=== PATIENT | male | born 1965 | race Caucasian/White ===

== ENCOUNTER 2019-01-02 11:42 | Outpatient (REF) | payer MEDICARE, SELFPAY ==
[2019-01-02 21:10] LABS: Abs Immature Grans 0.03 k/cumm (0.0-0.09); Absolute Basophil Count 0.05 k/cumm (0.0-0.2); Absolute Eosinophil Count 0.19 k/cumm (0.0-0.7); Absolute Lymphocyte Count 2.03 k/cumm (1.2-3.4); Absolute Monocyte Count 0.88 k/cumm (0.11-0.7); Absolute Neutrophil Count 7.65 k/cumm (1.2-6.7); Basophils % 0.5; Eosinophils % 1.8; HCT 43.7 % (40.0-50.0); HGB 14.2 g/dL (13.5-17.5); Immature Grans % 0.3; Lymphocytes % 18.7; Mean Corp. HGB Concentration 32.5 g/dL (32.0-36.0); Mean Corpuscular Hemoglobin 31.2 pg (27.0-33.0); Mean Platelet Volume 11.9 fL (8.0-11.0); Monocytes % 8.1; Neutrophils % 70.6; Platelet Count 255 x1000/uL (130-400); RBC 4.55 m/cumm (4.50-6.00); RBC Distribution Width 12.8 % (11.8-14.1); White Blood Cell Count 10.83 k/cumm (4.4-10.8)
[2019-01-02 21:34] LABS: ALT 47 U/L (12-78); AST 31 U/L (15-37); Albumin 4.1 g/dL (3.4-5.0); Alkaline Phosphatase 139 U/L (46-116); BUN 16 mg/dL (7-18); Bilirubin, Total 0.7 mg/dL (0.2-1.0); Calcium 9.6 mg/dL (8.5-10.1); Chloride 104 mmol/L (98-107); Glucose 83 mg/dL (70-100); Lipase 139 U/L (73-393); Potassium 4.7 mmol/L (3.5-5.1); Sodium 141 mmol/L (136-145); Total Protein 6.9 g/dL (6.4-8.2)
[2019-01-02 22:19] LABS: ESR 17 MM/HR (1-20)
[2019-01-06 10:07] LABS: PSA, Screening 5.4 ng/ml (0-3.5)
== END 2019-01-02 12:02 ==
LOC: NCHCN 11:42
PROVIDERS: PCP Family Medicine; Visit Provider Family Medicine
DX: R11.10 Vomiting, unspecified (principal); K50.90 Crohn's disease, unspecified, without complications; R10.9 Unspecified abdominal pain; Z12.5 Encounter for screening for malignant neoplasm of prostate
CPT/HCPCS: 80053; 83690; 84153; 85652; 85025; 86140

== ENCOUNTER 2019-04-24 13:00 | Outpatient (CLI) | payer MEDICARE, SELFPAY ==
--- NOTE | 2019-04-24 11:30 | DI.RAD_ITS ---
SYMPTOM/DIAGNOSIS: COUGH, R05 PA AND LATERAL CHEST: No priors for comparison. Heart size and pulmonary vasculature are within normal limits. No focal infiltrates, effusions or pneumothoraces are identified. There is a question of an ovoid soft tissue nodule to the left of the right hilum. Pulmonary nodule cannot be excluded. CT scan of the chest is recommended for further evaluation. The bones appear intact. IMPRESSION: Question of a small right perihilar nodule. CT scan of the chest is recommended for further evaluation.
== END 2019-04-24 13:20 ==
PROVIDERS: PCP Family Medicine; Visit Provider Physician Assistant Medical
DX: R05 Cough (principal); R91.1 Solitary pulmonary nodule
CPT/HCPCS: 71046

== ENCOUNTER 2019-04-29 11:31 | Outpatient (CLI) | payer MEDICARE, SELFPAY ==
[2019-04-29 13:22] LABS: CREATININE 1.18 mg/dL (0.70-1.30)
== END 2019-04-29 11:51 ==
PROVIDERS: PCP Family Medicine; Visit Provider Family Medicine
DX: R91.1 Solitary pulmonary nodule (principal)
CPT/HCPCS: 36415; 82565

== ENCOUNTER 2019-05-05 01:02 | Outpatient (CLI) | payer MEDICARE, SELFPAY ==
[2019-05-05] MEDS: Omnipaque 350 MG/ML 100 ML BTL IV (08:56)
--- NOTE | 2019-05-05 08:57 | DI.CT_ITS ---
SYMPTOM/DIAGNOSIS: PULMONARY NODULE R91.[address]: Comparison is made with plain films dated 24 April 2019.which questioned a small right perihilar nodule. Post contrast exam was performed. There is mild bilateral apical scarring. No suspicious pulmonary nodules are identified. There is a tiny calcification in the right upper lobe. A tiny nodule is seen anterior in the left upper lobe. There is no evidence of adenopathy, infiltrate, pleural or pericardial effusion. The heart size is normal. There are mild coronary artery calcifications. The thyroid appears normal. There are mild degenerative changes in the spine as well as moderate scoliosis. There is an incidental left anterior chest wall asymmetry. The visualized portions of the upper abdomen are unremarkable. IMPRESSION: No evidence of perihilar nodule or other significant abnormality.
== END 2019-05-05 01:22 ==
PROVIDERS: PCP Family Medicine; Visit Provider Physician Assistant Medical
DX: R91.1 Solitary pulmonary nodule (principal); J98.4 Other disorders of lung
CPT/HCPCS: 71260; J3490

== ENCOUNTER 2019-05-14 01:35 | Outpatient (CLI) | payer MEDICARE, SELFPAY ==
--- NOTE | 2019-05-14 | PFT_ITS ---
PULMONARY FUNCTION TEST REPORT Patient - Krishan Monte DATE OF SERVICE May 14, 2019 REQUESTING PROVIDER Natty Mckinney M.D. INTERPRETATION OF STUDY Spirometry shows mild obstructive airways disease with no significant bronchodilator response. LUNG VOLUMES - Lung volumes show no evidence of restriction. DIFFUSION CAPACITY- Normal. AIRWAY RESISTANCE - Normal. IMPRESSION Mild obstructive airways disease with no significant bronchodilator response. Clinical correlation recommended. Val Givens M.D. SHARON/ T- 05/15/2019
[2019-05-14] MEDS: Inhaler, Assist Device 1 EACH MC (16:01)
[2019-05-14] MEDS: Albuterol HFA 18 GM 200 PUFF INH IH (16:01)
== END 2019-05-14 01:55 ==
PROVIDERS: PCP Family Medicine; Visit Provider Internal Medicine Hematology
DX: R05 Cough (principal); R06.09 Other forms of dyspnea; F17.210 Nicotine dependence, cigarettes, uncomplicated; J98.8 Other specified respiratory disorders
CPT/HCPCS: 94060; 94150; 94726; 94729

== ENCOUNTER 2019-06-17 10:20 | Outpatient (REF) | payer MEDICARE, SELFPAY ==
[2019-06-17 22:20] LABS: HCT 43.7 % (40.0-50.0); HGB 14.3 g/dL (13.5-17.5); Mean Corp. HGB Concentration 32.7 g/dL (32.0-36.0); Mean Corpuscular Hemoglobin 31.7 pg (27.0-33.0); Mean Corpuscular Volume 96.9 fL (80-95); Mean Platelet Volume 12.1 fL (8.0-11.0); Platelet Count 204 x1000/uL (130-400); RBC 4.51 m/cumm (4.50-6.00); RBC Distribution Width 14.1 % (11.8-14.1); White Blood Cell Count 14.74 k/cumm (4.4-10.8)
[2019-06-17 22:30] LABS: ALT 100 U/L (12-78); AST 24 U/L (15-37); Albumin 3.6 g/dL (3.4-5.0); Alkaline Phosphatase 107 U/L (46-116); Anion Gap 9.6 mmol/L (3-11); BUN 14 mg/dL (7-18); Bilirubin, Total 0.5 mg/dL (0.2-1.0); CO2 26.4 mmol/L (21.0-32.0); CREATININE 1.11 mg/dL (0.70-1.30); Calcium 9.5 mg/dL (8.5-10.1); Chloride 104 mmol/L (98-107); Glucose 105 mg/dL (70-100); Potassium 4.3 mmol/L (3.5-5.1); Sodium 140 mmol/L (136-145)
[2019-06-19 11:38] LABS: PSA, Diagnostic 7.2 ng/ml (0-3.5)
== END 2019-06-17 10:40 ==
LOC: NCHCN 10:20
PROVIDERS: PCP Family Medicine; Visit Provider Family Medicine
DX: R10.9 Unspecified abdominal pain (principal); K50.90 Crohn's disease, unspecified, without complications; Z93.2 Ileostomy status; R97.20 Elevated prostate specific antigen [PSA]
CPT/HCPCS: 80053; 85027; 84153

== ENCOUNTER 2019-09-05 15:42 | Outpatient (REF) | payer MEDICARE, SELFPAY ==
[2019-09-12 11:30] LABS: Codeine Negative ng/mL (Cutoff: 25); Dihydrocodeine 483 ng/mL (Cutoff: 25); Hydrocodone 1570 ng/mL (Cutoff: 25); Hydromorphone 1115 ng/mL (Cutoff: 25); Morphine Negative ng/mL (Cutoff: 25); Naloxone Negative ng/mL (Cutoff: 25); Norhydrocodone 2773 ng/mL (Cutoff: 25); Noroxycodone Negative ng/mL (Cutoff: 25); Noroxymorphone Negative ng/mL (Cutoff: 25); Opiates Interpretation Positive.
== END 2019-09-05 16:02 ==
LOC: NCHCN 15:42
PROVIDERS: PCP Family Medicine; Visit Provider Family Medicine
DX: K50.90 Crohn's disease, unspecified, without complications (principal); R10.9 Unspecified abdominal pain; F11.20 Opioid dependence, uncomplicated
CPT/HCPCS: 80361

== ENCOUNTER 2019-12-09 00:24 | Outpatient (CLI) | payer MEDICARE, SELFPAY ==
--- NOTE | 2019-12-09 08:13 | DI.NM_ITS ---
APPROVED REPORT Exam: Exercise Treadmill Patient Location: Out-Patient Room/Bed: Stress Nurse: Kathleen James RN BMI: 0 Baseline Rhythm: Sinus Rhythm with ST elevation in anterior, lateral and inferior leads. Indications: Since last spring patient reports he gets ???tired??? with activity which has recently g jenae ???progressively worse???. He denies any other associated symptoms. His significant other state s when he has these episodes he ???melts???. Medical History Cardiac Medications: Aspirin Allergies: No known drug allergies Cardiac Risk Factors: FHX of CAD, Smoking Previous Cardiac Procedures: None Pretest Chest Pain Characteristics: None Exercise History: Usually active, recently sedentary d/t weakness and tiredness with activity Physical Disabilities: None Lung Sounds: Clear to auscultation Heart Sounds: Regular Stress Test Details Test: Exercise stress testing was performed using a Anmol protocol. Rest Isotope: Tc-99m Sestamibi. Dose: 10.7 Date: 12/09/2019 Injection Time: 0830 Stress Isotope: Tc-99m Sestamibi. Dose: 32.9 Date: 12/09/2019 Injection Time: 0940 HR Max Heart Rate (APMHR): 165 bpm Resting HR Supine: 70 bpm Target HR (85% APMHR): 140 bpm Resting HR Standin bpm Max HR Achieved: 152 bpm % of APMHR: 92 HR response to stress: Normal HR response to stress BP Resting BP Supine: 120/70 mmHg Resting BP Standin/70 mmHg Max BP: 160/80 mmHg BP response to stress: Normal blood pressure response to stress. ECG Resting ECG: Sinus Rhythm with 1mm ST elevations in ant/inf/lat leads ST Change: Non-ischemic Ectopy: none Stress ECG: Sinus Tachycardia ST Change: Normal Arrhythmia: None Recovery ECG: Sinus Rhythm Recovery ST Change: Normal Recovery Arrhythmia: None Clinical Stress Symptoms: This nurse had to stop treadmill as patient was starting to miss steps while walking . He became ???very weak and very tired??? and staff needed to assist patient to chair before moving to stretcher. He denies any other symptoms. Exercise duration: 5 min51 sec Highest Stage Achieved: Stage 2: 2.5 mph at 12% grade. Exercise capacity: 7.05 METs Functional Capacity: Moderately diminished capacity Stress ECG Conclusion 1. Patient exercised for 5 minutes 51 seconds (7 METS) 2. Patient achieved 92% of predicted heart rate. Rate-pressure product was 23,[address] elevations normalized with exercise and disappeared during recovery. 4. There is no evidence of ischemia on the imaging portion of this exam Protocol Used: Anmol Protocol Stress Test Summary STAGE Time (mins) Speed (mph) Grade (%) HR BP SYMPTOMS METS Supine 70 120/70 Standing 76 110/70 1 3 1.7 10 126 120/70 4.6 2 6 2.5 12 145 160/80 7 3 9 3.4 14 10.2 4 12 4.2 16 12.9 5 15 5.0 18 17.2 1 min recovery 98 140/70 3 min recovery 77 110/70 6 min recovery MPI Conclusion Patient's ejection fraction was 45% with exercise. There were no wall motion abnormalities. No evidence of ischemia on the imaging portion of this exam This represents a normal SPECT stress test. Radiologist Interpretation Radiologist Interpretation by: Sy Oliver MD Interpretation Date/Time: 12/10/2019 15:15:19
== END 2019-12-09 00:44 ==
PROVIDERS: PCP Family Medicine; Visit Provider Internal Medicine Cardiovascular Disease
DX: R53.83 Other fatigue (principal); I44.7 Left bundle-branch block, unspecified; R68.89 Other general symptoms and signs; R94.31 Abnormal electrocardiogram [ECG] [EKG]; Z82.49 Family history of ischemic heart disease and other diseases of the circulatory system
CPT/HCPCS: 78452; 93016; 93018; 93017

== ENCOUNTER 2020-04-16 12:22 | Outpatient (REF) | payer MEDICARE, SELFPAY ==
[2020-04-16 19:55] LABS: HCT 42.4 % (40.0-50.0); HGB 13.7 g/dL (13.5-17.5); Mean Corp. HGB Concentration 32.3 g/dL (32.0-36.0); Mean Corpuscular Hemoglobin 30.6 pg (27.0-33.0); Mean Corpuscular Volume 94.6 fL (80-95); Mean Platelet Volume 12.2 fL (8.0-11.0); Platelet Count 233 x1000/uL (130-400); RBC 4.48 m/cumm (4.50-6.00); RBC Distribution Width 13.6 % (11.8-14.1)
[2020-04-16 20:43] LABS: ESR 10 mm/hr (1-20)
[2020-04-16 23:59] LABS: ALT 39 U/L (16-63); AST 31 U/L (15-37); Albumin 4.1 g/dL (3.4-5.0); Alkaline Phosphatase 147 U/L (46-116); Anion Gap 9.6 mmol/L (3-11); BUN 10 mg/dL (7-18); Bilirubin, Total 0.4 mg/dL (0.2-1.0); C-Reactive Protein 0.15 mg/dL (0.0-0.3); CO2 24.4 mmol/L (21.0-32.0); CREATININE 1.03 mg/dL (0.70-1.30); Calcium 9.2 mg/dL (8.5-10.1); Chloride 104 mmol/L (98-107); Glucose 91 mg/dL (74-106); Potassium 4.5 mmol/L (3.5-5.1); Sodium 138 mmol/L (136-145); TSH (W/Ref FT4) 0.61 uIU/mL (0.36-3.74); Total Protein 6.5 g/dL (6.4-8.2)
[2020-04-17 00:57] LABS: Vitamin B12 255 pg/mL (193-986)
[2020-04-19 10:37] LABS: PSA, Diagnostic 1.9 ng/mL (0.0-3.5)
== END 2020-04-16 12:42 ==
LOC: NCHCN 12:22
PROVIDERS: PCP Family Medicine; Visit Provider Family Medicine
DX: R53.83 Other fatigue (principal); R10.9 Unspecified abdominal pain; C61 Malignant neoplasm of prostate
CPT/HCPCS: 80053; 85027; 85652; 82607; 84153; 84443; 86140

== ENCOUNTER 2020-07-09 10:49 | Outpatient (REF) | payer MEDICARE, SELFPAY ==
[2020-07-09 20:23] LABS: Vitamin B12 638 pg/mL (193-986)
== END 2020-07-09 11:09 ==
LOC: NCHCN 10:49
PROVIDERS: PCP Family Medicine; Visit Provider Family Medicine
DX: E53.8 Deficiency of other specified B group vitamins (principal)
CPT/HCPCS: 82607

== ENCOUNTER 2020-08-31 10:00 | Outpatient (CLI) | payer MEDICARE, SELFPAY ==
[2020-09-03 10:23] LABS: PSA, Ultrasensitive 1.1 ng/mL (<= 3.5)
== END 2020-08-31 10:20 ==
PROVIDERS: PCP Family Medicine; Visit Provider Radiology Radiation Oncology
DX: C61 Malignant neoplasm of prostate (principal)
CPT/HCPCS: 36415; 84153

== ENCOUNTER 2020-10-07 01:20 | Outpatient (CLI) | payer MEDICARE, SELFPAY ==
--- NOTE | 2020-10-07 | DI.RAD_ITS ---
EXAM: XR ARTHRITIS SERIES CLINICAL HISTORY: ARTHRALGIAS,M25.50. TECHNIQUE: 2D digital imaging was performed. COMPARISON: No exams were available for comparison FINDINGS: BONES: No acute fracture is present. No bony destructive lesion is seen. There is mild periarticular spurring at the 1st CMC joints bilaterally and PIP joints of the right index and middle fingers. The bones are normally mineralized. JOINTS: No dislocation present. SOFT TISSUE: Normal. IMPRESSION: Mild degenerative changes of the hands. DATA REPOSITORY: RADIATION DOSE DELIVERED:
--- NOTE | 2020-10-07 | DI.RAD_ITS ---
EXAM: XR KNEE RT 3V AP,LAT,NUSRAT CLINICAL HISTORY: RT KNEE PAIN,M25.50. TECHNIQUE: 2D digital imaging was performed. COMPARISON: CR RIGHT KNEE 3 VIEWS from 06/15/2014 CR XR CHEST 2V PA LATERAL from 04/24/2019 FINDINGS: BONES: No acute fracture is present. No bony destructive lesion is seen. There is a subchondral lucen cy at the articular surface in the medial femoral condyle. JOINTS: The knee is normally aligned. No joint effusion is seen. No loose body is identified. Mild narrowing of the medial femoral tibial joint. SOFT TISSUE: Normal. IMPRESSION: Small subchondral lucency at the articular surfaces in the medial femoral condyle. This may be degen erative in nature. An osteochondral lesion may also have this appearance. An MRI of the knee may be considered for further evaluation. DATA REPOSITORY: RADIATION DOSE DELIVERED:
== END 2020-10-07 01:40 ==
PROVIDERS: PCP Family Medicine; Visit Provider Family Medicine
DX: M25.561 Pain in right knee (principal); M19.042 Primary osteoarthritis, left hand; M19.041 Primary osteoarthritis, right hand
CPT/HCPCS: 73562; 73120

== ENCOUNTER 2020-10-21 01:01 | Outpatient (CLI) | payer MEDICARE, SELFPAY ==
--- NOTE | 2020-10-21 | DI.MRI_ITS ---
EXAM: MR LOWER JOINT RT WO CLINICAL HISTORY: PAINFUL KNEE JOINT ON MOVEMENT,M25.569. TECHNIQUE: Multiplanar multisequence MRI was performed. COMPARISON: CR XR KNEE RT 3V AP,LAT,NUSRAT from 10/07/2020 CR XR KNEE RT 3V AP,LAT,NUSRAT from 10/07/2020 FINDINGS: Effusion: There is a small knee joint effusion. There is no Ramires cyst in the popliteal fossa. Marrow: No evidence of fracture. Multilevel subarticular bone edema noted in the femoral condyles an d intracondylar region. No significant signal abnormality in the tibial plateau although there is so me degenerative subarticular signal on the tibial side of the tibial fibular joint, not associated wi th an effusion in the tibiofibular joint. Patellofemoral compartment: The quadriceps tendon is intact. The patella are ligament is intact. Th ere is no thinning of the retropatellar cartilage over the lateral facet. Over the medial facet ther e is a small focus of signal abnormality in the retropatellar cartilage with a small focus of 2 x 3 m illimeter subarticular signal in the posterior patella at this level. No evidence of unstable osteoc hondral defect at this level. There is no intraosseous signal to suggest recent patellar dislocation . There are no patellar retinacular tears. Cruciate ligaments: Anterior cruciate ligament is intact. The posterior cruciate ligament is intact. Medial compartment/medial meniscus: There is no bleak tear in the posterior horn of the medial menisc us. Mild extrusion of the posterior horn is noted. There is mild extrusion of the anterior horn not ed. There is significant signal abnormality the Glade cartilage over the medial femoral condyle a nd there is a prominent osteochondral defect in the weight-bearing surface of the medial femoral cond yle which measures 1.7 centimetres AP by a 0.6 centimetres wide by 0.5 centimetres deep. This does n ot exhibit subjacent hyperintense linear signal nor subjacent intraosseous cyst to suggest true insta bility and there does not appear to be an obvious loose intra-articular body. There appears to be sm all intra-articular weight-bearing surface osteophyte at this level. Also what appears to be another forming osteochondral defect slightly more anteriorly over the weight-bearing surface of the medial femoral condyle. There are no marginal osteophytes in the medial compartment. Medial collateral ligament: Mild increased signal. No high-grade tear. Lateral compartment/lateral meniscus: There is no evidence of lateral meniscal tear. There are there is only mild cartilage signal abnormality over the lateral femoral condyle. No osteochondral defect s. Intercondylar notch: There is significant subarticular signal abnormality within the intercondylar no tch notch of the femur. There is small osteochondral defect on the lateral aspect of the intercondyl ar notch at this level. Iliotibial band: Intact Lateral collateral ligament complex: Fibular collateral ligament and biceps femoris tendons are intac t. Small amount of increased fluid in the popliteus tendon sheath but no significant tear of this st ructure nor of the musculotendinous junction. No abnormal intraosseous signal in the fibular styloid . IMPRESSION: 1. Tear of the posterior horn of the medial meniscus with mild-moderate extrusion. No meniscocapsula r separation. No bucket-handle configuration. No degenerative meniscal cyst. 2. Significant hyaline cartilage findings over the medial femoral condyle as described above includi ng a prominent osteochondral defect which corresponds to the finding described on the recent plain fi lms. Similar findings are not seen over the lateral femoral condyle but there is significant subarti cular signal abnormality over the anterior intercondylar notch with a small osteochondral defect form ing at this level also. 3. No evidence of tear of the lateral meniscus nor significant degenerative changes in the lateral co mpartment. 4. Small focus of abnormality in the Glade cartilage over the medial facet of the patella and smal l subjacent bone edema in the patella. No formed osteochondral defect at this level. No prominent t hinning of the retropatellar cartilage. 5. Cruciate and collateral ligaments are intact. DATA REPOSITORY:
== END 2020-10-21 01:21 ==
PROVIDERS: PCP Family Medicine; Visit Provider Family Medicine
DX: M25.461 Effusion, right knee (principal); S83.241A Other tear of medial meniscus, current injury, right knee, initial encounter
CPT/HCPCS: 73721

== ENCOUNTER → 2020-12-08 13:23 | Outpatient (BNVA) | payer OTHER, SELFPAY | PROVIDERS: PCP Family Medicine; Referring Provider Family Medicine; Visit Provider Student in an Organized Health Care Education/Training Program | DX: M17.11 Unilateral primary osteoarthritis, right knee (principal); M23.91 Unspecified internal derangement of right knee | CPT/HCPCS: 99204 ==

== ENCOUNTER 2020-12-21 22:50 | Outpatient (REF) | payer OTHER, SELFPAY ==
[2020-12-21 21:25] LABS: HCT 42.1 % (40.0-50.0); HGB 13.8 g/dL (13.5-17.5); MCH 31.3 pg (27.0-33.0); MCHC 32.8 % (32.0-36.0); MCV 95.5 fL (80-95); MPV 11.8 fL (8.0-11.0); Platelet Count 261 10^3/uL (130-400); RBC 4.41 10^6/uL (4.36-5.78); WBC 10.25 10^3/uL (4.4-10.8)
[2020-12-21 21:57] LABS: ALT 30 U/L (16-63); AST 20 U/L (15-37); Albumin 3.8 g/dL (3.4-5.0); Alkaline Phosphatase 128 U/L (46-116); Anion Gap 9.6 mmol/L (3-11); BUN 11 mg/dL (7-18); Bilirubin, Total 0.3 mg/dL (0.2-1.0); CO2 26.4 mmol/L (21.0-32.0); CREATININE 0.9 mg/dL (0.70-1.30); Chloride 106 mmol/L (98-107); Glucose 84 mg/dL (74-106); Potassium 4.1 mmol/L (3.5-5.1); Sodium 142 mmol/L (136-145); Total Protein 6.4 g/dL (6.4-8.2)
[2020-12-22 17:52] LABS: PSA, Diagnostic 1.6 ng/mL (0.0-3.5)
== END 2020-12-21 22:51 | disposition home or self-care (01) ==
LOC: NCHCN 22:50
PROVIDERS: PCP Family Medicine; Visit Provider Family Medicine
DX: C61 Malignant neoplasm of prostate (principal); M25.59 Pain in other specified joint; M25.561 Pain in right knee; R10.9 Unspecified abdominal pain
CPT/HCPCS: 80053; 85027; 84153

== ENCOUNTER 2021-01-17 14:32 | Outpatient (CLI) | payer OTHER, SELFPAY ==
--- NOTE | 2021-01-17 14:15 | DI.RAD_ITS ---
EXAM: XR STANDING ALIGNMENT CLINICAL HISTORY: right knee pain. TECHNIQUE: 2D digital imaging was performed. COMPARISON: CT ABD PELVIS WITH CONTRAST from 04/25/2017 CR XR KNEE RT 3V AP,LAT,NUSRAT from 10/07/2020 MR MR LOWER JOINT RT WO from 10/21/2020 FINDINGS: The hips are well maintained. There is ankylosis of the sacroiliac joints. There is an osteochondra l defect in the medial femoral condyle of the right knee. The knees are otherwise unremarkable. The ankles are well maintained. The left lower extremity measures 97.1 cm. The right lower extremity m easures 96.8 cm. IMPRESSION: DATA REPOSITORY: RADIATION DOSE DELIVERED:
--- NOTE | 2021-01-17 14:15 | DI.RAD_ITS ---
EXAM: XR KNEE LT 3V AP,LAT,NUSRAT CLINICAL HISTORY: left knee pain. TECHNIQUE: 2D digital imaging was performed. COMPARISON: No previous for comparison. FINDINGS: BONES: No acute fracture is present. No bony destructive lesion is seen. JOINTS: The knee is normally aligned. No joint effusion is seen. SOFT TISSUE: Normal. IMPRESSION: Normal radiographs of the left knee. DATA REPOSITORY: RADIATION DOSE DELIVERED:
== END 2021-01-17 14:33 | disposition home or self-care (01) ==
LOC: DIORS 14:32
PROVIDERS: PCP Family Medicine; Referring Provider Family Medicine; Visit Provider Student in an Organized Health Care Education/Training Program
DX: M25.562 Pain in left knee (principal); M17.11 Unilateral primary osteoarthritis, right knee; M23.91 Unspecified internal derangement of right knee
CPT/HCPCS: 73562; 99214; 77073

== ENCOUNTER 2021-02-03 01:31 | Outpatient (CLI) | payer OTHER, SELFPAY ==
--- NOTE | 2021-02-03 | DI.US_ITS ---
EXAM: US BREAST RT LIMITED CLINICAL HISTORY: RT BREAST LUMP, N63.0. TECHNIQUE: Limited ultrasound of the right breast was performed. COMPARISON: None FINDINGS: Submitted images reveal what appears be mild gynecomastia in the retroareolar region breast. Maximum diameter 21 x 16 millimeter IMPRESSION: Probable gynecomastia. Recommend mammogram. Apparently this was not able to be performed today and will have to be scheduled. BI-RADS Category 0 - Assessment Incomplete: Need additional imaging evaluation Breast Density - Category A - Almost entirely fatty Breast density Category C or D implies that the patient has dense breast tissue. Dense breast tissue can make it harder to find cancer on a mammogram. Dense breast tissue is also associated with an incr eased risk of breast cancer. This information about the result of the mammogram report was provided to the patient to raise their awareness. Use this report when you speak with the patient about their risks for breast cancer, which includes their family history. At that time, you may recommend additional screening tests (Ultrasoun d or MRI) as these tests may add significant information. A negative radiographic report should not delay biopsy if a dominant or clinically suspicious mass is present. Up to ten percent of cancers are not identified on mammography. A negative report may reinforce clinical impression. Adenosis and dense breasts may obscure an underlying neoplasm. False positive reports average 6 to 10%. Patient will receive a letter notifying them of these results.
[2021-02-03] MEDS: Normal Saline - Diluent 50 ML VIAL IV (15:13)
[2021-02-03] MEDS: Omnipaque 350 MG/ML 100 ML BTL IJ (15:14)
--- NOTE | 2021-02-03 15:15 | DI.CT_ITS ---
EXAM: CT ABDOMEN PELVIS W CLINICAL HISTORY: ABD PAIN, R10.9. TECHNIQUE: Imaging Protocol: Axial computed tomography images with coronal and sagittal reformatted images were created and reviewed CONTRAST MATERIAL: Intravenous: Omnipaque 100cc Oral: Yes COMPARISON: CT ABD PELVIS WITH CONTRAST from 04/25/2017 FINDINGS: VISUALIZED LUNG BASES: Mild benign-appearing increased markings in the left lung base posterior basal segment left lower lobe. No pleural effusions.. ABDOMEN: Right-sided ileostomy is noted. There has been prior colectomy. Small bowel loop diameters are norm al and minimally prominent, measuring up to 3 cm. There does not appear to be a high-grade bowel obs truction. No free air. No ascites. No abscess. LIVER: There are no obvious focal hepatic lesions evident . GALLBLADDER/BILIARY: Subtle suggestion of some gallbladder wall edema. No obvious calculi. CBD is n ot dilated. PANCREAS: No evidence of pancreatic mass nor dilatation of the pancreatic duct. SPLEEN: Spleen is not enlarged. No obvious intrasplenic lesions. Splenic and portal veins are paten t. ADRENALS: There are no significant adrenal masses. KIDNEYS:No cysts evident. No solid renal masses. No calculi nor hydronephrosis.. ABDOMINAL AORTA: Abdominal aorta is not enlarged. LYMPH NODES:There is no retroperitineal nor paraaortic adenopathy. ABDOMINAL WALL/GI: No evidence of significant anterior abdominal wall hernia. PELVIS: GI: Colon is surgically absent LYMPH NODES: There is no intrapelvic nor inguinal adenopathy. REPRODUCTIVE: Clips now evident in the region of the prostate. Prostate is small or surgically absen t. URINARY BLADDER: Small. Not distended. OSSEOUS: There is a sclerotic blastic bone lesion in the left iliac bone which measures 12 by 10 mill imeters and is suspicious for metastatic osseous disease-blastic. Smaller sclerotic densities in the opposite-right iliac bone are noted but are unchanged from 2017 and therefore doubtful metastatic There is ankylosis of both sacroiliac joints in this patient with a history of inflammatory bowel dis ease. IMPRESSION: 1. There is a sclerotic bone lesion in the left iliac bone which measures 12 x 10 by 13 millimeters, suspicious for blastic metastatic disease. Other smaller sclerotic bone densities in the iliac wings also noted.. There are no sclerotic bone lesions evident in the lumbar vertebrae. 2. There is ankylosis of the sacroiliac joints in this patient with chronic history of inflammatory b owel disease. 3. Right-sided ileostomy. Colon is surgically absent. There does not appear to be a significant bow el obstruction. There is no evidence of perforation nor abscess. No free fluid 4. Mild benign appearing increased markings in the left lung base. No pleural effusions. RADIATION DOSE DELIVERED: 694.55mGy.cm Total DLP DATA REPOSITORY: All CT scans at this facility are submitted to the National Radiology Data Registry (NRDR) Dose Index Registry (DIR) with the [employer] (ACR). RADIATION OPTIMIZATION: All CT scans at this facility use at least one of these dose optimization te chniques: automated exposure control; mA and/or kV adjustment per patient size (includes targeted exa ms where dose is matched to clinical indication); or iterative reconstruction.
== END 2021-02-03 01:51 ==
PROVIDERS: PCP Family Medicine; Visit Provider Family Medicine
DX: M89.8X8 Other specified disorders of bone, other site (principal); M43.28 Fusion of spine, sacral and sacrococcygeal region; Z93.2 Ileostomy status; R10.9 Unspecified abdominal pain; R92.8 Other abnormal and inconclusive findings on diagnostic imaging of breast
CPT/HCPCS: 76642; 74177; J3490

== ENCOUNTER 2021-02-07 03:45 | Outpatient (CLI) | payer OTHER, SELFPAY ==
[2021-02-07 10:44] LABS: HCT 41.7 % (40.0-50.0); HGB 13.4 g/dL (13.5-17.5); MCH 31.8 pg (27.0-33.0); MCHC 32.1 % (32.0-36.0); MPV 10.5 fL (8.0-11.0); Platelet Count 250 10^3/uL (130-400); RBC 4.21 10^6/uL (4.36-5.78); RDW 12.6 % (11.8-14.1); RDW-SD 46.1 fL; WBC 10.03 10^3/uL (4.4-10.8)
[2021-02-07 11:18] LABS: Anion Gap 6.6 mmol/L (3-11); BUN 12 mg/dL (7-18); CO2 26.4 mmol/L (21.0-32.0); Calcium 9.1 mg/dL (8.5-10.1); Chloride 105 mmol/L (98-107); Glucose 121 mg/dL (74-106); Sodium 138 mmol/L (136-145)
[2021-02-07 11:29] LABS: Source Nasal/Nares
[2021-02-07 14:34] LABS: COVID-19 PCR Negative (Negative)
== END 2021-02-07 03:46 | disposition home or self-care (01) ==
LOC: LBO 03:45
PROVIDERS: PCP Family Medicine; Visit Provider Student in an Organized Health Care Education/Training Program
DX: M25.561 Pain in right knee (principal); M17.11 Unilateral primary osteoarthritis, right knee; Z20.822 Contact with and (suspected) exposure to COVID-19; Z01.818 Encounter for other preprocedural examination; Z01.812 Encounter for preprocedural laboratory examination
CPT/HCPCS: 36415; 80048; 85027; 86850; 86900; 86901; 86920; 87635; 86870; 86902

== ENCOUNTER 2021-02-08 01:43 | Outpatient (CLI) | payer OTHER, SELFPAY ==
--- NOTE | 2021-02-08 09:52 | DI.MAMMO_ITS ---
EXAM: MG MAMMO DIAGNOSTIC BI CLINICAL HISTORY: F/U US, RT BREAST LUMP, N63.0, PROBABLE GYNECOMASTIA. TECHNIQUE: Craniocaudal and mediolateral oblique Full Field Digital Mammography views with Computer Aided Diagnosis. COMPARISON: US US BREAST RT LIMITED from 02/03/2021 FINDINGS: Mammography/Tomosynthesis: Masses/Architectural Distortion: None seen. Fibrofatty tissue is seen in the retroareolar region of b oth breasts, right greater than left. No mass is identified. Microcalcifictions: No suspicious pleomorphic-type are seen. Skin Thickening/Nipple Retraction: None. IMPRESSION: 1. Bilateral fibrofatty tissue in the retroareolar region of both breasts consistent with gynecomasti a. No evidence of a mass. 2. The mammographic findings correspond to the sonographic findings from 02/03/2021. 3. The findings were discussed with the patient on the date of the examination. BI-RADS Category 2 - Benign Findings Breast Density - Category B - Scattered areas of fibroglandular density Breast density Category C or D implies that the patient has dense breast tissue. Dense breast tissue can make it harder to find cancer on a mammogram. Dense breast tissue is also associated with an incr eased risk of breast cancer. This information about the result of the mammogram report was provided to the patient to raise their awareness. Use this report when you speak with the patient about their risks for breast cancer, which includes their family history. At that time, you may recommend additional screening tests (Ultrasoun d or MRI) as these tests may add significant information. A negative radiographic report should not delay biopsy if a dominant or clinically suspicious mass is present. Up to ten percent of cancers are not identified on mammography. A negative report may reinforce clinical impression. Adenosis and dense breasts may obscure an underlying neoplasm. False positive reports average 6 to 10%. Patient will receive a letter notifying them of these results.
== END 2021-02-08 02:03 ==
PROVIDERS: PCP Family Medicine; Visit Provider Family Medicine
DX: R92.8 Other abnormal and inconclusive findings on diagnostic imaging of breast (principal)
CPT/HCPCS: 77062; 77066; G0279

== ENCOUNTER 2021-02-09 07:16 | Day surgery (SDC) | payer OTHER, SELFPAY ==
[2021-02-09] VITALS (7 sets, daily range): BP systolic 109–148; BP diastolic 64–75; PULSE 58–85; RESP 14–22; TEMP 36.4–36.9; O2SAT 98–100
--- NOTE | 2021-02-09 07:47 | W.PM.DSUDISC ---
Discharge Plan Disposition Patient Disposition: HOME Condition: Stable Discharge Details Reason For Visit: Right TKA Attending Provider: Ector Irizarry Primary Care Provider: Natty Mckinney V Home Meds and New Rx's Prescriptions: New aspirin 81 mg tablet,delayed release (DR/EC) 81 mg PO BID Qty: 60 RF: 0 celecoxib [Celebrex] 200 mg capsule 200 mg PO BID Qty: 60 RF: 0 pantoprazole [Protonix] 40 mg tablet,delayed release (DR/EC) 40 mg PO DAILY Qty: 30 RF: 0 acetaminophen [Tylenol Extra Strength] 500 mg tablet 500 mg PO Q6H PRNQty: 90 RF: 0 oxycodone 10 mg tablet 10 mg PO Q6H PRNQty: 18 RF: 0 gabapentin 100 mg capsule 100 mg PO TID Qty: 15 RF: 0 Continued mecobalamin (vitamin B12) 10,000 mcg recon soln 1,000 mcg IV MONTHLY RF: 0 diphenoxylate-atropine [Lomotil] 2.5-0.025 mg tablet 4 tab PO TID RF: 0 methadone [Dolophine] 10 mg tablet 10 mg PO TID RF: 0 albuterol sulfate [Ventolin HFA] 90 mcg/actuation HFA aerosol inhaler 2 puff inhalation Q4H PRNRF: 0 amoxicillin 500 mg Capsule 500 mg PO DAILY RF: 0 nicotine [Nicoderm CQ] 14 mg/24 hr Patch 24 Hour 1 patch TRANSDERMAL DAILY RF: 0 diclofenac sodium [Voltaren] 1 % Gel 2 - 4 g TOPICAL QID RF: 0 Narcan 4 mg/actuation [place],Non-Aerosol 1 spray INTRANASAL Q3M RF: 0 Discontinued hydrocodone-acetaminophen [Vicodin HP] 10-300 mg tablet 2 tab PO TID RF: 0 aspirin 81 mg Tablet,Delayed Release (Dr/Ec) 81 mg PO DAILY RF: 0 Discharge Instructions Additional Instructions: Total Knee Discharge Instructions Activity: The most important activity is to walk. You should try to take short walks a few times a day. It is important that when resting you work on keeping the knee straight. Avoid putting a pillow behind the knee as this will encourage flexion. Work on range of motion exercises as provided by Physical Therapy. - Start outpatient physical therapy within 2 weeks. - You should wear the CACHORRO hose on both legs for 2 weeks. You may remove these at night. You may also use any compression sock in place of the CACHORRO hose. Dressing: You may remove the [place] wrap on your leg 2 days after your surgery and put on the CACHORRO stocking given to you from the hospital. Keep the surgical dressing (underneath the [place] wrap) in place for at least one week. After the first week it may be removed and replaced with light gauze and tape or nothing. The wound and dressing may get wet after 3 days but avoid soaking the dressing or otherwise it will need to be changed. Many people prefer covering the dressing with cling wrap (saran wrap) to minimize it from getting soaked. If it gets wet, just pat dry. If it starts to peel off then it will need to be changed. Medications: - You should take Tylenol and anti-inflammatory Celebrex as your primary pain control medications. If the Celebrex is too expensive or not covered, please call the office for another alternative (Advil/Ibuprofen or Naproxen/Aleve) - You have been prescribed a stronger pain medication Oxycodone for breakthrough pain, take as needed as prescribed. Please speak with Dr. Irizarry before resuming your hydrocodone/APAP - You have also been prescribed a stomach acid reduction agent Pantoprozole to help reduce stomach acid and reflux. - You have been prescribed Gabapentin to take at night for restlessness and nerve pain. - You will be taking Aspirin 81mg twice a day for DVT prevention unless instructed otherwise. - If you have constipation you should take Colace or Miralax (both [id number]). It takes most people 3-4 days to have a bowel movement. Follow-up: 2 weeks If you have any acute concerns or questions, please do not hesitate to contact the office at [phone]. You may contact Dr. Irizarry with any questions after hours through the hospital at [phone] or on his cell phone at [phone]. Referrals: Ector Irizarry MD [ [facility] STAFF PHYSICIAN] - Equipment/Supplies: Walker Activity:: Activity as Tolerated Remove Dressings/Wound Care:: Do Not Remove Shower/Bathe:: 48 hours Diet:: As Tolerated Discharge Orders Discharge Orders: Discharge Order (Routine); Ordered 02/09/21 Ordered By: Natty Arvizu DS: Diagnosis Discharge Diagnosis (1) Osteoarthritis of right knee: Status: Acute (2) Internal derangement of right knee: Status: Acute
[2021-02-09] MEDS: Acetaminophen 500 MG TAB 1000 MG PO (08:17)
[2021-02-09] MEDS: Celecoxib 200 MG CAP 400 MG PO (08:18)
[2021-02-09] MEDS: Lactated Ringers 1,000 ML 80 ML IV (08:18)
--- NOTE | 2021-02-09 09:30 | NUR.NOTE ---
02/08/21 Patient ambulated to Bathroom to void with RN. Patient ambulated back to stretcher.with no problems. Nursing Note:
[2021-02-09] MEDS: Bupivacaine 0.25% Pres-Free 30 ML VIAL ×2 (09:50→11:57)
[2021-02-09] MEDS: ceFAZolin 2 GM/50 ML BAG IVPB (11:00)
[2021-02-09] MEDS: Ketorolac 30 MG/ML VIAL (11:57)
[2021-02-09] MEDS: Normal Saline 20 ML VIAL (11:57)
--- NOTE | 2021-02-09 12:46 | ROE_ITS ---
Date of service: 02/09/21 Time of Service: 12:13 Operative Note Operative Note DATE OF PROCEDURE: 02/09/21 PRE-OP DIAGNOSIS: Right Knee Osteoarthritis POST-OP DIAGNOSIS: same PROCEDURE: Right Total Knee Replacement SURGEON: Ector Irizarry [facility] SPECIALISTS: Natty Arvizu ANESTHESIA TYPE: Spinal Refer to Anesthesia Record ESTIMATED BLOOD LOSS: 200 PATHOLOGY: none sent TOURNIQUET TIME: 0 COMPLICATIONS: None Patient was transported to: PACU Patient's condition: stable Implants: 1. Depuy Attune Cementless Cruciate Retaining Femoral Component, Size 8 2. Depuy Attune Cementless Rotating Platform Tibial Component, Size 6 3. Depuy Attune 8x6mm CR/RP Poly 4. Depuy Attune Patellar Component, Size 38mm Indications: I have seen Krishan in clinic for symptoms of knee arthritis, confirmed with radiographic findings. He has exhausted nonoperative methods and was having significant limitations in daily function and desired better function and less pain. I discussed the technical details of a knee replacement. I explained the risks of the procedure to include, but not limited to, bleeding, infection, pain, stiffness, fracture, damage to nerves and vessels, damage to muscles and tendons, loosening, need for repeat procedure, blood clot and cardi opulmonary demise. Despite these risks, Krishan elected to proceed. Findings: There was signs of arthritis throughout the medial knee. There was also softened and displaced cartilage of the patella. Procedure Description: Krishan was greeted in the preoperative holding area where the correct side was identified and marked. The consent was reviewed with the patient and signed. The history and physical was updated. All questions were answered. Preoperative medications were administered: Acetaminophen 1000mg, Celebrex 400mg, and Gabapentin 300mg. An adductor canal block was then administered by the anesthesia team in the PACU. Krishan was taken back to the operating room. A spinal anesthestic was then administered. The patient was placed into the supine position on the operating room table. A nonsterile tourniquet was placed high onto the leg but only used for cementing. Posts were placed for positioning during the procedure. All bony prominences were well padded. Prophylactic antibiotics in the form of Cefazolin were administered. 1g of Tranxemic Acid was given intravenously within 30 minutes of incision. The right leg was then prepped with Chloraprep and draped in a standard fashion with impervious stockinette. A second prep with Chloraprep was performed prior to application of Iodine impregnated skin protection. A timeout to confirm correct identity, side and site, procedure, allergies, anesthesia, and medical concerns was performed. With the knee in some flexion, a midline incision was made overlying the knee. Full thickness skin flaps were raised once the extensor mechanism was encountered. These were raised medially and laterally. Any bleeding was contro lled with electrocautery. Once the extensor mechanism was fully exposed, a medial parapatellar arthrotomy was performed in a flexed position. All bleeding from the arthrotomy and the geniculate arteries was coagulated. A medial subperiosteal peel was performed with electrocautery to the midcoronal plane. The fat pad was removed while keeping the patellar tendon protected. The anterior distal femur synovium was removed for later visualization. The ACL and PCL were resected and the anterior horn of the lateral meniscus was transected. The knee was then flexed with the patella everted. Using a step drill, and based on preoperative templating, the femoral canal was entered. This was done with a step drill without any difficulty. The intramedullary distal femoral cut guide was inserted, set to a 5 degree valgus cut and 9mm cut thickness. The distal femoral cut guide was then held in position and pinned. With the soft tissues protected, the distal cut was performed. This was passed over a few times to ensure a planar cut. I then turned attention to the tibia. The extramedullary guide was placed onto the leg. The distal aspect was slid medial to adjust for position of center of ankle and stay in line with shaft of the tibia. Approximately 3-5 degrees of posterior slope was kept in the proximal cutting guide. The center of the guide was aligned with the PCL. The stylus was used to assess cut thickness. The medial side, most involved side, was set for a 5mm cut which corresponded to 8mm laterally. This was then held in position and pinned into place with 2 additional pins and a cross pin for stability. The medial and lateral collateral ligaments were protected and the cut was performed. With this completed, it was assessed and noted to be of appropriate dimensions. The guide was removed. A spacer block was inserted and the knee was brought into extension. The 6mm spacer block provided full extension, without hyperextension and with stability of both the medial and lateral collateral ligaments was assessed. The pins from the femur and the tibia were then removed. The distal femur was then sized. The anterior stylus was placed onto the l ateral ridge of the anterior femur. This indicated a size 8 femur. The external rotation of the guide was adjusted to 3 degrees to match the epicondylar axis, perpendicular to Monica?s line. The 4-in-1 cutting guide was the placed. The posterior medial femur cut was evaluated and appeared of good thickness. The spacer block was inserted underneath the cutting guide and stability was confirmed in 90 degrees of flexion. An charli wing was used to confirm appropriate position of the anterior cut to avoid notching. This cutting guide was ensured to be flush on the cut surface and then pinned into place with headed pins. While protecting the soft tissues, quad tendon, and collateral ligaments, the anterior and posterior cuts were performed with a saw. The central two pins were removed and the posterior and anterior chamfers were cut next. The notch-cutting guide was placed. This was pinned to lateralize the femoral component as much as possible while keeping it flush on the cut surface. This was then pinned into position. A reciprocating saw was used to make the notch cut. A rasp smoothed the cut surfaces. The medial and lateral menisci were removed. A trial femoral component was then inserted, impacted down to the cut surfaces, and the lug holes were drilled. A provisional trial tibial component was placed and the knee was brought through range of motion. There was noted to be excellent extension and flexion. There was no significant instability. The patella was tracking without thumbs. A size 6mm polyethylene component provided the best range of motion and stability with less than 2mm gapping with medial and lateral stress and full extension without significant hyperextension. The tibial cut surface was fully exposed. The tibia was then sized as a 6. The tibia had been previously marked during trialing to correspond to the center of the tibial component to help with rotation. The trial was aligned to this jamarcus, approximately rotated to the medial 1/3rd of the tibial tubercle. The trial was pinned into place. The tibia was prepared with a reamer and a keel punch and lug holes. The knee was then brought into extension and the patella was measured as 29mm. Using the patellar clamp and cut guide, this was resected to a flat surface with at least 13mm of thickness remaining. The size 38 patella fit the best. This was oriented and then clamped into position. The lugs were drilled. The trial components were removed. The final components were opened on the back table. The periosteal and capsular tissues, especially posteriorly, around the knee were then systematically injected with a periarticular cocktail consisting of 50cc 0.25% Marcaine, 30mg Ketorolac, 20cc of Exparal and 50cc of injectable saline. The knee was thoroughly irrigated with a pulse lavage and dried. Irrisept was also used to irrigate the tissues. On the back table, with the implants opened, the cement was mixed. One batch of high viscosity cement was prepared with vacuum assistance. After the cement was ready a small amount was placed on the cut surface of the patella and the patellar button was clamped into position and held. While the cement was hardening, the cementless knee components were placed. Starting with the tibial component, the tibia was subluxed anteriorly and the lug holes of the component were lined up. The tibia was then impacted with an impactor and mallet until the tibial component was in contact with the tibia. The final polyethylene component was inserted. Then, the femoral component was inserted. The lug holes were aligned and the component was impacted into position. The knee was irrigated with Irrisept chlorhexadine solution. This was allowed to sit in the knee for 3 minutes. After the cement had finally cured, approximately 15min, the clamp was removed from the patella and the knee was taken through range of motion. The patella was tracking with a no-thumbs technique. The capsule was then reapproximated with a No. 1 Vicryl at multiple locations. The capsule was finally closed with a No. 2 Stratafix, barbed suture. The second dosing of 1g TXA was started. Deep tissues were then reapproximated with 0 Vicryl and 2-0 Vicryl. The skin was closed with a running 3-0 Monocryl in a subcuticular fashion. This was reinforced with skin glue. A Mepilex silver dressing was applied along with a [id number] ELVA wrap. A CryoCuff was applied. Krishan was transferred to the hospital bed without difficulty an suffering no apparent complication. Krishan has a good prognosis. Physical therapy will start today and without restrictions, weight-bearing as tolerated. Aspirin 81mg BID will be used for DVT prophylaxis.
--- NOTE | 2021-02-09 14:06 | IN_ITS ---
Date of service: 02/09/21 Time of Service: 14:06 PT Notes Visit Reasons: Right TKA Physical Therapy Day Surgery Initial Evaluation Date: 02/09/2021 Referring Doctor: NITIN Rivas PT Orders: PT CONSULT: Status post Ortho surgery Precautions: WBAT T on right LE with AD. Patient Profile/Admitting Diagnosis: Micky is a 55-year-old male with degenerative joint disease of the right knee and is status post right total knee arthroplasty on postoperative day 0. PMHX: Medical History (Updated 01/19/21 @ 12:09 by Charmaine Oliver RN) Abdominal pain Crohn's disease Depression Dyspnea on exertion History of pneumonia Joint pain Postprandial vomiting Prostate cancer Pulmonary nodule Raynaud's disease Sinus pain Smoker Syncope Vision changes Surgical History (Updated 01/19/21 @ 12:09 by Charmaine Oliver RN) Ileostomy status Social History/Home Situation: Lives alone in an apartment with a flight of steps to enter with rails on both sides. However, Krishan will be staying with his female friend's house for 2 to 4 weeks, she has 3 steps to enter with rails on both sides. Independent with all ADLs prior to surgery. 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 Equipment Owned/DME: None Subjective: Denies any pain in the right knee with no report of chest pain nor dizziness throughout session. Anxious to get out of the hospital as soon as he can. Objective: General Observation: Cryo/Cuff to right knee. ELVA wraps to right LE. TEDS to left leg. Tends to be compulsive about over performing to the point of being unsafe. Nurses Sandie and Leelee assisting during mobility performance for safety. IV access in R UE. Mental Status: Alert and oriented x 4 Pain: None reported ROM: Right Lower Extremity: Hip flexion WFL. Hip abduction WFL. Knee flexion 0-110 degrees further movement limited by ELVA wraps. Knee extensors 110degrees to 0 degrees. Ankle dorsiflexion WFL. Ankle plantarflexion WFL. Left Lower Extremity: Hip flexion WFL. Hip abduction WFL. Knee flexion WFL. Ankle dorsiflexion WFL. Ankle plantarflexion WFL. Strength: Right Lower Extremity: Hip flexors 5/5. Hip abductors 5/5. Knee flexors 3-/5. Knee extensors 4/5. Ankle dorsiflexors 5/5. Ankle plantarflexors 5/5. Left Lower Extremity:Hip flexors 5/5. Hip abductors 5/5. Knee flexors 5/5. Knee extensors 5/5. Ankle dorsiflexors 5/5. Ankle plantarflexors 5/5. Sensation: Reports feeling different (feels less) in the R leg and foot compared to the L side when light pressure was assessed Bed Mobility/Transfers: Supine to sit independent Sit to stand standby assist Stand to sit standby assist Bed to chair standby assist Gait: Guided patient through level surface ambulation of about 150 feet using bilateral axillary crutches with three-point gait pattern without report of pain in the right knee. Nurse Sandie providing wheelchair follow for safety. Stairs: Instructed patient in safe strategies for using bilateral axillary crutches on 6 x 6 inch steps using step to gait pattern requiring standby assist of a PT. Nurses Sandie and Leelee assisting for safety. No report of increased pain. Balance: Static Sitting: Normal Dynamic Sitting: Normal Static Standing: Good Dynamic Standing: Fair Special Tests: Mobility Limitations Standardized Measure [facility]-P[facility] 6 clicks Basic Mobility Inpatient Short Form: Raw Score: 23 CMS Score: 11% deficit Informed Consent/Education: Patient instructed in purpose of PT consult. Packet containing TKA exercise protocol has been given to patient. Education and training on initial set of exercises that can be done at home have been completed with patient. Assessment: Micky requires the use of bilateral axillary crutches for all mobility ADL performance in order to maximize independence and reduce fall risk at discharge destination. He will have the support of his female friend as he recovers at his friend's house. Krishan was advised about slowing down to reduce fall risk during mobility performance. Patient presents with clinical signs and symptoms consistent with current/admitting diagnoses that have resulted to mobility limitations as demonstrated by the following impairment level findings: 1. Decreased strength to left knee major muscle groups 2. Impaired standing balance 3. Limitation of joint range of motion in R knee Impairments are contributing to the following functional limitations: 1. Inability to safely ambulate without assistive device 2. Increase completion time for mobility ADL performance 3. Increased fall risk Patient is assessed as a [id number] moderate complexity based on the following: History: 55-year-old male with impairment level findings, functional limitations, and past medical history as indicated above Examination: Demonstrable impairment in strength, balance, and mobility level with underlying impairments and functional limitations as documented above Presentation: Evolving Decision Makin moderate complexity Goals: N/A. PT evaluation and 1-2 treatment sessions only for functional mobility training using recommended AD and for HEP instruction. Plan of Care/Treatment Plan: N/A. PT evaluation and 1-2 treatment session only for functional mobility training using recommended AD and for HEP instruction. DISCHARGE RECOMMENDATIONS: Home when medically cleared by orthopedic surgeon. Will benefit from the use of bilateral axillary crutches to ensure safe performance of mobility ADLs at discharge destination. Outpatient PT services to facilitate return to independent ADL performance without assistive device. TREATMENT CODE/TIME: 27132 x 25 minutes, 28836 x 23 minutes beginning at 14:06 PM. Thank you for the opportunity to participate in the care of this patient. Thank you for the opportunity to participate in the care of this patient. Marge Reed PT, DPT, CLT [facility] [place], [place]
== END 2021-02-09 15:13 | disposition home or self-care (01) ==
PROVIDERS: PCP Family Medicine; Visit Provider Student in an Organized Health Care Education/Training Program
PROC: (CPT 27447; principal; 2021-02-09 10:00)
DX: M17.11 Unilateral primary osteoarthritis, right knee (principal); Z96.651 Presence of right artificial knee joint; G89.18 Other acute postprocedural pain
CPT/HCPCS: 27447; 76942; 97162; 97530; J0690; J1100; J1885; J2250; J2405

== ENCOUNTER 2021-02-24 10:20 | Outpatient (CLI) | payer OTHER, SELFPAY ==
--- NOTE | 2021-02-24 10:00 | DI.RAD_ITS ---
EXAM: XR STANDING ALIGNMENT CLINICAL HISTORY: 1ST POST OP R TKA. TECHNIQUE: 2D digital imaging was performed. COMPARISON: CR XR STANDING ALIGNMENT from 01/17/2021 CR XR KNEE RT 1V from 02/24/2021 CR XR KNEE RT 1V from 02/24/2021 FINDINGS: Standing AP views were performed from the iliac crests through the ankles. The hip joint spaces are well maintained. There is no visible leg length this discrepancy at the level of the femoral heads. There is a total right knee prosthesis. Components appear satisfactorily aligned. There is some an terior soft tissue swelling. The left knee joint spaces are well maintained. pronation and is obse rved at the right ankle. IMPRESSION: Right knee prosthesis. No significant leg length discrepancy. DATA REPOSITORY: RADIATION DOSE DELIVERED:
== END 2021-02-24 10:21 | disposition home or self-care (01) ==
LOC: DIORS 10:21
PROVIDERS: PCP Family Medicine; Referring Provider Family Medicine; Visit Provider Physician Assistant Surgical
DX: Z96.651 Presence of right artificial knee joint (principal); Z47.1 Aftercare following joint replacement surgery
CPT/HCPCS: 73560; 77073

== ENCOUNTER → 2021-03-24 10:52 | Outpatient (BNVA) | payer OTHER, SELFPAY | PROVIDERS: PCP Family Medicine; Referring Provider Family Medicine; Visit Provider Physician Assistant Surgical | DX: Z47.1 Aftercare following joint replacement surgery (principal); Z96.651 Presence of right artificial knee joint ==

== ENCOUNTER 2021-03-30 03:07 | Outpatient (CLI) | payer OTHER, SELFPAY ==
--- NOTE | 2021-03-30 10:15 | DI.NM_ITS ---
Exam(s) NM BONE SCAN WHOLE BODY GRP EXAM: NM BONE SCAN WHOLE BODY GRP CLINICAL HISTORY: PROSTATE CA,C61,ABNL XR HIP,RECENT KNEE REPLACEMENT. TECHNIQUE: Injected Dose: 25 mCi Tc-99m MDP Delayed Images: 2-3 hours. COMPARISON: CT,NM,TMT NM MPI REST STRESS GRP from 12/09/2019 CR XR STANDING ALIGNMENT from 02/24/2021 CR XR KNEE RT 1V from 02/24/2021 FINDINGS: There is a photopenic zone in the right knee consistent with prosthesis. However, there is a abundan t abnormal radiopharmaceutical uptake seen at and below the tibial component and extending throughout the metaphysis of the proximal right tibia. Also abnormal uptake seen around the femoral component. In addition, there is some abnormal uptake seen in the midshaft of the ipsilateral-right femur. No a bnormal uptake seen in the ipsilateral hip. Also some abnormal increased uptake in the midshaft of t he femur and in region of the medial malleolus of the distal femur. There is no abnormal uptake seen in the ipsilateral-right foot. There is no abnormal uptake seen throughout the entire left lower extremity. Also no significant abn ormal uptake seen in the pelvis nor in the thoracic and cervical spines. Focal uptake seen in left s aileen of L5-S1 level may be degenerative. Urinary bladder lumen is noted deviated towards the right side. IMPRESSION: 1. Significant abnormal uptake seen in the right femur and right tibia as described above. Although this may be related to loosening related to the right knee prosthesis, cannot exclude possibility of infectious versus neoplastic. Recommend repeating plain films to compare to 03/06/2021 x-rays. Plai n film should be of the right femur, knee, tibia, and ankle. 2. Deviation of the bladder lumen towards the right side is noted. This may be related to an abnorm al mass in the urinary bladder, extrinsic compression by a pelvic mass, or possibly prostate patholog y. 3. DATA REPOSITORY:
== END 2021-03-30 03:08 | disposition home or self-care (01) ==
LOC: LBO 03:08
PROVIDERS: PCP Family Medicine; Visit Provider Nurse Practitioner
DX: C61 Malignant neoplasm of prostate (principal); N32.89 Other specified disorders of bladder; R93.7 Abnormal findings on diagnostic imaging of other parts of musculoskeletal system
CPT/HCPCS: 78306

== ENCOUNTER → 2021-04-11 14:12 | Outpatient (BNVA) | payer OTHER, SELFPAY | PROVIDERS: PCP Family Medicine; Referring Provider Family Medicine; Visit Provider Student in an Organized Health Care Education/Training Program | DX: Z47.1 Aftercare following joint replacement surgery (principal); Z96.651 Presence of right artificial knee joint; T84.82XD Fibrosis due to internal orthopedic prosthetic devices, implants and grafts, subsequent encounter ==

== ENCOUNTER 2021-04-15 02:22 | Outpatient (CLI) | payer OTHER, SELFPAY ==
[2021-04-15 11:15] LABS: Source Nasal/Nares
[2021-04-15 18:41] LABS: COVID-19 PCR Negative (Negative)
== END 2021-04-15 02:23 | disposition home or self-care (01) ==
LOC: LBO 02:22
PROVIDERS: PCP Family Medicine; Visit Provider Student in an Organized Health Care Education/Training Program
DX: Z20.822 Contact with and (suspected) exposure to COVID-19 (principal); Z01.818 Encounter for other preprocedural examination
CPT/HCPCS: 87635

== ENCOUNTER 2021-04-20 09:11 | Day surgery (SDC) | payer OTHER, SELFPAY ==
[2021-04-20] VITALS (7 sets, daily range): BP systolic 108–143; BP diastolic 56–97; PULSE 57–83; RESP 16–19; TEMP 36.2–36.7; O2SAT 96–100; BMI 18.3
--- NOTE | 2021-04-20 09:38 | W.ANESPRE ---
General Info Date of Service Date Performed: 04/20/21 Height: 6 ft 2 in Weight: 64.6 kg Body Mass Index (BMI): 18.3 Surgical Procedure: Operation Date: 04/20/21 10:55 Proposed Procedures Side Surgeon p Knee Manipulation of Knee Right Ector Irizarry MD Meds Allergies and Home Medications Allergies Allergy/AdvReac Type Severity Reaction Status Date / Time No Known Allergies Allergy Unverified 04/15/21 10:50 Home Medication Medication Instructions Recorded diphenoxylate-atropine 2.5 4 tab PO TID tab-cap 12/08/20 mg-0.025 mg tablet mecobalamin (vitamin B12) 10,000 1,000 mcg IV MONTHLY ea 01/17/21 mcg solution for injection albuterol sulfate 90 mcg/actuation 2 puff INHALATION Q4H PRN g 01/19/21 aerosol inhaler methadone 10 mg tablet 10 mg PO TID tab 01/19/21 Narcan 1 spray INTRANASAL Q3M 02/07/21 diclofenac sodium [Voltaren] 2 - 4 g TOPICAL QID 02/07/21 nicotine [Nicoderm CQ] 1 patch TRANSDERMAL DAILY 02/07/21 acetaminophen [Tylenol Extra 500 mg PO Q6H PRN #90 tab 02/09/21 Strength] aspirin 81 mg PO DAILY 03/23/21 hydrocodone-acetaminophen 2 tab PO Q8H PRN 03/23/21 nicotine (polacrilex) [Nicorette] 4 mg BUCCAL Q2H 03/23/21 ondansetron HCl [Zofran] 4 mg PO Q6H PRN 03/23/21 Current Visit Medications: Current Medications Generic Name Dose Route Start Last Admin Trade Name Freq PRN Reason Stop Dose Admin Ringer's Solution 1,000 mls @ 80 mls/hr 04/20/21 06:00 IV 05/19/21 23:59 INFUSION CLAUDIA IV Miscellaneous Supplies 1 each 04/20/21 06:00 Iv Access IV 05/19/21 23:59 DIRECTED CLAUDIA Sodium Chloride 0 ml 04/20/21 06:00 Normal Saline Flush 10 Ml Syr IV 05/19/21 23:59 PRN PRN Sodium Chloride 0 ml 04/20/21 06:00 Normal Saline 10 Ml Vial IJ 05/19/21 23:59 DIRECTED PRN Sterile Water 0 ml 04/20/21 06:00 Water,Injection,Sterile 10 Ml Vial IJ 05/19/21 23:59 DIRECTED PRN PFSH Active Problems Active Problems: Problem Status Onset Code Arthrofibrosis of total knee arthroplasty T84.82XA History of total right knee replacement 02/09/21 Z96.651 Internal derangement of right knee M23.91 Osteoarthritis of right knee M17.11 Vitamin B12 deficiency E53.8 Fatigue R53.83 Crohn's disease K50.90 Ileostomy status Z93.2 Syncope R55 Joint pain M25.50 Sinus pain J34.89 Vision changes H53.9 Abdominal pain R10.9 Smoker F17.200 Postprandial vomiting R11.10 Raynaud's disease I73.00 Depression F32.9 Dyspnea on exertion R06.00 Medical History Medical History Abdominal pain Bilateral thumb pain Breast lump Complaint of pain of toe Crohn's disease Depression Dyspnea on exertion Elevated PSA History of pneumonia Joint pain Other complications following infusion, transfusion and therapeutic injection, subsequent encounter Pain of knee joint on movement Paresthesia Postprandial vomiting Prostate cancer Pulmonary nodule Raynaud's disease RBBB Right knee pain RUQ pain Sinus pain Smoker Syncope Vision changes Surgical History Surgical History Cataract extraction status History of total right knee replacement (02/09/21) Ileostomy status Tobacco Smoking/Tobacco Use Status: Current every day Tobacco Type: cigarettes Tobacco: How many years used: 44 Alcohol Alcohol Intake: never Substance Use Substance use: Socially Substance use type: former substance user and marijuana Details: 3-4 months used marijuana Vital Signs and Lab Results Vital Signs Most Recent Vital Signs in EMR: Most Recent Vital Signs Temp Pulse Resp BP Pulse Ox 36.2 C L 83 18 124/72 96 04/20/21 09:34 04/20/21 09:34 04/20/21 09:34 04/20/21 09:34 04/20/21 09:34 Lab Results Blood Type / Crossmatch: No Data to Display Complete Blood Count: No Data to Display Complete Metabolic Panel: No Data to Display Liver Function Panel: No Data to Display Coagulation Panel: No Data to Display Cardiac Panel: No Data to Display Arterial Blood Gas: No Data to Display Venous Blood Gas: No Data to Display Pancreas Panel: No Data to Display Thyroid Panel: No Data to Display Infectious Disease: Coronavirus (COVID-19)(PCR) Negative (Negative) 04/15/21 10:32 04/15/21 Coronavirus 2019 Source Nasal/nares 04/15/21 10:32 04/15/21 Blood Cultures: No Data to Display Toxicology Panel: No Data to Display Imaging and Studies Imaging and Studies Stress Test Summary: Patient's ejection fraction was 45% with exercise. There were no wall motion abnormalities. No evidence of ischemia on the imaging portion of this exam This represents a normal SPECT stress test. Pulmonary Function Summary: Mild obstructive airways disease with no significant bronchodilator response. Clinical correlation recommended. Anesthesia Assessment and Plan Anesthesia History Personal History: No History of Anesthesia Complications Family History: No Family History of Anesthesia Complications Exercise Tolerance Exercise Tolerance: Metabolic Equivalents>4 Pertinent Negatives Pertinent Negatives: No Symptoms of GERD, No Major Cardiovascular Symptoms or Complaints (RBBB, ), No Major Pulmonary Symptoms or Complaints (+smoker 2-3 packs ) and No History of CVA/TIA Cardiac & Pulmonary Exam Cardiac Exam: Normal S1/S2 Heart Sounds Pulmonary Exam: Clear Bilateral Breath Sounds Airway Exam Known Difficult Airway: No Mallampati Class: 2 Mouth Opening: Normal (> 3cm) Thyromental Distance: Less than 3 cm Neck Range of Motion: Full ROM Neck Circumference: Normal Teeth Condition: Normal Dentition ASA Classification ASA Score: ASA 2 Emergency Case?: No NPO Status NPO Status: NPO Clears >2 hours, Solids >8 hours Anesthesia Plan Resuscitation Status: Full Code Anesthesia Technique: General Anesthesia Airway Planned: LMA Monitors Used: Standard Monitors
[2021-04-20] MEDS: Lactated Ringers 1,000 ML 80 ML IV (09:39)
--- NOTE | 2021-04-20 09:55 | W.ANESPRE ---
General Info Date of Service Date Performed: 04/20/21 Height: 6 ft 2 in Weight: 64.6 kg Body Mass Index (BMI): 18.3 Surgical Procedure: Operation Date: 04/20/21 10:55 Proposed Procedures Side Surgeon p Knee Manipulation of Knee Right Ector Irizarry MD Meds Allergies and Home Medications Allergies Allergy/AdvReac Type Severity Reaction Status Date / Time No Known Allergies Allergy Unverified 04/15/21 10:50 Home Medication Medication Instructions Recorded diphenoxylate-atropine 2.5 4 tab PO TID tab-cap 12/08/20 mg-0.025 mg tablet mecobalamin (vitamin B12) 10,000 1,000 mcg IV MONTHLY ea 01/17/21 mcg solution for injection albuterol sulfate 90 mcg/actuation 2 puff INHALATION Q4H PRN g 01/19/21 aerosol inhaler methadone 10 mg tablet 10 mg PO TID tab 01/19/21 Narcan 1 spray INTRANASAL Q3M 02/07/21 diclofenac sodium [Voltaren] 2 - 4 g TOPICAL QID 02/07/21 nicotine [Nicoderm CQ] 1 patch TRANSDERMAL DAILY 02/07/21 aspirin 81 mg PO DAILY 03/23/21 hydrocodone-acetaminophen 2 tab PO Q8H PRN 03/23/21 nicotine (polacrilex) [Nicorette] 4 mg BUCCAL Q2H 03/23/21 ondansetron HCl [Zofran] 4 mg PO Q6H PRN 03/23/21 acetaminophen 1,000 mg PO Q8H PRN PRN #90 cap 04/20/21 ibuprofen 600 mg PO TID PRN #30 tab 04/20/21 Current Visit Medications: Current Medications Generic Name Dose Route Start Last Admin Trade Name Freq PRN Reason Stop Dose Admin Ringer's Solution 1,000 mls @ 80 mls/hr 04/20/21 06:00 04/20/21 09:39 IV 05/19/21 23:59 80 mls/hr INFUSION CLAUDIA Administration IV Miscellaneous Supplies 1 each 04/20/21 06:00 Iv Access IV 05/19/21 23:59 DIRECTED CLAUDIA Sodium Chloride 0 ml 04/20/21 06:00 Normal Saline Flush 10 Ml Syr IV 05/19/21 23:59 PRN PRN Sodium Chloride 0 ml 04/20/21 06:00 Normal Saline 10 Ml Vial IJ 05/19/21 23:59 DIRECTED PRN Sterile Water 0 ml 04/20/21 06:00 Water,Injection,Sterile 10 Ml Vial IJ 05/19/21 23:59 DIRECTED PRN PFSH Active Problems Active Problems: Problem Status Onset Code Arthrofibrosis of total knee arthroplasty T84.82XA History of total right knee replacement 02/09/21 Z96.651 Internal derangement of right knee M23.91 Osteoarthritis of right knee M17.11 Vitamin B12 deficiency E53.8 Fatigue R53.83 Crohn's disease K50.90 Ileostomy status Z93.2 Syncope R55 Joint pain M25.50 Sinus pain J34.89 Vision changes H53.9 Abdominal pain R10.9 Smoker F17.200 Postprandial vomiting R11.10 Raynaud's disease I73.00 Depression F32.9 Dyspnea on exertion R06.00 Medical History Medical History (Updated 04/20/21 @ 09:57 by NITIN Salazar) Abdominal pain Bilateral thumb pain Breast lump Complaint of pain of toe Crohn's disease Depression Dyspnea on exertion Elevated PSA History of pneumonia Joint pain Other complications following infusion, transfusion and therapeutic injection, subsequent encounter Pain of knee joint on movement Paresthesia Postprandial vomiting Prostate cancer Pulmonary nodule Raynaud's disease RBBB Right knee pain RUQ pain Sinus pain Smoker Syncope Vision changes Surgical History Surgical History (Updated 04/20/21 @ 09:57 by NITIN Salazar) Arthrofibrosis of total knee arthroplasty RIGHT S/P Manipulation: 04/20/2021 Cataract extraction status History of total right knee replacement (02/09/21) Ileostomy status Tobacco Smoking/Tobacco Use Status: Current every day Tobacco Type: cigarettes Tobacco: How many years used: 44 Alcohol Alcohol Intake: never Substance Use Substance use: Socially Substance use type: former substance user and marijuana Details: 3-4 months used marijuana Vital Signs and Lab Results Vital Signs Most Recent Vital Signs in EMR: Most Recent Vital Signs Temp Pulse Resp BP Pulse Ox 36.2 C L 83 18 124/72 96 04/20/21 09:34 04/20/21 09:34 04/20/21 09:34 04/20/21 09:34 04/20/21 09:34 Lab Results Blood Type / Crossmatch: No Data to Display Complete Blood Count: No Data to Display Complete Metabolic Panel: No Data to Display Liver Function Panel: No Data to Display Coagulation Panel: No Data to Display Cardiac Panel: No Data to Display Arterial Blood Gas: No Data to Display Venous Blood Gas: No Data to Display Pancreas Panel: No Data to Display Thyroid Panel: No Data to Display Infectious Disease: Coronavirus (COVID-19)(PCR) Negative (Negative) 04/15/21 10:32 04/15/21 Coronavirus 2019 Source Nasal/nares 04/15/21 10:32 04/15/21 Blood Cultures: No Data to Display Toxicology Panel: No Data to Display Imaging and Studies Imaging and Studies Stress Test Summary: Patient's ejection fraction was 45% with exercise. There were no wall motion abnormalities. No evidence of ischemia on the imaging portion of this exam This represents a normal SPECT stress test. Anesthesia Assessment and Plan Anesthesia History Personal History: No History of Anesthesia Complications Family History: No Family History of Anesthesia Complications Exercise Tolerance Exercise Tolerance: Metabolic Equivalents>4 Pertinent Negatives Pertinent Negatives: No Symptoms of GERD, No Major Cardiovascular Symptoms or Complaints (RBBB), No Major Pulmonary Symptoms or Complaints (+smoker albuterol prn ) and No History of CVA/TIA Cardiac & Pulmonary Exam Cardiac Exam: Normal S1/S2 Heart Sounds Pulmonary Exam: Clear Bilateral Breath Sounds Airway Exam Known Difficult Airway: No Mallampati Class: 2 Mouth Opening: Normal (> 3cm) Thyromental Distance: Less than 3 cm Neck Range of Motion: Full ROM Neck Circumference: Normal Teeth Condition: Normal Dentition ASA Classification ASA Score: ASA 2 Emergency Case?: No NPO Status NPO Status: NPO Clears >2 hours, Solids >8 hours Anesthesia Plan Resuscitation Status: Full Code Anesthesia Technique: General Anesthesia Airway Planned: LMA Monitors Used: Standard Monitors
--- NOTE | 2021-04-20 09:56 | W.PM.DSUDISC ---
Discharge Plan Disposition Patient Disposition: HOME Condition: Good Discharge Details Reason For Visit: (R) KNEE ARTHROFIBROSIS Attending Provider: Ector Irizarry Primary Care Provider: Natty Mckinney V Home Meds and New Rx's Prescriptions: New acetaminophen 500 mg capsule 1,000 mg PO Q8H PRN PRNQty: 90 RF: 0 ibuprofen 600 mg tablet 600 mg PO TID PRN (Reason: pain) Qty: 30 RF: 0 Continued mecobalamin (vitamin B12) 10,000 mcg recon soln 1,000 mcg IV MONTHLY RF: 0 ondansetron HCl [Zofran] 4 mg Tablet 4 mg PO Q6H PRNRF: 0 hydrocodone-acetaminophen 10-325 mg Tablet 2 tab PO Q8H PRNRF: 0 nicotine (polacrilex) [Nicorette] 4 mg Gum 4 mg BUCCAL Q2H RF: 0 aspirin 81 mg tablet,delayed release (DR/EC) 81 mg PO DAILY RF: 0 diphenoxylate-atropine [Lomotil] 2.5-0.025 mg tablet 4 tab PO TID RF: 0 methadone [Dolophine] 10 mg tablet 10 mg PO TID RF: 0 albuterol sulfate [Ventolin HFA] 90 mcg/actuation HFA aerosol inhaler 2 puff inhalation Q4H PRNRF: 0 nicotine [Nicoderm CQ] 14 mg/24 hr Patch 24 Hour 1 patch TRANSDERMAL DAILY RF: 0 diclofenac sodium [Voltaren] 1 % Gel 2 - 4 g TOPICAL QID RF: 0 Narcan 4 mg/actuation [place],Non-Aerosol 1 spray INTRANASAL Q3M RF: 0 Discontinued acetaminophen [Tylenol Extra Strength] 500 mg tablet 500 mg PO Q6H PRNQty: 90 RF: 0 Discharge Instructions Additional Instructions: Knee Manipulation Discharge Instructions Activity: You should begin moving as soon as possible. You may work on flexion but also equally maintain extension. You may bear weight as tolerated, using crutches only for support/comfort. You should apply ice to help with swelling and elevate when possible (especially in the first few days). Dressings: The knee dressing may come down after 48 hours. You may shower and get the wound wet at that time. You should keep the wounds covered with a bandaid until follow-up. Medications: - Rarely does this require any stronger pain medications. - Recommend to take up to 1000mg of Acetaminophen (Tylenol) and 600mg of Ibuprofen (Advil) every 8 hours as needed. These larger strength tablets were called in but you also may use [id number]. Follow-up: 7-10 days Referrals: Ector Irizarry MD [ [facility] STAFF PHYSICIAN] - Equipment/Supplies: Partial Weight Bearing Crutches Activity:: Activity as Tolerated Diet:: As Tolerated Discharge Orders Discharge Orders: Discharge Order (Routine); Ordered 04/20/21 Ordered By: Jt Pritchard DS: Diagnosis Discharge Diagnosis (1) Arthrofibrosis of total knee arthroplasty: Status: Acute (2) History of total right knee replacement: Status: Acute
[2021-04-20] MEDS: Bupivacaine 0.5% Pres-Free 30 ML VIAL (10:16)
--- NOTE | 2021-04-20 10:55 | ROE_ITS ---
Date of service: 04/20/21 Time of Service: 10:16 Operative Note Operative Note DATE OF PROCEDURE: 04/20/21 PRE-OP DIAGNOSIS: Right Knee Arthrofibrosis s/p Replacement POST-OP DIAGNOSIS: same PROCEDURE: Right Knee Manipulation Under Anesthesia SURGEON: Ector Irizarry ANESTHESIA TYPE: General LMA/ETT Refer to Anesthesia Record ESTIMATED BLOOD LOSS: 0 PATHOLOGY: none sent TOURNIQUET TIME: 0 COMPLICATIONS: None Patient was transported to: PACU Patient's condition: stable Indications: Krishan is a 55yo male who is s/p knee replacement. Despite diligent work with physical therapy there has been continued stiffness. To assist with mobility, I offered a manipulation under anesthesia. I discussed the risks of the procedure to include bleeding, pain, recurrent stiffness, fracture. Despite these risks, he elects to proceed. Findings: Preoperative flexion = 100 Postoperative flexion = 135 Preoperative extension = 3 Postoperative extension = 0 Procedure Description: The patient is agreed in the preoperative holding area. Identity was confirmed and the correct side was identified and marked. The consent was reviewed the patient and signed. History and physical was updated. Krishan was taken back to the operating room. The right side was identified as the correct side. A timeout was performed for safe surgery. A general anesthetic was administered. The knee was then prepped with ChloraPrep and an intra-articular injection of 10 cc of 0.5% bupivacaine was administered. Once a muscle relaxant was fully on board manipulation was performed. Pre- manipulation range of motion was noted. A gentle manipulation was performed first into flexion using a very small lever arm and adding gentle and progressive pressure to the tibia. There is audible and palpable crepitus with improvement in range of motion. This was cycled and repeated multiple times. The leg was then brought into extension and gentle anterior posterior pressure was applied with a supported hand behind the proximal tibia and knee. This was brought back into flexion was once again manipulated with gentle and progressive pressure. Final range of motion numbers were recorded. A Band-Aid was applied to the injection site. Krishan was awakened from anesthesia and taken to the PACU in stable condition.
--- NOTE | 2021-04-20 11:19 | W.ANESPOSTOP ---
Postoperative Evaluation Date, Time and Location Date Performed: 04/20/21 Time Performed: 11:19 Patient Location: Day Surgery Unit Vital Signs Most Recent Imported Vital Signs: Most Recent Vital Signs Temp Pulse Resp BP Pulse Ox 36.4 C L 72 17 108/56 L 100 04/20/21 10:59 04/20/21 10:59 04/20/21 10:59 04/20/21 10:59 04/20/21 10:59 Pain Score Most Recent Pain Score: Most Recent Pain Score Pain Level 0 04/20/21 10:59 Assessment Mental Status: Awake (Alert & Oriented to Patient Baseline) Airway and Respiratory Function: Patent airway with normal (patient baseline) respiratory exam Cardiovascular Function: Hemodynamically Stable Hydration Status: Adequately Hydrated Nausea & Vomiting: No Nausea or Vomiting Pain: Pt. Denies Any Pain Peripheral Nerve Block: Patient did not receive a nerve block
== END 2021-04-20 11:45 | disposition home or self-care (01) ==
PROVIDERS: PCP Family Medicine; Visit Provider Student in an Organized Health Care Education/Training Program
PROC: (CPT 27570; principal; 2021-04-20 10:45)
DX: T84.82XA Fibrosis due to internal orthopedic prosthetic devices, implants and grafts, initial encounter (principal); Z96.651 Presence of right artificial knee joint; F17.210 Nicotine dependence, cigarettes, uncomplicated; I45.10 Unspecified right bundle-branch block
CPT/HCPCS: 27570; J1100; J2001; J2405; J2704

== ENCOUNTER → 2021-04-29 09:44 | Outpatient (BNVA) | payer OTHER, SELFPAY | PROVIDERS: PCP Family Medicine; Referring Provider Family Medicine; Visit Provider Physician Assistant | DX: Z47.89 Encounter for other orthopedic aftercare (principal); T84.82XD Fibrosis due to internal orthopedic prosthetic devices, implants and grafts, subsequent encounter ==

== ENCOUNTER 2021-06-07 14:59 | Outpatient (REF) | payer OTHER, SELFPAY ==
[2021-06-07 20:06] LABS: HCT 39.9 % (40.0-50.0); HGB 12.6 g/dL (13.5-17.5); MCH 29.6 pg (27.0-33.0); MCHC 31.6 % (32.0-36.0); MCV 93.9 fL (80-95); MPV 10.9 fL (8.0-11.0); Platelet Count 346 10^3/uL (130-400); RBC 4.25 10^6/uL (4.36-5.78); RDW 13.5 % (11.8-14.1); RDW-SD 46.6 fL; WBC 10.14 10^3/uL (4.4-10.8)
[2021-06-07 20:15] LABS: ESR 39 mm/hr (0-20)
[2021-06-07 23:55] LABS: ALT 25 U/L (16-63); AST 15 U/L (15-37); Albumin 4.3 g/dL (3.4-5.0); Alkaline Phosphatase 242 U/L (46-116); Anion Gap 8.3 mmol/L (3-11); BUN 13 mg/dL (7-18); Bilirubin, Total 0.3 mg/dL (0.2-1.0); C-Reactive Protein 0.89 mg/dL (0.0-0.3); CO2 27.7 mmol/L (21.0-32.0); Calcium 9.8 mg/dL (8.5-10.1); Chloride 103 mmol/L (98-107); Glucose 73 mg/dL (74-106); Potassium 4.8 mmol/L (3.5-5.1); Sodium 139 mmol/L (136-145); TSH (W/Ref FT4) 3.35 uIU/mL (0.36-3.74); Total Protein 7.2 g/dL (6.4-8.2)
[2021-06-08 18:16] LABS: PSA, Diagnostic 1.7 ng/mL (0.0-3.5)
== END 2021-06-07 15:00 | disposition home or self-care (01) ==
LOC: NCHCN 14:59
PROVIDERS: PCP Family Medicine; Visit Provider Family Medicine
DX: R63.4 Abnormal weight loss (principal)
CPT/HCPCS: 80053; 85027; 85652; 84153; 84443; 86140

== ENCOUNTER 2021-06-14 02:24 | Outpatient (CLI) | payer OTHER, SELFPAY ==
--- NOTE | 2021-06-14 | DI.CTLCSR_ITS ---
Exam(s) CT CHEST LUNG CANCER SCREEN EXAM: CT CHEST LUNG CANCER SCREEN CLINICAL HISTORY: SCREENING FOR LUNG CA, SMOKER, F17.210 TECHNIQUE: Imaging Protocol: Axial computed tomography images with coronal and sagittal reformatted images were created and reviewed COMPARISON: CT CT CHEST W from 05/05/2019 FINDINGS: Tracheobronchial tree: Patent where visualized. Pulmonary parenchyma: No consolidation or dominant measurable mass. No architectural distortion. Lung Nodules: There is a 3 mm left upper lobe pulmonary nodule. Mediastinum and Claudia: No dominant adenopathy or fluid collection. Pleura: No effusion or pneumothorax. Heart: The heart is not dilated. Mild coronary artery calcification. No pericardial effusion. Aorta: Thoracic aorta non-dilated.Mild atherosclerosis. Upper abdomen: 3 mm nonobstructing right renal calculus. Soft Tissues: Unremarkable. Bones: Within normal limits. IMPRESSION: 3 mm left upper lobe pulmonary nodule. Lung RADS Cat 2 - Benign Appearance / Behavior: Nodules with a very low likelihood of becoming a clin ically active cancer due to size or lack of growth Lung-RADS 1.0 CATEGORIES: Category 0 - Prior chest CT exam(s) being located for comparison. Category 1 - Annual screening in 12 months. No nodules or definitely benign nodules. Category 2 - Annual screening in 12 months. Benign appearance. Nodules with low likelihood of becomin g active cancer. Category 3 - 6-month follow-up. Probably benign. Short-term follow-up suggested. Nodules with low lik elihood of becoming active cancer. Category 4A - 3-month follow-up and CT/PET if >8 mm in size. Suspicious finding. Findings which requi re additional testing. Category 4B - Findings which require additional testing and tissue sampling. Suspicious finding. Modifier S- Potentially clinically significant finding. (Non lung cancer) RADIATION DOSE DELIVERED: 87.09mGy.cm Total DLP 1.84mGy CTDIvol 87.09mGy.cm Total DLP 1.84mGy CTDIvol DATA REPOSITORY: All CT scans at this facility are submitted to the National Radiology Data Registry (NRDR) Dose Index Registry (DIR) with the [employer] (ACR). RADIATION OPTIMIZATION: All CT scans at this facility use at least one of these dose optimization te chniques: automated exposure control; mA and/or kV adjustment per patient size (includes targeted exa ms where dose is matched to clinical indication); or iterative reconstruction.
== END 2021-06-14 02:44 ==
PROVIDERS: PCP Family Medicine; Visit Provider Family Medicine
DX: Z12.2 Encounter for screening for malignant neoplasm of respiratory organs (principal); R91.1 Solitary pulmonary nodule; R63.4 Abnormal weight loss; F17.200 Nicotine dependence, unspecified, uncomplicated
CPT/HCPCS: 71271

== ENCOUNTER 2021-09-14 04:35 | Outpatient (CLI) | payer MEDICARE, SELFPAY ==
[2021-09-16 14:47] LABS: PSA, Ultrasensitive 3.7 ng/mL (<= 3.5)
[2021-09-20 10:07] LABS: Testosterone, Total 337 ng/dL (240-950)
== END 2021-09-14 04:36 | disposition home or self-care (01) ==
LOC: LBO 04:35
PROVIDERS: PCP Family Medicine; Visit Provider Nurse Practitioner
DX: C61 Malignant neoplasm of prostate (principal)
CPT/HCPCS: 36415; 84153; 84403

== ENCOUNTER 2021-10-27 20:00 | Outpatient (REF) | payer MEDICARE, SELFPAY ==
[2021-10-31 15:25] LABS: Chlamydia Result Negative (Negative); GC Result Negative (Negative)
== END 2021-10-27 20:01 | disposition home or self-care (01) ==
LOC: NCHCN 20:00
PROVIDERS: PCP Family Medicine; Visit Provider Family Medicine
DX: R31.9 Hematuria, unspecified (principal); Z11.3 Encounter for screening for infections with a predominantly sexual mode of transmission; Z72.51 High risk heterosexual behavior
CPT/HCPCS: 87491; 87591

== ENCOUNTER → 2021-11-07 14:14 | Outpatient (BNVA) | payer MEDICARE, SELFPAY | PROVIDERS: PCP Family Medicine; Referring Provider Family Medicine; Visit Provider Urology | DX: R31.0 Gross hematuria (principal); C61 Malignant neoplasm of prostate; Z93.2 Ileostomy status; F17.210 Nicotine dependence, cigarettes, uncomplicated; Z92.3 Personal history of irradiation; J44.9 Chronic obstructive pulmonary disease, unspecified | CPT/HCPCS: 99215 ==

== ENCOUNTER 2022-01-27 10:34 | Outpatient (CLI) | payer MEDICARE, SELFPAY ==
--- NOTE | 2022-01-27 10:00 | DI.RAD_ITS ---
Exam(s) XR ELBOW RT COMPLETE EXAM: XR ELBOW RT COMPLETE CLINICAL HISTORY: pain. TECHNIQUE: 2D digital imaging was performed. COMPARISON: No exams were available for comparison FINDINGS: Three views of the right elbow reveal no evidence of fracture nor joint effusion. No swelling of the olecranon bursa. Radial head appears unremarkable. Capitellum unremarkable. Epicondyles unremarka ble. No osseous lesions. Bone density normal. Degenerative changes IMPRESSION: No significant radiograph findings in the right elbow DATA REPOSITORY: RADIATION DOSE DELIVERED:
== END 2022-01-27 10:35 | disposition home or self-care (01) ==
LOC: DIORS 10:34
PROVIDERS: PCP Family Medicine; Referring Provider Family Medicine; Visit Provider Student in an Organized Health Care Education/Training Program
DX: M25.831 Other specified joint disorders, right wrist; M25.832 Other specified joint disorders, left wrist; M25.521 Pain in right elbow; M25.522 Pain in left elbow; M18.9 Osteoarthritis of first carpometacarpal joint, unspecified
CPT/HCPCS: 99214; 73080

== ENCOUNTER 2022-02-13 01:09 | Outpatient (CLI) | payer MEDICARE, SELFPAY ==
--- NOTE | 2022-02-13 | DI.RAD_ITS ---
Exam(s) XR CERVICAL SPINE COMP 4-5V EXAM: XR CERVICAL SPINE COMP 4-5V CLINICAL HISTORY: NECK PAIN, M54.2. TECHNIQUE: 2D digital imaging was performed. COMPARISON: No exams were available for comparison FINDINGS: BONES: No fracture or destructive lesion. Vertebral bodies are unremarkable. Facet degenerative leslie nges are seen greatest at C2-3 and C7-T1. [id number] neural foraminal narrowing on the left at C3-4, C5-6 and C6-7. Neural foraminal narrowing on the right at C greatest at C3-4. Mild narrowing seen at C 5 6 and C6-7. DISKS: Moderate narrowing of the C5-6 and C6-7 disc spaces. Endplate osteophyte formation. ALIGNMENT: Cervical spinal alignment is within normal limits. The odontoid and atlantoaxial articulat ions are normal. SOFT TISSUE: Normal. The lung apices are clear. IMPRESSION: Degenerative disc changes and facet degenerative changes cause bilateral neural foraminal narrowing. DATA REPOSITORY: RADIATION DOSE DELIVERED:
== END 2022-02-13 01:29 ==
LOC: DI 01:10
PROVIDERS: PCP Family Medicine; Visit Provider Family Medicine
DX: M50.322 Other cervical disc degeneration at C5-C6 level; M50.323 Other cervical disc degeneration at C6-C7 level; M47.813 Spondylosis without myelopathy or radiculopathy, cervicothoracic region
CPT/HCPCS: 72050

== ENCOUNTER 2022-03-02 01:17 | Outpatient (CLI) | payer MEDICARE, SELFPAY ==
--- NOTE | 2022-03-02 10:00 | DI.MRI_ITS ---
Exam(s) MR CERVICAL SPINE WO EXAM: MR CERVICAL SPINE WO CLINICAL HISTORY: NECK PAIN, M54.2; RADICULOPATHY AFFECTING THE ARM, M54.12 TECHNIQUE: Multiplanar multisequence MRI was performed. COMPARISON: No exams were available for comparison FINDINGS: MR examination cervical spine was performed according to the usual protocol. Posterior fossa structur es appear intact. Note is made of mild Dara discal vertebral signal changes at C5-6 and C6-7 consistent with disc degen eration and there is mild loss of disc height at these levels. Spinal cord is of normal diameter and shows normal signal throughout. No significant findings at C2-3 level, no evidence of central canal spinal stenosis, disc herniation, or neural foraminal stenosis. At C 3 4, there appears to be mild right-sided neural foraminal narrowing. No disc herniation or sai tral canal spinal stenosis. At C4-5, there is some prominence of the disc osteophyte complex without evidence of a discrete disc herniation. No central canal spinal stenosis. Probable mild bilateral neural foraminal stenosis. At C5-6, there is prominence of the disc osteophyte complex which somewhat narrows the left lateral r ecess. Both neural foramina are narrowed at this level. No gross central canal spinal stenosis. At C6-7, there is prominence of the disc osteophyte complex without focal disc herniation. Bilateral neural foraminal narrowing noted. No central canal spinal stenosis. IMPRESSION: Multilevel neural foraminal stenosis as described above. Please see above discussion for findings at individual levels. Node focal disc herniation seen, no spinal cord abnormality identified.. DATA REPOSITORY:
== END 2022-03-02 01:37 ==
LOC: DI 01:17
PROVIDERS: PCP Family Medicine; Visit Provider Family Medicine
DX: M54.2 Cervicalgia (principal); M54.12 Radiculopathy, cervical region
CPT/HCPCS: 99212; 72141

== ENCOUNTER 2022-03-02 13:35 | Outpatient (CLI) | payer MEDICARE, SELFPAY ==
--- NOTE | 2022-03-02 11:45 | DI.RAD_ITS ---
Exam(s) XR KNEE RT 2V AP,LAT EXAM: XR KNEE RT 2V AP,LAT CLINICAL HISTORY: R TKA TECHNIQUE: COMPARISON: CR XR KNEE RT 1V from 02/24/2021 FINDINGS: Two views were obtained and show total knee joint replacement in position. The components appear wel l seated. No other significant bony abnormality seen. IMPRESSION: RADIATION DOSE DELIVERED: Total DLP
== END 2022-03-02 13:36 | disposition home or self-care (01) ==
LOC: DIORS 13:35
PROVIDERS: PCP Family Medicine; Referring Provider Family Medicine; Visit Provider Physician Assistant
DX: Z96.651 Presence of right artificial knee joint (principal); Z47.1 Aftercare following joint replacement surgery
CPT/HCPCS: 99212; 73560

== ENCOUNTER 2022-09-18 03:29 | Outpatient (CLI) | payer MEDICARE, SELFPAY ==
[2022-09-18 11:11] LABS: HCT 43.8 % (40.0-50.0); HGB 14.4 g/dL (13.5-17.5); MCH 31.7 pg (27.0-33.0); MCHC 32.9 % (32.0-36.0); MCV 97 fL (80-95); MPV 10.6 fL (8.0-11.0); Platelet Count 264 10^3/uL (130-400); RBC 4.54 10^6/uL (4.36-5.78); RDW 12.3 % (11.8-14.1); RDW-SD 43.4 fL; WBC 11.78 10^3/uL (4.4-10.8)
[2022-09-18 11:13] LABS: ESR 1 mm/hr (0-20)
[2022-09-18 12:08] LABS: ALT 140 U/L (16-63); AST 69 U/L (15-37); Albumin 3.9 g/dL (3.4-5.0); Alkaline Phosphatase 147 U/L (46-116); Anion Gap 7.3 mmol/L (3-11); BUN 12 mg/dL (7-18); Bilirubin, Total 0.5 mg/dL (0.2-1.0); CO2 29.7 mmol/L (21.0-32.0); CREATININE 1.1 mg/dL (0.70-1.30); Chloride 103 mmol/L (98-107); Estimated GFR 77.81 (mL/min/1.73m2); Ferritin 99 ng/mL (26-388); Folate 14.9 ng/mL (8.6-20.0); Glucose 113 mg/dL (74-106); Potassium 4.2 mmol/L (3.5-5.1); Sodium 140 mmol/L (136-145); TSH 1.04 uIU/mL (0.36-3.74); Total Protein 6.7 g/dL (6.4-8.2); Vitamin B12 421 pg/mL (193-986)
[2022-09-18 12:10] LABS: C-Reactive Protein < 0.05 mg/dL (0.0-0.3)
[2022-09-18 12:22] LABS: Iron 96 ug/dL (65-175); Total Iron Binding Capacity 378 ug/dL (250-450); Transferrin Sat 25 % (20-55)
[2022-09-18 12:26] LABS: FREE T4 1.01 ng/dL (0.76-1.46)
[2022-09-19 18:16] LABS: T3,Free 3.3 pg/mL (2.8-5.3)
[2022-09-19 20:01] LABS: PSA, Diagnostic 1.1 ng/mL (<=3.5)
== END 2022-09-18 03:30 | disposition home or self-care (01) ==
LOC: LBO 03:29
PROVIDERS: PCP Family Medicine; Visit Provider Family Medicine
DX: R53.83 Other fatigue (principal); R10.2 Pelvic and perineal pain; M25.50 Pain in unspecified joint; R97.20 Elevated prostate specific antigen [PSA]; C61 Malignant neoplasm of prostate; E53.8 Deficiency of other specified B group vitamins; R63.4 Abnormal weight loss; D64.9 Anemia, unspecified
CPT/HCPCS: 36415; 80053; 85027; 85652; 82607; 82728; 82746; 83540; 83550; 84153; 84439; 84443; 84481; 86140

== ENCOUNTER 2022-09-22 00:40 | Outpatient (CLI) | payer MEDICARE, SELFPAY ==
--- NOTE | 2022-09-22 | DI.CT_ITS ---
Exam(s) CT ABDOMEN PELVIS W EXAM: CT ABDOMEN PELVIS W CLINICAL HISTORY: FATIGUE,R53.83,H/O ,PROSTATE CA,C61,INCREASING PAIN,. TECHNIQUE: Imaging Protocol: Axial computed tomography images with coronal and sagittal reformatted images were created and reviewed CONTRAST MATERIAL: Intravenous: Omnipaque 100cc Oral: Yes COMPARISON: CT CT ABDOMEN PELVIS W from 02/03/2021 FINDINGS: VISUALIZED LUNG BASES: No nodules nor pleural effusions evident. ABDOMEN: There is no ascites. LIVER: There are no focal hepatic lesions evident. No dilated intrahepatic ducts. GALLBLADDER/BILIARY: Again noted is suggestion of some mild edema of the gallbladder wall. No obviou s calcified gallstones noted. CBD diameter is upper normal. PANCREAS: No evidence of pancreatic mass nor dilatation of the pancreatic duct. SPLEEN: Spleen is not enlarged. No obvious intrasplenic lesions. Splenic and portal veins are paten t. ADRENALS: There are no significant adrenal masses. KIDNEYS:No cysts evident. No solid renal masses. No calculi nor hydronephrosis.. ABDOMINAL AORTA: Abdominal aorta is not enlarged. LYMPH NODES:There is no retroperitoneal nor paraaortic adenopathy. ABDOMINAL WALL: Right sided ileostomy is again noted. There has been prior colectomy. There is no b owel obstruction. GI: There is no evidence of bowel obstruction, free air, nor abscess. PELVIS: GI: No appendix. Surgically absent. LYMPH NODES: There is no intrapelvic nor inguinal adenopathy. REPRODUCTIVE: Seeds in the region of the prostate are again noted. 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 The previously described sclerotic bone density in the left iliac bone is again noted, measuring 14 b y 9 millimeters perhaps minimally more prominent on the previous study. There are unchanged small de nsities in the right iliac bone again noted which remain unchanged. IMPRESSION: 1. Mild gallbladder wall edema. No obvious radiopaque gallstones. Recommend follow-up ultrasound. 2. Previous colectomy with right-sided ileostomy. No bowel obstruction, free air, abscess, nor ascit es. 3. Very slight increase in the size of the sclerotic bone lesion in the left iliac bone 4. No adenopathy in the abdomen and pelvis evident. RADIATION DOSE DELIVERED: 915.98mGy.cm Total DLP DATA REPOSITORY: All CT scans at this facility are submitted to the National Radiology Data Registry (NRDR) Dose Index Registry (DIR) with the [employer] (ACR). RADIATION OPTIMIZATION: All CT scans at this facility use at least one of these dose optimization te chniques: automated exposure control; mA and/or kV adjustment per patient size (includes targeted exa ms where dose is matched to clinical indication); or iterative reconstruction.
--- OUTSIDE RECORDS SUMMARY | 2022-09-22 00:41 | XMS_ITS | Encounter Summary ---
:1965 Author Organization [facility] [place] [address] Care Team Providers Name Role Phone Natty Mckinney MD Primary Care Provider Encounter Details Date Type Department Care Team Description 01/17/2022 Ext Surgery or [facility] Cornelius Sandoval Dy spnea, unspecified Single Event Hospital MD type [address] [facility] [place], [place], [place] [phone] Social History Tobacco Use Types Packs/Day Years Used Date Current Every Day Smoker 1.5 Smokeless Tobacco: Never Used Comments: rolls own cigarette. started s moking 14 yrs old Alcohol Use Standard Drinks/Week Comments Yes 0 (1 standard drink = 0.6 oz pure alcoho l) 1 beer a month Alcohol Habits Answer Date Recorded How often do you have a drink containing alcohol? Not asked How many drinks containing alcohol do you have on a Not aske d typical day when you are drinking? How often do you have six or more drinks on one Not asked occasion? Comment: 1 beer a month 12/22/2019 Sex Assigned at Date Recorded Not on file documented as of this encounter Plan of Treatment Upcoming Encounters Date Type Specialty Care Team Description 09/28/2022 Office Visit Radiation Oncology Natty Lawton, ANCH[employer] TACKER [facility] RAD[facility] [place], [place] [address] (Wo rk) documented as of this encounter Procedures Procedure Name Priority Date/Time Associated Diagnosis Comme nts STRESS TEST SCAN 01/17/2022 12:00 AM Resu lts for this EST procedure are i n the results section. ECG SCAN 01/17/2022 12:00 AM Results for this EST procedure are i n the results section. documented in this encounter Results SCAN DOC: STRESS TEST (01/17/2022 12:00 AM EST) Narrative This result has an attachment that is no t available. Unknown MEDIA MGR SCAN EXT ORDR/RSLT SCAN DOC: ECG (01/17/2022 12:00 AM EST) Narrative This result has an attachment that is no t available. Unknown MEDIA MGR SCAN EXT ORDR/RSLT documented in this encounter Visit Diagnoses Diagnosis Dyspnea, unspecified type documented in this encounter Care Teams Grooving Lathe Tender Relationship Specialty Start Date End Date Natty Mckinney MD PCP - General 10/11/10 [address] [place] [address] documented as of this encounter
--- OUTSIDE RECORDS SUMMARY | 2022-09-22 00:41 | XMS_ITS | Encounter Summary ---
:1965 Author Organization [facility] [place] [address] Care Team Providers Name Role Phone Natty Mckinney MD Primary Care Provider Reason for Visit Reason Comments Establish Care B OA of CMC joint Consultation (Routine) - Authorized Specialty Diagnoses / Procedures Referred By Contact Refer red To Contact Orthopaedics Diagnoses Osteoarthritis of carpometacarpal (CMC) joint of thumb, unspecified laterality, unspecified osteoarthritis type Ulnar abutment syndrome of both wrists Ector Irizarry MD Warhold, Lance G, MD [address] [place], [place] [address] [place] [address] Phone: Fax: Referral ID Status Reason Start Expiration Visits Visits Date Date Requested Authorized [id number] Authorized Consult, 02/08/2022 02/08/2023 6 6 Test & Treat PCP Updated and/or Approved Encounter Details Date Type Department Care Team Description 03/22/2022 Office Visit Orthopaedics at [facility] Willie Rivas Primary osteoarthritis [facility] MD Leonardo of both [facility] carpometacarpal joints [place], [place] CENTER [address] ORTHOPAEDIC [phone] [place] [address] Social History Tobacco Use Types Packs/Day Years [...] on file documented as of this encounter Last Filed Vital Signs Vital Sign Reading Time Taken Comments Blood Pressure 110/63 03/22/2022 1:26 PM EDT Pulse - - Temperature - - Respiratory Rate - - Oxygen Saturation - - Inhaled Oxygen Concentration - - Weight 66.7 kg (147 lb) 03/22/2022 1:26 PM EDT Height - - Body Mass Index 19.39 09/03/2020 8:54 AM EDT documented in this encounter Progress Notes Willie Rivas MD - 03/22/2022 1:15 PM EDT Krishan Monte is a 56-year-old male who is seeing me for bilateral thumb base pain. He was referred for this consultation by Ector Irizarry MD. He is disabled by Crohn's disease and takes care ofhis own ostomy. 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 He has had many years of bilateral thumb base pain. He reports that Dr. Irizarry told him that he needs surgery for this and declined consideration of corticosteroid injection for this. There was no antecedent trauma that caused this. He notes that the pain is substantial but he still is able to function and work through his pain. He has been using Voltaren gel and warm water soaks to help with his pain. He has had a trial of corticosteroid injection done by another provider without fluoroscopic guidance and he got no relief of his symptoms. His past medical history includes Crohn's disease, and history of prostate cancer. He reports that he has been smoking since he was 10 years old [facility] Examination reveals a pleasant alert male in no apparent distress. He does smell of tobacco. He has tenderness to palpation over his right pisotriquetral joint. His digits are sensate and well perfusedbilaterally. He also has tenderness over both thumb CMC joints, more on the left than on the right. There is a subtle amount of crepitus with compression of the left thumb CMC joint. He has no dermatologic lesions. There is no significant joint swelling in his hands. His most recent hand x-rays were reviewed from [facility] and were done on 10/07/2020. These show bilateral basal joint arthritis. These were personally reviewed by me today. Assessment: Bilateral thumb basal joint arthritis Plan. I suggested that he consider corticosteroid injection into his basal joints under fluoroscopicguidance as his next step. He has had this done only without imaging. He is not sure if he wishes todo this but if he does he would like to have this done closer to home. I will send a copy of this note to Dr. Irizarry so he can schedule the patient to have a basal joint fluoroscopically guided steroid injections in [place] should the patient decide to move forth with such. We also did discussed the options of CMC joint arthroplasty, denervation, or basal joint fat grafting should he decideto consider surgical intervention but currently he is not interested in these options. documented in this encounter Plan of Treatment Upcoming Encounters Date Type Specialty Care Team Description 09/28/2022 Office Visit Radiation Oncology Natty Lawton, MARIA ELENA [facility] RADIATION ONCSHAYLA [place], [place] [address] (Wo rk) documented as of this encounter Visit Diagnoses Diagnosis Primary osteoarthritis of both first car pometacarpal joints Primary localized osteoarthrosis, hand documented in this encounter Care Teams Trench Pipe Layer Relationship Specialty Start Date End Date Natty Mckinney MD PCP - General 10/11/10 [address] [place] [address] documented as of this encounter
--- OUTSIDE RECORDS SUMMARY | 2022-09-22 00:41 | XMS_ITS | Encounter Summary ---
:1965 Author Organization [facility] [place] [address] Care Team Providers Name Role Phone Natty Mckinney MD Primary Care Provider Encounter Details Date Type Department Care Team Description 03/19/2020 Procedure visit Radiation Oncology Martínez Johnson ignant neoplasm of at [facility] MD Reza prostate [address] [facility] [address] RADIATION [phone] ONCOLOGY [place], [place] [address] Social History Tobacco Use Types Packs/Day Years [...] Sign Reading Time Taken Comments Blood Pressure 104/60 03/19/2020 11:10 AM EDT Pulse 64 03/19/2020 11:10 AM EDT Temperature 36.1 ??C (97 ??F) 03/19/2020 11:10 AM EDT Respiratory Rate 16 03/19/2020 11:10 AM EDT Oxygen Saturation 100% 03/19/2020 11:10 AM EDT Inhaled Oxygen Concentration - - Weight 70.7 kg (155 lb 12.8 oz) 03/19/2020 11:10 AM EDT Height - - Body Mass Index 21.13 09/08/2019 8:08 AM EDT documented in this encounter Progress Notes Martínez Johnson MD - 03/19/2020 11:15 AM EDT Radiation Oncology visit note PATIENT IDENTIFICATION Diagnosis Cancer Staging Malignant neoplasm of prostate Staging form: Prostate, AJCC 8th Edition - Clinical: Stage Unknown (cTX, cN0, cM0, PSA: 7.2, Grade Group: 1) - Signed by Santiago Arroyo MDon 12/16/2019 INTENT OF THERAPY: Definitive (Curative) RADIATION TREATMENT DETAILS: Treatment Site Prostate Prescribed Dose 36.25 Gy in 5 fractions Current Dose: 29 Gy in 4 fractions INTERVAL HISTORY Subjective: General - No changes since last seen. - No new nocturia / dysuria. On average uses restroom 1x/nt. Prostate IPSS and BALDEV(Pt Entered): last 5 values Prostate Today's Scores 09/08/2019 12/22/2019 Sexual Health Inventory for Men 24 25 International Prostate Symptom Score 15 (Moderate LUTS) 3 ( Mild LUTS) Pain: Pain score today is 0/10. MEDS Medications 03/19/20 1118 Medication Sig Taking? celecoxib (CeleBREX) 200 mg Capsule 2 times daily. For joint pain ciprofloxacin (Cipro) 500 mg Tablet Take 500 mg by mouth daily. ondansetron ODT (Zofran-ODT) 4 mg Tablet, Rapid Dissolve every 8 hours as needed. DULoxetine DR (Cymbalta) 30 mg Capsule, Delayed Release(E.C.) daily. VENTOLIN HFA 90 mcg/actuation HFA Aerosol Inhaler inhale 1 to 2 puffs by mouth every 4 hours if needed for shortness of breath wheezing cough HYDROcodone-acetaminophen (NORCO) 10-325 mg Tablet TK 2 TS PO TID WITH AN ADDITIONAL TABLET AT DINNER NEEDED methadone (DOLOPHINE) 10 mg Tablet 15 mg See Admin Instructions. At HS and middle of night. diphenoxylate-atropine (LOMOTIL) 2.5-0.025 mg per tablet 4 Tablet(s), PO, Three times daily EXAM: BP 104/60 Pulse 64 Temp 36.1 ??C (97 ??F) (Temporal) Comment (Src): checked immediately upon arrival to clinic by Edwige Vargas AWS ARCHITECT Resp 16 Wt 70.7 kg (155 lb 12.8 oz) SpO2 100% BMI 21.13 kg/m?? Constitutional: he appears well-developed and well-nourished. No distress. Performance Status: KPS Score ECOG Grade Definition X 90-100 0 Fully active, able to carry on all pre-disease performance without restriction 70-80 1 Restricted in physically strenuous activity but ambulatory and able to carry out work of a light or sedentary nature, e.g., light house work, office work 50-60 2 Ambulatory and capable of all selfcare but unable to carry out any work activities; up and about more than 50% of waking hours 30-40 3 Capable of only limited selfcare; confined to bed or chair more than 50% of waking hours 10-20 4 Completely disabled; cannot carry on any selfcare; totally confined to bed or chair IMPRESSION/PLAN Impression: Patient presents prior to treatment with FIFTH fraction of SBRT to the prostate. Plan: Continue with SBRT today. POST TREATMENT NOTE: I directly observed and supervised today's treatment from the radiation therapy console, which consisted of pretreatment imaging for setup, cone-beam CT for verification and intrafraction monitoring using the Marker-Match real time fiducial IGRT treatment system. Krishan tolerated treatment with no concerns. He will return for follow-up visit in 4 weeks, and recheck PSA in 3 months, per Dr. Arroyo documented in this encounter Plan of Treatment Upcoming Encounters Date Type Specialty Care Team Description 09/28/2022 Office Visit Radiation Oncology Natty Lawton APRN [facility] RADIATION ONCSHAYLA [place], [place] [address] (Wo rk) documented as of this encounter Visit Diagnoses Diagnosis Malignant neoplasm of prostate documented in this encounter Care Teams Student Records Specialist Relationship Specialty Start Date End Date Natty Mckinney MD PCP - General 10/11/10 [address] [place] [address] documented as of this encounter
--- OUTSIDE RECORDS SUMMARY | 2022-09-22 00:41 | XMS_ITS | Encounter Summary ---
:1965 Author Organization [facility] [place] [address] Care Team Providers Name Role Phone Natty Mckinney MD Primary Care Provider Encounter Details Date Type Department Care Team Description 05/06/2020 Telephone Radiation Oncology at [facility] pratt RN [address] [phone] Social History Tobacco Use Types Packs/Day Years [...] on file documented as of this encounter Miscellaneous Notes Telephone Encounter - Tamara Boone RN - 05/06/2020 10:57 AM EDT Radiation Oncology Nurse Telephone Note [facility] [place], [place] ----- Message from Santiago Arroyo MD sent at 05/06/2020 9:36 AM EDT ----- Please also call Krishan to let him know to start taking Flomax twice daily along with all his other meds. I forgot to mention this to him. 05/06/20 11:00 Called patient with this information. He was instructed that a common side effect is orthostatic hypotension and to call us if he develops lightheadedness with position changes. Patient verbalized understanding of these instructions. documented in this encounter Plan of Treatment Upcoming Encounters Date Type Specialty Care Team Description 09/28/2022 Office Visit Radiation Oncology Natty Lawton, MARIA ELENA [facility] RADIATION ONCSHAYLA [place], [place] [address] (Wo rk) documented as of this encounter Visit Diagnoses Not on filedocumented in this encounter Care Teams Pad Cutter Relationship Specialty Start Date End Date Natty Mckinney MD PCP - General 10/11/10 [address] [place] [address] documented as of this encounter
--- OUTSIDE RECORDS SUMMARY | 2022-09-22 00:41 | XMS_ITS | Encounter Summary ---
:1965 Author Organization [facility] [place] [address] Care Team Providers Name Role Phone Natty Mckinney MD Primary Care Provider Reason for Visit Reason Comments Prostate Cancer Encounter Details Date Type Department Care Team Description 02/09/2021 TH Visit Radiation Oncology Shweta Hendrix, Malign ant neoplasm of (TeleHealth) at [facility] MOLDER PUNCH prostate [address] [place], [place] RADIATION ONCOL OGY [address] [place], [place] [phone] Social History Tobacco Use Types Packs/Day Years [...] on file documented as of this encounter Progress Notes Shweta Hendrix APRN - 02/09/2021 1:45 PM EDT Telephone/TeleHealth Encounter Two attempts were made to reach patient and there was no answer. Message was left [facility] documented in this encounter Plan of Treatment Upcoming Encounters Date Type Specialty Care Team Description 09/28/2022 Office Visit Radiation Oncology Natty Lawton, MOL[facility] P[facility]CH [facility] RADIATION ONCSHAYLA [place], [place] [address] (Wo rk) documented as of this encounter Visit Diagnoses Diagnosis Malignant neoplasm of prostate documented in this encounter Care Teams Lumber Planer Relationship Specialty Start Date End Date Natty Mckinney MD PCP - General 10/11/10 [address] [place] [address] documented as of this encounter
--- OUTSIDE RECORDS SUMMARY | 2022-09-22 00:41 | XMS_ITS | Encounter Summary ---
:1965 Author Organization [facility] [place] [address] Care Team Providers Name Role Phone Natty Mckinney MD Primary Care Provider Encounter Details Date Type Department Care Team Description 04/29/2020 Telephone Radiation Oncology a t [facility] Arun Lyle [address] [place] [phone] Social History Tobacco Use Types [...] Office Visit Radiation Oncology Natty Lawton APRN [facility] RADIATION ONCSAHYLA [place], [place] [address] (Wo rk) documented as of this encounter Visit Diagnoses Not on filedocumented in this encounter Care Teams Macaroni Maker Relationship Specialty Start Date End Date Natty Mckinney MD PCP - General 10/11/10 [address] [place] [address] documented as of this encounter
--- OUTSIDE RECORDS SUMMARY | 2022-09-22 00:41 | XMS_ITS | Encounter Summary ---
:1965 Author Organization [facility] [place] [address] Care Team Providers Name Role Phone Natty Mckinney MD Primary Care Provider Encounter Details Date Type Department Care Team Description 03/28/2022 Telephone Radiation Oncology at [facility] [address] [phone] Social History Tobacco Use [...] this encounter Miscellaneous Notes Telephone Encounter - Rona Cornell - 03/28/2022 8:38 AM EDT Left Krishan a voicemail requesting him to return a call to the [facility] office to confirm if he has gone for recent lab work. Labs are required for his 6M FUV with Natty Lawton. documented in this encounter Plan of Treatment Upcoming Encounters Date Type Specialty Care Team Description 09/28/2022 Office Visit Radiation Oncology Natty Lawton, MARIA ELENA [facility] RADIATION ONCSHAYLA [place], [place] [address] (Wo rk) documented as of this encounter Visit Diagnoses Not on filedocumented in this encounter Care Teams Senior Ruby Developer Relationship Specialty Start Date End Date Natty Mckinney MD PCP - General 10/11/10 [address] [place] [address] documented as of this encounter
--- OUTSIDE RECORDS SUMMARY | 2022-09-22 00:41 | XMS_ITS | Encounter Summary ---
:1965 Author Organization [facility] [place] [address] Care Team Providers Name Role Phone Natty Mckinney MD Primary Care Provider Encounter Details Date Type Department Care Team Description 05/13/2020 TH Visit Radiation Oncology Santiago Arroyo Mali gnant neoplasm of (TeleHealth) at [facility] prostate [address] [place], [place] RADIATION ONCOL OGY [address] [place], [place] [phone] Social History Tobacco Use Types Packs/Day Years [...] documented as of this encounter Progress Notes Santiago Arroyo MD - 05/13/2020 8:00 AM EDT Images from the original note were not included. ? RADIATION ONCOLOGY - Phone Note ? Santiago Arroyo MD, MS Radiation Oncology ?? [facility] [phone] (paging air brake operator) Pager #[phone] ?? PATIENT IDENTIFICATION ? Name Krishan Monte Date of 1965 ? PCP Natty Mckinney MD Referring MD (if different) Dr. Seals ? Diagnosis Cancer Staging Malignant neoplasm of prostate Staging form: Prostate, AJCC 8th Edition - Clinical: Stage Unknown (cTX, cN0, cM0, PSA: 7.2, Grade Group: 1) - Signed by Santiago Arroyo MDon 12/16/2019 ?? Krishan Monte??is a 54 y.o.??man diagnosed with low-risk prostate cancer (cTx, PSA 7.2, Gl 6).??MRI did not show evidence of SV invasion, OPAL, or lymphadenopathy. He could not have a RACHAEL due to surgically absent rectum. He completed definitive therapy with SBRT to the prostate. ?? INTENT OF THERAPY: Definitive (Curative) ?? RADIATION TREATMENT DETAILS: ?? Treatment Site Prostate SBRT Prescribed Dose 36.25 Gy in 5 fractions ? Start Date End Date 03/10/20 03/19/20 ?? ACCOUNTING MANAGER CPA TREATMENT MANCILLA: ?? INTERVAL HISTORY Subjective: General - Overall feels better. - He was seen last 05/06, started Azo on Wednesday 05/09 with dramatic improvement in dysuria/ frequency. He then started flomax/decadron 12mg on 05/12 (yesterday) with ongoing continued improvement in both pelvic discomfort and LUTS. Prostate IPSS and BALDEV(Pt Entered): last 5 values Prostate Today's Scores 09/08/2019 12/22/2019 Sexual Health Inventory for Men 24 25 International Prostate Symptom Score 15 (Moderate LUTS) 3 ( Mild LUTS) Pain: Pain score today is 8/10 - this is a chronic type abdominal / pelvic pain (ongoing for multiple years). MEDS Medications 05/06/20 0900 Medication Sig Taking? dexamethasone (Decadron) 4 mg Tablet Take 3 tablets daily (after breakfast) amoxicillin (Amoxil) 500 mg Capsule daily. predniSONE (Deltasone) 20 mg Tablet 2 tablets daily. Tapering down 10 mg every 5 days predniSONE (Deltasone) 10 mg Tablet 1 tablet daily. Tapering down 10 mg Q 5days cyanocobalamin, vitamin B-12, 1,000 mcg/mL Solution ADM 1 ML IM Q MONTH DULoxetine DR (Cymbalta) 60 mg Capsule, Delayed Release(E.C.) daily. phenazopyridine (Pyridium) 200 mg Tablet Take 1 tablet by mouth 3 times daily as needed for Pain. omeprazole (PriLOSEC) 40 mg Capsule, Delayed Release(E.C.) Take 1 tablet daily 1/2 hour prior to breakfast while you are taking dexamethasone, to prevent upset stomach. tamsulosin (Flomax) 0.4 mg Capsule Take 1 capsule by mouth 2 times daily. celecoxib (CeleBREX) 200 mg Capsule 2 times daily. For joint pain ondansetron ODT (Zofran-ODT) 4 mg Tablet, Rapid Dissolve every 8 hours as needed. VENTOLIN HFA 90 mcg/actuation HFA Aerosol Inhaler [...] 4 Tablet(s), PO, Three times daily EXAM: There were no vitals taken for this visit. Constitutional: he appears well-developed and well-nourished. No distress. Performance Status: KPS Score ECOG Grade Definition 90-100 0 Fully active, able to carry on all pre-disease performance without restriction X 70-80 1 Restricted in physically strenuous activity but ambulatory and able to carry out work of alight or sedentary nature, e.g., light house work, [...] selfcare; totally confined to bed or chair LABS PSA History: 04/19/20: 1.9 09/08/19:??6.38 06/19/19: 7.2 01/06/19: 5.4 08/15/16: 3.32 04/16/15: 3.8 04/18/13: 4.57 11/22/12: 4.69 IMPRESSION/PLAN Impression: 54M s/p SBRT for low risk prostate cancer. He has symptoms consistent with significant radiation cystitis and is improving with symptom-based management. Plan: 1. R/o infection / UTI / nephrolithiais - he did not get U/A before starting Azo. Given clinical improvement we will defer on this testing for now. 2. Continue meds as he is taking them until Thursday 05/17 at which point we will call him and initiatea taper. He knows that on Sunday he should decrease to 8mg qday. He was instructed to continue taking a PPI along w this. This patient was seen within 90 days of treatment, so this encounter constitutes a no-charge global visit. documented in this encounter Plan of Treatment Upcoming Encounters Date Type Specialty Care Team Description 09/28/2022 Office Visit Radiation Oncology Natty Lawton, MARIA ELENA [facility] RADIATION ONCSHAYLA [place], [place] [address] (Wo rk) documented as of this encounter Visit Diagnoses Diagnosis Malignant neoplasm of prostate documented in this encounter Care Teams Lining Strap Closer Relationship Specialty Start Date End Date Natty Mckinney MD PCP - General 10/11/10 [address] [place] [address] documented as of this encounter
--- OUTSIDE RECORDS SUMMARY | 2022-09-22 00:41 | XMS_ITS | Encounter Summary ---
:1965 Author Organization [facility] [place] [address] Care Team Providers Name Role Phone Natty Mckinney MD Primary Care Provider Encounter Details Date Type Department Care Team Description 10/07/2020 Ancillary Procedure Radiology Library at Monica Mckinney, [facility] [address] [address] [place] [address] [phone] Social History Tobacco Use Types Packs/Day Years [...] 09/28/2022 Office Visit Radiation Oncology Natty Lawton, APPLICATION SECURITY CONSULTANT [facility] RADIATION ONCSHAYLA [place], [place] [address] (Wo rk) documented as of this encounter Procedures Procedure Name Priority Date/Time Associated Diagnosis Comme nts FILM LIBRARY Routine 10/07/2020 12:00 AM Results for this STORAGE ONLY DX EST procedure ar e in HAND the results section. documented in this encounter Results Film Library- Storage Only DX Hand (10/07/2020 12:00 AM EST) Specimen (Source) Anatomical Location Collection Method / Collectio n Time Received Time / Laterality Volume Narrative [facility] - 01/31/2022 11:11 AM EDT This exam is auto-finalizing. It's purpo se is for storage only. Natty Mckinney MD IMG FILM LIBRARY ORDERABLES Performing Organization Address City/State/ZIP Code Phon e Number [place], [place] documented in this encounter Visit Diagnoses Not on filedocumented in this encounter Care Teams Orthopedic Assistant Relationship Specialty Start Date End Date Natty Mckinney MD PCP - General 10/11/10 [address] [place] [address] documented as of this encounter
--- OUTSIDE RECORDS SUMMARY | 2022-09-22 00:41 | XMS_ITS | Encounter Summary ---
:1965 Author Organization [facility] [place] [address] Care Team Providers Name Role Phone Natty Mckinney MD Primary Care Provider Encounter Details Date Type Department Care Team Description 2020 TH Visit Radiation Oncology Santiago Arroyo Mali gnant neoplasm of (TeleHealth) at [facility] prostate [address] [place], [place] RADIATION ONCOL OGY [address] [place], [place] [phone] Social History Tobacco Use Types Packs/Day Years [...] encounter Progress Notes Santiago Arroyo MD - 2020 11:30 AM EDT Images from the original note were not included. ? RADIATION ONCOLOGY - Phone Note ? Santiago Arroyo MD, MS Radiation Oncology ?? [facility] [phone] (paging wash mill operator) Pager #[phone] ?? PATIENT IDENTIFICATION ? Name Krishan Monte [...] Start Date End Date 03/10/20 03/19/20 ?? VEHICLE DETAILER TREATMENT MANCILLA: ?? INTERVAL HISTORY Subjective: General - Overall continues to feel better. - Dysuria / frequency continue to improve. There was some confusion regarding his decadron taper.He took some prednisone instead of decadron and felt extremely tired as result. He has since resumeddecadron taper now down to 8mg daily with ongoing continued improvement in both pelvic discomfort and LUTS. He verbalized an understanding of taper ongoing. Prostate IPSS and BALDEV(Pt Entered): last 5 [...] tablet 4 Tablet(s), PO, Three times daily EXAM (not performed due to telehealth visit): Performance Status: KPS Score ECOG Grade Definition [...] Continue meds as he is taking them with taper. Decadron 1mg tabs to be sent to pharmacy for the last 2 weeks of taper. He was instructed to continue taking a PPI along w this. 3. We will see him for routine followup in July. This patient was seen within 90 days of treatment, so this encounter constitutes a no-charge global visit. CC Dr Mckinney PCP documented in this encounter Plan of Treatment Upcoming Encounters Date Type Specialty Care Team Description 09/28/2022 Office Visit Radiation Oncology Natty Lawton APRN [facility] RADIATION ONCSHAYLA [place], [place] [address] (Wo rk) documented as of this encounter Visit Diagnoses Diagnosis Malignant neoplasm of prostate documented in this encounter Care Teams Air Hammer Stripper Relationship Specialty Start Date End Date Natty Mckinney MD PCP - General 10/11/10 [address] [place] [address] documented as of this encounter
--- OUTSIDE RECORDS SUMMARY | 2022-09-22 00:41 | XMS_ITS | Encounter Summary ---
:1965 Author Organization [facility] [place] [address] Care Team Providers Name Role Phone Natty Mckinney MD Primary Care Provider Encounter Details Date Type Department Care Team Description 05/06/2020 Office Visit Radiation Oncology at Santiago Arroyo M alignant neoplasm of [facility] prostate [address] [place], [place] RADIATION ONCOL OGY [address] [place], [place] [phone] (Wo rk) Social History Tobacco Use Types Packs/Day Years [...] Sign Reading Time Taken Comments Blood Pressure 122/63 05/06/2020 8:00 AM EDT Pulse 64 05/06/2020 8:00 AM EDT Temperature 37.2 ??C (99 ??F) 05/06/2020 8:00 AM EDT Respiratory Rate 16 05/06/2020 8:00 AM EDT Oxygen Saturation 100% 05/06/2020 8:00 AM EDT Inhaled Oxygen Concentration - - Weight 66.9 kg (147 lb 6.4 oz) 05/06/2020 8:00 AM EDT Height - - Body Mass Index 19.99 09/08/2019 8:08 AM EDT documented in this encounter Progress Notes Santiago Arroyo MD - 05/06/2020 8:30 AM EDT Images from the original note were not included. ? RADIATION ONCOLOGY - Return Visit Note ? Santiago Arroyo MD, MS Radiation Oncology ?? [facility] [phone] (paging etch operator semiconductor wafers) Pager #[phone] ?? PATIENT IDENTIFICATION ? Name Krishan Monte Date of 1965 ? PCP Natty Mckinney MD Referring MD (if different) Dr. Seals ? Diagnosis Cancer Staging Malignant neoplasm of prostate Staging form: Prostate, AJCC 8th Edition - Clinical: Stage Unknown (cTX, cN0, cM0, PSA: 7.2, Grade Group: 1) - Signed by Santiago Arroyo MDon 12/16/2019 ?? Krishan Cobb Lavell??is a 54 y.o.??man diagnosed with low-risk prostate [...] Start Date End Date 03/10/20 03/19/20 ?? MODELING MANAGER TREATMENT MANCILLA: ?? INTERVAL HISTORY Subjective: General - Overall feels fair. - More urination noted, urinating very frequently throughout the day (hourly or more frequently),with dysuria rated 7/10. He started a prednisone taper 2 weeks ago at a dose of 80 mg daily (rx'd byPCP), now down to 50mg daily. He had some improvement in symptoms at the 80 mg dose. U/A has not been checked recently although he takes suppressive antibiotic (amoxicillin). Prostate IPSS and BALDEV(Pt Entered): last 5 values Prostate Today's Scores 09/08/2019 12/22/2019 Sexual Health Inventory for Men 24 25 International Prostate Symptom Score 15 (Moderate LUTS) 3 ( Mild LUTS) Pain: Pain score today is 8/10 - this is a chronic type abdominal / pelvic pain (ongoing for multiple years). MEDS Medications 05/06/20 0900 Medication Sig Taking? amoxicillin (Amoxil) 500 mg Capsule daily. Yes predniSONE (Deltasone) 20 mg Tablet 2 tablets daily. Tapering down 10 mg every 5 days Yes predniSONE (Deltasone) 10 mg Tablet 1 tablet daily. Tapering down 10 mg Q 5days Yes cyanocobalamin, vitamin B-12, 1,000 mcg/mL Solution ADM 1 ML IM Q MONTH Yes DULoxetine DR (Cymbalta) 60 mg Capsule, Delayed Release(E.C.) daily. Yes celecoxib (CeleBREX) 200 mg Capsule 2 times daily. For joint pain Yes HYDROcodone-acetaminophen (NORCO) 10-325 mg Tablet TK 2 TS PO TID WITH AN ADDITIONAL TABLET AT DINNER NEEDED Yes methadone (DOLOPHINE) 10 mg Tablet 15 mg See Admin Instructions. At HS and middle of night. Yes diphenoxylate-atropine (LOMOTIL) 2.5-0.025 mg per tablet 4 Tablet(s), PO, Three times daily Yes ondansetron ODT (Zofran-ODT) 4 mg Tablet, Rapid Dissolve every 8 hours as needed. VENTOLIN HFA 90 mcg/actuation HFA Aerosol Inhaler inhale 1 to 2 puffs by mouth every 4 hours if needed for shortness of breath wheezing cough EXAM: BP 122/63 Pulse 64 Temp 37.2 ??C (99 ??F) (Temporal) Resp 16 Wt 66.9 kg (147 lb 6.4 oz) SpO2 100% BMI 19.99 kg/m?? Constitutional: he appears well-developed and well-nourished. [...] He has symptoms consistent with significant radiation cystitis. Plan: 1. R/o infection / UTI / nephrolithiais - will send for U/A today 2. He reported some transient improvement in symptoms while on prednisone 80 (decadron 12mg equivalent). We will transition him over to decadron 4mg bid for up to 2 weeks followed by slow taper as symptoms respond. Further dose escalation will be considered depending on initial response. He was instructed to take a PPI along w this. 3. We will send pyridium and flomax to his pharmacy as well for urinary irritation. 4. Depending on symptom response we may send him for cystoscopy to confirm that this is in fact radiation cystitis and not another underlying process. This patient was seen within 90 days of treatment, so this encounter constitutes a no-charge global visit. documented in this encounter Plan of Treatment Upcoming Encounters Date Type Specialty Care Team Description 09/28/2022 Office Visit Radiation Oncology Natty Lawton APRN [facility] RADIATION ONCSHAYLA [place], [place] [address] (Wo rk) documented as of this encounter Visit Diagnoses Diagnosis Malignant neoplasm of prostate documented in this encounter Care Teams Public Service Administrator Relationship Specialty Start Date End Date Natty Mckinney MD PCP - General 10/11/10 [address] [place] [address] documented as of this encounter
--- OUTSIDE RECORDS SUMMARY | 2022-09-22 00:41 | XMS_ITS | Encounter Summary ---
:1965 Author Organization [facility] [place] [address] Care Team Providers Name Role Phone Natty Mckinney MD Primary Care Provider Encounter Details Date Type Department Care Team Description 04/29/2020 TH Visit Radiation Oncology Santiago Arroyo Mali gnant neoplasm of (TeleHealth) at [facility] prostate [address] [place], [place] RADIATION ONCOL OGY [address] [place], [place] [phone] Social History Tobacco Use Types Packs/Day Years [...] encounter Progress Notes Santiago Arroyo MD - 04/29/2020 2:30 PM EDT I called Krishan for a planned 1 month follow-up. He was able to answer the phone but did not have time to speak. He requests that we call him back. Overall though he states that he's 'doing fine.' I did look at his chart and noted PSA is 1.9 (vs preRT level of 7.2). We will attempt to reschedule. This patient was seen within 90 days of treatment, so this encounter constitutes a no-charge global visit. documented in this encounter Plan of Treatment Upcoming Encounters Date Type Specialty Care Team Description 09/28/2022 Office Visit Radiation Oncology Natty Lawton, MARIA ELENA [facility] RADIATION ONCSHAYLA [place], [place] [address] (Wo rk) documented as of this encounter Visit Diagnoses Diagnosis Malignant neoplasm of prostate documented in this encounter Care Teams Sales Marketing Manager Relationship Specialty Start Date End Date Natty Mckinney MD PCP - General 10/11/10 [address] [place] [address] documented as of this encounter
--- OUTSIDE RECORDS SUMMARY | 2022-09-22 00:41 | XMS_ITS | Encounter Summary ---
:1965 Author Organization [facility] [place] [address] Care Team Providers Name Role Phone Natty Mckinney MD Primary Care Provider Encounter Details Date Type Department Care Team Description 05/26/2020 Telephone Radiation Oncology at Tamara Boone RN [address] [phone] Social History Tobacco Use [...] Telephone Encounter - Tamara Boone RN - 05/26/2020 5:18 PM EDT Radiation Oncology Nurse Telephone Note [facility] [place], [place] Patient states that he is changing his pharmacy from [facility] to [facility] He asked that the Dexamethasone 1 mg and Flomax prescriptions be sent to [facility] He ran out ofthe Flomax yesterday and feels it does help He is still having some flow problems with urine . It takes a while to empty bladder. Denies straining. Dysuria is now resolved, but flow still an issue. Prescriptions for these medications were sent to [facility] per his request. Dr Arroyo informed of this via this note. documented in this encounter Plan of Treatment Upcoming Encounters Date Type Specialty Care Team Description 09/28/2022 Office Visit Radiation Oncology Natty Lawton, MARIA ELENA [facility] RADIATION ONCSHAYLA [place], [place] [address] (Wo rk) documented as of this encounter Visit Diagnoses Diagnosis Malignant neoplasm of prostate documented in this encounter Care Teams Lead Data Entry Operator Relationship Specialty Start Date End Date Natty Mckinney MD PCP - General 10/11/10 [address] [place] [address] documented as of this encounter
--- OUTSIDE RECORDS SUMMARY | 2022-09-22 00:41 | XMS_ITS | Encounter Summary ---
:1965 Author Organization [facility] [place] [address] Care Team Providers Name Role Phone Natty Mckinney MD Primary Care Provider Encounter Details Date Type Department Care Team Description 04/06/2021 Ancillary Radiology Library Shweta Hendrix Maligna nt neoplasm Procedure at [facility] PR[facility] ANALYST of prostate [facility] [address] [facility] RADIATION [place], [place] ONCOLOGY [address] [place], [place] [phone] Social History Tobacco Use Types Packs/Day Years [...] 09/28/2022 Office Visit Radiation Oncology Natty Lawton, SENIOR PRODUCT ANALYST [facility] RADIATION ONCOLO [place], [place] [address] (Wo rk) documented as of this encounter Procedures Procedure Name Priority Date/Time Associated Diagnosis Comme nts REQUEST FOR 2ND Routine 04/06/2021 1:15 PM Malignant neoplasm Results for this READ NUCLEAR EDT of prostate procedure are i n MEDICINE the results section. documented in this encounter Results Request for 2nd read Nuclear Medicine (04/06/2021 1:15 PM EDT) Anatomical Region Laterality Modality SO Specimen (Source) Anatomical Location Collection Method / Collectio n Time Received Time / Laterality Volume Impressions 04/06/2021 4:58 PM EDT No evidence of osseous metastasis. I have personally reviewed the image(s) and the resident's interpretation and agree with the findings, Shayy Venegas at 04/06/2021 4:58 PM Thank you for letting us participate in the care of this patient. ??If you are a health care provider and have any questi ons regarding this report, please contact the number below. ??For patients who have questions please contact the health hospice spiritual care coordinator that requested your imaging first. ? Narrative 04/06/2021 4:58 PM EDT EXAMINATION: REQUEST FOR 2ND READ NUCLEAR MEDICINE CLINICAL HISTORY: Prostate cancer with e vidence of bone metastasis; Sending Institution [facility]; Date of exam [id number]; I believe a reinterpretation of this exam may alter care of Patient. Yes TECHNIQUE: Three hours following the int ravenous administration of 25 mCi of technetium-99m MDP, planar images of the skeleton in anterior and posterior projection were obtained. COMPARISON: None FINDINGS: No suspicious osseous lesions. Right knee prosthesis present with nonsp ecific periprosthetic activity. Mild diffusely increased activity in the righ t femoral diaphysis proximal to the knee prosthesis is likely due to altered weig htbearing. Small focus of MDP avid degenerative leslie nge on the left side of L5/S1. Degenerative change also seen in the rig ht ankle. Normal renally excreted activity in the kidneys and in the urinary bladder. Procedure Note Loyd Hayden MD - 04/06/2021Formatti ng of this note might be different from the original. 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 Yes TECHNIQUE: Three hours following the int ravenous administration of 25 mCi of technetium-99m MDP, planar images of the skeleton in anterior and posterior projection were obtained. COMPARISON: None FINDINGS: No suspicious osseous lesions. Right knee prosthesis present with nonsp ecific periprosthetic activity. Mild diffusely increased activity in the righ t femoral diaphysis proximal to the knee prosthesis is likely due to altered weig htbearing. Small focus of MDP avid degenerative leslie nge on the left side of L5/S1. Degenerative change also seen in the rig ht ankle. Normal renally excreted activity in the kidneys and in the urinary bladder. IMPRESSION No evidence of osseous metastasis. I have personally reviewed the image(s) and the resident's interpretation and agree with the findings, Sahyy Venegas at 04/06/2021 4:58 PM Thank you for letting us participate in the care of this patient. If you are a health care provider and have any questi ons regarding this report, please contact the number below. For patients w ho have questions please contact the health hospice spiritual care coordinator that requested your imaging first. Shweta Hendrix SENIOR PRODUCT ANALYST IMG OUTSIDE INTERPRETATION O RDERABLES documented in this encounter Visit Diagnoses Diagnosis Malignant neoplasm of prostate documented in this encounter Care Teams Grounds Cleaner Relationship Specialty Start Date End Date Natty Mckinney MD PCP - General 10/11/10 [address] [place] [address] documented as of this encounter
--- OUTSIDE RECORDS SUMMARY | 2022-09-22 00:41 | XMS_ITS | Encounter Summary ---
:1965 Author Organization [facility] [place] [address] Care Team Providers Name Role Phone Natty Mckinney MD Primary Care Provider Encounter Details Date Type Department Care Team Description 05/06/2020 TH Visit Radiation Oncology Santiago Arroyo Mali gnant neoplasm of (TeleHealth) at [facility] prostate [address] [place], [place] RADIATION ONCOL OGY [address] [place], [place] [phone] Social History Tobacco Use Types Packs/Day Years [...] Progress Notes Santiago Arroyo MD - 05/06/2020 8:00 AM EDT Encounter created in error. Please see separate note from today's visit. documented in this encounter Plan of Treatment Upcoming Encounters Date Type Specialty Care Team Description 09/28/2022 Office Visit Radiation Oncology Natty Lawton, CONSUMER LOAN MANAGER [facility] RADIATION ONCSHAYLA [place], [place] [address] (Wo rk) documented as of this encounter Visit Diagnoses Diagnosis Malignant neoplasm of prostate documented in this encounter Care Teams Bilingual Middle School Teacher Relationship Specialty Start Date End Date Natty Mckinney MD PCP - General 10/11/10 [address] [place] [address] documented as of this encounter
--- OUTSIDE RECORDS SUMMARY | 2022-09-22 00:41 | XMS_ITS | Encounter Summary ---
:1965 Author Organization [facility] [place] [address] Care Team Providers Name Role Phone Natty Mckinney MD Primary Care Provider Encounter Details Date Type Department Care Team Description 05/11/2020 Telephone Radiation Oncology at Tamara Boone RN [address] [phone] Social History Tobacco Use [...] Telephone Encounter - Tamara Boone RN - 05/11/2020 4:47 PM EDT Radiation Oncology Nurse Telephone Note [facility] [place], [place] Telephone call to patient to inquire if he has submitted urine for UA to r/o UTI. He states that he has not done the UA yet. He has been taking the OTC Pyridium 2 of the 99.5mg tabs TID and is having very little dysuria. very small, not enough to worry about. He states his urine is a bright orange red color and verbalizes understanding that is from this medication. He is still having the pain in the perineum where his anus used to be. He is currently taking prednisone 50 mg daily until he can get the dexamethasone that Dr Arroyo ordered. Intervention: Will notify Dr Arroyo that he has not done a UA and has started the pyridium. Will get back to pt if he still wants the UA since the pyridium can effect the UA results. Plan: He confirms that Dr Arroyo has an appointment this at 0800 for follow-up. documented in this encounter Plan of Treatment Upcoming Encounters Date Type Specialty Care Team Description 09/28/2022 Office Visit Radiation Oncology Natty Lawton, MARIA ELENA [facility] RADIATION ONCSHAYLA [place], [place] [address] (Wo rk) documented as of this encounter Visit Diagnoses Not on filedocumented in this encounter Care Teams Spout Liner Relationship Specialty Start Date End Date Natty Mckinney MD PCP - General 10/11/10 [address] [place] [address] documented as of this encounter
--- OUTSIDE RECORDS SUMMARY | 2022-09-22 00:41 | XMS_ITS | Encounter Summary ---
:1965 Author Organization [facility] [place] [address] Care Team Providers Name Role Phone Natty Mckinney MD Primary Care Provider Encounter Details Date Type Department Care Team Description 05/13/2020 Telephone Radiation Oncology a t [facility] Arun Lyle [address] [place] [phone] Social History Tobacco Use Types [...] Office Visit Radiation Oncology Natty Lawton APRN [facility] RADIATION ONCSHAYLA [place], [place] [address] (Wo rk) documented as of this encounter Visit Diagnoses Not on filedocumented in this encounter Care Teams Sleeve Ironer Relationship Specialty Start Date End Date Natty Mckinney MD PCP - General 10/11/10 [address] [place] [address] documented as of this encounter
--- OUTSIDE RECORDS SUMMARY | 2022-09-22 00:41 | XMS_ITS | Encounter Summary ---
:1965 Author Organization [facility] [place] [address] Care Team Providers Name Role Phone Natty Mckinney MD Primary Care Provider Reason for Visit Reason Onset Date Comments Prior Authorization 03/24/2021 Encounter Details Date Type Department Care Team Description 03/24/2021 Telephone Hematology and Oncology at Shantell Munoz Prior Authorization [facility] [place] [address] Social History Tobacco Use Types Packs/Day Years [...] this encounter Miscellaneous Notes Telephone Encounter - Shantell Munoz - 03/24/2021 1:45 PM EDT PA: [id number] [facility] [phone] Case:#[id number] Approved Auth#: [id number] Valid: 03/24/21-05/08/21 documented in this encounter Plan of Treatment Upcoming Encounters Date Type Specialty Care Team Description 09/28/2022 Office Visit Radiation Oncology Natty Lawton, CHILD CARE CENTRE DIRECTOR [facility] RADIATION ONCOLO [facility] [place] [address] (Wo rk) documented as of this encounter Visit Diagnoses Not on filedocumented in this encounter Care Teams Butt Welder Relationship Specialty Start Date End Date Natty Mckinney MD PCP - General 10/11/10 [address] [place] [address] documented as of this encounter
--- OUTSIDE RECORDS SUMMARY | 2022-09-22 00:41 | XMS_ITS | Clinical Summary ---
:1965 Author Organization [facility] [place] [address] Care Team Providers Name Role Phone Natty Mckinney MD Primary Care Provider Allergies No known active allergies Medications Medication Sig Dispensed Refills Start Date End Date Status diphenoxylate-atropi 4 Tablet(s), PO, 0 02/23/2010 Active ne (LOMOTIL) Three times daily 2.5-0.025 mg per tablet VENTOLIN HFA 90 inhale 1 to 2 puffs 0 04/23/2019 Active mcg/actuation HFA by mouth every 4 Aerosol Inhaler hours if needed for shortness of breath wheezing cough HYDROcodone-acetamin TK 2 TS PO TID WITH 0 9 Active ophen (NORCO) 10-325 AN ADDITIONAL mg Tablet TABLET AT DINNER NEEDED methadone 15 mg See Admin 0 08/22/2019 Act sarah (DOLOPHINE) 10 mg Instructions. At HS Tablet and middle of night. ondansetron ODT every 8 hours as 0 11/28/2019 Active (Zofran-ODT) 4 mg needed. Tablet, Rapid Dissolve cyanocobalamin, ADM 1 ML IM Q MONTH 0 04/24/2020 Active vitamin B-12, 1,000 mcg/mL Solution omeprazole Take 1 tablet daily 30 capsule 05/06/2020 Active (PriLOSEC) 40 mg 1/2 hour prior to Capsule, Delayed breakfast while you Release(E.C.) are taking dexamethasone, to prevent upset stomach. Additional Information Patient not taking. Reported on 03/22/2022 aspirin 81 mg Tablet, Chewable Take 81 mg by mouth Daily. 0 Active diclofenac (VOLTAREN) 1 % Gel Apply topically. 0 Active naloxone 4 mg/actuation [place], by Nasal route. 0 Active Non-Aerosol Ostomy Supplies Misc Daily. 0 Active ciprofloxacin (Cipro) 500 mg TAKE ONE TABLET BY MOUTH 0 09/02/2021 Active Tablet TWICE A DAY FOR A WEEK THEN 1 TABLET DAILY celecoxib (CeleBREX) 200 mg 0 03/21/2022 Active Capsule gabapentin (Neurontin) 300 mg TAKE ONE CAPSULE BY MOUTH 0 02/16/2022 Active Capsule THREE TIMES A DAY NEEDED IN ADDITION TO THE 100MG CAPSULES gabapentin (Neurontin) 100 mg TAKE ONE CAPSULE BY MOUTH AT 0 03/19/2022 Active Capsule BEDTIME THEN TAKE TWO CAPSULES BY MOUTH AT BEDTIME THEN CAN ADD DAYTIME DOSES UP TO 100MGAM 100MG AT NOON AND 2 ibuprofen (Advil) 600 mg Tablet Take by mouth. 0 12/2020 Active nicotine (Nicoderm CQ) 21 mg/24 APPLY ONE PATCH TO SKIN ONCE 0 02/17/2022 Active hr Patch 24 hr DAILY - CHANGE EVERY 24 HOURS. DO NOT SMOKE WHILE WEARING THE PATCH Active Problems Problem Noted Date Primary osteoarthritis of both first carpometacarpal j oints 03/22/2022 Malignant neoplasm of prostate 12/16/2019 Cancer Staging: Clinical: Stage Unknown (cTX, cN0, cM0, PSA: 7.2, Grade Group: 1) - Signed by Santiago Arroyo MD on 12/16/2019 Family History Medical History Relation Comments Prostate Cancer Father Lung Cancer Maternal Aunt Cancer Paternal Grandfather Relation Status Comments Father (Age 67) of heart attack . Diagnosed with prostates cancer 65 Maternal Aunt Paternal Grandfather throat cancer Social History Tobacco Use Types Packs/Day Years [...] Assigned at Date Recorded Not on file Last Filed Vital Signs Vital Sign Reading Time Taken Comments Blood Pressure 110/63 03/22/2022 1:26 PM EDT Pulse 77 09/22/2021 10:55 AM EDT Temperature 37.1 ??C (98.8 ??F) 09/22/2021 10:55 AM EDT Respiratory Rate 20 09/22/2021 10:55 AM EDT Oxygen Saturation 100% 09/22/2021 10:55 AM EDT Inhaled Oxygen Concentration - - Weight 66.7 kg (147 lb) 03/22/2022 1:26 PM EDT Height 185.4 cm (6' 1) 09/03/2020 8:54 AM EDT Body Mass Index 19.39 09/03/2020 8:54 AM EDT Plan of Treatment Upcoming Encounters Date Type Specialty Care Team Description 09/28/2022 Office Visit Radiation Oncology Natty Lawton, FORMING ROLL OPERATOR [facility] RADIATION ON[place]LA [place], [place] [address] (Wo rk) Health Maintenance Due Date Last Done Comments Covid-19 Vaccine (#1) 1965 Pneumococcal Vaccine: At-Risk 5-64yrs (1 - PCV) 1970 HIV screen 1982 Hepatitis C Screening 1982 Lipid Screening 1982 Tdap adult 1983 Tetanus vaccine 1983 Colonoscopy 2009 Zoster vaccine (1 of 2) 2014 Advance Directive 2019 Influenza (Flu) vaccine (1 of 1 - Influenza standard 07/20/2022 series) Insurance Payer Benefit Plan / Subscriber ID Effective Dates Phone Addre ss Type Group [facility] [id number] 2020-Shannon [phone] [address] [address] MEDICARE MEDICARE t 5 [place] [address] Advance Directives Latest Code Status on File Code Status Date Activated Date Inactivated Comments Full Code 01/14/2020 10:43 AM 01/15/2020 4:34 AM Does patient have capacity to make decision: Yes Full Code 10/08/2019 8:44 AM 10/09/2019 4:32 AM Does patient have capacity to make decision: Yes Care Teams Rural Service Engineer Relationship Specialty Start Date End Date Natty Mckinney MD PCP - General 10/11/10 [address] [place] [address]
--- OUTSIDE RECORDS SUMMARY | 2022-09-22 00:41 | XMS_ITS | Encounter Summary ---
:1965 Author Organization [facility] [place] [address] Care Team Providers Name Role Phone Natty Mckinney MD Primary Care Provider Encounter Details Date Type Department Care Team Description 04/08/2020 Notes Only Radiation Oncology at DinaSantiago stover MD [address] RADIATION ONCOLOGY [place], [place] [address] [place], [place] [id number] (Wo rk) Social History Tobacco Use Types [...] encounter Progress Notes Santiago Arroyo MD - 04/08/2020 10:11 AM EDT Images from the original note were not included. RADIATION ONCOLOGY - Treatment Completion Summary Santiago Arroyo MD, MS Radiation Oncology [facility] [phone] (paging freelance operator) Pager #[phone] PATIENT IDENTIFICATION ?? Name Krishan Monte Date of 1965 ? PCP Natty Mckinney MD Referring MD (if different) Dr. Seals ? Diagnosis Cancer Staging Malignant neoplasm of prostate Staging form: Prostate, AJCC 8th Edition - Clinical: Stage Unknown (cTX, cN0, cM0, PSA: 7.2, Grade Group: 1) - Signed by Santiago Arroyo MDon 12/16/2019 ?? Krishan Monte is a 54 y.o. man diagnosed with low-risk prostate cancer (cTx, PSA 7.2, Gl 6). MRI did not show evidence of SV invasion, OPAL, or lymphadenopathy. He could not have a RACHAEL due to surgically absent rectum. ?? INTENT OF THERAPY: Definitive (Curative) ?? RADIATION TREATMENT DETAILS: ?? Treatment Site Prostate SBRT Prescribed Dose 36.25 Gy in 5 fractions ? Start Date End Date 03/10/20 03/19/20 ?? OFFICE ADMINISTRATION INSTRUCTOR TREATMENT FIERRO: SPECIAL TECHNICAL CONSIDERATIONS: The patient was simulated on a CT simulator. Customized fierro were designed to encompass the targetvolume and identify organs at risk and with the intent of minimizing normal tissue toxicity. TREATMENT TOLERANCE: With regard to side effects noted during radiotherapy, the patient tolerated treatment extremely well with no significant acute (Grade 3 or above) toxicity. TREATMENT RESPONSE: The patient's response to treatment was undetermined, as he was largely asymptomatic at the time of presentation. FOLLOWUP: Follow-up visit with Radiation Oncology in [facility] is scheduled for 04/29/20 for clinical symptom check; he has received instructions to call this office or seek the help of the local emergency room if any further problems should arise prior to followup. documented in this encounter Plan of Treatment Upcoming Encounters Date Type Specialty Care Team Description 09/28/2022 Office Visit Radiation Oncology Natty Lawton APRN [facility] [address] [place], [place] [address] (Wo rk) documented as of this encounter Visit Diagnoses Not on filedocumented in this encounter Care Teams Senior Consultant Relationship Specialty Start Date End Date Natty Mckinney MD PCP - General 10/11/10 [address] [place] [address] documented as of this encounter
--- OUTSIDE RECORDS SUMMARY | 2022-09-22 00:41 | XMS_ITS | Encounter Summary ---
:1965 Author Organization [facility] [address] Care Team Providers Name Role Phone Natty Mckinney MD Primary Care Provider Reason for Visit Reason Comments Prostate Cancer Encounter Details Date Type Department Care Team Description 03/24/2021 TH Visit Radiation Oncology Shweta Hendrix, Malign ant neoplasm of (TeleHealth) at [facility] REACTOR OPERATOR prostate [address] [place], [place] RADIATION ONCOL OGY [address] [place], [place] [phone] Social History Tobacco Use Types Packs/Day Years [...] encounter Progress Notes Shweta Hendrix APRN - 03/24/2021 10:30 AM EDT Images from the original note were not included. Bone Telephone/TeleHealth Encounter Telephone encounter due to National Public Health Emergency. Patient verbally consented to conduct this clinical encounter by telephone. He acknowledges that insurance may be billed for the care provided similar to an in person visit. Patient is at the following location at the time of the phone call. Home: XXX Patient Identification: Reason for contact: Surveillance post treatment for prostate cancer Time since completion of XRT: 1 year HPI: Name Krishan Monte Date of 1965 ? [...] show evidence of SV invasion, OPAL, or lymphadenopathy.??He could not have a RACHAEL due to surgically absent rectum. He completed definitive therapy with SBRT to the prostate. Krishan Monte is a 54 y.o. male with history of Crohn's disease s/p colectomy recently diagnosed with a low-risk prostate cancer. He has had an ileostomy since 1988. ?? Presenting Symptoms / Duration: Elevated PSA. Rectal exam not possible as patient is s/p APR. ?? Prior consultations / recommendations: Dr Seals 10/14 phone note - concerned about as patient may be understaged given MRI findings, patient's age ?? Tumor Board note: Recommendations: - Treatment > . - Options include extraperitoneal Robotic Prostatectomy vs. Open Prostatectomy vs. Radiation ?? PSA History: 09/08/19:??6.38 06/19/19: 7.2 01/06/19: 5.4 08/15/16: 3.32 04/16/15: 3.8 04/18/13: 4.57 11/22/12: 4.69 ?? Pathology Results / Location: CT guided biopsy 09/08/19: Gl 3+3 x 4/12 cores ?? Pertinent Imaging Studies: mpMRI 09/23/19: - 29.2cc gland size - PI RADS-5, 3cm lesion RT mid/base PZ lesion - no LAD/OPAL ?? INTENT OF THERAPY: Definitive (Curative) ?? RADIATION TREATMENT DETAILS: ?? Treatment Site Prostate??SBRT Prescribed Dose 36.25 Gy in 5 fractions ? Start Date End Date 03/10/20 03/19/20 ?? JAMB CUTTER TREATMENT MANCILLA: ?? Patient Active Problem List Diagnosis Code ??? Malignant neoplasm of prostate C61 Past Medical History: Diagnosis Date ??? Cataract ??? Crohn disease diagnosed at age 10 yrs ??? Ileostomy in place 1988 Chrons disease Past Medical History: Diagnosis Date ??? Cataract ??? Crohn disease diagnosed at age 10 yrs ??? Ileostomy in place 1988 Chrons disease Past Surgical History: Procedure Laterality Date ??? CATARACT REMOVAL WITH IMPLANT Bilateral ??? COLON SURGERY multiple surgeries for Crohn's disease. no large bowel. Has ileostomy ??? CT GUIDED BIOPSY OTHER 10/08/2019 CT Guided Biopsy Other 10/08/2019 [facility] RAD CAT SCAN Medications 03/24/21 1129 Medication Sig Taking? mecobalamin, vitamin B12, 1,000 mcg Tablet, Chewable Inject into the vein. Yes diclofenac (VOLTAREN) 1 % Gel Apply topically. Yes naloxone 4 mg/actuation [place], Non-Aerosol by Nasal route. Yes nicotine (NICODERM CQ) 14 mg/24 hr Patch 24 hr Change on the skin. Yes aspirin 81 mg Tablet, Chewable Take 81 mg by mouth Daily. gabapentin (Neurontin) 100 mg Capsule TAKE ONE CAPSULE BY MOUTH THREE TIMES A DAY Ostomy Supplies Misc Daily. pantoprazole EC (Protonix) 40 mg Tablet, Delayed Release (E.C.) TAKE ONE TABLET BY MOUTH EVERY DAY tamsulosin (Flomax) 0.4 mg Capsule Take 1 capsule by mouth 2 times daily. Patient not taking: Reported on 09/03/2020 amoxicillin (Amoxil) 500 mg Capsule daily. cyanocobalamin, vitamin B-12, 1,000 mcg/mL Solution ADM 1 ML IM Q MONTH DULoxetine DR (Cymbalta) 60 mg Capsule, Delayed Release(E.C.) daily. phenazopyridine (Pyridium) 200 mg Tablet Take 1 tablet by mouth 3 times daily as needed for Pain. Patient not taking: Reported on 09/03/2020 omeprazole (PriLOSEC) 40 mg Capsule, Delayed Release(E.C.) Take 1 tablet daily 1/2 hour prior to breakfast while you are taking dexamethasone, to prevent upset stomach. Patient not taking: Reported on 09/03/2020 celecoxib (CeleBREX) 200 mg Capsule 2 times [...] tablet 4 Tablet(s), PO, Three times daily No Known Allergies Social History Tobacco Use ??? Smoking status: Current Every Day Smoker Packs/day: 1.50 ??? Smokeless tobacco: Never Used ??? Tobacco comment: rolls own cigarette. started smoking 14 yrs old Substance Use Topics ??? Alcohol use: Yes Comment: 1 beer a month ??? 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 Because he had persistent hip pain he had imaging done of his hip at [facility] where there were concerning findings and it was unclear if there was possible mets to his bone. Both of his PCP and orthopedic provider recommend that he have a bone scan and request that we arrange this. He reports no issues with urinary function. He has his usual bowel function via his ileostomy and hedenies bleeding. I reviewed patient allergies, medications, problem list, Previous medical history, Previous surgicalhistory, family history and social history. ROS: Constitutional: + fatigue which is worse. Has had severe Chron's disease for years and nutrition has been a challenge. Can tolerate minimal activity of 5 minutes--this is not a change Resp: negative CV negative Neuro negative : satisfaction with voiding pattern ;takes longer to empty but otherwise is doing well Incontinence/leakage/number pads a day: none Hematuria: none Urgency: none Dysuria: none Difficulty with starting urine flow: none GI: has ileostomy -- with no evidence of bleeding currently. He has Chron's disease and has made the decision that he does not want TPN when he can no longer eat. Followed by PCP Sexual: N/E Musculoskeletal: Has had hip pain in left hip since completion of XRT. At times it feels like a hot pokerand other times feels like an ache. It does not affect walking. He had recent imaging at [facility] demonstrated some concerning findings . Recent knee replacement on the right Exercise/functional status: Limited due to fatigue but able to drive and manage ostomy care, ADL and IADL Psych Some anxiety related to recent XR findings KPS 70-80 PE : N/E Labs: 02/08/2021-- CA=9.1, GLU= 121, BUN=12, CREAT=1.0, EGFR=>60, k=5.0, VG=168, CO2=26.4, WBC=10.03, RBC= 4.21, HGB=13.4, HCT=41.7, AWQG=079 PSA History:?? 12/21/2020-- 1.6 08/31/20 1.1 04/19/20: 1.9 09/08/19:??6.38 06/19/19: ?7.2 01/06/19: ?5.4 08/15/16: ?3.32 04/16/15: ?3.8 04/18/13: ?4.57 11/22/12: ?4.69 Imaging: Assessment/ Plan MR Monte IS A is a 55 y.o.man who is s/p SBRT for low risk prostate cancer PSA 7.2, [place] 3+3. Hewas treated with radiation therapy to a dose of 36.25 in five fractions which was completed on 03/19/2020. He is satisfied with his current urinary function. He had recent XR after a knee replacement and due to persistent significant pain and this had abnormal findings. I will request copies of his XR report and order a bone scan. He has not had a PSA sinceFeb and will order this to be done now as well. He is in agreement with this plan. If the bone scan is normal we will plan ongoing surveillance in six months with labs prior to followup visit ?? I provided care to Mr Monte via telephone encounter and spent 30 minutes preparing for the virtual visit, by reviewing previous care as documented in patient's EMR, in direct discussion with the patient over the phone and afterward coordinating and documenting in the medical record He had the opportunity to ask questions and I answered to best of my knowledge. He agreed to call radiation oncology in between visits with questions and concerns. documented in this encounter Plan of Treatment Upcoming Encounters Date Type Specialty Care Team Description 09/28/2022 Office Visit Radiation Oncology Natty Lawton APRN [facility] [place] [address] (Wo rk) documented as of this encounter Visit Diagnoses Diagnosis Malignant neoplasm of prostate documented in this encounter Care Teams Humanities Division Chair Relationship Specialty Start Date End Date Natty Mckinney MD PCP - General 10/11/10 [address] [place] [address] documented as of this encounter
--- OUTSIDE RECORDS SUMMARY | 2022-09-22 00:41 | XMS_ITS | Encounter Summary ---
:1965 Author Organization [facility] [place] [address] Care Team Providers Name Role Phone Natty Mckinney MD Primary Care Provider Reason for Visit - Closed Specialty Diagnoses / Procedures Referred By Contact Refer red To Contact Procedures Natty Mckinney MD Film Library- Storage Only [address] [facility] [place] [address] Referral ID Status Reason Start Date Expiration Date Visits Requ ested Visits Authorized [id number] Closed 03/31/2021 03/31/2022 1 1 Encounter Details Date Type Department Care Team Description 03/30/2021 Ancillary Procedure Radiology Library at Monica Mckinney [facility] [address] [place] [address] [place] [address] [phone] Social History Tobacco Use Types Packs/Day Years [...] 09/28/2022 Office Visit Radiation Oncology Natty Lawton, COMMUNITY ADMINISTRATOR [facility] RADIATION ONCSHAYLA [place], [place] [address] (Wo rk) documented as of this encounter Procedures Procedure Name Priority Date/Time Associated Diagnosis Comme nts FILM LIBRARY Routine 03/30/2021 12:00 AM Results for this STORAGE ONLY EDT procedure are i n NUCLEAR MEDICINE the results section. documented in this encounter Results Film Library- Storage Only nuclear medicine (03/30/2021 12:00 AM EDT) Specimen (Source) Anatomical Location Collection Method / Collectio n Time Received Time / Laterality Volume Narrative [facility] - 03/31/2021 9:16 AM EDT This exam is auto-finalizing. It's purpo se is for storage only. Natty Mckinney MD IMG FILM LIBRARY ORDERABLES Performing Organization Address City/State/ZIP Code Phon e Number [place], [place] documented in this encounter Visit Diagnoses Not on filedocumented in this encounter Care Teams Continuous Miner Operator Relationship Specialty Start Date End Date Natty Mckinney MD PCP - General 10/11/10 [address] [place] [address] documented as of this encounter
--- OUTSIDE RECORDS SUMMARY | 2022-09-22 00:41 | XMS_ITS | Encounter Summary ---
:1965 Author Organization [facility] [address] Care Team Providers Name Role Phone Natty Mckinney MD Primary Care Provider Encounter Details Date Type Department Care Team Description 07/08/2021 Orders Only Radiation Oncology at Natty Lawton Ma lignant neoplasm of [facility] MANAGER OF FINANCE prostate (Primary Dx) [facility] [place] [address] RADIATION ONCOLOGY [phone] [place], [place] [address] Social History Tobacco Use Types [...] Office Visit Radiation Oncology Natty Lawton APRN [facility] [place] [place] [address] (Wo rk) documented as of this encounter Visit Diagnoses Diagnosis Malignant neoplasm of prostate - Primary documented in this encounter Care Teams Band Saw Marker Relationship Specialty Start Date End Date Natty Mckinney MD PCP - General 10/11/10 [address] [place] [address] documented as of this encounter
--- OUTSIDE RECORDS SUMMARY | 2022-09-22 00:41 | XMS_ITS | Encounter Summary ---
:1965 Author Organization [facility] [place] [address] Care Team Providers Name Role Phone Natty Mckinney MD Primary Care Provider Reason for Referral Consultation (Routine) - Authorized Specialty Diagnoses / Procedures Referred By Contact Refer red To Contact Orthopaedics Diagnoses Osteoarthritis of carpometacarpal (CMC) joint of thumb, unspecified laterality, unspecified osteoarthritis type Ulnar abutment syndrome of both wrists Ector Irizarry MD Warhold, Lance G, MD [address] [place], [place] [address] [place] [address] Phone: Fax: Referral ID Status Reason Start Expiration Visits Visits Date Date Requested Authorized [id number] Authorized Consult, 02/08/2022 02/08/2023 6 6 Test & Treat PCP Updated and/or Approved Encounter Details Date Type Department Care Team Description 02/08/2022 Transcribe Orders eDH Incoming [place], Osteoarthr itis of carpometacarpal (CMC) joint of thumb, unspecified laterality, unspecified osteoarthritis type; Referrals MD Ector Ulnar abutment syndrome of both wrists [phone] [address] [place], [place] [address] Social History Tobacco Use Types Packs/Day Years [...] Oncology Natty Lawton, MARIA ELENA [facility] RADIATION ONCOLO [place], [place] [address] (Wo rk) Scheduled Referrals Name Type Priority Associated Diagnoses Order S chedule Referral to Outpatient Routine Osteoarthritis of Ordered: Orthopaedics Referral carpometacarpal (CMC) 2021 joint of thumb, unspecified laterality, unspecified osteoarthritis t ype Ulnar abutment syndrome of both wrists documented as of this encounter Visit Diagnoses Diagnosis Osteoarthritis of carpometacarpal (CMC) joint of thumb, unspecified laterality, unspecified osteoarthritis type Ulnar abutment syndrome of both wrists documented in this encounter Care Teams Anime Artist Relationship Specialty Start Date End Date Natty Mckinney MD PCP - General 10/11/10 [address] [place] [address] documented as of this encounter
--- OUTSIDE RECORDS SUMMARY | 2022-09-22 00:41 | XMS_ITS | Encounter Summary ---
:1965 Author Organization [facility] [place] [address] Care Team Providers Name Role Phone Natty Mckinney MD Primary Care Provider Encounter Details Date Type Department Care Team Description 04/06/2021 [facility]phone [facility] [address] [facility] RADIATION ONCOLOGY [place], [place] [phone] [place] [address] [phone] (Wo rk) Social History Tobacco Use Types [...] this encounter Miscellaneous Notes Telephone Encounter - Shweta Hendrix APRN - 04/07/2021 9:38 AM EDT Call to Dr Lopes patient's PCP to review the results of patient's recent bone scan and the second read done by [facility]. She is appreciative of the results. I informed her that patient has beennotified. FINDINGS: No suspicious osseous lesions. Right knee prosthesis present with nonspecific periprosthetic activity. Mild diffusely increased activity in the right femoral diaphysis proximal to the knee prosthesis is likely due to altered weightbearing. Small focus of MDP avid degenerative change on the left side of L5/S1. Degenerative change also seen in the right ankle. Normal renally excreted activity in the kidneys and in the urinary bladder. ?? IMPRESSION No evidence of osseous metastasis. ?? I have personally reviewed the image(s) and the resident's interpretation and agree with the findings, Loyd Hayden MD at 04/06/2021 4:58 PM ?? Telephone Encounter - Shweta Hendrix APRN - 04/06/2021 5:27 PM EDT [place] read was done of recent [place] bone scan. This does not show any evidence of metastasis. There aresome mild degenerative changes in his lower spine. Call was made to patient to review those findings and Dr Mckinney will also be called documented in this encounter Plan of Treatment Upcoming Encounters Date Type Specialty Care Team Description 09/28/2022 Office Visit Radiation Oncology Natty Lawton APRN [facility] RADIATION ONCSHAYLA [place], [place] [address] (Wo rk) documented as of this encounter Visit Diagnoses Not on filedocumented in this encounter Care Teams Slip Feeder Relationship Specialty Start Date End Date Natty Mckinney MD PCP - General 10/11/10 [address] [place] [address] documented as of this encounter
--- OUTSIDE RECORDS SUMMARY | 2022-09-22 00:42 | XMS_ITS | Encounter Summary ---
:1965 Author Organization [facility] [place] [address] Care Team Providers Name Role Phone Natty Mckinney MD Primary Care Provider Encounter Details Date Type Department Care Team Description 12/03/2019 Telephone Radiation Oncology a [facility] Melvi Wise [address] [place] [address] [phone] Social History Tobacco Use Types Packs/Day Years Used Date Never Assessed Sex Assigned at Date Recorded Not on file documented as of this encounter Miscellaneous Notes Telephone Encounter - Melvi Wise - 12/03/2019 10:47 AM EST Radiation Oncology New Patient Scheduling Note I called Mr. Monte to inform him that Dr. Seals has referred him to see Dr. Arroyo for a radiation new patient consultation. I have confirmed his appointments on Dec 22 that will include a 30 minute visit at 8:30 am to see our clinic nurse, followed by a [address] Arroyo. I have requested that he arrive 15 minutes early in order to complete paperwork. I confirmed our address and answered all of his questions, and our contact information should any further questions or concerns arise. documented in this encounter Plan of Treatment Upcoming Encounters Date Type Specialty Care Team Description 09/28/2022 Office Visit Radiation Oncology Natty Lawton, UTILITY SALES REPRESENTATIVE [facility] DR LYSSA [place]O [place], [place] [address] (Wo rk) documented as of this encounter Visit Diagnoses Not on filedocumented in this encounter Care Teams Home Care Specialist Relationship Specialty Start Date End Date Natty Mckinney MD PCP - General 10/11/10 [address] [place] [address] documented as of this encounter
--- OUTSIDE RECORDS SUMMARY | 2022-09-22 00:42 | XMS_ITS | Encounter Summary ---
:1965 Author Organization [facility] [place] [address] Care Team Providers Name Role Phone Natty Mckinney MD Primary Care Provider Encounter Details Date Type Department Care Team Description 01/02/2020 Telephone Radiation Oncology a t [facility] Arun Lyle [address] [place] [address] [phone] Social History Tobacco Use Types [...] Office Visit Radiation Oncology Natty Lawton APRN [facility] RADIATION ONCSHAYLA [place], [place] [address] (Wo rk) documented as of this encounter Visit Diagnoses Not on filedocumented in this encounter Care Teams Fixture Designer Relationship Specialty Start Date End Date Natty Mckinney MD PCP - General 10/11/10 [address] [place] [address] documented as of this encounter
--- OUTSIDE RECORDS SUMMARY | 2022-09-22 00:42 | XMS_ITS | Encounter Summary ---
:1965 Author Organization [facility] Address [facility] [place] [address] Care Team Providers Name Role Phone Natty Mckinney MD Primary Care Provider Encounter Details Date Type Department Care Team Description 09/08/2019 Hospital Encounter Hematology and Oncol ogy at [facility] Elevated PSA [facility] [place] [phone] Social History Tobacco Use Types Packs/Day Years Used Date Never Assessed Sex Assigned at Date Recorded Not on file documented as of this encounter Medications at Time of Discharge Medication Sig Dispensed Refills Start Date End Date VENTOLIN HFA 90 inhale 1 to 2 puffs by 0 04/23/20 19 mcg/actuation HFA mouth every 4 hours if Aerosol Inhaler needed for shortness of breath wheezing cough HYDROcodone-acetaminophe TK 2 TS PO TID WITH AN 0 08/22/2019 n (NORCO) 10-325 mg ADDITIONAL TABLET AT Tablet DINNER NEEDED methadone (DOLOPHINE) 10 15 mg See Admin 0 2018 mg Tablet Instructions. At HS and middle of night. diphenoxylate-atropine 4 Tablet(s), PO, Three 0 0 02/23/2010 (LOMOTIL) 2.5-0.025 mg times daily per tablet documented as of this encounter Plan of Treatment Upcoming Encounters Date Type Specialty Care Team Description 09/28/2022 Office Visit Radiation Oncology Natty Lawton, CDL TRUCK DRIVER [facility] RADIATION ONCSHAYLA [place], [place] [address] (Wo rk) documented as of this encounter Procedures Procedure Name Priority Date/Time Associated Diagnosis Comme nts HC PROSTATE STAT 09/08/2019 7:52 AM Elevated PSA Results f or this SPECIFIC ANTIGEN EDT procedure a re in the results section. documented in this encounter Results (ABNORMAL) PSA, total and free (09/08/2019 7:52 AM EDT) Analysis Performed At Patho logis Time Signature PSA Total 6.38 (H) 0.00 - [facility] (Ultrasensitiv 4.00 ng/mL [facility]) [facility] PSA Free 0.6 ng/mL [facility] PSA % Free 10 % [facility] Comment: Probability of finding FAMILY INDEPENDENCE CASE MANAGER on needle bio psy by age in years: % fPSA ? 50-59yrs ? 60-69yrs ? >=70yrs <=10 ? 49.2 ? 57. 5 ? 64.5 11-18 ?26.9 ? 33. 9 ? 40.8 19-25 ?18.2 ? 23. 9 ? 29.7 >25 ? 9.1 ? 12 .2 ? 15.8 Specimen Anatomical Collection Method Collection Time Receive d Time (Source) Location / / Volume Laterality Blood specimen 09/08/2019 7:52 AM 019 8:02 (specimen) EDT AM EDT Resulting Agency Comment Spec In Lab Daniele Seals MD CHEMISTRY ORDERABLES Performing Organization Address City/State/[place] [address] documented in this encounter Visit Diagnoses Diagnosis Elevated PSA Elevated prostate specific antigen (PSA) documented in this encounter Care Teams Band Machine Operator Relationship Specialty Start Date End Date Natty Mckinney MD PCP - General 10/11/10 [address] [place] [address] documented as of this encounter
--- OUTSIDE RECORDS SUMMARY | 2022-09-22 00:42 | XMS_ITS | Encounter Summary ---
:1965 Author Organization [facility] [place] [address] Care Team Providers Name Role Phone Natty Mckinney MD Primary Care Provider Encounter Details Date Type Department Care Team Description 10/08/2019 Laboratory Appointment Lab 3L Irais Malloy Stomach ache; [facility] Epidemic vomiting syndrome; [facility] [place] [address] Social History Tobacco Use Types Packs/Day Years Used Date Never Assessed Sex Assigned at Date Recorded Not on file documented as of this encounter Plan of Treatment Upcoming Encounters Date Type Specialty Care Team Description 09/28/2022 Office Visit Radiation Oncology Natty Lawton, BALLOON ARTIST [facility] ER RADIATION ONCSHAYLA [place], [place] [address] (Wo rk) documented as of this encounter Procedures Procedure Name Priority Date/Time Associated Comments Diagnosis TSH CASCADE Routine 10/08/2019 7:14 AM Results f or this EST procedure are i n the results section. HEMOGRAM Routine 10/08/2019 7:14 AM Stomach ache Results for this EST Epidemic vomiting procedure are in syndrome the results Ileostomy status section. DIFFERENTIAL, Routine 10/08/2019 7:14 AM Stomach ache Results for this AUTOMATED EST Epidemic vomiting procedure are in syndrome the results Ileostomy status section. HC VENIPUNCTURE Routine 10/08/2019 7:14 AM Stomach ache Results for this EST Epidemic vomiting procedure are in syndrome the results Ileostomy status section. HC PCH VITAMIN A Routine 10/08/2019 7:14 AM Stomach ache Results for this EST Epidemic vomiting procedure are in syndrome the results Ileostomy status section. HC ESR-SEDIMENTATION Routine 10/08/2019 7:14 AM Stomach ache Results for this RATE, BLOOD EST Epidemic vomiting procedure are in syndrome the results Ileostomy status section. HC CBC,PLT & AUTO DIFF Routine 10/08/2019 7:14 AM Stomac h ache EST Epidemic vomiting syndrome Ileostomy status HC MAGNESIUM, SERUM Routine 10/08/2019 7:14 AM Stomach a jane Results for this EST Epidemic vomiting procedure are in syndrome the results Ileostomy status section. HC CREATINE Routine 10/08/2019 7:14 AM Stomach ache Results for this PHOSPHOKINASE, SERUM EST Epidemic vomiting pr ocedure are in syndrome the results Ileostomy status section. COMPREHENSIVE Routine 10/08/2019 7:14 AM Results for this METABOLIC PANEL EST procedure ar e in (NON-FASTING) the results section. documented in this encounter Results TSH [place] (10/08/2019 7:14 AM EST) athologist Signature TSH 1.94 0.27 - 4.20 [facility] mcIU/mL [facility] Specimen Anatomical Collection Method Collection Time Receive d Time (Source) Location / / Volume Laterality Blood specimen Venous Draw / 10/08/2019 7:14 AM 2018 7:27 (specimen) Unknown EST AM EST Resulting Agency Comment Spec In Lab Natty Mckinney MD CHEMISTRY ORDERABLES Performing Organization Address City/State/ZIP [place] [address] Comprehensive metabolic panel (non-fasting) (10/08/2019 7:14 AM EST) athologist Signature Glucose Lvl 95 65 - 199 [facility] mg/dL [facility] Comment: Diabetes: >=200 mg/dL plus symp toms BUN 16 10 - 20 mg/dL [facility] Creatinine 0.93 0.80 - 1.50 mg/dL [facility] Sodium 138 135 - 145 mmol/L [facility] Potassium 4.6 3.5 - 5.0 mmol/L [facility] Comment: Please note: ??Patients with WBC >100,00 0 may have falsely elevated Potassium levels. ??For accurate Potassium quantif ication in these patients send serum separator tube (gold top) for subsequent determinations. ??Contact the Clinical Chemistry Laboratory if there are any qu estions. Chloride 104 98 - 107 mmol/L [facility] CO2 23 22 - 31 mmol/L [facility] Anion Gap 11 5 - 15 mmol/L [facility] Calcium 9.4 8.5 - 10.5 mg/dL [facility] Total Protein 6.7 6.1 - 8.0 gm/dL [facility] Albumin 4.4 3.2 - 5.2 gm/dL [facility] AST 21 0 - 39 unit/L [facility] ALT 33 0 - 55 unit/L [facility] Alk Phos 97 40 - 130 unit/L [facility] Total Bilirubin 0.6 0.2 - 1.3 mg/dL [facility] Estimated GFR 92 >=60 mL/min/1.73 m?? [facility] Comment: The eGFR was calculated using the CKD-EP I equation. As with all creatinine based estimates of kidney function, eGFR values calculated with the CKD-EPI equation are not accurate in patients wi th acute kidney failure, extremes of body mass or the acutely ill. [email or web address] eGFR 107 >=60 mL/min/1.73 m?? [facility] Comment: The eGFR was calculated using the CKD-EP I equation. As with all creatinine based estimates of kidney function, eGFR values calculated with the CKD-EPI equation are not accurate in patients wi th acute kidney failure, extremes of body mass or the acutely ill. [email or web address] Specimen Anatomical Collection Method Collection Time Receive d Time (Source) Location / / Volume Laterality Blood specimen Venous Draw / 10/08/2019 7:14 AM 2018 7:27 (specimen) Unknown EST AM EST Resulting Agency Comment Spec In Lab Natty Mckinney MD CHEMISTRY ORDERABLES Performing Organization Address City/State/ZIP [place] [address] (ABNORMAL) Differential, Automated (10/08/2019 7:14 AM EST) Patholo gist Method Time Signature Neutrophils % 80.5 % [facility] Neutr Abs (ANC) 9.70 (H) 1.70 - [facility] 6.10 [facility] x10(3)/[facility] LABORATORY Lymphocytes % 10.9 % [facility] Lymphocytes Abs 1.3 0.9 - [address].2 [facility] x10(3)/[facility] LABORATORY Monocytes % 5.8 % [facility] Monocyte Abs 0.7 0.3 - 0.9 [facility] x10(3)/[facility] LABORATORY Eosinophils % 0.7 % [facility] Eosinophils Abs 0.1 0.0 - 0.4 [facility] x10(3)/[facility] LABORATORY Basophils % 0.4 % [facility] Basophils Abs 0.0 0.0 - 0.1 [facility] x10(3)/[facility] LABORATORY Immature Gran % 1.70 % [facility] Comment: Immature granulocytes(IG's)percentage an d absolute count will include metamyelocytes, myelocytes, and promyelo cytes. Blood smears from CBCs yielding IG's will be scanned manually for concor dance. If this scan disagrees with the automated IG or if promyelocytes are not ed, a manual differential will be performed. Marisol Gran Abs 0.21 (H) 0.00 - 0.04 x10(3)/[facility] LABORATORY Specimen Anatomical Collection Method Collection Time Receive d Time (Source) Location / / Volume Laterality Blood specimen 10/08/2019 7:14 AM 019 7:27 (specimen) EST AM EST Resulting Agency Comment Spec In Lab Natty Mckinney MD HEMATOLOGY ORDERABLES Performing Organization Address City/State/ZIP [place] [address] (ABNORMAL) Hemogram (10/08/2019 7:14 AM EST) Analysis Performed At Patho logist Time Signature WBC 12.1 (H) 4.0 - 9.5 [facility] x10(3)/[facility] LABORATORY RBC 4.53 (L) 4.58 - [facility] [place]LLCOCK 5.54 [facility] x10(6)/[facility] LABORATORY Hemoglobin 14.2 13.7 - [facility] COOKPARKER 16.5 gm/dL [facility] Hematocrit 43.8 40.5 - [facility] [place] 48.5 % [facility] MCV 96.7 (H) 82.9 - [facility] PARKER 93.1 [facility] LABORATORY MCH 31.3 27.5 - [facility] 32.1 pg [facility] MCHC 32.4 32.0 - [facility] 35.7 gm/dL [facility] Platelets 221 145 - 357 [facility] x10(3)/[facility] LABORATORY RDWSD 46.5 (H) 36.0 - [facility] 45.0 [facility] LABORATORY RDWCV 13.1 11.4 - [facility] 13.8 % [facility] MPV 10.6 7.6 - 12.9 [facility] LABORATORY nRBC % Auto 0.0 % [facility] nRBC Abs Auto 0.000 0.000 - [facility] PARKER 0.000 [facility] x10(3)/[facility] LABORATORY Specimen Anatomical Collection Method Collection Time Receive d Time (Source) Location / / Volume Laterality Blood specimen 10/08/2019 7:14 AM 019 7:27 (specimen) EST AM EST Resulting Agency Comment Spec In Lab Natty Mckinney MD HEMATOLOGY ORDERABLES Performing Organization Address City/State/ZIP [place] [address] (ABNORMAL) Vitamin A (10/08/2019 7:14 AM EST) P athologist Signature Vitamin A 87.6 (H) 32.5 - 78.0 [facility] mcg/dL [facility] Comment: ADDITIONAL INFORMATIO N This test was developed and its performa nce characteristics determined by [facility] in a manner co nsistent with CLIA requirements. This test has not been jerry ared or approved by the U.S. Food and Drug Administration. Test Performed by: Formerly named [facility] [address] [address] 90 Driller Hand: Valente Romero M.D. Ph. D.; CLIA# [id number] Specimen Anatomical Collection Method Collection Time Receive d Time (Source) Location / / Volume Laterality Blood specimen 10/08/2019 7:14 AM 019 (specimen) EST 10:36 AM EST Resulting Agency Comment Spec In Lab Natty Mckinney MD CHEMISTRY ORDERABLES Performing Organization Address City/State/ZIP Code Phon e Number [address] Magnesium (10/08/2019 7:14 AM EST) athologist Signature Magnesium 0.87 0.69 - 1.07 [facility] mmol/L [facility] Specimen Anatomical Collection Method Collection Time Receive d Time (Source) Location / / Volume Laterality Blood specimen 10/08/2019 7:14 AM 019 7:27 (specimen) EST AM EST Resulting Agency Comment Spec In Lab Natty Mckinney MD CHEMISTRY ORDERABLES Performing Organization Address City/[facility]/[place] [address] CK (10/08/2019 7:14 AM EST) P athologist Signature CK, Total 59 0 - 200 [facility] unit/[facility] Specimen Anatomical Collection Method Collection Time Receive d Time (Source) Location / / Volume Laterality Blood specimen 10/08/2019 7:14 AM 019 7:27 (specimen) EST AM EST Resulting Agency Comment Spec In Lab Natty Mckinney MD CHEMISTRY ORDERABLES Performing Organization Address City/[facility]/ZIP Code Phon e Number [address] Sedimentation rate (10/08/2019 7:14 AM EST) athologist Signature Sed Rate 5 0 - 15 [facility] mm/hr [facility] Specimen Anatomical Collection Method Collection Time Receive d Time (Source) Location / / Volume Laterality Blood specimen 10/08/2019 7:14 AM 019 7:27 (specimen) EST AM EST Resulting Agency Comment Spec In Lab Natty Mckinney MD HEMATOLOGY ORDERABLES Performing Organization Address City/[facility]/ZIP Code Phon e Number [place] [phone] [facility] Drive Vitamin B1, whole blood (10/08/2019 7:14 AM EST) athologist Signature Vit B1 Lvl WB 177 70 - 180 [facility] nmol/L [facility] Comment: ADDITIONAL INFORMATIO N This test was developed and its performa nce characteristics determined by [facility] in a manner co nsistent with CLIA requirements. This test has not been jerry ared or approved by the U.S. Food and Drug Administration. Test Performed by: [facility] [address] [address] Driller Hand: Valente Romero M.D. Ph. D.; CLIA# [id number] Specimen Anatomical Collection Method Collection Time Receive d Time (Source) Location / / Volume Laterality Blood specimen 10/08/2019 7:14 AM 019 8:35 (specimen) EST AM EST Resulting Agency Comment Spec In Lab Natty cMkinney MD CHEMISTRY ORDERABLES Performing Organization Address City/[facility]/[place] [address] documented in this encounter Visit Diagnoses Diagnosis Stomach ache Dyspepsia and other specified disorders of function of stomach Epidemic vomiting syndrome Ileostomy status documented in this encounter Care Teams Food Assembler Kitchen Relationship Specialty Start Date End Date Natty Mckinney MD PCP - General 10/11/10 [address] [place] [address] documented as of this encounter
--- OUTSIDE RECORDS SUMMARY | 2022-09-22 00:42 | XMS_ITS | Encounter Summary ---
:1965 Author Organization [facility] [place] [address] Care Team Providers Name Role Phone Natty Mckinney MD Primary Care Provider Reason for Referral Consultation (Routine) - Closed Specialty Diagnoses / Procedures Referred By Contact Refer red To Contact Radiation Oncology Diagnoses Malignant neoplasm of prostate Daniele Seals Stj Rad Onc Treatment MD [address] [place] [address] UROLOGY [address] [place] [address] Referral ID Status Reason Start Date Expiration Date Visits V isits Requested Authorized [id number] Closed Consult, 12/03/2019 12/02/2020 1 1 Test & Treat Encounter Details Date Type Department Care Team Description 12/03/2019 Orders Only Urology at [facility] Daniele Seals Malignant neoplasm of [facility] [place] [address] UROLOGY [phone] [place], [place] [address] (Wo rk) Social History Tobacco Use Types Packs/Day Years Used Date Never Assessed Sex Assigned at Date Recorded Not on file documented as of this encounter Progress Notes Daniele Seals MD - 12/03/2019 8:41 AM EST I called to review tumor board recs for either extraperitoneal RP or XRT. He has concerns about having more surgery d/t his history and would like to meet with radiation oncology first to discuss options. If he decides that he is more interested in surgery then I will have him meet with my partner,Dr. Dias to discuss extraperitoneal RP. documented in this encounter Plan of Treatment Upcoming Encounters Date Type Specialty Care Team Description 09/28/2022 Office Visit Radiation Oncology Natty Lawton, MARIA ELENA [facility] RADIATION ONCSHAYLA [place], [place] [address] (Wo rk) Scheduled Referrals Name Type Priority Associated Diagnoses Order S chedule Referral to Outpatient Referral Routine Malignant neoplasm Or dered: Radiation Oncology of prostate 0 documented as of this encounter Visit Diagnoses Diagnosis Malignant neoplasm of prostate documented in this encounter Care Teams Potato Inspector Relationship Specialty Start Date End Date Natty Mckinney MD PCP - General 10/11/10 [address] [place] [address] documented as of this encounter
--- OUTSIDE RECORDS SUMMARY | 2022-09-22 00:42 | XMS_ITS | Encounter Summary ---
:1965 Author Organization [facility] [place] [address] Care Team Providers Name Role Phone Natty Mckinney MD Primary Care Provider Encounter Details Date Type Department Care Team Description 01/06/2020 Telephone Radiation Oncology a t [facility] Arun Lyle [address] [place] [address] [phone] Social History Tobacco Use Types [...] Office Visit Radiation Oncology Natty Lawton APRN [facility] RADIATION ONCSHAYLA [place], [place] [address] (Wo rk) documented as of this encounter Visit Diagnoses Not on filedocumented in this encounter Care Teams Nuclear Radiation Engineer Relationship Specialty Start Date End Date Natty Mckinney MD PCP - General 10/11/10 [address] [place] [address] documented as of this encounter
--- OUTSIDE RECORDS SUMMARY | 2022-09-22 00:42 | XMS_ITS | Encounter Summary ---
:1965 Author Organization [facility] [place] [address] Care Team Providers Name Role Phone Natty Mckinney MD Primary Care Provider Encounter Details Date Type Department Care Team Description 12/22/2019 Orders Only Radiology at [facility] Norman De Oliveira DO [facility] D [facility] [place] [address] RADIOLOGY DEPT [phone] [place], [place] [address] (Wo rk) Social History Tobacco [...] Office Visit Radiation Oncology Natty Lawton APRN [facility] RADIATION ON[place]AYLA [place], [place] [address] (Wo rk) documented as of this encounter Visit Diagnoses Not on filedocumented in this encounter Care Teams It Consulting Director Relationship Specialty Start Date End Date Natty Mckinney MD PCP - General 10/11/10 [address] [place] [address] documented as of this encounter
--- OUTSIDE RECORDS SUMMARY | 2022-09-22 00:42 | XMS_ITS | Encounter Summary ---
:1965 Author Organization [facility] [place] [address] Care Team Providers Name Role Phone Natty Mckinney MD Primary Care Provider Encounter Details Date Type Department Care Team Description 03/15/2020 Procedure visit Radiation Oncology Santiago Arroyo M alignant neoplasm at [facility] MD of prostate [address] [place], [place] RADIATION ONCOL OGY [address] [place], [place] [phone] Social History Tobacco Use Types Packs/Day Years [...] Sign Reading Time Taken Comments Blood Pressure 101/62 03/15/2020 8:12 AM EDT Pulse 72 03/15/2020 8:12 AM EDT Temperature - - Respiratory Rate 16 03/15/2020 8:12 AM EDT Oxygen Saturation 100% 03/15/2020 8:12 AM EDT Inhaled Oxygen Concentration - - Weight - - Height - - Body Mass Index - - documented in this encounter Progress Notes Santiago Arroyo MD - 03/15/2020 8:30 AM EDT Radiation Oncology visit note PATIENT IDENTIFICATION Diagnosis Cancer Staging Malignant neoplasm of prostate Staging form: Prostate, AJCC 8th Edition - Clinical: Stage Unknown (cTX, cN0, cM0, PSA: 7.2, Grade Group: 1) - Signed by Santiago Arroyo MDon 12/16/2019 INTENT OF THERAPY: Definitive (Curative) RADIATION TREATMENT DETAILS: Treatment Site Prostate Prescribed Dose 36.25 Gy in 5 fractions Current Dose: 14.5 Gy in 2 fractions INTERVAL HISTORY Subjective: General - No changes since last seen. - No new nocturia / dysuria. On average uses restroom 1x/nt. Prostate IPSS and BALDEV(Pt Entered): last 5 values Prostate Today's Scores 09/08/2019 12/22/2019 Sexual Health Inventory for Men 24 25 International Prostate Symptom Score 15 (Moderate LUTS) 3 ( Mild LUTS) Pain: Pain score today is 0/10. MEDS Medications 03/15/20 0816 Medication Sig Taking? celecoxib (CeleBREX) 200 mg [...] Tablet(s), PO, Three times daily EXAM: BP 101/62 Pulse 72 Resp 16 SpO2 100% Constitutional: he appears well-developed and well-nourished. No [...] Impression: Patient presents prior to treatment with third fraction of SBRT to the prostate. Plan: Continue with SBRT today. POST TREATMENT NOTE: I directly observed and supervised today's treatment from the radiation therapy console, which consisted of pretreatment imaging for setup, cone-beam CT for verification and intrafraction monitoring using the Marker-Match real time fiducial IGRT treatment system. Krishan tolerated treatment with no concerns. He will return on Sunday for his 4th fraction. documented in this encounter Plan of Treatment Upcoming Encounters Date Type Specialty Care Team Description 09/28/2022 Office Visit Radiation Oncology Natty Lawton APRN [facility] RADIATION ONCSHAYLA [place], [place] [address] (Wo rk) documented as of this encounter Visit Diagnoses Diagnosis Malignant neoplasm of prostate documented in this encounter Care Teams Sanitation Worker Cleaning Machinery Relationship Specialty Start Date End Date Natty Mckinney MD PCP - General 10/11/10 [address] [place] [address] documented as of this encounter
--- OUTSIDE RECORDS SUMMARY | 2022-09-22 00:42 | XMS_ITS | Encounter Summary ---
:1965 Author Organization [facility] [place] [address] Care Team Providers Name Role Phone Natty Mckinney MD Primary Care Provider Encounter Details Date Type Department Care Team Description 03/10/2020 Procedure visit Radiation Oncology Santiago Arroyo M alignant neoplasm at [facility] MD of prostate [address] [place], [place] RADIATION ONCOL OGY [address] [place], [place] [phone] Social History Tobacco Use Types Packs/Day Years [...] Sign Reading Time Taken Comments Blood Pressure - - Pulse - - Temperature 36 ??C (96.8 ??F) 03/10/2020 1:57 PM EDT Respiratory Rate - - Oxygen Saturation - - Inhaled Oxygen Concentration - - Weight - - Height - - Body Mass Index - - documented in this encounter Progress Notes Santiago Arroyo MD - 03/10/2020 2:15 PM EDT Images from the original note were not included. RADIATION ONCOLOGY - SBRT Pre-Treatment Visit Note 03/07/20 Santiago Arroyo MD Radiation Oncology [facility] [phone] (paging chalk molding machine operator) PATIENT IDENTIFICATION Name Krishan Monte Date of 1965 PCP Natty Mckinney MD Referring MD (if different) Dr. Seals Diagnosis Cancer Staging Malignant neoplasm of prostate Staging form: Prostate, AJCC 8th Edition - Clinical: Stage Unknown (cTX, cN0, cM0, PSA: 7.2, Grade Group: 1) - Signed by Santiago Arroyo MDon 12/16/2019 INTENT OF THERAPY: Definitive (Curative) RADIATION TREATMENT DETAILS: Treatment Site Prostate Prescribed Dose 36.25 Gy in 5 fractions Current Dose: 0 Gy in 0 fractions INTERVAL HISTORY Subjective: General - No changes since last seen. Starts today. - No new nocturia / dysuria. On average uses restroom 1x/nt. [place]ner of IPSS as below: Prostate IPSS and BALDEV(Pt Entered): last 5 values Prostate Today's Scores 09/08/2019 12/22/2019 Sexual Health Inventory for Men 24 25 International Prostate Symptom Score 15 (Moderate LUTS) 3 ( Mild LUTS) Pain: Pain score today is 0/10. MEDS Medications 01/28/20 1424 Medication Sig Taking? ciprofloxacin (Cipro) 500 mg Tablet Take 500 [...] 4 Tablet(s), PO, Three times daily EXAM: Temp 36 ??C (96.8 ??F) (Temporal) Comment (Src): temp checked immediately upon arrival to clinic Constitutional: he appears well-developed and well-nourished. No [...] Impression: Patient presents prior to treatment with first fraction of SBRT to the prostate. Plan: Continue with SBRT today. POST TREATMENT NOTE: I directly observed and supervised today's treatment from the radiation therapy console, which consisted of pretreatment imaging for setup, cone-beam CT for verification and intrafraction monitoring using the Marker-Match real time fiducial IGRT treatment system. Krishan tolerated treatment with no concerns and will return for his second fraction on Sunday. documented in this encounter Plan of Treatment Upcoming Encounters Date Type Specialty Care Team Description 09/28/2022 Office Visit Radiation Oncology Natty Lawton APRN [facility] RADIATION ONCSHAYLA [place], [place] [address] (Wo rk) documented as of this encounter Visit Diagnoses Diagnosis Malignant neoplasm of prostate documented in this encounter Care Teams Hanging Flags Decorator Relationship Specialty Start Date End Date Natty Mckinney MD PCP - General 10/11/10 [address] [place] [address] documented as of this encounter
--- OUTSIDE RECORDS SUMMARY | 2022-09-22 00:42 | XMS_ITS | Encounter Summary ---
:1965 Author Organization [facility] Address [address] [place] [address] Care Team Providers Name Role Phone Natty Mckinney MD Primary Care Provider Encounter Details Date Type Department Care Team Description 10/14/2019 Orders Only Urology at [facility] Daniele Seals MD [facility] [place] [address] UROLOGY [phone] [place], [place] [address] (Wo rk) Social History Tobacco Use Types Packs/Day Years Used Date Never Assessed Sex Assigned at Date Recorded Not on file documented as of this encounter Progress Notes Daniele Seals MD - 10/14/2019 5:28 PM EST I called to review CT guided biopsy results that found only Riva 3+3 disease. I discussed my concerns of understaging based on his MRI as well as my concerns for surveillance considering prior APR and young age. I will plan to review with our tumor board and make will call with recs. documented in this encounter Plan of Treatment Upcoming Encounters Date Type Specialty Care Team Description 09/28/2022 Office Visit Radiation Oncology Natty Lawton APRN [facility] [place] [place] [address] (Wo rk) documented as of this encounter Visit Diagnoses Not on filedocumented in this encounter Care Teams Rotogravure Press Operator Relationship Specialty Start Date End Date Natty Mckinney MD PCP - General 10/11/10 [address] [place] [address] documented as of this encounter
--- OUTSIDE RECORDS SUMMARY | 2022-09-22 00:42 | XMS_ITS | Encounter Summary ---
:1965 Author Organization [facility] [place] [address] Care Team Providers Name Role Phone Natty Mckinney MD Primary Care Provider Reason for Visit Consultation (Routine) - Closed Specialty Diagnoses / Procedures Referred By Contact Refer red To Contact Radiation Oncology Diagnoses Malignant neoplasm of prostate Santiago Arroyo MD [facility] Rad Onc Office Procedures Simulation for Radiation Therapy Planning [address] [place] [address] [place] [id number] Referral ID Status Reason Start Date Expiration Date Visits V isits Requested Authorized [id number] Closed Consult, 12/22/2019 12/21/2020 1 1 Test & Treat Encounter Details Date Type Department Care Team Description 01/28/2020 Ancillary Appointment Radiation Oncology at [facility] MD [address] [place] [address] RADIATION ONCOL OGY [address] [place], [place] [phone] (Wo rk) Social History Tobacco Use Types [...] on file documented as of this encounter Patient Instructions Patient InstructionsTamara Boone RN - 01/28/2020 2:30 PM EDT Patient Education: ?? You are scheduled for radiation treatment using SBRT (steriotactic body radiation therapy) to treat prostate cancer. ?? Please arrive 30 minutes prior to your scheduled treatment time and check in with the Ore Washer ?? You will have your vital signs checked, your allergies and medications will be reviewed and your doctor will see you briefly before the treatment to make sure you are well and it is safe to deliver the treatment. ?? Possible side effects of radiation include the following: ?? skin changes (redness, itching) ?? fatigue (during treatment and after treatment for 1-2 months). Walking 20-30 minutes daily can help relieve treatment ?? Wash the treatment area with a mild soap (no fragrance) and pat dry daily. ?? Apply skin care products as instructed by the nurse and/or doctor documented in this encounter Progress Notes Santiago Arroyo MD - 01/28/2020 2:30 PM EDT Simulation Note for External Beam Radiation Treatment Planning [facility] Mark Monte is a 54 y.o. year old male with low risk prostate cancer who was simulated for definitive SBRT to the prostate today. No changes were made from the plan as documented in the original simulation order and instructions. After confirming informed consent, a retrograde urethrogram was performed using a small amount of contrast dye, and then a 2.5mm slice thickness CT scan of the patient's pelvis was obtained. This scan was performed to delineate both target volumes and organs/structures at risk. These images will be used to create a customized treatment plan employing multileaf collimators and beams-eye view to treat the target to prescription dose while maximally sparing organs at risk, with the overall goal of maximizing the likelihood of a favorable disease response while minimizing the likelihood of any short term side effects or correction complications of therapy. I anticipate his SBRT prescription dose will be 36.25 Gy to the prostate, delivered in five fractions over the course of 2.5 weeks. Anticipate therapy to begin within the next 10 days. The patient tolerated this procedure well, and was provided instructions with regard to upcoming appointments. documented in this encounter Plan of Treatment Upcoming Encounters Date Type Specialty Care Team Description 09/28/2022 Office Visit Radiation Oncology Natty Lawton, [facility] RADIATION ONCSHAYLA [place], [place] [address] (Wo rk) documented as of this encounter Visit Diagnoses Not on filedocumented in this encounter Care Teams Jack Prizer Relationship Specialty Start Date End Date Natty Mckinney MD PCP - General 10/11/10 [address] [place] [address] documented as of this encounter
--- OUTSIDE RECORDS SUMMARY | 2022-09-22 00:42 | XMS_ITS | Encounter Summary ---
:1965 Author Organization [facility] [place] [address] Care Team Providers Name Role Phone Natty Mckinney MD Primary Care Provider Reason for Referral Diagnostic Test (Routine) - Closed Specialty Diagnoses / Procedures Referred By Contact Refer red To Contact Radiology Diagnoses Elevated PSA Daniele Seals MD [facility] Rad Mri Procedures MRI Pelvis wwo (Prostate) [place] [address] [place] [address] Referral ID Status Reason Start Date Expiration Date Visits V isits Requested Authorized [id number] Closed Specialty 09/08/2019 09/07/2020 1 1 Service Requested Reason for Visit Diagnostic Test (Routine) - Closed Specialty Diagnoses / Procedures Referred By Contact Refer red To Contact Radiology Diagnoses Elevated PSA Daniele Seals MD [facility] Rad Mri Procedures MRI Pelvis wwo (Prostate) [place] [address] [place] [address] Referral ID Status Reason Start Date Expiration Date Visits V isits Requested Authorized [id number] Closed Specialty 09/08/2019 09/07/2020 1 1 Service Requested Encounter Details Date Type Department Care Team Description 09/23/2019 Hospital Encounter MRI at [facility] Daniele Seals, Elevated PSA [facility] [place] [address] UROLOGY [place], [place] [address] (Wo rk) Social History Tobacco [...] 09/28/2022 Office Visit Radiation Oncology Natty Lawton, [facility] RADIATION ONCOLO GY [place], [place] [address] (Wo rk) documented as of this encounter Procedures Procedure Name Priority Date/Time Associated Diagnosis Comme nts MRI PELVIS WWO Routine 09/23/2019 6:13 PM Elevated PSA Results for this (PROSTATE) EST procedure are i n the results section. documented in this encounter Results MRI Pelvis wwo (Prostate) (09/23/2019 6:13 PM EST) Anatomical Region Laterality Modality Pelvis Magnetic Resonance Specimen (Source) Anatomical Location Collection Method / Collectio n Time Received Time / Laterality Volume Impressions 09/26/2019 2:04 PM EST Lesion 1 PZ: PI-RADS 5. Clinically signi ficant cancer is highly likely to be present. T2 location: axial series 8, im age 20; sagittal ??series 4, image 21. Segmented in UroNav. PI-RADS v2.1 Assessment Categories PI-RADS 1 -- Very low (clinically signif icant cancer is highly unlikely to be present) PI-RADS 2 -- Low (clinically significant cancer is unlikely to be present) PI-RADS 3 -- Intermediate (the presence of clinically significant cancer is equivocal) PI-RADS 4 -- High (clinically significan t cancer is likely to be present) PI-RADS 5 -- Very high (clinically signi ficant cancer is highly likely to be present) Thank you for letting us participate in the care of this patient. For questions regarding this report, please contact e number below. ? Narrative 09/26/2019 2:04 PM EST EXAMINATION: MRI PELVIS WWO (PROSTATE) CLINICAL HISTORY: Elevated PSA, low perc ent free and family history, no rectum so can not have TRUS Bx, please evaluate for risk of prostate cancer. PSA level: 6.5 Date of sextant biopsy:N/A [place] score : N/A TECHNIQUE: Multiparametric MRI of the pr ostate prior to and following IV administration of 14 cc of Dotarem contr ast. ?? QUALITY: Meets PI-RADS technical criteri a. COMPARISON: None FINDINGS: Prostate dimensions: 4.2 x 4.2 x 3.8cm. Estimated prostate volume: 29.22cc (X x Y x Z x 0.52) PSA density: 0.22 (PSA/prostate volume > 0.15 susp, 0.25 highly susp) Peripheral zone: Lesion 1. Right mid gland and right base posterior and posterolateral peripheral zone. T2: Circumscribed, homogenous moderately hypointense focus confined to prostate, 3 x 1.4 cm axially, 1.2 cm craniocaudall y. PI-RADs: 5. DWI: ??Focal markedly hypointense on ADC and markedly hyperintense on high b-value DWI; =1.5cm in greatest dimensio n or definite extraprostatic extension/invasive behavior. PI-RADs: 5. DCE-MRI: (+) focal early enhancement whi ch corresponds to the suspicious finding on T2WI and/or DWI. ?? Combined PI-RADs: 5. Transition zone: T2: Homogeneous interme diate signal intensity (normal) . No focal lesions. Combined PI-RADs: 1. Extraprostatic disease: Seminal vesicle involvement:No Lymphadenopathy:No Sphincter involvement:No Bladder involvement:No Osseous metastases: No . Extraprostatic extension: No Other findings: The rectum is absent. Procedure Note Fabio Gomez MD - 09/26/2019For matting of this note might be different from the original. EXAMINATION: MRI PELVIS WWO (PROSTATE) CLINICAL HISTORY: Elevated PSA, low perc ent free and family history, no rectum so can not have TRUS Bx, please evaluate for risk of prostate cancer. PSA level: 6.5 Date of sextant biopsy:N/A [place] score : N/A TECHNIQUE: Multiparametric MRI of the pr ostate prior to and following IV administration of 14 cc of Dotarem contr ast. QUALITY: Meets PI-RADS technical criteri a. COMPARISON: None FINDINGS: Prostate dimensions: 4.2 x 4.2 x 3.8cm. Estimated prostate volume: 29.22cc (X x Y x Z x 0.52) PSA density: 0.22 (PSA/prostate volume > 0.15 susp, 0.25 highly susp) Peripheral zone: Lesion 1. Right mid gland and right base posterior and posterolateral peripheral zone. T2: Circumscribed, homogenous moderately hypointense focus confined to prostate, 3 x 1.4 cm axially, 1.2 cm craniocaudall y. PI-RADs: 5. DWI: Focal markedly hypointense on ADC a nd markedly hyperintense on high b-value DWI; =1.5cm in greatest dimensio n or definite extraprostatic extension/invasive behavior. PI-RADs: 5. DCE-MRI: (+) focal early enhancement whi ch corresponds to the suspicious finding on T2WI and/or DWI. Combined PI-RADs: 5. Transition zone: T2: Homogeneous interme diate signal intensity (normal) . No focal lesions. Combined PI-RADs: 1. Extraprostatic disease: Seminal vesicle involvement:No Lymphadenopathy:No Sphincter involvement:No Bladder involvement:No Osseous metastases: No . Extraprostatic extension: No Other findings: The rectum is absent. IMPRESSION Lesion 1 PZ: PI-RADS 5. Clinically signi ficant cancer is highly likely to be present. T2 location: axial series 8, im age 20; sagittal series 4, image 21. Segmented in UroNav. PI-RADS v2.1 Assessment Categories PI-RADS 1 -- Very low (clinically signif icant cancer is highly unlikely to be present) PI-RADS 2 -- Low (clinically significant cancer is unlikely to be present) PI-RADS 3 -- Intermediate (the presence of clinically significant cancer is equivocal) PI-RADS 4 -- High (clinically significan t cancer is likely to be present) PI-RADS 5 -- Very high (clinically signi ficant cancer is highly likely to be present) Thank you for letting us participate in the care of this patient. For questions regarding this report, please contact e number below. Electronically signed by: Fabio Craven [facility] ([phone]), at 09/26/2019 2:04 PM Daniele Seals MD IM MRI ORDERABLES documented in this encounter Visit Diagnoses Diagnosis Elevated PSA Elevated prostate specific antigen (PSA) documented in this encounter Administered Medications Inactive Administered Medications - up to 3 most recent administrations Medication Order MAR Action Action Date Dose Rate Site gadoterate meglumine (DOTAREM) 0.5 Given 09/23/2019 6:00 PM EST 14 mLs mmol/mL (376.9 mg/mL) injection 0-100 mL 0-100 mL, Intravenous, ONCE PRN, 1 dose, Starting on Sun09/23/19 at 1814, Until Sun09/23/19 at 1800, Per Protocol, Radiology Contrast, Routine documented in this encounter Care Teams Systems Auditor Relationship Specialty Start Date End Date Natty Mckinney MD PCP - General 10/11/10 [address] [place] [address] documented as of this encounter
--- OUTSIDE RECORDS SUMMARY | 2022-09-22 00:42 | XMS_ITS | Encounter Summary ---
:1965 Author Organization [facility] [place] [address] Care Team Providers Name Role Phone Natty Mckinney MD Primary Care Provider Encounter Details Date Type Department Care Team Description 03/16/2020 Telephone Radiation Oncology a [facility] Arun Lyle [address] [place] [phone] Social History Tobacco Use Types [...] this encounter Miscellaneous Notes Telephone Encounter - Arun Lyle - 03/16/2020 12:08 PM EDT JORDYN for pt with the screening questions for COVID-19. I asked the pt to call us with his answers. documented in this encounter Plan of Treatment Upcoming Encounters Date Type Specialty Care Team Description 09/28/2022 Office Visit Radiation Oncology Natty Lawton, CLOTH HANDLER [facility] RADIATION ONCSHAYLA [place], [place] [address] (Wo rk) documented as of this encounter Visit Diagnoses Not on filedocumented in this encounter Care Teams Innovation Manager Relationship Specialty Start Date End Date Natty Mckinney MD PCP - General 10/11/10 [address] [place] [address] documented as of this encounter
--- OUTSIDE RECORDS SUMMARY | 2022-09-22 00:42 | XMS_ITS | Encounter Summary ---
:1965 Author Organization [facility] Address [address] [place] [address] Care Team Providers Name Role Phone Natty Mckinney MD Primary Care Provider Encounter Details Date Type Department Care Team Description 09/26/2019 Telephone Urology at [facility] Daniele Seals MD [facility] [place] [address] UROLOGY [phone] [place] [address]375 (Wo rk) Social History Tobacco Use Types Packs/Day Years Used Date Never Assessed Sex Assigned at Date Recorded Not on file documented as of this encounter Miscellaneous Notes Telephone Encounter - Isha Salcido - 09/26/2019 1:57 PM EST Patient called looking for MRI results. He can be reached at [phone]. He is aware that Dr. Seals is not in clinic today, but states Dr. Seals can just leave a voicemail. documented in this encounter Plan of Treatment Upcoming Encounters Date Type Specialty Care Team Description 09/28/2022 Office Visit Radiation Oncology Natty Lawton APRN [facility] ER RADIATION ONCSHAYLA [place] 0375 (Wo rk) documented as of this encounter Visit Diagnoses Not on filedocumented in this encounter Care Teams Programming Manager Relationship Specialty Start Date End Date Natty Mckinney MD PCP - General 10/11/10 [address] [place] [address] documented as of this encounter
--- OUTSIDE RECORDS SUMMARY | 2022-09-22 00:42 | XMS_ITS | Encounter Summary ---
:1965 Author Organization [facility] Address [address] [place] [address] Care Team Providers Name Role Phone Natty Mckinney MD Primary Care Provider Encounter Details Date Type Department Care Team Description 10/01/2019 Telephone Urology at [facility] Daniele Seals MD [facility] [place] [address] UROLOGY [phone] [place], [place] [address] (Wo rk) Social History Tobacco Use Types Packs/Day Years Used Date Never Assessed Sex Assigned at Date Recorded Not on file documented as of this encounter Miscellaneous Notes Telephone Encounter - Arun Edwards - 10/01/2019 1:03 PM EST Spoke with pt to inform him of the CT guided prostate biopsy on 10/08/19, with arrival at 7:30 am. I did also inform him that a nurse will be calling him on Sunday with some additional information. documented in this encounter Plan of Treatment Upcoming Encounters Date Type Specialty Care Team Description 09/28/2022 Office Visit Radiation Oncology Natty Lawton, MARIA ELENA [facility] ER RADIATION ONCS[place]AYLA [place] 0375 (Wo rk) documented as of this encounter Visit Diagnoses Not on filedocumented in this encounter Care Teams Hogshead Liner Relationship Specialty Start Date End Date Natty Mckinney MD PCP - General 10/11/10 [address] [place] [address] documented as of this encounter
--- OUTSIDE RECORDS SUMMARY | 2022-09-22 00:42 | XMS_ITS | Encounter Summary ---
:1965 Author Organization [facility] Address [address] [place] [address] Care Team Providers Name Role Phone Natty Mckinney MD Primary Care Provider Encounter Details Date Type Department Care Team Description 03/14/2020 Telephone Radiation Oncology a [facility] Arun Lyle [address] [place] [phone] Social History Tobacco Use Types [...] Notes Telephone Encounter - Arun Lyle - 03/14/2020 3:37 PM EDT LM on with the screening questions. Asked pt to call the office an leave a msg with the answers to the questions and that if he developed any symptoms to give us a call. documented in this encounter Plan of Treatment Upcoming Encounters Date Type Specialty Care Team Description 09/28/2022 Office Visit Radiation Oncology Natty Lawton, ASSISTANT CHIEF NURSING OFFICER [facility] RADIATION ONCSHAYLA [place], [place] [address] (Wo rk) documented as of this encounter Visit Diagnoses Not on filedocumented in this encounter Care Teams Service Technician Copier Relationship Specialty Start Date End Date Natty Mckinney MD PCP - General 10/11/10 [address] [place] [address] documented as of this encounter
--- OUTSIDE RECORDS SUMMARY | 2022-09-22 00:42 | XMS_ITS | Encounter Summary ---
:1965 Author Organization [facility] [place] [address] Care Team Providers Name Role Phone Natty Mckinney MD Primary Care Provider Reason for Visit Reason Onset Date Comments Pre Procedure Call 08/28/2019 Encounter Details Date Type Department Care Team Description 08/28/2019 Telephone Hematology and Oncology at [facility], Pre Procedure Call [facility] [place] [phone] Social History Tobacco Use Types Packs/Day Years Used Date Never Assessed Sex Assigned at Date Recorded Not on file documented as of this encounter Miscellaneous Notes Telephone Encounter - Nicole Eagle RN - 08/28/2019 3:05 PM EDT Reason for call: PSA clinic appointment on _09/08/19 at 0800___. Scheduled for Bx at this time? No, possible add on Meds/Allergies: NKA Anticoagulant medications: (Coumadin, Plavix, ASA, NSAIDS) No If yes instruct pt to contact PCP or prescribing physician for further instruction as to discontinuing and restarting anti-coagulant therapy for Biopsy. If unable to discontinue medication as per PCP pt to keep appointment and if biopsy warranted will be scheduled for a later date with bridging. Review OTC, herbal and vitamin supplements for potential anti-coag effect: (ginko biloba, venkat, fever few, garlic, herbal teas with supplements added, Vit C,) No If yes and pt started: pt to stop supplements for 1 week prior and 1 week after biopsy. Labs: Free PSA (must be at least 10 days prior to clinic) Yes, 09/08/19, 0.6, 10% Most recent PSA result and date 09/08/19, 6.38 Have all labs faxed to Urology office (fax # [phone]). Patient Hx: Leaky heart valve, artifical heart valve, hx of heart attack and/or problems No Artifical Joint Replacement No Family history of prostate cancer: Yes, father Anyone in household work in healthcare? No Antibiotic use in the past 6 months? Yes Travel outside the [place] in the past 6 months No Other Instructed to hold NSAIDs for 7 days prior to appointment. Will have labs drawn upon arrival for appointment. Patient Instructions/Information: Patient does not need to be NPO for biopsy. Patient to purchase Fleet Enema and use according to directions the morning of appointment if pt agreeable to have biopsy if offered at this appointment. If patient chooses to reschedule biopsy for a later date then no enema needed. Patient will meet with provider to discuss lab results and have a RACHAEL to determine need for biopsy. Registration is at Hem/Onc salon receptionist on 3rd floor. Patient understands and is able to verbalize back to this nurse the above information. Patient agrees to the POC, knows when and how to call if need arises. documented in this encounter Plan of Treatment Upcoming Encounters Date Type Specialty Care Team Description 09/28/2022 Office Visit Radiation Oncology Natty Lawton APRN [facility] RADIATION ONCSHAYLA [place], [place] [address] (Wo rk) documented as of this encounter Results (ABNORMAL) PSA, total and free (09/08/2019 7:52 AM EDT) Analysis Performed At Patho logist Time Signature PSA Total 6.38 (H) 0.00 - [facility] (Ultrasensitiv 4.00 ng/mL [facility] LABORATORY PSA Free 0.6 ng/mL [facility] PSA % Free 10 % [facility] Comment: Probability of finding DEVELOPMENT COORDINATOR on needle bio psy by age in [...] Seals MD CHEMISTRY ORDERABLES Performing Organization Address City/State/[facility] [place] [address] documented in this encounter Visit Diagnoses Diagnosis Elevated PSA Elevated prostate specific antigen (PSA) documented in this encounter Care Teams Diesel Mechanic Helper Relationship Specialty Start Date End Date Natty Mckinney MD PCP - General 10/11/10 [address] [place] [address] documented as of this encounter
--- OUTSIDE RECORDS SUMMARY | 2022-09-22 00:42 | XMS_ITS | Encounter Summary ---
:1965 Author Organization [facility] Address [address] [place] [address] Care Team Providers Name Role Phone Natty Mckinney MD Primary Care Provider Encounter Details Date Type Department Care Team Description 01/28/2020 Notes Only Radiation Oncology at [facility] OFFICE OF CARE [address] [place] [phone] Social History Tobacco Use Types Packs/Day Years [...] documented as of this encounter Progress Notes Nancy Sandoval MSW - 01/28/2020 4:11 PM EDT Reason for Referral: Brief assessment of social and emotional needs. Met with pt after his sim today. Social Supports: Pt identified his son who lives in the area and his daughter in [place] as his primary supports. Living Situation/Daily Activities/Transportation: Pt indicated he manages his daily chores and activities. He lives local and does not expect any issues with transportation. Work/Finances/Insurance: Pt is disabled. He has Medicare A & B for insurance. Gave him information to PFS at if he has Any questions re financial assistance. Advance Directives: Pt indicated he has completed his advance directive and requested a copy for hisrecord. Utilization of Community Resources: None at this time. Adjustment to Illness/Mental Health Issues: Pt indicated he has dealt with health challenges since he was A child. He is coping the best he can. He has support from his children. His daughter calls regularly and his son is local. He has a rescue dog which is a source of company and entertainment. Identified Needs: Pt did not identify any needs at this time. Referrals: None at this time. Plan: Informed pt of GENERAL LABORER availability and will follow for support and resources. documented in this encounter Plan of Treatment Upcoming Encounters Date Type Specialty Care Team Description 09/28/2022 Office Visit Radiation Oncology Natty Lawton APRN [facility] RADIATION ONCSHAYLA [place], [place] [address] (Wo rk) documented as of this encounter Visit Diagnoses Not on filedocumented in this encounter Care Teams Verifier Operator Relationship Specialty Start Date End Date Natty Mckinney MD PCP - General 10/11/10 [address] [place] [address] documented as of this encounter
--- OUTSIDE RECORDS SUMMARY | 2022-09-22 00:42 | XMS_ITS | Encounter Summary ---
:1965 Author Organization [facility] [place] [address] Care Team Providers Name Role Phone Natty Mckinney MD Primary Care Provider Reason for Referral Diagnostic Test (Routine) - Closed Specialty Diagnoses / Procedures Referred By Contact Refer red To Contact Radiology Diagnoses Elevated PSA Daniele Seals MD [facility] Rad Ct Scan Procedures CT Guided Biopsy Other [facility] [place] [address] [place] [address] Referral ID Status Reason Start Date Expiration Date Visits V isits Requested Authorized [id number] Closed Specialty 09/26/2019 09/25/2020 1 1 Service Requested Reason for Visit Diagnostic Test (Routine) - Closed Specialty Diagnoses / Procedures Referred By Contact Refer red To Contact Radiology Diagnoses Elevated PSA Daniele Seals MD [facility] Rad Ct Scan Procedures CT Guided Biopsy Other [facility] [place] [address] [place] [address] Referral ID Status Reason Start Date Expiration Date Visits V isits Requested Authorized [id number] Closed Specialty 09/26/2019 09/25/2020 1 1 Service Requested Encounter Details Date Type Department Care Team Description 10/08/[address] [place] [facility] [place]iele Seals, Elevated PSA [facility] [place] [address] UROLOGY [place], [place] [address] (Wo rk) Social History Tobacco Use Types Packs/Day Years Used Date Never Assessed Sex Assigned at Date Recorded Not on file documented as of this encounter Last Filed Vital Signs Vital Sign Reading Time Taken Comments Blood Pressure 113/66 10/08/2019 10:30 AM EST Pulse 78 10/08/2019 9:55 AM EST Temperature 37.2 ??C (99 ??F) 10/08/2019 7:00 AM EST Respiratory Rate 12 10/08/2019 9:55 AM EST Oxygen Saturation 95% 10/08/2019 10:30 AM EST Inhaled Oxygen Concentration - - Weight - - Height - - Body Mass Index - - documented in this encounter Discharge Instructions Discharge InstructionsMonica Montiel RN - 10/08/2019 10:30 AM EST [facility] Vascular and Interventional Radiology Biopsy Discharge Instructions ??? Liver, kidney or bone biopsy: call your doctor immediately if you develop a sudden onset of weakness, increased pain or swelling at the biopsy site or heavy bleeding at the biopsy site. ??? Lung biopsy: coughing up a little blood is common during the next 24 hours. If large blood clotscome up, or if the bleeding gets worse, you should contact us or your doctor immediately. The most common complication is collapse of the lung. The symptoms of lung collapse are increasing pain on breathing, often extending into the shoulder on the side of the biopsy, and increasing difficulty breathing. If these symptoms occur after you leave the hospital, have someone drive you to the nearest Emergency Department as it must be treated promptly or call 911. Activity And Diet: ??? Go home and rest quietly for the remainder of the day. You may resume your normal activities tomorrow. ??? Resume your usual diet after the procedure. ??? Do not drive, sign any important/legal documents, or make any important decisions for 24 hours following sedation medications. When to call your healthcare provider: ??? If you see any redness, swelling or drainage at the biopsy site. ??? If you develop chills. ??? If you have a fever greater than or equal to 101 degrees Fahrenheit. ??? If you develop pain around the biopsy site. Bandage: ??? Check the dressing/bandaid throughout the day for an increase in drainage. Keep the biopsy site dry for 24 hours. Replace the bandaid as needed. You may shower 24 hours after the biopsy. Medication: ??? DO NOT take aspirin-containing products, ibuprofen, or blood-thinning medication for the next 24hours unless your clinician says you may do so. ??? Generally you may use acetaminophen as needed for discomfort unless you have liver disease and are instructed not to take acetaminophen. Biopsy Results ??? The results of your biopsy should be available within 5 business days and will be reported to you by your primary geriatric care manager or the clinician who ordered the biopsy. Please do not call us for results as we will not have them. ??? If you have not been contacted by your clinician within 5 business days you should call that office for further information. When to call the Interventional Radiology Department: Please call with any questions or concerns. Ifit is during regular office hours, please call [phone]. If it is after regular office hours, oron weekends or holidays, please call [phone] and ask to speak to the Chief Nuclear Medicine Technologist on callfor Interventional Radiology. You have received medication during your procedure to help lessen anxiety and keep you comfortable.These medications affect judgement and reaction time. We recommend that you do not drive, operate equipment, sign any important documents, or smoke unattended for 24 hours following your procedure. Because of the sedation, be careful on stairs, as you may be unsteady on your feet. You may resume your regular diet as tolerated. IV site -- slight redness, or tenderness is normal, you can use a warm compress. If tenderness and redness increases or foul drainage occurs, please contact your M. D. Revised 09/04/19 [facility] Vascular and Interventional Radiology Biopsy Discharge Instructions ??? Biopsy: call your doctor immediately if you develop a sudden onset of weakness, increased pain or swelling at the biopsy site or heavy bleeding at the biopsy site. ??? Lung biopsy: coughing up a little blood is common during the next 24 hours. If large blood clotscome up, or if the bleeding gets worse, you should contact us or your doctor immediately. The most common complication is collapse of the lung. The symptoms of lung collapse are increasing pain on breathing, often extending into the shoulder on the side of the biopsy, and increasing difficulty breathing. If these symptoms occur after you leave the hospital, have someone drive you to the nearest Emergency Department as it must be treated promptly or call 911. Activity And Diet: ??? Go home and rest quietly for the remainder of the day. You may resume your normal activities tomorrow. ??? Resume your usual diet after the procedure. ??? Do not drive, sign any important/legal documents, or make any important decisions for 24 hours following sedation medications. When to call your healthcare provider: ??? If you see any redness, swelling or drainage at the biopsy site. ??? If you develop chills. ??? If you have a fever greater than or equal to 101 degrees Fahrenheit. ??? If you develop pain around the biopsy site. Bandage: ??? Check the dressing/bandaid throughout the day for an increase in drainage. Keep the biopsy site dry for 24 hours. Replace the bandaid as needed. You may shower 24 hours after the biopsy. Medication: ??? DO NOT take aspirin-containing products, ibuprofen, or blood-thinning medication for the next 24hours unless your clinician says you may do so. ??? Generally you may use acetaminophen as needed for discomfort unless you have liver disease and are instructed not to take acetaminophen. Biopsy Results ??? The results of your biopsy should be available within 5 business days and will be reported to you by your primary geriatric care manager or the clinician who ordered the biopsy. Please do not call us for results as we will not have them. ??? If you have not been contacted by your clinician within 5 business days you should call that office for further information. When to call the Interventional Radiology Department: Please call with any questions or concerns. Ifit is during regular office hours, please call [phone]. If it is after regular office hours, oron weekends or holidays, please call [phone] and ask to speak to the Chief Nuclear Medicine Technologist on callfor Interventional Radiology. You have received medication during your procedure to help lessen anxiety and keep you comfortable.These medications affect judgement and reaction time. We recommend that you do not drive, operate equipment, sign any important documents, or smoke unattended for 24 hours following your procedure. Because of the sedation, be careful on stairs, as you may be unsteady on your feet. You may resume your regular diet as tolerated. IV site -- slight redness, or tenderness is normal, you can use a warm compress. If tenderness and redness increases or foul drainage occurs, please contact your M. D. Revised 09/04/19 documented in this encounter Medications at Time of Discharge [...] per tablet documented as of this encounter Progress Notes Sonam Pickard RN - 10/08/2019 11:59 PM EST Interventional and Vascular Radiology Post-Procedure Call Name: Krishan Monte Age: 54 y.o. Sex; Male Date of : 1965 (home) Telephone Information: PCP Natty Mckinney MD [phone] Date/Time of call: October 09, 2019/9:25 AM Procedure: CT guided prostate biopsy Procedural Provider: Dr. Amrit Mendes Contact with patient or if not, with whom? Yes Are you having pain related to your procedure now? No Are you having any swelling or bleeding from the site? No Are there any improvement in your symptoms? N/A Are you having any other problems related to your procedure? Comments: No, everything is good. Did you understand the discharge instructions given and do you have any questions? Comments: Yes Do you have any comments about your Nurse or Provider or the care you received? No Nurse Comments: Monica Montiel RN - 10/08/2019 10:50 AM EST Pt refused wheelchair, FYI. Sonam Pickard RN - 10/08/2019 8:51 AM EST To procedure room CT 1 via stretcher. Onto table Prone. All monitors, O2, safety strap in place. Med's per protocol. Sonam Pickard RN - 10/08/2019 8:14 AM EST [facility] NURSING DATABASE Name: KRISHAN MONTE Date of : 1965 AGE: 54 y.o. Address: [address] [address] (home) Mobile: Telephone Information: Referring Provider: Daniele Seals REASON FOR VISIT: Order Questions Answers Where will study be performed? [facility] Radiology [120] Laterality Right Is the patient on anticoagulant / anitplatelet therapy ? No Does the patient have any pertinent outside imaging? No Reason for exam and clinical history: CT guided prostate biopsy. Patient s/p APR (no rectum, can nothave standard TRUS biopsy) foud to have elevated PSA and Large PIRAD 5 lesion in right peripheral zone (base to mid gland) on prostate MRI please biopsy. Other pertinent information: Reviewed with Dr. Mendes No Known Allergies Pertinent PMH: There is no problem list on file for this patient. Pertinent PSH: No past surgical history on file. Date/Procedure Meds given/comments 10/08/2019 CT Guided Prostate Biopsy Versed 4 mg IVP, Fentanyl 250 mcg IVP To procedure room CT 1 via stretcher. Onto table All monitors, O2, safety strap in place. Med's per protocol. Laboratory Results: Medications: Prior to Admission medications Medication Sig Start Date End Date Taking? Authorizing Provider VENTOLIN HFA 90 mcg/actuation HFA Aerosol Inhaler inhale 1 to 2 puffs by mouth every 4 hours if needed for shortness of breath wheezing cough 04/23/19 PROVIDER, HISTORICAL HYDROcodone-acetaminophen (NORCO) 10-325 mg Tablet TK 2 TS PO TID WITH AN ADDITIONAL TABLET AT DINNER NEEDED 08/22/19 PROVIDER, HISTORICAL methadone (DOLOPHINE) 10 mg Tablet TK 1 T PO TID 08/22/19 PROVIDER, HISTORICAL diphenoxylate-atropine (LOMOTIL) 2.5-0.025 mg per tablet 4 Tablet(s), PO, Three times daily 02/23/10 documented in this encounter H&P Notes Barbara Pereztammy, SLOT MACHINE KEY PERSON - 10/08/2019 8:37 AM EST Images from the original note were not included. INTERVENTIONAL RADIOLOGY ASA: 3: Patient with severe systemic disease Mallampati: II: tonsillar pillars are blocked by the tongue Cardiovascular: Rhythm: Regular Rate: Normal Pulmonary: Breath sounds clear to auscultation Consent: The sedation plan, its benefits and risks, and alternatives were discussed with the patient. The planned procedure, its benefits and risks, and alternatives were discussed with the patient. Thepatient consented to the procedure. H&P reviewed: Yes Current Medications Reviewed: Yes Sedation Plan: moderate (conscious sedation) FOCUSED H&P and PRE-PROCEDURE NOTE: PCP: Natty Mckinney MD Referring Provider: Daniele Seals Planned Procedure: Prostate biopsy (CT-guided) Order Questions Answers Where will study be performed? [facility] Radiology [120] Laterality Right Is the patient on anticoagulant / anitplatelet therapy ? No Does the patient have any pertinent outside imaging? No Reason for exam and clinical history: CT guided prostate biopsy. Patient s/p APR (no rectum, can nothave standard TRUS biopsy) foud to have elevated PSA and Large PIRAD 5 lesion in right peripheral zone (base to mid gland) on prostate MRI please biopsy. Other pertinent information: Reviewed with Dr. Mendes Presenting Diagnosis/ Complaint: Krishan Monte is a 54 y.o. male with elevated PSA; exam not possible due to absence of rectum (end ileostomy). MRI showed large, 3cm P5 lesion in the right mid / basePZ. Bippsy to be performed today with CT-guidance. Past Medical/Surgical History: Medical history: - Raynaud's - Crohn's with Ileostomy - Active smoker - On prednisone - On methadone and vicodin for chronic pain ?? 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 No anus. Medications: Current Outpatient Medications on File Prior to Encounter Medication Sig Dispense Refill ??? VENTOLIN HFA 90 mcg/actuation HFA Aerosol Inhaler inhale 1 to 2 puffs by mouth every 4 hours if needed for shortness of breath wheezing cough 0 ??? HYDROcodone-acetaminophen (NORCO) 10-325 mg Tablet TK 2 TS PO TID WITH AN ADDITIONAL TABLET AT DINNER NEEDED 0 ??? methadone (DOLOPHINE) 10 mg Tablet TK 1 T PO TID 0 ??? diphenoxylate-atropine (LOMOTIL) 2.5-0.025 mg per tablet 4 Tablet(s), PO, Three times daily No current facility-administered medications on file prior to encounter. Allergies: Patient has no known allergies. Social History and Habits: Social History Socioeconomic History ??? Marital status: Spouse name: Not on file ??? Number of children: Not on file ??? Years of education: Not on file ??? Highest education level: Not on file Occupational History ??? Not on file Social Needs ??? Financial resource strain: Not on file ??? Food insecurity: Worry: Not on file Inability: Not on file ??? Transportation needs: Medical: Not on file Non-medical: Not on file Tobacco Use ??? Smoking status: Not on file Substance and Sexual Activity ??? Alcohol use: Not on file ??? Drug use: Not on file ??? Sexual activity: Not on file Lifestyle ??? Physical activity: Days per week: Not on file Minutes per session: Not on file ??? Stress: Not on file Relationships ??? Social connections: Talks on phone: Not on file Gets together: Not on file Attends rastafari service: Not on file Active member of club or organization: Not on file Attends meetings of clubs or organizations: Not on file Relationship status: Not on file ??? Intimate partner violence: Fear of current or ex partner: Not on file Emotionally abused: Not on file Physically abused: Not on file Forced sexual activity: Not on file Other Topics Concern ??? Not on file Social History Narrative ??? Not on file Significant Family History: No family history on file. Pertinent ROS: as per HPI Labs: Lab Results Component Value Date WBC 12.1 (H) 10/08/2019 HCT 43.8 10/08/2019 PLATELET 221 10/08/2019 BUN 16 10/08/2019 CREATININE 0.93 10/08/2019 ALKPHOS 97 10/08/2019 AST 21 10/08/2019 ALBUMIN 4.4 10/08/2019 BILITOT 0.6 10/08/2019 ALT 33 10/08/2019 PROT 6.7 10/08/2019 Imaging: Assessment: 54 y.o. male with elevated PSA; exam not possible due to absence of rectum (end ileostomy). MRI showed large, 3cm P5 lesion in the right mid / base PZ. Bippsy to be performed today with CT-guidance. Plan: CT-guided biopsy of prostate gland 10/08/2019 documented in this encounter Plan of Treatment Upcoming Encounters Date Type Specialty Care Team Description 09/28/2022 Office Visit Radiation Oncology Natty Lawton APRN [facility] RADIATION [place] [address] (Wo rk) documented as of this encounter Procedures Procedure Name Priority Date/Time Associated Diagnosis Comme nts CT GUIDED BIOPSY Routine 10/08/2019 10:11 AM Elevated PSA Resu lts for this OTHER EST procedure are i n the results section. SURGICAL PATHOLOGY Routine 10/08/2019 9:45 AM Res ults for this REPORT EST procedure are i n the results section. SPECIMEN TO Routine 10/08/2019 9:16 AM Results f or this PATHOLOGY EST procedure are i n the results section. SPECIMEN TO Routine 10/08/2019 9:16 AM Results f or this PATHOLOGY EST procedure are i n the results section. SPECIMEN TO Routine 10/08/2019 9:16 AM Results f or this PATHOLOGY EST procedure are i n the results section. SPECIMEN TO Routine 10/08/2019 9:16 AM Results f or this PATHOLOGY EST procedure are i n the results section. SPECIMEN TO Routine 10/08/2019 9:16 AM Results f or this PATHOLOGY EST procedure are i n the results section. SPECIMEN TO Routine 10/08/2019 9:16 AM Results f or this PATHOLOGY EST procedure are i n the results section. SPECIMEN TO Routine 10/08/2019 9:08 AM Results f or this PATHOLOGY EST procedure are i n the results section. SPECIMEN TO Routine 10/08/2019 9:08 AM Results f or this PATHOLOGY EST procedure are i n the results section. SPECIMEN TO Routine 10/08/2019 9:08 AM Results f or this PATHOLOGY EST procedure are i n the results section. SPECIMEN TO Routine 10/08/2019 9:08 AM Results f or this PATHOLOGY EST procedure are i n the results section. SPECIMEN TO Routine 10/08/2019 9:08 AM Results f or this PATHOLOGY EST procedure are i n the results section. SPECIMEN TO Routine 10/08/2019 9:08 AM Results f or this PATHOLOGY EST procedure are i n the results section. SPECIMEN TO Routine 10/08/2019 8:12 AM Results f or this PATHOLOGY EST procedure are i n the results section. documented in this encounter Results CT Guided Biopsy Other (10/08/2019 10:11 AM EST) Anatomical Region Laterality Modality Computed Tomography Specimen (Source) Anatomical Location Collection Method / Collectio n Time Received Time / Laterality Volume Narrative 10/08/2019 11:14 AM EST IR PROCEDURE NOTE: ?? CT-guided prostate biopsy ? Indication: prostate mass, elevated PSA s/p APR (no rectum, can not have standar d TRUS biopsy) ??foud to have elevated PSA and Large PIRAD 5 lesion in right peripheral zone (base to mid gland) on prostate MRI please biopsy . Technique: After discussing risks (inclu ding infection and hemorrhage), and benefits, patient consented to the p rocedure. ??Due to the painful nature of the procedure, split doses of fentanyl and versed were administered by the IR nurse during cont inuous monitoring of pulse, blood pressure and oxygen saturation. Prostate was localized with CT, patient prone. ??[place], mid and basal sites located on right and left. After sterile preparation of the overlying skin, 7 cc 1% lidocaine SQ was administe red for anesthesia, and a 17 ga needle guide was advanced under CT kiley nce into the mass. The 18 ga biopsy gun was advanced coaxially and sp ecimen obtained x 1-2 at each site and submitted individually labelled ??to pathology. ??[place] were removed and hemostasis obtained by manual compre ssion. Patient tolerated the procedure well. ??There were no immediat e complications. Contrast : ??0. ?EBL : ??2 cc. Findings: ??Specimens obtained from medi al and lateral positions at apex, mid, and base of right and left lobes of prostate. (12 sites) Impression: Technically successful prost ate biopsy. I, Dr. Mendes, was present throughout th e procedure. I was present during the intraservice ti me as documented by the IR Nurse. ?? Daniele Seals MD IMG CT ORDERABLES Surgical Pathology Report (10/08/2019 9:45 AM EST) Component Value Ref Test Analysis Performed At [facility] Range Method Time Signature Surgical [id number] ? Location: [address] [place] [address] Pathology PARKER Report The signing pathologist has (i) examined the relevant preparation(s) for the [facility] specimen(s) and (ii) rendered or confirmed the diagnosis(es) . HOSPITAL LABORATORY . ?Surgic al Pathology DIAGNOSIS A - Prostatic core needle biopsy, right lateral base: ?Benign skeletal muscle and adipose tissue. B - Prostatic core needle biopsy, right lateral mid: ?Benign prostatic tissue. C - Prostatic core needle biopsy, right lateral apex: ?Benign skeletal muscle and fibrous connective tissue. D - Prostatic core needle biopsies, right base: ?Adenocarcinoma, grade group 1, Angela grade 3+3, ?involving 2 of 2 core needle biopsies (approximately 8 0% ?of the total tissue submitted). E - Prostatic core needle biopsies, right mid: ?Adenocarcinoma, grade group 1, Angela grade 3+3, ?involving 2 of 2 core needle biopsies (approximately 2 5% ?of the total tissue submitted). F - Prostatic core needle biopsy, right apex: ?Benign skeletal muscle and fibrous connective tissue. G - Prostatic core needle biopsy, left lateral base: ?Microscopic atypical glandular focus. H - Prostatic core needle biopsy, left lateral mid: ?Benign skeletal muscle, adipose, and fibrous ?connective tissue. I - Prostatic core needle biopsy, left lateral apex: ?Benign skeletal muscle, adipose, and fibrous ?connective tissue. J - Prostatic core needle biopsy, left base: ?Benign prostatic tissue. K - Prostatic core needle biopsy, left mid: ?Benign prostatic tissue. L - Prostatic core needle biopsy, left apex: ?Benign fibromuscular stroma and skeletal muscle. CR-0 Electronically signed by: ??Dillon MICHEL, Mac Coulter Verified: ??10/10/2019 ?Pathologist Performed at: ??-[facility] [place], [place], [place] DISCUSSION Scanned slides: [id number] [id number] E1-1 . CLINICAL INFORMATION Specimen Submitted: A - Right Lateral Base B - Right Lateral Mid C - Right Lateral [place] D - Right Base E - Right Mid F - Right [place] G - Left Lateral Base H - Left Lateral Mid I - Left Lateral [place] J - Left Base K - Left Mid L - Left [place] Clinical History and Diagnosis: Patient status post APR (no rectum, cannot has standard TRUS biopsy) found to have elevated PSA and large PIRA D 5 lesion in right peripheral zone (based to mid gland) on prostate MRI please biopsy. SPECIMEN PROCESSING A - Labeled/Fixative: Right lateral base prostate, formalin. Quantity/Size: Five, 6.0 x 0.1 cm. Tissue Description: Soft, pink-olivas tissues. Sections/Processing: Submitted en toto ??in 1 cassette labeled A1. B - Labeled/Fixative: Right lateral mid prostate, formalin. Quantity/Size: Two, 1.5 x 1.0 cm and 1.4 x 1.0 cm. Tissue Description: Soft, pink-olivas tissues. Sections/Processing: Submitted en toto ??in 1 cassette labeled B1. C - Labeled/Fixative: Right lateral apex prostate, formalin. Quantity/Size: Two, 0.9 x 0.1 cm and 0.4 x 0.1 cm. Tissue Description: Soft, pink-olivas tissues. Sections/Processing: Submitted en toto ??in 1 cassette labeled C1. D - Labeled/Fixative: Right medial base prostate, formalin. Quantity/Size: Two, 1.4 x 0.1 cm and 1.4 x 1.0 cm. Tissue Description: Soft, pink-olivas tissues. Sections/Processing: Submitted en toto ??in 1 cassette labeled D1. E - Labeled/Fixative: Right medial mid prostate, formalin. Quantity/Size: Two, 1.6 x 0.1 cm and 1.6 x 0.1 cm. Tissue Description: Soft, pink-olivas tissues. Sections/Processing: Submitted en toto ??in 1 cassette labeled E1. F - Labeled/Fixative: Right medial apex prostate, formalin. Quantity/Size: Single, 1.7 cm. Tissue Description: Soft, pink-olivas tissue. Sections/Processing: Submitted en toto ??in 1 cassette labeled F1. G - Labeled/Fixative: Left lateral base prostate, formalin. Quantity/Size: Three, 1.4, 0.5, and 0.3 cm x 1 cm. Tissue Description: Soft, pink-olivas tissues. Sections/Processing: Submitted en toto ??in 1 cassette labeled G1. H - Labeled/Fixative: Left lateral mid prostate, formalin. . SPECIMEN PROCESSING Quantity/Size: Multiple, up to 1.2 cm x 0.1 cm in aggregate. Tissue Description: Soft, pink-olivas tissues. Sections/Processing: Submitted en toto ??in 1 cassette labeled H1. I - Labeled/Fixative: Left lateral apex, formalin. Quantity/Size: Two, 1.1 and 0.3 x 0.1 cm. Tissue Description: Soft, pink-olivas tissues. Sections/Processing: Submitted en toto ??in 1 cassette labeled I1. J - Labeled/Fixative: Left medial base prostate, formalin. Quantity/Size: Three, 1.7 cm, 0.3 cm, and 0.2 cm x 0.1 cm. Tissue Description: Soft, pink-olivas tissues. Sections/Processing: Submitted en toto ??in 1 cassette labeled J1. K - Labeled/Fixative: Left medial mid prostate, formalin. Quantity/Size: Two, 1.7 and 1.0 x 0.1 cm. Tissue Description: Soft, pink-olivas tissues. Sections/Processing: Submitted en toto ??in 1 cassette labeled K1. L - Labeled/Fixative: Left medial apex, formalin. Quantity/Size: Two, 1.4 and 0.5 x 0.1 cm. Tissue Description: Soft, pink-olivas tissues. Sections/Processing: Submitted en toto ??in 1 cassette labeled L1. ??crj Specimen (Source) Anatomical Collection Method Collection Time Re ceived Time Location / / Volume Laterality 10/08/2019 9:45 AM EST Daniele Seals MD PATHOLOGY/CYTOLOGY ORDERABLE S Performing Organization Address City/[facility]/[place] [address] Specimen to Pathology (10/08/2019 9:16 AM EST) Specimen Anatomical Collection Method Collection Time Receive d Time (Source) Location / / Volume Laterality AP Specimen 10/08/2019 9:16 AM 9 9:16 EST AM EST Narrative [facility] [place] 10/08/2019 9:16 AM EST Specimen requisition ordered. ??Separate Pathology report to follow Daniele Seals MD PATHOLOGY/CYTOLOGY ORDERABLE S Performing Organization Address City/State/[place] [address] Specimen to Pathology (10/08/2019 9:16 AM EST) Specimen Anatomical Collection Method Collection Time Receive d Time (Source) Location / / Volume Laterality AP Specimen 10/08/2019 9:16 AM 9 9:16 EST AM EST Narrative [facility] [place] - 10/08/2019 9:16 AM EST Specimen requisition ordered. ??Separate Pathology report to follow Daniele Seals MD PATHOLOGY/CYTOLOGY ORDERABLE S Performing Organization Address City/[facility]/[place] [address] Specimen to Pathology (10/08/2019 9:16 AM EST) Specimen Anatomical Collection Method Collection Time Receive d Time (Source) Location / / Volume Laterality AP Specimen 10/08/2019 9:16 AM 9 9:16 EST AM EST Narrative [facility] [place] 10/08/2019 9:16 AM EST Specimen requisition ordered. ??Separate Pathology report to follow Daniele Seals MD PATHOLOGY/CYTOLOGY ORDERABLE S Performing Organization Address City/[facility]/[place] [address] Specimen to Pathology (10/08/2019 9:16 AM EST) Specimen Anatomical Collection Method Collection Time Receive d Time (Source) Location / / Volume Laterality AP Specimen 10/08/2019 9:16 AM 9 9:16 EST AM EST Narrative [facility] [place] - 10/08/2019 9:16 AM EST Specimen requisition ordered. ??Separate Pathology report to follow Daniele Seals MD PATHOLOGY/CYTOLOGY ORDERABLE S Performing Organization Address City/[facility]/[place] [address] Specimen to Pathology (10/08/2019 9:16 AM EST) Specimen Anatomical Collection Method Collection Time Receive d Time (Source) Location / / Volume Laterality AP Specimen 10/08/2019 9:16 AM 9 9:16 EST AM EST Narrative [facility] [place] - 10/08/2019 9:16 AM EST Specimen requisition ordered. ??Separate Pathology report to follow Daniele Seals MD PATHOLOGY/CYTOLOGY ORDERABLE S Performing Organization Address City/[facility]/[place] [address] Specimen to Pathology (10/08/2019 9:16 AM EST) Specimen Anatomical Collection Method Collection Time Receive d Time (Source) Location / / Volume Laterality AP Specimen 10/08/2019 9:16 AM 9 9:16 EST AM EST Narrative [facility] [place] - 10/08/2019 9:16 AM EST Specimen requisition ordered. ??Separate Pathology report to follow Daniele Seals MD PATHOLOGY/CYTOLOGY ORDERABLE S Performing Organization Address City/[facility]/[place] [address] Specimen to Pathology (10/08/2019 9:08 AM EST) Specimen Anatomical Collection Method Collection Time Receive d Time (Source) Location / / Volume Laterality AP Specimen 10/08/2019 9:08 AM 9 9:08 EST AM EST Narrative [facility] [place] 10/08/2019 9:08 AM EST Specimen requisition ordered. ??Separate Pathology report to follow Daniele Seals MD PATHOLOGY/CYTOLOGY ORDERABLE S Performing Organization Address City/[facility]/[place] [address] Specimen to Pathology (10/08/2019 9:08 AM EST) Specimen Anatomical Collection Method Collection Time Receive d Time (Source) Location / / Volume Laterality AP Specimen 10/08/2019 9:08 AM 9 9:08 EST AM EST Narrative [facility] [place] 10/08/2019 9:08 AM EST Specimen requisition ordered. ??Separate Pathology report to follow Daniele Seals MD PATHOLOGY/CYTOLOGY ORDERABLE S Performing Organization Address City/[facility]/[place] [address] Specimen to Pathology (10/08/2019 9:08 AM EST) Specimen Anatomical Collection Method Collection Time Receive d Time (Source) Location / / Volume Laterality AP Specimen 10/08/2019 9:08 AM 9 9:08 EST AM EST Narrative [facility] [place] 10/08/2019 9:08 AM EST Specimen requisition ordered. ??Separate Pathology report to follow Daniele Seals MD PATHOLOGY/CYTOLOGY ORDERABLE S Performing Organization Address City/[facility]/[place] [address] Specimen to Pathology (10/08/2019 9:08 AM EST) Specimen Anatomical Collection Method Collection Time Receive d Time (Source) Location / / Volume Laterality AP Specimen 10/08/2019 9:08 AM 9 9:08 EST AM EST Narrative [facility] [place] 10/08/2019 9:08 AM EST Specimen requisition ordered. ??Separate Pathology report to follow Daniele Seals MD PATHOLOGY/CYTOLOGY ORDERABLE S Performing Organization Address City/State/[place] [address] Specimen to Pathology (10/08/2019 9:08 AM EST) Specimen Anatomical Collection Method Collection Time Receive d Time (Source) Location / / Volume Laterality AP Specimen 10/08/2019 9:08 AM 9 9:08 EST AM EST Narrative [facility] [place] - 10/08/2019 9:08 AM EST Specimen requisition ordered. ??Separate Pathology report to follow Daniele Seals MD PATHOLOGY/CYTOLOGY ORDERABLE S Performing Organization Address City/[facility]/[place] [address] Specimen to Pathology (10/08/2019 9:08 AM EST) Specimen Anatomical Collection Method Collection Time Receive d Time (Source) Location / / Volume Laterality AP Specimen 10/08/2019 9:08 AM 9 9:08 EST AM EST Narrative [facility] [place] - 10/08/2019 9:08 AM EST Specimen requisition ordered. ??Separate Pathology report to follow Daniele Seals MD PATHOLOGY/CYTOLOGY ORDERABLE S Performing Organization Address City/[facility]/[place] [address] Specimen to Pathology (10/08/2019 8:12 AM EST) Specimen Anatomical Collection Method Collection Time Receive d Time (Source) Location / / Volume Laterality AP Specimen 10/08/2019 8:12 AM 9 8:12 EST AM EST Narrative [facility] [place] - 10/08/2019 8:12 AM EST Specimen requisition ordered. ??Separate Pathology report to follow Daniele Seals MD PATHOLOGY/CYTOLOGY ORDERABLE S Performing Organization Address City/[facility]/[place] [address] documented in this encounter Visit Diagnoses Diagnosis Elevated PSA Elevated prostate specific antigen (PSA) documented in this encounter Administered Medications Inactive Administered Medications - up to 3 most recent administrations Medication Order MAR Action Action Date Dose Rate Site fentaNYL (PF) 50 mcg/mL injection 1 dose, Starting on Sun10/08/19 at 0840 , Until Sun10/08/19 at 0858, Sonam Pickard: cabinet override fentaNYL 50 mcg/mL multi-dose injection Given 10/08/2019 9:17 AM EST 50 mcg 25-50 mcg, Intravenous, EVERY 5 MIN PRN, Starting on Sun10/08/19 at 0845, Until Sun10/08/19 at 1041, Pain, per unit protocol, - Start dose 50 mcg (reduce dose to 25 mcg if history of sedation sensitivity). - Titration dose 25-50 mcg IV, (based on patient response) every 3 minutes PRN, to maintain procedural pain less than 2 per pain Scale. Maximum dose: 50 mcg/dose, 250 mcg/hour For use in Interventional Radiology (IR) only for procedural sedation with direct provider supervision and verbal order., Angio/IR (Intra-Procedure), Routine Given 10/08/2019 9:12 AM EST 50 mcg Given 10/08/2019 9:07 AM EST 50 mcg lidocaine (XYLOCAINE) 10 mg/mL (1 %) injection Given 1 12/08/2018 9:20 AM EST 10 mg 10 mg 10 mg, Subcutaneous, ONCE, 1 dose, On Sun10/08/19 at 0915, For use in Interventional Radiology (IR) only for procedure with direct provider supervision and verbal order., Angio/IR (Intra-Procedure), Routine midazolam (PF) (VERSED) 1 mg/mL injectio n 1 dose, Starting on Sun10/08/19 at 0840 , Until Sun10/08/19 at 0858, Sonam Pickard: cabinet override midazolam (PF) (VERSED) multi-dose injection Given 10/08/2019 9: 11 AM EST 1 mg 0.5-1 mg 0.5-1 mg, Intravenous, EVERY 3 MIN PRN, Starting on Sun10/08/19 at 0845, Until Sun10/08/19 at 1041, Sleep, - Start dose; 1 mg (Reduce dose to 0.5 mg if history of sedation sensitivity). - Titration dose: 0.5 mg - 1 mg (based on patient response) every 3 minutes PRN to obtain RASS score of -3. Maximum dose: 1 mg per dose, 5 mg/hour. For use in Interventional Radiology (IR) only for procedural sedation with direct provider supervision and verbal order., Angio/IR (Intra-Procedure), Routine Given 10/08/2019 9:08 AM EST 1 mg Given 10/08/2019 9:04 AM EST 1 mg sodium chloride 0.9% infusion New Bag 10/08/2019 9:15 AM EST 1,000 mLs 100 mL/hr 1,000 mL, at 100 mL/hr, Intravenous, CONTINUOUS, Starting on Sun10/08/19 at 0915, Until Sun10/08/19 at 1041, Angio/IR (Day of Procedure) documented in this encounter Care Teams Manager Clinical Pharmacy Relationship Specialty Start Date End Date Natty Mckinney MD PCP - General 10/11/10 [address] [place] [address] documented as of this encounter
--- OUTSIDE RECORDS SUMMARY | 2022-09-22 00:42 | XMS_ITS | Encounter Summary ---
:1965 Author Organization [facility] [place] [address] Care Team Providers Name Role Phone Natty Mckinney MD Primary Care Provider Encounter Details Date Type Department Care Team Description 01/02/2020 Orders Only Radiation Oncology at [facility] M alignant neoplasm of [facility] MD prostate [address] [place], [place] RADIATION ONCOL OGY [address] [place], [place] [phone] (Wo rk) Social History Tobacco Use Types [...] Visit Radiation Oncology Natty Lawton APRN [facility] RADIATION ONCSHAYLA [place], [place] [address] (Wo rk) documented as of this encounter Visit Diagnoses Diagnosis Malignant neoplasm of prostate documented in this encounter Care Teams Fishing Captain Relationship Specialty Start Date End Date Natty Mckinney MD PCP - General 10/11/10 [address] [place] [address] documented as of this encounter
--- OUTSIDE RECORDS SUMMARY | 2022-09-22 00:42 | XMS_ITS | Encounter Summary ---
:1965 Author Organization [facility] [place] [address] Care Team Providers Name Role Phone Natty Mckinney MD Primary Care Provider Encounter Details Date Type Department Care Team Description 09/16/2019 Transcribe Orders Laboratory Natty Mckinney Stomach ache; [facility] MD Shayy Epidemic vomiting syndrome; Drive [address] [place] [address] [phone] Social History Tobacco Use Types Packs/Day Years Used Date Never Assessed Sex Assigned at Date Recorded Not on file documented as of this encounter Plan of Treatment Upcoming Encounters Date Type Specialty Care Team Description 09/28/2022 Office Visit Radiation Oncology Natty Lawton, [employer] [facility] RADIATION ONCSHAYLA [place], [place] [address] (Wo rk) documented as of this encounter Results Vitamin B1, whole blood (10/08/2019 7:14 AM EST) P athologist Signature Vit B1 Lvl WB 177 70 - 180 [facility] nmol/L [facility] Comment: ADDITIONAL INFORMATIO N This test was developed and its performa nce characteristics determined by [facility] in a manner co nsistent with CLIA requirements. This test has not been jerry ared or approved by the U.S. Food and Drug Administration. Test Performed by: [facility] [address] [place], [place] [address] Refrigeration Tech: Valente Romero M.D. Ph. D.; IA# [id number] Specimen Anatomical Collection Method Collection Time Receive d Time (Source) Location / / Volume Laterality Blood specimen 10/08/2019 7:14 AM 019 8:35 (specimen) EST AM EST Resulting Agency Comment Spec In Lab Natty Mckinney MD CHEMISTRY ORDERABLES Performing Organization Address City/State/ZIP Code Phon e Number [address] Sedimentation rate (10/08/2019 7:14 AM EST) P athologist Signature Sed Rate 5 0 - 15 [facility] mm/hr [facility] Specimen Anatomical Collection Method Collection Time Receive d Time (Source) Location / / Volume Laterality Blood specimen 10/08/2019 7:14 AM 019 7:27 (specimen) EST AM EST Resulting Agency Comment Spec In Lab Natty Mckinney MD HEMATOLOGY ORDERABLES Performing Organization Address City/[facility]/ZIP Code Phon e Number [address] CK (10/08/2019 7:14 AM EST) P athologist Signature CK, Total 59 0 - 200 [facility] unit/L [facility] Specimen Anatomical Collection Method Collection Time Receive d Time (Source) Location / / Volume Laterality Blood specimen 10/08/2019 7:14 AM 019 7:27 (specimen) EST AM EST Resulting Agency Comment Spec In Lab Natty Mckinney MD CHEMISTRY ORDERABLES Performing Organization Address City/[facility]/[place] [address] Magnesium (10/08/2019 7:14 AM EST) P athologist Signature Magnesium 0.87 0.69 - 1.07 [facility] mmol/L [facility] Specimen Anatomical Collection Method Collection Time Receive d Time (Source) Location / / Volume Laterality Blood specimen 10/08/2019 7:14 AM 019 7:27 (specimen) EST AM EST Resulting Agency Comment Spec In Lab Natty Mckinney MD CHEMISTRY ORDERABLES Performing Organization Address City/[facility]/ZIP Code Phon e Number [place] [phone] [facility] [address] (ABNORMAL) Vitamin A (10/08/2019 7:14 AM EST) P athologist Signature Vitamin A 87.6 (H) 32.5 - 78.0 [facility] mcg/dL [facility] Comment: ADDITIONAL INFORMATIO N This test was developed and its performa nce characteristics determined by [facility] in a manner co nsistent with CLIA requirements. This test has not been jerry ared or approved by the U.S. Food and Drug Administration. Test Performed by: [facility] [address] [place] [address] Refrigeration Tech: Valente Romero M.D. Ph. D.; CLIA# [id number] Specimen Anatomical Collection Method Collection Time Receive d Time (Source) Location / / Volume Laterality Blood specimen 10/08/2019 7:14 AM 019 (specimen) EST 10:36 AM EST Resulting Agency Comment Spec In Lab Natty Mckinney MD CHEMISTRY ORDERABLES Performing Organization Address City/[facility]/[place] [address] documented in this encounter Visit Diagnoses Diagnosis Stomach ache Dyspepsia and other specified disorders of function of stomach Epidemic vomiting syndrome Ileostomy status documented in this encounter Care Teams Waterproofer Relationship Specialty Start Date End Date Natty Mckinney MD PCP - General 10/11/10 [address] [place] [address] documented as of this encounter
--- OUTSIDE RECORDS SUMMARY | 2022-09-22 00:42 | XMS_ITS | Encounter Summary ---
:1965 Author Organization [facility] Address [facility] [place] [address] Care Team Providers Name Role Phone Natty Mckinney MD Primary Care Provider Encounter Details Date Type Department Care Team Description 12/02/2019 Telephone Urology at [facility] Daniele Seals MD [facility] [place] [address] UROLOGY [phone] [place], [place] [address] (Wo rk) Social History Tobacco Use Types Packs/Day Years Used Date Never Assessed Sex Assigned at Date Recorded Not on file documented as of this encounter Miscellaneous Notes Telephone Encounter - Nicole Mayer - 12/02/2019 4:[address] Nicholson from [facility] called regarding pt. Pt had CT Prostate BX in 09/2019 - Case discussed at Tumor Board 10/30/19, no appointments have beenscheduled to discuss plan with patient. Please Advise or Pt can be reached at [phone] documented in this encounter Plan of Treatment Upcoming Encounters Date Type Specialty Care Team Description 09/28/2022 Office Visit Radiation Oncology Natty Lawton, [employer] [facility] RADIATION ONCSHAYLA [place] [address] (Wo rk) documented as of this encounter Visit Diagnoses Not on filedocumented in this encounter Care Teams Seat Joiner Chainstitch Relationship Specialty Start Date End Date Natty Mckinney MD PCP - General 10/11/10 [address] [place] [address] documented as of this encounter
--- OUTSIDE RECORDS SUMMARY | 2022-09-22 00:42 | XMS_ITS | Encounter Summary ---
:1965 Author Organization [facility] [place] [address] Care Team Providers Name Role Phone Natty Mckinney MD Primary Care Provider Encounter Details Date Type Department Care Team Description 03/12/2020 Procedure visit Radiation Oncology Benito Samayoa I, Mal ignant neoplasm of at [address] [place] [address] RADIATION [phone] ONCOLOGY [place], [place] [address] Social History Tobacco Use Types [...] Sign Reading Time Taken Comments Blood Pressure 119/67 03/12/2020 9:41 AM EDT Pulse 60 03/12/2020 9:41 AM EDT Temperature 36.9 ??C (98.4 ??F) 03/12/2020 9:41 AM EDT Respiratory Rate 16 03/12/2020 9:41 AM EDT Oxygen Saturation 100% 03/12/2020 9:41 AM EDT Inhaled Oxygen Concentration - - Weight - - Height - - Body Mass Index - - documented in this encounter Progress Notes Benito Samayoa MD - 03/12/2020 10:00 AM EDT Radiation Oncology visit note PATIENT IDENTIFICATION Diagnosis Cancer Staging Malignant neoplasm of prostate Staging form: Prostate, AJCC 8th Edition - Clinical: Stage Unknown (cTX, cN0, cM0, PSA: 7.2, Grade Group: 1) - Signed by Santiago Arroyo MDon 12/16/2019 INTENT OF THERAPY: Definitive (Curative) RADIATION TREATMENT DETAILS: Treatment Site Prostate Prescribed Dose 36.25 Gy in 5 fractions Current Dose: 7.25 Gy in 1 fraction INTERVAL HISTORY Subjective: General - No changes [...] Pain score today is 0/10. MEDS Medications 03/12/20 0945 Medication Sig Taking? celecoxib (CeleBREX) 200 mg Capsule 2 times daily. For joint pain Yes ciprofloxacin (Cipro) 500 mg Tablet Take 500 mg by mouth daily. Yes ondansetron ODT (Zofran-ODT) 4 mg Tablet, Rapid Dissolve every 8 hours as needed. Yes DULoxetine DR (Cymbalta) 30 mg Capsule, Delayed Release(E.C.) daily. Yes VENTOLIN HFA 90 mcg/actuation HFA Aerosol Inhaler inhale 1 to 2 puffs by mouth every 4 hours if needed for shortness of breath wheezing cough Yes HYDROcodone-acetaminophen (NORCO) 10-325 mg Tablet TK 2 TS PO TID WITH AN ADDITIONAL TABLET AT DINNER NEEDED Yes methadone (DOLOPHINE) 10 mg Tablet 15 mg See Admin Instructions. At HS and middle of night. Yes diphenoxylate-atropine (LOMOTIL) 2.5-0.025 mg per tablet 4 Tablet(s), PO, Three times daily Yes EXAM: BP 119/67 Pulse 60 Temp 36.9 ??C (98.4 ??F) (Oral) Resp 16 SpO2 100% Constitutional: he appears [...] Impression: Patient presents prior to treatment with second fraction of SBRT to the prostate. Plan: Continue with SBRT today. POST TREATMENT NOTE: I directly observed and supervised today's treatment from the radiation therapy console, which consisted of pretreatment imaging for setup, cone-beam CT for verification and intrafraction monitoring using the Marker-Match real time fiducial IGRT treatment system. Krishan tolerated treatment with no concerns. documented in this encounter Plan of Treatment Upcoming Encounters Date Type Specialty Care Team Description 09/28/2022 Office Visit Radiation Oncology Natty Lawton APRN [facility] RADIATION ONCSHAYLA [place], [place] [address] (Wo rk) documented as of this encounter Visit Diagnoses Diagnosis Malignant neoplasm of prostate documented in this encounter Care Teams Propellant Charge Zone Assembler Relationship Specialty Start Date End Date Natty Mckinney MD PCP - General 10/11/10 [address] [place] [address] documented as of this encounter
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
--- OUTSIDE RECORDS SUMMARY | 2022-09-22 00:44 | XMS_ITS | Encounter Summary ---
:1965 Author Organization [facility] Address [address] [place] [address] Care Team Providers Name Role Phone Natty Mckinney MD Primary Care Provider Encounter Details Date Type Department Care Team Description 04/17/2020 Lab Requisition [facility] Outr Resulting Lab, Pathology & Laboratory Provider [facility] [address] [place], [place] [id number] Social History Tobacco Use Types Packs/Day Years Used Date Never Assessed Intimate Partner Violence Answer Date Recorded Within [...] Procedure Name Priority Date/Time Associated Comments Diagnosis PSA TOTAL, Routine 04/16/2020 10:35 Results for this DIAGNOSTIC EDT procedure are i n the results section. documented in this encounter Results PSA TOTAL, DIAGNOSTIC (04/16/2020 10:35 EDT) Pathologist Sig nature PSA 1.9 0.0 - 3.5 ng/mL [facility] Specimen Blood - Venous blood (substance) Narrative [facility] - 04/19/2020 10:28 EDT NOTE: Serum PSA concentration should not be in terpreted as absolute evidence for the presence or absence of malignant disease. Assayed on [employer] XPT usi ng chemiluminescent technology.??Values obtained by using different assay methods cannot be used interchangeably. Performing Organization Address City/State/ZIP Code Phon e Number [facility] [address] [place] [address] SERVICES documented in this encounter Visit Diagnoses Not on filedocumented in this encounter Care Teams Financial Planning Consultant Relationship Specialty Start Date End Date Natty Mckinney MD PCP - General 09/29/15 documented as of this encounter
--- OUTSIDE RECORDS SUMMARY | 2022-09-22 00:44 | XMS_ITS | Encounter Summary ---
:1965 Author Organization [facility] Address [address] [place] [address] Care Team Providers Name Role Phone Unavailable Primary Care Provider Unavailable Encounter Details Date Type Department Care Team Description 08/11/2003 Results Only [facility] - Brittny Marie, Chr marilyn, conversion DO [address] [place], [place] [id number] [place] [id number] (Wo rk) Social History Tobacco Use Types [...] Name Priority Date/Time Associated Diagnosis Comme nts SURGICAL PATHOLOGY Routine 08/11/2003 0:00 EDT Re sults for this procedure are i n the results section. documented in this encounter Results SURGICAL PATHOLOGY (08/11/2003 0:00 EDT) Pathology Report: SURGICAL PATHOLOGY REPORT VALERIO A LLEN Reports generated via electronic interface contain zechariah ginal data; LAB however they are lacking the format of the original re port. Caution should be taken when reading/interpreting unfo rmatted reports. Name: ? KRISHAN MONTE ? Accession #: ? [id number] ? : ? 1965 (Age: 38) ??M ? Collect Date: ? 08/11/2003 ? Location: ? [facility] ? Receive Date: ? 003 ? Provider: MIRNA MARIE DO Copy to: SONJA ALVA MD ? Final Pathologic Diagnosis: A. ?Small intestine, biopsy: 1. ?Benign intestinal mucosa with mild ch ronic inflammation. 2. ?No evidence of active Crohn' s diseas e. 3. ?No evidence of dysplasia or malignanc y. B. ?Ileum, biopsy: 1. ?Focal mucos al defect, granulation tissue, organizing blood clot, and reactive changes. 2. ?No evidence of active Crohn' s diseas e. 3. ?No evidence of dysplasia or malignanc y. Document reviewed and electronically signed by: Marina Fox MD Report ??Date: 08/13/2003 18:43 By the signature above, the attending physician certif ies that he/she has personally conducted a gross and/or microscopic examin ation of the described specimens and rendered or confirmed the above diagnosi s. Specimen(s) Received: A. ?Small bowel biopsy B. ?Ileum biopsy Clinical History: ? Bowel obstruction Gross Description: ? Received in formalin labelled Foster and small bowel bx is a 1.4 x 0.3 x 0.2 cm, pink strip of mucosa. ??The specimen is enti rely submitted as (A). Received in formalin labelled Foster a nd ileum bx is a 1.5 x 0.7 x 0.4 cm, pink, mucosal polyp admixed with blood clot. ??The specimen is entirely submitted as (B). ??(Devin Thorne)/[facility] End of Report Specimen Performing Organization Address City/State/ZIP Code Phon e Number [facility] [address] [place] [address] SERVICES [facility] [address] [place] [address] documented in this encounter Visit Diagnoses Not on filedocumented in this encounter
--- OUTSIDE RECORDS SUMMARY | 2022-09-22 00:44 | XMS_ITS | Encounter Summary ---
:1965 Author Organization [facility] Address [address] [place] [address] Care Team Providers Name Role Phone Unavailable Primary Care Provider Unavailable Encounter Details Date Type Department Care Team Description 07/10/2003 Results Only [facility] - Brittny Marie, Chr marilyn, conversion DO [address] [place], [place] [id number] [place] [id number] (Wo rk) Social History Tobacco Use Types [...] Associated Diagnosis Comme nts SURGICAL PATHOLOGY Routine 07/10/2003 0:00 EDT Re sults for this procedure are i n the results section. documented in this encounter Results SURGICAL PATHOLOGY (07/10/2003 0:00 EDT) Pathology Report: SURGICAL PATHOLOGY REPORT VALERIO A LLEN Reports generated via electronic interface contain zechariah ginal data; LAB however they are lacking the format of the original re port. Caution should be taken when reading/interpreting unfo rmatted reports. Name: ? KRISHAN MONTE ? Accession #: ? [id number] ? : ? 1965 (Age: 38) ??M ? Collect Date: ? 07/10/2003 ? Location: ? [facility] ? Receive Date: ? 003 ? Provider: MIRNA MARIE DO Copy to: SONJA SALOMON MD ? Final Pathologic Diagnosis: A. ?Small bowel, 24 cm from anastomosis, biopsies: 1. ?No specific pathologic features. B. ?Small bowel, 10 cm from anastomosis, biopsies: 1. ?No specific pathologic features. Document reviewed and electronically signed by: Quita De La Torre MD Report ??Date: 07/14/2003 16:38 By the signature above, the attending physician certif ies that he/she has personally conducted a gross and/or microscopic examin ation of the described specimens and rendered or confirmed the above diagnosi s. Specimen(s) Received: A. ?Bx sm bowel 24 cm from anastomosis (# 1) B. ?Bx sm bowel 10 cm from anastomosis (# 2) Clinical History: ? Abdominal pain; personal hx Crohn' s disease; S /P sm bowel resection Gross Description: ? Received in Hollande' s fixative labelled Lavell and bx sm bowel 24 cm from ileostomy are multiple soft tissue fragmen ts which measure in aggregate 0.6 x 0.6 x 0.3 cm. ??Submitted entirely as (A). ?? Received in Hollricardoe' s fixative anabel d Lavell and bx sm bowel 10 cm from anastomosis are multiple so ft tissue fragments which measure in aggregate 0.3 x 0.3 x 0.3 cm. ??Submitted entirely as (B). ??(Dr. Gomes -FEDE)/charli End of Report Specimen Performing Organization Address City/State/ZIP Code Phon e Number [facility] [address] [place] [address] SERVICES [facility] [address] [place] [address] documented in this encounter Visit Diagnoses Not on filedocumented in this encounter
--- OUTSIDE RECORDS SUMMARY | 2022-09-22 00:44 | XMS_ITS | Encounter Summary ---
:1965 Author Organization [facility] Address [address] [place] [id number] Care Team Providers Name Role Phone Unavailable Primary Care Provider Unavailable Encounter Details Date Type Department Care Team Description 03/09/2003 Hospital Encounter [facility]- [place], [facility] [address] [place] [address] Social History Tobacco Use Types Packs/Day Years [...] on file documented as of this encounter Discharge Disposition Disposition Code Departure Means Destination Auto Discharge documented in this encounter Plan of Treatment Not on filedocumented as of this encounter Visit Diagnoses Not on filedocumented in this encounter
--- OUTSIDE RECORDS SUMMARY | 2022-09-22 00:44 | XMS_ITS | Encounter Summary ---
:1965 Author Organization [facility] Address [address] [place] [address] Care Team Providers Name Role Phone Natty Mckinney MD Primary Care Provider Reason for Visit Reason Comments New Patient Visit Joint pain- pt states knees (right one being replaced) and hands right CMC joint. Left hip po ints to joint. Encounter Details Date Type Department Care Team Description 01/06/2021 Office Visit [facility] Ashley Massey Left hip pain (Primary Dx); [place] [facility] MD [place] Chronic pain of right knee; [address] Arthritis of carpometacarpal (CMC) joint s of both thumbs; [place] [address] [address] Bilateral thumb pain; [phone] [place], [place] Numbness and ti ngling in both hands [phone] Social History Tobacco Use Types Packs/Day Years [...] Sign Reading Time Taken Comments Blood Pressure 151/87 01/06/2021 1407 EST Pulse 78 01/06/2021 1407 EST Temperature 37.1 ??C (98.7 ??F) 01/06/2021 1407 EST Respiratory Rate - - Oxygen Saturation - - Inhaled Oxygen Concentration - - Weight 70.3 kg (155 lb) 01/06/2021 1407 EST Height 188 cm (6' 2) 01/06/2021 1407 EST Body Mass Index 19.9 01/06/2021 1407 EST documented in this encounter Patient Instructions Patient InstructionsAshley Massey MD - 01/06/2021 14:15 EST Images from the original note were not included. Stay on B12 May be contributing to numbness and pain Right knee per Dr Irizarry Ice and rest the wrists [facility] Patient Instructions Learning About Arthritis at the Base of the Thumb What is it? Arthritis at the base of the thumb joint is wear and tear on the cartilage. Cartilage is a firm, thick, slippery tissue. It covers and protects the ends of bones where they meet to form a joint. When you have arthritis, there are changes in the cartilage that cause it to break down. The bones rub together and cause joint damage and pain. What causes it? Experts don't know what causes arthritis at the base of the thumb. But aging, a lot of use, an injury, or family history may play a part. What are the symptoms? Symptoms of arthritis at the base of the thumb include aching in your joint. Or the pain may feel burning or sharp. You may feel clicking, creaking, or catching in the joint. It may get stiff. You may have more pain and less strength when you pinch or income tax return preparer things. Symptoms may come and go, stay the same, or get worse over time. How is it diagnosed? Your doctor can often diagnose arthritis by asking you questions about your joint pain and other symptoms and examining you. You may also have X-rays and blood tests. Blood tests can help make sure another disease isn't causing your symptoms. How is it treated? Arthritis at the base of your thumb may be treated with rest, pain relievers, steroid medicines, using a brace or splint, and???in some cases???surgery. To help relieve pain in the joint, rest your sore hand. Switch hands for some activities. You can try heat and cold therapy, such as hot compresses, paraffin wax, cold packs, or ice massage. Your doctor may give you a splint to wear during some activities or when pain flares up. You can often manage mild or moderate arthritis pain with [id number] pain relievers. These include medicines that reduce swelling, such as ibuprofen or naproxen. You can also use acetaminophen. Sometimes these medicines are in creams that you can rub on your thumb and hand. Your doctor may also prescribe other medicine for your pain. For some people, steroid shots may be an option. If none of the treatments work, your doctor may discuss surgery with you. Follow-up care is a degroot part of your treatment and safety. Be sure to make and go to all appointments, and call your doctor if you are having problems. It's also a good idea to know your test results and keep a list of the medicines you take. Where can you learn more? Go to [email or web address] or log into your [email or web address] account at [email or web address] Enter T110 in the search box to learn more about Learning About Arthritis at the Base of the Thumb. Current as of: October 27, 2019?Content Version: 12.6 ?? [id number] [employer]. Care instructions adapted under license by [facility]. If you have questions about a medical condition or this instruction, always ask your healthcare professional. [employer] disclaims any warranty or liability for your use of this information. documented in this encounter Progress Notes Ashley Massey MD - 01/06/2021 1052 EST [facility] Rheumatology Chief Complaint Patient presents with ??? New Patient Visit Joint pain- pt states knees (right one being replaced) and hands right CMC joint. Left hip points to joint. Rheumatology problem list Crohn's disease Dx age 10 1988 ileostomy Intermittent flares rx with prednisone No response to biologics Son has Crohns Hx prostate cancer -low risk prostate CA, MRI no SV invasion - Radiation in 2019 Chronic joint pain Chronic abdominal pain B 12 deficiency due to surgical excision of terminal ileum Smoker CMC oa Right knee osteoarthritis. HPI: 55-year-old gentleman with a history of Crohn's disease dating back to approximately age 10 resulting in ileostomy in 1988 presents for evaluation of joint pain. Patient states that when he was age 8 he developed bilateral knee swelling. This improved spontaneously, several years later he was diagnosed with Crohn's disease. He states the main focus of his care is always been related to his bowel issues which have been significant. He had significant melena absorption as a consequence of his surgeries and has recurrent strictures and obstructions. He reports that he is functionally B12 deficient dueto absence of terminal ileum and that he should take B12 shots. He states he has been somewhat noncompliant with the shots lately for reasons that he cannot explain, thinks his last injection was sometime in September. He reports that he started smoking at age 10. States the cigarettes were given to him by a surgeon when he was stuck in the hospital. He reports that he was diagnosed with prostate cancer several years ago and underwent radiation. Dueto his underlying bowel issues he is not a candidate for resection. He has no current urinary symptoms. He states he is never had iritis or uveitis. He does have intermittent flareups of Crohn's disease which are treated with steroids. Because he is so slim because of his colectomy which is on the right side he sleeps on his left lateral thigh which has become sore. He also developed knee pain. He was told he had end-stage arthritis.He is going to be seen by orthopedics to consider knee replacement sometime in January. The patient states he is also had hand pain. Hands are dropping things and weak sensation is alteredalso has pain in the elbows. All the joints are arthritic per report of PCP. He states that he has pain at the base of his thumb. Makes it hard to do some mechanical work which he enjoys. Overall he tries to avoid the hospital because of prolonged time spent in hospitals from very young age. States it was difficult to get himself to come here today but he did come in because he has beenwanting to deal with his joint pain for a while. Review of systems as above in addition he reports he has chronic belly pain nausea vomiting stomach cramps bloody stools and diarrhea. None of this is new or concerning him given his history is severalhours of morning stiffness and symptoms in the joints as above he has numbness and tingling in his arms and legs. He does not know if it has been related to him not taking B12 Goals today improve hand pain if possible but avoid any extra imaging testing and avoid spending a lot of time in hospitals. He does not mind injections or needles. Current Outpatient Medications Medication ??? albuterol (VENTOLIN HFA) 90 mcg/actuation inhaler ??? aspirin chewable 81 mg tablet ??? celecoxib (CELEBREX) 200 mg capsule ??? cyanocobalamin, vitamin B-12, 1,000 mcg/mL drops ??? diclofenac sodium (VOLTAREN) 1 % gel ??? diphenoxylate-atropine (LOMOTIL) 2.5-0.025 mg per tablet ??? HYDROcodone-acetaminophen (NORCO) 10-325 mg tablet ??? methadone (DOLOPHINE) 10 mg tablet ??? naloxone (NARCAN) 4 mg/actuation nasal spray ??? nicotine (NICODERM CQ) 14 mg/24 hr patch ??? nicotine polacrilex (NICORETTE) 4 mg gum ??? ondansetron (ZOFRAN ODT) 4 mg disintegrating tablet ??? Ostomy Supplies ??? Ostomy Supplies No current facility-administered medications for this visit. Allergies include: Patient has no known allergies. Past Medical History: Diagnosis Date ??? Crohn disease ([facility]) ??? Knee osteoarthritis ??? Prostate CA ([facility]) radiation [facility] Family History Problem Relation Age of Onset ??? Crohn's Disease Son Social History: Smoker 2 grown children. From [facility]. Family members nearby. No alcohol. Occasional marijuana Review of Systems: 13 point ROS was done with the patient. See scanned document for details. Pertinent positives and negatives are noted in the HPI. Physical Examination: BP (!) 151/87 (BP Cuff Location: Left arm, BP Cuff Sizes: Adult, regular) Pulse 78 Temp 37.1 ??C(98.7 ??F) Ht 188 cm (74) Wt 70.3 kg (155 lb) BMI 19.90 kg/m?? Pleasant gentleman no apparent distress Eyes no injection Neck range of motion preserved Skin no rashes or abnormalities on extremities Or trunk Hand exam CMC squaring. Tinel's is negative. Tenderness bilateral cubital tunnels elbow range of motion is preserved shoulders unremarkable hips range of motion preserved with tenderness over the left IT band. Right knees bony enlargement withouteffusion left knee bony degenerative changes Neurologic alert oriented appropriate balance intact. Normal hand swing. Affect pleasant oriented and appropriate Data reviewed Notes from urology radiation team at [facility] PCP visits and labs. Labs: Lab Requisition on 12/21/2020 Component Date Value ??? PSA 12/21/2020 1.6 55-year-old gentleman with a history of Crohn's disease dating to childhood. Clinically it sounds anders he did have some childhood arthritis. He has had intermittent steroid therapy over the years and may have had intermittent flareups of Crohn's arthritis. Currently complaints of hand pain ???There is a component of neurologic symptoms and the description of weakness ???We discussed possible causes including B12 deficiency or carpal tunnel which does not fit clinically with his exam ???I encouraged him to take his B12 regularly ???Reconsider further neurologic testing and CTS if not improved with B12 compliance CMC pain ???Bilateral CMC injection see procedure note below Knee pain ???Upcoming appointment with Dr. Irizarry Spoke with patient about his plan of care all questions answered. Follow-up as needed. Reviewed role of B12 in nerve function/numbness balance issues as consequence Reviewed cmc oa, information provided Rheumatology Outpatient Procedure Note Title of Procedure: Injection bilateral cmc joints Date Performed: 01/06/21 Time Performed: 15:37 Performed by: Ashley Massey MD Indications and/or Provisional Diagnosis: Bilateral cmc arthritis Consent: Written consent was obtained after patient was informed of the risks, benefits and alternatives. Final verification was Performed. Time out performed. Type of Anesthesia or Sedation: Local Procedure Technique: Site Marked. The area was prepped with alcohol and povidone-iodine . Cutaneous anesthesia, Subcutaneous anesthesia and Intra-articular anesthesia was attained using Ethyl Chloride and Lidocaine 1% w/out epinephrine. Synovial fluid was not removed. Injection of 10mg of Depomedrol (methylprednisolone acetate) and 0.5 cc lidocaine 1% without epinephrine was performed.into first the right cmc joint and then the left cmc joint Total dosage in vial: 40mg Total dosage administered: 20mg Total dosage of waste: 20mg Post Procedure Diagnosis and Findings: 1. Left hip pain 2. Chronic pain of right knee 3. Arthritis of carpometacarpal (CMC) joints of both thumbs Complications: None Patient advised to observe injection site for increasing redness pain or swelling. Ice 20 minutes on/20 minutes off for several cycles throughout the day. No immersion of injection site for 48 hours. Call with any fevers or concerns. Ashley Massey MD 01/06/2021 15:37 Ashley Massey MD 01/06/2021 14:18 documented in this encounter Plan of Treatment Not on filedocumented as of this encounter Visit Diagnoses Diagnosis Left hip pain - Primary Pain in joint, pelvic region and thigh Chronic pain of right knee Arthritis of carpometacarpal (CMC) joint s of both thumbs Bilateral thumb pain Numbness and tingling in both hands documented in this encounter Administered Medications Inactive Administered Medications - up to 3 most recent administrations Medication Order MAR Action Action Date Dose Rate Site methylPREDNISolone ACETATE Given 01/06/2021 15:43 EST 40 mg Left Hand (DEPO-MEDROL) injection 40 mg 40 mg, intra-articular, NOW X1, 1 dose, On [place] 01/06/21 at 1600, Routine documented in this encounter Orders Medications Ordered That Might Not Have Count Last Ord ered Date First Ordered Date Been Administered methylPREDNISolone ACETATE (DEPO-MEDROL) 1 021 injection 40 mg documented in this encounter Care Teams Manager Banquet Relationship Specialty Start Date End Date Natty Mckinney MD PCP - General 09/29/15 documented as of this encounter
--- OUTSIDE RECORDS SUMMARY | 2022-09-22 00:44 | XMS_ITS | Encounter Summary ---
:[address] [facility] Address [address] [place] [address] Care Team Providers Name Role Phone Natty Mckinney MD Primary Care Provider Encounter Details Date Type Department Care Team Description 06/08/2021 Lab Requisition [facility] Outr Resulting Lab, Pathology & Laboratory Provider General acute hospital [address] [id number] Social History Tobacco Use Types Packs/Day Years [...] Date/Time Associated Comments Diagnosis PSA TOTAL, Routine 06/07/2021 14:38 Results for this DIAGNOSTIC EDT procedure are i n the results section. documented in this encounter Results PSA TOTAL, DIAGNOSTIC (06/07/2021 14:38 EDT) Pathologist Sig nature PSA 1.7 0.0 - 3.5 ng/mL [facility] Specimen Blood - Venous blood (substance) Narrative [facility] - 06/08/2021 18:11 EDT NOTE: Serum PSA concentration should not be in terpreted as absolute evidence for the presence or absence of malignant disease. Assayed on Siemens ADVIA [employer]aur XPT usi ng chemiluminescent technology.??Values obtained by using different assay methods cannot be used interchangeably. Performing Organization Address City/State/[facility] Code Phon e Number [facility] [address] [place] [address] SERVICES documented in this encounter Visit Diagnoses Not on filedocumented in this encounter Care Teams Human Resources Benefits Specialist Relationship Specialty Start Date End Date Natty Mckinney MD PCP - General 09/29/15 documented as of this encounter
--- OUTSIDE RECORDS SUMMARY | 2022-09-22 00:44 | XMS_ITS | Encounter Summary ---
:1965 Author Organization [facility] Address [address] [place] [address] Care Team Providers Name Role Phone Unavailable Primary Care Provider Unavailable Encounter Details Date Type Department Care Team Description 04/20/2003 Hospital Encounter [facility] [place], [facility] [address] [place] [address] Social History Tobacco Use Types Packs/Day Years [...]
--- OUTSIDE RECORDS SUMMARY | 2022-09-22 00:44 | XMS_ITS | Encounter Summary ---
:1965 Author Organization [facility] Address [address] [place] [address] Care Team Providers Name Role Phone Natty Mckinney MD Primary Care Provider Encounter Details Date Type Department Care Team Description 01/04/2021 Abstract [facility] - [facility] Ashley Massey MD Rheumatology [address] [place] [address] [place] [address] (Wo rk) Social History Tobacco Use Types Packs/Day Years Used Date Current Every Day Smoker Sta rted: 1975 Tobacco Cessation: Counseling Given: Yes Comments: Cut down Intimate Partner Violence Answer [...] documented as of this encounter Progress Notes Tim Gee - 01/04/2021 1607 EST Abstraction done. Some areas unable to record. JMS documented in this encounter Plan of Treatment Not on filedocumented as of this encounter Visit Diagnoses Not on filedocumented in this encounter Historical Medications This list may reflect changes made after this encounter. Medication Sig Dispensed Refills Start Date End Date Ostomy Supplies by misc (non-drug; 0 combo route) route daily. [place] wafers part # 6697 Ostomy Supplies Use as directed 0 daily. Aquiles ostomy pouches part #4802 methadone (DOLOPHINE) 10 Take 10 mg by mouth 3 0 mg tablet times daily as needed for Pain. aspirin chewable 81 mg Take 81 mg by mouth 0 tablet daily. Delayed release tablet HYDROcodone-acetaminophen Take 1 Tab by mouth 3 0 (NORCO) 10-325 mg tablet times daily. Additional tab at dinner PRN diphenoxylate-atropine Take 20 mg by mouth 3 0 (LOMOTIL) 2.5-0.025 mg per times daily. 4 tabs tablet TID naloxone (NARCAN) 4 1 [place] by nasal 0 mg/actuation nasal spray route as needed for Opioid Reversal. ondansetron (ZOFRAN ODT) 4 Take 4 mg by mouth 0 mg disintegrating tablet every 6 hours. PRN diclofenac sodium Apply 1 % topically 0 (VOLTAREN) 1 % gel if needed for Pain. albuterol (VENTOLIN HFA) Inhale 180 mcg as 0 90 mcg/actuation inhaler directed every 4 hours. celecoxib (CELEBREX) 200 Take 200 mg by mouth 0 mg capsule 2 times daily. cyanocobalamin, vitamin Take 1,000 mcg by 0 B-12, 1,000 mcg/mL drops mouth every 4 weeks. nicotine (NICODERM CQ) 14 Place 14 mg onto the 0 mg/24 hr patch skin daily. nicotine polacrilex Take 4 mg by mouth 0 (NICORETTE) 4 mg gum every 2 hours. added in this encounter Care Teams Stamping Die Maker Bench Relationship Specialty Start Date End Date Natty Mckinney MD PCP - General 09/29/15 documented as of this encounter
--- OUTSIDE RECORDS SUMMARY | 2022-09-22 00:44 | XMS_ITS | Clinical Summary ---
:1965 Author Organization [facility] Address [address] [place] [address] Care Team Providers Name Role Phone Natty Mckinney MD Primary Care Provider Allergies No known active allergies Medications Medication Sig Dispensed Refills Start Date End Date Status nicotine polacrilex Take 4 mg by mouth 0 Active (NICORETTE) 4 mg gum every 2 hours. nicotine (NICODERM CQ) Place 14 mg onto 0 Active 14 mg/24 hr patch the skin daily. cyanocobalamin, Take 1,000 mcg by 0 Active vitamin B-12, 1,000 mouth every 4 mcg/mL drops weeks. celecoxib (CELEBREX) Take 200 mg by 0 Active 200 mg capsule mouth 2 times daily. albuterol (VENTOLIN Inhale 180 mcg as 0 Active HFA) 90 mcg/actuation directed every 4 inhaler hours. diclofenac sodium Apply 1 % 0 Ac tive (VOLTAREN) 1 % gel topically if needed for Pain. ondansetron (ZOFRAN Take 4 mg by mouth 0 Active ODT) 4 mg every 6 hours. PRN disintegrating tablet naloxone (NARCAN) 4 1 [place] by nasal 0 Active mg/actuation nasal route as needed spray for Opioid Reversal. diphenoxylate-atropine Take 20 mg by 0 Active (LOMOTIL) 2.5-0.025 mg mouth 3 times per tablet daily. 4 tabs TID HYDROcodone-acetaminop Take 1 Tab by 0 Active hen (NORCO) 10-325 mg mouth 3 times tablet daily. Additional tab at dinner PRN aspirin chewable 81 mg Take 81 mg by 0 Active tablet mouth daily. Delayed release tablet methadone (DOLOPHINE) Take 10 mg by 0 Active 10 mg tablet mouth 3 times daily as needed for Pain. Ostomy Supplies Use as directed 0 Active daily. [place] ostomy pouches part #8817 Ostomy Supplies by [facility] (non-drug; 0 Active combo route) route daily. Aquiles wafers part # 8732 Active Problems Problem Noted Date Vitamin B12 deficiency 01/05/2021 Malaise and fatigue 01/05/2021 Prostate cancer ([facility]CC-CMS) 01/05/2021 Pain of knee joint on movement 01/05/2021 Dyspnea on exertion 01/05/2021 Depression 01/05/2021 Elevated PSA 01/05/2021 Pulmonary nodule 01/05/2021 Bilateral thumb pain 01/05/2021 Raynaud's disease 01/05/2021 Toe pain 01/05/2021 History of pneumonia 01/05/2021 Postprandial vomiting 01/05/2021 Abdominal pain 01/05/2021 Smoker 01/05/2021 RUQ pain 01/05/2021 RBBB 01/05/2021 Knee pain, right 01/05/2021 Visual changes 01/05/2021 Sinus pain 01/05/2021 Pain in joint 01/05/2021 Other complications following infusion, transfusion an d therapeutic 01/05/2021 injection, subsequent encounter Syncope 01/05/2021 Ileostomy status ([facility]) 01/05/2021 Chronic abdominal pain 01/05/2021 Crohn's disease ([facility]) 01/05/2021 Encounters Date Type Specialty Care Team Description 09/18/2022 Lab Requisition Clinical Laboratory Outr Resulting Lab , Provider from Last 3 Months Surgical History Surgery Date Site/Laterality Comments SMALL INTESTINE SURGERY ileostom y 1988 due to intractable crohn's flare Medical History Medical History Date Comments Crohn disease ([facility]) ([facility]) Prostate CA ([facility]) ([facility]) radiation [facility] Knee osteoarthritis Family History Medical History Relation Name Comments Crohn's Disease Son Relation Name Status Comments Son Social History Tobacco Use Types Packs/Day Years Used Date Current Every Day Smoker 1.5 Sta rted: 1975 Smokeless Tobacco: Never Used Tobacco Cessation: Counseling Given: Yes Comments: Cut [...] Body Mass Index 19.9 01/06/2021 1407 EST Plan of Treatment Health Maintenance Due Date Last Done Comments Hepatitis C Screen 1965 COVID-19 Vaccine (#1) 1965 Pneumococcal Immunization (1 - PCV) 1970 Procedures Procedure Name Priority Date/Time Associated Comments Diagnosis T3 FREE Routine 09/18/2022 11:00 Results for this EDT procedure are i n the results section. PSA TOTAL, Routine 09/18/2022 11:00 Results for this DIAGNOSTIC EDT procedure are i n the results section. from Last 3 Months Results T3 FREE (09/18/2022 11:00 EDT) Pathologist Sig fortino T3, Free 3.3 2.8 - 5.3 pg/mL [facility] Specimen Blood - Venous blood (substance) Performing Organization Address City/State/ZIP Code Phon e Number [facility] [address] [place] [address] SERVICES PSA TOTAL, DIAGNOSTIC (09/18/2022 11:00 EDT) Pathologist Sig fortino PSA 1.1 <=3.5 ng/mL [facility] Specimen Blood - Venous blood (substance) Narrative [facility] - 09/19/2022 19:58 EDT NOTE: Serum PSA concentration should not be in terpreted as absolute evidence for the presence or absence of malignant disease. Assayed on Siemens ADVIA Centaur XPT usi ng chemiluminescent technology.??Values obtained by using different assay methods cannot be used interchangeably. Performing Organization Address City/State/ZIP Code Phon e Number [facility] [address] [place] [address] SERVICES from Last 3 Months Insurance Payer Benefit Plan / Subscriber ID Effective Phone Address T ype Group Dates [facility] [id number] 2020-Pres [address] [facility] [place] [id number] Advantage GL MEDICARE [place] [address] Krishan Monte Personal/Family Self 1965 [address] [place] [address] Krishan Monte Personal/Family Self 1965 [address] [place] [address] Care Teams Alumni Relations Manager Relationship Specialty Start Date End Date Natty Mckinney MD PCP - General 09/29/15
--- OUTSIDE RECORDS SUMMARY | 2022-09-22 00:45 | XMS_ITS | Encounter Summary ---
:1965 Author Organization [facility] Address [address] [place] [address] Care Team Providers Name Role Phone Unavailable Primary Care Provider Unavailable Encounter Details Date Type Department Care Team Description 02/23/2003 Results Only *[facility] Gold Chavez, Gastroenterology - [place] MICHEL [place] [address] [place] [address] Social History Tobacco Use Types Packs/Day Years [...] Procedure Name Priority Date/Time Associated Comments Diagnosis IBC Routine 02/23/2003 11:57 Results for this EDT procedure are i n the results section. PROTIME Routine 02/23/2003 11:57 Results for this EDT procedure are i n the results section. COMPLETE BLOOD COUNT Routine 02/23/2003 11:57 Res ults for this AND DIFFERENTIAL EDT procedure a re in the results section. IRON Routine 02/23/2003 11:57 Results for this EDT procedure are i n the results section. GGT Routine 02/23/2003 11:57 Results for this EDT procedure are i n the results section. FOLATE Routine 02/23/2003 11:57 Results for this EDT procedure are i n the results section. FERRITIN Routine 02/23/2003 11:57 Results for this EDT procedure are i n the results section. VITAMIN B12 Routine 02/23/2003 11:57 Results for this EDT procedure are i n the results section. COMPREHENSIVE Routine 02/23/2003 11:57 Results fo r this METABOLIC PANEL (CMP) EDT proced ure are in the results section. documented in this encounter Results PROTIME (02/23/2003 11:57 EDT) Pro Time 11.8Comment: Coumadin N 10.9 - 13.9 [facility] B secs I.N.R. 0.9 0.9 - 1.1 [facility] Comment: Ratio Moderate Intensity Coumadin INR = 2.0-3.0 Adjustments in anticoagulant therapy dose should be based upon the INR and NOT the Pro Time. Coumadin N Specimen Performing Organization Address City/[facility]/ZIP Code Phon e Number [facility] [address] [place] [address] SERVICES [facility] [address] [place] [address] (ABNORMAL) IRON (02/23/2003 11:57 EDT) Pathologist Sig nature Iron 38 (L) 70 - 180 ug/dl [facility] Specimen Performing Organization Address [facility]/ZIP Code Phon e Number [facility] [address] [place] [address] SERVICES [facility] [address] [place] [address] (ABNORMAL) IBC (02/23/2003 11:57 EDT) Pathologist Sig nature TIBC 499 (H) 225 - 425 ug/dl [facility] Specimen Performing Organization Address City/[facility]/ZIP [facility] Phon e Number [facility] [address] [place] [address] SERVICES [facility] [address] [place] [address] (ABNORMAL) GGT (02/23/2003 11:57 EDT) Pathologist Sig nature GGT 79 (H) 15 - 73 U/L [facility] Specimen Performing Organization Address City/[facility]/ZIP Code Phon e Number [facility] [address] [place] [address] SERVICES [facility] [address] [place] [address] FOLATE (02/23/2003 11:57 EDT) Pathologist Sig nature Folate >24.0 ng/mL [facility] Comment: Deficient: ??Less than 3.4 ng/mL Indeterminate: ??3.4-5.4 ng/mL Normal: ??Greater than 5.4 ng/mL Note new reference range. Specimen Performing Organization Address City/[facility] Phon e Number [facility] [address] [place] [address] SERVICES [facility] [address] [place] [address] (ABNORMAL) FERRITIN (02/23/2003 11:57 EDT) Pathologist Sig [facility] Ferritin 40 (L) 42 - 313 ng/ml [facility] Specimen Performing Organization Address [facility]/ZIP [facility] Phon e Number [facility] [address] [place] [address] SERVICES [facility] [address] [place] [address] COMPREHENSIVE METABOLIC PANEL (CMP) (02/23/2003 11:57 EDT) Pathologist Sig [facility] Potassium 4.4 3.5 - 5.0 mEq/L [facility] Sodium 141 136 - 145 mEq/L [facility] Chloride 104 96 - 110 mEq/L [facility] CO2 26 24 - 30 mEq/L [facility] Total Alkaline 118 38 - 126 U/L [facility] Phosphatase Bilirubin, Total 0.2 0.2 - 1.3 mg/dl [facility] AST 33 8 - 50 U/L [facility] ALT 48 15 - 75 U/L [facility] Albumin 4.8 3.0 - 5.5 g/dl [facility] Total Protein 7.2 6.0 - 8.5 g/dl [facility] Creatinine 1.2 0.7 - 1.5 mg/dl [facility] BUN 11 10 - 26 mg/dl [facility] Calcium 9.4 8.5 - 10.5 mg/dl [facility] Calculated Calcium 9.0 8.5 - 10.5 mg/dl [facility] Glucose, Serum 104 70 - 110 mg/dl [facility] Albumin/Globulin Ratio 2.0 [facility] Specimen Performing Organization Address City/[facility]/ZIP Code Phon e Number [facility] [address] [place] [address] SERVICES [facility] [address] [place] [address] (ABNORMAL) HEMAGRAM AND DIFFERENTIAL (02/23/2003 11:57 EDT) WBC 9.47 4.0 - 10.4 [facility] K/cmm RBC 4.30 (L) 4.36 - 5.78 [facility] M/cmm Hemoglobin 14.3 13.8 - 17.3 [facility] gm/dl HCT 42.0 39.5 - 50.2 % [facility] MCV 98 (H) 81 - 95 fl [facility] MCH 33.2 (H) 27.6 - 33.0 pg [facility] MCHC 34.0 32.8 - 36.4 [facility] gm/dl PLT 222 141 - 320 K/cmm [facility] RDW-CV 16.9 (H) 11.8 - 14.1 % [facility] Neutrophils 79 45.5 - 79.7 % [facility] Bands 1 % [facility] Lymphocytes 15 15.0 - 46.8 % [facility] Monocytes 3 1.8 - 12.0 % [facility] Eosinophils 2 0.6 - 6.9 % [facility] ABS Neutrophils 7.49 2.20 - 8.85 [facility] K/cmm ABS Bands 0.09 K/cmm [facility] ABS Lymphs 1.42 1.09 - 3.30 [facility] K/cmm ABS Monocytes 0.28 0.1 - 0.8 K/cmm [facility] ABS Eosinophils 0.19 0.03 - 0.61 [facility] K/cmm RBC Morphology 1+ Anisocytosis [facility] Type of Diff: Manual [facility] Specimen Performing Organization Address City/[facility]/ZIP Code Phon e Number [facility] [address] [place] [address] SERVICES [facility] [address] [place] [address] (ABNORMAL) VITAMIN B12 (02/23/2003 11:57 EDT) Pathologist Sig nature Vitamin B-12 >2000 (H) 250 - 1100 pg/ml [facility] Specimen Performing Organization Address City/State/ZIP Code Phon e Number [facility] [address] [place] [address] SERVICES [facility] [address] [place] [address] documented in this encounter Visit Diagnoses Not on filedocumented in this encounter
--- OUTSIDE RECORDS SUMMARY | 2022-09-22 00:45 | XMS_ITS | Encounter Summary ---
:1965 Author Organization [facility] Address [address] [place] [address] Care Team Providers Name Role Phone Unavailable Primary Care Provider Unavailable Encounter Details Date Type Department Care Team Description 12/04/2001 Results Only [facility] - Brittny Marie, Chr marilyn, conversion DO [address] BERNICE MEIER [address] [place], [place] [id number] [place] [id number] (Wo rk) Social History Tobacco Use Types [...] Associated Diagnosis Comme nts SURGICAL PATHOLOGY Routine 12/04/2001 0:00 EST Re sults for this procedure are i n the results section. documented in this encounter Results SURGICAL PATHOLOGY (12/04/2001 0:00 EST) Pathology Report: SURGICAL PATHOLOGY REPORT [facility] Reports generated via electronic interface contain zechariah ginal data; LAB however they are lacking the format of the original re port. Caution should be taken when reading/interpreting unfo rmatted reports. Name: ? KRISHAN MONTE ? Accession #: ? [id number] ? : ? 1965 (Age: 36) ??M ? Collect Date: ? 12/04/2001 ? Location: ? [facility] ? Receive Date: ? 002 ? Provider: MIRNA MARIE DO Copy to: SITA SALOMON MD ? Final Pathologic Diagnosis: ? Tissue from perianal region, resection: 1. ?Fibromuscular, skin, and subcutaneous tissue with: ? - Fibrosis. - Granulation tissue. - Acute and chronic inflammation with giant cell react ion. Document reviewed and electronically signed by: Marina Fox MD Report ??Date: 12/06/2001 17:06 By the signature above, the attending physician certif ies that he/she has personally conducted a gross and/or microscopic examin ation of the described specimens and rendered or confirmed the above diagnosi s. Specimen(s) Received: ? Perianal fistula triad Clinical History: ? Perianal fistula Gross Description: ? Received in formalin labelled Fo ster and perianal fistula tract are five blackman-yellow to white fir m indurated rubbery soft tissues ranging from 0.6 x 0.5 x 0.4 cm to 2.5 x 2.4 x 0.7 cm. ??The largest tiss ue has an overlying blackman-olivas wrinkled skin ellipse measuring 2.0 0.5 cm. The ellipse has a central linear crease. ??The cut len faces are blackman-white firm and fibrous. ??Also received is a blackman-olivas wrinkled curling 2.2 x 0.4 cm portion of skin with no discrete lesions identified on the epidermal surface. The speci mens are inked and approximately 75% of the specimen is submitted as foll ows: BLOCK KOHLER A1, A2 ?Smaller tissues A3 ?Largest tissue A4 ?Pole Framer Machine additional skin (Brandon Easton)/mms End of Report Specimen Performing Organization Address City/State/ZIP Code Phon e Number [facility] [address] [place] [address] SERVICES [facility] [address] [place] [address] documented in this encounter Visit Diagnoses Not on filedocumented in this encounter
[2022-09-22] MEDS: Omnipaque 350 MG/ML 100 ML BTL IJ (09:42)
[2022-09-22] MEDS: Barium Sulfate 2% W/V-Creamy Vanilla Smoothie 450 ML BTL PO (09:43)
[2022-09-22] MEDS: Normal Saline Flush 10 ML SYR IVP (09:43)
== END 2022-09-22 01:00 ==
LOC: DI 00:40
PROVIDERS: PCP Family Medicine; Visit Provider Family Medicine
DX: C61 Malignant neoplasm of prostate (principal); R53.83 Other fatigue
CPT/HCPCS: 74177; J3490

== ENCOUNTER 2022-10-10 02:04 | Outpatient (CLI) | payer MEDICARE, SELFPAY ==
--- NOTE | 2022-10-10 14:30 | DI.CTLCSR_ITS ---
Exam(s) CT CHEST LUNG CANCER SCREEN EXAM: CT CHEST LUNG CANCER SCREEN CLINICAL HISTORY: SMOKER, F17.210; LUNG NODULE, R91.8; [facility], Z00.00 TECHNIQUE: Imaging Protocol: Axial computed tomography images with coronal and sagittal reformatted images were created and reviewed COMPARISON: CT CT CHEST LUNG CANCER SCREEN from 06/14/[address] ABDOMEN PELVIS W from 09/22/2022 FINDINGS: Tracheobronchial tree: Patent where visualized. Pulmonary parenchyma: No consolidation or dominant measurable mass. No architectural distortion. Lung Nodules: There is a stable 3 mm left upper lobe pulmonary nodule. No new pulmonary nodules are present. Mediastinum and Claudia: No dominant adenopathy or fluid collection. The esophagus is unremarkable. Thyroid gland: Unremarkable. Lymph nodes: Unremarkable. Pleura: No effusion or pneumothorax. Heart: The heart is not dilated. Coronary artery calcifications are present. No pericardial effusion . Aorta: Thoracic aorta non-dilated.Atherosclerosis is present. Upper abdomen: Unremarkable. Soft Tissues: Bilateral gynecomastia. Bones: Within normal limits. IMPRESSION: Stable pulmonary nodule. Lung RADS Cat 2 - Benign Appearance / Behavior: Nodules with a very low likelihood of becoming a clin ically active cancer due to size or lack of growth Lung-RADS 1.0 CATEGORIES: Category 0 - Prior chest CT exam(s) being located for comparison. Category 1 - Annual screening in 12 months. No nodules or definitely benign nodules. Category 2 - Annual screening in 12 months. Benign appearance. Nodules with low likelihood of becomin g active cancer. Category 3 - 6-month follow-up. Probably benign. Short-term follow-up suggested. Nodules with low lik elihood of becoming active cancer. Category 4A - 3-month follow-up and CT/PET if >8 mm in size. Suspicious finding. Findings which requi re additional testing. Category 4B - Findings which require additional testing and tissue sampling. Suspicious finding. Category 4X - Category 3 or 4 nodules with additional features or imaging findings that increases the suspicion of malignancy. Modifier S- Potentially clinically significant finding. (Non lung cancer) RADIATION DOSE DELIVERED: Total DLP !Error CTDIvol Total DLP !Error CTDIvol DATA REPOSITORY: All CT scans at this facility are submitted to the National Radiology Data Registry (NRDR) Dose Index Registry (DIR) with the [employer] (ACR). RADIATION OPTIMIZATION: All CT scans at this facility use at least one of these dose optimization te chniques: automated exposure control; mA and/or kV adjustment per patient size (includes targeted exa ms where dose is matched to clinical indication); or iterative reconstruction.
== END 2022-10-10 02:24 ==
PROVIDERS: PCP Family Medicine; Visit Provider Family Medicine
DX: F17.210 Nicotine dependence, cigarettes, uncomplicated (principal); Z12.2 Encounter for screening for malignant neoplasm of respiratory organs; R91.1 Solitary pulmonary nodule
CPT/HCPCS: 71271

== ENCOUNTER → 2022-10-23 13:18 | Outpatient (BNVA) | payer MEDICARE, SELFPAY | PROVIDERS: PCP Family Medicine; Referring Provider Family Medicine; Visit Provider Surgery | DX: K50.90 Crohn's disease, unspecified, without complications (principal); K82.9 Disease of gallbladder, unspecified | CPT/HCPCS: 99215 ==

== ENCOUNTER 2022-10-26 01:03 | Outpatient (CLI) | payer MEDICARE, SELFPAY ==
--- NOTE | 2022-10-26 06:30 | DI.US_ITS ---
Exam(s) US ABDOMEN LIMITED EXAM: US ABDOMEN LIMITED CLINICAL HISTORY: ? cholelithiasis,abd pain, r10.9 TECHNIQUE: Ultrasound abdomen performed using standard protocol. COMPARISON: CT CT ABDOMEN PELVIS W from 09/22/2022 FINDINGS: PANCREAS: Normal where visualized. LIVER: Normal. Hepatopedal flow in the Portal Vein. The liver measures in 15.1 cm length. GALLBLADDER:Multiple mobile gallstones are present. No evidence of wall thickening. No pericholecyst ic fluid identified. BILIARY SYSTEM: Common bile duct measures 7.7 mm. No intrahepatic biliary ductal dilation. SHAIKH'S SIGN: Negative. RIGHT KIDNEY: Kidney is normal in size. No evidence of renal calculi. No evidence of hydronephrosis. No renal mass or cyst identified. ASCITES: None seen. IMPRESSION: Cholelithiasis. No findings to suggest sonographically acute cholecystitis. DATA REPOSITORY:
== END 2022-10-26 01:23 ==
LOC: DI 01:04
PROVIDERS: PCP Family Medicine; Visit Provider Surgery
DX: K80.20 Calculus of gallbladder without cholecystitis without obstruction (principal)
CPT/HCPCS: 76705

== ENCOUNTER 2022-12-01 00:45 | Outpatient (CLI) | payer MEDICARE, SELFPAY ==
[2022-12-01] MEDS: Gadoterate meglumine 20 ML VIAL IVP (08:23)
--- NOTE | 2022-12-01 09:00 | DI.MRI_ITS ---
Exam(s) MR ABDOMEN WO/W EXAM: MR ABDOMEN WO/W CLINICAL HISTORY: hypoenhancing inferior right hepatic lesion,f/uabnl ct,r93.5 TECHNIQUE: Multiplanar multisequence MRI of the Abdomen was performed. CONTRAST MATERIAL: IV Contrast: 12 mL of Dotarem contrast administered. COMPARISON: CT CT ABDOMEN PELVIS W from 09/22/2022 US US ABDOMEN LIMITED from 10/26/2022 FINDINGS: Liver: Unremarkable. There is no evidence of a hepatic mass. On the coronal imaging there appears to be averaging with the adjacent kidney on the inferior images of the liver. Pancreas: Unremarkable. Gallbladder and Bile Ducts: There is cholelithiasis. There is no biliary ductal dilatation. On the coronal view there appears to be a 3 mm stone in the mid common bile duct. No obstruction is identif ied. (Series 3001, image 10). Adrenals: Unremarkable. Kidneys: Unremarkable. Spleen: Unremarkable. Bowel: Unremarkable. Aorta: Unremarkable. Soft Tissues: Unremarkable. Bone: Unremarkable. Lymph Nodes: Unremarkable. IMPRESSION: 1. No evidence of a hepatic mass. 2. Cholelithiasis with findings suggestive of choledocholithiasis. No biliary ductal dilatation. DATA REPOSITORY:
== END 2022-12-01 01:05 ==
LOC: DI 00:46
PROVIDERS: PCP Family Medicine; Visit Provider Surgery
DX: R10.9 Unspecified abdominal pain (principal); R16.0 Hepatomegaly, not elsewhere classified; R63.4 Abnormal weight loss; R93.5 Abnormal findings on diagnostic imaging of other abdominal regions, including retroperitoneum; K80.20 Calculus of gallbladder without cholecystitis without obstruction
CPT/HCPCS: 74183

== ENCOUNTER 2023-01-11 10:39 | Outpatient (REF) | payer MEDICARE, SELFPAY ==
[2023-01-11 15:07] LABS: HCT 43.1 % (40.0-50.0); HGB 13.9 g/dL (13.5-17.5); MCH 31.2 pg (27.0-33.0); MCHC 32.3 % (32.0-36.0); MCV 97 fL (80-95); MPV 11.4 fL (8.0-11.0); Platelet Count 252 10^3/uL (130-400); RBC 4.46 10^6/uL (4.36-5.78); RDW 12.1 % (11.8-14.1); RDW-SD 43.7 fL; WBC 10.31 10^3/uL (4.4-10.8)
[2023-01-11 15:12] LABS: ESR 11 mm/hr (0-20)
[2023-01-11 15:43] LABS: Vitamin D 25 Total 10.9 ng/mL (30-100)
[2023-01-11 15:56] LABS: ALT 34 U/L (16-63); AST 29 U/L (15-37); Albumin 4.6 g/dL (3.4-5.0); Alkaline Phosphatase 141 U/L (46-116); Anion Gap 7.5 mmol/L (3-11); BUN 12 mg/dL (7-18); Bilirubin, Total 0.5 mg/dL (0.2-1.0); CO2 28.5 mmol/L (21.0-32.0); CREATININE 1.1 mg/dL (0.70-1.30); Calcium 9.7 mg/dL (8.5-10.1); Chloride 103 mmol/L (98-107); Estimated GFR 77.81 (mL/min/1.73m2); Glucose 86 mg/dL (74-106); Potassium 4.5 mmol/L (3.5-5.1); Sodium 139 mmol/L (136-145); TSH (W/Ref FT4) 1.55 uIU/mL (0.36-3.74); Total Protein 7.3 g/dL (6.4-8.2); Vitamin B12 601 pg/mL (193-986)
[2023-01-11 16:09] LABS: C-Reactive Protein 0.15 mg/dL (0.0-0.3); PHOSPHORUS 3.4 mg/dL (2.6-4.7)
== END 2023-01-11 10:40 | disposition home or self-care (01) ==
LOC: NCHCN 10:39
PROVIDERS: PCP Family Medicine; Visit Provider Family Medicine
DX: D64.9 Anemia, unspecified (principal); R63.4 Abnormal weight loss; K50.90 Crohn's disease, unspecified, without complications; R79.89 Other specified abnormal findings of blood chemistry
CPT/HCPCS: 80053; 82306; 85027; 85652; 82607; 84100; 84443; 86140

== ENCOUNTER 2023-02-26 11:25 | Emergency (ER) | payer MEDICARE, SELFPAY ==
[2023-02-26 11:30] VITALS: BP 155/88; PULSE 90; RESP 16; TEMP 36.4; O2SAT 99
--- NOTE | 2023-02-26 11:38 | W.ED.GENAD ---
Discharge Plan Disposition Patient Disposition: Home Condition: Good Discharge Details Chief Complaint: GenMedical Clinical Impression: Weakness, Dehydration Primary Care Provider: Natty Mckinney V ED Provider: Cristobal Donohue Home Meds and New Rx's Prescriptions: No Action ondansetron HCl [Zofran] 4 mg Tablet 4 mg PO Q6H PRN hydrocodone-acetaminophen 10-325 mg Tablet 2 tab PO Q8H PRN aspirin 81 mg tablet,delayed release (DR/EC) 81 mg PO DAILY diphenoxylate-atropine [Lomotil] 2.5-0.025 mg tablet 4 tab PO TID albuterol sulfate [Ventolin HFA] 90 mcg/actuation HFA aerosol inhaler 2 puff inhalation Q4H PRN gabapentin 100 mg capsule 100 mg PO TID butenafine [Lotrimin Ultra] 1 % cream 1 applic topical DAILY Centrum Men 8 mg iron- 200 mcg-600 mcg tablet PO ferrous sulfate 325 mg (65 mg iron) tablet 325 mg PO DAILY cyanocobalamin (vitamin B-12) 1,000 mcg/mL kit 1,000 mcg subcut .[id number] methadone [Dolophine] 10 mg tablet 20 mg PO Q12H Patient Comments: Pt. states he takes this medication 0900pm 0200am 0400am albuterol sulfate [Ventolin HFA] 90 mcg/actuation HFA aerosol inhaler 1 inh inhalation ONCE PRN ondansetron HCl 4 mg tablet 4 mg PO Q8H nutritional supplements [Boost Max] PO celecoxib [Celebrex] 200 mg capsule 200 mg PO BID baclofen 10 mg tablet 10 mg PO BID nicotine [Nicoderm CQ] 14 mg/24 hr Patch 24 Hour 1 patch TRANSDERMAL DAILY diclofenac sodium [Voltaren] 1 % Gel 2 - 4 g TOPICAL QID naloxone [Narcan] 4 mg/actuation [place],Non-Aerosol 1 spray INTRANASAL Q3M Discharge Instructions Instructions: Dehydration (ED) Additional Instructions: At this time your laboratory work-up shows no abnormality for electrolytes, stable hemoglobin level, and normal thyroid function. You have been rehydrated with 2 L of saline and lactated Ringer's. Please follow-up closely with your [place] line attendant and your primary care provider for further discussion of TPN. If you notice any worsening of your symptoms, or any new symptoms such as vomiting, diarrhea, fever, chills, shortness of breath, chest pain, numbness, weakness, or fainting , please return immediately to the emergency department for reevaluation. Please follow up with your primary care provider as soon as possible for reassessment and reevaluation. As always, it was a pleasure participating in your medical care today. Referrals: Natty Mckinney MD [Primary Care Provider] - Medical Decision Making 57-year-old male with a past medical history of short gut syndrome, Crohn's disease with short gut syndrome after ileostomy, Raynaud's disease, who is being monitored and managed by nutrition, who has chronic abdominal pain from his conditions over the last 20 to 30 years, and to also has been having chronic frequent stooling over the last 4 to 5 months. This is caused an increase in weight loss, and currently nutritional services is recommending transition to home TPN every night or every other night. Patient denies any acute component to any of these aspects. He does admit to occasional dark stool which she states has been present for the last few years. He does admit though that over the last few months he has been increasingly fatigued and feels like he is walking through cement whenever he performs activities. He feels that as he has lost weight his energy has notably diminished. He has no other complaints though. No other focal pain. No chest pain. No arm neck or shoulder pain with exertion. Additionally the patient is extremely clear that he does not want further work-up at this time for his abdomen in general, he does not want further work-up for any other problems, he is only here to get some fluids and get a little bit more energy. Physical exam demonstrates a thin and slightly cachectic male, dry mucous membranes. Vital stable. Abdomen nonsurgical. Respecting the patient's wishes we will focus on electrolyte abnormalities, we will check his hemoglobin level, we will rehydrate starting with a liter of lactated Ringer's, will monitor closely and reassess. 1:34 PM Laboratory work-up has returned and is normal. Hemoglobin stable, electrolytes normal, renal function good, thyroid function normal. Patient feels well and is requesting to go home. Nutrition has come and discussed the case with the patient. They will be following up with him on an outpatient basis for further discussion of continued TPN and supplements. Patient shows no other signs of acute component at this time. We did discuss further evaluation with cardiac work-up, but the patient states that this has been done he does not want this done now. We will respect the patient's wishes with the patient understanding that further work-up may always add new details which could prevent significant harm. I have extensively reviewed the treatment plan and discharge instructions with the patient. I have addressed all patient concerns at this time. The patient was made aware of what symptoms to monitor for that would warrant a return to the emergency department. Discussed the plan with the patient, they demonstrate verbal understanding and agreement with our assessment and plan at this time. The documentation in this chart was dictated using noodls dictation software. Please excuse any dictation errors. HPI General Date/Time Provider Initiated Documentation: 02/26/23 11:36. HPI Narrative: 57-year-old male with a past medical history of short gut syndrome, Crohn's disease with short gut syndrome after ileostomy, Raynaud's disease, who is being monitored and managed by nutrition, who has chronic abdominal pain from his conditions over the last 20 to 30 years, and to also has been having chronic frequent stooling over the last 4 to 5 months. This is caused an increase in weight loss, and currently nutritional services is recommending transition to home TPN every night or every other night. Patient denies any acute component to any of these aspects. He does admit to occasional dark stool which she states has been present for the last few years. He does admit though that over the last few months he has been increasingly fatigued and feels like he is walking through cement whenever he performs activities. He feels that as he has lost weight his energy has notably diminished. He has no other complaints though. No other focal pain. No chest pain. No arm neck or shoulder pain with exertion. Additionally the patient is extremely clear that he does not want further work-up at this time for his abdomen in general, he does not want further work-up for any other problems, he is only here to get some fluids and get a little bit more energy. Related Data Home Medications Medication Instructions Recorded Confirmed diphenoxylate-atropine 2.5 4 tab PO TID 12/08/20 02/26/23 mg-0.025 mg tablet (Lomotil) albuterol sulfate 90 mcg/actuation 2 puff inhalation Q4H PRN 01/19/21 02/26/23 aerosol inhaler (Ventolin HFA) diclofenac sodium 1 % topical gel 2 - 4 g topical QID 02/07/21 02/26/23 (Voltaren) naloxone 4 mg/actuation nasal 1 spray intranasal Q3M 02/07/21 02/26/23 spray (Narcan) nicotine 14 mg/24 hr daily 1 patch transdermal DAILY 02/07/21 02/26/23 transdermal patch (Nicoderm CQ) aspirin 81 mg tablet,delayed 81 mg PO DAILY 03/23/21 02/26/23 release hydrocodone 10 mg-acetaminophen 2 tab PO Q8H PRN 03/23/21 02/26/23 325 mg tablet ondansetron HCl 4 mg tablet 4 mg PO Q6H PRN 03/23/21 02/26/23 (Zofran) gabapentin 100 mg capsule 100 mg PO TID 11/02/21 02/26/23 butenafine 1 % topical cream 1 applic topical DAILY 10/09/22 02/26/23 (Lotrimin Ultra) cyanocobalamin (vitamin B-12) 1,000 mcg subcut .[id number] 10/09/22 02/26/23 1,000 mcg/mL injection kit ferrous sulfate 325 mg (65 mg 325 mg PO DAILY 10/09/22 02/26/23 iron) tablet multivit,Ca,min-iron 8 mg-folic tab PO 10/09/22 02/01/23 acid 200 mcg-lycopene 600 mcg tablet (Centrum Men) methadone 10 mg tablet (Dolophine) 20 mg PO Q12H 10/23/22 02/26/23 albuterol sulfate 90 mcg/actuation 1 inh inhalation ONCE PRN 12/26/22 02/26/23 aerosol inhaler (Ventolin HFA) baclofen 10 mg tablet 10 mg PO BID 12/26/22 02/26/23 celecoxib 200 mg capsule (Celebrex) 200 mg PO BID 12/26/22 02/26/23 nutritional supplements [Boost Max] PO 12/26/22 02/01/23 ondansetron HCl 4 mg tablet 4 mg PO Q8H 12/26/22 02/26/23 Allergies Allergy/AdvReac Type Severity Reaction Status Date / Time No Known Allergies Allergy Verified 02/26/23 11:34 General Stated Complaint: GenMedical GENET: 3 Review of Systems All systems reviewed & are unremarkable except as noted in HPI and below PFSH All Active Problems (Updated 02/26/23 @ 13:31 by Cristobal Donohue DO) Weakness (Acute) Dehydration (Acute) Liver mass (Acute) Unintended weight loss (Acute) Methadone use (Acute) Elevated liver function tests (Acute) Disease of gallbladder, unspecified (Acute) Degenerative arthritis of carpometacarpal joint of thumb (Acute) Ulnar abutment syndrome of both wrists (Acute) Pain in elbow joint (Acute) Arthrofibrosis of total knee arthroplasty (Acute) RIGHT S/P Manipulation: 04/20/2021 History of total right knee replacement (Acute 02/09/21) Internal derangement of right knee (Acute) Osteoarthritis of right knee (Acute) Vitamin B12 deficiency (Acute) Fatigue (Acute) Crohn's disease (Chronic) Ileostomy status (Acute) Syncope (Chronic) Joint pain (Acute) Sinus pain (Acute) Vision changes (Acute) Abdominal pain (Acute) Smoker (Acute) Postprandial vomiting (Acute) Raynaud's disease (Acute) Depression (Chronic) Dyspnea on exertion (Acute) Medical History Anemia Atrial enlargement, left Bilateral thumb pain Breast lump Chronic prescription opiate use Complaint of pain of toe Dyspnea Elevated PSA Encounter for therapeutic drug level monitoring Gallstones Hematuria Hip pain History of pneumonia Neck pain Other complications following infusion, transfusion and therapeutic injection, subsequent encounter Other postprocedural complications and disorders of genitourinary system post procedure testicular pain Pain of knee joint on movement Paresthesia Pelvic pain Preoperative examination Preventative health care Prostate cancer Pulmonary nodule Radiculopathy affecting upper extremity RBBB Right knee pain RUQ pain Situational depression Tongue lesion Surgical History Cataract extraction status Hx of total knee arthroplasty Social History Smoking/Tobacco Use Status: Current every day Tobacco Type: cigarettes Tobacco: How many years used: 44 Smoking risk assessment performed?: Yes Alcohol Intake: never Drug use: Socially Substance use type: former substance user and marijuana Details: 3-4 months used marijuana Household members: none Housing: apartment current occupation: Disabled Current gender identity: male Do you feel safe at home: Yes Do you feel safe in your relationship?: Yes Exam Narrative Exam Narrative: 1.Const: Thin, somewhat cachectic appearing 2.Eyes: PERRL, no conjunctival injection, and symmetrical lids. 3.ENT: Atraumatic external nose and ears. Dry MM. Neck: Symmetric, trachea midline, No thyromegaly. 4.CVS: +S1/S2, No murmurs or gallops. Peripheral pulses 2+ and equal in all extremities. Brisk capillary refill in all extremities. 5.RESP: Unlabored respiratory effort. Clear to auscultation bilaterally. No wheezes rales or rhonchi 6.GI: Soft, nondistended. Ostomy is in place. Ostomy is pink. No guarding or rebound 7.MSK: Normocephalic/Atraumatic, Extremities w/o deformity or ttp No cyanosis or clubbing, Normal movement of all extremities 8.Skin: Warm, Dry. No rashes or lesions. 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 Sensation grossly intact, no focal neurologic deficits. 10.Psych: (AAO) x3. Appropriate mood and affect Course Vital Signs Vital signs: Vital Signs Temperature 36.4 C 02/26/23 11:30 Pulse 90 02/26/23 11:30 Respiratory Rate 16 02/26/23 11:30 Blood Pressure 155/88 H 02/26/23 11:30 Pulse Oximetry 99 02/26/23 11:30 Temperature 36.4 C 02/26/23 11:30 Temperature Source Oral 02/26/23 11:30 Pulse 90 02/26/23 11:30 Respiratory Rate 16 02/26/23 11:30 Respiratory Effort Normal 02/26/23 11:32 Blood Pressure 155/88 H 02/26/23 11:30 Blood Pressure Position Sitting 02/26/23 11:30 Pulse Oximetry 99 02/26/23 11:30 Oxygen Delivery Method Room Air 02/26/23 11:30 Oxygen Flow Rate 0 02/26/23 11:30 Pain Level 0 02/26/23 11:30
[2023-02-26 11:49] LABS: Abs Immature Grans 0.05 10^3/uL (0.0-0.06); Absolute Basophil Count 0.06 10^3/uL (0.0-0.2); Absolute Eosinophil Count 0.07 10^3/uL (0.0-0.7); Absolute Lymphocyte Count 1.93 10^3/uL (1.2-3.4); Absolute Monocyte Count 0.62 10^3/uL (0.1-0.8); Absolute Neutrophil Count 8.56 10^3/uL (1.2-6.7); Basophils % 0.5; Eosinophils % 0.6; HCT 41.1 % (40.0-50.0); HGB 13.7 g/dL (13.5-17.5); Immature Grans % 0.4; Lymphocytes % 17.1; MCH 31.6 pg (27.0-33.0); MCHC 33.3 % (32.0-36.0); MCV 95 fL (80-95); MPV 10.4 fL (8.0-11.0); Monocytes % 5.5; Neutrophils % 75.9; Platelet Count 235 10^3/uL (130-400); RBC 4.34 10^6/uL (4.36-5.78); RDW 12.8 % (11.8-14.1); RDW-SD 44.5 fL; WBC 11.28 10^3/uL (4.4-10.8)
[2023-02-26] MEDS: Lactated Ringers 1,000 ML 1000 ML IV ×2 (11:51→12:59)
[2023-02-26 12:04] LABS: ALT 28 U/L (16-63); AST 18 U/L (15-37); Albumin 4.2 g/dL (3.4-5.0); Alkaline Phosphatase 139 U/L (46-116); Anion Gap 5.1 mmol/L (3-11); BUN 12 mg/dL (7-18); Bilirubin, Total 0.3 mg/dL (0.2-1.0); CO2 28.9 mmol/L (21.0-32.0); CREATININE 1.1 mg/dL (0.70-1.30); Calcium 9.9 mg/dL (8.5-10.1); Chloride 102 mmol/L (98-107); Estimated GFR 77.81 (mL/min/1.73m2); Glucose 125 mg/dL (74-106); Magnesium 1.8 mg/dL (1.8-2.4); Potassium 4.3 mmol/L (3.5-5.1); Sodium 136 mmol/L (136-145); Total Protein 7.1 g/dL (6.4-8.2)
[2023-02-26 12:29] LABS: TSH (W/Ref FT4) 1.01 uIU/mL (0.36-3.74)
[2023-02-26 13:00] VITALS: RESP 18
--- NOTE | 2023-02-26 13:22 | W.NUTRFU ---
Date of service: 02/26/23 Time of Service: 13:22 Nutrition Note NOTE: Met with Krishan in ER today. Came in on my recommendation as was not speaking clearly when I spoke to him on phone. He is receiving IV hydration and feels much better. He said he noticed ostomy output continues to be excessive (empties bag > 15 times daily) and that he feels weak. He also reports food and liquids are going right through- no lag time and very little of it is digested and appears same as when ingested. [employer] is in process of getting home TPN set up with Home Health, procedure writer made TPN recommendation and [facility]. Provided on going diet support, avoid any foods with simple sugars and focus on high protein foods in puree texture. Provided enteral feeding samples to see if able to tolerate better than solid foods. Will follow up by phone. Time Spent in Nutritional Counseling and Treatment: 30
[2023-02-26 13:59] VITALS: BP 144/83; PULSE 72; RESP 18; O2SAT 98
== END 2023-02-26 14:00 | disposition home or self-care (01) ==
PROVIDERS: Emergency Provider Student in an Organized Health Care Education/Training Program; PCP Family Medicine
DX: E86.0 Dehydration (principal); R53.1 Weakness; R10.9 Unspecified abdominal pain; G89.29 Other chronic pain; R53.83 Other fatigue
CPT/HCPCS: 80053; 96360; 96361; 99284; 83735; 84443; 85025

== ENCOUNTER 2023-03-02 15:01 | Outpatient (REF) | payer MEDICARE, SELFPAY ==
--- NOTE | 2023-03-05 11:39 | W.NUTRFU ---
Date of service: 03/05/23 Time of Service: 11:39 Nutrition Note NOTE: Spoke to Krishan on phone, he is heading iny
== END 2023-03-02 15:02 | disposition home or self-care (01) ==
LOC: NCHCN 15:01
PROVIDERS: PCP Family Medicine; Visit Provider Family Medicine
DX: L72.3 Sebaceous cyst (principal); R63.4 Abnormal weight loss
CPT/HCPCS: 87070; 87205

== ENCOUNTER 2023-03-05 11:54 | Emergency (ER) | payer MEDICARE, SELFPAY ==
[2023-03-05 11:57] VITALS: BP 126/67; PULSE 67; RESP 16; TEMP 37.2; O2SAT 100
--- NOTE | 2023-03-05 13:09 | ED.GENADUL_ITS ---
Discharge Plan Discharge Details Chief Complaint: GenMedical Primary Care Provider: Natty Mckinney V ED Provider: Micky Recio Home Meds and New Rx's Prescriptions: No Action ondansetron HCl [Zofran] 4 mg Tablet 4 mg PO Q6H PRN hydrocodone-acetaminophen 10-325 mg Tablet 2 tab PO Q8H PRN aspirin 81 mg tablet,delayed release (DR/EC) 81 mg PO DAILY diphenoxylate-atropine [Lomotil] 2.5-0.025 mg tablet 4 tab PO TID butenafine [Lotrimin Ultra] 1 % cream 1 applic topical DAILY Centrum Men 8 mg iron- 200 mcg-600 mcg tablet 1 tab PO DAILY ferrous sulfate 325 mg (65 mg iron) tablet 325 mg PO DAILY cyanocobalamin (vitamin B-12) 1,000 mcg/mL kit 1,000 mcg subcut .G8effve methadone [Dolophine] 10 mg tablet 20 mg PO Q12H Patient Comments: Pt. states he takes this medication 0900pm 0200am 0400am albuterol sulfate [Ventolin HFA] 90 mcg/actuation HFA aerosol inhaler 1 inh inhalation ONCE PRN ondansetron HCl 4 mg tablet 4 mg PO Q8H nutritional supplements [Boost Max] PO celecoxib [Celebrex] 200 mg capsule 200 mg PO BID baclofen 10 mg tablet 10 mg PO BID nicotine [Nicoderm CQ] 14 mg/24 hr Patch 24 Hour 1 patch TRANSDERMAL DAILY diclofenac sodium [Voltaren] 1 % Gel 2 - 4 g TOPICAL QID naloxone [Narcan] 4 mg/actuation [place],Non-Aerosol 1 spray INTRANASAL Q3M Medical Decision Making 57-year-old male history of Crohn's disease status post bowel resection, ostomy, short gut syndrome, presents with fatigue and dehydration. Awaiting PICC line placement, cannot be scheduled until infected cyst clears up on neck. Patient is hemodynamically stable afebrile nontoxic. Appears chronically frail and mildly fatigued currently. Patient is at high risk for dehydration given short gut and high output into ostomy. Lower suspicion for active intra-abdominal infection. Will administer crystalloid fluid, will obtain basic labs. Likely discharge home with close follow-up HPI General Date/Time Provider Initiated Documentation: 03/05/23 12:05 . HPI Narrative: 57-year-old male history of Crohn's, status post bowel resection and ileostomy, short gut syndrome, presents with dehydration, chronic large output from ostomy, was scheduled for PICC line placement for TPN however patient has an infected cyst on his right neck that was recently excised, team is waiting for infection to clear before inserting PICC. Patient feels generalized fatigue and dehydration Related Data Home Medications Medication Instructions Recorded Confirmed diphenoxylate-atropine 2.5 4 tab PO TID 12/08/20 03/05/23 mg-0.025 mg tablet (Lomotil) diclofenac sodium 1 % topical gel 2 - 4 g topical QID 02/07/21 03/05/23 (Voltaren) naloxone 4 mg/actuation nasal 1 spray intranasal Q3M 02/07/21 03/05/23 spray (Narcan) nicotine 14 mg/24 hr daily 1 patch transdermal DAILY 02/07/21 03/05/23 transdermal patch (Nicoderm CQ) aspirin 81 mg tablet,delayed 81 mg PO DAILY 03/23/21 03/05/23 release hydrocodone 10 mg-acetaminophen 2 tab PO Q8H PRN 03/23/21 03/05/23 325 mg tablet ondansetron HCl 4 mg tablet 4 mg PO Q6H PRN 03/23/21 03/05/23 (Zofran) butenafine 1 % topical cream 1 applic topical DAILY 10/09/22 03/05/23 (Lotrimin Ultra) cyanocobalamin (vitamin B-12) 1,000 mcg subcut .[id number] 10/09/22 03/05/23 1,000 mcg/mL injection kit ferrous sulfate 325 mg (65 mg 325 mg PO DAILY 10/09/22 03/05/23 iron) tablet multivit,Ca,min-iron 8 mg-folic 1 tab PO DAILY 10/09/22 03/05/23 acid 200 mcg-lycopene 600 mcg tablet (Centrum Men) methadone 10 mg tablet (Dolophine) 20 mg PO Q12H 10/23/22 03/05/23 albuterol sulfate 90 mcg/actuation 1 inh inhalation ONCE PRN 12/26/22 03/05/23 aerosol inhaler (Ventolin HFA) baclofen 10 mg tablet 10 mg PO BID 12/26/22 03/05/23 celecoxib 200 mg capsule (Celebrex) 200 mg PO BID 12/26/22 03/05/23 nutritional supplements [Boost Max] PO 12/26/22 02/01/23 ondansetron HCl 4 mg tablet 4 mg PO Q8H 12/26/22 03/05/23 Allergies Allergy/AdvReac Type Severity Reaction Status Date / Time No Known Allergies Allergy Verified 03/05/23 12:00 General Stated Complaint: Recheck GENET: 3 Review of Systems Narrative: Review of Systems Constitutional: Fatigue Eyes: negative ENT: negative Cardiovascular: negative Respiratory: negative Gastrointestinal: negative : negative Musculoskeletal: negative Skin: negative Neurologic: negative Psych: negative PFSH All Active Problems Weakness (Acute) Dehydration (Acute) Liver mass (Acute) Unintended weight loss (Acute) Methadone use (Acute) Elevated liver function tests (Acute) Disease of gallbladder, unspecified (Acute) Degenerative arthritis of carpometacarpal joint of thumb (Acute) Ulnar abutment syndrome of both wrists (Acute) Pain in elbow joint (Acute) Arthrofibrosis of total knee arthroplasty (Acute) RIGHT S/P Manipulation: 04/20/2021 History of total right knee replacement (Acute 02/09/21) Internal derangement of right knee (Acute) Osteoarthritis of right knee (Acute) Vitamin B12 deficiency (Acute) Fatigue (Acute) Crohn's disease (Chronic) Ileostomy status (Acute) Syncope (Chronic) Joint pain (Acute) Sinus pain (Acute) Vision changes (Acute) Abdominal pain (Acute) Smoker (Acute) Postprandial vomiting (Acute) Raynaud's disease (Acute) Depression (Chronic) Dyspnea on exertion (Acute) Medical History Anemia Atrial enlargement, left Bilateral thumb pain Breast lump Chronic prescription opiate use Complaint of pain of toe Dyspnea Elevated PSA Encounter for therapeutic drug level monitoring Gallstones Hematuria Hip pain History of pneumonia Neck pain Other complications following infusion, transfusion and therapeutic injection, subsequent encounter Other postprocedural complications and disorders of genitourinary system post procedure testicular pain Pain of knee joint on movement Paresthesia Pelvic pain Preoperative examination Preventative health care Prostate cancer Pulmonary nodule Radiculopathy affecting upper extremity RBBB Right knee pain RUQ pain Situational depression Tongue lesion Surgical History Cataract extraction status Hx of total knee arthroplasty Social History Smoking/Tobacco Use Status: Current every day Tobacco Type: cigarettes Tobacco: How many years used: 44 Smoking risk assessment performed?: Yes Alcohol Intake: never Drug use: Socially Substance use type: former substance user and marijuana Details: 3-4 months used marijuana Household members: none Housing: apartment current occupation: Disabled Current gender identity: male Do you feel safe at home: Yes Do you feel safe in your relationship?: Yes Additional Social history: lives alone Exam Narrative Exam Narrative: Physical Examination General: alert, awake, cooperative, resting comfortably, no acute distress; frail HEENT: normocephalic, atraumatic; PERRL, EOM intact, conjunctiva normal; no n cristian discharge; moist mucous membranes, oral and pharyngeal mucosa normal, tolerating secretions Neck: supple, trachea midline; full ROM Chest: normal to inspection Respiratory: normal respiratory effort, speaking in full sentences, clear to auscultation, no wheezing, rales or rhonchi Cardiac: regular rate, regular rhythm, S1S2 intact, no murmurs rubs or gallops GI: abdomen soft, non-tender, non-distended; no palpable mass or hepatosplenomegaly; ostomy Skin: no lesions, rashes or trauma appreciated; slightly dry Neuro: AAOx3, normal speech, moving all extremities Psych: Appropriate mood and affect Course Vital Signs Vital signs: Vital Signs Temperature 37.2 C 03/05/23 11:57 Pulse 67 03/05/23 11:57 Respiratory Rate 16 03/05/23 11:57 Blood Pressure 126/67 03/05/23 11:57 Pulse Oximetry 100 03/05/23 11:57 Temperature 37.2 C 03/05/23 11:57 Temperature Source Oral 03/05/23 11:57 Pulse 67 03/05/23 11:57 Respiratory Rate 16 03/05/23 11:57 Respiratory Effort Normal 03/05/23 11:59 Blood Pressure 126/67 03/05/23 11:57 Blood Pressure Position Sitting 03/05/23 11:57 Pulse Oximetry 100 03/05/23 11:57 Oxygen Delivery Method Room Air 03/05/23 11:57 Oxygen Flow Rate 0 03/05/23 11:57 Pain Level 0 03/05/23 11:57
[2023-03-05 13:29] LABS: Abs Immature Grans 0.03 10^3/uL (0.0-0.06); Absolute Basophil Count 0.05 10^3/uL (0.0-0.2); Absolute Eosinophil Count 0.11 10^3/uL (0.0-0.7); Absolute Lymphocyte Count 2.19 10^3/uL (1.2-3.4); Absolute Monocyte Count 0.58 10^3/uL (0.1-0.8); Absolute Neutrophil Count 5.67 10^3/uL (1.2-6.7); Basophils % 0.6; Eosinophils % 1.3; HCT 38.5 % (40.0-50.0); HGB 12.8 g/dL (13.5-17.5); Immature Grans % 0.3; Lymphocytes % 25.4; MCH 31.4 pg (27.0-33.0); MCHC 33.2 % (32.0-36.0); MCV 94 fL (80-95); MPV 11.2 fL (8.0-11.0); Monocytes % 6.7; Neutrophils % 65.7; Platelet Count 233 10^3/uL (130-400); RBC 4.08 10^6/uL (4.36-5.78); RDW 12.6 % (11.8-14.1); RDW-SD 43.9 fL; WBC 8.63 10^3/uL (4.4-10.8)
--- NOTE | 2023-03-05 13:42 | NUR.NOTE ---
Addendum entered by Karla Mccord RN 03/05/23 13:58: Pt returned to ER to show that IV was out. this nurse visualized IV was removed from arm and was intact. Original Note: Nursing Note: Pt left without receiving treatment or letting anyone know he was leaving. pt still has IV in right upper arm as far as this nurse is aware. charge nurse, provider, and guidance secretary informed.
[2023-03-05 13:44] LABS: ALT 28 U/L (16-63); AST 20 U/L (15-37); Albumin 3.7 g/dL (3.4-5.0); Alkaline Phosphatase 128 U/L (46-116); Anion Gap 6.2 mmol/L (3-11); BUN 15 mg/dL (7-18); Bilirubin, Total 0.2 mg/dL (0.2-1.0); CO2 28.8 mmol/L (21.0-32.0); CREATININE 0.9 mg/dL (0.70-1.30); Chloride 104 mmol/L (98-107); Glucose 98 mg/dL (74-106); Potassium 3.9 mmol/L (3.5-5.1); Sodium 139 mmol/L (136-145); Total Protein 6.7 g/dL (6.4-8.2)
--- NOTE | 2023-03-05 13:44 | NUR.NOTE ---
Nursing Note: 1340 called patient and asked about the IV and why he left. He stated that the left because it was busy, he did not want to wait and that he did not want to come initially. He stated that he took the IV out. I told him that we needed to physically see that the IV was not in his arm. He stated he would return around 1400 and would call when he got here so that we can go out and visualize his arm.
[2023-03-06 09:09] LABS: Iron 56 ug/dL (65-175)
[2023-03-06 09:35] LABS: Vitamin B12 506 pg/mL (193-986)
== END 2023-03-05 13:47 | disposition left against medical advice (07) ==
PROVIDERS: Emergency Provider Emergency Medicine; PCP Family Medicine
DX: R53.83 Other fatigue (principal); K50.90 Crohn's disease, unspecified, without complications; Z98.890 Other specified postprocedural states
CPT/HCPCS: 36415; 80053; 99282; 82607; 83540; 85025; 99283

== ENCOUNTER 2023-03-15 01:38 | Outpatient (RCR) | payer MEDICARE, SELFPAY ==
[2023-03-09] MEDS: Normal Saline 1,000 ML 1000 ML IV (10:59)
[2023-03-09] MEDS: Lactated Ringers 1,000 ML 1000 ML IV (12:06)
[2023-03-12] MEDS: Normal Saline 1,000 ML 1000 ML IV (10:58)
[2023-03-12] MEDS: Normal Saline Flush 10 ML SYR IVP (11:02)
[2023-03-12] MEDS: Lactated Ringers 1,000 ML 1000 ML IV (12:05)
[2023-03-15] MEDS: Lactated Ringers 1,000 ML 999 ML IV (11:00)
[2023-03-15] MEDS: Normal Saline Flush 10 ML SYR IVP (11:04)
--- NOTE | 2023-03-15 11:40 | W.NUTRFU ---
Date of service: 03/15/23 Time of Service: 11:40 Nutrition Note NOTE: Met with Krishan in infusion room while hydrating. 6'2 130 lbs BMI 16.5. Usual Weight:? 150-160 lbs.? Has lost over 35 lbs in last year secondary to pain when eating, and excessive ostomy output.? Has had over 30 surgery for Crohn's dx since age 8.? Reports he has only a few feet of intestine and has had an ostomy since 1988. ? Empties ostomy bag > 20 times daily (12 oz at a time).? Had Prostate cancer a couple years back, radiation has added to abdominal pain.? Diet Recall:? taking 1-2 cartons of Nutren 2.0 daily, banana, rice and cream of rice. Transit less than 1 hour. Estimated Needs:? BEE: 1629. ? ? BEE x 1.3 = 2117 kcal, 1.2 g pro/kg= 90 g protein, 2000 ml flulid NUTRITIONAL DIAGNOSIS: severe malnutrition in view of low weight, lack of subsqutaneous fat with muscle wasting INTERVENTION: Krishan to continue with low fat, low sugar foods high in soluble fiber. ??Recommend home TPN either at night or every other day. Has appt to get port for home TPN next week with Dr. Castro. Spoke with CARLOS Hernandez at [facility]. They have sent referral to [facility] to coordinate home infusion. Krishan has appt at [facility] gastroenterology on 05/14/23. Time Spent in Nutritional Counseling and Treatment: 15
[2023-03-15] MEDS: Normal Saline 1,000 ML 999 ML IV (12:06)
== END 2023-03-18 23:59 | disposition home or self-care (01) ==
LOC: INF 01:38
PROVIDERS: PCP Family Medicine; Visit Provider Internal Medicine
DX: R63.4 Abnormal weight loss (principal)
CPT/HCPCS: 96360; 96361

== ENCOUNTER 2023-03-21 10:20 | Day surgery (SDC) | payer MEDICARE, SELFPAY ==
--- NOTE | 2023-03-21 06:56 | W.PM.HP.N ---
[facility] All Active Problems (Updated 03/20/23 @ 10:38 by Buzz Beltran) Internal derangement of right knee (Acute) Osteoarthritis of right knee (Acute) Vitamin B12 deficiency (Acute) Fatigue (Acute) Dyspnea on exertion (Acute) Depression (Chronic) Raynaud's disease (Acute) Postprandial vomiting (Acute) Smoker (Acute) Abdominal pain (Acute) Vision changes (Acute) Sinus pain (Acute) Joint pain (Acute) Syncope (Chronic) Ileostomy status (Acute) Crohn's disease (Chronic) History of total right knee replacement (Acute 02/09/21) Arthrofibrosis of total knee arthroplasty (Acute) RIGHT S/P Manipulation: 04/20/2021 Pain in elbow joint (Acute) Ulnar abutment syndrome of both wrists (Acute) Degenerative arthritis of carpometacarpal joint of thumb (Acute) Disease of gallbladder, unspecified (Acute) Elevated liver function tests (Acute) Methadone use (Acute) Unintended weight loss (Acute) Liver mass (Acute) Weakness (Acute) Dehydration (Acute) Medical History (Updated 03/20/23 @ 10:38 by Buzz Beltran) Anemia Atrial enlargement, left Bilateral thumb pain Breast lump Chronic prescription opiate use Complaint of pain of toe Dyspnea Elevated PSA Encounter for therapeutic drug level monitoring Gallstones Hematuria Hip pain History of pneumonia Infected cyst of skin tx with abx Neck pain Other complications following infusion, transfusion and therapeutic injection, subsequent encounter Other postprocedural complications and disorders of genitourinary system post procedure testicular pain Pain of knee joint on movement Paresthesia Pelvic pain Preoperative examination Preventative health care Prostate cancer Pulmonary nodule Radiculopathy affecting upper extremity RBBB Right knee pain RUQ pain Situational depression Tongue lesion Surgical History (Updated 03/20/23 @ 10:38 by Buzz Beltran) Cataract extraction status History of creation of ostomy had in situ since 1988 Hx of total knee arthroplasty Social History Smoking/Tobacco Use Status: Current every day Tobacco Type: cigarettes Tobacco: How many years used: 44 Smoking risk assessment performed?: Yes Alcohol Intake: never Drug use: Socially Substance use type: former substance user and marijuana Household members: none Housing: apartment current occupation: Disabled Current gender identity: male Do you feel safe at home: Yes Do you feel safe in your relationship?: Yes Additional Social history: lives alone Meds Allergies and Home Medications Allergies Allergy/AdvReac Type Severity Reaction Status Date / Time No Known Allergies Allergy Verified 03/20/23 10:39 Home Medications Medication Instructions Recorded Confirmed Type diphenoxylate-atropine 2.5 4 tab PO TID 12/08/20 03/20/23 History mg-0.025 mg tablet (Lomotil) diclofenac sodium 1 % topical gel 2 - 4 g topical QID 02/07/21 03/20/23 History (Voltaren) naloxone 4 mg/actuation nasal 1 spray intranasal Q3M 02/07/21 03/20/23 History spray (Narcan) nicotine 14 mg/24 hr daily 1 patch transdermal DAILY 02/07/21 03/20/23 History transdermal patch (Nicoderm CQ) aspirin 81 mg tablet,delayed 81 mg PO DAILY 03/23/21 03/20/23 History release hydrocodone 10 mg-acetaminophen 2 tab PO Q8H PRN 03/23/21 03/20/23 History 325 mg tablet ondansetron HCl 4 mg tablet 4 mg PO Q6H PRN 03/23/21 03/20/23 History (Zofran) butenafine 1 % topical cream 1 applic topical DAILY 10/09/22 03/20/23 History (Lotrimin Ultra) cyanocobalamin (vitamin B-12) 1,000 mcg subcut .[id number] 10/09/22 03/20/23 History 1,000 mcg/mL injection kit ferrous sulfate 325 mg (65 mg 325 mg PO DAILY 10/09/22 03/20/23 History iron) tablet multivit,Ca,min-iron 8 mg-folic 1 tab PO DAILY 10/09/22 03/20/23 History acid 200 mcg-lycopene 600 mcg tablet (Centrum Men) methadone 10 mg tablet (Dolophine) 20 mg PO Q12H 10/23/22 03/20/23 History albuterol sulfate 90 mcg/actuation 1 inh inhalation ONCE PRN 12/26/22 03/20/23 History aerosol inhaler (Ventolin HFA) baclofen 10 mg tablet 10 mg PO BID 12/26/22 03/20/23 History celecoxib 200 mg capsule (Celebrex) 200 mg PO BID 12/26/22 03/20/23 History nutritional supplements [Boost Max] PO 12/26/22 02/01/23 History ondansetron HCl 4 mg tablet 4 mg PO Q8H 12/26/22 03/20/23 History
[2023-03-21 10:20] VITALS: BP 137/74; PULSE 62; RESP 16; TEMP 36.3; O2SAT 100
[2023-03-21] MEDS: Lactated Ringers 1,000 ML 80 ML IV (10:49)
--- NOTE | 2023-03-21 11:39 | ANES.PREOP_ITS ---
General Info Date of Service Date Performed: 03/21/23 Height: 6 ft 2 in Weight: 61.6 kg Body Mass Index (BMI): 17.4 Surgical Procedure: Operation Date: 03/21/23 11:55 Proposed Procedure Side Surgeon p [facility] Cath Placement Michael Oliver MD Meds Allergies and Home Medications Allergies Allergy/AdvReac Type Severity Reaction Status Date / Time No Known Allergies Allergy Verified 03/21/23 10:28 Home Medication Medication Instructions Recorded diphenoxylate-atropine 2.5 4 tab PO TID 12/08/20 mg-0.025 mg tablet (Lomotil) diclofenac sodium 1 % topical gel 2 - 4 g topical QID 02/07/21 (Voltaren) naloxone 4 mg/actuation nasal 1 spray intranasal Q3M 02/07/21 spray (Narcan) nicotine 14 mg/24 hr daily 1 patch transdermal DAILY 02/07/21 transdermal patch (Nicoderm CQ) aspirin 81 mg tablet,delayed 81 mg PO DAILY 03/23/21 release hydrocodone 10 mg-acetaminophen 2 tab PO Q8H PRN 03/23/21 325 mg tablet ondansetron HCl 4 mg tablet 4 mg PO Q6H PRN 03/23/21 (Zofran) butenafine 1 % topical cream 1 applic topical DAILY 10/09/22 (Lotrimin Ultra) cyanocobalamin (vitamin B-12) 1,000 mcg subcut .[id number] 10/09/22 1,000 mcg/mL injection kit ferrous sulfate 325 mg (65 mg 325 mg PO DAILY 10/09/22 iron) tablet multivit,Ca,min-iron 8 mg-folic 1 tab PO DAILY 10/09/22 acid 200 mcg-lycopene 600 mcg tablet (Centrum Men) methadone 10 mg tablet (Dolophine) 20 mg PO Q12H 10/23/22 albuterol sulfate 90 mcg/actuation 1 inh inhalation ONCE PRN 12/26/22 aerosol inhaler (Ventolin HFA) baclofen 10 mg tablet 10 mg PO BID 12/26/22 celecoxib 200 mg capsule (Celebrex) 200 mg PO BID 12/26/22 nutritional supplements [Boost Max] PO 12/26/22 ondansetron HCl 4 mg tablet 4 mg PO Q8H 12/26/22 Current Visit Medications: Current Medications Generic Name Dose Route Start Last Admin Trade Name Freq PRN Reason Stop Dose Admin Ringer's Solution 1,000 mls @ 80 mls/hr 03/21/23 06:00 03/21/23 10:49 IV 03/21/23 23:59 80 mls/hr [facility] Administration Cefazolin Sodium/Dextrose 2 gm in 50 mls @ 100 mls/hr 03/21/23 06:00 Ancef Duplex IVPB 03/21/23 23:59 PREOP CLAUDIA IV Miscellaneous Supplies 1 each 03/21/23 06:00 Iv Access IV 03/21/23 23:59 DIRECTED CLAUDIA Sodium Chloride 0 ml 03/21/23 06:00 Normal Saline Flush 10 Ml Syr IV 03/21/23 23:59 PRN PRN Sodium Chloride 0 ml 03/21/23 06:00 Normal Saline 10 Ml Vial IJ 03/21/23 23:59 DIRECTED PRN Sterile Water 0 ml 03/21/23 06:00 Water,Injection,Sterile 10 Ml Vial IJ 03/21/23 23:59 DIRECTED PRN PFSH Active Problems Active Problems: Problem Status Onset Code Internal derangement of right knee M23.91 Osteoarthritis of right knee M17.11 Vitamin B12 deficiency E53.8 Fatigue R53.83 Dyspnea on exertion R06.00 Depression F32.9 Raynaud's disease I73.00 Postprandial vomiting R11.10 Smoker F17.200 Abdominal pain R10.9 Vision changes H53.9 Sinus pain J34.89 Joint pain M25.50 Syncope R55 Ileostomy status Z93.2 Crohn's disease K50.90 History of total right knee replacement 02/09/21 Z96.651 Arthrofibrosis of total knee arthroplasty T84.82XA Pain in elbow joint M25.529 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, M25.832 Degenerative arthritis of carpometacarpal joint of thumb M18.9 Disease of gallbladder, unspecified K82.9 Elevated liver function tests R79.89 Methadone use F11.90 Unintended weight loss R63.4 Liver mass R16.0 Weakness R53.1 Dehydration E86.0 Medical History Medical History Anemia Atrial enlargement, left Bilateral thumb pain Breast lump Chronic prescription opiate use Complaint of pain of toe Dyspnea Elevated PSA Encounter for therapeutic drug level monitoring Gallstones Hematuria Hip pain History of pneumonia Infected cyst of skin tx with abx Neck pain Other complications following infusion, transfusion and therapeutic injection, subsequent encounter Other postprocedural complications and disorders of genitourinary system post procedure testicular pain Pain of knee joint on movement Paresthesia Pelvic pain Preoperative examination Preventative health care Prostate cancer Pulmonary nodule Radiculopathy affecting upper extremity RBBB Right knee pain RUQ pain Situational depression Tongue lesion Surgical History Surgical History Cataract extraction status History of creation of ostomy had in situ since 1988 Hx of total knee arthroplasty Tobacco Smoking/Tobacco Use Status: Current every day Tobacco Type: cigarettes Alcohol Alcohol Intake: never Substance Use Substance use: Socially Substance use type: former substance user and marijuana Vital Signs and Lab Results Vital Signs Most Recent Vital Signs in EMR: Most Recent Vital Signs Temp Pulse Resp BP Pulse Ox 36.3 C L 62 16 137/74 100 03/21/23 10:20 03/21/23 10:20 03/21/23 10:20 03/21/23 10:20 03/21/23 10:20 Lab Results Blood Type / Crossmatch: No Data to Display Complete Blood Count: White Blood Count 8.63 10^3/uL (4.4-10.8) 03/05/23 12:23 Red Blood Count 4.08 10^6/uL (4.36-5.78) L 03/05/23 12:23 Hemoglobin 12.8 g/dL (13.5-17.5) L 03/05/23 12:23 Hematocrit 38.5 % (40.0-50.0) L 03/05/23 12:23 Platelet Count 233 10^3/uL (130-400) 03/05/23 12:23 Complete Metabolic Panel: Sodium 139 mmol/L (136-145) 03/05/23 12:23 Potassium 3.9 mmol/L (3.5-5.1) 03/05/23 12:23 Chloride 104 mmol/L (98-107) 03/05/23 12:23 Carbon Dioxide 28.8 mmol/L (21.0-32.0) 03/05/23 12:23 BUN 15 mg/dL (7-18) 03/05/23 12:23 Creatinine 0.9 mg/dL (0.70-1.30) 03/05/23 12:23 Est GFR (CKD-EPI 2020) 99.00 (mL/min/1.73m2) 03/05/23 12:23 Magnesium 1.8 mg/dL (1.8-2.4) 02/26/23 11:44 Calcium 9.0 mg/dL (8.5-10.1) 03/05/23 12:23 Albumin 3.7 g/dL (3.4-5.0) 03/05/23 12:23 Glucose 98 mg/dL (74-106) 03/05/23 12:23 Liver Function Panel: Alanine Aminotransferase (ALT/SGPT) 28 U/L (16-63) 03/05/23 12: 23 Aspartate Amino Transf (AST/SGOT) 20 U/L (15-37) 03/05/23 12:23 Coagulation Panel: No Data to Display Cardiac Panel: No Data to Display Arterial Blood Gas: No Data to Display Venous Blood Gas: No Data to Display Pancreas Panel: No Data to Display Thyroid Panel: Thyroid Stimulating Hormone (TSH) 1.01 uIU/mL (0.36-3.74) 02/26 11:44 Infectious Disease: No Data to Display Blood Cultures: No Data to Display Toxicology Panel: No Data to Display Imaging and Studies Imaging and Studies Study information below may be from another EMR and interpreted by another provider. Please see original notes in EMR for more complete details. Stress Test Summary: Patient's ejection fraction was 45% with exercise. There were no wall motion abnormalities. No evidence of ischemia on the imaging portion of this exam This represents a normal SPECT stress test. Anesthesia Assessment and Plan Anesthesia History Personal History: No History of Anesthesia Complications Family History: No Family History of Anesthesia Complications Exercise Tolerance Exercise Tolerance: Metabolic Equivalents>4 Pertinent Negatives Pertinent Negatives: No Symptoms of GERD Cardiac & Pulmonary Exam Cardiac Exam: Normal S1/S2 Heart Sounds, Heart Murmur Present, Known Innocent Murmur and Unable to Assess Pulmonary Exam: Clear Bilateral Breath Sounds Implantable Cardiac Device Does patient have a Pacemaker or an ICD?: No Airway Exam Known Difficult Airway: No Mallampati Class: 2 Mouth Opening: Normal (> 3cm) Thyromental Distance: Less than 3 cm Neck Range of Motion: Full ROM Neck Circumference: Normal Teeth Condition: Normal Dentition ASA Classification ASA Score: ASA 2 Emergency Case?: No NPO Status NPO Status: NPO Clears >2 hours, Solids >8 hours Anesthesia Plan Resuscitation Status: Full Code Anesthesia Technique: General Anesthesia Airway Planned: Natural Airway Monitors Used: Standard Monitors
--- NOTE | 2023-03-21 12:05 | W.PREOPHP ---
Assessment and Plan Assessment and plan (1) Malnutrition: Status: Acute Assessment and plan: We talked about the risks and benefits of central venous catheterization, and the prognosis for management of a tunneled catheter. I think he has a good understanding of the nature of the procedure, and the long-term risks and benefits. He provided informed consent today, and we are making arrangements to proceed. History of Present Illness History of Present Illness Chief Complaint: Malnutrition Narrative: Micky is a 57-year-old male with a past medical history that is fairly complicated, but most relevant today includes Crohn's disease which required multiple abdominal operations, and extensive resection of his bowel. Over the past year or so has had a significant amount of weight loss, and has clinical features consistent with malnutrition. He was referred for urgent consideration of a tunneled central catheter for home based total parenteral nutrition therapy [facility] All Active Problems (Updated 03/21/23 @ 12:07 by Michael Oliver MD) Malnutrition (Acute) Internal derangement of right knee (Acute) Osteoarthritis of right knee (Acute) Vitamin B12 deficiency (Acute) Fatigue (Acute) Dyspnea on exertion (Acute) Depression (Chronic) Raynaud's disease (Acute) Postprandial vomiting (Acute) Smoker (Acute) Abdominal pain (Acute) Vision changes (Acute) Sinus pain (Acute) Joint pain (Acute) Syncope (Chronic) Ileostomy status (Acute) Crohn's disease (Chronic) History of total right knee replacement (Acute 02/09/21) Arthrofibrosis of total knee arthroplasty (Acute) RIGHT S/P Manipulation: 04/20/2021 Pain in elbow joint (Acute) Ulnar abutment syndrome of both wrists (Acute) Degenerative arthritis of carpometacarpal joint of thumb (Acute) Disease of gallbladder, unspecified (Acute) Elevated liver function tests (Acute) Methadone use (Acute) Unintended weight loss (Acute) Liver mass (Acute) Weakness (Acute) Dehydration (Acute) Medical History (Updated 03/21/23 @ 12:07 by Michael Oliver MD) Anemia Atrial enlargement, left Bilateral thumb pain Breast lump Chronic prescription opiate use Complaint of pain of toe Dyspnea Elevated PSA Encounter for therapeutic drug level monitoring Gallstones Hematuria Hip pain History of pneumonia Infected cyst of skin tx with abx Neck pain Other complications following infusion, transfusion and therapeutic injection, subsequent encounter Other postprocedural complications and disorders of genitourinary system post procedure testicular pain Pain of knee joint on movement Paresthesia Pelvic pain Preoperative examination Preventative health care Prostate cancer Pulmonary nodule Radiculopathy affecting upper extremity RBBB Right knee pain RUQ pain Situational depression Tongue lesion Surgical History Cataract extraction status History of creation of ostomy had in situ since 1988 Hx of total knee arthroplasty Social History Smoking/Tobacco Use Status: Current every day Tobacco Type: cigarettes Tobacco: How many years used: 44 Smoking risk assessment performed?: Yes Alcohol Intake: never Drug use: Socially Substance use type: former substance user and marijuana Household members: none Housing: apartment current occupation: Disabled Current gender identity: male Do you feel safe at home: Yes Do you feel safe in your relationship?: Yes Additional Social history: lives alone Meds Allergies and Home Medications Allergies Allergy/AdvReac Type Severity Reaction Status Date / Time No Known Allergies Allergy Verified 03/21/23 10:28 Home Medications Medication Instructions Recorded Confirmed Type diphenoxylate-atropine 2.5 4 tab PO TID 12/08/20 03/21/23 History mg-0.025 mg tablet (Lomotil) diclofenac sodium 1 % topical gel 2 - 4 g topical QID 02/07/21 03/20/23 History (Voltaren) naloxone 4 mg/actuation nasal 1 spray intranasal Q3M 02/07/21 03/20/23 History spray (Narcan) nicotine 14 mg/24 hr daily 1 patch transdermal DAILY 02/07/21 03/20/23 History transdermal patch (Nicoderm CQ) aspirin 81 mg tablet,delayed 81 mg PO DAILY 03/23/21 03/20/23 History release hydrocodone 10 mg-acetaminophen 2 tab PO Q8H PRN 03/23/21 03/21/23 History 325 mg tablet ondansetron HCl 4 mg tablet 4 mg PO Q6H PRN 03/23/21 03/21/23 History (Zofran) butenafine 1 % topical cream 1 applic topical DAILY 10/09/22 03/05/23 History (Lotrimin Ultra) cyanocobalamin (vitamin B-12) 1,000 mcg subcut .[id number] 10/09/22 03/20/23 History 1,000 mcg/mL injection kit ferrous sulfate 325 mg (65 mg 325 mg PO DAILY 10/09/22 03/20/23 History iron) tablet multivit,Ca,min-iron 8 mg-folic 1 tab PO DAILY 10/09/22 03/20/23 History acid 200 mcg-lycopene 600 mcg tablet (Centrum Men) methadone 10 mg tablet (Dolophine) 20 mg PO Q12H 10/23/22 03/21/23 History albuterol sulfate 90 mcg/actuation 1 inh inhalation ONCE PRN 12/26/22 03/20/23 History aerosol inhaler (Ventolin HFA) baclofen 10 mg tablet 10 mg PO BID 12/26/22 03/05/23 History celecoxib 200 mg capsule (Celebrex) 200 mg PO BID 12/26/22 03/05/23 History nutritional supplements [Boost Max] PO 12/26/22 02/01/23 History ondansetron HCl 4 mg tablet 4 mg PO Q8H 12/26/22 03/20/23 History Exam Const General: cooperative and comfortable Nutritional Appearance: underweight Orientation: awake and oriented x3 Eyes General: appearance normal, both eyes and all related structures Conjunctivae: conjunctivae normal Sclera: sclerae normal Other: Mild temporal wasting Resp Effort & Inspection: normal respiratory effort and able to speak in complete sentences Cardio Jugular venous pressure: no JVD Rate: regular rate GI Inspection: non-distended Palpation: soft, no guarding, no hernias and nontender Auscultation: normal bowel sounds Skin General skin exam: normal turgor Neuro General: patient alert, patient awake and patient oriented x3 Cognition: normal cognition Extrem Right lower extremity: no edema Left lower extremity: no edema Results Last Vital Signs Temp 97.3 F L 03/21/23 10:20 Pulse 62 03/21/23 10:20 Resp 16 03/21/23 10:20 BP 137/74 03/21/23 10:20 Pulse Ox 100 03/21/23 10:20
[2023-03-21 12:06] VITALS: BMI 17.4
--- NOTE | 2023-03-21 12:10 | W.PM.DSUDISC ---
Date of service: 03/21/23 Time of Service: 12:10 Discharge Plan Disposition Patient Disposition: Home Condition: Good Discharge Details Reason For Visit: Central venous catheterization Attending Provider: Michael Oliver Primary Care Provider: Natty Mckinney V Home Meds and New Rx's Prescriptions: Continued ondansetron HCl [Zofran] 4 mg Tablet 4 mg PO Q6H PRN hydrocodone-acetaminophen 10-325 mg Tablet 2 tab PO Q8H PRN aspirin 81 mg tablet,delayed release (DR/EC) 81 mg PO DAILY diphenoxylate-atropine [Lomotil] 2.5-0.025 mg tablet 4 tab PO TID butenafine [Lotrimin Ultra] 1 % cream 1 applic topical DAILY Centrum Men 8 mg iron- 200 mcg-600 mcg tablet 1 tab PO DAILY ferrous sulfate 325 mg (65 mg iron) tablet 325 mg PO DAILY cyanocobalamin (vitamin B-12) 1,000 mcg/mL kit 1,000 mcg subcut .[id number] methadone [Dolophine] 10 mg tablet 20 mg PO Q12H Patient Comments: Pt. states he takes this medication 0900pm 0200am 0400am albuterol sulfate [Ventolin HFA] 90 mcg/actuation HFA aerosol inhaler 1 inh inhalation ONCE PRN ondansetron HCl 4 mg tablet 4 mg PO Q8H nutritional supplements [Boost Max] PO celecoxib [Celebrex] 200 mg capsule 200 mg PO BID baclofen 10 mg tablet 10 mg PO BID nicotine [Nicoderm CQ] 14 mg/24 hr Patch 24 Hour 1 patch TRANSDERMAL DAILY diclofenac sodium [Voltaren] 1 % Gel 2 - 4 g TOPICAL QID naloxone [Narcan] 4 mg/actuation [place],Non-Aerosol 1 spray INTRANASAL Q3M Discharge Instructions Instructions: Implanted Venous Access Port (GEN) Additional Instructions: Micky, we were able to insert your central venous catheter today without any issues. As we talked about beforehand, maintenance of the catheter will be the most important part moving forward. I do not need you to schedule follow-up visit with us, but I am more than happy to see you at any time if you have any questions. Leave the port dressed, and follow the instructions for basic catheter care with your home TPN nurse. Activity:: Activity as Tolerated Remove Dressings/Wound Care:: Do Not Remove Shower/Bathe:: Cover Diet:: As Tolerated DS: Diagnosis Discharge Diagnosis (1) Malnutrition: Status: Acute Asessment and Plan: Uncomplicated insertion of [place] cuffed central venous catheter
[2023-03-21] MEDS: ceFAZolin 2 GM/50 ML BAG IVPB (12:20)
[2023-03-21] MEDS: Bupivacaine 0.25% Pres-Free 30 ML VIAL (12:54)
[2023-03-21 13:05] VITALS: BP 114/77; PULSE 70; RESP 16; TEMP 36.5; O2SAT 97
--- NOTE | 2023-03-21 13:08 | DI.RAD_ITS ---
Exam(s) XR LINE PLACEMENT PICC/CVA EXAM: XR LINE PLACEMENT PICC/CVA CLINICAL HISTORY: PORT PLACEMENT TECHNIQUE: 2D and realtime digital imaging was performed. CONTRAST MATERIAL: Refer to procedure report. COMPARISON: No exams were available for comparison FINDINGS: Fluoroscopy was provided for Dr. Michael Oliver during the performance of a port placement. Please ref er to the procedure report for complete details. Ka,r=0.22 mGy IMPRESSION: RADIATION DOSE DELIVERED:
--- NOTE | 2023-03-21 13:30 | W.ANESPOSTOP ---
Postoperative Evaluation Date, Time and Location Date Performed: 03/21/23 Time Performed: 13:05 Patient Location: Day Surgery Unit Vital Signs Most Recent Imported Vital Signs: Most Recent Vital Signs Temp Pulse Resp BP Pulse Ox 36.5 C 70 16 114/77 97 03/21/23 13:05 03/21/23 13:05 03/21/23 13:05 03/21/23 13:03/21/23 13:05 Assessment Mental Status: Awake (Alert & Oriented to Patient Baseline) Airway and Respiratory Function: Patent airway with normal (patient baseline) respiratory exam Cardiovascular Function: Hemodynamically Stable Hydration Status: Adequately Hydrated Nausea & Vomiting: No Nausea or Vomiting Pain: Pt. Denies Any Pain Peripheral Nerve Block: Patient did not receive a nerve block
[2023-03-21 13:35] VITALS: BP 129/80; PULSE 51; RESP 16; TEMP 36.6; O2SAT 99
[2023-03-21] MEDS: Normal Saline Flush 10 ML SYR IV (13:39)
[2023-03-21 14:02] VITALS: BP 122/54; PULSE 52; RESP 17; TEMP 36.6; O2SAT 99
--- NOTE | 2023-03-21 17:00 | ANES.NEUR_ITS ---
Epidural/Spinal Daily Note Date Performed: 03/21/23 Assessment Time: 14:55 Patient Location: Obstetrics Catheter Type in Place: Epidural Catheter Dressing Assessment: Dressing intact with good adherence Catheter Assessment: Catheter Labeled and Intact and Functioning Previous Catheter Depth Noted (cm): 10 Current Catheter Depth (cm): 10 Current Medication Infusion: Ropivacaine 0.1% with Fentanyl 2mcg/ml Current Maintenance Infusion Rate (ml/hour): 10 Current PCEA Bolus Dose (ml): 5 Current Pain Score (0-10): 8 Medication Infusion Stopped, Catheter Removal Planned: No New Bolus Given or Change in Infusion Made: Yes Standard Monitors Applied: Blood Pressure, SpO2 and See EMR for corresponding vital signs Epidural Provider Bolus (Indicate Dose Given): Total bolus dose given in 3-5 ml divided doses and Total Ropivacaine 0.1% with Fentanyl 2mcg/ml Given from pump. (ml) Dose:: 10 ml Additives (Indicate Dose Given ): None Infusion Medication: New Infusion Medication Medication Infusion: Ropivacaine 0.1% with Fentanyl 2mcg/ml New M aintenance Infusion Rate (ml/hour): 12 New PCEA Bolus Dose (ml): 5 Pain Score after Medication Change (0-10): 2 Daily Management Comments: Patient's pain level had increased significantly, improved relief with bolus and basal infusion increase. Completed By: [place]
--- NOTE | 2023-03-21 20:58 | W.PM.OP ---
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 Procedure Description: After the initiation of monitored anesthetic care, I prepped and draped the right neck and periclavicular area in the usual fashion. Next, using real-time ultrasound guidance, I identified the right internal jugular vein. I anesthetized the access site with local anesthetic. With the assistance of the ultrasound, I then advanced the needle into the right internal jugular vein. I established a wire control. Fluoroscopy was used to confirm appropriate positioning of the guidewire. I then advanced a dilator and peel-away introducer over the guidewire into the internal jugular vein. I withdrew the guidewire and dilator.again, using fluoroscopy, I estimated the appropriate position of the Groshong catheter by overlying it on the chest wall, and comparing it to the inserted guidewire. I used this to estimate the appropriate exit of the tunneling site. I then advanced a flushed 8 Icelandic single-lumen Groshong catheter through the peel-away introducer. I anesthetized the track of the subcutaneous port, made a small skin incision on the right chest wall at the exit site, then past the subcutaneous tunneling device up to the access site. The Groshong catheter was attached to the end of the tunneling device, and this was withdrawn through the subcutaneous tunnel. This delivered the catheter cuff into the appropriate subcutaneous position. Great care was taken to avoid kinking of the catheter at the access site under the skin. Once this was completed, the catheter was trimmed to length. The external portions were attached according to the finisher cold rolling's instructions. Blood withdraw through the catheter was suboptimal, catheter was well-positioned, confirmed once again with fluoroscopy, and flushed quite easily without any concerns. The catheter was affixed to the skin with interrupted nylon sutures, and external dressings were applied. The access site was closed with a simple Band-Aid.
== END 2023-03-21 14:15 | disposition home or self-care (01) ==
PROVIDERS: PCP Family Medicine; Visit Provider Surgery
PROC: (CPT 36561; principal; 2023-03-21 11:45)
DX: E46 Unspecified protein-calorie malnutrition (principal); K91.2 Postsurgical malabsorption, not elsewhere classified; K50.90 Crohn's disease, unspecified, without complications
CPT/HCPCS: 36561; 77001; J0690; J2250; J2704

== ENCOUNTER 2023-03-24 08:53 | Outpatient (REF) | payer MEDICARE, SELFPAY ==
[2023-03-24 09:37] LABS: HCT 42.5 % (40.0-50.0); HGB 14.2 g/dL (13.5-17.5); MCH 32.1 pg (27.0-33.0); MCHC 33.4 % (32.0-36.0); MCV 96 fL (80-95); MPV 10.9 fL (8.0-11.0); Platelet Count 222 10^3/uL (130-400); RBC 4.43 10^6/uL (4.36-5.78); RDW 12.6 % (11.8-14.1); RDW-SD 44.9 fL; WBC 11.35 10^3/uL (4.4-10.8)
[2023-03-24 09:50] LABS: ALT 26 U/L (16-63); AST 21 U/L (15-37); Alkaline Phosphatase 126 U/L (46-116); Anion Gap 6.6 mmol/L (3-11); BUN 10 mg/dL (7-18); Bilirubin, Total 0.4 mg/dL (0.2-1.0); CO2 28.4 mmol/L (21.0-32.0); CREATININE 1.2 mg/dL (0.70-1.30); Calcium 9.7 mg/dL (8.5-10.1); Chloride 103 mmol/L (98-107); Glucose 128 mg/dL (74-106); Magnesium 1.9 mg/dL (1.8-2.4); PHOSPHORUS 2.9 mg/dL (2.6-4.7); Potassium 4.4 mmol/L (3.5-5.1); Sodium 138 mmol/L (136-145); Total Protein 7.2 g/dL (6.4-8.2)
[2023-03-24 10:01] LABS: Triglyceride 83 mg/dL (<150)
== END 2023-03-24 08:54 | disposition home or self-care (01) ==
LOC: LBO 08:53
PROVIDERS: PCP Family Medicine; Visit Provider Family Medicine
DX: Z76.0 Encounter for issue of repeat prescription (principal)
CPT/HCPCS: 36415; 80053; 85027; 83735; 84100; 84478

== ENCOUNTER 2023-03-26 02:44 | Outpatient (RCR) | payer MEDICARE, SELFPAY ==
[2023-03-19] MEDS: Normal Saline 1,000 ML 999 ML IV (10:57)
[2023-03-19] MEDS: Normal Saline Flush 10 ML SYR IVP (10:57)
[2023-03-19] MEDS: Lactated Ringers 1,000 ML 999 ML IV (12:04)
[2023-03-22] MEDS: Normal Saline 1,000 ML 999 ML IV (10:57)
[2023-03-22] MEDS: Normal Saline Flush 10 ML SYR IVP (11:01)
[2023-03-22] MEDS: Lactated Ringers 1,000 ML 999 ML IV (12:06)
== END 2023-04-18 23:59 | disposition home or self-care (01) ==
LOC: INF 02:44
PROVIDERS: PCP Family Medicine; Visit Provider Internal Medicine
DX: R63.4 Abnormal weight loss (principal)
CPT/HCPCS: 96360; 96361

== ENCOUNTER 2023-03-26 11:07 | Inpatient (IN) | payer MEDICARE, SELFPAY ==
[2023-03-26 11:15] VITALS: BP 139/79; PULSE 77; RESP 18; TEMP 35.7; O2SAT 92
--- NOTE | 2023-03-26 11:33 | W.NUTCONSULT ---
Date of service: 03/26/23 Time of Service: 11:34 Nutritional Consult ASSESSMENT: Krishan admitted today for TPN initiation s/p PICC line placement last week. ? 6'2 129lbs BMI 16.5. At very high risk for Refeeding Syndrome in view of low BMI, 23% weight loss in last 6 months, inability to absorb nutrients secondary to excessive nutrient losses Dx: Short gut syndrome, Malnutrition, excessive ostomy output Usual Weight:? 150-160 lbs.? Has lost over 35 lbs in last year secondary to pain when eating, and excessive ostomy output.? ? Empties ostomy bag > 20 times daily (12 oz at a time).? Diet Recall:? taking 1-2 cartons of Nutren 2.0 daily, banana, rice and cream of rice.? Transit less than 1 hour.? Estimated Needs:? BEE: 1629. ? ? BEE x 1.3 = 2117 kcal, 1.2 g pro/kg= 90 g protein, 2000 ml flulid NUTRITIONAL DIAGNOSIS: severe malnutrition in view of low weight, muscle wasting INTERVENTION: Diet: Krishan to continue with low fat, low sugar foods high in soluble fiber.? ?? TPN: 4.25/D10 2000 ml run at 40ccc/hour x 24 hours increase to Goal of 83 cc/hour if electrolytes wnl 20% lipids 250 ml run at 20cc/hour x 24 hours increase to Goal of 31.25 cc/hour if electrolytes wnl Monitor daily: calcium, Phos, Mg, glucose ? cardiac monitoring to monitor arrhythmia Time Spent in Nutritional Counseling and Treatment: 30
[2023-03-26 12:12] LABS: Abs Immature Grans 0.07 10^3/uL (0.0-0.06); Absolute Basophil Count 0.06 10^3/uL (0.0-0.2); Absolute Eosinophil Count 0.09 10^3/uL (0.0-0.7); Absolute Lymphocyte Count 2.08 10^3/uL (1.2-3.4); Absolute Monocyte Count 0.75 10^3/uL (0.1-0.8); Absolute Neutrophil Count 8.51 10^3/uL (1.2-6.7); Basophils % 0.5; Eosinophils % 0.8; HCT 39.7 % (40.0-50.0); HGB 13.4 g/dL (13.5-17.5); Immature Grans % 0.6; MCH 31.5 pg (27.0-33.0); MCHC 33.8 % (32.0-36.0); MCV 93 fL (80-95); MPV 10.4 fL (8.0-11.0); Monocytes % 6.5; Neutrophils % 73.6; Platelet Count 209 10^3/uL (130-400); RBC 4.25 10^6/uL (4.36-5.78); RDW 12.5 % (11.8-14.1); RDW-SD 43.2 fL; WBC 11.56 10^3/uL (4.4-10.8)
[2023-03-26 12:28] LABS: ALT 26 U/L (16-63); AST 23 U/L (15-37); Albumin 4.1 g/dL (3.4-5.0); Alkaline Phosphatase 123 U/L (46-116); Anion Gap 7.1 mmol/L (3-11); BUN 12 mg/dL (7-18); Bilirubin, Direct 0.1 mg/dL (0.0-0.2); Bilirubin, Total 0.3 mg/dL (0.2-1.0); CO2 27.9 mmol/L (21.0-32.0); CREATININE 1.1 mg/dL (0.70-1.30); Calcium 9.7 mg/dL (8.5-10.1); Chloride 101 mmol/L (98-107); Estimated GFR 77.81 (mL/min/1.73m2); Glucose 87 mg/dL (74-106); PHOSPHORUS 3.3 mg/dL (2.6-4.7); Potassium 4.3 mmol/L (3.5-5.1); Sodium 136 mmol/L (136-145); Total Protein 7.5 g/dL (6.4-8.2)
--- NOTE | 2023-03-26 13:41 | HPE_ITS ---
Date of service: 03/26/23 Time of Service: 13:41 Assessment and Plan Assessment and plan (1) Malnutrition: Status: Acute Assessment and plan: 2.5 years of > 30 pound weigh loss; Crohn's Disease and short gut syndrome after may abdominal surgeries. Groshong, right chest, placed uneventally on 03/21/2023 by surgery. Sent to hospital by PCP for TPN initiation Nutrition and pharmacy managing formula recipe (2) Unintended weight loss: Status: Chronic Assessment and plan: See above (3) Crohn's disease: Status: Chronic Assessment and plan: See above (4) Short gut syndrome: Status: Chronic Assessment and plan: See above (5) Ileostomy status: Status: Chronic Assessment and plan: Looks good, no redness, patient states it is in it's usual state (6) Chronic prescription opiate use: Status: Chronic Assessment and plan: Continue Methadone (7) DVT prophylaxis: Status: Acute Assessment and plan: Enoxaparin (8) Discharge planning issues: Status: Acute Assessment and plan: Home with HH when stable for continued TPN Discussed with Dr Sainz History of Present Illness History of Present Illness Chief Complaint: TPN initiation; sent by PCP Narrative: This is a 57 year old male patient with unintentional, progressive weight loss in setting of short gut syndrome and Crohn's Disease requiring multipe abdominal surgeries, with plan for in-patient initiation of TPN, sent to the hospital by PCP. He will be started on home infusions of TPN when we have found the correct formula/recipe for him at this time. Of note he has had a recent abscess of a sebaceous cyst at the right lower neck which was treated with antibiotics. Review of Systems Narrative: Krishan has had progressive weight loss of 30 pounds over the past 2.5 years due to malabsorption in setting of short gut syndrome. TPN is now indicated to provide him with adequate nutrition/hydration; food and fluids are going straight through to his ostomy bag. PFSH All Active Problems (Updated 03/26/23 @ 18:12 by Shantell Mccoy NP) Chronic prescription opiate use (Chronic) Short gut syndrome (Chronic) Discharge planning issues (Acute) DVT prophylaxis (Acute) Malnutrition (Acute) Internal derangement of right knee (Acute) Osteoarthritis of right knee (Acute) Vitamin B12 deficiency (Acute) Fatigue (Acute) Dyspnea on exertion (Acute) Depression (Chronic) Raynaud's disease (Acute) Postprandial vomiting (Acute) Smoker (Acute) Abdominal pain (Acute) Vision changes (Acute) Sinus pain (Acute) Joint pain (Acute) Syncope (Chronic) Ileostomy status (Chronic) Crohn's disease (Chronic) History of total right knee replacement (Acute 02/09/21) Arthrofibrosis of total knee arthroplasty (Acute) RIGHT S/P Manipulation: 04/20/2021 Pain in elbow joint (Acute) Ulnar abutment syndrome of both wrists (Acute) Degenerative arthritis of carpometacarpal joint of thumb (Acute) Disease of gallbladder, unspecified (Acute) Elevated liver function tests (Acute) Methadone use (Acute) Unintended weight loss (Chronic) Liver mass (Acute) Weakness (Acute) Dehydration (Acute) Medical History (Updated 03/26/23 @ 18:12 by Shantell Mccoy NP) Anemia Atrial enlargement, left Bilateral thumb pain Breast lump Complaint of pain of toe Dyspnea Elevated PSA Encounter for therapeutic drug level monitoring Gallstones Hematuria Hip pain History of pneumonia Infected cyst of skin tx with abx Neck pain Other complications following infusion, transfusion and therapeutic injection, subsequent encounter Other postprocedural complications and disorders of genitourinary system post procedure testicular pain Pain of knee joint on movement Paresthesia Pelvic pain Preoperative examination Preventative health care Prostate cancer Pulmonary nodule Radiculopathy affecting upper extremity RBBB Right knee pain RUQ pain Situational depression Tongue lesion Surgical History (Updated 03/26/23 @ 18:12 by Shantell Mccoy NP) Cataract extraction status History of creation of ostomy had in situ since 1988 Hx of total knee arthroplasty Social History Smoking/Tobacco Use Status: Current every day Tobacco Type: cigarettes Tobacco: How many years used: 44 Smoking risk assessment performed?: Yes Alcohol Intake: never Drug use: Socially Substance use type: former substance user and marijuana Household members: none Housing: apartment current occupation: Disabled Current gender identity: male Do you feel safe at home: Yes Do you feel safe in your relationship?: Yes Additional Social history: lives alone Meds Allergies and Home Medications Allergies Allergy/AdvReac Type Severity Reaction Status Date / Time No Known Allergies Allergy Verified 03/21/23 10:28 Home Medications Medication Instructions Recorded Confirmed Type diphenoxylate-atropine 2.5 4 tab PO TID 12/08/20 03/26/23 History mg-0.025 mg tablet (Lomotil) diclofenac sodium 1 % topical gel 2 - 4 g topical QID PRN Hand pain 02/07/21 03/26/23 History (Voltaren) naloxone 4 mg/actuation nasal 1 spray intranasal Q3M 02/07/21 03/26/23 History spray (Narcan) nicotine 14 mg/24 hr daily 1 patch transdermal DAILY 02/07/21 03/26/23 History transdermal patch (Nicoderm CQ) hydrocodone 10 mg-acetaminophen 2 tab PO Q8H PRN 03/23/21 03/26/23 History 325 mg tablet ondansetron HCl 4 mg tablet 4 mg PO Q6H PRN 03/23/21 03/26/23 History (Zofran) cyanocobalamin (vitamin B-12) 1,000 mcg subcut .[id number] 10/09/22 03/26/23 History 1,000 mcg/mL injection kit ferrous sulfate 325 mg (65 mg 325 mg PO DAILY 10/09/22 03/26/23 History iron) tablet multivit,Ca,min-iron 8 mg-folic 1 tab PO DAILY 10/09/22 03/26/23 History acid 200 mcg-lycopene 600 mcg tablet (Centrum Men) methadone 10 mg tablet (Dolophine) 20 mg PO HS 10/23/22 03/26/23 History Exam Narrative Exam Narrative: Physical Examination General: alert, awake, cooperative, resting comfortably, no acute distress; frail; looks tired, very thin HEENT: normocephalic, atraumatic; PERRL, EOM intact, conjunctiva normal; no nasal discharge; moist mucous membranes, oral and pharyngeal mucosa normal, tolerating secretions Neck: supple, trachea midline; full ROM Chest: normal to inspection, right side Groshong catheter Respiratory: normal respiratory effort, speaking in full sentences, clear to auscultation, no wheezing, rales or rhonchi Cardiac: regular rate, regular rhythm, S1S2 intact, no murmurs rubs or gallops GI: abdomen soft, very tender all over with palpation (usual state), non- distended; no palpable mass or hepatosplenomegaly; ostomy, bowel sounds active Skin: no lesions, rashes or trauma appreciated; slightly dry Neuro: AAOx3, normal speech, moving all extremities Psych: Appropriate mood and affect Results Labs 03/26/23 12:00 03/26/23 12:00 Labs: Laboratory Results - last 24 hr 03/26/23 03/26/23 03/26/23 12:00 12:00 12:00 WBC 11.56 H RBC 4.25 L Hgb 13.4 L Hct 39.7 L MCV 93 MCH 31.5 MCHC 33.8 RDW 12.5 Plt Count 209 MPV 10.4 Immature Gran % 0.6 Neutrophils % 73.6 Lymphocytes % 18.0 Monocytes % 6.5 Eosinophils % 0.8 Basophils % 0.5 Nucleated RBC % 0.0 Absolute Neutrophils 8.51 H Absolute Lymphocytes 2.08 Absolute Monocytes 0.75 Absolute Eosinophils 0.09 Absolute Basophils 0.06 Sodium 136 Potassium 4.3 Chloride 101 Carbon Dioxide 27.9 Anion Gap 7.1 BUN 12 Creatinine 1.1 Est GFR (CKD-EPI 2020) 77.81 Glucose 87 Calcium 9.7 Phosphorus 3.3 Magnesium 2.0 Total Bilirubin 0.3 Conjugated Bilirubin 0.1 AST 23 ALT 26 Alkaline Phosphatase 123 H Total Protein 7.5 Albumin 4.1 Last Vital Signs Temp 35.7 C L 03/26/23 11:15 Pulse 77 03/26/23 11:15 Resp 18 03/26/23 11:15 BP 139/79 03/26/23 11:15 Pulse Ox 92 03/26/23 11:15 Time Spent Time spent with Patient: 40-54 minutes Time was spent: preparing to see the patient(eg.review tests), obtaining and/or reviewing separately otained hiistory, ordering medications,tests, procedures, referring, communicating with other health patient care manager, indepentently interpreting results, counseling the patient and care coordination
[2023-03-26 15:07] VITALS: BP 129/75; PULSE 67; RESP 16; TEMP 37.1; O2SAT 97
[2023-03-26] MEDS: Nicotine 14 MG/24 HR PATCH TD (15:35)
[2023-03-26] MEDS: Normal Saline Flush 10 ML SYR IVP (17:19)
[2023-03-26 19:57] VITALS: BP 123/71; PULSE 62; RESP 16; TEMP 36.6; O2SAT 95
[2023-03-26] MEDS: Methadone 10 MG TAB 20 MG PO (21:11)
[2023-03-26 23:42] VITALS: BP 120/70; PULSE 82; RESP 18; TEMP 36.8; O2SAT 95
[2023-03-27 03:38] VITALS: BP 122/68; PULSE 80; RESP 18; TEMP 36.6; O2SAT 95
[2023-03-27 07:11] LABS: Abs Immature Grans 0.03 10^3/uL (0.0-0.06); Absolute Basophil Count 0.05 10^3/uL (0.0-0.2); Absolute Eosinophil Count 0.33 10^3/uL (0.0-0.7); Absolute Lymphocyte Count 2.51 10^3/uL (1.2-3.4); Absolute Monocyte Count 0.96 10^3/uL (0.1-0.8); Absolute Neutrophil Count 6.23 10^3/uL (1.2-6.7); Basophils % 0.5; Eosinophils % 3.3; HCT 40.1 % (40.0-50.0); HGB 13.3 g/dL (13.5-17.5); Immature Grans % 0.3; Lymphocytes % 24.8; MCH 31.4 pg (27.0-33.0); MCHC 33.2 % (32.0-36.0); MCV 95 fL (80-95); MPV 10.8 fL (8.0-11.0); Monocytes % 9.5; Neutrophils % 61.6; Platelet Count 188 10^3/uL (130-400); RBC 4.23 10^6/uL (4.36-5.78); RDW 12.6 % (11.8-14.1); RDW-SD 43.8 fL; WBC 10.11 10^3/uL (4.4-10.8)
[2023-03-27 07:40] VITALS: BP 105/63; PULSE 62; RESP 16; TEMP 36.5; O2SAT 97
[2023-03-27 07:52] LABS: ALT 28 U/L (16-63); AST 23 U/L (15-37); Albumin 3.8 g/dL (3.4-5.0); Alkaline Phosphatase 123 U/L (46-116); Anion Gap 8.6 mmol/L (3-11); BUN 16 mg/dL (7-18); Bilirubin, Direct 0.1 mg/dL (0.0-0.2); Bilirubin, Total 0.5 mg/dL (0.2-1.0); CO2 27.4 mmol/L (21.0-32.0); CREATININE 1.1 mg/dL (0.70-1.30); Calcium 9.3 mg/dL (8.5-10.1); Chloride 101 mmol/L (98-107); Estimated GFR 77.81 (mL/min/1.73m2); Glucose 108 mg/dL (74-106); Magnesium 1.9 mg/dL (1.8-2.4); PHOSPHORUS 3.6 mg/dL (2.6-4.7); Potassium 4.4 mmol/L (3.5-5.1); Sodium 137 mmol/L (136-145); Total Protein 7.2 g/dL (6.4-8.2)
[2023-03-27] MEDS: Multivitamin TAB 1 TAB PO (08:29)
[2023-03-27] MEDS: Ferrous Sulfate 325 MG TAB PO (08:29)
[2023-03-27] MEDS: Nicotine 14 MG/24 HR PATCH TD (08:29)
--- NOTE | 2023-03-27 08:41 | PDOC.CMIN ---
Date of service: 03/27/23 Time of Service: 08:41 Care Management Initial Assmt Initial Assessment REASON FOR HOSPITALIZATION:: TPN initiation PREVIOUS FUNCTIONAL STATUS/SOCIAL/FAMILY SUPPORTS:: Krishan lives alone in [facility] with his dog. He retired in 2006, due to health issues and is disabled and on SSDI. Krishan drives and is fully independent at baseline. His Daughter Chitra lives in [place] and is currently staying with him until 04/07/23. His son Krishan lives in [place] and is also supportive. CURRENT FUNCTIONAL STATUS:: Krishan is sitting up in bed when CM met with him. He is awake and easily engages in conversation. TPN was unable to be started as an outpatient so he's planning to be here until at least tomorrow. ADVANCE DIRECTIVES:: None on file Has patient been provided with info about the portal/API?: Yes Did the patient sign up for the portal?: No CODE STATUS:: Full Code INSURANCE COVERAGE / FINANCIAL ISSUES:: AARP/. Health CURRENT HOME/COMMUNITY SERVICES/EQUIPMENT:: [facility] (ordered by PCP on 03/20/23) PRIMARY CARE PHYSICIAN:: Natty Mckinney POTENTIAL DISCHARGE NEEDS:: TPN recommendation from Nutrition TPN delivery from [facility] (PCP is responsible for TPN order) Cost for TPN is $216.86 weekly per [facility], CM notified pt. David from [facility] will discuss further with pt. Resumption of [facility] services PATIENT/FAMILY EDUCATION NEEDS:: Review discharge instructions, limitations, TPN teaching and plan to follow up with community providers. Discuss ask me three. TRANSPORTATION:: via private vehicle located in the parking lot PLAN:: [facility] needs 24 hours after their dietitian approves an order to mix TPN and ship. TPN is being initiated. Nutrition completed the [facility] Order form, which CM faxed to PCP for signature. Anticipate, Krishan will discharge home when TPN and [facility] RN services can be coordinated. CM will continue to follow. PFSH All Active Problems (Updated 03/26/23 @ 18:12 by Shantell Mccoy NP) Chronic prescription opiate use (Chronic) Short gut syndrome (Chronic) Discharge planning issues (Acute) DVT prophylaxis (Acute) Malnutrition (Acute) Internal derangement of right knee (Acute) Osteoarthritis of right knee (Acute) Vitamin B12 deficiency (Acute) Fatigue (Acute) Dyspnea on exertion (Acute) Depression (Chronic) Raynaud's disease (Acute) Postprandial vomiting (Acute) Smoker (Acute) Abdominal pain (Acute) Vision changes (Acute) Sinus pain (Acute) Joint pain (Acute) Syncope (Chronic) Ileostomy status (Chronic) Crohn's disease (Chronic) History of total right knee replacement (Acute 02/09/21) Arthrofibrosis of total knee arthroplasty (Acute) RIGHT S/P Manipulation: 04/20/2021 Pain in elbow joint (Acute) Ulnar abutment syndrome of both wrists (Acute) Degenerative arthritis of carpometacarpal joint of thumb (Acute) Disease of gallbladder, unspecified (Acute) Elevated liver function tests (Acute) Methadone use (Acute) Unintended weight loss (Chronic) Liver mass (Acute) Weakness (Acute) Dehydration (Acute) Medical History (Updated 03/26/23 @ 18:12 by Shantell Mccoy NP) Anemia Atrial enlargement, left Bilateral thumb pain Breast lump Complaint of pain of toe Dyspnea Elevated PSA Encounter for therapeutic drug level monitoring Gallstones Hematuria Hip pain History of pneumonia Infected cyst of skin tx with abx Neck pain Other complications following infusion, transfusion and therapeutic injection, subsequent encounter Other postprocedural complications and disorders of genitourinary system post procedure testicular pain Pain of knee joint on movement Paresthesia Pelvic pain Preoperative examination Preventative health care Prostate cancer Pulmonary nodule Radiculopathy affecting upper extremity RBBB Right knee pain RUQ pain Situational depression Tongue lesion Surgical History (Updated 03/26/23 @ 18:12 by Shantell Mccoy NP) Cataract extraction status History of creation of ostomy had in situ since 1988 Hx of total knee arthroplasty Social History Smoking/Tobacco Use Status: Current every day Tobacco Type: cigarettes Tobacco: How many years used: 44 Smoking risk assessment performed?: Yes Alcohol Intake: never Drug use: Socially Substance use type: former substance user and marijuana Household members: none Housing: apartment current occupation: Disabled Current gender identity: male Do you feel safe at home: Yes Do you feel safe in your relationship?: Yes Additional Social history: lives alone
[2023-03-27 11:04] VITALS: BP 146/74; PULSE 64; RESP 17; TEMP 36.7; O2SAT 98
--- NOTE | 2023-03-27 15:04 | W.PM.PROGNOT ---
Date of Service Date of service: 03/27/23 Time of Service: 15:05 Assessment and Plan Assessment and plan (1) Malnutrition: Status: Acute Assessment and plan: 2.5 years of > 30 pound weigh loss; Crohn's Disease and short gut syndrome after may abdominal surgeries. Groshong, right chest, placed uneventally on 03/21/2023 by surgery. Sent to hospital by PCP for TPN initiation Nutrition and pharmacy managing formula recipe (2) Unintended weight loss: Status: Chronic Assessment and plan: See above (3) Crohn's disease: Status: Chronic Assessment and plan: See above (4) Short gut syndrome: Status: Chronic Assessment and plan: See above (5) Ileostomy status: Status: Chronic Assessment and plan: Looks good, no redness, patient states it is in it's usual state (6) Chronic prescription opiate use: Status: Chronic Assessment and plan: Continue Methadone (7) DVT prophylaxis: Status: Acute Assessment and plan: Enoxaparin (8) Discharge planning issues: Status: Acute Assessment and plan: Home with HH when stable for continued TPN Discussed with Dr Sainz Subjective Subjective Patient reports: no new complaints Exam Const General: cooperative, comfortable and no acute distress Nutritional Appearance: thin Orientation: alert, awake and oriented x3 HENMT Head: normal to inspection, normocephalic and atraumatic Face and sinus: normal facial exam Neck Neck: normal visual inspection Chest Chest: normal inspection of the chest Resp Effort & Inspection: normal respiratory effort Cardio Other: pink warm dry and well perfused Skin General skin exam: no rashes or lesions noted Neuro General: patient alert, patient awake and patient oriented x3 Motor: muscle tone normal throughout Extrem General: normal to inspection, full ROM and no pedal edema Objective Last Vital Signs Temp 36.7 C 03/27/23 11:04 Pulse 64 03/27/23 11:04 Resp 17 03/27/23 11:04 BP 146/74 H 03/27/23 11:04 Pulse Ox 98 03/27/23 11:04 Laboratory Results - last 24 hr 03/27/23 03/27/23 06:52 06:52 WBC 10.11 RBC 4.23 L Hgb 13.3 L Hct 40.1 MCV 95 MCH 31.4 MCHC 33.2 RDW 12.6 Plt Count 188 MPV 10.8 Immature Gran % 0.3 Neutrophils % 61.6 Lymphocytes % 24.8 Monocytes % 9.5 Eosinophils % 3.3 Basophils % 0.5 Nucleated RBC % 0.0 Absolute Neutrophils 6.23 Absolute Lymphocytes 2.51 Absolute Monocytes 0.96 H Absolute Eosinophils 0.33 Absolute Basophils 0.05 Sodium 137 Potassium 4.4 Chloride 101 Carbon Dioxide 27.4 Anion Gap 8.6 BUN 16 Creatinine 1.1 Est GFR (CKD-EPI 2020) 77.81 Glucose 108 H Calcium 9.3 Phosphorus 3.6 Magnesium 1.9 Total Bilirubin 0.5 Conjugated Bilirubin 0.1 AST 23 ALT 28 Alkaline Phosphatase 123 H Total Protein 7.2 Albumin 3.8 Time Spent with Patient Time Spent with Patient: 35-49 minutes Time was spent: preparing to see the patient(eg.review tests), obtaining and/or reviewing separately otained hiistory, referring, communicating with other health skin care instructor, indepentently interpreting results and care coordination
[2023-03-27 15:14] VITALS: BP 113/65; PULSE 61; RESP 17; TEMP 36.9; O2SAT 99
[2023-03-27 20:03] VITALS: BP 116/68; PULSE 71; RESP 18; TEMP 36.5; O2SAT 97
[2023-03-27 23:32] VITALS: BP 113/66; PULSE 68; RESP 18; TEMP 36.6; O2SAT 98
[2023-03-28 04:06] VITALS: BP 111/65; PULSE 73; RESP 18; TEMP 36.3; O2SAT 99
[2023-03-28 05:11] VITALS: BP 122/71; PULSE 67; RESP 16; TEMP 35.9; O2SAT 98
[2023-03-28 07:28] LABS: Abs Immature Grans 0.02 10^3/uL (0.0-0.06); Absolute Basophil Count 0.04 10^3/uL (0.0-0.2); Absolute Lymphocyte Count 1.42 10^3/uL (1.2-3.4); Absolute Monocyte Count 0.62 10^3/uL (0.1-0.8); Absolute Neutrophil Count 5.12 10^3/uL (1.2-6.7); Basophils % 0.5; HCT 38.8 % (40.0-50.0); HGB 12.8 g/dL (13.5-17.5); Immature Grans % 0.3; Lymphocytes % 18.9; MCH 31.6 pg (27.0-33.0); MCV 96 fL (80-95); MPV 11.1 fL (8.0-11.0); Monocytes % 8.2; Neutrophils % 68.1; Platelet Count 173 10^3/uL (130-400); RBC 4.05 10^6/uL (4.36-5.78); RDW 12.6 % (11.8-14.1); RDW-SD 44.5 fL; WBC 7.52 10^3/uL (4.4-10.8)
[2023-03-28 07:33] VITALS: BP 116/69; PULSE 64; RESP 17; TEMP 36.6; O2SAT 98
[2023-03-28 07:46] LABS: Anion Gap 3.7 mmol/L (3-11); BUN 18 mg/dL (7-18); CO2 28.3 mmol/L (21.0-32.0); Calcium 9.1 mg/dL (8.5-10.1); Chloride 104 mmol/L (98-107); Estimated GFR 87.24 (mL/min/1.73m2); Glucose 106 mg/dL (74-106); Magnesium 2.1 mg/dL (1.8-2.4); Potassium 4.7 mmol/L (3.5-5.1); Sodium 136 mmol/L (136-145)
[2023-03-28] MEDS: Multivitamin TAB 1 TAB PO (08:16)
[2023-03-28] MEDS: Ferrous Sulfate 325 MG TAB PO (08:16)
[2023-03-28] MEDS: Nicotine 14 MG/24 HR PATCH TD (08:16)
--- NOTE | 2023-03-28 10:37 | CHAPLAIN ---
I had a brief visit with Krishan. His pump was beeping loudly, so he was more focused on that. I explained my role and offered support. Krishan said he's in touch with family and seemed to be comfortable being here. I let the clinical coordinator know that Krishan's pump was beeping. I will continue to visit.
--- NOTE | 2023-03-28 11:05 | DSE_ITS ---
Date of service: 03/28/23 Time of Service: 11:05 DS: Diagnosis Discharge Diagnosis (1) Malnutrition: Status: Acute (2) Unintended weight loss: Status: Chronic (3) Crohn's disease: Status: Chronic (4) Short gut syndrome: Status: Chronic (5) Ileostomy status: Status: Chronic (6) Chronic prescription opiate use: Status: Chronic Discharge Plan Disposition Patient Disposition: Home W/Home Health Services Condition: Stable Discharge Details Reason For Visit: Malnutrition/Dehydration Admit Date/Time: 03/26/23 11:07 Admit Provider: Karime Sainz Attending Provider: Karime Sainz Primary Care Provider: Natty Mckinney V Hospital Course Hospital Course: This is a 57-year-old gentleman with history of Crohn's disease ileostomy short gut syndrome who presented for initiation of TPN for malnutrition. Superintendent Stations was consulted and he was started on TPN as recommended. He tolerated this well. No evidence of refeeding syndrome. Outpatient team has made arrangements for him to continue with TPN at home now that he is tolerating well. He is being discharged to home with home health services as arranged by primary care provider discharge discussed with Dr. Sainz Home Meds and New Rx's Prescriptions: New Intralipid 20 % Emulsion 50 g IVPB DAILY Qty: 0 0RF Continued ondansetron HCl [Zofran] 4 mg Tablet 4 mg PO Q6H PRN hydrocodone-acetaminophen 10-325 mg Tablet 2 tab PO Q8H PRN diphenoxylate-atropine [Lomotil] 2.5-0.025 mg tablet 4 tab PO TID Centrum Men 8 mg iron- 200 mcg-600 mcg tablet 1 tab PO DAILY ferrous sulfate 325 mg (65 mg iron) tablet 325 mg PO DAILY cyanocobalamin (vitamin B-12) 1,000 mcg/mL kit 1,000 mcg subcut .[id number] methadone [Dolophine] 10 mg tablet 20 mg PO HS Patient Comments: Pt. states he takes this medication 0900pm 0200am 0400am nicotine [Nicoderm CQ] 14 mg/24 hr Patch 24 Hour 1 patch TRANSDERMAL DAILY diclofenac sodium [Voltaren] 1 % Gel 2 - 4 g TOPICAL QID PRN (Reason: Hand pain) naloxone [Narcan] 4 mg/actuation [place],Non-Aerosol 1 spray INTRANASAL Q3M Discharge Instructions Instructions: Malnutrition (DC) Additional Instructions: TPN as directed central catheter care as directed outpatient monitoring and orders to managed through primary care provider Stand Alone Forms: Nursing Discharge Form Referrals: Natty Mckinney MD [Primary Care Provider] - 04/05/23 9:00 am (Keep your appointment April 05 at 9am! ) Activity:: Activity as Tolerated Equipment/Supplies:: central line supplies Diet:: As Tolerated Discharge Orders Discharge Orders: Discharge Order (Routine); Ordered 03/28/23 Ordered By: Adina Ochoa Discharge Data Discharge Date/Time-TO BE ENTERED AT DEPARTURE: 03/28/23 11:50 DS: Summary Time Spent with Patient providing and/or coordinating discharge services: Less than 30 minutes Status at Discharge Functional status at discharge: independent ambulation Overall status at discharge: patient is back to baseline Mental Status: mental status grossly normal Speech and Movement: speech and movement normal Mood: congruent mood Affect: normal affect Exam Const General: cooperative, comfortable and no acute distress Nutritional Appearance: thin Orientation: alert, awake and oriented x3 HENMT Head: normal to inspection, normocephalic and atraumatic Face and sinus: normal facial exam Neck Neck: normal visual inspection Chest Chest: normal inspection of the chest Resp Effort & Inspection: normal respiratory effort Cardio Other: pink warm dry and well perfused Skin General skin exam: no rashes or lesions noted Neuro General: patient alert, patient awake and patient oriented x3 Motor: muscle tone normal throughout Extrem General: normal to inspection, full ROM and no pedal edema Psych Mental Status: mental status grossly normal Speech and Movement: speech and movement normal Mood: congruent mood Affect: normal affect DS: Data Vitals/I&O Vitals and I&O: Vital Signs Temperature 36.6 C 03/28/23 07:33 Temperature Source Tympanic 03/28/23 07:33 Pulse 64 03/28/23 07:33 Pulse Rhythm Regular 03/28/23 08:17 Respiratory Rate 17 03/28/23 07:33 Respiratory Effort Normal, Non-Labored 03/28/23 08:17 Respiratory Depth Normal 03/28/23 08:17 Respiratory Pattern Normal 03/28/23 08:17 Blood Pressure 116/69 03/28/23 07:33 Pulse Oximetry 98 03/28/23 07:33 Oxygen Delivery Method Room Air 03/28/23 07:33 Oxygen Flow Rate 0 05/10/23 07:33 Pain Level 5 03/28/23 07:33 Intake & Output 03/27/23 03/27/23 03/28/23 11:59 23:59 11:59 Intake Total 1270 / 1750 480 / 1750 1031 / 1031 Output Total 1649 Balance -380 / -250 130 / -250 1031 / 1031 Weight 57.7 kg Intake: IV 1031 / 1031 Oral 1270 / 1750 480 / 1750 Output: Urine 1649 Other: Urine Color Straw Yellow Urine Appearance Clear Clear Clear Urine Odor Normal Comment Void x1 in the urinal. Pt. denies any urinary discomfort at this time. pt states he used the bathroom this morning Voiding Methods Urinal Toilet Toilet Data Completed and Pending Labs on day of discharge: Labs from last 24 hours 03/28/23 03/28/23 06:27 06:27 WBC 7.52 RBC 4.05 L Hgb 12.8 L Hct 38.8 L MCV 96 H MCH 31.6 MCHC 33.0 RDW 12.6 Plt Count 173 MPV 11.1 H Immature Gran % 0.3 Neutrophils % 68.1 Lymphocytes % 18.9 Monocytes % 8.2 Eosinophils % 4.0 Basophils % 0.5 Nucleated RBC % 0.0 Absolute Neutrophils 5.12 Absolute Lymphocytes 1.42 Absolute Monocytes 0.62 Absolute Eosinophils 0.30 Absolute Basophils 0.04 Sodium 136 Potassium 4.7 Chloride 104 Carbon Dioxide 28.3 Anion Gap 3.7 BUN 18 Creatinine 1.0 Est GFR (CKD-EPI 2020) 87.24 Glucose 106 Calcium 9.1 Phosphorus 3.0 Magnesium 2.1 PFSH All Active Problems (Updated 03/29/23 @ 00:14 by GABO WHITLOCK) Chronic prescription opiate use (Chronic) Short gut syndrome (Chronic) Discharge planning issues (Acute) DVT prophylaxis (Acute) Malnutrition (Acute) Internal derangement of right knee (Acute) Osteoarthritis of right knee (Acute) Vitamin B12 deficiency (Acute) Fatigue (Acute) Dyspnea on exertion (Acute) Depression (Chronic) Raynaud's disease (Acute) Postprandial vomiting (Acute) Smoker (Acute) Abdominal pain (Acute) Vision changes (Acute) Sinus pain (Acute) Joint pain (Acute) Syncope (Chronic) Ileostomy status (Chronic) Crohn's disease (Chronic) History of total right knee replacement (Acute 02/09/21) Arthrofibrosis of total knee arthroplasty (Acute) RIGHT S/P Manipulation: 04/20/2021 Pain in elbow joint (Acute) Ulnar abutment syndrome of both wrists (Acute) Degenerative arthritis of carpometacarpal joint of thumb (Acute) Disease of gallbladder, unspecified (Acute) Elevated liver function tests (Acute) Methadone use (Acute) Unintended weight loss (Chronic) Liver mass (Acute) Medical History (Updated 03/29/23 @ 00:14 by GABO WHITLOCK) Anemia Atrial enlargement, left Bilateral thumb pain Breast lump Complaint of pain of toe Dyspnea Elevated PSA Encounter for therapeutic drug level monitoring Gallstones Hematuria Hip pain History of pneumonia Infected cyst of skin tx with abx Neck pain Other complications following infusion, transfusion and therapeutic injection, subsequent encounter Other postprocedural complications and disorders of genitourinary system post procedure testicular pain Pain of knee joint on movement Paresthesia Pelvic pain Preoperative examination Preventative health care Prostate cancer Pulmonary nodule Radiculopathy affecting upper extremity RBBB Right knee pain RUQ pain Situational depression Tongue lesion Surgical History (Updated 03/26/23 @ 18:12 by Shantell Mccoy NP) Cataract extraction status History of creation of ostomy had in situ since 1988 Hx of total knee arthroplasty Social History Smoking/Tobacco Use Status: Current every day Tobacco Type: cigarettes Tobacco: How many years used: 44 Smoking risk assessment performed?: Yes Alcohol Intake: never Drug use: Socially Substance use type: former substance user and marijuana Household members: none Housing: apartment current occupation: Disabled Current gender identity: male Do you feel safe at home: Yes Do you feel safe in your relationship?: Yes Additional Social history: lives alone Time Spent with Patient Time Spent with Patient: <45 minutes Time was spent: referring, communicating with other health body care manager and care coordination
--- NOTE | 2023-03-28 11:18 | PDOC.HHF2F_ITS ---
Home Health Referral Home Health Orders Clinical synopsis of why skilled professionals are needed: TPN and central line care Medical diagnosis necessitation home health referral: short gut syndrome, malnutrition Registered Nurse: Check all that apply Instruct on new or changed medication(s)/assess compliance: Ordered (TPN) Assess for exacerbation of medical condition, instruct patient/caregivers on signs and symptoms to report for early detection: Ordered IV therapy, consisting of: TPN and routine central line care Assess wound for signs and symptoms of infection, instruct on wound care and/or provide skilled wound care consisting of: central line care Encounter Date and Reason: I certify that a FTF encounter for this patient was performed on March 28, 2023 and that such encounter was related to the primary reason the patient requires home health services. The encounter was conducted in the following manner: * By me as the certifying physician, CT TECHNOLOGIST, PA or * By an inpatient physician, CT TECHNOLOGIST or PA during an inpatient stay who communicated findings to me, Certification And Authentication I certify that I composed the above information based on my clinical judgment relating to this patient's medical condition and, if applicable, clinical fi ndings communicated to me by the NPP or inpatient physician who performed the FTF encounter. Name of Provider that will be monitoring home health services: Natty Mckinney
--- NOTE | 2023-03-28 12:27 | CMDISCH_ITS ---
LACE Index Scoring Tool Questions: Length of Stay (in days): 2 Was the patient admitted via the E.D.?: No E.D. Visits: 2 Answers: Total Score: 4 Risk of Readmission: Low Risk Care Management Discharge Plan Reason for Hospitalization: TPN initiation Discharge Plan: TPN is coordinated through [facility] and delivery is anticipated in 1-2 days. Krishan is discharged home via private vehicle with resumption of [facility] RN services. Krishan will follow up with his PCP and discharge plan of care as prescribed. Krishan is interested in applying for state benefits, including Medicaid and is working with a CHW at [facility]. Patient/Family Education Needs: Review discharge instructions, limitations, medications and plan to follow up with community providers and [facility]. Discuss ask me three and goals of self care. Services Needed at Discharge: DME Agency (TPN through [facility]. Delivery is anticipated in 1-2 days ([facility] agrees to update [facility], DME delivery plan) Cost is $216.86 weekly (Pt accepts cost, and working with [facility] to apply for Medicaid). [facility] RN is ordered. PCP will follow outpatient.) and Home Health Care Services ([facility] RN ordered to support home TPN. [facility] is notified. )
== END 2023-03-28 11:50 | disposition home health service (06) | DRG 641 ==
PROVIDERS: Admitting Provider Internal Medicine; PCP Family Medicine; Visit Provider Internal Medicine
DX: E46 Unspecified protein-calorie malnutrition (principal); Z68.1 Body mass index [BMI] 19.9 or less, adult; K91.2 Postsurgical malabsorption, not elsewhere classified; F11.20 Opioid dependence, uncomplicated; K50.90 Crohn's disease, unspecified, without complications; Z93.2 Ileostomy status; R63.4 Abnormal weight loss; E53.8 Deficiency of other specified B group vitamins; F32.A Depression, unspecified; I73.00 Raynaud's syndrome without gangrene; Z96.651 Presence of right artificial knee joint; D64.9 Anemia, unspecified; I45.10 Unspecified right bundle-branch block
CPT/HCPCS: 36415; 80048; 80076; 85027; 83735; 84100; 85025; 99222; 99233; 99238

== ENCOUNTER 2023-04-02 16:25 | Outpatient (REF) | payer MEDICARE, SELFPAY ==
[2023-04-02 12:36] LABS: Abs Immature Grans 0.05 10^3/uL (0.0-0.06); Absolute Basophil Count 0.05 10^3/uL (0.0-0.2); Absolute Eosinophil Count 0.51 10^3/uL (0.0-0.7); Absolute Neutrophil Count 10.16 10^3/uL (1.2-6.7); Basophils % 0.4; Eosinophils % 3.9; HCT 40.5 % (40.0-50.0); HGB 13.3 g/dL (13.5-17.5); Immature Grans % 0.4; Lymphocytes % 11.5; MCH 31.2 pg (27.0-33.0); MCHC 32.8 % (32.0-36.0); MCV 95 fL (80-95); MPV 11.3 fL (8.0-11.0); Monocytes % 6.1; Neutrophils % 77.7; Platelet Count 224 10^3/uL (130-400); RBC 4.26 10^6/uL (4.36-5.78); RDW 12.8 % (11.8-14.1); WBC 13.07 10^3/uL (4.4-10.8)
[2023-04-02 13:18] LABS: ALT 51 U/L (16-63); AST 31 U/L (15-37); Albumin 4.1 g/dL (3.4-5.0); Alkaline Phosphatase 158 U/L (46-116); Anion Gap 6.1 mmol/L (3-11); BUN 12 mg/dL (7-18); Bilirubin, Total 0.5 mg/dL (0.2-1.0); CO2 29.9 mmol/L (21.0-32.0); Calcium 9.6 mg/dL (8.5-10.1); Chloride 100 mmol/L (98-107); Estimated GFR 87.24 (mL/min/1.73m2); Glucose 126 mg/dL (74-106); PHOSPHORUS 3.1 mg/dL (2.6-4.7); Potassium 4.6 mmol/L (3.5-5.1); Sodium 136 mmol/L (136-145); Total Protein 6.8 g/dL (6.4-8.2)
[2023-04-02 13:49] LABS: Triglyceride 74 mg/dL (<150)
[2023-04-02 18:34] LABS: C-Reactive Protein 1.48 mg/dL (0.0-0.3)
== END 2023-04-02 16:26 | disposition home or self-care (01) ==
LOC: NCHCN 16:25
PROVIDERS: PCP Family Medicine; Visit Provider Family Medicine
DX: E46 Unspecified protein-calorie malnutrition (principal); K91.2 Postsurgical malabsorption, not elsewhere classified; R79.89 Other specified abnormal findings of blood chemistry; R79.82 Elevated C-reactive protein (CRP)
CPT/HCPCS: 80053; 84100; 84478; 85025; 86140

== ENCOUNTER 2023-04-03 09:57 | Emergency (ER) | payer MEDICARE, SELFPAY ==
[2023-04-03 10:00] VITALS: BP 140/64; PULSE 87; RESP 15; TEMP 37.3; O2SAT 99
--- NOTE | 2023-04-03 10:00 | DI.RAD_ITS ---
Exam(s) XR CHEST 2V PA LATERAL EXAM: XR CHEST 2V PA LATERAL CLINICAL HISTORY: chest pain during TPN infusion TECHNIQUE: 2D digital imaging was performed of the chest. Two images were obtained. PA and lateral views were obtained. COMPARISON: CR XR CHEST 2V PA LATERAL from 04/24/2019 FINDINGS: MEDIASTINUM: Normal. HEART: Normal. PULMONARY VASCULATURE: Normal. LUNGS: Clear. PLEURAL SPACE: No pleural effusion or pneumothorax. BONE:Within normal limits for the patient's age. OTHER FINDINGS:The right-sided central venous catheter tip is in good position at the junction of the superior vena cava and right atrium. IMPRESSION: No acute pulmonary findings. DATA REPOSITORY: RADIATION DOSE DELIVERED:
--- NOTE | 2023-04-03 10:00 | RT.EKG_ITS ---
APPROVED REPORT Exam: Resting ECG Reason for Exam: chest pain Patient Location: E HR:66 bpm ECG Measurements Heart Rate 66 AXIS WV 164 P 79 QRSd 93 QRS 45 QT 391 T 66 QTc 409 Conclusion Sinus rhythm...normal P axis, V-rate 60- 99 Probable left atrial enlargement...P >50mS, <-0.10mV V1 ST elevation suggests acute pericarditis...ST >0.10mV, ant/lat/inf Tall T, consider metabolic/ischemic abnrm...T >1.2mV sinus rhythm, normal axis, normal intervals, likely J point elevation and timothy voltage due to body h abitus
--- NOTE | 2023-04-03 10:15 | W.ED.GENAD ---
Discharge Plan Disposition Patient Disposition: Home Condition: Improving Discharge Details Chief Complaint: GenMedical Clinical Impression: Chest pain Primary Care Provider: Natty Mckinney V ED Provider: Micky Recio Home Meds and New Rx's Prescriptions: No Action ondansetron HCl [Zofran] 4 mg Tablet 4 mg PO Q6H PRN hydrocodone-acetaminophen 10-325 mg Tablet 2 tab PO Q8H PRN diphenoxylate-atropine [Lomotil] 2.5-0.025 mg tablet 4 tab PO TID Centrum Men 8 mg iron- 200 mcg-600 mcg tablet 1 tab PO DAILY ferrous sulfate 325 mg (65 mg iron) tablet 325 mg PO DAILY cyanocobalamin (vitamin B-12) 1,000 mcg/mL kit 1,000 mcg subcut .[id number] methadone [Dolophine] 10 mg tablet 20 mg PO HS Patient Comments: Pt. states he takes this medication 0900pm 0200am 0400am Intralipid 20 % Emulsion 50 g IVPB DAILY Qty: 0 0RF nicotine [Nicoderm CQ] 14 mg/24 hr Patch 24 Hour 1 patch TRANSDERMAL DAILY diclofenac sodium [Voltaren] 1 % Gel 2 - 4 g TOPICAL QID PRN (Reason: Hand pain) naloxone [Narcan] 4 mg/actuation [place],Non-Aerosol 1 spray INTRANASAL Q3M Discharge Instructions Instructions: Chest Pain (ED) Additional Instructions: Please follow-up with your primary care physician. Please return to the emergency department for any worsening symptoms Medical Decision Making 57-year-old male presents referred in for evaluation of elevated white blood cell count inflammatory markers in the setting of TPN use, chest pain intermittently during TPN infusions over the last couple of days. Did not administer infusion yesterday due to discomfort. Patient is hemodynamically stable afebrile nontoxic no respiratory distress. Port site appears clean dry intact. Will assess basic labs, blood cultures, chest x-ray EKG. 12: 58 patient resting comfortably no acute distress. Low blood cell count within normal limits. Chest x-ray unremarkable. Blood cultures drawn. Patient feeling better after fluids. Home care instructions and return precautions given. HPI General Date/Time Provider Initiated Documentation: 04/03/23 09:58. HPI Narrative: 57-year-old male history of Crohn's, short gut syndrome, recently started on TPN, presents referred for evaluation of abnormal inflammatory markers, elevated white blood cell count CRP per outpatient labs, patient has been having intermittent chest discomfort during TPN infusion. Related Data Home Medications Medication Instructions Recorded Confirmed diphenoxylate-atropine 2.5 4 tab PO TID 12/08/20 04/03/23 mg-0.025 mg tablet (Lomotil) diclofenac sodium 1 % topical gel 2 - 4 g topical QID PRN Hand pain 02/07/21 04/03/23 (Voltaren) naloxone 4 mg/actuation nasal 1 spray intranasal Q3M 02/07/21 04/03/23 spray (Narcan) nicotine 14 mg/24 hr daily 1 patch transdermal DAILY 02/07/21 04/03/23 transdermal patch (Nicoderm CQ) hydrocodone 10 mg-acetaminophen 2 tab PO Q8H PRN 03/23/21 04/03/23 325 mg tablet ondansetron HCl 4 mg tablet 4 mg PO Q6H PRN 03/23/21 04/03/23 (Zofran) cyanocobalamin (vitamin B-12) 1,000 mcg subcut .[id number] 10/09/22 04/03/23 1,000 mcg/mL injection kit ferrous sulfate 325 mg (65 mg 325 mg PO DAILY 10/09/22 04/03/23 iron) tablet multivit,Ca,min-iron 8 mg-folic 1 tab PO DAILY 10/09/22 04/03/23 acid 200 mcg-lycopene 600 mcg tablet (Centrum Men) methadone 10 mg tablet (Dolophine) 20 mg PO HS 10/23/22 04/03/23 fat emulsion 20 % intravenous 50 g IVPB DAILY #0 mL 03/28/23 04/03/23 (Intralipid) Previous Rx's Medication Instructions Recorded fat emulsion 20 % intravenous 50 g IVPB DAILY #0 mL 03/28/23 (Intralipid) Allergies Allergy/AdvReac Type Severity Reaction Status Date / Time No Known Allergies Allergy Verified 04/03/23 10:05 General Stated Complaint: GenMedical GENET: 3 Review of Systems Narrative: Review of Systems Constitutional: negative Eyes: negative ENT: negative Cardiovascular: Chest pain Respiratory: negative Gastrointestinal: negative : negative Musculoskeletal: negative Skin: negative Neurologic: negative Psych: negative PFSH All Active Problems (Updated 04/03/23 @ 12:59 by Micky Recio MD) Chest pain (Acute) Chronic prescription opiate use (Chronic) Short gut syndrome (Chronic) Malnutrition (Acute) Internal derangement of right knee (Acute) Osteoarthritis of right knee (Acute) Vitamin B12 deficiency (Acute) Fatigue (Acute) Dyspnea on exertion (Acute) Depression (Chronic) Raynaud's disease (Acute) Postprandial vomiting (Acute) Smoker (Acute) Abdominal pain (Acute) Vision changes (Acute) Sinus pain (Acute) Joint pain (Acute) Syncope (Chronic) Ileostomy status (Chronic) Crohn's disease (Chronic) History of total right knee replacement (Acute 02/09/21) Arthrofibrosis of total knee arthroplasty (Acute) RIGHT S/P Manipulation: 04/20/2021 Pain in elbow joint (Acute) Ulnar abutment syndrome of both wrists (Acute) Degenerative arthritis of carpometacarpal joint of thumb (Acute) Disease of gallbladder, unspecified (Acute) Elevated liver function tests (Acute) Methadone use (Acute) Unintended weight loss (Chronic) Liver mass (Acute) Medical History (Updated 04/03/23 @ 12:59 by Micky Recio MD) Anemia Atrial enlargement, left Bilateral thumb pain Breast lump Complaint of pain of toe Dyspnea Elevated PSA Encounter for therapeutic drug level monitoring Gallstones Hematuria Hip pain History of pneumonia Infected cyst of skin tx with abx Neck pain Other complications following infusion, transfusion and therapeutic injection, subsequent encounter Other postprocedural complications and disorders of genitourinary system post procedure testicular pain Pain of knee joint on movement Paresthesia Pelvic pain Preoperative examination Preventative health care Prostate cancer Pulmonary nodule Radiculopathy affecting upper extremity RBBB Right knee pain RUQ pain Situational depression Tongue lesion Surgical History (Updated 03/26/23 @ 18:12 by Shantell Mccoy NP) Cataract extraction status History of creation of ostomy had in situ since 1988 Hx of total knee arthroplasty Social History Smoking/Tobacco Use Status: Current every day Tobacco Type: cigarettes Tobacco: How many years used: 44 Smoking risk assessment performed?: Yes Alcohol Intake: never Drug use: Socially Substance use type: former substance user and marijuana Household members: none Housing: apartment current occupation: Disabled Current gender identity: male Do you feel safe at home: Yes Do you feel safe in your relationship?: Yes Additional Social history: lives alone Exam Narrative Exam Narrative: Physical Examination General: alert, awake, cooperative, resting comfortably, no acute distress HEENT: normocephalic, atraumatic; PERRL, EOM intact, conjunctiva normal; no nasal discharge; moist mucous membranes, oral and pharyngeal mucosa normal, tolerating secretions Neck: supple, trachea midline; full ROM Chest: normal to inspection; port site clean dry intact Respiratory: normal respiratory effort, speaking in full sentences, clear to auscultation, no wheezing, rales or rhonchi Cardiac: regular rate, regular rhythm, S1S2 intact, no murmurs rubs or gallops GI: abdomen soft, non-tender, non-distended; no palpable mass or hepatosplenomegaly Skin: no lesions, rashes or trauma appreciated Neuro: AAOx3, normal speech, moving all extremities Psych: Appropriate mood and affect Course Vital Signs Vital signs: Vital Signs Temperature 37.3 C 04/03/23 10:00 Pulse 87 04/03/23 10:00 Respiratory Rate 15 04/03/23 10:00 Blood Pressure 140/64 04/03/23 10:00 Pulse Oximetry 99 04/03/23 10:00 Temperature 37.3 C 04/03/23 10:00 Temperature Source Temporal Artery Scan 04/03/23 10:00 Pulse 87 04/03/23 10:00 Respiratory Rate 15 04/03/23 10:00 Respiratory Effort Normal 04/03/23 10:03 Blood Pressure 140/64 04/03/23 10:00 Pulse Oximetry 99 04/03/23 10:00 Lab/Test Results Lab/Test Results: 04/03/23 10:13 Blood Blood Culture - Pending 04/03/23 10:13 Blood Blood Culture - Pending
[2023-04-03] MEDS: Normal Saline 1,000 ML 1000 ML IV (10:40)
[2023-04-03 10:42] LABS: Abs Immature Grans 0.03 10^3/uL (0.0-0.06); Absolute Basophil Count 0.05 10^3/uL (0.0-0.2); Absolute Eosinophil Count 0.59 10^3/uL (0.0-0.7); Absolute Lymphocyte Count 1.58 10^3/uL (1.2-3.4); Absolute Monocyte Count 0.63 10^3/uL (0.1-0.8); Basophils % 0.5; Eosinophils % 6.1; HCT 41.2 % (40.0-50.0); HGB 13.8 g/dL (13.5-17.5); Immature Grans % 0.3; Lymphocytes % 16.3; MCH 31.7 pg (27.0-33.0); MCHC 33.5 % (32.0-36.0); MCV 95 fL (80-95); MPV 10.1 fL (8.0-11.0); Monocytes % 6.5; Neutrophils % 70.3; Platelet Count 233 10^3/uL (130-400); RBC 4.36 10^6/uL (4.36-5.78); RDW 12.8 % (11.8-14.1); RDW-SD 44.6 fL; WBC 9.68 10^3/uL (4.4-10.8)
[2023-04-03 10:57] LABS: ALT 40 U/L (16-63); AST 22 U/L (15-37); Alkaline Phosphatase 156 U/L (46-116); Anion Gap 5.6 mmol/L (3-11); BUN 16 mg/dL (7-18); Bilirubin, Total 0.4 mg/dL (0.2-1.0); CO2 27.4 mmol/L (21.0-32.0); CREATININE 1.2 mg/dL (0.70-1.30); Calcium 9.8 mg/dL (8.5-10.1); Chloride 103 mmol/L (98-107); Glucose 127 mg/dL (74-106); Potassium 4.5 mmol/L (3.5-5.1); Sodium 136 mmol/L (136-145); Total Protein 7.6 g/dL (6.4-8.2); Troponin I < 50 ng/L (<or=60)
[2023-04-03 13:09] VITALS: BP 127/69; PULSE 84; RESP 18; O2SAT 97
== END 2023-04-03 13:10 | disposition home or self-care (01) ==
PROVIDERS: Emergency Provider Emergency Medicine; PCP Family Medicine
DX: R07.9 Chest pain, unspecified (principal); D72.829 Elevated white blood cell count, unspecified; K50.90 Crohn's disease, unspecified, without complications; E63.8 Other specified nutritional deficiencies
CPT/HCPCS: 80053; 87040; 93005; 96360; 96361; 99284; 71046; 84484; 85025; 93010

== ENCOUNTER 2023-04-09 13:38 | Outpatient (REF) | payer MEDICARE, SELFPAY ==
[2023-04-09 14:02] LABS: Abs Immature Grans 0.06 10^3/uL (0.0-0.06); Absolute Basophil Count 0.08 10^3/uL (0.0-0.2); Absolute Eosinophil Count 0.74 10^3/uL (0.0-0.7); Absolute Lymphocyte Count 1.81 10^3/uL (1.2-3.4); Absolute Monocyte Count 0.78 10^3/uL (0.1-0.8); Basophils % 0.7; Eosinophils % 6.5; HCT 38.9 % (40.0-50.0); HGB 12.7 g/dL (13.5-17.5); Immature Grans % 0.5; MCH 31.8 pg (27.0-33.0); MCHC 32.6 % (32.0-36.0); MCV 97 fL (80-95); MPV 11.6 fL (8.0-11.0); Monocytes % 6.9; Neutrophils % 69.4; Platelet Count 239 10^3/uL (130-400); RDW 12.8 % (11.8-14.1); RDW-SD 45.7 fL; WBC 11.32 10^3/uL (4.4-10.8)
[2023-04-09 14:06] LABS: Absolute Neutrophil Count 7.86 10^3/uL (1.2-6.7)
[2023-04-09 14:13] LABS: ALT 27 U/L (16-63); AST 23 U/L (15-37); Alkaline Phosphatase 140 U/L (46-116); Anion Gap 4.1 mmol/L (3-11); BUN 16 mg/dL (7-18); Bilirubin, Total 0.3 mg/dL (0.2-1.0); C-Reactive Protein 0.33 mg/dL (0.0-0.3); CO2 29.9 mmol/L (21.0-32.0); CREATININE 1.1 mg/dL (0.70-1.30); Calcium 9.2 mg/dL (8.5-10.1); Calculated LDL 53 mg/dL (<100); Chloride 103 mmol/L (98-107); Cholesterol 126 mg/dL (<200); Estimated GFR 77.81 (mL/min/1.73m2); Glucose 86 mg/dL (74-106); HDL Cholesterol 50 mg/dL (40-60); PHOSPHORUS 3.3 mg/dL (2.6-4.7); Potassium 4.9 mmol/L (3.5-5.1); Sodium 137 mmol/L (136-145); Total Protein 6.7 g/dL (6.4-8.2); Triglyceride 117 mg/dL (<150)
[2023-04-10 09:45] LABS: Prealbumin 29 mg/dL (20-40)
== END 2023-04-09 13:39 | disposition home or self-care (01) ==
LOC: NCHCN 13:38
PROVIDERS: PCP Family Medicine; Visit Provider Family Medicine
DX: E46 Unspecified protein-calorie malnutrition (principal); K91.2 Postsurgical malabsorption, not elsewhere classified
CPT/HCPCS: 80053; 80061; 83735; 84100; 84134; 85025; 86140

== ENCOUNTER 2023-04-12 12:40 | Outpatient (REF) | payer MEDICARE, SELFPAY ==
[2023-04-12 12:19] LABS: Abs Immature Grans 0.06 10^3/uL (0.0-0.06); Absolute Basophil Count 0.06 10^3/uL (0.0-0.2); Absolute Eosinophil Count 1.34 10^3/uL (0.0-0.7); Absolute Lymphocyte Count 1.73 10^3/uL (1.2-3.4); Absolute Neutrophil Count 11.77 10^3/uL (1.2-6.7); Basophils % 0.4; Eosinophils % 8.4; HCT 36.2 % (40.0-50.0); HGB 12.1 g/dL (13.5-17.5); Immature Grans % 0.4; Lymphocytes % 10.8; MCH 31.4 pg (27.0-33.0); MCHC 33.4 % (32.0-36.0); MCV 94 fL (80-95); MPV 11.4 fL (8.0-11.0); Monocytes % 6.4; Neutrophils % 73.6; Platelet Count 244 10^3/uL (130-400); RBC 3.85 10^6/uL (4.36-5.78); RDW 12.9 % (11.8-14.1); RDW-SD 44.5 fL; WBC 15.99 10^3/uL (4.4-10.8)
[2023-04-12 12:21] LABS: Absolute Monocyte Count 1.02 10^3/uL (0.1-0.8)
[2023-04-12 12:28] LABS: BUN 19 mg/dL (7-18); C-Reactive Protein 0.86 mg/dL (0.0-0.3); CREATININE 0.9 mg/dL (0.70-1.30); Calcium 8.6 mg/dL (8.5-10.1); Chloride 103 mmol/L (98-107); Glucose 159 mg/dL (74-106); Magnesium 1.8 mg/dL (1.8-2.4); Potassium 4.7 mmol/L (3.5-5.1); Sodium 136 mmol/L (136-145); Triglyceride 43 mg/dL (<150)
[2023-04-12 12:41] LABS: PHOSPHORUS 3.5 mg/dL (2.6-4.7)
[2023-04-13 10:04] LABS: Prealbumin 26 mg/dL (20-40)
== END 2023-04-12 12:41 | disposition home or self-care (01) ==
LOC: NCHCN 12:40
PROVIDERS: PCP Family Medicine; Visit Provider Family Medicine
DX: E46 Unspecified protein-calorie malnutrition (principal); K91.2 Postsurgical malabsorption, not elsewhere classified; R79.89 Other specified abnormal findings of blood chemistry; R79.82 Elevated C-reactive protein (CRP)
CPT/HCPCS: 80048; 83735; 84100; 84134; 84478; 85025; 86140

== ENCOUNTER 2023-04-13 13:47 | Outpatient (CLI) | payer MEDICARE, SELFPAY ==
[2023-04-13 13:52] LABS: Abs Immature Grans 0.06 10^3/uL (0.0-0.06); HCT 35.4 % (40.0-50.0); HGB 11.7 g/dL (13.5-17.5); MCH 31.2 pg (27.0-33.0); MCHC 33.1 % (32.0-36.0); MCV 94 fL (80-95); MPV 10.5 fL (8.0-11.0); Platelet Count 220 10^3/uL (130-400); RBC 3.75 10^6/uL (4.36-5.78); RDW 12.9 % (11.8-14.1); WBC 12.42 10^3/uL (4.4-10.8)
[2023-04-13 14:10] LABS: Absolute Basophil Count 0.12 10^3/uL (0.0-0.2); Absolute Eosinophil Count 2.24 10^3/uL (0.0-0.7); Absolute Lymphocyte Count 1.74 10^3/uL (1.2-3.4); Absolute Monocyte Count 0.37 10^3/uL (0.1-0.8); Absolute Neutrophil Count 7.95 10^3/uL (1.2-6.7); Atypical Lymphocytes % 0; Diff Comment Manual Differential; RBC Morphology Normal
[2023-04-13 14:16] LABS: C-Reactive Protein 0.95 mg/dL (0.0-0.3)
== END 2023-04-13 13:48 | disposition home or self-care (01) ==
LOC: LBO 13:47
PROVIDERS: PCP Family Medicine; Visit Provider Family Medicine
DX: D72.829 Elevated white blood cell count, unspecified (principal); R79.82 Elevated C-reactive protein (CRP); R07.89 Other chest pain
CPT/HCPCS: 36415; 87040; 85025; 86140

== ENCOUNTER 2023-04-16 15:08 | Outpatient (REF) | payer MEDICARE, SELFPAY ==
[2023-04-16 15:18] LABS: Abs Immature Grans 0.08 10^3/uL (0.0-0.06); Absolute Basophil Count 0.06 10^3/uL (0.0-0.2); Absolute Eosinophil Count 2.62 10^3/uL (0.0-0.7); Absolute Monocyte Count 0.98 10^3/uL (0.1-0.8); Basophils % 0.4; Eosinophils % 16.6; HCT 37.8 % (40.0-50.0); HGB 12.2 g/dL (13.5-17.5); Immature Grans % 0.5; Lymphocytes % 12.5; MCH 31.4 pg (27.0-33.0); MCHC 32.3 % (32.0-36.0); MCV 97 fL (80-95); MPV 11.3 fL (8.0-11.0); Monocytes % 6.2; Neutrophils % 63.8; Platelet Count 228 10^3/uL (130-400); RBC 3.89 10^6/uL (4.36-5.78); RDW 13.2 % (11.8-14.1); RDW-SD 47.2 fL; WBC 15.81 10^3/uL (4.4-10.8)
[2023-04-16 16:01] LABS: Absolute Lymphocyte Count 1.98 10^3/uL (1.2-3.4); Absolute Neutrophil Count 10.09 10^3/uL (1.2-6.7)
[2023-04-16 16:02] LABS: Diff Comment Diff Reviewed; RBC Morphology Normal
== END 2023-04-16 15:09 | disposition home or self-care (01) ==
LOC: NCHCN 15:08
PROVIDERS: PCP Family Medicine; Visit Provider Family Medicine
DX: E46 Unspecified protein-calorie malnutrition (principal); K91.2 Postsurgical malabsorption, not elsewhere classified
CPT/HCPCS: 80053; 83735; 84100; 84478; 85025

== ENCOUNTER 2023-04-17 12:52 | Outpatient (REF) | payer MEDICARE, SELFPAY ==
[2023-04-17 12:40] LABS: ALT 32 U/L (16-63); AST 24 U/L (15-37); Albumin 3.8 g/dL (3.4-5.0); Alkaline Phosphatase 152 U/L (46-116); BUN 18 mg/dL (7-18); Bilirubin, Total 0.3 mg/dL (0.2-1.0); C-Reactive Protein 0.86 mg/dL (0.0-0.3); CREATININE 0.9 mg/dL (0.70-1.30); Calcium 8.9 mg/dL (8.5-10.1); Chloride 104 mmol/L (98-107); Glucose 119 mg/dL (74-106); Magnesium 2.2 mg/dL (1.8-2.4); PHOSPHORUS 3.7 mg/dL (2.6-4.7); Potassium 4.8 mmol/L (3.5-5.1); Sodium 141 mmol/L (136-145); Total Protein 6.5 g/dL (6.4-8.2)
[2023-04-17 13:02] LABS: Triglyceride 39 mg/dL (<150)
[2023-04-18 10:24] LABS: Prealbumin 27 mg/dL (20-40)
[2023-04-20 19:41] LABS: Ferritin 55 ng/mL (22-322); Folate 14.1 ng/mL (See Note); Vitamin B12 881 pg/mL (211-911)
== END 2023-04-17 12:53 | disposition home or self-care (01) ==
LOC: NCHCN 12:52
PROVIDERS: PCP Family Medicine; Visit Provider Family Medicine
DX: E46 Unspecified protein-calorie malnutrition (principal); K91.2 Postsurgical malabsorption, not elsewhere classified; R79.89 Other specified abnormal findings of blood chemistry; R79.82 Elevated C-reactive protein (CRP); D64.9 Anemia, unspecified
CPT/HCPCS: 80053; 82607; 82728; 82746; 83735; 84100; 84134; 84478; 86140

== ENCOUNTER 2023-04-20 13:09 | Outpatient (REF) | payer MEDICARE, SELFPAY ==
[2023-04-20 14:32] LABS: Abs Immature Grans 0.09 10^3/uL (0.0-0.06); Absolute Basophil Count 0.08 10^3/uL (0.0-0.2); Absolute Eosinophil Count 1.81 10^3/uL (0.0-0.7); Absolute Lymphocyte Count 1.85 10^3/uL (1.2-3.4); Absolute Monocyte Count 0.74 10^3/uL (0.1-0.8); Basophils % 0.7; Eosinophils % 16.7; HGB 12.7 g/dL (13.5-17.5); Immature Grans % 0.8; MCH 30.9 pg (27.0-33.0); MCHC 32.6 % (32.0-36.0); MCV 95 fL (80-95); MPV 11.3 fL (8.0-11.0); Monocytes % 6.8; Platelet Count 226 10^3/uL (130-400); RBC 4.11 10^6/uL (4.36-5.78); RDW 13.2 % (11.8-14.1); RDW-SD 46.1 fL; WBC 10.86 10^3/uL (4.4-10.8)
[2023-04-20 15:22] LABS: ALT 37 U/L (16-63); AST 28 U/L (15-37); Albumin 3.8 g/dL (3.4-5.0); Alkaline Phosphatase 156 U/L (46-116); Anion Gap 7.3 mmol/L (3-11); BUN 21 mg/dL (7-18); Bilirubin, Total 0.3 mg/dL (0.2-1.0); CO2 27.7 mmol/L (21.0-32.0); CREATININE 0.9 mg/dL (0.70-1.30); Chloride 105 mmol/L (98-107); Ferritin 69 ng/mL (26-388); Folate 18.8 ng/mL (8.6-20.0); Glucose 105 mg/dL (74-106); Potassium 5.3 mmol/L (3.5-5.1); Sodium 140 mmol/L (136-145); Total Protein 6.5 g/dL (6.4-8.2); Vitamin B12 536 pg/mL (193-986)
[2023-04-20 15:32] LABS: C-Reactive Protein 0.35 mg/dL (0.0-0.3)
== END 2023-04-20 13:10 | disposition home or self-care (01) ==
LOC: NCHCN 13:09
PROVIDERS: PCP Family Medicine; Visit Provider Family Medicine
DX: D64.9 Anemia, unspecified (principal); R79.82 Elevated C-reactive protein (CRP); R07.9 Chest pain, unspecified; E53.8 Deficiency of other specified B group vitamins; D72.829 Elevated white blood cell count, unspecified
CPT/HCPCS: 80053; 82607; 82728; 82746; 85025; 86140

== ENCOUNTER 2023-04-23 00:57 | Outpatient (CLI) | payer MEDICARE, SELFPAY ==
--- NOTE | 2023-04-23 09:15 | DI.NM_ITS ---
APPROVED REPORT Exam: Pharmacologic Patient Location: Out-Patient Room/Bed: Stress Nurse: Jaelyn Jaquez RN Ordering Provider:SONJA ALVA, Contact Number: [phone] BMI: 18.61 Baseline Rhythm: Sinus Rhythm Indications: chest pain, TPN injection Medical History Medical History: Anemia, chron's disease, depression, PAINTING, joint pain, prostate CA, raynauds, smoker, syncope, liver mass Cardiac Medications: Zofran, methadone, ferrous sulfate, fat emulsion, vit B12, diphoxylate/atropine, nicotine patch Allergies: NKA Cardiac Risk Factors: Family Hx, smoker Previous Cardiac Procedures: none Pretest Chest Pain Characteristics: none Exercise History: Sedentary Physical Disabilities: None Lung Sounds: Clear to auscultation Heart Sounds: Regular Stress Test Details Test: Exercise stress converted to pharmacologic stress due to failure to obtain a diagnostic stress test. Nuclear Acquisition: Rest Tc-99m/Stress Tc-99m 1 day Rest Isotope: Tc-99m Sestamibi. Dose: 10.2 Date: 04/23/2023 Injection Time: 0915 Stress Isotope: Tc-99m Sestamibi. Dose: 32 Date: 04/23/2023 Injection Time: 1100 HR Resting HR Supine: 65 bpm Max Heart Rate (APMHR): 162.996494 bpm Resting HR [place] bpm Target HR (85% APMHR): 137.065093 bpm Max HR Achieved: 128 bpm % of APMHR: 79.01 Recovery HR: 85 bpm HR response to stress: Normal HR response to stress BP Resting BP Supine: 138/70 mmHg Resting BP [place]/64 mmHg Max BP: 160/62 mmHg Recovery BP: 142/78 mmHg BP response to stress: Normal blood pressure response to stress. ECG Resting ECG: Sinus Rhythm, RBBB Ectopy: None Stress ECG: Sinus Rhythm, RBBB, Sinus Tachycardia ST Change: No significant ST segment changes noted Arrhythmia: None Recovery ECG: Sinus Rhythm, RBBB Recovery ST Change: No significant ST segment changes noted Recovery Arrhythmia: None Clinical Reason for Termination: Fatigue Stress Symptoms: General Fatigue Exercise duration: 9 min31 sec Highest Stage Reached: Stage 2: 2.5 mph at 12% grade. Exercise capacity: 10.13 METs Angina Score: None Donnelly Treadmill Score: 9.5 Rate Pressure Product: 13397 Stress ECG Conclusion 1. The resting electrocardiogram showed an incomplete right bundle branch block 2. Patient underwent testing using a combination of low-level exercise and pharmacologic stress with regadenoson 3. Peak heart rate achieved was 79% of predicted for age 4. Workload was 10.13 METS 5. The electrocardiographic portion of the test was nondiagnostic. See MPI report [place]ly Treadmill Score is 9.5 which is Low risk. Stress Test Summary STAGE Time (mins) Speed (mph) Grade (%) HR BP SpO2 SYMPTOMS METS Supine 65 138/70 98 Standing 70 110/64 97 1 3 1.7 10 97 132/76 96 4.5 2 6 2.5 12 110 152/70 95 Fatigue 7 1 min post Lexiscan injection 111 160/62 98 3 min post Lexiscan injection 95 158/68 95 6 min post Lexiscan injection 85 142/78 98 Patient with general fatigue that limited ability to obtain THR. Treadmill stopped at 0800 and lexisc an given at 0830. Low level exercise was continued for 1 minute post injection at 1.6MPH and 0% grade . Patient experienced no symptoms in regards to lexiscan. MPI Conclusion Myocardial perfusion is normal. There is no evidence of ischemia or prior infarction EF is 58% with normal wall motion Radiologist Interpretation Radiologist Interpretation by: Sy Oliver MD Interpretation Date/Time: 04/25/2023 15:49:08
[2023-04-23] MEDS: Regadenoson 0.4 MG/5 ML SYR IVP (11:07)
== END 2023-04-23 01:17 ==
LOC: DI 00:57
PROVIDERS: PCP Family Medicine; Visit Provider Family Medicine
DX: R07.9 Chest pain, unspecified (principal)
CPT/HCPCS: 78452; 93016; 93018; 93017; J2785

== ENCOUNTER 2023-04-23 15:11 | Outpatient (REF) | payer MEDICARE, SELFPAY ==
[2023-04-23 17:26] LABS: Abs Immature Grans 0.06 10^3/uL (0.0-0.06); Absolute Basophil Count 0.07 10^3/uL (0.0-0.2); Absolute Eosinophil Count 1.21 10^3/uL (0.0-0.7); Absolute Lymphocyte Count 2.23 10^3/uL (1.2-3.4); Basophils % 0.6; Eosinophils % 9.7; HCT 37.1 % (40.0-50.0); HGB 12.1 g/dL (13.5-17.5); Immature Grans % 0.5; Lymphocytes % 17.9; MCH 31.1 pg (27.0-33.0); MCHC 32.6 % (32.0-36.0); MCV 95 fL (80-95); Monocytes % 5.9; Neutrophils % 65.4; Platelet Count 216 10^3/uL (130-400); RBC 3.89 10^6/uL (4.36-5.78); RDW 13.4 % (11.8-14.1); WBC 12.47 10^3/uL (4.4-10.8)
[2023-04-23 17:34] LABS: Absolute Monocyte Count 0.74 10^3/uL (0.1-0.8); Absolute Neutrophil Count 8.16 10^3/uL (1.2-6.7)
[2023-04-23 18:08] LABS: ALT 39 U/L (16-63); AST 37 U/L (15-37); Albumin 3.6 g/dL (3.4-5.0); Alkaline Phosphatase 174 U/L (46-116); Anion Gap 7.9 mmol/L (3-11); BUN 20 mg/dL (7-18); Bilirubin, Total 0.4 mg/dL (0.2-1.0); CO2 28.1 mmol/L (21.0-32.0); CREATININE 0.9 mg/dL (0.70-1.30); Calcium 8.9 mg/dL (8.5-10.1); Chloride 103 mmol/L (98-107); Ferritin 61 ng/mL (26-388); Glucose 161 mg/dL (74-106); Potassium 4.4 mmol/L (3.5-5.1); Sodium 139 mmol/L (136-145); Total Protein 6.3 g/dL (6.4-8.2); Vitamin B12 522 pg/mL (193-986)
[2023-04-23 18:09] LABS: Folate > 20.0 ng/mL (8.6-20.0)
== END 2023-04-23 15:12 | disposition home or self-care (01) ==
LOC: NCHCN 15:11
PROVIDERS: PCP Family Medicine; Visit Provider Family Medicine
DX: D64.9 Anemia, unspecified (principal); D72.829 Elevated white blood cell count, unspecified; E53.8 Deficiency of other specified B group vitamins; Z79.899 Other long term (current) drug therapy
CPT/HCPCS: 80053; 82607; 82728; 82746; 85025

== ENCOUNTER 2023-04-30 16:05 | Outpatient (REF) | payer MEDICARE, SELFPAY ==
[2023-04-30 17:27] LABS: Abs Immature Grans 0.03 10^3/uL (0.0-0.06); Absolute Basophil Count 0.05 10^3/uL (0.0-0.2); Absolute Eosinophil Count 1.15 10^3/uL (0.0-0.7); Absolute Lymphocyte Count 1.56 10^3/uL (1.2-3.4); Absolute Monocyte Count 0.57 10^3/uL (0.1-0.8); Basophils % 0.7; Eosinophils % 15.4; HCT 37.9 % (40.0-50.0); HGB 12.2 g/dL (13.5-17.5); Immature Grans % 0.4; Lymphocytes % 20.9; MCH 31.1 pg (27.0-33.0); MCHC 32.2 % (32.0-36.0); MCV 97 fL (80-95); MPV 12.3 fL (8.0-11.0); Monocytes % 7.6; Platelet Count 215 10^3/uL (130-400); RBC 3.92 10^6/uL (4.36-5.78); RDW 13.7 % (11.8-14.1); RDW-SD 48.6 fL; WBC 7.46 10^3/uL (4.4-10.8)
[2023-04-30 17:43] LABS: ALT 40 U/L (16-63); AST 28 U/L (15-37); Albumin 3.6 g/dL (3.4-5.0); Alkaline Phosphatase 180 U/L (46-116); Anion Gap 7.6 mmol/L (3-11); BUN 19 mg/dL (7-18); Bilirubin, Total 0.3 mg/dL (0.2-1.0); CO2 28.4 mmol/L (21.0-32.0); Calcium 8.6 mg/dL (8.5-10.1); Chloride 103 mmol/L (98-107); Estimated GFR 87.24 (mL/min/1.73m2); Glucose 158 mg/dL (74-106); Magnesium 1.9 mg/dL (1.8-2.4); Potassium 4.6 mmol/L (3.5-5.1); Sodium 139 mmol/L (136-145); Total Protein 6.2 g/dL (6.4-8.2); Triglyceride 65 mg/dL (<150)
[2023-04-30 17:52] LABS: C-Reactive Protein 0.66 mg/dL (0.0-0.3); PHOSPHORUS 3.4 mg/dL (2.6-4.7)
== END 2023-04-30 16:06 | disposition home or self-care (01) ==
LOC: NCHCN 16:05
PROVIDERS: PCP Family Medicine; Visit Provider Family Medicine
DX: E46 Unspecified protein-calorie malnutrition (principal); K91.2 Postsurgical malabsorption, not elsewhere classified
CPT/HCPCS: 80053; 83735; 84100; 84478; 85025; 86140

== ENCOUNTER 2023-05-07 13:50 | Outpatient (REF) | payer MEDICARE, SELFPAY ==
[2023-05-07 13:45] LABS: Abs Immature Grans 0.03 10^3/uL (0.0-0.06); Absolute Basophil Count 0.05 10^3/uL (0.0-0.2); Absolute Eosinophil Count 0.74 10^3/uL (0.0-0.7); Absolute Lymphocyte Count 1.67 10^3/uL (1.2-3.4); Absolute Monocyte Count 0.59 10^3/uL (0.1-0.8); Absolute Neutrophil Count 6.74 10^3/uL (1.2-6.7); Basophils % 0.5; Eosinophils % 7.5; HCT 38.4 % (40.0-50.0); HGB 12.7 g/dL (13.5-17.5); Immature Grans % 0.3; MCH 31.9 pg (27.0-33.0); MCHC 33.1 % (32.0-36.0); MCV 97 fL (80-95); MPV 12.4 fL (8.0-11.0); Neutrophils % 68.7; Platelet Count 240 10^3/uL (130-400); RBC 3.98 10^6/uL (4.36-5.78); RDW 13.3 % (11.8-14.1); RDW-SD 47.1 fL; WBC 9.82 10^3/uL (4.4-10.8)
[2023-05-07 14:08] LABS: ALT 35 U/L (16-63); AST 24 U/L (15-37); Albumin 3.9 g/dL (3.4-5.0); Alkaline Phosphatase 200 U/L (46-116); Anion Gap 7.7 mmol/L (3-11); BUN 24 mg/dL (7-18); Bilirubin, Total 0.4 mg/dL (0.2-1.0); C-Reactive Protein 0.41 mg/dL (0.0-0.3); CO2 30.3 mmol/L (21.0-32.0); CREATININE 1.1 mg/dL (0.70-1.30); Chloride 104 mmol/L (98-107); Estimated GFR 77.81 (mL/min/1.73m2); Glucose 118 mg/dL (74-106); PHOSPHORUS 3.9 mg/dL (2.6-4.7); Potassium 5.3 mmol/L (3.5-5.1); Sodium 142 mmol/L (136-145); Total Protein 6.6 g/dL (6.4-8.2)
[2023-05-07 14:19] LABS: Triglyceride 77 mg/dL (<150)
[2023-05-08 09:41] LABS: Prealbumin 29 mg/dL (20-40)
== END 2023-05-07 13:51 | disposition home or self-care (01) ==
LOC: NCHCN 13:50
PROVIDERS: PCP Family Medicine; Visit Provider Family Medicine
DX: E46 Unspecified protein-calorie malnutrition (principal); K91.2 Postsurgical malabsorption, not elsewhere classified; R74.8 Abnormal levels of other serum enzymes; R79.82 Elevated C-reactive protein (CRP)
CPT/HCPCS: 80053; 83735; 84100; 84134; 84478; 85025; 86140

== ENCOUNTER 2023-05-14 13:02 | Outpatient (REF) | payer MEDICARE, SELFPAY ==
[2023-05-14 11:11] LABS: Abs Immature Grans 0.03 10^3/uL (0.0-0.06); Absolute Basophil Count 0.07 10^3/uL (0.0-0.2); Absolute Eosinophil Count 0.38 10^3/uL (0.0-0.7); Absolute Monocyte Count 0.66 10^3/uL (0.1-0.8); Absolute Neutrophil Count 6.05 10^3/uL (1.2-6.7); Basophils % 0.8; Eosinophils % 4.2; HCT 38.9 % (40.0-50.0); Immature Grans % 0.3; Lymphocytes % 20.9; MCH 31.8 pg (27.0-33.0); MCHC 33.4 % (32.0-36.0); MCV 95 fL (80-95); MPV 12.4 fL (8.0-11.0); Monocytes % 7.3; Neutrophils % 66.5; Platelet Count 227 10^3/uL (130-400); RBC 4.09 10^6/uL (4.36-5.78); RDW 13.2 % (11.8-14.1); RDW-SD 46.6 fL; WBC 9.09 10^3/uL (4.4-10.8)
[2023-05-14 11:27] LABS: ALT 34 U/L (16-63); AST 28 U/L (15-37); Albumin 3.8 g/dL (3.4-5.0); Alkaline Phosphatase 188 U/L (46-116); BUN 22 mg/dL (7-18); Bilirubin, Total 0.4 mg/dL (0.2-1.0); CREATININE 0.9 mg/dL (0.70-1.30); Chloride 103 mmol/L (98-107); Glucose 108 mg/dL (74-106); Potassium 4.9 mmol/L (3.5-5.1); Sodium 140 mmol/L (136-145); Total Protein 6.8 g/dL (6.4-8.2); Triglyceride 47 mg/dL (<150)
[2023-05-14 11:39] LABS: PHOSPHORUS 3.6 mg/dL (2.6-4.7)
== END 2023-05-14 13:03 | disposition home or self-care (01) ==
LOC: LBN 13:02
PROVIDERS: PCP Family Medicine; Visit Provider Family Medicine
DX: E46 Unspecified protein-calorie malnutrition (principal); K91.2 Postsurgical malabsorption, not elsewhere classified
CPT/HCPCS: 80053; 83735; 84100; 84478; 85025

== ENCOUNTER 2023-05-21 18:25 | Outpatient (REF) | payer MEDICARE, SELFPAY ==
[2023-05-21 18:57] LABS: Abs Immature Grans 0.02 10^3/uL (0.0-0.06); Absolute Basophil Count 0.07 10^3/uL (0.0-0.2); Absolute Eosinophil Count 0.48 10^3/uL (0.0-0.7); Absolute Lymphocyte Count 2.63 10^3/uL (1.2-3.4); Absolute Neutrophil Count 4.95 10^3/uL (1.2-6.7); Basophils % 0.8; Eosinophils % 5.4; HCT 38.9 % (40.0-50.0); HGB 12.7 g/dL (13.5-17.5); Immature Grans % 0.2; Lymphocytes % 29.7; MCH 31.3 pg (27.0-33.0); MCHC 32.6 % (32.0-36.0); MCV 96 fL (80-95); MPV 12.5 fL (8.0-11.0); Monocytes % 7.9; Platelet Count 223 10^3/uL (130-400); RBC 4.06 10^6/uL (4.36-5.78); RDW 13.4 % (11.8-14.1); RDW-SD 47.5 fL; WBC 8.85 10^3/uL (4.4-10.8)
[2023-05-21 19:10] LABS: ALT 46 U/L (16-63); AST 35 U/L (15-37); Albumin 3.9 g/dL (3.4-5.0); Alkaline Phosphatase 199 U/L (46-116); Anion Gap 6.9 mmol/L (3-11); BUN 22 mg/dL (7-18); Bilirubin, Total 0.4 mg/dL (0.2-1.0); CO2 30.1 mmol/L (21.0-32.0); CREATININE 1.1 mg/dL (0.70-1.30); Calcium 8.9 mg/dL (8.5-10.1); Chloride 102 mmol/L (98-107); Estimated GFR 77.33 (mL/min/1.73m2); Glucose 93 mg/dL (74-106); PHOSPHORUS 3.9 mg/dL (2.6-4.7); Potassium 4.6 mmol/L (3.5-5.1); Sodium 139 mmol/L (136-145); Total Protein 6.6 g/dL (6.4-8.2)
[2023-05-21 19:28] LABS: Triglyceride 85 mg/dL (<150)
== END 2023-05-21 18:26 | disposition home or self-care (01) ==
LOC: LBN 18:25
PROVIDERS: PCP Family Medicine; Visit Provider Internal Medicine
DX: E46 Unspecified protein-calorie malnutrition (principal); K91.2 Postsurgical malabsorption, not elsewhere classified
CPT/HCPCS: 80053; 83735; 84100; 84478; 85025

== ENCOUNTER 2023-05-28 16:08 | Outpatient (REF) | payer MEDICARE, SELFPAY ==
[2023-05-28 18:10] LABS: ALT 42 U/L (16-63); AST 33 U/L (15-37); Albumin 4.2 g/dL (3.4-5.0); Alkaline Phosphatase 186 U/L (46-116); Anion Gap 7.1 mmol/L (3-11); BUN 20 mg/dL (7-18); Bilirubin, Total 0.4 mg/dL (0.2-1.0); C-Reactive Protein 0.16 mg/dL (0.0-0.3); CO2 30.9 mmol/L (21.0-32.0); CREATININE 1.1 mg/dL (0.70-1.30); Calcium 9.4 mg/dL (8.5-10.1); Chloride 102 mmol/L (98-107); Estimated GFR 77.33 (mL/min/1.73m2); Glucose 71 mg/dL (74-106); PHOSPHORUS 3.6 mg/dL (2.6-4.7); Potassium 4.4 mmol/L (3.5-5.1); Sodium 140 mmol/L (136-145)
[2023-05-28 18:21] LABS: Triglyceride 81 mg/dL (<150)
[2023-05-28 21:05] LABS: HCT 41.6 % (40.0-50.0); HGB 13.6 g/dL (13.5-17.5); MCH 31.3 pg (27.0-33.0); MCHC 32.7 % (32.0-36.0); MCV 96 fL (80-95); MPV 12.8 fL (8.0-11.0); Platelet Count 203 10^3/uL (130-400); RBC 4.35 10^6/uL (4.36-5.78); RDW 13.2 % (11.8-14.1); RDW-SD 47.1 fL; WBC 9.01 10^3/uL (4.4-10.8)
[2023-05-30 09:33] LABS: Prealbumin 35 mg/dL (20-40)
== END 2023-05-28 16:09 | disposition home or self-care (01) ==
LOC: NCHCN 16:08
PROVIDERS: PCP Family Medicine; Visit Provider Family Medicine
DX: E46 Unspecified protein-calorie malnutrition (principal); K50.90 Crohn's disease, unspecified, without complications; R63.4 Abnormal weight loss; R79.89 Other specified abnormal findings of blood chemistry; D64.9 Anemia, unspecified; E53.8 Deficiency of other specified B group vitamins
CPT/HCPCS: 80053; 85027; 83735; 84100; 84134; 84478; 86140

== ENCOUNTER 2023-06-04 15:39 | Outpatient (REF) | payer MEDICARE, SELFPAY ==
[2023-06-04 16:43] LABS: Abs Immature Grans 0.03 10^3/uL (0.0-0.06); Absolute Basophil Count 0.06 10^3/uL (0.0-0.2); Absolute Eosinophil Count 0.32 10^3/uL (0.0-0.7); Absolute Lymphocyte Count 2.08 10^3/uL (1.2-3.4); Absolute Monocyte Count 0.79 10^3/uL (0.1-0.8); Absolute Neutrophil Count 7.52 10^3/uL (1.2-6.7); Basophils % 0.6; HCT 38.6 % (40.0-50.0); HGB 12.8 g/dL (13.5-17.5); Immature Grans % 0.3; Lymphocytes % 19.3; MCH 31.4 pg (27.0-33.0); MCHC 33.2 % (32.0-36.0); MCV 95 fL (80-95); Monocytes % 7.3; Neutrophils % 69.5; Platelet Count 211 10^3/uL (130-400); RBC 4.07 10^6/uL (4.36-5.78); RDW 13.4 % (11.8-14.1); RDW-SD 47.2 fL
[2023-06-04 17:25] LABS: ALT 44 U/L (16-63); AST 46 U/L (15-37); Albumin 3.9 g/dL (3.4-5.0); Alkaline Phosphatase 191 U/L (46-116); BUN 24 mg/dL (7-18); Bilirubin, Total 0.4 mg/dL (0.2-1.0); CREATININE 1.1 mg/dL (0.70-1.30); Calcium 8.9 mg/dL (8.5-10.1); Chloride 100 mmol/L (98-107); Estimated GFR 77.33 (mL/min/1.73m2); Glucose 75 mg/dL (74-106); Potassium 4.5 mmol/L (3.5-5.1); Sodium 139 mmol/L (136-145); Total Protein 6.6 g/dL (6.4-8.2); Triglyceride 81 mg/dL (<150)
[2023-06-04 17:46] LABS: C-Reactive Protein 0.51 mg/dL (0.0-0.3)
[2023-06-06 10:58] LABS: Prealbumin 29 mg/dL (20-40)
== END 2023-06-04 15:40 | disposition home or self-care (01) ==
LOC: LBN 15:39
PROVIDERS: PCP Family Medicine; Visit Provider Family Medicine
DX: E46 Unspecified protein-calorie malnutrition (principal); K91.2 Postsurgical malabsorption, not elsewhere classified
CPT/HCPCS: 80053; 83735; 84100; 84134; 84478; 85025; 86140

== ENCOUNTER 2023-06-11 18:42 | Outpatient (REF) | payer MEDICARE, SELFPAY ==
[2023-06-11 15:43] LABS: Abs Immature Grans 0.03 10^3/uL (0.0-0.06); Absolute Basophil Count 0.06 10^3/uL (0.0-0.2); Absolute Lymphocyte Count 2.28 10^3/uL (1.2-3.4); Absolute Monocyte Count 0.64 10^3/uL (0.1-0.8); Absolute Neutrophil Count 6.15 10^3/uL (1.2-6.7); Basophils % 0.6; Eosinophils % 2.1; HCT 40.5 % (40.0-50.0); HGB 13.4 g/dL (13.5-17.5); Immature Grans % 0.3; Lymphocytes % 24.4; MCH 31.8 pg (27.0-33.0); MCHC 33.1 % (32.0-36.0); MCV 96 fL (80-95); MPV 12.8 fL (8.0-11.0); Monocytes % 6.8; Neutrophils % 65.8; Platelet Count 231 10^3/uL (130-400); RBC 4.22 10^6/uL (4.36-5.78); RDW 13.5 % (11.8-14.1); RDW-SD 47.9 fL; WBC 9.36 10^3/uL (4.4-10.8)
[2023-06-11 16:10] LABS: ALT 45 U/L (16-63); AST 26 U/L (15-37); Alkaline Phosphatase 172 U/L (46-116); Anion Gap 7.1 mmol/L (3-11); BUN 21 mg/dL (7-18); Bilirubin, Total 0.4 mg/dL (0.2-1.0); CO2 28.9 mmol/L (21.0-32.0); Calcium 8.9 mg/dL (8.5-10.1); Chloride 103 mmol/L (98-107); Glucose 102 mg/dL (74-106); PHOSPHORUS 3.4 mg/dL (2.6-4.7); Potassium 4.6 mmol/L (3.5-5.1); Sodium 139 mmol/L (136-145); Total Protein 6.6 g/dL (6.4-8.2)
[2023-06-11 16:28] LABS: Triglyceride 48 mg/dL (<150)
== END 2023-06-11 18:43 | disposition home or self-care (01) ==
LOC: LBN 18:42
PROVIDERS: PCP Family Medicine; Visit Provider Family Medicine
DX: E46 Unspecified protein-calorie malnutrition (principal); K91.2 Postsurgical malabsorption, not elsewhere classified
CPT/HCPCS: 80053; 83735; 84100; 84478; 85025

== ENCOUNTER 2023-06-25 17:56 | Outpatient (REF) | payer MEDICARE, SELFPAY ==
[2023-06-25 13:01] LABS: Abs Immature Grans 0.05 10^3/uL (0.0-0.06); Absolute Basophil Count 0.04 10^3/uL (0.0-0.2); Absolute Eosinophil Count 0.15 10^3/uL (0.0-0.7); Absolute Lymphocyte Count 2.14 10^3/uL (1.2-3.4); Absolute Monocyte Count 0.68 10^3/uL (0.1-0.8); Absolute Neutrophil Count 5.81 10^3/uL (1.2-6.7); Basophils % 0.5; Eosinophils % 1.7; HCT 40.8 % (40.0-50.0); HGB 13.3 g/dL (13.5-17.5); Immature Grans % 0.6; Lymphocytes % 24.1; MCH 30.9 pg (27.0-33.0); MCHC 32.6 % (32.0-36.0); MCV 95 fL (80-95); MPV 12.6 fL (8.0-11.0); Monocytes % 7.7; Neutrophils % 65.4; Platelet Count 204 10^3/uL (130-400); RDW 13.2 % (11.8-14.1); RDW-SD 45.8 fL; WBC 8.87 10^3/uL (4.4-10.8)
[2023-06-25 13:21] LABS: ALT 52 U/L (16-63); AST 31 U/L (15-37); Albumin 3.8 g/dL (3.4-5.0); Alkaline Phosphatase 197 U/L (46-116); Anion Gap 7.2 mmol/L (3-11); BUN 22 mg/dL (7-18); Bilirubin, Total 0.5 mg/dL (0.2-1.0); C-Reactive Protein 1.29 mg/dL (0.0-0.3); CO2 27.8 mmol/L (21.0-32.0); CREATININE 1.1 mg/dL (0.70-1.30); Chloride 102 mmol/L (98-107); Estimated GFR 77.33 (mL/min/1.73m2); Glucose 106 mg/dL (74-106); PHOSPHORUS 3.6 mg/dL (2.6-4.7); Sodium 137 mmol/L (136-145); Total Protein 6.7 g/dL (6.4-8.2)
[2023-06-25 13:34] LABS: Triglyceride 51 mg/dL (<150)
[2023-06-26 09:45] LABS: Prealbumin 29 mg/dL (20-40)
== END 2023-06-25 17:57 | disposition home or self-care (01) ==
LOC: LBN 17:56
PROVIDERS: PCP Family Medicine; Visit Provider Family Medicine
DX: E46 Unspecified protein-calorie malnutrition (principal); K91.2 Postsurgical malabsorption, not elsewhere classified; D64.9 Anemia, unspecified; R79.82 Elevated C-reactive protein (CRP); R79.89 Other specified abnormal findings of blood chemistry; R63.4 Abnormal weight loss
CPT/HCPCS: 80053; 83735; 84100; 84134; 84478; 85025; 86140

== ENCOUNTER 2023-07-02 11:42 | Outpatient (REF) | payer MEDICARE, SELFPAY ==
[2023-07-02 13:16] LABS: HGB 13.8 g/dL (13.5-17.5); MCH 31.9 pg (27.0-33.0); MCHC 33.7 % (32.0-36.0); MCV 95 fL (80-95); MPV 12.7 fL (8.0-11.0); Platelet Count 224 10^3/uL (130-400); RBC 4.33 10^6/uL (4.36-5.78); RDW-SD 45.2 fL; WBC 9.25 10^3/uL (4.4-10.8)
[2023-07-02 13:31] LABS: ALT 68 U/L (16-63); AST 41 U/L (15-37); Albumin 4.1 g/dL (3.4-5.0); Alkaline Phosphatase 215 U/L (46-116); Anion Gap 7.7 mmol/L (3-11); BUN 23 mg/dL (7-18); Bilirubin, Total 0.5 mg/dL (0.2-1.0); CO2 28.3 mmol/L (21.0-32.0); CREATININE 1.1 mg/dL (0.70-1.30); Calcium 9.1 mg/dL (8.5-10.1); Chloride 98 mmol/L (98-107); Estimated GFR 77.33 (mL/min/1.73m2); Glucose 89 mg/dL (74-106); Potassium 4.8 mmol/L (3.5-5.1); Sodium 134 mmol/L (136-145); Triglyceride 51 mg/dL (<150)
[2023-07-02 13:46] LABS: C-Reactive Protein 0.26 mg/dL (0.0-0.3); PHOSPHORUS 3.6 mg/dL (2.6-4.7)
[2023-07-04 17:41] LABS: PSA, Ultrasensitive 2.1 ng/mL (<= 3.5)
[2023-07-07 17:48] LABS: Testosterone, Total 539 ng/dL (240-950)
== END 2023-07-02 11:43 | disposition home or self-care (01) ==
LOC: NCHCN 11:42
PROVIDERS: Nurse Practitioner Family; PCP Family Medicine; Visit Provider Family Medicine
DX: C61 Malignant neoplasm of prostate (principal); E46 Unspecified protein-calorie malnutrition; R63.4 Abnormal weight loss; R79.82 Elevated C-reactive protein (CRP); R79.89 Other specified abnormal findings of blood chemistry
CPT/HCPCS: 80053; 84153; 84403; 85027; 83735; 84100; 84478; 86140

== ENCOUNTER 2023-07-16 15:25 | Outpatient (REF) | payer MEDICARE, SELFPAY ==
[2023-07-16 15:54] LABS: Abs Immature Grans 0.03 10^3/uL (0.0-0.06); Absolute Basophil Count 0.06 10^3/uL (0.0-0.2); Absolute Eosinophil Count 0.21 10^3/uL (0.0-0.7); Absolute Lymphocyte Count 2.64 10^3/uL (1.2-3.4); Absolute Monocyte Count 0.87 10^3/uL (0.1-0.8); Basophils % 0.6; Eosinophils % 2.2; HCT 37.5 % (40.0-50.0); HGB 12.6 g/dL (13.5-17.5); Immature Grans % 0.3; Lymphocytes % 27.2; MCHC 33.6 % (32.0-36.0); MCV 92 fL (80-95); MPV 12.6 fL (8.0-11.0); Neutrophils % 60.7; Platelet Count 224 10^3/uL (130-400); RBC 4.06 10^6/uL (4.36-5.78); RDW-SD 44.4 fL; WBC 9.71 10^3/uL (4.4-10.8)
[2023-07-16 16:14] LABS: ALT 63 U/L (16-63); AST 42 U/L (15-37); Albumin 3.6 g/dL (3.4-5.0); Alkaline Phosphatase 204 U/L (46-116); Anion Gap 4.6 mmol/L (3-11); BUN 22 mg/dL (7-18); Bilirubin, Total 0.5 mg/dL (0.2-1.0); CO2 31.4 mmol/L (21.0-32.0); CREATININE 1.1 mg/dL (0.70-1.30); Calcium 8.9 mg/dL (8.5-10.1); Chloride 99 mmol/L (98-107); Estimated GFR 77.33 (mL/min/1.73m2); Glucose 66 mg/dL (74-106); Magnesium 1.9 mg/dL (1.8-2.4); Potassium 4.1 mmol/L (3.5-5.1); Sodium 135 mmol/L (136-145); Total Protein 6.3 g/dL (6.4-8.2); Triglyceride 95 mg/dL (<150)
[2023-07-16 17:30] LABS: PHOSPHORUS 4.1 mg/dL (2.6-4.7)
== END 2023-07-16 15:26 | disposition home or self-care (01) ==
LOC: NCHCN 15:25
PROVIDERS: PCP Family Medicine; Visit Provider Family Medicine
DX: E46 Unspecified protein-calorie malnutrition (principal); K50.90 Crohn's disease, unspecified, without complications; K91.2 Postsurgical malabsorption, not elsewhere classified; R63.4 Abnormal weight loss; R79.89 Other specified abnormal findings of blood chemistry
CPT/HCPCS: 80053; 83735; 84100; 84478; 85025

== ENCOUNTER 2023-07-26 09:28 | Emergency (ER) | payer MEDICARE, SELFPAY ==
[2023-07-26] VITALS (44 sets, daily range): BP systolic 114–143; BP diastolic 52–78; PULSE 74–89; RESP 13–27; TEMP 36.7; O2SAT 95–100
--- NOTE | 2023-07-26 09:30 | RT.EKG_ITS ---
APPROVED REPORT Exam: Resting ECG Reason for Exam: SOB Patient Location: E HR:83 bpm ECG Measurements Heart Rate 83 AXIS WV 151 P 56 QRSd 89 QRS 35 QT 357 T 63 QTc 421 Conclusion Sinus rhythm...V-rate 60- 99 Atrial premature complex...SV complex w/ short R-R interval Hyperacute T waves and j-point elevation anterior leads also present on prior EKG 04/03/[address] elevation 2, 3, aVF not meeting STEMI criteria ST elevation, consider inferior injury...ST >0.08mV, II III aVF
--- NOTE | 2023-07-26 09:45 | DI.RAD_ITS ---
Exam(s) XR PORTABLE CHEST AP EXAM: XR PORTABLE CHEST AP CLINICAL HISTORY: chest pain. TECHNIQUE: 2D digital imaging was performed. COMPARISON: CR XR CHEST 2V PA LATERAL from 04/03/2023 FINDINGS: Single AP portable view. Distal tip of the right-sided Port-A-Cath is in the lower SVC, unchanged. Heart size is upper normal. The mediastinum is not widened. Lungs are clear. No infiltrates nor obvious pleural effusions. No ominous lung nodules noted. No pneumothorax. No osseous findings IMPRESSION: No acute pulmonary findings on this single AP portable view of the chest. Port-A-Cath remains in good position. DATA REPOSITORY: RADIATION DOSE DELIVERED:
--- NOTE | 2023-07-26 09:56 | ED.GENADUL_ITS ---
Discharge Plan Disposition Patient Disposition: Home Condition: Good Discharge Details Clinical Impression: Pericarditis Primary Care Provider: Natty Mckinney V ED Provider: Nicole Cheney Home Meds and New Rx's Prescriptions: New colchicine (gout) 0.6 mg capsule 0.6 mg PO BID Qty: 28 0RF omeprazole 20 mg capsule,delayed release(DR/EC) 20 mg PO BID Qty: 28 0RF ibuprofen 600 mg tablet 600 mg PO TID Qty: 42 0RF No Action ondansetron HCl [Zofran] 4 mg Tablet 4 mg PO Q6H PRN hydrocodone-acetaminophen 10-325 mg Tablet 2 tab PO Q8H PRN diphenoxylate-atropine [Lomotil] 2.5-0.025 mg tablet 4 tab PO TID Centrum Men 8 mg iron- 200 mcg-600 mcg tablet 1 tab PO DAILY ferrous sulfate 325 mg (65 mg iron) tablet 325 mg PO DAILY cyanocobalamin (vitamin B-12) 1,000 mcg/mL kit 1,000 mcg subcut .[id number] methadone [Dolophine] 10 mg tablet 20 mg PO HS Patient Comments: Pt. states he takes this medication 0900pm 0200am 0400am Intralipid 20 % Emulsion 50 g IVPB DAILY Qty: 0 0RF nicotine [Nicoderm CQ] 14 mg/24 hr Patch 24 Hour 1 patch TRANSDERMAL DAILY diclofenac sodium [Voltaren] 1 % Gel 2 - 4 g TOPICAL QID PRN (Reason: Hand pain) naloxone [Narcan] 4 mg/actuation Point,Non-Aerosol 1 spray INTRANASAL Q3M Discharge Instructions Instructions: Acute Pericarditis (ED) Additional Instructions: Take ibuprofen 3 times a day. Take colchicine twice a day. Take omeprazole twice a day. Call your primary care doctor today to schedule an appointment to follow up on your visit today. They will need to decide how long you will continue these medications. Return to the emergency department for new or worsening symptoms including fevers, chills, new/different/worse chest pain, difficulty breathing, or if you have any other concerns. Referrals: Natty Mckinney MD [Primary Care Provider] - Medical Decision Making 58yo M with Crohn's/short gut on TPN presenting for acute sharp severe substernal chest pain onset 0400 this morning. Constant pain, pleuritic, worse with laying flat and improved with sitting up. Broad differential, most concerning including acute cornary syndrome, pulmonary embolism; description of symptoms consistent with pericarditis (patient does report recent illness consistnet with viral URI within past two weeks). Intial EKG sinus rhythm, j point elevation and hyperacute T waves concerning for acute AR however these are also present on prior EKG from march of 2023. Also as slight inferior ST elevations not meeting STEMI criteria. Given 325 of aspirin. CXR with no pneumonia or pneumothorax on my view, agree with radiology read below. Labs reviewed as below, CBC with mild leukocytosis (12.9) and anemia (Hg 13.4, baseline on [facility] record review). CMP reassuring with no significant abnorma lities (slightly elevated LFTs unlikely related to symptoms today, pt with no RUQ tenderness, advised PCP followup). ESR normal, CRP somewhat elevated. Dimer elevated; CTA ordered and independently review, no large PE on my view, agree with radiology below (small pericardial effusion). POCUS with small/trace pericardial effusion. Troponin negative x 2. Repeat EKG with no dynamic changes. Overall consistent with pericarditis; will treat with NSAIDs and colchine, PPI for gastric protection. Instructed to followup closely with PCP. Discharged home; discharge instructions including return precautions were reviewed with patient who verbalized understanding. All questions were answered and they are in full agreement with the plan. Imaging Data Radiologic Study: Imaging: X-Ray Radiologist's impression: IMPRESSION: No acute pulmonary findings on this single AP portable view of the chest. Port-A-Cath remains in good position Radiologic Study #2: Imaging: CT Scan Radiologist's impression: IMPRESSION: 1. No evidence of acute pulmonary emboli.? No evidence of pulmonary infarction.No pleural effusions.? No ominous pulmonary nodules.? Mild increased markings in both lung bases posterior basal segments of both lower lobes. 2. There is a small pericardial effusion anteriorly with maximum thickness 4 mm. 3. No evidence of aortic dissection. HPI General Mode of arrival: ambulatory . Date/Time Provider Initiated Documentation: 07/26/23 09:34 . Limitations to Documentation: no limitations . Information obtained by: patient . HPI Narrative: 58yo M with Crohn's/short gut on TPN presenting for acute sharp severe substernal chest pain onset 0400 this morning. Pain is constant, worse with inspiration, radiates into his neck. Worse with laying flat, somewhat improved with sitting up. Some shortness of breath related to pain; he is reluctant to take a deep breath. Had similar symptoms in the past in March which were ultimately attributed to increase in his TPN. No prior cardiac history; father from [place] in his 60's. He is otherwise in his usual state of health with no fevers, chills, rash, nausea, vomiting, palpitations, lightheadedness,syncope, numbness, tingling, weakness, back pain, LE edema, or other concerns. Related Data Home Medications Medication Instructions Recorded Confirmed diphenoxylate-atropine 2.5 4 tab PO TID 12/08/20 04/03/23 mg-0.025 mg tablet (Lomotil) diclofenac sodium 1 % topical gel 2 - 4 g topical QID PRN Hand pain 02/07/21 04/03/23 (Voltaren) naloxone 4 mg/actuation nasal 1 spray intranasal Q3M 02/07/21 04/03/23 spray (Narcan) nicotine 14 mg/24 hr daily 1 patch transdermal DAILY 02/07/21 04/03/23 transdermal patch (Nicoderm CQ) hydrocodone 10 mg-acetaminophen 2 tab PO Q8H PRN 03/23/21 04/03/23 325 mg tablet ondansetron HCl 4 mg tablet 4 mg PO Q6H PRN 03/23/21 04/03/23 (Zofran) cyanocobalamin (vitamin B-12) 1,000 mcg subcut .[id number] 10/09/22 04/03/23 1,000 mcg/mL injection kit ferrous sulfate 325 mg (65 mg 325 mg PO DAILY 10/09/22 04/03/23 iron) tablet multivit,Ca,min-iron 8 mg-folic 1 tab PO DAILY 10/09/22 04/03/23 acid 200 mcg-lycopene 600 mcg tablet (Centrum Men) methadone 10 mg tablet (Dolophine) 20 mg PO HS 10/23/22 04/03/23 fat emulsion 20 % intravenous 50 g IVPB DAILY #0 mL 03/28/23 04/03/23 (Intralipid) colchicine (gout) 0.6 mg capsule 0.6 mg PO BID #28 caps 07/26/23 ibuprofen 600 mg tablet 600 mg PO TID #42 tabs 07/26/23 omeprazole 20 mg capsule,delayed 20 mg PO BID #28 caps 07/26/23 release Previous Rx's Medication Instructions Recorded fat emulsion 20 % intravenous 50 g IVPB DAILY #0 mL 03/28/23 (Intralipid) colchicine (gout) 0.6 mg capsule 0.6 mg PO BID #28 caps 07/26/23 ibuprofen 600 mg tablet 600 mg PO TID #42 tabs 07/26/23 omeprazole 20 mg capsule,delayed 20 mg PO BID #28 caps 07/26/23 release Allergies Allergy/AdvReac Type Severity Reaction Status Date / Time No Known Allergies Allergy Verified 04/03/23 10:05 General Stated Complaint: Chest Pain GENET: 3 Review of Systems Narrative: see HPI PFSH All Active Problems (Updated 07/26/23 @ 14:16 by Nicole Cheney MD) Pericarditis (Acute) Chronic prescription opiate use (Chronic) Short gut syndrome (Chronic) Malnutrition (Acute) Internal derangement of right knee (Acute) Osteoarthritis of right knee (Acute) Vitamin B12 deficiency (Acute) Fatigue (Acute) Dyspnea on exertion (Acute) Depression (Chronic) Raynaud's disease (Acute) Postprandial vomiting (Acute) Smoker (Acute) Abdominal pain (Acute) Vision changes (Acute) Sinus pain (Acute) Joint pain (Acute) Syncope (Chronic) Ileostomy status (Chronic) Crohn's disease (Chronic) History of total right knee replacement (Acute 02/09/21) Arthrofibrosis of total knee arthroplasty (Acute) RIGHT S/P Manipulation: 04/20/2021 Pain in elbow joint (Acute) Ulnar abutment syndrome of both wrists (Acute) Degenerative arthritis of carpometacarpal joint of thumb (Acute) Disease of gallbladder, unspecified (Acute) Elevated liver function tests (Acute) Methadone use (Acute) Unintended weight loss (Chronic) Liver mass (Acute) Medical History (Updated 07/26/23 @ 14:16 by Nicole Cheney MD) Anemia Atrial enlargement, left Bilateral thumb pain Breast lump Complaint of pain of toe Dyspnea Elevated PSA Encounter for therapeutic drug level monitoring Gallstones Hematuria Hip pain History of pneumonia Infected cyst of skin tx with abx Neck pain Other complications following infusion, transfusion and therapeutic injection, subsequent encounter Other postprocedural complications and disorders of genitourinary system post procedure testicular pain Pain of knee joint on movement Paresthesia Pelvic pain Preoperative examination Preventative health care Prostate cancer Pulmonary nodule Radiculopathy affecting upper extremity RBBB Right knee pain RUQ pain Situational depression Tongue lesion Surgical History (Updated 03/26/23 @ 18:12 by Shantell Mccoy NP) Cataract extraction status History of creation of ostomy had in situ since 1988 Hx of total knee arthroplasty Social History Smoking/Tobacco Use Status: Current every day Tobacco Type: cigarettes Tobacco: How many years used: 44 Smoking risk assessment performed?: Yes Alcohol Intake: never Drug use: Socially Substance use type: former substance user and marijuana Household members: none Housing: apartment current occupation: Disabled Current gender identity: male Do you feel safe at home: Yes Do you feel safe in your relationship?: Yes Additional Social history: lives alone Exam Narrative Exam Narrative: General: Alert, well appearing, well nourished, in no acute distress. Head: Normocephalic, atraumatic Neck: Trachea midline, Neck supple. ENT: MMM. No oropharygeal lesions or exudate. Cardiac: RRR, no murmurs appreciated Resp: No respiratory distress. CTAB. Chest: Right chest port dressing CDI, no erythema, nontender. Abd: Soft, non-distended, nontender : No suprapubic tenderness. No CVA tenderness. Extremities: No deformities. No peripheral edema. Neurologic: GCS 15. Moves all extremities freely against gravity Course Vital Signs Vital signs: Vital Signs Temperature 36.7 C 07/26/23 09:33 Pulse 88 07/26/23 09:33 Respiratory Rate 20 07/26/23 09:33 Blood Pressure 143/78 H 07/26/23 09:33 Pulse Oximetry 100 07/26/23 09:33 Temperature 36.7 C 07/26/23 09:33 Temperature Source Oral 07/26/23 09:33 Pulse 88 07/26/23 09:33 Respiratory Rate 20 07/26/23 09:33 Respiratory Effort Normal, Non-Labored, Short of Breath 07/26/23 09:38 Blood Pressure 143/78 H 07/26/23 09:33 Blood Pressure Position Supine 07/26/23 09:33 Pulse Oximetry 100 07/26/23 09:33 Oxygen Delivery Method Room Air 07/26/23 09:33 Oxygen Flow Rate 0 07/26/23 09:33 POCUS Exam (ED) Limited Cardiac Exam DATE OF EXAM: 07/26/23 TIME OF EXAM: 01:40 PROVIDER THAT PERFORMED THE STUDY: Nicole Cheney REASON FOR EXAM: Chest pain VISUALIZED STRUCTURES: Four Chambers VIEW OBTAINED: Apical 4-Chamber, Parasternal long-axis and Subxiphoid PERTINENT FINDINGS/IMPRESSION: Pericardial effusion (minimal anterior effusion, no circumferential effusion. somewhat limited exam 2/t patient ability to tolerate positioning) Exam complete
[2023-07-26] MEDS: Aspirin 81 MG CHEW 324 MG CH (10:01)
[2023-07-26 10:12] LABS: Basophils % 0.4; Eosinophils % 0.4; HCT 40.5 % (40.0-50.0); HGB 13.4 g/dL (13.5-17.5); Lymphocytes % 9.3; MCH 30.8 pg (27.0-33.0); MCHC 33.1 % (32.0-36.0); MCV 93 fL (80-95); MPV 11.9 fL (8.0-11.0); Monocytes % 8.6; Neutrophils % 80.8; Platelet Count 214 10^3/uL (130-400); RBC 4.35 10^6/uL (4.36-5.78); RDW 13.1 % (11.8-14.1); RDW-SD 44.9 fL; WBC 12.89 10^3/uL (4.4-10.8)
[2023-07-26 10:13] LABS: Abs Immature Grans 0.07 10^3/uL (0.0-0.06); Absolute Basophil Count 0.05 10^3/uL (0.0-0.2); Absolute Eosinophil Count 0.05 10^3/uL (0.0-0.7); Absolute Monocyte Count 1.11 10^3/uL (0.1-0.8); Immature Grans % 0.5
[2023-07-26 10:24] LABS: Absolute Neutrophil Count 10.42 10^3/uL (1.2-6.7)
[2023-07-26 10:43] LABS: ALT 71 U/L (16-63); AST 43 U/L (15-37); Albumin 3.6 g/dL (3.4-5.0); Alkaline Phosphatase 227 U/L (46-116); BUN 22 mg/dL (7-18); Chloride 100 mmol/L (98-107); Glucose 116 mg/dL (74-106); Potassium 4.2 mmol/L (3.5-5.1); Sodium 137 mmol/L (136-145); Total Protein 6.9 g/dL (6.4-8.2); Troponin I < 50 ng/L (<or=60)
--- NOTE | 2023-07-26 10:45 | DI.CT_ITS ---
Exam(s) CT CHEST PE CTA EXAM: CT CHEST PE CTA CLINICAL HISTORY: pleuritic chest pain, elevated dimer. TECHNIQUE: Imaging Protocol: CT angiography of the chest was performed using pulmonary embolus richard col. Multi planar reconstructions were performed. CONTRAST MATERIAL: Intravenous: Omnipaque 350 Contrast volume: 100 cc COMPARISON: CT,NM,TMT NM MPI REST STRESS GRP from 04/23/2023 CR XR PORTABLE CHEST AP from 07/26/2023 FINDINGS: CHEST: PULMONARY ARTERIES: There are no intraluminal filling defects to suggest acute pulmonary emboli. LUNGS: Mild increased markings noted in the dependent aspect of both lung bases but no prominent infi ltrates nor pleural effusions. No ominous pulmonary nodules. No pneumothorax. No focal findings in trachea and mainstem bronchi distal tip of the Port-A-Cath is in the upper right atrium.. MEDIASTINUM: There is no hilar nor mediastinal adenopathy. Visualized thyroid unremarkable. CARDIAC: Heart size is normal. There is a small pericardial effusion noted anteriorly with maximum t hickness of 4 mm.Caliber of the thoracic aorta is within normal limits. No evidence of aortic dissect ion. There is no significant shift of the interventricular septum. PARTIALLY VISUALIZED UPPERMOST ABDOMEN: No significant adrenal masses. No splenomegaly. OSSEOUS: No significant osseous lesions.No fractures. IMPRESSION: 1. No evidence of acute pulmonary emboli. No evidence of pulmonary infarction.No pleural effusions. No ominous pulmonary nodules. Mild increased markings in both lung bases posterior basal segments o f both lower lobes. 2. There is a small pericardial effusion anteriorly with maximum thickness 4 mm. 3. No evidence of aortic dissection. RADIATION DOSE DELIVERED: 347.32mGy.cm Total DLP DATA REPOSITORY: All CT scans at this facility are submitted to the National Radiology Data Registry (NRDR) Dose Index Registry (DIR) with the [employer] (ACR). RADIATION OPTIMIZATION: All CT scans at this facility use at least one of these dose optimization te chniques: automated exposure control; mA and/or kV adjustment per patient size (includes targeted exa ms where dose is matched to clinical indication); or iterative reconstruction.
[2023-07-26 10:46] LABS: D-Dimer 709 ng/mlFEU (<500)
[2023-07-26 10:54] LABS: Bilirubin, Total 0.6 mg/dL (0.2-1.0)
[2023-07-26] MEDS: Normal Saline - Diluent 50 ML VIAL IJ (11:48)
[2023-07-26] MEDS: Normal Saline Flush 10 ML SYR IVP (11:48)
[2023-07-26] MEDS: Omnipaque 350 MG/ML 500 ML BTL-Imaging package IJ (11:49)
--- NOTE | 2023-07-26 12:30 | RT.EKG_ITS ---
APPROVED REPORT Exam: Resting ECG Reason for Exam: Chest Pain Patient Location: E HR:77 bpm ECG Measurements Heart Rate 77 AXIS WA 162 P 72 QRSd 91 QRS -3 QT 374 T 54 QTc 423 Conclusion Sinus rhythm... V-rate 60- 99 Hyperacute T waves and j point elevation anterior leads unchanged, not acute No ST segment or T wave abnormalities to suggest occlusive ND No dynamic changes from prior 07/26/23 0930
[2023-07-26 12:59] LABS: Troponin I < 50 ng/L (<or=60)
[2023-07-26] MEDS: Ketorolac 15 MG/ML VIAL IVP (14:23)
[2023-07-26] MEDS: Omeprazole 20 MG CAPCR PO (14:24)
[2023-07-26] MEDS: Colchicine 0.6 MG TAB PO (14:24)
[2023-07-26 14:38] LABS: ESR 10 mm/hr (0-20)
[2023-07-26 14:55] LABS: C-Reactive Protein 1.48 mg/dL (0.0-0.3)
== END 2023-07-26 14:35 | disposition home or self-care (01) ==
PROVIDERS: Emergency Provider Student in an Organized Health Care Education/Training Program; PCP Family Medicine
DX: R06.02 Shortness of breath (principal); R07.9 Chest pain, unspecified; R79.89 Other specified abnormal findings of blood chemistry; R07.81 Pleurodynia; I31.9 Disease of pericardium, unspecified; K91.2 Postsurgical malabsorption, not elsewhere classified; K50.919 Crohn's disease, unspecified, with unspecified complications; Z99.89 Dependence on other enabling machines and devices
CPT/HCPCS: 36415; 71275; 80053; 85652; 93005; 96374; 99285; 71045; 83735; 84484; 85025; 85379; 86140; 93010; J1885

== ENCOUNTER 2023-08-13 13:00 | Outpatient (RCR) | payer MEDICARE, SELFPAY ==
[2023-07-24] MEDS: Normal Saline Flush 10 ML SYR IVP (12:08)
[2023-07-30] MEDS: Normal Saline Flush 10 ML SYR IVP (13:12)
[2023-07-30] MEDS: Alteplase 2 MG VIAL IJ (13:13)
[2023-07-30] MEDS: Water,Injection,Sterile 10 ML VIAL IJ (13:13)
[2023-07-30 14:40] LABS: Abs Immature Grans 0.03 10^3/uL (0.0-0.06); Absolute Basophil Count 0.04 10^3/uL (0.0-0.2); Absolute Eosinophil Count 0.26 10^3/uL (0.0-0.7); Absolute Lymphocyte Count 2.03 10^3/uL (1.2-3.4); Absolute Monocyte Count 0.65 10^3/uL (0.1-0.8); Absolute Neutrophil Count 4.67 10^3/uL (1.2-6.7); Basophils % 0.5; Eosinophils % 3.4; HCT 36.2 % (40.0-50.0); Immature Grans % 0.4; Lymphocytes % 26.4; MCHC 33.1 % (32.0-36.0); MCV 94 fL (80-95); MPV 11.7 fL (8.0-11.0); Monocytes % 8.5; Neutrophils % 60.8; Platelet Count 208 10^3/uL (130-400); RBC 3.87 10^6/uL (4.36-5.78); RDW 13.2 % (11.8-14.1); RDW-SD 45.3 fL; WBC 7.68 10^3/uL (4.4-10.8)
[2023-07-30 14:58] LABS: ALT 49 U/L (16-63); AST 29 U/L (15-37); Albumin 3.2 g/dL (3.4-5.0); Alkaline Phosphatase 203 U/L (46-116); Anion Gap 4.8 mmol/L (3-11); BUN 21 mg/dL (7-18); Bilirubin, Total 0.4 mg/dL (0.2-1.0); C-Reactive Protein 1.49 mg/dL (0.0-0.3); CO2 30.2 mmol/L (21.0-32.0); Calcium 8.8 mg/dL (8.5-10.1); Chloride 103 mmol/L (98-107); Glucose 103 mg/dL (74-106); Magnesium 1.9 mg/dL (1.8-2.4); PHOSPHORUS 3.4 mg/dL (2.6-4.7); Potassium 4.5 mmol/L (3.5-5.1); Sodium 138 mmol/L (136-145); Total Protein 6.5 g/dL (6.4-8.2)
[2023-07-30 15:13] LABS: Triglyceride 54 mg/dL (<150)
[2023-07-31 09:29] LABS: Prealbumin 26 mg/dL (20-40)
[2023-08-13] MEDS: Normal Saline Flush 10 ML SYR IVP (13:05)
[2023-08-13 13:54] LABS: Abs Immature Grans 0.02 10^3/uL (0.0-0.06); Absolute Basophil Count 0.08 10^3/uL (0.0-0.2); Absolute Eosinophil Count 0.11 10^3/uL (0.0-0.7); Absolute Lymphocyte Count 2.51 10^3/uL (1.2-3.4); Absolute Monocyte Count 0.68 10^3/uL (0.1-0.8); Absolute Neutrophil Count 5.56 10^3/uL (1.2-6.7); Basophils % 0.9; Eosinophils % 1.2; HCT 39.8 % (40.0-50.0); HGB 13.3 g/dL (13.5-17.5); Immature Grans % 0.2; MCH 30.6 pg (27.0-33.0); MCHC 33.4 % (32.0-36.0); MCV 92 fL (80-95); MPV 12.4 fL (8.0-11.0); Monocytes % 7.6; Neutrophils % 62.1; Platelet Count 255 10^3/uL (130-400); RBC 4.35 10^6/uL (4.36-5.78); RDW 13.1 % (11.8-14.1); RDW-SD 44.1 fL; WBC 8.96 10^3/uL (4.4-10.8)
[2023-08-13 14:14] LABS: ALT 76 U/L (16-63); AST 48 U/L (15-37); Albumin 3.6 g/dL (3.4-5.0); Alkaline Phosphatase 269 U/L (46-116); Anion Gap 8.4 mmol/L (3-11); BUN 22 mg/dL (7-18); Bilirubin, Total 0.6 mg/dL (0.2-1.0); CO2 26.6 mmol/L (21.0-32.0); CREATININE 1.1 mg/dL (0.70-1.30); Calcium 9.3 mg/dL (8.5-10.1); Chloride 101 mmol/L (98-107); Estimated GFR 77.33 (mL/min/1.73m2); Glucose 129 mg/dL (74-106); Magnesium 1.9 mg/dL (1.8-2.4); PHOSPHORUS 3.4 mg/dL (2.6-4.7); Potassium 4.1 mmol/L (3.5-5.1); Sodium 136 mmol/L (136-145); Total Protein 7.1 g/dL (6.4-8.2)
[2023-08-13 14:56] LABS: Triglyceride 71 mg/dL (<150); Vitamin B12 835 pg/mL (193-986)
== END 2023-08-18 23:59 | disposition home or self-care (01) ==
LOC: INF 13:00
PROVIDERS: PCP Family Medicine; Visit Provider Family Medicine
DX: E46 Unspecified protein-calorie malnutrition (principal)
CPT/HCPCS: 36415; 36592; 80053; 82607; 83735; 84100; 84134; 84478; 85025; 86140; J2997

== ENCOUNTER 2023-09-17 02:56 | Outpatient (RCR) | payer MEDICARE, SELFPAY ==
[2023-08-20] MEDS: Normal Saline Flush 10 ML SYR IVP (13:12)
[2023-08-21 11:46] LABS: PSA, Diagnostic 1.5 ng/mL (<=3.5)
[2023-08-27 13:22] LABS: Abs Immature Grans 0.03 10^3/uL (0.0-0.06); Absolute Basophil Count 0.05 10^3/uL (0.0-0.2); Absolute Eosinophil Count 0.16 10^3/uL (0.0-0.7); Absolute Lymphocyte Count 2.27 10^3/uL (1.2-3.4); Absolute Monocyte Count 0.65 10^3/uL (0.1-0.8); Absolute Neutrophil Count 6.27 10^3/uL (1.2-6.7); Basophils % 0.5; Eosinophils % 1.7; HCT 38.9 % (40.0-50.0); HGB 12.8 g/dL (13.5-17.5); Immature Grans % 0.3; Lymphocytes % 24.1; MCH 30.5 pg (27.0-33.0); MCHC 32.9 % (32.0-36.0); MCV 93 fL (80-95); MPV 12.4 fL (8.0-11.0); Monocytes % 6.9; Neutrophils % 66.5; Platelet Count 196 10^3/uL (130-400); RBC 4.19 10^6/uL (4.36-5.78); RDW 13.5 % (11.8-14.1); RDW-SD 45.8 fL; WBC 9.43 10^3/uL (4.4-10.8)
[2023-08-27 13:44] LABS: ALT 104 U/L (16-63); AST 59 U/L (15-37); Albumin 3.5 g/dL (3.4-5.0); Alkaline Phosphatase 295 U/L (46-116); Anion Gap 8.3 mmol/L (3-11); BUN 23 mg/dL (7-18); Bilirubin, Total 0.5 mg/dL (0.2-1.0); CO2 26.7 mmol/L (21.0-32.0); Calcium 9.1 mg/dL (8.5-10.1); Chloride 102 mmol/L (98-107); Glucose 126 mg/dL (74-106); Magnesium 1.9 mg/dL (1.8-2.4); PHOSPHORUS 3.4 mg/dL (2.6-4.7); Potassium 4.3 mmol/L (3.5-5.1); Sodium 137 mmol/L (136-145); Total Protein 6.8 g/dL (6.4-8.2); Triglyceride 101 mg/dL (<150)
[2023-08-27 13:51] LABS: C-Reactive Protein 0.31 mg/dL (0.0-0.3)
[2023-08-28 09:40] LABS: Prealbumin 31 mg/dL (20-40)
[2023-09-03] MEDS: Normal Saline Flush 10 ML SYR IVP (13:26)
[2023-09-10] MEDS: Normal Saline Flush 10 ML SYR IVP (13:05)
[2023-09-10 13:30] LABS: Abs Immature Grans 0.05 10^3/uL (0.0-0.06); Absolute Basophil Count 0.07 10^3/uL (0.0-0.2); Absolute Eosinophil Count 0.14 10^3/uL (0.0-0.7); Absolute Lymphocyte Count 2.39 10^3/uL (1.2-3.4); Absolute Monocyte Count 0.64 10^3/uL (0.1-0.8); Absolute Neutrophil Count 5.48 10^3/uL (1.2-6.7); Basophils % 0.8; Eosinophils % 1.6; HCT 41.1 % (40.0-50.0); HGB 13.4 g/dL (13.5-17.5); Immature Grans % 0.6; Lymphocytes % 27.3; MCH 30.6 pg (27.0-33.0); MCHC 32.6 % (32.0-36.0); MCV 94 fL (80-95); MPV 12.7 fL (8.0-11.0); Monocytes % 7.3; Neutrophils % 62.4; Platelet Count 238 10^3/uL (130-400); RBC 4.38 10^6/uL (4.36-5.78); RDW 13.9 % (11.8-14.1); RDW-SD 47.8 fL; WBC 8.77 10^3/uL (4.4-10.8)
[2023-09-10 13:55] LABS: ALT 112 U/L (16-63); AST 61 U/L (15-37); Albumin 3.7 g/dL (3.4-5.0); Alkaline Phosphatase 353 U/L (46-116); Anion Gap 9.5 mmol/L (3-11); BUN 20 mg/dL (7-18); Bilirubin, Total 0.6 mg/dL (0.2-1.0); CO2 27.5 mmol/L (21.0-32.0); CREATININE 1.1 mg/dL (0.70-1.30); Calcium 9.2 mg/dL (8.5-10.1); Chloride 100 mmol/L (98-107); Estimated GFR 77.33 (mL/min/1.73m2); Glucose 126 mg/dL (74-106); Potassium 4.2 mmol/L (3.5-5.1); Sodium 137 mmol/L (136-145); Total Protein 7.3 g/dL (6.4-8.2); Triglyceride 84 mg/dL (<150)
[2023-09-10 14:07] LABS: PHOSPHORUS 3.6 mg/dL (2.6-4.7); Vitamin D 25 Total 26.4 ng/mL (30-100)
[2023-09-17] MEDS: Normal Saline Flush 10 ML SYR IVP (13:08)
== END 2023-09-18 23:59 | disposition home or self-care (01) ==
LOC: INF 02:56
PROVIDERS: PCP Family Medicine; Visit Provider Family Medicine
DX: E46 Unspecified protein-calorie malnutrition (principal); K91.2 Postsurgical malabsorption, not elsewhere classified; R97.20 Elevated prostate specific antigen [PSA]
CPT/HCPCS: 36415; 80053; 82306; 83735; 84100; 84134; 84153; 84478; 85025; 86140

== ENCOUNTER 2023-10-15 02:25 | Outpatient (RCR) | payer MEDICARE, SELFPAY ==
[2023-09-24 13:56] LABS: Abs Immature Grans 0.05 10^3/uL (0.0-0.06); Absolute Basophil Count 0.06 10^3/uL (0.0-0.2); Absolute Eosinophil Count 0.25 10^3/uL (0.0-0.7); Absolute Lymphocyte Count 3.03 10^3/uL (1.2-3.4); Absolute Monocyte Count 0.82 10^3/uL (0.1-0.8); Absolute Neutrophil Count 6.56 10^3/uL (1.2-6.7); Basophils % 0.6; Eosinophils % 2.3; HCT 39.8 % (40.0-50.0); HGB 13.2 g/dL (13.5-17.5); Immature Grans % 0.5; Lymphocytes % 28.1; MCH 30.7 pg (27.0-33.0); MCHC 33.2 % (32.0-36.0); MCV 93 fL (80-95); MPV 12.3 fL (8.0-11.0); Monocytes % 7.6; Neutrophils % 60.9; Platelet Count 261 10^3/uL (130-400); RDW 13.7 % (11.8-14.1); RDW-SD 46.3 fL; WBC 10.77 10^3/uL (4.4-10.8)
[2023-09-24 14:14] LABS: ALT 60 U/L (16-63); AST 33 U/L (15-37); Albumin 3.7 g/dL (3.4-5.0); Alkaline Phosphatase 272 U/L (46-116); Anion Gap 6.8 mmol/L (3-11); BUN 23 mg/dL (7-18); Bilirubin, Total 0.5 mg/dL (0.2-1.0); C-Reactive Protein 0.29 mg/dL (0.0-0.3); CO2 31.2 mmol/L (21.0-32.0); Calcium 9.4 mg/dL (8.5-10.1); Chloride 97 mmol/L (98-107); Glucose 102 mg/dL (74-106); Magnesium 2.2 mg/dL (1.8-2.4); PHOSPHORUS 3.5 mg/dL (2.6-4.7); Potassium 3.5 mmol/L (3.5-5.1); Sodium 135 mmol/L (136-145); Total Protein 7.2 g/dL (6.4-8.2)
[2023-09-24 14:27] LABS: Triglyceride 57 mg/dL (<150)
[2023-09-25 10:58] LABS: Prealbumin 37 mg/dL (20-40)
[2023-10-01] MEDS: Normal Saline Flush 10 ML SYR IVP (13:16)
[2023-10-08] MEDS: Normal Saline Flush 10 ML SYR IVP (13:19)
[2023-10-08 13:30] LABS: Abs Immature Grans 0.02 10^3/uL (0.0-0.06); Absolute Basophil Count 0.06 10^3/uL (0.0-0.2); Absolute Lymphocyte Count 2.69 10^3/uL (1.2-3.4); Absolute Monocyte Count 0.67 10^3/uL (0.1-0.8); Absolute Neutrophil Count 4.67 10^3/uL (1.2-6.7); Basophils % 0.7; Eosinophils % 2.4; HGB 13.3 g/dL (13.5-17.5); Immature Grans % 0.2; Lymphocytes % 32.4; MCH 30.4 pg (27.0-33.0); MCHC 32.4 % (32.0-36.0); MCV 94 fL (80-95); MPV 12.1 fL (8.0-11.0); Monocytes % 8.1; Neutrophils % 56.2; Platelet Count 224 10^3/uL (130-400); RBC 4.38 10^6/uL (4.36-5.78); RDW 13.5 % (11.8-14.1); RDW-SD 46.5 fL; WBC 8.31 10^3/uL (4.4-10.8)
[2023-10-08 13:59] LABS: ALT 45 U/L (16-63); AST 30 U/L (15-37); Albumin 3.4 g/dL (3.4-5.0); Alkaline Phosphatase 182 U/L (46-116); Anion Gap 4.9 mmol/L (3-11); BUN 22 mg/dL (7-18); Bilirubin, Total 0.6 mg/dL (0.2-1.0); CO2 31.1 mmol/L (21.0-32.0); Calcium 9.1 mg/dL (8.5-10.1); Chloride 99 mmol/L (98-107); Glucose 127 mg/dL (74-106); Magnesium 2.1 mg/dL (1.8-2.4); PHOSPHORUS 3.3 mg/dL (2.6-4.7); Potassium 3.7 mmol/L (3.5-5.1); Sodium 135 mmol/L (136-145); Total Protein 6.9 g/dL (6.4-8.2)
[2023-10-08 14:18] LABS: Triglyceride 52 mg/dL (<150)
[2023-10-15] MEDS: Normal Saline Flush 10 ML SYR IVP (13:10)
== END 2023-10-18 23:59 | disposition home or self-care (01) ==
LOC: INF 02:25
PROVIDERS: PCP Family Medicine; Visit Provider Family Medicine
DX: E46 Unspecified protein-calorie malnutrition (principal); K91.2 Postsurgical malabsorption, not elsewhere classified; K50.90 Crohn's disease, unspecified, without complications; C61 Malignant neoplasm of prostate
CPT/HCPCS: 36415; 80053; 83735; 84100; 84134; 84478; 85025; 86140

== ENCOUNTER → 2023-10-17 01:34 | Outpatient (CLI) | payer MEDICARE, SELFPAY ==
--- NOTE | 2023-10-17 07:30 | DI.US_ITS ---
APPROVED REPORT EXAM: Comprehensive 2D, Doppler, and color-flow Echocardiogram Patient Location: Out-Patient [employer] Repairer: Breanne Cabrera RDCS (AE) Indications: Pericarditis Other Information Study Quality: Adequate. Technically limited study due to body habitus, smoker.. Conclusion Normal left ventricular wall thickness and chamber size. Ejection fraction is 55%. Wall motion is n ormal. Diastolic function is normal for age Normal right ventricular size and systolic function Both atria are normal in size There is no structural or hemodynamically significant valvular disease Estimated right ventricular systolic pressure is 22 mmHg There is no pericardial effusion Wall motion Left Ventricle The left ventricle is normal size. The left ventricular systolic function is normal. The left ventric ular ejection fraction is within the normal range. There is normal left ventricular wall thickness. T here is normal LV segmental wall motion. There is no ventricular septal defect visualized. LVEF is 55 %. Right Ventricle Right ventricle is grossly normal in size. Right ventricular systolic function is grossly normal. Atria The left atrium size is normal. The right atrium size is normal. The interatrial septum is intact wit h no evidence for an atrial septal defect. Aortic Valve The aortic valve is normal in structure. Aortic valve is trileaflet. There is no aortic valvular sten osis. No aortic regurgitation is present. Mitral Valve The mitral valve is normal in structure. No evidence of mitral valve stenosis. Trace mitral regurgita tion. Tricuspid Valve The tricuspid valve is normal in structure. There is no tricuspid valve stenosis. Trace tricuspid reg urgitation. The RVSP is 22.0_ mmHg. Pulmonic Valve The pulmonary valve is normal in structure. There is no pulmonic valvular stenosis. There is no pulmo martha valvular regurgitation. Great Vessels The aortic root is normal in size. Aortic arch is normal in caliber. IVC is normal in size and colla pses >50% with inspiration. Pericardium There is no pericardial effusion. 2D Dimensions IVSD d PLAX 0.92 cm M: 0.6-1.2 Ao Root d 3.08 cm M: 3.1 - 3.7 LVPW d PLAX 0.91 cm M: 0.6 - 1.2 LVID d PLAX 5.14 cm M: 4.2 - 5.8 LVDs 3.66 cm M: 2.5 - 4.0 LV EF Teichholz 55.0 % FS 28.76 % LV EDV (Teich) 126.1 mL LV ESV (Teich) 56.7 mL Auto EF LV EDV A4C 88.1 mL LV EDV A2C 112.1 mL LV EDV BP 101.6 mL LV ESV A4C 39.2 mL LV ESV A2C 51.2 mL LV ESV BP 45.7 mL LVEF(%) A4C 55.6 % LVEF(%) A2C 54.4 % LVEF(%) BP 55.0 % LV SV A4C 49.0 ml LV SV A2C 60.9 ml LV SV BP 55.9 ml LV CO A4C 3.4 L/min LV CO A2C 4.3 L/min LV CO BP 3.9 L/min HR A4C 70.32 BPM HR A2C 70.84 BPM LV EDV Index (BP) LV Strain Long Pk Overal Avg (s) 17.54 RV Strain Global Peak Long. Strain A4C 18.90 Global Peak Long. Strain A4C FW 20.62 LA Volume LA Length A4C 6.0 cm LA Length A2C 4.9 cm LA Area A4C s 23.37 cm2 LA Area A2C s 17.07 cm2 LA Vol A4C A-L 77.75 mL LA Vol A2C A-L 50.68 mL LA Vol Biplane A-L 69.4 mL LA Vol/BSA A4C A-L LA Vol/BSA A2C A-L LA Vol/BSA BP A-L 34.4 mL/m2 LA Vol A4C MOD 71.8 mL LA Vol A2C MOD 49.1 mL LA Vol BP MOD 64.8 mL RA Volume RA Area A4C 18.7 cm2 RA ESV A4C (A-L) 59.9mL RA Vol/BSA A4C A-L RA Length A4C 4.9 cm RA ESV A4C (MOD) 55.5mL LV Diastology MV E Vmax 0.87 (0.4-1.3 m/s) MV A Vmax 0.75 (0.4-1.3 m/s) E/A Ratio 1.2 Aortic Valve AoV Vmax 1.47 m/s LVOT Vmax 1.27 m/s AoV Peak Grad 8.6 mmHg LVOT Peak Grad 6.4 mmHg AoV Area (Vmax) 2.83 cm2 LVOT VTI 0.247 m AoV VTI 0.280 m LVOT Mean Grad 3.0 mmHg AoV Mean [place]. 0.90 m/s LVOT SV 80.83 mL AoV Mean Grad 3.9 mmHg LVOT Diam s 2.00 cm AoV Area (VTI) 2.89 cm2 Velocity Ratio 0.86 Mitral Valve MV DT 225 (160-240 msec) Pulmonary Valve PV Vmax 1.40 (0.5-1.5 m/s) RVOT Vmax 0.99 m/s PV Peak Grad 7.9 mmHg RVOT Peak Gr. 3.9 mmHg PV Mean [place] 0.92 m/s RVOT VTI 0.220 m PV Mean Grad 4.0 mmHg RVOT Mean Gr. 2.1 mmHg Tricuspid Valve RA Pressure 3.00 mmHg TR Vmax 2.18 m/s TR Peak Grad 18.9 mmHg RVSP (TR) 22.0 mmHg
== END ==
PROVIDERS: PCP Family Medicine; Visit Provider Family Medicine
DX: I31.9 Disease of pericardium, unspecified (principal)
CPT/HCPCS: 93306

== ENCOUNTER 2023-11-13 01:47 | Outpatient (RCR) | payer MEDICARE, SELFPAY ==
[2023-10-22] MEDS: Normal Saline Flush 10 ML SYR IVP (13:05)
[2023-10-22 17:03] LABS: Abs Immature Grans 0.02 10^3/uL (0.0-0.06); Absolute Basophil Count 0.05 10^3/uL (0.0-0.2); Absolute Eosinophil Count 0.14 10^3/uL (0.0-0.7); Absolute Lymphocyte Count 2.82 10^3/uL (1.2-3.4); Absolute Monocyte Count 0.71 10^3/uL (0.1-0.8); Absolute Neutrophil Count 5.26 10^3/uL (1.2-6.7); Basophils % 0.6; Eosinophils % 1.6; HCT 42.2 % (40.0-50.0); HGB 13.7 g/dL (13.5-17.5); Immature Grans % 0.2; Lymphocytes % 31.3; MCH 30.9 pg (27.0-33.0); MCHC 32.5 % (32.0-36.0); MCV 95 fL (80-95); MPV 12.8 fL (8.0-11.0); Monocytes % 7.9; Neutrophils % 58.4; Platelet Count 249 10^3/uL (130-400); RBC 4.44 10^6/uL (4.36-5.78); RDW 13.7 % (11.8-14.1); RDW-SD 48.6 fL
[2023-10-22 17:17] LABS: ALT 49 U/L (16-63); AST 33 U/L (15-37); Albumin 3.6 g/dL (3.4-5.0); Alkaline Phosphatase 173 U/L (46-116); Anion Gap 6.6 mmol/L (3-11); BUN 21 mg/dL (7-18); Bilirubin, Total 0.5 mg/dL (0.2-1.0); CO2 30.4 mmol/L (21.0-32.0); Calcium 9.1 mg/dL (8.5-10.1); Chloride 101 mmol/L (98-107); Glucose 128 mg/dL (74-106); Sodium 138 mmol/L (136-145)
[2023-10-22 17:28] LABS: Triglyceride 45 mg/dL (<150)
[2023-10-23 19:29] LABS: PHOSPHORUS 3.4 mg/dL (2.6-4.7)
[2023-10-29] MEDS: Normal Saline Flush 10 ML SYR IVP (13:07)
[2023-10-29 13:32] LABS: C-Reactive Protein 0.28 mg/dL (0.0-0.3)
[2023-10-30 09:43] LABS: Prealbumin 30 mg/dL (20-40)
[2023-11-05] MEDS: Normal Saline Flush 10 ML SYR IVP (13:14)
[2023-11-05 13:41] LABS: Abs Immature Grans 0.03 10^3/uL (0.0-0.06); Absolute Basophil Count 0.05 10^3/uL (0.0-0.2); Absolute Eosinophil Count 0.14 10^3/uL (0.0-0.7); Absolute Lymphocyte Count 2.91 10^3/uL (1.2-3.4); Absolute Monocyte Count 0.73 10^3/uL (0.1-0.8); Basophils % 0.6; Eosinophils % 1.5; HCT 40.7 % (40.0-50.0); HGB 13.2 g/dL (13.5-17.5); Immature Grans % 0.3; Lymphocytes % 32.1; MCH 30.5 pg (27.0-33.0); MCHC 32.4 % (32.0-36.0); MCV 94 fL (80-95); MPV 11.9 fL (8.0-11.0); Monocytes % 8.1; Neutrophils % 57.4; Platelet Count 252 10^3/uL (130-400); RBC 4.33 10^6/uL (4.36-5.78); RDW 13.5 % (11.8-14.1); RDW-SD 46.9 fL; WBC 9.06 10^3/uL (4.4-10.8)
[2023-11-05 14:02] LABS: ALT 44 U/L (16-63); AST 27 U/L (15-37); Albumin 3.4 g/dL (3.4-5.0); Alkaline Phosphatase 168 U/L (46-116); Anion Gap 6.8 mmol/L (3-11); BUN 19 mg/dL (7-18); Bilirubin, Total 0.5 mg/dL (0.2-1.0); CO2 29.2 mmol/L (21.0-32.0); Chloride 102 mmol/L (98-107); Glucose 98 mg/dL (74-106); Sodium 138 mmol/L (136-145); Triglyceride 49 mg/dL (<150)
[2023-11-05 14:19] LABS: PHOSPHORUS 3.6 mg/dL (2.6-4.7)
[2023-11-13] MEDS: Normal Saline Flush 10 ML SYR IVP (13:07)
== END 2023-11-18 23:59 | disposition home or self-care (01) ==
LOC: INF 01:47
PROVIDERS: PCP Family Medicine; Visit Provider Family Medicine
DX: K50.90 Crohn's disease, unspecified, without complications (principal); C61 Malignant neoplasm of prostate; E46 Unspecified protein-calorie malnutrition
CPT/HCPCS: 36415; 80053; 83735; 84100; 84134; 84478; 85025; 86140

== ENCOUNTER 2023-12-17 03:05 | Outpatient (RCR) | payer MEDICARE, SELFPAY ==
[2023-11-20] MEDS: Normal Saline Flush 10 ML SYR IVP (13:13)
[2023-11-20 13:38] LABS: Abs Immature Grans 0.03 10^3/uL (0.0-0.06); Absolute Basophil Count 0.05 10^3/uL (0.0-0.2); Absolute Eosinophil Count 0.16 10^3/uL (0.0-0.7); Absolute Lymphocyte Count 2.67 10^3/uL (1.2-3.4); Absolute Monocyte Count 0.68 10^3/uL (0.1-0.8); Absolute Neutrophil Count 5.45 10^3/uL (1.2-6.7); Basophils % 0.6; Eosinophils % 1.8; HCT 40.8 % (40.0-50.0); HGB 13.4 g/dL (13.5-17.5); Immature Grans % 0.3; Lymphocytes % 29.5; MCH 30.6 pg (27.0-33.0); MCHC 32.8 % (32.0-36.0); MCV 93 fL (80-95); MPV 11.6 fL (8.0-11.0); Monocytes % 7.5; Neutrophils % 60.3; Platelet Count 236 10^3/uL (130-400); RBC 4.38 10^6/uL (4.36-5.78); RDW 13.4 % (11.8-14.1); RDW-SD 46.1 fL; WBC 9.04 10^3/uL (4.4-10.8)
[2023-11-20 13:56] LABS: ALT 43 U/L (16-63); AST 26 U/L (15-37); Albumin 3.4 g/dL (3.4-5.0); Alkaline Phosphatase 169 U/L (46-116); Anion Gap 6.3 mmol/L (3-11); BUN 22 mg/dL (7-18); Bilirubin, Total 0.5 mg/dL (0.2-1.0); CO2 30.7 mmol/L (21.0-32.0); Chloride 100 mmol/L (98-107); Glucose 70 mg/dL (74-106); Magnesium 1.9 mg/dL (1.8-2.4); Potassium 3.6 mmol/L (3.5-5.1); Sodium 137 mmol/L (136-145); Total Protein 7.1 g/dL (6.4-8.2); Triglyceride 48 mg/dL (<150)
[2023-11-20 15:28] LABS: PHOSPHORUS 3.3 mg/dL (2.6-4.7)
[2023-11-26] MEDS: Normal Saline Flush 10 ML SYR IVP (13:08)
[2023-12-03] MEDS: Normal Saline Flush 10 ML SYR IVP (13:22)
[2023-12-03 13:35] LABS: Abs Immature Grans 0.03 10^3/uL (0.0-0.06); Absolute Basophil Count 0.08 10^3/uL (0.0-0.2); Absolute Eosinophil Count 0.14 10^3/uL (0.0-0.7); Absolute Lymphocyte Count 2.98 10^3/uL (1.2-3.4); Absolute Monocyte Count 0.79 10^3/uL (0.1-0.8); Absolute Neutrophil Count 4.75 10^3/uL (1.2-6.7); Basophils % 0.9; Eosinophils % 1.6; HCT 40.4 % (40.0-50.0); HGB 13.3 g/dL (13.5-17.5); Immature Grans % 0.3; MCH 30.8 pg (27.0-33.0); MCHC 32.9 % (32.0-36.0); MCV 94 fL (80-95); MPV 11.8 fL (8.0-11.0); Neutrophils % 54.2; Platelet Count 250 10^3/uL (130-400); RBC 4.32 10^6/uL (4.36-5.78); RDW 13.4 % (11.8-14.1); RDW-SD 46.1 fL; WBC 8.77 10^3/uL (4.4-10.8)
[2023-12-03 14:05] LABS: ALT 42 U/L (16-63); AST 27 U/L (15-37); Albumin 3.4 g/dL (3.4-5.0); Alkaline Phosphatase 167 U/L (46-116); Anion Gap 6.4 mmol/L (3-11); BUN 20 mg/dL (7-18); Bilirubin, Total 0.5 mg/dL (0.2-1.0); C-Reactive Protein 0.21 mg/dL (0.0-0.3); CO2 30.6 mmol/L (21.0-32.0); CREATININE 1.1 mg/dL (0.70-1.30); Calcium 9.2 mg/dL (8.5-10.1); Chloride 101 mmol/L (98-107); Estimated GFR 77.33 (mL/min/1.73m2); Glucose 100 mg/dL (74-106); PHOSPHORUS 3.4 mg/dL (2.6-4.7); Potassium 3.7 mmol/L (3.5-5.1); Sodium 138 mmol/L (136-145); Total Protein 6.9 g/dL (6.4-8.2)
[2023-12-03 14:16] LABS: Triglyceride 45 mg/dL (<150)
[2023-12-04 09:56] LABS: Prealbumin 32 mg/dL (20-40)
[2023-12-10] MEDS: Normal Saline Flush 10 ML SYR IVP (13:04)
[2023-12-17 13:28] LABS: Abs Immature Grans 0.03 10^3/uL (0.0-0.06); Absolute Basophil Count 0.05 10^3/uL (0.0-0.2); Absolute Eosinophil Count 0.17 10^3/uL (0.0-0.7); Absolute Lymphocyte Count 2.54 10^3/uL (1.2-3.4); Absolute Neutrophil Count 4.87 10^3/uL (1.2-6.7); Basophils % 0.6; Eosinophils % 2.1; HCT 41.2 % (40.0-50.0); HGB 13.6 g/dL (13.5-17.5); Immature Grans % 0.4; Lymphocytes % 30.8; MCH 30.6 pg (27.0-33.0); MCV 93 fL (80-95); MPV 11.4 fL (8.0-11.0); Monocytes % 7.3; Neutrophils % 58.8; Platelet Count 252 10^3/uL (130-400); RBC 4.44 10^6/uL (4.36-5.78); RDW 13.7 % (11.8-14.1); RDW-SD 46.6 fL; WBC 8.26 10^3/uL (4.4-10.8)
[2023-12-17] MEDS: Normal Saline Flush 10 ML SYR IVP (13:33)
[2023-12-17 13:38] LABS: ALT 44 U/L (16-63); AST 28 U/L (15-37); Albumin 3.5 g/dL (3.4-5.0); Alkaline Phosphatase 172 U/L (46-116); Anion Gap 7.2 mmol/L (3-11); BUN 22 mg/dL (7-18); Bilirubin, Total 0.5 mg/dL (0.2-1.0); CO2 29.8 mmol/L (21.0-32.0); CREATININE 1.1 mg/dL (0.70-1.30); Calcium 9.6 mg/dL (8.5-10.1); Chloride 102 mmol/L (98-107); Estimated GFR 77.33 (mL/min/1.73m2); Glucose 128 mg/dL (74-106); PHOSPHORUS 3.2 mg/dL (2.6-4.7); Potassium 3.7 mmol/L (3.5-5.1); Sodium 139 mmol/L (136-145)
[2023-12-17 13:49] LABS: Triglyceride 37 mg/dL (<150)
== END 2023-12-19 23:59 | disposition home or self-care (01) ==
LOC: INF 03:05
PROVIDERS: PCP Family Medicine; Visit Provider Family Medicine
DX: E46 Unspecified protein-calorie malnutrition (principal); K91.2 Postsurgical malabsorption, not elsewhere classified
CPT/HCPCS: 36415; 80053; 83735; 84100; 84134; 84478; 85025; 86140

== ENCOUNTER 2023-12-17 03:12 | Outpatient (RCR) | payer MEDICARE, SELFPAY | END 2023-12-19 23:59 | disposition home or self-care (01) | LOC: INF 03:12 | PROVIDERS: PCP Family Medicine; Visit Provider Family Medicine | DX: E46 Unspecified protein-calorie malnutrition (principal); K91.2 Postsurgical malabsorption, not elsewhere classified | CPT/HCPCS: 36415 ==

== ENCOUNTER 2024-01-14 03:52 | Outpatient (RCR) | payer MEDICARE, SELFPAY ==
[2023-12-24] MEDS: Normal Saline Flush 10 ML SYR IVP (13:09)
[2023-12-31] MEDS: Normal Saline Flush 10 ML SYR IVP (13:10)
[2023-12-31 13:30] LABS: Abs Immature Grans 0.02 10^3/uL (0.0-0.06); Absolute Basophil Count 0.05 10^3/uL (0.0-0.2); Absolute Eosinophil Count 0.15 10^3/uL (0.0-0.7); Absolute Lymphocyte Count 2.46 10^3/uL (1.2-3.4); Absolute Monocyte Count 0.65 10^3/uL (0.1-0.8); Basophils % 0.6; Eosinophils % 1.8; HCT 39.4 % (40.0-50.0); Immature Grans % 0.2; Lymphocytes % 28.8; MCH 30.6 pg (27.0-33.0); MCV 93 fL (80-95); MPV 11.6 fL (8.0-11.0); Monocytes % 7.6; Platelet Count 231 10^3/uL (130-400); RBC 4.25 10^6/uL (4.36-5.78); RDW 13.7 % (11.8-14.1); RDW-SD 46.5 fL; WBC 8.53 10^3/uL (4.4-10.8)
[2023-12-31 13:46] LABS: ALT 43 U/L (16-63); AST 28 U/L (15-37); Albumin 3.3 g/dL (3.4-5.0); Alkaline Phosphatase 166 U/L (46-116); Anion Gap 8.5 mmol/L (3-11); BUN 20 mg/dL (7-18); Bilirubin, Total 0.5 mg/dL (0.2-1.0); CO2 29.5 mmol/L (21.0-32.0); Calcium 8.8 mg/dL (8.5-10.1); Chloride 100 mmol/L (98-107); Glucose 139 mg/dL (74-106); Magnesium 1.9 mg/dL (1.8-2.4); PHOSPHORUS 3.2 mg/dL (2.6-4.7); Potassium 3.8 mmol/L (3.5-5.1); Sodium 138 mmol/L (136-145); Total Protein 6.8 g/dL (6.4-8.2)
[2023-12-31 13:48] LABS: C-Reactive Protein < 0.50 mg/dL (<or=0.5)
[2023-12-31 14:09] LABS: Triglyceride 38 mg/dL (<150)
[2024-01-01 10:17] LABS: Prealbumin 29 mg/dL (20-40)
[2024-01-07] MEDS: Normal Saline Flush 10 ML SYR IVP (13:30)
[2024-01-14] MEDS: Normal Saline Flush 10 ML SYR IVP (13:22)
[2024-01-14 13:40] LABS: Abs Immature Grans 0.04 10^3/uL (0.0-0.06); Absolute Basophil Count 0.06 10^3/uL (0.0-0.2); Absolute Eosinophil Count 0.16 10^3/uL (0.0-0.7); Absolute Lymphocyte Count 2.94 10^3/uL (1.2-3.4); Absolute Monocyte Count 0.74 10^3/uL (0.1-0.8); Absolute Neutrophil Count 5.98 10^3/uL (1.2-6.7); Basophils % 0.6; Eosinophils % 1.6; HCT 39.7 % (40.0-50.0); HGB 13.4 g/dL (13.5-17.5); Immature Grans % 0.4; Lymphocytes % 29.6; MCH 31.2 pg (27.0-33.0); MCHC 33.8 % (32.0-36.0); MCV 92 fL (80-95); MPV 11.9 fL (8.0-11.0); Monocytes % 7.5; Neutrophils % 60.3; Platelet Count 232 10^3/uL (130-400); RDW 13.6 % (11.8-14.1); RDW-SD 46.6 fL; WBC 9.92 10^3/uL (4.4-10.8)
[2024-01-14 13:58] LABS: ALT 45 U/L (16-63); AST 26 U/L (15-37); Albumin 3.4 g/dL (3.4-5.0); Alkaline Phosphatase 169 U/L (46-116); BUN 20 mg/dL (7-18); Bilirubin, Total 0.5 mg/dL (0.2-1.0); CREATININE 1.1 mg/dL (0.70-1.30); Calcium 8.9 mg/dL (8.5-10.1); Chloride 101 mmol/L (98-107); Estimated GFR 77.33 (mL/min/1.73m2); Glucose 125 mg/dL (74-106); Magnesium 1.9 mg/dL (1.8-2.4); PHOSPHORUS 3.2 mg/dL (2.6-4.7); Potassium 3.6 mmol/L (3.5-5.1); Sodium 138 mmol/L (136-145); Total Protein 6.9 g/dL (6.4-8.2)
[2024-01-14 14:08] LABS: Triglyceride 49 mg/dL (<150)
== END 2024-01-17 23:59 | disposition home or self-care (01) ==
LOC: INF 03:52
PROVIDERS: PCP Family Medicine; Visit Provider Family Medicine
DX: E46 Unspecified protein-calorie malnutrition (principal); K91.2 Postsurgical malabsorption, not elsewhere classified
CPT/HCPCS: 36415; 80053; 83735; 84100; 84134; 84478; 85025; 86140

== ENCOUNTER 2024-02-11 04:31 | Outpatient (RCR) | payer MEDICARE, SELFPAY ==
[2024-01-28] MEDS: Normal Saline Flush 10 ML SYR IVP (13:09)
[2024-01-28 13:35] LABS: Abs Immature Grans 0.02 10^3/uL (0.0-0.06); Absolute Basophil Count 0.06 10^3/uL (0.0-0.2); Absolute Eosinophil Count 0.14 10^3/uL (0.0-0.7); Absolute Lymphocyte Count 3.11 10^3/uL (1.2-3.4); Absolute Monocyte Count 0.66 10^3/uL (0.1-0.8); Absolute Neutrophil Count 5.75 10^3/uL (1.2-6.7); Basophils % 0.6; Eosinophils % 1.4; HCT 41.7 % (40.0-50.0); HGB 13.8 g/dL (13.5-17.5); Immature Grans % 0.2; Lymphocytes % 31.9; MCHC 33.1 % (32.0-36.0); MCV 94 fL (80-95); MPV 11.5 fL (8.0-11.0); Monocytes % 6.8; Neutrophils % 59.1; Platelet Count 253 10^3/uL (130-400); RBC 4.45 10^6/uL (4.36-5.78); RDW 13.6 % (11.8-14.1); RDW-SD 46.7 fL; WBC 9.74 10^3/uL (4.4-10.8)
[2024-01-28 13:53] LABS: ALT 43 U/L (16-63); AST 31 U/L (15-37); Albumin 3.4 g/dL (3.4-5.0); Alkaline Phosphatase 178 U/L (46-116); Anion Gap 9.4 mmol/L (3-11); BUN 22 mg/dL (7-18); Bilirubin, Total 0.5 mg/dL (0.2-1.0); CO2 28.6 mmol/L (21.0-32.0); CREATININE 1.1 mg/dL (0.70-1.30); Chloride 102 mmol/L (98-107); Estimated GFR 77.33 (mL/min/1.73m2); Glucose 142 mg/dL (74-106); Magnesium 2.1 mg/dL (1.8-2.4); PHOSPHORUS 3.2 mg/dL (2.6-4.7); Potassium 3.7 mmol/L (3.5-5.1); Sodium 140 mmol/L (136-145); Total Protein 7.2 g/dL (6.4-8.2)
[2024-01-28 13:54] LABS: C-Reactive Protein < 0.50 mg/dL (<or=0.5)
[2024-01-28 14:04] LABS: Triglyceride 40 mg/dL (<150)
[2024-01-29 17:09] LABS: Prealbumin 31 mg/dL (20-40)
[2024-02-04] MEDS: Normal Saline Flush 10 ML SYR IVP (13:38)
[2024-02-11] MEDS: Normal Saline Flush 10 ML SYR IVP (13:11)
[2024-02-11 13:20] LABS: Abs Immature Grans 0.01 10^3/uL (0.0-0.06); Absolute Basophil Count 0.05 10^3/uL (0.0-0.2); Absolute Eosinophil Count 0.14 10^3/uL (0.0-0.7); Absolute Lymphocyte Count 2.46 10^3/uL (1.2-3.4); Absolute Monocyte Count 0.65 10^3/uL (0.1-0.8); Absolute Neutrophil Count 5.28 10^3/uL (1.2-6.7); Basophils % 0.6; Eosinophils % 1.6; HCT 38.7 % (40.0-50.0); HGB 13.2 g/dL (13.5-17.5); Immature Grans % 0.1; Lymphocytes % 28.6; MCH 31.8 pg (27.0-33.0); MCHC 34.1 % (32.0-36.0); MCV 93 fL (80-95); MPV 11.6 fL (8.0-11.0); Monocytes % 7.6; Neutrophils % 61.5; Platelet Count 235 10^3/uL (130-400); RBC 4.15 10^6/uL (4.36-5.78); RDW 13.5 % (11.8-14.1); RDW-SD 46.3 fL; WBC 8.59 10^3/uL (4.4-10.8)
[2024-02-11 13:39] LABS: ALT 45 U/L (16-63); AST 29 U/L (15-37); Albumin 3.3 g/dL (3.4-5.0); Alkaline Phosphatase 178 U/L (46-116); Anion Gap 5.6 mmol/L (3-11); BUN 24 mg/dL (7-18); Bilirubin, Total 0.6 mg/dL (0.2-1.0); CO2 30.4 mmol/L (21.0-32.0); Calcium 8.7 mg/dL (8.5-10.1); Chloride 101 mmol/L (98-107); Glucose 134 mg/dL (74-106); PHOSPHORUS 3.2 mg/dL (2.6-4.7); Potassium 3.6 mmol/L (3.5-5.1); Sodium 137 mmol/L (136-145); Total Protein 6.8 g/dL (6.4-8.2)
[2024-02-11 13:51] LABS: Triglyceride 41 mg/dL (<150)
== END 2024-02-17 23:59 | disposition home or self-care (01) ==
LOC: INF 04:31
PROVIDERS: PCP Family Medicine; Visit Provider Family Medicine
DX: E46 Unspecified protein-calorie malnutrition (principal); K91.2 Postsurgical malabsorption, not elsewhere classified; K50.90 Crohn's disease, unspecified, without complications; C61 Malignant neoplasm of prostate
CPT/HCPCS: 36415; 36592; 80053; 83735; 84100; 84134; 84478; 85025; 86140

== ENCOUNTER 2024-03-17 05:25 | Outpatient (RCR) | payer MEDICARE, SELFPAY ==
[2024-02-25] MEDS: Normal Saline Flush 10 ML SYR IVP (12:47)
[2024-02-25 13:01] LABS: Abs Immature Grans 0.04 10^3/uL (0.0-0.06); Absolute Basophil Count 0.06 10^3/uL (0.0-0.2); Absolute Eosinophil Count 0.11 10^3/uL (0.0-0.7); Absolute Lymphocyte Count 2.83 10^3/uL (1.2-3.4); Absolute Monocyte Count 0.77 10^3/uL (0.1-0.8); Basophils % 0.5; HCT 39.2 % (40.0-50.0); HGB 13.2 g/dL (13.5-17.5); Immature Grans % 0.4; MCH 31.7 pg (27.0-33.0); MCHC 33.7 % (32.0-36.0); MCV 94 fL (80-95); MPV 11.3 fL (8.0-11.0); Monocytes % 6.8; Neutrophils % 66.3; Platelet Count 233 10^3/uL (130-400); RBC 4.17 10^6/uL (4.36-5.78); RDW 13.3 % (11.8-14.1); RDW-SD 46.5 fL; WBC 11.31 10^3/uL (4.4-10.8)
[2024-02-25 13:31] LABS: ALT 51 U/L (16-63); AST 33 U/L (15-37); Albumin 3.3 g/dL (3.4-5.0); Alkaline Phosphatase 182 U/L (46-116); Anion Gap 9.5 mmol/L (3-11); BUN 21 mg/dL (7-18); Bilirubin, Total 0.6 mg/dL (0.2-1.0); CO2 26.5 mmol/L (21.0-32.0); Calcium 8.7 mg/dL (8.5-10.1); Chloride 103 mmol/L (98-107); Glucose 127 mg/dL (74-106); PHOSPHORUS 3.2 mg/dL (2.6-4.7); Sodium 139 mmol/L (136-145); Total Protein 6.8 g/dL (6.4-8.2); Triglyceride 41 mg/dL (<150)
[2024-02-25 13:54] LABS: C-Reactive Protein < 0.50 mg/dL (<or=0.5)
[2024-02-26 09:32] LABS: Prealbumin 31 mg/dL (20-40)
[2024-03-03] MEDS: Normal Saline Flush 10 ML SYR IVP (13:07)
[2024-03-10] MEDS: Normal Saline Flush 10 ML SYR IVP (13:16)
[2024-03-10 13:25] LABS: Abs Immature Grans 0.04 10^3/uL (0.0-0.06); Absolute Basophil Count 0.06 10^3/uL (0.0-0.2); Absolute Lymphocyte Count 2.63 10^3/uL (1.2-3.4); Absolute Monocyte Count 0.65 10^3/uL (0.1-0.8); Absolute Neutrophil Count 7.04 10^3/uL (1.2-6.7); Basophils % 0.6; HCT 41.5 % (40.0-50.0); HGB 13.7 g/dL (13.5-17.5); Immature Grans % 0.4; MCH 31.4 pg (27.0-33.0); MCV 95 fL (80-95); MPV 11.2 fL (8.0-11.0); Monocytes % 6.2; Neutrophils % 66.8; Platelet Count 254 10^3/uL (130-400); RBC 4.37 10^6/uL (4.36-5.78); RDW 13.1 % (11.8-14.1); RDW-SD 46.2 fL; WBC 10.52 10^3/uL (4.4-10.8)
[2024-03-10 13:43] LABS: ALT 59 U/L (16-63); AST 30 U/L (15-37); Albumin 3.4 g/dL (3.4-5.0); Alkaline Phosphatase 203 U/L (46-116); Anion Gap 7.6 mmol/L (3-11); BUN 21 mg/dL (7-18); Bilirubin, Total 0.5 mg/dL (0.2-1.0); CO2 29.4 mmol/L (21.0-32.0); CREATININE 1.1 mg/dL (0.70-1.30); Calcium 8.9 mg/dL (8.5-10.1); Chloride 102 mmol/L (98-107); Estimated GFR 77.33 (mL/min/1.73m2); Glucose 119 mg/dL (74-106); Magnesium 2.1 mg/dL (1.8-2.4); PHOSPHORUS 3.6 mg/dL (2.6-4.7); Potassium 4.2 mmol/L (3.5-5.1); Sodium 139 mmol/L (136-145); Triglyceride 54 mg/dL (<150)
[2024-03-17] MEDS: Normal Saline Flush 10 ML SYR IVP (13:07)
== END 2024-03-18 23:59 | disposition home or self-care (01) ==
LOC: INF 05:25
PROVIDERS: PCP Family Medicine; Visit Provider Family Medicine
DX: E46 Unspecified protein-calorie malnutrition (principal); K91.2 Postsurgical malabsorption, not elsewhere classified
CPT/HCPCS: 36415; 80053; 83735; 84100; 84134; 84478; 85025; 86140

== ENCOUNTER 2024-04-16 09:54 | Emergency (ER) | payer MEDICARE, SELFPAY ==
[2024-04-16 09:56] VITALS: BP 147/97; PULSE 84; RESP 18; TEMP 37.1; O2SAT 99
[2024-04-16 10:25] LABS: Lactate 1.1 mmol/L (0.6-1.4)
[2024-04-16 10:30] LABS: Abs Immature Grans 0.02 10^3/uL (0.0-0.06); Absolute Basophil Count 0.05 10^3/uL (0.0-0.2); Absolute Lymphocyte Count 1.99 10^3/uL (1.2-3.4); Absolute Monocyte Count 0.63 10^3/uL (0.1-0.8); Absolute Neutrophil Count 5.98 10^3/uL (1.2-6.7); Basophils % 0.6 %; Eosinophils % 1.1 %; HCT 40.2 % (40.0-50.0); HGB 13.7 g/dL (13.5-17.5); Immature Grans % 0.2 %; Lymphocytes % 22.7 %; MCH 31.1 pg (27.0-33.0); MCHC 34.1 % (32.0-36.0); MCV 91 fL (80-95); MPV 11.3 fL (8.0-11.0); Monocytes % 7.2 %; Neutrophils % 68.2 %; Platelet Count 236 10^3/uL (130-400); RDW 13.2 % (11.8-14.1); RDW-SD 44.5 fL; WBC 8.77 10^3/uL (4.4-10.8)
--- NOTE | 2024-04-16 10:31 | ED.GENADUL_ITS ---
Discharge Plan Disposition Patient Disposition: Against Medical Advice Discharge Details Clinical Impression: Fever Primary Care Provider: Natty Mckinney V ED Provider: Zee Medina Home Meds and New Rx's Prescriptions: Continued ondansetron HCl [Zofran] 4 mg Tablet 4 mg PO Q6H PRN hydrocodone-acetaminophen 10-325 mg Tablet 2 tab PO Q8H PRN diphenoxylate-atropine [Lomotil] 2.5-0.025 mg tablet 4 tab PO TID Centrum Men 8 mg iron- 200 mcg-600 mcg tablet 1 tab PO DAILY ferrous sulfate 325 mg (65 mg iron) tablet 325 mg PO DAILY cyanocobalamin (vitamin B-12) 1,000 mcg/mL kit 1,000 mcg subcut .[id number] methadone [Dolophine] 10 mg tablet 20 mg PO HS Patient Comments: Pt. states he takes this medication 0900pm 0200am 0400am Intralipid 20 % Emulsion 50 g IVPB DAILY Qty: 0 0RF nicotine [Nicoderm CQ] 14 mg/24 hr Patch 24 Hour 1 patch TRANSDERMAL DAILY diclofenac sodium [Voltaren] 1 % Gel 2 - 4 g TOPICAL QID PRN (Reason: Hand pain) naloxone [Narcan] 4 mg/actuation [place],Non-Aerosol 1 spray INTRANASAL Q3M colchicine 0.6 mg capsule 0.6 mg PO BID Qty: 28 0RF omeprazole 20 mg capsule,delayed release(DR/EC) 20 mg PO BID Qty: 28 0RF ibuprofen 600 mg tablet 600 mg PO TID Qty: 42 0RF Discharge Instructions Additional Instructions: You have decided to leave AGAINST MEDICAL ADVICE. The medical advice is that you stay inpatient in the hospital for monitoring and identification of the s ource of your infection. Please return first thing in the morning for repeat dose of antibiotics while we are waiting on the blood culture results. Return to emergency care immediately if you develop new concerning symptoms, difficulty breathing, episodes of passing out, weakness, or if you are very worried and need to be rechecked again immediately HPI General Date/Time Provider Initiated Documentation: 04/16/24 10:02 . Related Data Home Medications Medication Instructions Recorded Confirmed diphenoxylate-atropine 2.5 4 tab PO TID 12/08/20 04/16/24 mg-0.025 mg tablet (Lomotil) diclofenac sodium 1 % topical gel 2 - 4 g topical QID PRN Hand pain 02/07/21 04/16/24 (Voltaren) naloxone 4 mg/actuation nasal 1 spray intranasal Q3M 02/07/21 04/16/24 spray (Narcan) nicotine 14 mg/24 hr daily 1 patch transdermal DAILY 02/07/21 04/16/24 transdermal patch (Nicoderm CQ) hydrocodone 10 mg-acetaminophen 2 tab PO Q8H PRN 03/23/21 04/16/24 325 mg tablet ondansetron HCl 4 mg tablet 4 mg PO Q6H PRN 03/23/21 04/16/24 (Zofran) cyanocobalamin (vitamin B-12) 1,000 mcg subcut .[id number] 10/09/22 04/16/24 1,000 mcg/mL injection kit ferrous sulfate 325 mg (65 mg 325 mg PO DAILY 10/09/22 04/16/24 iron) tablet multivit,Ca,min-iron 8 mg-folic 1 tab PO DAILY 10/09/22 04/16/24 acid 200 mcg-lycopene 600 mcg tablet (Centrum Men) methadone 10 mg tablet (Dolophine) 20 mg PO HS 10/23/22 04/16/24 fat emulsion 20 % intravenous 50 g IVPB DAILY #0 mL 03/28/23 04/16/24 (Intralipid) colchicine 0.6 mg capsule 0.6 mg PO BID #28 caps 07/26/23 04/16/24 ibuprofen 600 mg tablet 600 mg PO TID #42 tabs 07/26/23 04/16/24 omeprazole 20 mg capsule,delayed 20 mg PO BID #28 caps 07/26/23 04/16/24 release Previous Rx's Medication Instructions Recorded fat emulsion 20 % intravenous 50 g IVPB DAILY #0 mL 03/28/23 (Intralipid) colchicine 0.6 mg capsule 0.6 mg PO BID #28 caps 07/26/23 ibuprofen 600 mg tablet 600 mg PO TID #42 tabs 07/26/23 omeprazole 20 mg capsule,delayed 20 mg PO BID #28 caps 07/26/23 release Allergies Allergy/AdvReac Type Severity Reaction Status Date / Time No Known Allergies Allergy Verified 04/16/24 10:01 General Stated Complaint: Fever GENET: 3 Course Vital Signs Vital signs: Vital Signs Temperature 37.1 C 04/16/24 09:56 Pulse 84 04/16/24 09:56 Respiratory Rate 18 04/16/24 09:56 Blood Pressure 147/97 H 04/16/24 09:56 Pulse Oximetry 99 04/16/24 09:56 Temperature 37.1 C 04/16/24 09:56 Temperature Source Oral 04/16/24 09:56 Pulse 84 04/16/24 09:56 Respiratory Rate 18 04/16/24 09:56 Respiratory Effort Normal 04/16/24 10:01 Blood Pressure 147/97 H 04/16/24 09:56 Blood Pressure Position Sitting 04/16/24 09:56 Pulse Oximetry 99 04/16/24 09:56 Oxygen Delivery Method Room Air 04/16/24 09:56 Oxygen Flow Rate 0 04/16/24 09:56 Lab/Test Results Lab/Test Results: 04/16/24 10:15 Blood Blood Culture - Pending 04/16/24 10:04 Blood Blood Culture - Pending Laboratory Tests Range/Units 04/16/24 10:15 WBC (4.4-10.8) 10^3/uL 8.77 RBC (4.36-5.78) 10^6/uL 4.40 Hgb (13.5-17.5) g/dL 13.7 Hct (40.0-50.0) % 40.2 MCV (80-95) fL 91 MCH (27.0-33.0) pg 31.1 MCHC (32.0-36.0) % 34.1 RDW (11.8-14.1) % 13.2 Plt Count (130-400) 10^3/uL 236 MPV (8.0-11.0) fL 11.3 H Immature Gran % % 0.2 Neutrophils % % 68.2 Lymphocytes % % 22.7 Monocytes % % 7.2 Eosinophils % % 1.1 Basophils % % 0.6 Nucleated RBC % (0.0-0.3) % 0.0 Absolute Neutrophils (1.2-6.7) 10^3/uL 5.98 Absolute Lymphocytes (1.2-3.4) 10^3/uL 1.99 Absolute Monocytes (0.1-0.8) 10^3/uL 0.63 Absolute Eosinophils (0.0-0.7) 10^3/uL 0.10 Absolute Basophils (0.0-0.2) 10^3/uL 0.05 VBG Lactate (0.6-1.4) mmol/L 1.1 Medical Decision Making Krishan is a 58-year-old male with history of multiple abdominal surgeries due to Crohn's disease with ostomy and indwelling catheter for TPN who presents to the emergency department for evaluation of fever. He reports that he started having shaking chills on Sunday (4 days ago), has had sweats since then accompanied by headache associated with fever. He has checked his temperature, has been between 101 02 for the last couple of days. He was advised to come to the emergency department by his PCP for evaluation to rule out sepsis. He de nies vision changes, new congestion, sore throat, change in baseline cough, chest pain, shortness of breath, change in baseline abdominal pain, change in ostomy output or urine output, dysuria, rashes. No known ill contacts. Physical exam reassuring. Patient is alert and interactive, in no acute distress. Abdomen is soft, tender to palpation throughout, this is unchanged per baseline according to patient. Normoactive bowel sounds. Easy work of breathing, lung sounds clear bilaterally. Normal heart sounds. Moist mucous membranes. DDx includes but is not limited to occult infection such as pneumonia, UTI, indwelling catheter infection, intraabdominal infection I independently interpreted the following tests: CBC, CMP, lactate, and urine all reassuring. Blood culture results pending. CXR and CT abd/pelvis reassuring, no acute findings. There is significant concern for infection of indwelling line based on patient's history despite reassuring bloodwork. Advise admission for IV abx and likely replacement of TPN catheter. Pt is not agreeable with this plan of care, says he would like to go home to arrange for care for his dog. He acknowledges the risks associated with leaving the hospital AMA, is agreeable to receiving IV abx prior to departure. He does intend to return tomorrow morning, says he is open to having the catheter changed if necessary but not tonight. 2 g Rocephin given for probable indwelling catheter infection. Reviewed red flags indicating need for pt to return to care immediately, including new symptoms/changes to symptoms. 1. I explained the current situation and condition to the patient. 2. I explained the recommended treatment for this condition -inpatient admission for IV antibiotics while awaiting culture results. 3. I explained the risk of not having the recommended treatment -, permanent disability, loss of lifestyle and independence 4. The patient understands this information has no questions, and repeated back this information. 5. The patient states that they need to leave and will return first thing in the morning for repeat antibiotics while awaiting culture results. He is open to having indwelling catheter replaced if needed, but is not ready to stay in the hospital overnight tonight. 6. Mental status is lucid and the patient has decision-making capacity. 7. Patient is agreeable to leaving AMA after receiving first dose of IV Rocephin. Imaging Data Radiologic Study: Radiologist's impression: Exam(s) CT ABDOMEN PELVIS W EXAM: CT ABDOMEN PELVIS W CLINICAL HISTORY: fever, h/o abd surgeries. TECHNIQUE: Imaging Protocol: Axial computed tomography images with coronal and sagittal reformatted images were created and reviewed CONTRAST MATERIAL: Intravenous: Omnipaque 350 Contrast volume:100 ml Oral: / no COMPARISON: CT CT ABDOMEN PELVIS W from 09/22/2022 FINDINGS: ABDOMEN and PELVIS: Lung Bases: No acute findings. Liver: Normal density. No suspicious mass. Gallbladder and biliary tract: No radiodense calculus. No biliary dilation. Pancreas: Normal density. No abnormal calcifications or inflammatory process. No evidence of mass. Spleen: Normal. Kidneys: Normal size, contour and axis. No radiodense stones. No obstructive uropathy. No suspicious masses seen. Adrenal glands: No masses seen. Vasculature: Abdominal aorta non-dilated. Soft tissues: Right-sided ileostomy is unremarkable. Bladder: No gross wall thickening. No calculi.No focal mass. Bowel: No obstruction. No bowel wall thickening. Status post colectomy. Peritoneal cavity: No ascites. No focal collection. No mesenteric inflammatory response. Bones: Stable appearance of sclerotic focus in the left ilium. Ankylosis of the sacroiliac joints again noted. Reproductive organs: Metallic densities in prostate. Lymph nodes: No pathologically enlarged lymph nodes. IMPRESSION:: No acute abnormality in the abdomen or pelvis. Radiologic Study #2: Radiologist's impression: Exam(s) XR CHEST 2V PA LATERAL EXAM: XR CHEST 2V PA LATERAL CLINICAL HISTORY: fever TECHNIQUE: 2D digital imaging was performed. Two views. COMPARISON: CT CT CHEST PE CTA from 07/26/2023 CR XR PORTABLE CHEST AP from 07/26/2023 FINDINGS: HEART: Normal size. Aorta: Not dilated. PULMONARY VASCULATURE: Normal. LUNGS: Clear. PLEURAL SPACE: No pleural effusion or pneumothorax. BONE:Unremarkable for age. Soft tissues: Right-sided catheter again noted with tip in lower SVC IMPRESSION: No acute abnormality. Quality:SDOH Health Related Social Needs: No Data to Display PFSH All Active Problems (Updated 04/16/24 @ 12:39 by Zee Gandhi) Fever (Acute) Chronic prescription opiate use (Chronic) Short gut syndrome (Chronic) Malnutrition (Acute) Internal derangement of right knee (Acute) Osteoarthritis of right knee (Acute) Vitamin B12 deficiency (Acute) Fatigue (Acute) Dyspnea on exertion (Acute) Depression (Chronic) Raynaud's disease (Acute) Postprandial vomiting (Acute) Smoker (Acute) Abdominal pain (Acute) Vision changes (Acute) Sinus pain (Acute) Joint pain (Acute) Syncope (Chronic) Ileostomy status (Chronic) Crohn's disease (Chronic) History of total right knee replacement (Acute 02/09/21) Arthrofibrosis of total knee arthroplasty (Acute) RIGHT S/P Manipulation: 04/20/2021 Pain in elbow joint (Acute) Ulnar abutment syndrome of both wrists (Acute) Degenerative arthritis of carpometacarpal joint of thumb (Acute) Disease of gallbladder, unspecified (Acute) Elevated liver function tests (Acute) Methadone use (Acute) Unintended weight loss (Chronic) Liver mass (Acute) Medical History (Updated 04/16/24 @ 12:39 by Zee Gandhi) Infected cyst of skin tx with abx Preventative health care Encounter for therapeutic drug level monitoring Preoperative examination Atrial enlargement, left Situational depression Dyspnea Neck pain Radiculopathy affecting upper extremity Other postprocedural complications and disorders of genitourinary system post procedure testicular pain Hip pain Gallstones Tongue lesion Anemia Hematuria Pelvic pain Other complications following infusion, transfusion and therapeutic injection, subsequent encounter Right knee pain RBBB RUQ pain Complaint of pain of toe Bilateral thumb pain Elevated PSA Pain of knee joint on movement Paresthesia Breast lump History of pneumonia Pulmonary nodule Prostate cancer Surgical History (Updated 03/26/23 @ 18:12 by Shantell Mccoy NP) History of creation of ostomy had in situ since 1988 Hx of total knee arthroplasty Cataract extraction status Social History Smoking/Tobacco Use Status: Current every day Tobacco Type: cigarettes Tobacco: How many years used: 44 Smoking risk assessment performed?: Yes Alcohol Intake: never Drug use: Socially Substance use type: former substance user and marijuana Household members: none Housing: apartment current occupation: Disabled Current gender identity: male Do you feel safe at home: Yes Do you feel safe in your relationship?: Yes Additional Social history: lives alone
[2024-04-16 10:52] LABS: COVID-19 PCR Negative (Negative); Influenza A PCR Negative (Negative); Influenza B PCR Negative (Negative); RSV PCR Negative (Negative)
[2024-04-16 10:53] LABS: Source Nasopharynx
[2024-04-16 10:54] LABS: ALT 55 U/L (16-63); AST 32 U/L (15-37); Albumin 3.5 g/dL (3.4-5.0); Alkaline Phosphatase 208 U/L (46-116); Anion Gap 10.3 mmol/L (3-11); BUN 22 mg/dL (7-18); Bilirubin, Total 0.5 mg/dL (0.2-1.0); CO2 31.7 mmol/L (21.0-32.0); CREATININE 1.1 mg/dL (0.70-1.30); Calcium 8.8 mg/dL (8.5-10.1); Chloride 97 mmol/L (98-107); Estimated GFR 77.33 (mL/min/1.73m2); Glucose 138 mg/dL (74-106); Potassium 3.4 mmol/L (3.5-5.1); Sodium 139 mmol/L (136-145); Total Protein 7.2 g/dL (6.4-8.2)
--- NOTE | 2024-04-16 11:05 | DI.CT_ITS ---
Exam(s) CT ABDOMEN PELVIS W EXAM: CT ABDOMEN PELVIS W CLINICAL HISTORY: fever, h/o abd surgeries. TECHNIQUE: Imaging Protocol: Axial computed tomography images with coronal and sagittal reformatted images were created and reviewed CONTRAST MATERIAL: Intravenous: Omnipaque 350 Contrast volume:100 ml Oral: / no COMPARISON: CT CT ABDOMEN PELVIS W from 09/22/2022 FINDINGS: ABDOMEN and PELVIS: Lung Bases: No acute findings. Liver: Normal density. No suspicious mass. Gallbladder and biliary tract: No radiodense calculus. No biliary dilation. Pancreas: Normal density. No abnormal calcifications or inflammatory process. No evidence of mass. Spleen: Normal. Kidneys: Normal size, contour and axis. No radiodense stones. No obstructive uropathy. No suspicious masses seen. Adrenal glands: No masses seen. Vasculature: Abdominal aorta non-dilated. Soft tissues: Right-sided ileostomy is unremarkable. Bladder: No gross wall thickening. No calculi.No focal mass. Bowel: No obstruction. No bowel wall thickening. Status post colectomy. Peritoneal cavity: No ascites. No focal collection. No mesenteric inflammatory response. Bones: Stable appearance of sclerotic focus in the left ilium. Ankylosis of the sacroiliac joints ag ain noted. Reproductive organs: Metallic densities in prostate. Lymph nodes: No pathologically enlarged lymph nodes. IMPRESSION:: No acute abnormality in the abdomen or pelvis. RADIATION DOSE DELIVERED: 850.33mGy.cm Total DLP DATA REPOSITORY: All CT scans at this facility are submitted to the National Radiology Data Registry (NRDR) Dose Index Registry (DIR) with the [employer] ([employer]). RADIATION OPTIMIZATION: All CT scans at this facility use at least one of these dose optimization te chniques: automated exposure control; mA and/or kV adjustment per patient size (includes targeted exa ms where dose is matched to clinical indication); or iterative reconstruction.
--- NOTE | 2024-04-16 11:20 | DI.RAD_ITS ---
Exam(s) XR CHEST 2V PA LATERAL EXAM: XR CHEST 2V PA LATERAL CLINICAL HISTORY: fever TECHNIQUE: 2D digital imaging was performed. Two views. COMPARISON: CT CT CHEST PE CTA from 07/26/2023 CR XR PORTABLE CHEST AP from 07/26/2023 FINDINGS: HEART: Normal size. Aorta: Not dilated. PULMONARY VASCULATURE: Normal. LUNGS: Clear. PLEURAL SPACE: No pleural effusion or pneumothorax. BONE:Unremarkable for age. Soft tissues: Right-sided catheter again noted with tip in lower SVC IMPRESSION: No acute abnormality. DATA REPOSITORY: RADIATION DOSE DELIVERED:
[2024-04-16] MEDS: Normal Saline - Diluent 50 ML VIAL IJ (11:46)
[2024-04-16] MEDS: Omnipaque 350 MG/ML 100 ML BTL IJ (11:47)
[2024-04-16 12:18] LABS: Bilirubin Negative (Negative); Blood Negative (Negative); Clarity Clear (Clear); Glucose Negative (Negative); Ketones Negative (Negative); Leukocyte Esterase Negative (Negative); Nitrite Negative (Negative); Specific Gravity 1.015 (1.005-1.025); Urobilinogen 0.2 mg/dL (Up to 0.2)
[2024-04-16] MEDS: cefTRIAXone 2 GM/50 ML BAG IVPB (12:46)
[2024-04-16 12:47] VITALS: BP 142/86; PULSE 94; RESP 16; TEMP 36.6; O2SAT 98
--- NOTE | 2024-04-17 06:28 | NUR.NOTE ---
pt had + blood culture gram, cocci gpc message passed on to Dr Guerrier along with patient report.
== END 2024-04-16 12:56 | disposition left against medical advice (07) ==
PROVIDERS: Emergency Provider Nurse Practitioner Family; PCP Family Medicine
DX: R50.9 Fever, unspecified (principal); F17.210 Nicotine dependence, cigarettes, uncomplicated; Z53.29 Procedure and treatment not carried out because of patient's decision for other reasons; Z93.3 Colostomy status; Z97.8 Presence of other specified devices
CPT/HCPCS: 36415; 80053; 87040; 87077; 87637; 96374; 99285; 71046; 74177; 81003; 83605; 83735; 85025; 87186; 99284; J0696; J3490

== ENCOUNTER 2024-04-17 07:51 | Emergency (ER) | payer MEDICARE, SELFPAY ==
[2024-04-17 07:55] VITALS: BP 147/93; PULSE 84; RESP 96; TEMP 36.6; O2SAT 97
--- NOTE | 2024-04-17 08:27 | ED.GENADUL_ITS ---
Discharge Plan Disposition Patient Disposition: Against Medical Advice Condition: Stable Discharge Details Clinical Impression: Bacteremia associated with intravascular line, Bacteremia Primary Care Provider: Natty Mckinney V ED Provider: Tatiana Rosas Home Meds and New Rx's Prescriptions: Continued ondansetron HCl [Zofran] 4 mg Tablet 4 mg PO Q6H PRN hydrocodone-acetaminophen 10-325 mg Tablet 2 tab PO Q8H PRN diphenoxylate-atropine [Lomotil] 2.5-0.025 mg tablet 4 tab PO TID Centrum Men 8 mg iron- 200 mcg-600 mcg tablet 1 tab PO DAILY ferrous sulfate 325 mg (65 mg iron) tablet 325 mg PO DAILY cyanocobalamin (vitamin B-12) 1,000 mcg/mL kit 1,000 mcg subcut .[id number] methadone [Dolophine] 10 mg tablet 20 mg PO HS Patient Comments: Pt. states he takes this medication 0900pm 0200am 0400am Intralipid 20 % Emulsion 50 g IVPB DAILY Qty: 0 0RF nicotine [Nicoderm CQ] 14 mg/24 hr Patch 24 Hour 1 patch TRANSDERMAL DAILY diclofenac sodium [Voltaren] 1 % Gel 2 - 4 g TOPICAL QID PRN (Reason: Hand pain) naloxone [Narcan] 4 mg/actuation Mathews,Non-Aerosol 1 spray INTRANASAL Q3M colchicine 0.6 mg capsule 0.6 mg PO BID Qty: 28 0RF omeprazole 20 mg capsule,delayed release(DR/EC) 20 mg PO BID Qty: 28 0RF ibuprofen 600 mg tablet 600 mg PO TID Qty: 42 0RF Discharge Instructions Instructions: Bacteremia (ED) Additional Instructions: We are concerned that you have bacteria growing in your blood. This is what is causing your fevers. This is likely associated with your indwelling line. You are choosing to leave AGAINST MEDICAL ADVICE but have agreed to return for line removal and planned admission with continued IV antibiotics. Surgery will be here at noon for line removal. Please do not eat or drink anything while you are out of the department. Please return as soon as you are able. Referrals: Natty Mckinney MD [Primary Care Provider] - [facility] General Date/Time Provider Initiated Documentation: 04/17/24 08:05 . Limitations to Documentation: no limitations . Information obtained by: patient, RN notes reviewed and old records reviewed . History of Present Illness 58 year old M presents to the emergency department with the chief complaint of bacteremia, Quality is described as other (he r eports low grade fever last night, otherwise feeling at baseline), Patient started experiencing this day(s) and it has been intermittent (intermittent fevers at home). No relieving factors improve symptom(s), No exacerbating factors reported . Patient notes fever/chills (fever, no chills, T max 99.7 last night); denies chest pain, cough, diaphoresis, headaches, loss of appetite (baseline, associated with long hx of crohns), nausea/vomiting, rash, shortness of breath, syncope and weakness. Patient did receive the following treatments prior to arrival, other (rocephin yesterday) Related Data Home Medications Medication Instructions Recorded Confirmed diphenoxylate-atropine 2.5 4 tab PO TID 12/08/20 04/17/24 mg-0.025 mg tablet (Lomotil) diclofenac sodium 1 % topical gel 2 - 4 g topical QID PRN Hand pain 02/07/21 04/17/24 (Voltaren) naloxone 4 mg/actuation nasal 1 spray intranasal Q3M 02/07/21 04/17/24 spray (Narcan) nicotine 14 mg/24 hr daily 1 patch transdermal DAILY 02/07/21 04/17/24 transdermal patch (Nicoderm CQ) hydrocodone 10 mg-acetaminophen 2 tab PO Q8H PRN 03/23/21 04/17/24 325 mg tablet ondansetron HCl 4 mg tablet 4 mg PO Q6H PRN 03/23/21 04/17/24 (Zofran) cyanocobalamin (vitamin B-12) 1,000 mcg subcut .[id number] 10/09/22 04/17/24 1,000 mcg/mL injection kit ferrous sulfate 325 mg (65 mg 325 mg PO DAILY 10/09/22 04/17/24 iron) tablet multivit,Ca,min-iron 8 mg-folic 1 tab PO DAILY 10/09/22 04/17/24 acid 200 mcg-lycopene 600 mcg tablet (Centrum Men) methadone 10 mg tablet (Dolophine) 20 mg PO HS 10/23/22 04/17/24 fat emulsion 20 % intravenous 50 g IVPB DAILY #0 mL 03/28/23 04/17/24 (Intralipid) colchicine 0.6 mg capsule 0.6 mg PO BID #28 caps 07/26/23 04/17/24 ibuprofen 600 mg tablet 600 mg PO TID #42 tabs 07/26/23 04/17/24 omeprazole 20 mg capsule,delayed 20 mg PO BID #28 caps 07/26/23 04/17/24 release Previous Rx's Medication Instructions Recorded fat emulsion 20 % intravenous 50 g IVPB DAILY #0 mL 03/28/23 (Intralipid) colchicine 0.6 mg capsule 0.6 mg PO BID #28 caps 07/26/23 ibuprofen 600 mg tablet 600 mg PO TID #42 tabs 07/26/23 omeprazole 20 mg capsule,delayed 20 mg PO BID #28 caps 07/26/23 release Allergies Allergy/AdvReac Type Severity Reaction Status Date / Time No Known Allergies Allergy Verified 04/17/24 07:59 General Stated Complaint: Recheck GENET: 4 Review of Systems Constitutional Constitutional: Reports as per HPI, Denies chills, Reports fever(s) and Denies headache(s) Eyes Eyes: Reports as per HPI and Denies change in vision ENT Ears, Nose, Mouth, and Throat: Reports as per HPI and Denies headache(s) Cardiovascular Cardiovascular: Reports as per HPI, Denies chest pain, Denies lightheadedness, Denies radiating jaw, neck or arm pain, Denies palpitations, Denies dyspnea and Denies dyspnea on exertion Respiratory Respiratory: Reports as per HPI, Denies chest congestion, Denies cough, Denies dyspnea and Denies dyspnea on exertion Gastrointestinal Gastrointestinal: Reports as per HPI, Reports abdominal pain (chronic, unchanged), Denies change in bowel habits (chronic abnormality, associated with Crohns, no acute radha), Denies nausea and Denies vomiting Genitourinary Genitourinary: Reports as per HPI (no change in urinary habits) Integumentary/Breasts Skin/Breast: Reports as per HPI and Denies rash Neurologic Neurologic: Reports as per HPI and Denies headache(s) Endocrine Endocrine: Denies palpitations Exam Const General: cooperative, healthy appearing, comfortable, no acute distress, well developed and well groomed Nutritional Appearance: average body habitus and well nourished Orientation: alert and awake [facility] Head: normal to inspection Mouth: oral mucosae normal, lip normal, tongue normal and moist mucous membranes Eyes General: appearance normal, both eyes and all related structures Resp Effort & Inspection: normal respiratory effort, able to speak in complete sentences and no respiratory distress Auscultation: clear to auscultation bilaterally, no rales, no rhonchi and no wheezes Cardio Rate: regular rate Rhythm: regular rhythm Heart Sounds: S1 normal and S2 normal GI Inspection: scar (large midline incision noted) Skin General skin exam: no rashes or lesions noted Neuro General: patient alert and patient awake Cognition: normal cognition Speech: speech normal Gait: normal gait Psych Appearance: grossly normal and well kempt Mental Status: mental status grossly normal Speech and Movement: speech and movement normal Insight: insight good Course Vital Signs Vital signs: Vital Signs Temperature 36.6 C 04/17/24 07:55 Pulse 84 04/17/24 07:55 Respiratory Rate 96 H 04/17/24 07:55 Blood Pressure 147/93 H 04/17/24 07:55 Pulse Oximetry 97 04/17/24 07:55 Temperature 36.6 C 04/17/24 07:55 Temperature Source Temporal Artery Scan 04/17/24 07:55 Pulse 84 04/17/24 07:55 Respiratory Rate 96 H 04/17/24 07:55 Blood Pressure 147/93 H 04/17/24 07:55 Pulse Oximetry 97 04/17/24 07:55 Oxygen Delivery Method Room Air 04/17/24 07:55 Oxygen Flow Rate 0 04/17/24 07:55 Medical Decision Making Patient is a pleasant 58-year-old male with past medical history significant for Crohn's, malnutrition, left atrial enlargement, gallstones, anemia, right bundle branch block, prostate cancer, currently receiving TPN via right sided internal jugular catheter, presenting as instructed, for repeat dosing of antibiotics. Patient was seen here yesterday, note was reviewed, he was given a dose of Rocephin and patient left AGAINST MEDICAL ADVICE as he needed to care for his dog. He was advised to come back this morning, presents for another dose of antibiotics. He reports that last night he had some mild fevers, Tmax of 99 7. States that otherwise has been feeling at his baseline. He has not been using his line given concerns for potential infection. Does report that he is able to hydrate orally although he drinks primarily coffee. No change in abdominal pain or bowel habits although he does report chronic abdominal pain and diarrhea associated with his Crohn's. Blood cultures obtained yesterday grew out gram-positive cocci. Concern primarily for MRSA. Will begin IV vancomycin as well as IV hydration. Discussed disposition at length with the patient. Patient agrees to temporary admission, he is very hesitant to stay any longer than that. I will consult with general surgery or as they are the ones that placed the line. I did attempt to get cultures from the line but patient reports that they have never been able to draw off of the line so these might be able to be obtained. Plan to repeat baseline labs. On exam, patient appears nontoxic. Appreciate any abnormalities in cardiac exam, no murmurs or gallops. No rash, no petechial lesions. Well-healed surgical incisions. Patient is afebrile. Does not appear septic at this time. Consulted with general surgery. Advised they will come to remove the line at noon today. We did discuss the patient's wish to be able to be at home. She had advised a minimum 2wk IV abx, 6 wks prior to placement of another line. She advised during admission patient would need to undergo Echo, IV abx. The patient's wish to be at home and short admission time, echo was obtained in the ER today. I have also referred him to palliative care which patient is agreeable to. His wishes to be able to continue to have treatment here through the infusion suite but will not remain admitted for any of the time. Echo ob tained, patient received 1 Liter of fluid, vancomycin. Labs are largely unremarkable, no elevated lactate. Patient is choosing to leave AGAINST MEDICAL ADVICE to be will to bring his dog to another person's house with a department stay overnight. He will then return prior to intervention with general surgery as noted above. He is agreeable to admission at that time. Since patient already has an indwelling line, I do not see a problem with bleeding IV in proliferate, particularly as the patient has a long history of medical illnesses and may be difficult sick. He denies IV drug use, do not feel that he is a risk for this, care for IV was discussed with the patient. Patient is aware of the risks of leaving AGAINST MEDICAL ADVICE but is adamant about going to take care of the dog and will return immediately after for continued management. Patient demonstrates capacity to be able to make this decision. Quality:SDOH Health Related Social Needs: No Data to Display PFSH All Active Problems (Updated 04/17/24 @ 10:20 by NITIN Tovar) Bacteremia (Acute) Bacteremia associated with intravascular line (Acute) Fever (Acute) Chronic prescription opiate use (Chronic) Short gut syndrome (Chronic) Malnutrition (Acute) Internal derangement of right knee (Acute) Osteoarthritis of right knee (Acute) Vitamin B12 deficiency (Acute) Fatigue (Acute) Dyspnea on exertion (Acute) Depression (Chronic) Raynaud's disease (Acute) Postprandial vomiting (Acute) Smoker (Acute) Abdominal pain (Acute) Vision changes (Acute) Sinus pain (Acute) Joint pain (Acute) Syncope (Chronic) Ileostomy status (Chronic) Crohn's disease (Chronic) History of total right knee replacement (Acute 02/09/21) Arthrofibrosis of total knee arthroplasty (Acute) RIGHT S/P Manipulation: 04/20/2021 Pain in elbow joint (Acute) Ulnar abutment syndrome of both wrists (Acute) Degenerative arthritis of carpometacarpal joint of thumb (Acute) Disease of gallbladder, unspecified (Acute) Elevated liver function tests (Acute) Methadone use (Acute) Unintended weight loss (Chronic) Liver mass (Acute) Medical History (Updated 04/17/24 @ 10:20 by NITIN Tovar) Infected cyst of skin tx with abx Preventative health care Encounter for therapeutic drug level monitoring Preoperative examination Atrial enlargement, left Situational depression Dyspnea Neck pain Radiculopathy affecting upper extremity Other postprocedural complications and disorders of genitourinary system post procedure testicular pain Hip pain Gallstones Tongue lesion Anemia Hematuria Pelvic pain Other complications following infusion, transfusion and therapeutic injection, subsequent encounter Right knee pain RBBB RUQ pain Complaint of pain of toe Bilateral thumb pain Elevated PSA Pain of knee joint on movement Paresthesia Breast lump History of pneumonia Pulmonary nodule Prostate cancer Surgical History (Updated 03/26/23 @ 18:12 by Shantell Mccoy NP) History of creation of ostomy had in situ since 1988 Hx of total knee arthroplasty Cataract extraction status Social History Smoking/Tobacco Use Status: Current every day Tobacco Type: cigarettes Tobacco: How many years used: 44 Smoking risk assessment performed?: Yes Alcohol Intake: never Drug use: Socially Substance use type: former substance user and marijuana Household members: none Housing: apartment current occupation: Disabled Current gender identity: male Do you feel safe at home: Yes Do you feel safe in your relationship?: Yes Additional Social history: lives alone
--- NOTE | 2024-04-17 08:30 | DI.US_ITS ---
APPROVED REPORT EXAM: Comprehensive 2D, Doppler, and color-flow Echocardiogram Patient Location: In-Patient Room/Bed: ER [employer] Analyst: Breanne Cabrera RDCS (AE) Indications: Bacteremia Other Information Study Quality: Adequate Conclusion Normal left ventricular wall thickness and chamber size. Ejection fraction is 55%. Wall motion is n ormal Normal right ventricular size and function Both atria are normal in size There is no structural or hemodynamically significant valvular disease Wall motion Left Ventricle The left ventricle is normal size. The left ventricular systolic function is normal. The left ventric ular ejection fraction is within the normal range. There is normal left ventricular wall thickness. T here is normal LV segmental wall motion. There is no ventricular septal defect visualized. LVEF is 55 %. Right Ventricle The right ventricle is normal size. The right ventricular systolic function is normal. Atria The left atrium size is normal. The right atrium size is normal. The interatrial septum is intact wit h no evidence for an atrial septal defect. Aortic Valve The aortic valve is normal in structure. Aortic valve is trileaflet. There is no aortic valvular sten osis. No aortic regurgitation is present. Mitral Valve The mitral valve is normal in structure. No evidence of mitral valve stenosis. Trace mitral regurgita tion. Tricuspid Valve The tricuspid valve is normal in structure. There is no tricuspid valve stenosis. Trace tricuspid reg urgitation. The RVSP is 17.6 mmHg. Pulmonic Valve The pulmonary valve is normal in structure. There is no pulmonic valvular stenosis. There is no pulmo martha valvular regurgitation. Great Vessels The aortic root is normal in size. The ascending aorta is normal in size. Aortic arch is normal in ca liber. IVC is normal in size and collapses >50% with inspiration. Pericardium There is no pericardial effusion. 2D Dimensions IVSD d PLAX 0.85 cm M: 0.6-1.2 Ao Root d 3.01 cm M: 3.1 - 3.7 LVPW d PLAX 0.89 cm M: 0.6 - 1.2 Ao Asc Diam d 3.38 cm M: 2.6 - 3.4 LVID d PLAX 4.85 cm M: 4.2 - 5.8 LVDs 3.43 cm M: 2.5 - 4.0 LV EF Teichholz 56.0 % FS 29.25 % LV EDV (Teich) 110.4 mL LV ESV (Teich) 48.6 mL Auto EF LV EDV A4C 115.3 mL LV EDV A2C 122.0 mL LV EDV BP 119.1 mL LV ESV A4C 52.1 mL LV ESV A2C 53.8 mL LV ESV BP 53.7 mL LVEF(%) A4C 54.8 % LVEF(%) A2C 55.9 % LVEF(%) BP 54.9 % LV SV A4C 63.2 ml LV SV A2C 68.2 ml LV SV BP 65.4 ml LV CO A4C 4.6 L/min LV CO A2C 5.4 L/min LV CO BP 5.0 L/min HR A4C 72.58 BPM HR A2C 79.30 BPM LV EDV Index (BP) LA Volume LA Length A4C 6.8 cm LA Length A2C 5.7 cm LA Area A4C s 22.52 cm2 LA Area A2C s 15.83 cm2 LA Vol A4C A-L 63.76 mL LA Vol A2C A-L 37.01 mL LA Vol Biplane A-L 52.7 mL LA Vol/BSA A4C A-L LA Vol/BSA A2C A-L LA Vol/BSA BP A-L 25.7 mL/m2 LA Vol A4C MOD 58.4 mL LA Vol A2C MOD 35.6 mL LA Vol BP MOD 48.9 mL RA Volume RA Area A4C 13.1 cm2 RA ESV A4C (A-L) 28.4mL RA Vol/BSA A4C A-L RA Length A4C 5.1 cm RA ESV A4C (MOD) 27.3mL LV Diastology MV E' medial 0.092 (>0.07 m/s) MV E Vmax 0.81 (0.4-1.3 m/s) MV E/E' MED 8.83 (<14) MV A Vmax 0.80 (0.4-1.3 m/s) MV E' lateral 0.118 (>0.1 m/s) E/A Ratio 1.0 MV E/E' LAT 6.89 (<14) MV E' Average 0.105 m/s MV E/E'(average) 7.74 Aortic Valve AoV Vmax 1.50 m/s LVOT Vmax 1.34 m/s AoV Peak Grad 9.0 mmHg LVOT Peak Grad 7.1 mmHg AoV Area (Vmax) 2.78 cm2 LVOT VTI 0.296 m AoV VTI 0.337 m LVOT Mean Grad 3.6 mmHg AoV Mean Jefferson. 1.01 m/s LVOT SV 91.94 mL AoV Mean Grad 4.7 mmHg LVOT Diam s 1.95 cm AoV Area (VTI) 2.73 cm2 Velocity Ratio 0.89 Mitral Valve MV DT 335 (160-240 msec) MV Vmax TIPS 0.96 m/s MV Mean Grad 1.9 (<2mmHg) MV VTI 0.336 m Pulmonary Valve PV Vmax 1.06 (0.5-1.5 m/s) RVOT Vmax 0.95 m/s PV Peak Grad 4.5 mmHg RVOT Peak Gr. 3.6 mmHg PV Mean Jefferson 0.75 m/s RVOT VTI 0.200 m PV Mean Grad 2.6 mmHg RVOT Mean Gr. 1.7 mmHg Tricuspid Valve RA Pressure 3.00 mmHg TR Vmax 1.91 m/s TV S' 0.15 m/s TR Peak Grad 14.6 mmHg RVSP (TR) 17.6 mmHg
[2024-04-17 08:32] LABS: Abs Immature Grans 0.02 10^3/uL (0.0-0.06); Absolute Basophil Count 0.03 10^3/uL (0.0-0.2); Absolute Eosinophil Count 0.13 10^3/uL (0.0-0.7); Absolute Lymphocyte Count 1.82 10^3/uL (1.2-3.4); Absolute Monocyte Count 0.69 10^3/uL (0.1-0.8); Absolute Neutrophil Count 4.83 10^3/uL (1.2-6.7); Basophils % 0.4 %; Eosinophils % 1.7 %; HCT 40.6 % (40.0-50.0); HGB 13.6 g/dL (13.5-17.5); Immature Grans % 0.3 %; Lymphocytes % 24.2 %; MCH 30.8 pg (27.0-33.0); MCHC 33.5 % (32.0-36.0); MCV 92 fL (80-95); MPV 10.7 fL (8.0-11.0); Monocytes % 9.2 %; Neutrophils % 64.2 %; Platelet Count 241 10^3/uL (130-400); RBC 4.41 10^6/uL (4.36-5.78); RDW 13.2 % (11.8-14.1); RDW-SD 45.1 fL; WBC 7.52 10^3/uL (4.4-10.8)
[2024-04-17 08:33] LABS: Lactate 1.2 mmol/L (0.6-1.4)
[2024-04-17] MEDS: Normal Saline 1,000 ML 1000 ML IV (08:33)
[2024-04-17] MEDS: VANCOMYCIN/WATER (PEG) 1.25 GM/250 ML BAG IVPB (08:49)
[2024-04-17 09:01] LABS: ALT 58 U/L (16-63); AST 36 U/L (15-37); Albumin 3.5 g/dL (3.4-5.0); Alkaline Phosphatase 207 U/L (46-116); Anion Gap 6.5 mmol/L (3-11); BUN 20 mg/dL (7-18); Bilirubin, Total 0.8 mg/dL (0.2-1.0); CO2 32.5 mmol/L (21.0-32.0); CREATININE 1.3 mg/dL (0.70-1.30); Calcium 9.1 mg/dL (8.5-10.1); Chloride 98 mmol/L (98-107); Estimated GFR 63.28 (mL/min/1.73m2); Glucose 168 mg/dL (74-106); Potassium 3.4 mmol/L (3.5-5.1); Sodium 137 mmol/L (136-145); Total Protein 7.2 g/dL (6.4-8.2)
[2024-04-17 09:18] LABS: Procalcitonin 0.2 ng/mL
--- NOTE | 2024-04-17 13:21 | W.SURGCON ---
Date of service: 04/17/24 Time of Service: 13:21 Assessment and Plan Assessment and plan (1) Chronic prescription opiate use: Status: Chronic (2) Raynaud's disease: Status: Acute (3) Malnutrition: Status: Acute (4) Postprandial vomiting: Status: Acute (5) Crohn's disease: Status: Chronic (6) Short gut syndrome: Status: Chronic (7) Bacteremia associated with intravascular line: Status: Acute Assessment and plan: - Groshong removed and tip sent for culture -Patient will need 2 to 6 weeks of IV antibiotics depending on his organism and if there is any other associated infections. Daptomycin is adjusted by hospitalist. We will need to arrange with care management for 2 weeks of IV antibiotics -The patient will have a midline catheter placed by anesthesia. He will need to do low-dose TPN for the next 2 weeks. He cannot sustain himself/he cannot take in any oral nutrition. -We will have patient follow-up in 2-6 weeks with general surgery once infection is cleared for placement of another Groshong for TPN Follow-up in surgery clinic June 02 at 10:30 AM. I have not seen the results of the echo he had today .pamela 45 mins spent in direct pt care and 30 in non face to face time (8) Smoker: Status: Acute History of Present Illness Narrative: Mr. Monte is a 58-year-old male well-known to the surgical service. He has a longstanding history of Crohn's and has had multiple operations. He has been left with short gut syndrome and is sustaining on TPN. He does follow with GI at [facility] for the TPN. He has a right-sided IJ Groshong that he has had for over a year. He was starting to have fever and chills and had cultures done for the line which did grow out staph. Here is here today for line removal. However he cannot take in enough fluids and calories to sustain himself. So we are really going to require some type of intermediate access until we get his back to bacteremia cleared up. Preliminary cultures show gram-positive cocci in clusters. He has not had a MRSA infection previously. We do not want to place a midline catheter so that he can give himself low-dose TPN and for IV antibiotics. We will need to get both of these ordered and set up for him. He does chronic TPN every night. He does have supplies and is familiar how to do this. He will just need to get the products ordered for him. -So he will require 2 weeks of IV daptomycin -2 weeks of the low dose TPN. He will use the same formulation TPN and lipids that he is currently getting/that was ordered by pharmacy and myself. At that point we will repeat cultures and make sure his bloodstream infection is cleared. Then we can place a Groshong and then he can resume with his regular TPN dosing. We will remove the right sided Groshong today. Either anesthesia or PICC team will place a line today for access. He currently has an IV for access in the ER. He did receive a dose of vancomycin. He is in the process of getting an echo Today patient feels good. He has no nausea or vomiting. He has no fever or chills today. He has no pain at the injection site. He has no blood clots. He has no abdominal pain as long as he does not eat. Any foods that he eats turning into a ball of barbed wire about 20 to 30 minutes after eating. Review of Systems All systems reviewed & are unremarkable except as noted in HPI and below PFSH All Active Problems Bacteremia (Acute) Bacteremia associated with intravascular line (Acute) Fever (Acute) Chronic prescription opiate use (Chronic) Short gut syndrome (Chronic) Malnutrition (Acute) Internal derangement of right knee (Acute) Osteoarthritis of right knee (Acute) Vitamin B12 deficiency (Acute) Fatigue (Acute) Dyspnea on exertion (Acute) Depression (Chronic) Raynaud's disease (Acute) Postprandial vomiting (Acute) Smoker (Acute) Abdominal pain (Acute) Vision changes (Acute) Sinus pain (Acute) Joint pain (Acute) Syncope (Chronic) Ileostomy status (Chronic) Crohn's disease (Chronic) History of total right knee replacement (Acute 02/09/21) Arthrofibrosis of total knee arthroplasty (Acute) RIGHT S/P Manipulation: 04/20/2021 Pain in elbow joint (Acute) Ulnar abutment syndrome of both wrists (Acute) Degenerative arthritis of carpometacarpal joint of thumb (Acute) Disease of gallbladder, unspecified (Acute) Elevated liver function tests (Acute) Methadone use (Acute) Unintended weight loss (Chronic) Liver mass (Acute) Medical History Infected cyst of skin tx with abx Preventative health care Encounter for therapeutic drug level monitoring Preoperative examination Atrial enlargement, left Situational depression Dyspnea Neck pain Radiculopathy affecting upper extremity Other postprocedural complications and disorders of genitourinary system post procedure testicular pain Hip pain Gallstones Tongue lesion Anemia Hematuria Pelvic pain Other complications following infusion, transfusion and therapeutic injection, subsequent encounter Right knee pain RBBB RUQ pain Complaint of pain of toe Bilateral thumb pain Elevated PSA Pain of knee joint on movement Paresthesia Breast lump History of pneumonia Pulmonary nodule Prostate cancer Surgical History History of creation of ostomy had in situ since 1988 Hx of total knee arthroplasty Cataract extraction status Social History Smoking/Tobacco Use Status: Current every day Tobacco Type: cigarettes Tobacco: How many years used: 44 Smoking risk assessment performed?: Yes Alcohol Intake: never Drug use: Socially Substance use type: former substance user and marijuana Household members: none Housing: apartment current occupation: Disabled Current gender identity: male Do you feel safe at home: Yes Do you feel safe in your relationship?: Yes Additional Social history: lives alone Exam Narrative Exam Narrative: PHYSICAL EXAM GENERAL APPEARANCE: Alert, healthy appearance, oriented, x 3,? in no acute distress HYDRATION: Well hydrated HEAD, EYES, EARS, NECK, THROAT: Head is normocephalic, pupils equal, round, reactive to light and accommodation, ocular movement intact, sclera clear and no jaundice. ?Dentition -edentulous Line site is clean dry and intact it is nontender. There is no surrounding erythema or edema or drainage. LUNGS: normal respiration/normal chest excursion. ?Clear to auscultation bilaterally. ?No wheeze. ?HEART: Regular rate and rhythm. no murmurs EXTREMITY: No edema or cyanosis.? no leg pain, redness, swelling.? ABDOMEN: Multiple surgical scars noted. No hernias. He has chronic abdominal pain. He also has chronic scar pain from the incisions. He has a ileostomy that is pink patent and productive. Results Last Vital Signs Temp 36.6 C 04/17/24 07:55 Pulse 84 04/17/24 07:55 Resp 96 H 04/17/24 07:55 BP 147/93 H 04/17/24 07:55 Pulse Ox 97 04/17/24 07:55 Labs 04/17/24 08:28 04/17/24 08:28 Labs: Laboratory Results - last 24 hr 04/17/24 08:28 WBC 7.52 RBC 4.41 Hgb 13.6 Hct 40.6 MCV 92 MCH 30.8 MCHC 33.5 RDW 13.2 Plt Count 241 MPV 10.7 Immature Gran % 0.3 Neutrophils % 64.2 Lymphocytes % 24.2 Monocytes % 9.2 Eosinophils % 1.7 Basophils % 0.4 Nucleated RBC % 0.0 Absolute Neutrophils 4.83 Absolute Lymphocytes 1.82 Absolute Monocytes 0.69 Absolute Eosinophils 0.13 Absolute Basophils 0.03 VBG Lactate 1.2 Sodium 137 Potassium 3.4 L Chloride 98 Carbon Dioxide 32.5 H Anion Gap 6.5 BUN 20 H Creatinine 1.3 Est GFR (CKD-EPI 2020) 63.28 Glucose 168 H Calcium 9.1 Total Bilirubin 0.8 AST 36 ALT 58 Alkaline Phosphatase 207 H Total Protein 7.2 Albumin 3.5 Procalcitonin 0.2
--- NOTE | 2024-04-17 13:22 | ROE_ITS ---
Date of service: 04/17/24 Time of Service: 13:22 Operative Note Operative Note DATE OF PROCEDURE: 04/17/24 PRE-OP DIAGNOSIS: dennis e infection/bacteremia PROCEDURE: Patient is here today for central venous catheter removal.? Informed consent is obtained explaining risks and benefits of the procedure including but not limited to: Bleeding, infections, pneumonia, blood clots, damage to the blood vessel which may require surgery.? Chronic pain chronic numbness.? Seromas, nonhealing wounds, and other unforetold complications.? Also complications of anesthetic. The pt had no problems while the device was in.? No b leeding/infections/subcutaneous injections.? There are no signs of infection today. Pt device is: Pt medications and allergies are reviewed prior to beginning the procedure.? The pt is not on any blood thinners.? The pt has not had any problems w/ local anesthetics in the past.? All questions are answered to their satisfaction. ?Post procedural expectations and cares are reviewed w/ the pt Patient is brought the procedure room and placed in the supine position.? Safety timeout check is performed.? Allergies and medications are reviewed.? The area is the right anterior chest wall is prepped and draped in the usual sterile fashion is a ChloraPrep scrub scrub solution.? 30 cc of 1% lidocaine buffered is used for local anesthetization.? The old incision is opened up using 12 blade.? The reservoir hub is dissected out.?? The catheter itself is dissected out from the subcutaneous tissues.? It is then removed in its entirety.? Pressure is held.? There is no bleeding noted.? Monocryl was used to close the subcutaneous pocket, and the incision is closed in a running subcuticular fashion.? Skin glue was applied. ??Patient tolerated the procedure well without complication.? The device was disposed of in accordance w/ regulatory standards.? The pt will follow-up with their medical team as needed.? They were given instructions in wound care activity warning signs; if these occurred, contact the office or go to the emergency department if it is after hours. All these questions and concerns were answered. Pt was discharged to home in stable and satisfactory condition.? F/u as needed. SURGEON: Enedina Jensen ANESTHESIA TYPE: Local By Surgeon Refer to Anesthesia Record ESTIMATED BLOOD LOSS: 1 PATHOLOGY: other COMPLICATIONS: None Patient was transported to: no change Patient's condition: stable Procedure Description: Patient is here today for central venous catheter removal.? Informed consent is obtained explaining risks and benefits of the procedure including but not limited to: Bleeding, infections, pneumonia, blood clots, damage to the blood vessel which may require surgery.? Chronic pain chronic numbness.? Seromas, nonhealing wounds, and other unforetold complications.? Also complications of anesthetic. The pt had no problems while the device was in.? No bleeding/infections/subcutaneous injections.? There are no signs of infection today. Pt device is: Pt medications and allergies are reviewed prior to beginning the procedure.? The pt is not on any blood thinners.? The pt has not had any problems w/ local anesthetics in the past.? All questions are answered to their satisfaction. ?Post procedural expectations and cares are reviewed w/ the pt Patient is brought the procedure room and placed in the supine position.? Safety timeout check is performed.? Allergies and medications are reviewed.? The area is the right anterior chest wall is prepped and draped in the usual sterile fashion is a ChloraPrep scrub scrub solution.? 30 cc of 1% lidocaine buffered is used for local anesthetization.? The old incision is opened up using 12 blade.? The reservoir hub is dissected out.?? The catheter itself is dissected out from the subcutaneous tissues.? It is then removed in its entirety.? Pressure is held.? There is no bleeding noted.? Monocryl was used to close the subcutaneous pocket, and the incision is closed in a running subcuticular fashion.? Skin glue was applied. ??Patient tolerated the procedure well without complication.? The device was disposed of in accordance w/ regulatory standards.? The pt will follo w-up with their medical team as needed.? They were given instructions in wound care activity warning signs; if these occurred, contact the office or go to the emergency department if it is after hours. All these questions and concerns were answered. Pt was discharged to home in stable and satisfactory condition.? F/u as needed.
== END 2024-04-17 10:28 | disposition left against medical advice (07) ==
PROVIDERS: Emergency Provider Physician Assistant; PCP Family Medicine
DX: T82.7XXA Infection and inflammatory reaction due to other cardiac and vascular devices, implants and grafts, initial encounter; R78.81 Bacteremia; E46 Unspecified protein-calorie malnutrition; I73.00 Raynaud's syndrome without gangrene; K50.90 Crohn's disease, unspecified, without complications; K91.2 Postsurgical malabsorption, not elsewhere classified; F17.210 Nicotine dependence, cigarettes, uncomplicated; Z79.891 Long term (current) use of opiate analgesic
CPT/HCPCS: 36415; 80053; 84145; 87040; 87077; 96365; 99285; 83605; 85025; 87070; 87186; 93306; 99284; J3372

== ENCOUNTER 2024-04-17 11:55 | Observation (INO) | payer MEDICARE, SELFPAY ==
[2024-04-17 12:00] VITALS: BP 138/75; PULSE 82; RESP 16; TEMP 37; O2SAT 97
[2024-04-17 12:08] VITALS: BP 138/75; PULSE 82; RESP 16; TEMP 37; O2SAT 97
--- NOTE | 2024-04-17 12:43 | W.ED.GENAD ---
Discharge Plan Disposition Patient Disposition: Admit to [facility] Condition: Stable Discharge Details Chief Complaint: GenMedical Clinical Impression: Bacteremia associated with intravascular line, Bacteremia, Malnutrition Primary Care Provider: Natty Mckinney V ED Provider: Tatiana Rosas Home Meds and New Rx's Prescriptions: No Action ondansetron HCl [Zofran] 4 mg Tablet 4 mg PO Q6H PRN hydrocodone-acetaminophen 10-325 mg Tablet 2 tab PO Q8H PRN diphenoxylate-atropine [Lomotil] 2.5-0.025 mg tablet 4 tab PO TID Centrum Men 8 mg iron- 200 mcg-600 mcg tablet 1 tab PO DAILY ferrous sulfate 325 mg (65 mg iron) tablet 325 mg PO DAILY cyanocobalamin (vitamin B-12) 1,000 mcg/mL kit 1,000 mcg subcut .[id number] methadone [Dolophine] 10 mg tablet 20 mg PO HS Patient Comments: Pt. states he takes this medication 0900pm 0200am 0400am Intralipid 20 % Emulsion 50 g IVPB DAILY Qty: 0 0RF nicotine [Nicoderm CQ] 14 mg/24 hr Patch 24 Hour 1 patch TRANSDERMAL DAILY diclofenac sodium [Voltaren] 1 % Gel 2 - 4 g TOPICAL QID PRN (Reason: Hand pain) naloxone [Narcan] 4 mg/actuation [place],Non-Aerosol 1 spray INTRANASAL Q3M colchicine 0.6 mg capsule 0.6 mg PO BID Qty: 28 0RF omeprazole 20 mg capsule,delayed release(DR/EC) 20 mg PO BID Qty: 28 0RF ibuprofen 600 mg tablet 600 mg PO TID Qty: 42 0RF HPI General Date/Time Provider Initiated Documentation: 04/17/24 11:56. Limitations to Documentation: no limitations. Information obtained by: patient, RN notes reviewed and old records reviewed. History of Present Illness 58 year old M presents to the emergency department with the chief complaint of bacteremia, Related Data Home Medications Medication Instructions Recorded Confirmed diphenoxylate-atropine 2.5 4 tab PO TID 12/08/20 04/17/24 mg-0.025 mg tablet (Lomotil) diclofenac sodium 1 % topical gel 2 - 4 g topical QID PRN Hand pain 02/07/21 04/17/24 (Voltaren) naloxone 4 mg/actuation nasal 1 spray intranasal Q3M 02/07/21 04/17/24 spray (Narcan) nicotine 14 mg/24 hr daily 1 patch transdermal DAILY 02/07/21 04/17/24 transdermal patch (Nicoderm CQ) hydrocodone 10 mg-acetaminophen 2 tab PO Q8H PRN 03/23/21 04/17/24 325 mg tablet ondansetron HCl 4 mg tablet 4 mg PO Q6H PRN 03/23/21 04/17/24 (Zofran) cyanocobalamin (vitamin B-12) 1,000 mcg subcut .[id number] 10/09/22 04/17/24 1,000 mcg/mL injection kit ferrous sulfate 325 mg (65 mg 325 mg PO DAILY 10/09/22 04/17/24 iron) tablet multivit,Ca,min-iron 8 mg-folic 1 tab PO DAILY 10/09/22 04/17/24 acid 200 mcg-lycopene 600 mcg tablet (Centrum Men) methadone 10 mg tablet (Dolophine) 20 mg PO HS 10/23/22 04/17/24 fat emulsion 20 % intravenous 50 g IVPB DAILY #0 mL 03/28/23 04/17/24 (Intralipid) colchicine 0.6 mg capsule 0.6 mg PO BID #28 caps 07/26/23 04/17/24 ibuprofen 600 mg tablet 600 mg PO TID #42 tabs 07/26/23 04/17/24 omeprazole 20 mg capsule,delayed 20 mg PO BID #28 caps 07/26/23 04/17/24 release Previous Rx's Medication Instructions Recorded fat emulsion 20 % intravenous 50 g IVPB DAILY #0 mL 03/28/23 (Intralipid) colchicine 0.6 mg capsule 0.6 mg PO BID #28 caps 07/26/23 ibuprofen 600 mg tablet 600 mg PO TID #42 tabs 07/26/23 omeprazole 20 mg capsule,delayed 20 mg PO BID #28 caps 07/26/23 release Allergies Allergy/AdvReac Type Severity Reaction Status Date / Time No Known Allergies Allergy Verified 04/17/24 12:03 General Stated Complaint: GenMedical GENET: 3 Review of Systems Constitutional Constitutional: Reports as per HPI, Denies chills, Reports fever(s) and Denies headache(s) ENT Ears, Nose, Mouth, and Throat: Denies headache(s) Cardiovascular Cardiovascular: Reports as per HPI, Denies chest pain and Denies dyspnea Respiratory Respiratory: Reports as per HPI, Denies cough and Denies dyspnea Neurologic Neurologic: Denies headache(s) Exam Const General: cooperative, healthy appearing, comfortable and no acute distress Nutritional Appearance: average body habitus and well nourished Orientation: alert and awake Resp Effort & Inspection: normal respiratory effort, able to speak in complete sentences and no respiratory distress Cardio Rate: regular rate Rhythm: regular rhythm Skin General skin exam: no rashes or lesions noted Neuro General: patient alert and patient awake Cognition: normal cognition Speech: speech normal Gait: normal gait Psych Appearance: grossly normal and well kempt Mental Status: mental status grossly normal Speech and Movement: speech and movement normal Course Vital Signs Vital signs: Vital Signs Temperature 37.0 C 04/17/24 12:00 Pulse 82 04/17/24 12:00 Respiratory Rate 16 04/17/24 12:00 Blood Pressure 138/75 04/17/24 12:00 Pulse Oximetry 97 04/17/24 12:00 Temperature 37.0 C 04/17/24 12:08 Pulse 82 04/17/24 12:08 Respiratory Rate 16 04/17/24 12:08 Respiratory Effort Normal 04/17/24 12:07 Respiratory Depth Normal 04/17/24 12:05 Respiratory Pattern Normal 04/17/24 12:05 Blood Pressure 138/75 04/17/24 12:08 Pulse Oximetry 97 04/17/24 12:08 Oxygen Delivery Method Room Air 04/17/24 12:08 Oxygen Flow Rate 0 04/17/24 12:08 Medical Decision Making Patient is a pleasant 58-year-old male presenting to the ED for line removal and possible admission. Please see previous note. Patient was seen by myself just a few hours ago for bacteremia but left AGAINST MEDICAL ADVICE to bring his dog to different housing. He presents again for removal of his central line, this will be completed by Dr. Jensen. Patient's remained n.p.o. since being gone. Patient received vancomycin this morning. I did speak with Dr. Rodriguez regarding admission. We were able to obtain an echocardiogram which does not show any acute visitations. Ejection fraction 55%. Patient very much would prefer outpatient management, is refusing to stay past 24 hours for admission if that is absolutely necessary at all. He would prefer outpatient management as he lives with his dog and [address] severe [address] his family[address] Dr. Frank recommended Zyvox versus daptomycin for daily dosing rather than more frequent dosing. I did speak with pharmacist who recommends next dose of Dapto would need to be tomorrow morning. Patient did not have a leukocytosis, no elevated lactate, does not appear acutely septic, more just bacteremic likely associated with indwelling catheter. He reports that while he does have issues with nutritional absorption, he is able to stay hydrated and maintain himself through oral intake. Line was removed by Dr. Jensen, please see her notes regarding procedure. We discussed disposition of the patient. She advises inpatient admission. Echocardiogram was obtained this morning showing no vegetations. Patient remains hemodynamically stable, do not believe that he is septic but rather bacteremic. Source control was obtained today, no evidence to suggest endocarditis. However, patient does plan to be able to go home tomorrow, timing of the repeat IV dosing is not attainable without admission for the evening, repeat daptomycin dose tomorrow. Continue to monitor the patient for signs of sepsis. She is also going to work on transitioning to TPN that may be completed via midline which anesthesia will place. Discussed plan with the patient who is in agreement. Consulted with hospitalist who agrees to admission. Plan for patient to obtain a midline by anesthesia, transition to home antibiotics and alternative TPN agent. Quality:SDOH Health Related Social Needs: No Data to Display PFSH All Active Problems (Updated 04/17/24 @ 16:23 by NITIN Tovar) Bacteremia (Acute) Bacteremia associated with intravascular line (Acute) Fever (Acute) Chronic prescription opiate use (Chronic) Short gut syndrome (Chronic) Malnutrition (Acute) Internal derangement of right knee (Acute) Osteoarthritis of right knee (Acute) Vitamin B12 deficiency (Acute) Fatigue (Acute) Dyspnea on exertion (Acute) Depression (Chronic) Raynaud's disease (Acute) Postprandial vomiting (Acute) Smoker (Acute) Abdominal pain (Acute) Vision changes (Acute) Sinus pain (Acute) Joint pain (Acute) Syncope (Chronic) Ileostomy status (Chronic) Crohn's disease (Chronic) History of total right knee replacement (Acute 02/09/21) Arthrofibrosis of total knee arthroplasty (Acute) RIGHT S/P Manipulation: 04/20/2021 Pain in elbow joint (Acute) Ulnar abutment syndrome of both wrists (Acute) Degenerative arthritis of carpometacarpal joint of thumb (Acute) Disease of gallbladder, unspecified (Acute) Elevated liver function tests (Acute) Methadone use (Acute) Unintended weight loss (Chronic) Liver mass (Acute) Medical History (Updated 04/17/24 @ 16:23 by NITIN Tovar) Infected cyst of skin tx with abx Preventative health care Encounter for therapeutic drug level monitoring Preoperative examination Atrial enlargement, left Situational depression Dyspnea Neck pain Radiculopathy affecting upper extremity Other postprocedural complications and disorders of genitourinary system post procedure testicular pain Hip pain Gallstones Tongue lesion Anemia Hematuria Pelvic pain Other complications following infusion, transfusion and therapeutic injection, subsequent encounter Right knee pain RBBB RUQ pain Complaint of pain of toe Bilateral thumb pain Elevated PSA Pain of knee joint on movement Paresthesia Breast lump History of pneumonia Pulmonary nodule Prostate cancer Surgical History (Updated 03/26/23 @ 18:12 by Shantell Mccoy NP) History of creation of ostomy had in situ since 1988 Hx of total knee arthroplasty Cataract extraction status Social History Smoking/Tobacco Use Status: Current every day Tobacco Type: cigarettes Tobacco: How many years used: 44 Smoking risk assessment performed?: Yes Alcohol Intake: never Drug use: Socially Substance use type: former substance user and marijuana Household members: none Housing: apartment current occupation: Disabled Current gender identity: male Do you feel safe at home: Yes Do you feel safe in your relationship?: Yes Additional Social history: lives alone
[2024-04-17] MEDS: Lidocaine 1% Multi-Dose W/EPI 1/100,000 50 ML VIAL (12:50)
[2024-04-17 14:06] VITALS: BP 121/59; PULSE 74; RESP 18; TEMP 36.1; O2SAT 97
[2024-04-17 16:00] VITALS: BP 121/59; PULSE 74; RESP 16; TEMP 36.1; O2SAT 97
--- NOTE | 2024-04-17 16:55 | W.PM.HP.N ---
Date of service: 04/17/24 Time of Service: 16:55 Assessment and Plan Assessment and plan (1) Bacteremia associated with intravascular line: Status: Acute Assessment and plan: admission overnight for placement of midline. I explained to him that his midline can not be used for TPN but when his blood cultures come back negative after couple days of iv antibiotics then the midline can be converted to PICC line and used for TPN. He will need minimum of 2 weeks of iv antibiotics but may need 6 weeks especially if Staph aureus (either MSSA or MRSA). Patient was seen w/ Dr. Jensen who entered the room while I was beginning my interview of the patient. I will ask her to assume his care tomorrow as they are best equipped to follow up w/ him as outpatient as he will need monitoring of his CBC, BMP and CK levels while on Daptomycin and they will need to determine when his midline can be changed over to PICC line. Qualifiers: Encounter type: initial encounter Qualified Code(s): T82.7XXA - Infection and inflammatory reaction due to other cardiac and vascular devices, implants and grafts, initial encounter; R78.81 - Bacteremia (2) Short gut syndrome: Status: Chronic Qualifiers: Short bowel syndrome type: without colon in continuity Qualified Code(s): K90.822 - Short bowel syndrome without colon in continuity (3) Crohn's disease: Status: Chronic Qualifiers: Gastrointestinal tract location: small and large intestine Digestive disease complication type: without complication Qualified Code(s): K50.80 - Crohn's disease of both small and large intestine without complications History of Present Illness History of Present Illness Chief Complaint: bacteremia Narrative: 58 yr old male w/ hx of Crohn's disease since age of 10 yr old who has had over 30 abdominal operations over his life and now has short gut syndrome (reports having only 3 feet of SB left) who has been on TPN since March 2023 when he had Groshong port put in. He is followed by [facility] surgical team who manages his TPN. Patient developed fever (up to 102) and chills and rigors on Sunday evening continued to have fevers daily along w/ diaphoresis. He labs drawn on 04/15 which showed some increase in his inflammatory markers but presented to the E.D. on 04/16 had repeat labs including blood cultures and imaging including CXR and CT abdomen and pelvis. No acute changes on imaging but blood culture came back positive today for GPC. he did redceive Rocephin 2 gm while in the E.D. on 04/16 and was advised to remain hospitalized until infectious source could be identified or ruled out but he left the E.D. against medical advice. However he returned today at the urging of his surgeon and came in to have his Groshong removed d/t the bacteremia. He received a dose of Vancomycin while in the E.D. and his port was removed. Surgery asked the E.D. to have the hospitalist team to admit the patient. Patient is to have midline placed and continue w/ daily infusions of daptomycin pending final identification of the GPC organism. If MSSA or Strep then he could potentially be treated w/ Ceftriaxone but if MRSA then he will need daptomycin and will need 4 to 6 weeks course. Patient is adamant that he will not stay beyond tomorrow. Review of Systems All systems reviewed & are unremarkable except as noted in HPI and below PFSH All Active Problems (Updated 04/17/24 @ 19:52 by Percy Cunningham MD) Bacteremia (Acute) Bacteremia associated with intravascular line (Acute) Fever (Acute) Chronic prescription opiate use (Chronic) Short gut syndrome (Chronic) Malnutrition (Acute) Internal derangement of right knee (Acute) Osteoarthritis of right knee (Acute) Vitamin B12 deficiency (Acute) Fatigue (Acute) Dyspnea on exertion (Acute) Depression (Chronic) Raynaud's disease (Acute) Postprandial vomiting (Acute) Smoker (Acute) Abdominal pain (Acute) Vision changes (Acute) Sinus pain (Acute) Joint pain (Acute) Syncope (Chronic) Ileostomy status (Chronic) Crohn's disease (Chronic) History of total right knee replacement (Acute 02/09/21) Arthrofibrosis of total knee arthroplasty (Acute) RIGHT S/P Manipulation: 04/20/2021 Pain in elbow joint (Acute) Ulnar abutment syndrome of both wrists (Acute) Degenerative arthritis of carpometacarpal joint of thumb (Acute) Disease of gallbladder, unspecified (Acute) Elevated liver function tests (Acute) Methadone use (Acute) Unintended weight loss (Chronic) Liver mass (Acute) Medical History Infected cyst of skin tx with abx Preventative health care Encounter for therapeutic drug level monitoring Preoperative examination Atrial enlargement, left Situational depression Dyspnea Neck pain Radiculopathy affecting upper extremity Other postprocedural complications and disorders of genitourinary system post procedure testicular pain Hip pain Gallstones Tongue lesion Anemia Hematuria Pelvic pain Other complications following infusion, transfusion and therapeutic injection, subsequent encounter Right knee pain RBBB RUQ pain Complaint of pain of toe Bilateral thumb pain Elevated PSA Pain of knee joint on movement Paresthesia Breast lump History of pneumonia Pulmonary nodule Prostate cancer Surgical History History of creation of ostomy had in situ since 1988 Hx of total knee arthroplasty Cataract extraction status Social History Smoking/Tobacco Use Status: Current every day Tobacco Type: cigarettes Tobacco: How many years used: 44 Smoking risk assessment performed?: Yes Alcohol Intake: never Drug use: Socially Substance use type: former substance user and marijuana Household members: none Housing: apartment current occupation: Disabled Current gender identity: male Do you feel safe at home: Yes Do you feel safe in your relationship?: Yes Additional Social history: lives alone Meds Allergies and Home Medications Allergies Allergy/AdvReac Type Severity Reaction Status Date / Time No Known Allergies Allergy Verified 04/17/24 12:03 Home Medications Medication Instructions Recorded Confirmed Type diphenoxylate-atropine 2.5 4 tab PO TID 12/08/20 04/17/24 History mg-0.025 mg tablet (Lomotil) diclofenac sodium 1 % topical gel 2 - 4 g topical QID PRN Hand pain 02/07/21 04/17/24 History (Voltaren) naloxone 4 mg/actuation nasal 1 spray intranasal Q3M 02/07/21 04/17/24 History spray (Narcan) nicotine 14 mg/24 hr daily 1 patch transdermal DAILY 02/07/21 04/17/24 History transdermal patch (Nicoderm CQ) hydrocodone 10 mg-acetaminophen 2 tab PO Q8H PRN 03/23/21 04/17/24 History 325 mg tablet ondansetron HCl 4 mg tablet 4 mg PO Q6H PRN 03/23/21 04/17/24 History (Zofran) cyanocobalamin (vitamin B-12) 1,000 mcg subcut .[id number] 10/09/22 04/17/24 History 1,000 mcg/mL injection kit ferrous sulfate 325 mg (65 mg 325 mg PO DAILY 10/09/22 04/17/24 History iron) tablet multivit,Ca,min-iron 8 mg-folic 1 tab PO DAILY 10/09/22 04/17/24 History acid 200 mcg-lycopene 600 mcg tablet (Centrum Men) methadone 10 mg tablet (Dolophine) 10 mg PO TID 10/23/22 04/17/24 History fat emulsion 20 % intravenous 50 g IVPB DAILY #0 mL 03/28/23 04/17/24 Rx (Intralipid) colchicine 0.6 mg capsule 0.6 mg PO BID #28 caps 07/26/23 04/17/24 Rx ibuprofen 600 mg tablet 600 mg PO TID #42 tabs 07/26/23 04/17/24 Rx omeprazole 20 mg capsule,delayed 20 mg PO BID #28 caps 07/26/23 04/17/24 Rx release Exam Narrative Exam Narrative: Middle age white male who appears younger than his 58 yrs of age and looks surprisingly health for lifetime of Crohn's and short gut syndrome HEENT: unremarkable, Neck w/out adenopathy or JVD, no supraclavicular or axillary adenopathy Chest wall: site of right infraclavicular location of port is bandaged but no induration or surrounding erythema, chest wall nontender Lungs: clear Heart: RRR, no murmur or rub Abdomen: multiple surgical scars, normal bowel sound but tender to palpation and he would not allow for full abdominal exam, stating his abdomen is always painful, ileostomy in RLQ, no surrounding induration or erythema Extremities: no open sores, normal ROM and strength Results Last Vital Signs Temp 36.1 C L 04/17/24 16:00 Pulse 74 04/17/24 16:00 Resp 16 04/17/24 16:00 BP 121/59 L 04/17/24 16:00 Pulse Ox 97 04/17/24 16:00 Time Spent Time spent with Patient: 40-54 minutes Time was spent: preparing to see the patient(eg.review tests), obtaining and/or reviewing separately otained hiistory, ordering medications,tests, procedures, referring, communicating with other health ocular care aide, indepentently interpreting results and care coordination
[2024-04-17] MEDS: Enoxaparin 40 MG/0.4 ML SYR SC (17:06)
[2024-04-17 20:25] VITALS: BP 152/77; PULSE 69; RESP 16; TEMP 36.9; O2SAT 95
[2024-04-17] MEDS: Normal Saline Flush 10 ML SYR IVP (20:31)
[2024-04-18] MEDS: Normal Saline 10 ML VIAL IJ (05:40)
[2024-04-18 07:25] VITALS: BP 146/81; PULSE 65; RESP 16; TEMP 36.7; O2SAT 96
[2024-04-18 08:11] LABS: HGB 12.9 g/dL (13.5-17.5); MCH 31.2 pg (27.0-33.0); MCHC 33.9 % (32.0-36.0); MCV 92 fL (80-95); MPV 11.8 fL (8.0-11.0); Platelet Count 248 10^3/uL (130-400); RBC 4.13 10^6/uL (4.36-5.78); RDW 13.1 % (11.8-14.1); RDW-SD 44.2 fL; WBC 7.41 10^3/uL (4.4-10.8)
[2024-04-18 08:26] LABS: ALT 59 U/L (16-63); AST 39 U/L (15-37); Albumin 3.2 g/dL (3.4-5.0); Alkaline Phosphatase 182 U/L (46-116); Anion Gap 7.9 mmol/L (3-11); BUN 16 mg/dL (7-18); Bilirubin, Total 0.6 mg/dL (0.2-1.0); CO2 29.1 mmol/L (21.0-32.0); Calcium 8.7 mg/dL (8.5-10.1); Chloride 100 mmol/L (98-107); Creatine Kinase 241 U/L (39-308); Glucose 141 mg/dL (74-106); Magnesium 2.1 mg/dL (1.8-2.4); PHOSPHORUS 2.1 mg/dL (2.6-4.7); Potassium 3.5 mmol/L (3.5-5.1); Sodium 137 mmol/L (136-145); Total Protein 6.4 g/dL (6.4-8.2)
[2024-04-18 08:40] LABS: Prothrombin Time 10.5 sec (9.1-11.1)
[2024-04-18] MEDS: Methadone 10 MG TAB PO (09:12)
[2024-04-18] MEDS: Omeprazole 20 MG CAPCR PO (09:13)
[2024-04-18] MEDS: Multivitamin TAB 1 TAB PO (09:13)
[2024-04-18] MEDS: Nicotine 14 MG/24 HR PATCH TD (09:13)
[2024-04-18] MEDS: Ferrous Sulfate 325 MG TAB PO (09:13)
[2024-04-18] MEDS: Normal Saline Flush 10 ML SYR IVP (09:14)
--- NOTE | 2024-04-18 11:21 | NUR.NOTE ---
Nursing Note: Patient called this RN 10:45 stating he will be leaving AMA at 11:00. Patient stated he was upset that IV iron was ordered, and that he does not need it. Paged Dr. Oliver immediately. Patient came to the nurses station at 11:05 with aggressive posture and tone, and stated he is leaving and wanted the IV out, but stated he will leave with the PICC line. Advised the patient that he can leave as he wishes, but we ask that he speak with Dr. Oliver first and lines be removed. Patient stated he would not wait. Dr. Oliver responded at this time - approximately 11:10. Patient stood by the nurses station. Dr. Oliver stated he was coming to talk with the patient. The patient agreed to wait and returned to his room. The IV was removed.
--- NOTE | 2024-04-18 11:24 | DSE_ITS ---
Date of service: 04/18/24 Time of Service: 11:24 DS: Diagnosis Discharge Diagnosis (1) Bacteremia associated with intravascular line: Status: Acute (2) Short gut syndrome: Status: Chronic (3) Crohn's disease: Status: Chronic Discharge Plan Disposition Patient Disposition: Home W/Home Health Services Condition: Fair Discharge Details Reason For Visit: Gram Positive Bacteremia Admit Date/Time: 04/17/24 14:23 Admit Provider: Enedina Jensen Attending Provider: Enedina Jensen Primary Care Provider: Natty Mckinney V Home Meds and New Rx's Prescriptions: New daptomycin 500 mg recon soln 700 mg IV Q24H Rx Instructions: administer over 30 mins Continued ondansetron HCl [Zofran] 4 mg Tablet 4 mg PO Q6H PRN hydrocodone-acetaminophen 10-325 mg Tablet 2 tab PO Q8H PRN diphenoxylate-atropine [Lomotil] 2.5-0.025 mg tablet 4 tab PO TID Centrum Men 8 mg iron- 200 mcg-600 mcg tablet 1 tab PO DAILY ferrous sulfate 325 mg (65 mg iron) tablet 325 mg PO DAILY cyanocobalamin (vitamin B-12) 1,000 mcg/mL kit 1,000 mcg subcut .[id number] methadone [Dolophine] 10 mg tablet 10 mg PO TID Patient Comments: Pt. states he takes this medication 0900pm 0200am 0400am nicotine [Nicoderm CQ] 14 mg/24 hr Patch 24 Hour 1 patch TRANSDERMAL DAILY diclofenac sodium [Voltaren] 1 % Gel 2 - 4 g TOPICAL QID PRN (Reason: Hand pain) naloxone [Narcan] 4 mg/actuation [place],Non-Aerosol 1 spray INTRANASAL Q3M colchicine 0.6 mg capsule 0.6 mg PO BID Qty: 28 0RF omeprazole 20 mg capsule,delayed release(DR/EC) 20 mg PO BID Qty: 28 0RF ibuprofen 600 mg tablet 600 mg PO TID Qty: 42 0RF Discontinued Intralipid 20 % Emulsion 50 g IVPB DAILY Qty: 0 0RF Discharge Instructions Activity:: Activity as Tolerated Equipment/Supplies:: No Equipment Needed Diet:: As Tolerated DS: Summary Time Spent with Patient providing and/or coordinating discharge services: Less than 30 minutes Status at Discharge Functional status at discharge: independent ambulation Overall status at discharge: patient is back to baseline Mental Status: mental status grossly normal Speech and Movement: speech and movement normal Mood: congruent mood Affect: irritable affect Quality:SDOH Health Related Social Needs: No Data to Display Exam Psych Mental Status: mental status grossly normal Speech and Movement: speech and movement normal Mood: congruent mood Affect: irritable affect DS: Data Vitals/I&O Vitals and I&O: Vital Signs Temperature 98.1 F 04/18/24 07:25 Temperature Source Temporal Artery Scan 04/18/24 07:25 Pulse 65 04/18/24 07:25 Pulse Rhythm Regular 04/17/24 20:52 Respiratory Rate 16 04/18/24 07:25 Respiratory Effort Normal 04/17/24 20:52 Respiratory Depth Normal 04/17/24 20:52 Respiratory Pattern Normal 04/17/24 20:52 Blood Pressure 146/81 H 04/18/24 07:25 Pulse Oximetry 96 04/18/24 07:25 Oxygen Delivery Method Room Air 04/18/24 07:25 Oxygen Flow Rate 0 04/18/24 07:25 Pain Level 0 04/18/24 07:25 Intake & Output 04/17/24 04/17/24 04/18/24 11:59 23:59 11:59 Intake Total 1000 / 1000 Balance 1000 / 1000 Weight 178 lb 176 lb 12.972 oz Intake: Oral 1000 / 1000 Other: Urine Appearance Clear Comment voided in toilet Data Completed and Pending Labs on day of discharge: Labs from last 24 hours 04/18/24 04/18/24 04/18/24 06:45 06:45 06:45 WBC RBC Hgb Hct MCV MCH MCHC RDW Plt Count MPV PT INR Sodium Potassium Chloride Carbon Dioxide Anion Gap BUN Creatinine Est GFR (CKD-EPI 2020) Glucose Calcium Phosphorus Magnesium Total Bilirubin AST ALT Alkaline Phosphatase Cancelled Creatine Kinase 241 Total Protein Cancelled 6.4 Albumin Cancelled 3.2 L 04/18/24 04/18/24 04/18/24 06:45 06:45 06:45 WBC RBC Hgb Hct MCV MCH MCHC RDW Plt Count MPV PT INR Sodium Potassium Chloride Carbon Dioxide Anion Gap BUN Creatinine Est GFR (CKD-EPI 2020) Glucose Calcium Phosphorus Magnesium Total Bilirubin Cancelled AST Cancelled 39 H ALT Cancelled 59 Alkaline Phosphatase 182 H Creatine Kinase Total Protein Albumin 04/18/24 04/18/24 04/18/24 06:45 06:45 06:45 WBC RBC Hgb Hct MCV MCH MCHC RDW Plt Count MPV PT INR Sodium Potassium Chloride Carbon Dioxide Anion Gap BUN Creatinine Est GFR (CKD-EPI 2020) Cancelled Glucose Cancelled 141 H Calcium Cancelled 8.7 Phosphorus 2.1 L Magnesium 2.1 Total Bilirubin 0.6 AST ALT Alkaline Phosphatase Creatine Kinase Total Protein Albumin 04/18/24 04/18/24 04/18/24 06:45 06:45 06:45 WBC RBC Hgb Hct MCV MCH MCHC RDW Plt Count MPV PT INR Sodium Potassium Chloride Carbon Dioxide Anion Gap Cancelled BUN Cancelled 16 Creatinine Cancelled 1.0 Est GFR (CKD-EPI 2020) 86.70 Glucose Calcium Phosphorus Magnesium Total Bilirubin AST ALT Alkaline Phosphatase Creatine Kinase Total Protein Albumin 04/18/24 04/18/24 04/18/24 06:45 06:45 06:45 WBC RBC Hgb Hct MCV MCH MCHC RDW Plt Count MPV PT INR Sodium Potassium Cancelled Chloride Cancelled 100 Carbon Dioxide Cancelled 29.1 Anion Gap 7.9 BUN Creatinine Est GFR (CKD-EPI 2020) Glucose Calcium Phosphorus Magnesium Total Bilirubin AST ALT Alkaline Phosphatase Creatine Kinase Total Protein Albumin 04/18/24 04/18/24 06:45 06:45 WBC 7.41 RBC 4.13 L Hgb 12.9 L Hct 38.0 L MCV 92 MCH 31.2 MCHC 33.9 RDW 13.1 Plt Count 248 MPV 11.8 H PT 10.5 INR 1.0 Sodium Cancelled 137 Potassium 3.5 Chloride Carbon Dioxide Anion Gap BUN Creatinine Est GFR (CKD-EPI 2020) Glucose Calcium Phosphorus Magnesium Total Bilirubin AST ALT Alkaline Phosphatase Creatine Kinase Total Protein Albumin 04/18/24 06:55 Blood Blood Culture - Pending 04/18/24 06:45 Blood Blood Culture - Pending Preliminary micro results at discharge 04/18/24 06:55 Blood Culture - Pending Blood 04/18/24 06:45 Blood Culture - Pending Blood [facility] All Active Problems Bacteremia (Acute) Bacteremia associated with intravascular line (Acute) Fever (Acute) Chronic prescription opiate use (Chronic) Short gut syndrome (Chronic) Malnutrition (Acute) Internal derangement of right knee (Acute) Osteoarthritis of right knee (Acute) Vitamin B12 deficiency (Acute) Fatigue (Acute) Dyspnea on exertion (Acute) Depression (Chronic) Raynaud's disease (Acute) Postprandial vomiting (Acute) Smoker (Acute) Abdominal pain (Acute) Vision changes (Acute) Sinus pain (Acute) Joint pain (Acute) Syncope (Chronic) Ileostomy status (Chronic) Crohn's disease (Chronic) History of total right knee replacement (Acute 02/09/21) Arthrofibrosis of total knee arthroplasty (Acute) RIGHT S/P Manipulation: 04/20/2021 Pain in elbow joint (Acute) Ulnar abutment syndrome of both wrists (Acute) Degenerative arthritis of carpometacarpal joint of thumb (Acute) Disease of gallbladder, unspecified (Acute) Elevated liver function tests (Acute) Methadone use (Acute) Unintended weight loss (Chronic) Liver mass (Acute) Medical History Infected cyst of skin tx with abx Preventative health care Encounter for therapeutic drug level monitoring Preoperative examination Atrial enlargement, left Situational depression Dyspnea Neck pain Radiculopathy affecting upper extremity Other postprocedural complications and disorders of genitourinary system post procedure testicular pain Hip pain Gallstones Tongue lesion Anemia Hematuria Pelvic pain Other complications following infusion, transfusion and therapeutic injection, subsequent encounter Right knee pain RBBB RUQ pain Complaint of pain of toe Bilateral thumb pain Elevated PSA Pain of knee joint on movement Paresthesia Breast lump History of pneumonia Pulmonary nodule Prostate cancer Surgical History History of creation of ostomy had in situ since 1988 Hx of total knee arthroplasty Cataract extraction status Social History Smoking/Tobacco Use Status: Current every day Tobacco Type: cigarettes Tobacco: How many years used: 44 Smoking risk assessment performed?: Yes Alcohol Intake: never Drug use: Socially Substance use type: former substance user and marijuana Household members: none Housing: apartment current occupation: Disabled Current gender identity: male Do you feel safe at home: Yes Do you feel safe in your relationship?: Yes Additional Social history: lives alone Time Spent with Patient Time Spent with Patient: <45 minutes Time was spent: preparing to see the patient(eg.review tests), counseling the patient and care coordination
--- NOTE | 2024-04-18 15:05 | CMPROGNOTE_ITS ---
Date of service: 04/18/24 Time of Service: 15:05 Care Management Progress Note Progress Note Text Progress Note Text: S/O: CM was consulted by Dr. Jensen to help set up IV antibiotics and TPN at home. Per report, Krishan had communicated with staff that he plans to leave at noon today. CM provided order forms to the provider. Per report, Krishan was not willing to remain at [facility] while this was being coordinated. Per MD, he will have his IV antibiotic therapy through the infusion room daily. CM sent the order for TPN to [facility], which he has utilized in the past, and requested that follow up be through surgical services vs his PCP office, as he is no longer inpatient. CM spoke to Norah at [facility], who is familiar with Krishan's plan of care, and is willing to support the TPN order process. CM also contacted his PCP office, who is managing his care out patient, to inform them of his discharge, and to request close follow up with the TPN order as well. CM will continue to follow. A: Krishan is a 58 year old male admitted to [facility] on 04/17/24 for gram positive bacteremia. Discharge Potential Discharge Needs: PCP F/U Appt, Surgical F/U Appt and Other (home TPN coordination through [facility]) Anticipated Barriers to Discharge: Other (coordination of TPN) Patient/Family Education Needs: Review discharge instructions, discuss Ask Me [employer] Transportation: Private vehicle Plan: Krishan discharged home today with a resumption of services. He will have IV antibiotic therapy daily at the [facility] infusion room. CM sent orders to [facility] for his home TPN regiment, which will be followed by surgical services and his PCP office. He will have follow up with his PCP and his discharge plan of care. SDOH(Care Management) Screening Will the Patient Participate in the Screening?: Yes Do you worry about having a steady place to live?: no Problems where you live: no known problems In the past 12 months, have you had to go without electric, gas, oil or water in your home?: no Have you or anyone in your house had to go without enough food to eat?: no Has lack of transportation kept you from medical appointments or from doing things needed for daily living?: no Has anyone in your support network made you feel unsafe for any reason?: no
--- NOTE | 2024-04-20 08:37 | NUR.NOTE ---
Accessed chart to look up whether or not on antibiotic for culture result. Nursing Note:
== END 2024-04-18 11:45 | disposition home health service (06) ==
LOC: ER 16:23 → MS 16:33
PROVIDERS: Internal Medicine; Admitting Provider Surgery; Emergency Provider Physician Assistant; PCP Family Medicine; Visit Provider Surgery
DX: T82.7XXA Infection and inflammatory reaction due to other cardiac and vascular devices, implants and grafts, initial encounter (principal); R78.81 Bacteremia; K90.822 Short bowel syndrome without colon in continuity; K50.80 Crohn's disease of both small and large intestine without complications; Z79.891 Long term (current) use of opiate analgesic; I73.00 Raynaud's syndrome without gangrene; E46 Unspecified protein-calorie malnutrition; E53.8 Deficiency of other specified B group vitamins; F32.A Depression, unspecified; F17.210 Nicotine dependence, cigarettes, uncomplicated; Z93.2 Ileostomy status; Z96.651 Presence of right artificial knee joint; Z79.899 Other long term (current) drug therapy
CPT/HCPCS: 36590; 36410; 00123; 36415; 80048; 80053; 82550; 84145; 85027; 87040; 87077; 96365; 96367; 96372; 99222; 99285; J1650; 83605; 83735; 84100; 85025; 85610; 87070; 87186; 93306; 99284; G0378; J0878; J2004; J3372

== ENCOUNTER 2024-04-19 00:05 | Outpatient (RCR) | payer MEDICARE, SELFPAY ==
[2024-03-24] MEDS: Normal Saline Flush 10 ML SYR IVP (13:09)
[2024-03-24 13:19] LABS: Abs Immature Grans 0.03 10^3/uL (0.0-0.06); Absolute Basophil Count 0.05 10^3/uL (0.0-0.2); Absolute Lymphocyte Count 2.72 10^3/uL (1.2-3.4); Basophils % 0.4 %; Eosinophils % 1.2 %; HGB 13.4 g/dL (13.5-17.5); Immature Grans % 0.3 %; Lymphocytes % 24.1 %; MCH 31.4 pg (27.0-33.0); MCHC 33.5 % (32.0-36.0); MCV 94 fL (80-95); MPV 11.5 fL (8.0-11.0); Monocytes % 6.2 %; Neutrophils % 67.8 %; Platelet Count 221 10^3/uL (130-400); RBC 4.27 10^6/uL (4.36-5.78); RDW 13.2 % (11.8-14.1); RDW-SD 45.2 fL
[2024-03-24 13:20] LABS: Absolute Eosinophil Count 0.14 10^3/uL (0.0-0.7); Absolute Neutrophil Count 7.66 10^3/uL (1.2-6.7)
[2024-03-24 13:45] LABS: ALT 48 U/L (16-63); AST 30 U/L (15-37); Albumin 3.4 g/dL (3.4-5.0); Alkaline Phosphatase 186 U/L (46-116); Anion Gap 9.4 mmol/L (3-11); BUN 21 mg/dL (7-18); Bilirubin, Total 0.5 mg/dL (0.2-1.0); C-Reactive Protein < 0.50 mg/dL (<or=0.5); CO2 28.6 mmol/L (21.0-32.0); CREATININE 1.1 mg/dL (0.70-1.30); Calcium 8.8 mg/dL (8.5-10.1); Chloride 102 mmol/L (98-107); Estimated GFR 77.33 (mL/min/1.73m2); Glucose 143 mg/dL (74-106); Magnesium 1.8 mg/dL (1.8-2.4); PHOSPHORUS 3.3 mg/dL (2.6-4.7); Sodium 140 mmol/L (136-145); Total Protein 6.8 g/dL (6.4-8.2); Triglyceride 54 mg/dL (<150)
[2024-03-25 10:34] LABS: Prealbumin 27 mg/dL (20-40)
[2024-04-07] MEDS: Normal Saline Flush 10 ML SYR IVP (13:13)
[2024-04-07 13:26] LABS: Abs Immature Grans 0.02 10^3/uL (0.0-0.06); Absolute Basophil Count 0.04 10^3/uL (0.0-0.2); Absolute Lymphocyte Count 2.67 10^3/uL (1.2-3.4); Absolute Monocyte Count 0.66 10^3/uL (0.1-0.8); Basophils % 0.4 %; HCT 40.5 % (40.0-50.0); HGB 13.6 g/dL (13.5-17.5); Immature Grans % 0.2 %; MCH 31.3 pg (27.0-33.0); MCHC 33.6 % (32.0-36.0); MCV 93 fL (80-95); MPV 11.5 fL (8.0-11.0); Monocytes % 6.7 %; Neutrophils % 64.7 %; Platelet Count 246 10^3/uL (130-400); RBC 4.34 10^6/uL (4.36-5.78); RDW 13.2 % (11.8-14.1); RDW-SD 45.1 fL; WBC 9.89 10^3/uL (4.4-10.8)
[2024-04-07 13:37] LABS: PHOSPHORUS 3.4 mg/dL (2.6-4.7)
[2024-04-07 13:42] LABS: Iron 57 ug/dL (65-175)
[2024-04-07 13:59] LABS: Vitamin D 25 Total 21.6 ng/mL (30-100)
[2024-04-07 14:16] LABS: Folate > 20.0 ng/mL (8.6-20.0); Triglyceride 53 mg/dL (<150); Vitamin B12 984 pg/mL (193-986)
[2024-04-07 16:43] LABS: ALT 50 U/L (16-63); AST 30 U/L (15-37); Albumin 3.6 g/dL (3.4-5.0); Alkaline Phosphatase 185 U/L (46-116); Anion Gap 10.8 mmol/L (3-11); BUN 21 mg/dL (7-18); Bilirubin, Total 0.5 mg/dL (0.2-1.0); CO2 28.2 mmol/L (21.0-32.0); Calcium 8.9 mg/dL (8.5-10.1); Chloride 100 mmol/L (98-107); Glucose 118 mg/dL (74-106); Potassium 3.7 mmol/L (3.5-5.1); Sodium 139 mmol/L (136-145); Total Protein 7.1 g/dL (6.4-8.2)
[2024-04-09 12:37] LABS: Copper, Serum 116 mcg/dL (73-129); Zinc, S 101 mcg/dL (60-106)
[2024-04-09 12:38] LABS: Selenium, Serum 106 mcg/L (110-165)
[2024-04-10 11:37] LABS: Thiamine (Vitamin B1), WB 209 nmol/L (70-180)
[2024-04-10 22:33] LABS: Free Retinol (Vitamin A) 66.7 mcg/dL (32.5-78.0)
[2024-04-10 23:05] LABS: Vitamin E, Serum 12.8 mg/L (5.5 - 17.0)
[2024-04-15] MEDS: Normal Saline Flush 10 ML SYR IVP (13:21)
[2024-04-15 13:48] LABS: Abs Immature Grans 0.04 10^3/uL (0.0-0.06); Absolute Basophil Count 0.04 10^3/uL (0.0-0.2); Absolute Eosinophil Count 0.15 10^3/uL (0.0-0.7); Absolute Lymphocyte Count 3.11 10^3/uL (1.2-3.4); Absolute Monocyte Count 0.77 10^3/uL (0.1-0.8); Absolute Neutrophil Count 5.11 10^3/uL (1.2-6.7); Basophils % 0.4 %; Eosinophils % 1.6 %; HCT 39.8 % (40.0-50.0); HGB 13.7 g/dL (13.5-17.5); Immature Grans % 0.4 %; Lymphocytes % 33.7 %; MCH 31.2 pg (27.0-33.0); MCHC 34.4 % (32.0-36.0); MCV 91 fL (80-95); MPV 11.8 fL (8.0-11.0); Monocytes % 8.4 %; Neutrophils % 55.5 %; Platelet Count 260 10^3/uL (130-400); RBC 4.39 10^6/uL (4.36-5.78); RDW 13.2 % (11.8-14.1); RDW-SD 43.9 fL; WBC 9.22 10^3/uL (4.4-10.8)
[2024-04-15 14:02] LABS: C-Reactive Protein 1.32 mg/dL (<or=0.5)
[2024-04-19 20:15] LABS: Anaplasma phagocytophilum Negative (Negative); B. miyamotoi PCR Negative (Negative); Babesia divergens/MO-1 Negative (Negative); Babesia duncani Negative (Negative); Babesia microti Negative (Negative); Ehrlichia chaffeensis Negative (Negative); Ehrlichia ewingii/canis Negative (Negative); Ehrlichia muris eauclairensis Negative (Negative)
[2024-04-22 11:51] LABS: Manganese, Serum 0.8 ng/mL (0.5-1.2)
== END 2024-04-19 23:59 | disposition home or self-care (01) ==
LOC: INF 00:05
PROVIDERS: PCP Family Medicine; Visit Provider Family Medicine
DX: E46 Unspecified protein-calorie malnutrition (principal); K91.2 Postsurgical malabsorption, not elsewhere classified; R50.9 Fever, unspecified
CPT/HCPCS: 36415; 80053; 82306; 82525; 84630; 87798; 82565; 82607; 82746; 83540; 83735; 83785; 84100; 84134; 84255; 84425; 84446; 84478; 84590; 85025; 86140

== ENCOUNTER 2024-04-24 08:50 | Inpatient (IN) | payer MEDICARE, SELFPAY ==
--- NOTE | 2024-04-24 | DI.CT_ITS ---
Exam(s) CT CHEST/ABD/PEL W EXAM: CT CHEST/ABD/PEL W CLINICAL HISTORY: bactremia/elvated wbc. TECHNIQUE: Imaging Protocol: Axial computed tomography images with coronal and sagittal reformatted images were created and reviewed CONTRAST MATERIAL: Intravenous: Omnipaque 350 Contrast volume:100 ml Oral: None COMPARISON: CT CT ABDOMEN PELVIS W from 04/16/2024 FINDINGS: CHEST: LUNGS: There are no infiltrates nor pleural effusions. Benign-appearing mild subpleural increased ma rkings are noted in the posterior basal segment of the left lower lobe, unchanged from 04/11/2029.. There are no ominous pulmonary nodules. No findings in the trachea and mainstem bronchi. There is n o bronchiectasis. MEDIASTINUM: There is no hilar nor mediastinal adenopathy. There is no subcarinal adenopathy. No melgoza praclavicular adenopathy. No axillary adenopathy. Partially visualized thyroid unremarkable. CARDIAC: Heart size is normal. There is no pericardial effusion.Caliber of the thoracic aorta is wit hin normal limits. OSSEOUS: No significant osseous lesions.No fractures. Small Schmorl's node invagination in the poste rior aspect of the inferior endplate of T11. Another Schmorl's node invagination is seen in the infe rior endplate of L4. Chronic disc space narrowing at L5-S1 level noted. No evidence of osteomyeliti s in the spinal column. ABDOMEN: GI: Colectomy and right-sided ileostomy is again noted. Stomach is not distended. Appearance of the anterior abdominal wall reflects prior surgeries but there is no evidence of active hernia no abnorm al collection. Multiple nasty mostly is are noted from prior small bowel resections. However, there is no high-grade bowel obstruction and there are no abnormal mesenteric masses. No evidence of free air, and no evidence of abscess. LIVER: There are no focal hepatic lesions nor dilatation of intrahepatic ducts. GALLBLADDER/BILIARY: No acute gallbladder pathology evident. CBD diameter upper normal. PANCREAS: No evidence of pancreatic mass nor dilatation of the pancreatic duct. SPLEEN: Spleen is not enlarged. There are no intrasplenic lesions. Splenic and portal veins are briseno nt. ADRENALS: There are no significant adrenal masses. KIDNEYS: No calculi nor hydronephrosis. No solid renal masses. No cysts evident. ABDOMINAL AORTA: Abdominal aorta is not enlarged. LYMPH NODES: There is no retroperitoneal nor paraaortic adenopathy. ABDOMINAL WALL: No evidence of significant anterior abdominal wall nor inguinal hernia. PELVIS: LYMPH NODES: There is no intrapelvic nor inguinal adenopathy. GI: Appendix surgically absent (colectomy). URINARY BLADDER: Under distended. 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 Again noted is a nonexpansile sclerotic benign-appearing bone lesion in the l eft iliac bone, unchanged. IMPRESSION: 1. No significant acute intrathoracic findings. 2. Evidence of previous colectomy, multiple small bowel surgeries and right-sided ileostomy. However , there is no evidence of small-bowel obstruction, free air, nor abscess. 3. Mild osseous findings as described above but no evidence of osteomyelitis. 4. Ankylosis of the sacroiliac joints again noted which is most probably related to chronic inflammat ory bowel disease. RADIATION DOSE DELIVERED: 1,143.41mGy.cm Total DLP DATA REPOSITORY: All CT scans at this facility are submitted to the National Radiology Data Registry (NRDR) Dose Index Registry (DIR) with the [employer] (A[employer]). RADIATION OPTIMIZATION: All CT scans at this facility use at least one of these dose optimization te chniques: automated exposure control; mA and/or kV adjustment per patient size (includes targeted exa ms where dose is matched to clinical indication); or iterative reconstruction.
--- NOTE | 2024-04-24 08:58 | HPE_ITS ---
Date of service: 04/24/24 Time of Service: 08:59 Assessment and Plan Assessment and plan (1) Depression: Status: Chronic (2) Methadone use: Status: Acute (3) Chronic prescription opiate use: Status: Chronic (4) Raynaud's disease: Status: Acute (5) Dyspnea on exertion: Status: Acute (6) Unintended weight loss: Status: Chronic (7) Vitamin B12 deficiency: Status: Acute (8) Malnutrition: Status: Acute Assessment and plan: Midline placed. Continue TPN. Patient has very low tolerance for oral due to pain from Crohn's. 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 (9) Elevated liver function tests: Status: Acute Assessment and plan: Most likely from reaction to daptomycin and Levaquin. Will trend LFTs (10) Ileostomy status: Status: Chronic (11) Crohn's disease: Status: Chronic Assessment and plan: Surgical cure is not currently on any medications. He does not follow-up with GI. Qualifiers: Gastrointestinal tract location: small and large intestine Digestive disease complication type: without complication Qualified Code(s): K50.80 - Crohn's disease of both small and large intestine without complications (12) Short gut syndrome: Status: Chronic Assessment and plan: Continue TPN Adjust for potassium Qualifiers: Short bowel syndrome type: without colon in continuity Qualified Code(s): K90.822 - Short bowel syndrome without colon in continuity (13) Chronic abdominal pain: Status: Acute (14) Bacteremia associated with intravascular line: Status: Acute Assessment and plan: Recurrence of fever chills and worsening of white count. Patient had good response to Vanco a week ago. Will restart Vanco. Pharmacy to dose. Blood culture and removed midline and culture tip Check echo for heart vegetations CT to rule out other source Redness and swelling in arm, ultrasound in a.m. for DVT. Hopefully will be able to find an antibiotic will cover his bacteremia/not cause complications/we can do once a days dosing so patient can go home. Case is discussed with anesthesia/pharmacy/for management Qualifiers: Encounter type: initial encounter Qualified Code(s): T82.7XXA - Infection and inflammatory reaction due to other cardiac and vascular devices, implants and grafts, initial encounter; R78.81 - Bacteremia (15) Smoker: Status: Acute (16) Fever: Status: Acute (17) Fatigue: (18) Elevated PSA: (19) Hyperkalemia: Status: Acute (20) Left arm swelling: Status: Acute (21) Catheter-related bloodstream infection (CRBSI): Status: Acute (22) Cellulitis of left upper arm: Status: Acute (23) Anxiety: Status: Chronic Assessment and plan: Healthcare anxiety/ PTSD from childhood hospitalizations and surgery -pt doesn' not want to do SSRI. use ativan for short-term This document was created with voice activated software and may contain errors. 20 mins spent in direct pt care and 60 in non face to face time History of Present Illness Narrative: Patient is a 58-year-old male who is well-known to me. He has a history of short gut syndrome secondary to Crohn's. He does follow TPN daily for nutrition. He has severe pain and cannot tolerate eating due to pain and or absorbing nutrients from food. He had a Groshong catheter that was removed on 04/17 due to high fevers. His blood cultures grew out staph epidermis. It was susceptible to fluoroquinolones and daptomycin. However on fluoroquinolones and daptomycin both cause elevated LFTs. On 04/23 he started developing fevers and had a fever of 105 at home and fever 101 infusion yesterday. Catheters site shows some redness. He also had labs done yesterday which showed increasing of his LFTs and a white count 17. His Groshong was removed on 04/17. This grew out staph epi as well. Patient refused to stay in the hospital and left after 20 hours. He did get a dose of vancomycin in the ER. He also got an echo in the ER which was negative for valvular disease. We did put a midline catheter in and put him on half-strength TPN through [facility]. He was put on daptomycin so he would only have to come once daily for IV antibiotics. After 48 hours his LFTs were elevating. He was switched over to Levaquin 750 mg IV. After 48 hours he continues to have fevers. He had labs today which shows an 18,000 white count. CRP of 15 which is significantly elevated. He is admitted today for IV antibiotics. The midline was removed and sent for line tip culture. Repeat IV blood cultures are done. We will repeat an echo in light of further fever chills and elevated white count. He has also developed elevated LFTs. We will continue to monitor those. A1c is now 6.0. Hopefully these will come down now that the Dapto and the Levaquin have been stopped. He is oxacillin resistant. Review of Systems All systems reviewed & are unremarkable except as noted in HPI and below PFSH All Active Problems (Updated 04/24/24 @ 22:05 by Enedina Jensen DO) Anxiety (Chronic) Cellulitis of left upper arm (Acute) Catheter-related bloodstream infection (CRBSI) (Acute) Left arm swelling (Acute) Hyperkalemia (Acute) Chronic abdominal pain (Acute) Bacteremia associated with intravascular line (Acute) Fever (Acute) Chronic prescription opiate use (Chronic) Short gut syndrome (Chronic) Malnutrition (Acute) Internal derangement of right knee (Acute) Osteoarthritis of right knee (Acute) Vitamin B12 deficiency (Acute) Dyspnea on exertion (Acute) Depression (Chronic) Raynaud's disease (Acute) Smoker (Acute) Vision changes (Acute) Joint pain (Acute) Ileostomy status (Chronic) Crohn's disease (Chronic) History of total right knee replacement (Acute 02/09/21) Arthrofibrosis of total knee arthroplasty (Acute) RIGHT S/P Manipulation: 04/20/2021 Pain in elbow joint (Acute) Ulnar abutment syndrome of both wrists (Acute) Degenerative arthritis of carpometacarpal joint of thumb (Acute) Elevated liver function tests (Acute) Methadone use (Acute) Unintended weight loss (Chronic) Medical History (Updated 04/24/24 @ 22:05 by Enedina Jensen DO) Sinus pain Postprandial vomiting Syncope Fatigue Abdominal pain Liver mass Disease of gallbladder, unspecified Infected cyst of skin tx with abx Preventative health care Encounter for therapeutic drug level monitoring Preoperative examination Atrial enlargement, left Situational depression Dyspnea Neck pain Radiculopathy affecting upper extremity Other postprocedural complications and disorders of genitourinary system post procedure testicular pain Hip pain Gallstones Tongue lesion Anemia Hematuria Pelvic pain Other complications following infusion, transfusion and therapeutic injection, subsequent encounter Right knee pain RBBB RUQ pain Complaint of pain of toe Bilateral thumb pain Elevated PSA Pain of knee joint on movement Paresthesia Breast lump History of pneumonia Pulmonary nodule Prostate cancer Surgical History (Updated 04/19/24 @ 00:01 by GABO WHITLOCK) History of creation of ostomy had in situ since 1988 Hx of total knee arthroplasty Cataract extraction status Social History Smoking/Tobacco Use Status: Current every day Tobacco Type: cigarettes Tobacco: How many years used: 44 Smoking risk assessment performed?: Yes Alcohol Intake: never Drug use: Socially Substance use type: former substance user and marijuana Household members: none Housing: apartment current occupation: Disabled Current gender identity: male Do you feel safe at home: Yes Do you feel safe in your relationship?: Yes Additional Social history: lives alone Meds Allergies and Home Medications Allergies Allergy/AdvReac Type Severity Reaction Status Date / Time No Known Allergies Allergy Verified 04/17/24 12:03 Home Medications Medication Instructions Recorded Confirmed Type diphenoxylate-atropine 2.5 4 tab PO TID 12/08/20 04/24/24 History mg-0.025 mg tablet (Lomotil) diclofenac sodium 1 % topical gel 2 - 4 g topical QID PRN Hand pain 02/07/21 04/24/24 History (Voltaren) naloxone 4 mg/actuation nasal 1 spray intranasal Q3M 02/07/21 04/24/24 History spray (Narcan) nicotine 14 mg/24 hr daily 1 patch transdermal DAILY 02/07/21 04/24/24 History transdermal patch (Nicoderm CQ) hydrocodone 10 mg-acetaminophen 2 tab PO Q8H PRN 03/23/21 04/24/24 History 325 mg tablet ondansetron HCl 4 mg tablet 4 mg PO Q6H PRN 03/23/21 04/24/24 History (Zofran) cyanocobalamin (vitamin B-12) 1,000 mcg subcut .[id number] 10/09/22 04/24/24 History 1,000 mcg/mL injection kit ferrous sulfate 325 mg (65 mg 325 mg PO DAILY 10/09/22 04/24/24 History iron) tablet multivit,Ca,min-iron 8 mg-folic 1 tab PO DAILY 10/09/22 04/24/24 History acid 200 mcg-lycopene 600 mcg tablet (Centrum Men) methadone 10 mg tablet (Dolophine) 10 mg PO TID 10/23/22 04/24/24 History ibuprofen 600 mg tablet 600 mg PO TID #42 tabs 07/26/23 04/24/24 Rx omeprazole 20 mg capsule,delayed 20 mg PO BID #28 caps 07/26/23 04/24/24 Rx release daptomycin 500 mg intravenous 700 mg IV Q24H 04/18/24 04/24/24 Rx solution Exam Const Other: PHYSICAL EXAM GENERAL APPEARANCE: Alert, healthy appearance, oriented, x 3,? in no acute distress HYDRATION: Well hydrated HEAD, EYES, EARS, NECK, THROAT: Head is normocephalic, pupils equal, round, reactive to light and accommodation, ocular movement intact, sclera clear and no jaundice. ?Dentition intact. No thrush NECK: no lymphadenopathy.? Trachea midline.? Neck supple.? LUNGS: normal respiration/normal chest excursion. ?Clear to auscultation bilaterally. ?No wheeze. ?HEART: Regular rate and rhythm. no murmurs EXTREMITY: No edema or cyanosis.? no leg pain, redness, swelling.? Left upper arm exhibits redness where the midline once there is also swelling and edema of the subcutaneous tissues of the upper arm tenderness where the previous midline was concern for DVT. Will check ultrasound in AM. ABDOMEN: Multiple surgical incisions noted. He is a right-sided ileostomy. No hernias. No abdominal pain. Results Labs 04/24/24 10:51 04/24/24 10:51 Time Spent Time spent with Patient: >75 minutes Time was spent: preparing to see the patient(eg.review tests), obtaining and/or reviewing separately otained hiistory, ordering medications,tests, procedures, referring, communicating with other health critical care physician, indepentently interpreting results, counseling the patient and care coordination
[2024-04-24 10:16] VITALS: BP 126/79; PULSE 91; RESP 20; TEMP 37.6; O2SAT 100
[2024-04-24 11:12] LABS: Abs Immature Grans 0.08 10^3/uL (0.0-0.06); Absolute Lymphocyte Count 1.58 10^3/uL (1.2-3.4); Absolute Monocyte Count 2.06 10^3/uL (0.1-0.8); Absolute Neutrophil Count 14.61 10^3/uL (1.2-6.7); Basophils % 0.2 %; HCT 39.9 % (40.0-50.0); HGB 13.5 g/dL (13.5-17.5); Immature Grans % 0.4 %; Lymphocytes % 8.6 %; MCH 31.5 pg (27.0-33.0); MCHC 33.8 % (32.0-36.0); MCV 93 fL (80-95); Monocytes % 11.2 %; Neutrophils % 79.6 %; Platelet Count 296 10^3/uL (130-400); RBC 4.29 10^6/uL (4.36-5.78); RDW 13.5 % (11.8-14.1); RDW-SD 45.6 fL; WBC 18.36 10^3/uL (4.4-10.8)
[2024-04-24 11:14] LABS: Absolute Basophil Count 0.04 10^3/uL (0.0-0.2)
[2024-04-24 11:26] LABS: Diff Comment Agrees w/ Instrument; RBC Morphology Normal
[2024-04-24] MEDS: VANCOMYCIN/WATER (PEG) 2 GM/400 ML BAG IV (11:27)
[2024-04-24 11:35] LABS: ALT 208 U/L (16-63); AST 59 U/L (15-37); Albumin 3.5 g/dL (3.4-5.0); Alkaline Phosphatase 211 U/L (46-116); Anion Gap 11.2 mmol/L (3-11); BUN 13 mg/dL (7-18); Bilirubin, Total 1.8 mg/dL (0.2-1.0); CO2 22.8 mmol/L (21.0-32.0); CREATININE 1.4 mg/dL (0.70-1.30); Calcium 9.7 mg/dL (8.5-10.1); Calculated LDL 92 mg/dL (<100); Chloride 101 mmol/L (98-107); Cholesterol 155 mg/dL (<200); Glucose 112 mg/dL (74-106); HDL Cholesterol 50 mg/dL (40-60); Potassium 5.2 mmol/L (3.5-5.1); Sodium 135 mmol/L (136-145); Total Protein 7.5 g/dL (6.4-8.2); Triglyceride 68 mg/dL (<150)
[2024-04-24 11:53] LABS: C-Reactive Protein 14.35 mg/dL (<or=0.5)
--- NOTE | 2024-04-24 12:02 | TELEFU_ITS ---
Date of service: 04/24/24 Time of Service: 12:02 Nutrition Note NOTE: Received consult regarding TPN recommendations. Pt is 58yo male admitted with bacteremia and sepsis with elevated LFT's associated with antibiotics. Pt has hx of Crohn's with resulting in colectomy and short bowel syndrome. Estimated energy needs: 1983kcals (REE x 1.2 AF) and 93-117g protein (1.2-1.5g per kg in the setting of infection) and 1983mL fluid (1mL per kcal) Vitamin D labs were low last month and twice when taken in 2022. Low H/H (iron being repleted). Calcium and B12 currently wnl. Elevated glucose - A1C pending. Current order for TPN run at 85mL per hour with electrolytes, mvi and trace tazlina ents and added 250ml 20% lipid results in 1520kcals, 85g protein and 50g lipid, meeting 77% of estimated energy needs and 91% of lower end of protein needs. Suggest monitoring TPN toleration and daily weights. Would recommend considering moving to / clinimix solution at same rate of 85mL per hour over 12 hours. With 250mL bag of lipids results in 1920kcal and 100g protein, which I think would more closely meet his current nutrition needs. Recommend supplemental vitamin D to help correct current deficiency - 50,000IU cholecalciferol weekly. Time Spent in Nutritional Counseling and Treatment: 30 minutes
[2024-04-24] MEDS: LORazepam 1 MG TAB PO ×3 (12:50→20:35)
[2024-04-24] MEDS: Enoxaparin 40 MG/0.4 ML SYR SC (12:51)
[2024-04-24] MEDS: Ibuprofen 600 MG TAB PO ×2 (13:50→20:35)
[2024-04-24] MEDS: Methadone 10 MG TAB PO ×2 (13:51→20:35)
[2024-04-24 14:59] VITALS: BP 119/69; PULSE 91; RESP 17; TEMP 37.2; O2SAT 96
[2024-04-24 15:57] LABS: Vancomycin, Random 34.4 ug/mL
[2024-04-24] MEDS: Normal Saline - Diluent 50 ML VIAL IJ (16:51)
[2024-04-24] MEDS: Omnipaque 350 MG/ML 100 ML BTL IJ (16:56)
[2024-04-24] MEDS: Normal Saline Flush 10 ML SYR IVP (16:57)
[2024-04-24] MEDS: metroNIDAZOLE 500 MG/100 ML BAG 100 MG IVPB (17:10)
--- NOTE | 2024-04-24 17:54 | DI.VRAD_ITS ---
Addendum created by Estela Deng MD on 04/24/2024 6:42:24 PM EDT: Prior report April 16, 2024 has been made available. Initial report created on 04/24/2024 5:53:57 PM EDT: PROCEDURE INFORMATION: Exam: CT Chest With Contrast; Diagnostic Exam date and time: 04/24/2024 4:50 PM Age: 58 years old Clinical indication: Other: Bactremia/elvated wbc; Prior surgery; Surgery date: 6+ months; Surgery type: Over [address] [facility] age of 10. Chrons. Now septic TECHNIQUE: Imaging protocol: Diagnostic computed tomography of the chest with contrast. 3D rendering (Not supervised by radiologist): MIP and/or 3D reconstructed images were created by the technologist. Contrast material: OMNIPAQUE 350; Contrast volume: 100 ml; Contrast route: INTRAVENOUS (IV); COMPARISON: CT CHEST PE CTA 05/27/2023 11:57 FINDINGS: Lungs: Unremarkable. No consolidation. No masses. Pleural spaces: Mild apical pleural thickening. Heart: Unremarkable. No cardiomegaly. No pericardial effusion. Coronary arteries: Calcified coronary arteries. Lymph nodes: Unremarkable. No enlarged lymph nodes. Vasculature: Atherosclerotic disease. Diaphragm: Small hiatal hernia. Bones/joints: Unremarkable. No acute fracture. Soft tissues: Gynecomastia. IMPRESSION: No acute findings. PROCEDURE INFORMATION: Exam: CT Abdomen And Pelvis With Contrast Exam date and time: 04/24/2024 4:50 PM Age: 58 years old Clinical indication: Other: Bactremia/elvated wbc; Prior surgery; Surgery date: 6+ months; Surgery type: Over 50 colon surgeries sin age of 10. Chrons. Now septic TECHNIQUE: Imaging protocol: Computed tomography of the abdomen and pelvis with contrast. 3D rendering (Not supervised by radiologist): MIP and/or 3D reconstructed images were created by the technologist. Contrast material: OMNIPAQUE 350; Contrast volume: 100 ml; Contrast route: INTRAVENOUS (IV); COMPARISON: CT ABDOMEN PELVIS W 16/04/2024 11:54 FINDINGS: Tubes, catheters and devices: Surgical clips in the pelvis similar to prior study. Diaphragm: Small hiatal hernia. Liver: Normal. No mass. Gallbladder and bile ducts: Distended gallbladder. Common bile duct measures 1.0 cm. Pancreas: Normal. No ductal dilation. Spleen: Normal. No splenomegaly. Adrenal glands: Normal. No mass. Kidneys and ureters: Normal. No hydronephrosis. Stomach and bowel: Surgical clips involving multiple loops of bowel consistent with history of multiple prior surgeries. Right lower quadrant ostomy site. The rectum, sigmoid colon, and right colon are surgically absent. There is no definite remaining colon. Normal caliber loops of small bowel. Appendix: No evidence of appendicitis. Intraperitoneal space: Unremarkable. No free air. No significant fluid collection. Vasculature: Mild atherosclerotic disease. Lymph nodes: Stable lobulated 2.2 cm mass anterior to the inferior vena cava series 5, image 29 likely representing a lymph node. Urinary bladder: Unremarkable as visualized. Reproductive: Unremarkable as visualized. Bones/joints: Stable sclerotic lesion in the left iliac wing compared with prior study.. Soft tissues: Postsurgical changes of the anterior abdominal wall similar to prior study. IMPRESSION: 1. Distended gallbladder with dilated common bile duct measuring 1.0 cm. 2. 2.2 cm right retroperitoneal mass consistent with a lymph node similar to prior study. 3. Surgically absent colon. Right lower quadrant ostomy site. 4. Additional findings as discussed above. Dictated and Authenticated by: Estela Deng MD. Ordering:YUMI Mcconnell MD
[2024-04-24 20:33] VITALS: BP 125/69; PULSE 80; RESP 18; TEMP 37.2; O2SAT 95
[2024-04-24] MEDS: Omeprazole 20 MG CAPCR PO (20:35)
[2024-04-24 23:48] VITALS: BP 120/65; PULSE 70; RESP 16; TEMP 36.6; O2SAT 97
--- NOTE | 2024-04-25 | DI.US_ITS ---
APPROVED REPORT EXAM: Comprehensive 2D, Doppler, and color-flow Echocardiogram Patient Location: In-Patient Quarry Manager: Caitlin Rabago RT (R) (CT) RD Rhythm: NSR Indications: Bactremia. Valve vegetations. Other Information Study Quality: Good Conclusion Normal left ventricular wall thickness and chamber size. Ejection fraction is 60 to 65%. Wall motio n is normal Normal right ventricular size and function Both atria are normal in size There is no structural or hemodynamically significant valvular disease. Specifically, no valvular ve getations are identified Wall motion Left Ventricle The left ventricle is normal size. The left ventricular systolic function is normal. There is normal left ventricular wall thickness. Wall motion scoring is all normal. The left ventricular diastolic fu nction is normal. There is no ventricular septal defect visualized. LVEF is 60-65%. Right Ventricle The right ventricle is normal size. The right ventricular systolic function is normal. There is mattie l right ventricular wall thickness. Atria The left atrium size is normal. The right atrium size is normal. The interatrial septum is intact wit h no evidence for an atrial septal defect. Aortic Valve Aortic valve is trileaflet. Aortic valve leaflets are mildly thickened. There is no aortic valvular s tenosis. No aortic regurgitation is present. Mitral Valve The mitral valve is normal in structure. No evidence of mitral valve stenosis. Trace mitral regurgita tion. Tricuspid Valve The tricuspid valve is normal in structure. There is no tricuspid valve stenosis. Mild tricuspid regu rgitation. Pulmonic Valve The pulmonary valve is normal in structure. There is no pulmonic valvular stenosis. There is no pulmo martha valvular regurgitation. Great Vessels The aortic root is normal in size. The pulmonary artery is normal. The ascending aorta is normal in s ize. IVC is normal in size and collapses >50% with inspiration. Pericardium There is no pericardial effusion. 2D Dimensions IVSD d PLAX 0.82 cm M: 0.6-1.2 Ao Root d 2.90 cm M: 3.1 - 3.7 LVPW d PLAX 0.86 cm M: 0.6 - 1.2 Ao Asc Diam d 3.17 cm M: 2.6 - 3.4 LVID d PLAX 4.66 cm M: 4.2 - 5.8 Prox Ao Arch 2.8 cm LVDs 2.46 cm M: 2.5 - 4.0 IVC Diam exp d SLAX 1.5 cm LV EF Teichholz 78.5 % FS 47.06 % LV EDV (Teich) 100.1 mL LV ESV (Teich) 21.6 mL M-Mode TAPSE 2.22 cm (M/F) >1.7 Auto EF LV EDV A4C 65.8 mL LV EDV A2C 91.7 mL LV EDV BP 79.0 mL LV ESV A4C 24.3 mL LV ESV A2C 35.3 mL LV ESV BP 29.2 mL LVEF(%) A4C 63.1 % LVEF(%) A2C 61.5 % LVEF(%) BP 63.1 % LV SV A4C 41.6 ml LV SV A2C 56.4 ml LV SV BP 49.8 ml LV CO A4C 3.1 L/min LV CO A2C 4.7 L/min LV CO BP 3.9 L/min HR A4C 75.32 BPM HR A2C 83.54 BPM LV EDV Index (BP) LV Strain Long Pk Overal Avg (s) 17.27 LA Volume LA Length A4C 6.3 cm LA Length A2C 5.7 cm LA Area A4C s 17.76 cm2 LA Area A2C s 18.19 cm2 LA Vol A4C A-L 42.52 mL LA Vol A2C A-L 49.07 mL LA Vol Biplane A-L 47.9 mL LA Vol/BSA A4C A-L LA Vol/BSA A2C A-L LA Vol/BSA BP A-L 23.7 mL/m2 LA Vol A4C MOD 40.8 mL LA Vol A2C MOD 44.8 mL LA Vol BP MOD 42.7 mL LV Diastology MV E' medial 0.086 (>0.07 m/s) MV E Vmax 0.61 (0.4-1.3 m/s) MV E/E' MED 7.12 (<14) MV A Vmax 0.70 (0.4-1.3 m/s) MV E' lateral 0.133 (>0.1 m/s) E/A Ratio 0.9 MV E/E' LAT 4.62 (<14) MV E' Average 0.109 m/s MV E/E'(average) 5.60 Aortic Valve LVOT Vmax 1.39 m/s LVOT Peak Grad 7.8 mmHg LVOT VTI 0.217 m LVOT Mean Grad 3.3 mmHg LVOT SV 62.02 mL LVOT Diam s 1.90 cm Mitral Valve MV DT 171 (160-240 msec) Pulm Vein s 0.58 m/s Pulm Vein d 0.43 m/s Pulm Vein a 0.28 m/s Pulmonary Valve RVOT Vmax 0.99 m/s RVOT Peak Gr. 3.9 mmHg RVOT VTI 0.181 m RVOT Mean Gr. 2.0 mmHg Tricuspid Valve RA Pressure 3.00 mmHg TR Vmax 2.26 m/s TV S' 0.17 m/s TR Peak Grad 20.4 mmHg RVSP (TR) 23.5 mmHg
[2024-04-25] MEDS: metroNIDAZOLE 500 MG/100 ML BAG 100 MG IVPB ×3 (00:47→16:17)
[2024-04-25 06:57] LABS: Abs Immature Grans 0.21 10^3/uL (0.0-0.06); Absolute Lymphocyte Count 2.14 10^3/uL (1.2-3.4); Absolute Monocyte Count 1.71 10^3/uL (0.1-0.8); Basophils % 0.7 %; Eosinophils % 1.5 %; HCT 35.6 % (40.0-50.0); HGB 12.1 g/dL (13.5-17.5); Immature Grans % 1.5 %; Lymphocytes % 15.7 %; MCH 31.4 pg (27.0-33.0); MCV 93 fL (80-95); MPV 11.5 fL (8.0-11.0); Monocytes % 12.5 %; Neutrophils % 68.1 %; Platelet Count 280 10^3/uL (130-400); RBC 3.85 10^6/uL (4.36-5.78); RDW 13.4 % (11.8-14.1); RDW-SD 45.6 fL; WBC 13.64 10^3/uL (4.4-10.8)
[2024-04-25 07:00] LABS: Absolute Neutrophil Count 9.29 10^3/uL (1.2-6.7)
[2024-04-25 07:12] LABS: C-Reactive Protein 15.95 mg/dL (<or=0.5); Lipase 11 U/L (16-77); Magnesium 2.1 mg/dL (1.8-2.4); PHOSPHORUS 3.1 mg/dL (2.6-4.7)
[2024-04-25 07:15] LABS: ALT 144 U/L (16-63); AST 34 U/L (15-37); Albumin 2.9 g/dL (3.4-5.0); Alkaline Phosphatase 181 U/L (46-116); Anion Gap 8.1 mmol/L (3-11); BUN 18 mg/dL (7-18); Bilirubin, Total 1.6 mg/dL (0.2-1.0); CO2 24.9 mmol/L (21.0-32.0); CREATININE 1.2 mg/dL (0.70-1.30); Calcium 9.2 mg/dL (8.5-10.1); Chloride 100 mmol/L (98-107); Estimated GFR 69.66 (mL/min/1.73m2); Glucose 101 mg/dL (74-106); Potassium 4.5 mmol/L (3.5-5.1); Sodium 133 mmol/L (136-145); Total Protein 6.9 g/dL (6.4-8.2)
[2024-04-25] MEDS: LORazepam 1 MG TAB PO ×4 (07:17→18:09)
[2024-04-25] MEDS: Omeprazole 20 MG CAPCR PO ×2 (07:18→21:03)
[2024-04-25 07:21] VITALS: BP 123/72; PULSE 78; RESP 16; TEMP 37.2; O2SAT 95
[2024-04-25 07:26] LABS: Diff Comment Agrees w/ Instrument; RBC Morphology Normal; Vancomycin, Random 8.1 ug/mL
[2024-04-25 07:45] LABS: D-Dimer 724 ng/mlFEU (<500)
--- NOTE | 2024-04-25 08:00 | DI.US_ITS ---
Exam(s) US UPPER EXTREMITY VENOUS LT EXAM: US UPPER EXTREMITY VENOUS LT CLINICAL HISTORY: r/o septic embolism. TECHNIQUE: Ultrasound examination of the left upper extremity venous system(s) is performed using gr ayscale, color-flow, and spectral Doppler analysis. COMPARISON: No exams were available for comparison FINDINGS: Left Deep Veins:The visualized internal jugular is patent. There is occlusive thrombus seen in the l eft axillary vein measuring approximately 10 cm in length. It extends into the subclavian vein by 1 cm. The remainder of the subclavian vein is patent and compressible. The brachial vein is patent an d displaced normal color flow, augmentation and compressibility. Superficial Veins:The visualized cephalic and median cubital veins are patent and display normal colo r flow, augmentation and compressibility. There is occlusive thrombus seen in the basilic vein measu ring approximately 15 cm in length. Soft tissues: Unremarkable. IMPRESSION: 1. There is a DVT in the left axillary vein and extending 1 cm into the subclavian vein. 2. Superficial venous thrombosis involving the basilic vein measuring 15 cm in length. 3. Findings were discussed with Dr. Jensen at 12:15 p.m. on 04/25/2024. DATA REPOSITORY:
[2024-04-25] MEDS: Normal Saline Flush 10 ML SYR IVP ×4 (08:44→20:56)
--- NOTE | 2024-04-25 09:28 | PDOC.CMIN ---
Date of service: 04/25/24 Time of Service: 09:28 Care Management Initial Assmt Initial Assessment Reason for Hospitalization: Sepsis and bacteremia Functional Status/Living Situation Patient Presentation: Krishan was sitting up in bed visiting with his son when CM met with him. He was polite and agreeable to conversation. Krishan shared that he has been administering his own TPN and IV antibiotics at home. He was admitted to [facility] because he developed IV associated sepsis with S. epidermidis and required removal of his mid line. He will need to remain hospitalized likely through the weekend to ensure repeat cultures are negative. The antibiotic used to treat the bacteremia will most likely be Vancomycin but dose and frequency have yet to be determined. Krishan's preference would be to continue home infusions if possible. Town of Residence: [facility] Resides with: Alone Significant Other/Family: Out of area (son Krishan Murray, daughter Brenda) Natural Supports: son Krishan and ex- Eleni Employment Status: Disabled Instrumental Activities of Daily Living (ADLs): Independent Medications Medication Management: Issues/Barriers (will need home infusions for antibiotics and TPN) with Obtaining and Instructions/Directions Advance Directives Advance Directives: Do you have an Advance Directive: N 04/18/13 12:28 AD On File at [facility]: N 04/18/13 12:28 Date Asked 04/24/24 04/24/24 10:10 AD Date Reviewed COLST On File at [facility] No 03/24/23 08:53 COLST Date Scanned Code Status Resuscitation Status Full Code Portal Pt does not currently have a portal and education provided: No Insurance Coverage/Financial Issues Insurance: [facility] Medicare Replacement ACO Member: No Care Team Visit Care Team Role Provider Type Natty Mckinney MD Primary Care Provider [facility] STAFF PHYSICIAN Madelyn Ohara RDN, CDCES Other Providers OCCUPATIONAL NURSE Sabina Hansen Other Providers OCCUPATIONAL NURSEADY Kaur RDN Other Providers OCCUPATIONAL NURSE Anesthesia Consult Other Providers OTHER Enedina Jensen, DO Admit Provider OSTEOPATHIC DOCTOR Attending Provider Discharge Potential Discharge Needs: PCP F/U Appt Anticipated Barriers to Discharge: Medical Status Patient/Family Education Needs: Review discharge instructions, discuss Ask Me Three Transportation: Private vehicle Plan: Anticipate Krishan will be discharged home when medically cleared. He will need home TPN and either outpatient (Infusion Center) or home IV antibiotics. He will follow up with his community providers and plan of care and transport with a friend, CM will follow and support discharge planning needs. PFSH All Active Problems (Updated 04/24/24 @ 22:05 by Enedina Jensen DO) Anxiety (Chronic) Cellulitis of left upper arm (Acute) Catheter-related bloodstream infection (CRBSI) (Acute) Left arm swelling (Acute) Hyperkalemia (Acute) Chronic abdominal pain (Acute) Bacteremia associated with intravascular line (Acute) Fever (Acute) Chronic prescription opiate use (Chronic) Short gut syndrome (Chronic) Malnutrition (Acute) Internal derangement of right knee (Acute) Osteoarthritis of right knee (Acute) Vitamin B12 deficiency (Acute) Dyspnea on exertion (Acute) Depression (Chronic) Raynaud's disease (Acute) Smoker (Acute) Vision changes (Acute) Joint pain (Acute) Ileostomy status (Chronic) Crohn's disease (Chronic) History of total right knee replacement (Acute 02/09/21) Arthrofibrosis of total knee arthroplasty (Acute) RIGHT S/P Manipulation: 04/20/2021 Pain in elbow joint (Acute) Ulnar abutment syndrome of both wrists (Acute) Degenerative arthritis of carpometacarpal joint of thumb (Acute) Elevated liver function tests (Acute) Methadone use (Acute) Unintended weight loss (Chronic) Medical History (Updated 04/24/24 @ 22:05 by Enedina Jensen DO) Sinus pain Postprandial vomiting Syncope Fatigue Abdominal pain Liver mass Disease of gallbladder, unspecified Infected cyst of skin tx with abx Preventative health care Encounter for therapeutic drug level monitoring Preoperative examination Atrial enlargement, left Situational depression Dyspnea Neck pain Radiculopathy affecting upper extremity Other postprocedural complications and disorders of genitourinary system post procedure testicular pain Hip pain Gallstones Tongue lesion Anemia Hematuria Pelvic pain Other complications following infusion, transfusion and therapeutic injection, subsequent encounter Right knee pain RBBB RUQ pain Complaint of pain of toe Bilateral thumb pain Elevated PSA Pain of knee joint on movement Paresthesia Breast lump History of pneumonia Pulmonary nodule Prostate cancer Surgical History (Updated 04/19/24 @ 00:01 by GABO WHITLOCK) History of creation of ostomy had in situ since 1988 Hx of total knee arthroplasty Cataract extraction status Social History Smoking/Tobacco Use Status: Current every day Tobacco Type: cigarettes Tobacco: How many years used: 44 Smoking risk assessment performed?: Yes Alcohol Intake: never Drug use: Socially Substance use type: former substance user and marijuana Household members: none Housing: apartment current occupation: Disabled Current gender identity: male Do you feel safe at home: Yes Do you feel safe in your relationship?: Yes Additional Social history: lives alone SDOH(Care Management) Screening Will the Patient Participate in the Screening?: Declined to provide Do you worry about having a steady place to live?: no
[2024-04-25] MEDS: VANCOMYCIN/WATER (PEG) 1 GM/200 ML BAG IV (11:50)
--- NOTE | 2024-04-25 13:03 | W.PM.PROGNOT ---
Date of Service Date of service: 04/25/24 Time of Service: 10:00 Assessment and Plan Assessment and plan (1) Catheter-related bloodstream infection (CRBSI): Status: Acute Assessment and plan: (1) Continue Vanco and Meropenum (2) Adjust PRN based on culture results and sensitivities. (3) Staph epi grew from both blood cultures and catheter tip cultures from 04/17/2024. (4) Preliminary culture results from 04/24/2024 show no growth. (5) WBC 18.3 --> 13.6 (2) Cellulitis of left upper arm: Status: Acute Assessment and plan: (1) Secondary to PICC line infection. (Catheter has been removed.) (3) Left arm swelling: Status: Acute Assessment and plan: (1) Related to recent PICC line infection. (2) Line has been removed. (3) Probably has thrombosis of cephalic/ or basillic vein related to recent PICC line infection. Should recannulize. Subjective Subjective Interval history since last seen: Patient seen and examined on rounds this morning covering General Surgery Service. Patient has long-standing history of Crohn's Disease and short gut syndrome as a consequence of numerous bowel resections. He is on life-long TPN for nutritional survival. His ~1.5 year old right IJ Tripp catheter became infected, requiring removal and IV antibiotics. A PICC line was placed at the left arm that also became infected and was removed. Cultures are reportedly pending. Presently, a functional PICC line is at the right arm. He continues on Vanco and Meropenum. Exam Eyes Other: Non-icteric Neck Other: Neck supple GI Other: A RLQ ileostomy appliance is present. Scars consistent with surgical history. Tenderness is present, but there are no peritoneal signs or symptoms. Extrem Other: There is no calf pain. Objective Last Vital Signs Temp 99.0 F 04/25/24 07:21 Pulse 78 04/25/24 07:21 Resp 16 04/25/24 07:21 BP 123/72 04/25/24 07:21 Pulse Ox 95 04/25/24 07:21 Laboratory Results - last 24 hr 04/24/24 04/25/24 15:34 06:00 WBC 13.64 H RBC 3.85 L Hgb 12.1 L Hct 35.6 L MCV 93 MCH 31.4 MCHC 34.0 RDW 13.4 Plt Count 280 MPV 11.5 H Immature Gran % 1.5 Neutrophils % 68.1 Lymphocytes % 15.7 Monocytes % 12.5 Eosinophils % 1.5 Basophils % 0.7 Nucleated RBC % 0.0 Absolute Neutrophils 9.29 H Absolute Lymphocytes 2.14 Absolute Monocytes 1.71 H Absolute Eosinophils 0.20 Absolute Basophils 0.10 RBC Morphology Normal D-Dimer 724 H Sodium 133 L Potassium 4.5 Chloride 100 Carbon Dioxide 24.9 Anion Gap 8.1 BUN 18 Creatinine 1.2 Est GFR (CKD-EPI 2020) 69.66 Glucose 101 Calcium 9.2 Phosphorus 3.1 Magnesium 2.1 Total Bilirubin 1.6 H AST 34 ALT 144 H Alkaline Phosphatase 181 H C-Reactive Protein 15.95 H Total Protein 6.9 Albumin 2.9 L Lipase 11 L Random Vancomycin 34.4 8.1 Time Spent with Patient Time Spent with Patient: <25 minutes Time was spent: preparing to see the patient(eg.review tests), obtaining and/or reviewing separately otained hiistory, indepentently interpreting results and counseling the patient
[2024-04-25 13:19] LABS: PTT Activated 29.8 sec (23.6-32.8)
[2024-04-25] MEDS: Heparin in 0.45% NaCl 25,000 UNIT/250 ML BAG 14 UNIT IV (13:33)
[2024-04-25 14:58] VITALS: BP 132/75; PULSE 80; RESP 17; TEMP 37.7; O2SAT 98
[2024-04-25 20:25] LABS: PTT Activated 87.3 sec (23.6-32.8)
[2024-04-25] MEDS: Ibuprofen 600 MG TAB PO (21:03)
[2024-04-26] VITALS: BP 108/57; PULSE 83; RESP 16; TEMP 36.2; O2SAT 97
[2024-04-26] MEDS: metroNIDAZOLE 500 MG/100 ML BAG 100 MG IVPB ×2 (00:03→07:16)
[2024-04-26 02:51] LABS: PTT Activated 74.6 sec (23.6-32.8)
[2024-04-26] MEDS: Heparin in 0.45% NaCl 25,000 UNIT/250 ML BAG 12.5 UNIT IV (04:11)
[2024-04-26] MEDS: LORazepam 1 MG TAB PO (06:08)
[2024-04-26 06:47] LABS: HCT 33.3 % (40.0-50.0); HGB 11.2 g/dL (13.5-17.5); MCH 31.5 pg (27.0-33.0); MCHC 33.6 % (32.0-36.0); MCV 94 fL (80-95); MPV 10.8 fL (8.0-11.0); Platelet Count 253 10^3/uL (130-400); RBC 3.56 10^6/uL (4.36-5.78); RDW 13.3 % (11.8-14.1); WBC 10.25 10^3/uL (4.4-10.8)
[2024-04-26 07:04] LABS: Anion Gap 9.5 mmol/L (3-11); BUN 18 mg/dL (7-18); CO2 22.5 mmol/L (21.0-32.0); Calcium 8.7 mg/dL (8.5-10.1); Chloride 105 mmol/L (98-107); Glucose 113 mg/dL (74-106); PHOSPHORUS 2.9 mg/dL (2.6-4.7); Potassium 4.6 mmol/L (3.5-5.1); Sodium 137 mmol/L (136-145)
[2024-04-26] MEDS: Omeprazole 20 MG CAPCR PO (07:15)
[2024-04-26] MEDS: Normal Saline Flush 10 ML SYR IVP (07:16)
[2024-04-26 07:40] VITALS: BP 128/89; PULSE 79; RESP 18; TEMP 37.1; O2SAT 96
--- NOTE | 2024-04-26 09:56 | W.PM.DS.N ---
Date of service: 04/26/24 Time of Service: 10:28 DS: Diagnosis Discharge Diagnosis (1) Catheter-related bloodstream infection (CRBSI): Status: Acute Asessment and Plan: (a) Right IJ Groshong catheter removed (b) Patient treated with IV antibiotics (c) Will need continued Vanco 1gm/200ml daily for another 10-14 days (2) Cellulitis of left upper arm: Status: Acute Asessment and Plan: (a) Cellulitis related to recent left arm (Basilic vein) thrombosis (3) Left arm swelling: Status: Acute Asessment and Plan: (a) Recent left arm venous thrombosis related to infected PICC line (has been removed). Discharge Plan Disposition Patient Disposition: Home Condition: Improving Discharge Details Reason For Visit: Bacteria/Sepsis Admit Date/Time: 04/24/24 08:50 Admit Provider: Enedina Jensen Attending Provider: Enedina Jensen Primary Care Provider: Natty Mckinney V Hospital Course Hospital Course: Patient has long-standing history of Crohn's Disease and short gut syndrome related to numerous bowel resections. On chronic TPN for nutritional support. Developed infected right IJ Groshong catheter place about 1/5 years ago. Catheter was removed. Blood cultures and catheter tip culture grew Staph epi. Patient treated with IV antibiotics and had left arm PICC line placed. This line became infected and patient developed left arm venous thrombosis. The PICC line was removed and a new PICC line placed at the right upper arm. WBC responded nicely falling from 18,400 to 10,200. Patient wishing to be discharged to home. Planning continued home infusion of TPN and Vanco. Patient will follow-up in the General Surgery Office with Dr. Jensen. Home Meds and New Rx's Prescriptions: No Action ondansetron HCl [Zofran] 4 mg Tablet 4 mg PO Q6H PRN hydrocodone-acetaminophen 10-325 mg Tablet 2 tab PO Q8H PRN diphenoxylate-atropine [Lomotil] 2.5-0.025 mg tablet 4 tab PO TID Centrum Men 8 mg iron- 200 mcg-600 mcg tablet 1 tab PO DAILY ferrous sulfate 325 mg (65 mg iron) tablet 325 mg PO DAILY Hold Instructions: Changed by Provider cyanocobalamin (vitamin B-12) 1,000 mcg/mL kit 1,000 mcg subcut .[id number] methadone [Dolophine] 10 mg tablet 10 mg PO TID Patient Comments: Pt. states he takes this medication 0900pm 0200am 0400am daptomycin 500 mg recon soln 700 mg IV Q24H Hold Instructions: Changed by Provider Rx Instructions: administer over 30 mins nicotine [Nicoderm CQ] 14 mg/24 hr Patch 24 Hour 1 patch TRANSDERMAL DAILY diclofenac sodium [Voltaren] 1 % Gel 2 - 4 g TOPICAL QID PRN (Reason: Hand pain) naloxone [Narcan] 4 mg/actuation [place],Non-Aerosol 1 spray INTRANASAL Q3M omeprazole 20 mg capsule,delayed release(DR/EC) 20 mg PO BID Qty: 28 0RF ibuprofen 600 mg tablet 600 mg PO TID Qty: 42 0RF Discharge Instructions Additional Instructions: (a) Resume all usual home meds and diet. (b) Recommend NOT taking the antibiotics in your refrigerator since these are believed to have increased your liver enzymes. (c) Continue nutritional support with daily TPN infusions. (d) Continue daily Vancomycin antibiotic infusions at least for next 7-10 days, or until seen in General Surgery Office. (Guzman 1 gm/200ml IV daily) Care Plan Goals: (a) Sterilize blood stream (b) Eventual insertion of new central line (Groshong or Tripp) for TPN Stand Alone Forms: Nursing Discharge Form Referrals: Enedina Jensen DO [OSTEOPATHIC DOCTOR] - (Follow-up to recent hospital admission for central line infection and sepsis. Call Sunday to get your appointment follow up ) Activity:: Activity as Tolerated Equipment/Supplies:: TPN & Vanco per Home Infu Diet:: TPN & PO as tolerated Discharge Orders Discharge Orders: Discharge Order (Routine); Ordered 04/26/24 Ordered By: Sy Nielsen Discharge Data Discharge Date/Time-TO BE ENTERED AT DEPARTURE: 04/26/24 10:21 DS: Summary Time Spent with Patient providing and/or coordinating discharge services: Greater than 30 minutes Specific discharge activities: Discharge summary, coordination of outpatient infusion(s) Status at Discharge Functional status at discharge: independent ambulation Overall status at discharge: patient is progressing back to baseline Mental Status: mental status grossly normal Speech and Movement: speech and movement normal Mood: congruent mood Affect: normal affect Quality:SDOH Health Related Social Needs: No Data to Display Exam Narrative Exam Narrative: Alert, pleasant, cooperative, and appropriate. Exhibits in-depth knowledge of medical history and condition(s). Eyes Other: Non-icteric Neck Other: Neck supple. Resp Other: Non-tachypneic Cardio Other: Denies chest pain. GI Other: Chronic abdominal tenderness associated with longstanding Crohn's Disease. Skin Other: Removed single Nylon suture at right upper chest. Extrem Other: There is no calf pain. Psych Mental Status: mental status grossly normal Speech and Movement: speech and movement normal Mood: congruent mood Affect: normal affect DS: Data Vitals/I&O Vitals and I&O: Vital Signs Temperature 98.8 F 04/26/24 07:40 Temperature Source Skin 04/26/24 07:40 Pulse 79 04/26/24 07:40 Pulse Rhythm Regular 04/25/24 22:23 Respiratory Rate 18 04/26/24 07:40 Respiratory Effort Normal, Non-Labored 04/25/24 22:23 Respiratory Depth Normal 04/25/24 22:23 Respiratory Pattern Normal 04/25/24 22:23 Blood Pressure 128/89 04/26/24 07:40 Pulse Oximetry 96 04/26/24 07:40 Oxygen Delivery Method Room Air 04/26/24 07:40 Oxygen Flow Rate 0 04/26/24 07:40 Pain Level 1 04/26/24 00:00 Comment Blood pressure done on right leg. 04/26/24 07:40 Intake & Output 04/25/24 04/25/24 04/26/24 11:59 23:59 11:59 Intake Total 700 / 3450.1 2750.1 / 3450.1 1064.123 / 1064.123 Output Total 900 / 1300 400 / 1300 Balance -200 / 2150.1 2350.1 / 2150.1 1064.123 / 1064.123 Intake: IV 200 / 1890.1 1690.1 / 1890.1 1064.123 / 1064.123 Oral 500 / 1560 1060 / 1560 Output: Urine 900 / 1300 400 / 1300 Other: Urine Color Straw Yellow Yellow Urine Appearance Clear Clear Comment 1 unknown void at the toilet. urinal Stool Characteristics Brown Voiding Methods Urinal Toilet Data Completed and Pending Labs on day of discharge: Labs from last 24 hours 04/26/24 04/26/24 04/26/24 06:36 06:36 06:36 WBC 10.25 RBC 3.56 L Hgb 11.2 L Hct 33.3 L MCV 94 MCH 31.5 MCHC 33.6 RDW 13.3 Plt Count 253 MPV 10.8 APTT Sodium 137 Potassium 4.6 Chloride 105 Carbon Dioxide 22.5 Anion Gap 9.5 BUN 18 Creatinine 1.0 Est GFR (CKD-EPI 2020) 86.70 Glucose 113 H Calcium 8.7 Phosphorus Cancelled 2.9 Magnesium 2.0 Cancelled 04/26/24 04/25/24 04/25/24 02:30 19:49 12:54 WBC RBC Hgb Hct MCV MCH MCHC RDW Plt Count MPV APTT 74.6 H 87.3 H* 29.8 Sodium Potassium Chloride Carbon Dioxide Anion Gap BUN Creatinine Est GFR (CKD-EPI 2020) Glucose Calcium Phosphorus Magnesium Preliminary micro results at discharge 04/24/24 11:00 Blood Culture - Preliminary Blood NO GROWTH 24 HOURS 04/24/24 10:51 Blood Culture - Preliminary Blood NO GROWTH 24 HOURS PFSH All Active Problems (Updated 04/24/24 @ 22:05 by Enedina Jensen DO) Anxiety (Chronic) Cellulitis of left upper arm (Acute) Catheter-related bloodstream infection (CRBSI) (Acute) Left arm swelling (Acute) Hyperkalemia (Acute) Chronic abdominal pain (Acute) Bacteremia associated with intravascular line (Acute) Fever (Acute) Chronic prescription opiate use (Chronic) Short gut syndrome (Chronic) Malnutrition (Acute) Internal derangement of right knee (Acute) Osteoarthritis of right knee (Acute) Vitamin B12 deficiency (Acute) Dyspnea on exertion (Acute) Depression (Chronic) Raynaud's disease (Acute) Smoker (Acute) Vision changes (Acute) Joint pain (Acute) Ileostomy status (Chronic) Crohn's disease (Chronic) History of total right knee replacement (Acute 02/09/21) Arthrofibrosis of total knee arthroplasty (Acute) RIGHT S/P Manipulation: 04/20/2021 Pain in elbow joint (Acute) Ulnar abutment syndrome of both wrists (Acute) Degenerative arthritis of carpometacarpal joint of thumb (Acute) Elevated liver function tests (Acute) Methadone use (Acute) Unintended weight loss (Chronic) Medical History (Updated 04/24/24 @ 22:05 by Enedina Jensen DO) Sinus pain Postprandial vomiting Syncope Fatigue Abdominal pain Liver mass Disease of gallbladder, unspecified Infected cyst of skin tx with abx Preventative health care Encounter for therapeutic drug level monitoring Preoperative examination Atrial enlargement, left Situational depression Dyspnea Neck pain Radiculopathy affecting upper extremity Other postprocedural complications and disorders of genitourinary system post procedure testicular pain Hip pain Gallstones Tongue lesion Anemia Hematuria Pelvic pain Other complications following infusion, transfusion and therapeutic injection, subsequent encounter Right knee pain RBBB RUQ pain Complaint of pain of toe Bilateral thumb pain Elevated PSA Pain of knee joint on movement Paresthesia Breast lump History of pneumonia Pulmonary nodule Prostate cancer Surgical History (Updated 04/19/24 @ 00:01 by GABO WHITLOCK) History of creation of ostomy had in situ since 1988 Hx of total knee arthroplasty Cataract extraction status Social History Smoking/Tobacco Use Status: Current every day Tobacco Type: cigarettes Tobacco: How many years used: 44 Smoking risk assessment performed?: Yes Alcohol Intake: never Drug use: Socially Substance use type: former substance user and marijuana Household members: none Housing: apartment current occupation: Disabled Current gender identity: male Do you feel safe at home: Yes Do you feel safe in your relationship?: Yes Additional Social history: lives alone Time Spent with Patient Time Spent with Patient: 45-69 minutes Time was spent: preparing to see the patient(eg.review tests), referring, communicating with other health long term care administrator, indepentently interpreting results, counseling the patient and care coordination
[2024-04-26] MEDS: Rivaroxaban 15 MG TABLET PO (09:59)
--- NOTE | 2024-04-26 11:50 | DSE_ITS ---
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 On chronic TPN for nutritional support. Developed infected right IJ Groshong catheter place about 1/5 years ago. Catheter was removed. Blood cultures and catheter tip culture grew Staph epi. Patient treated with IV antibiotics and had left arm PICC line placed. This line became infected and patient developed left arm venous thrombosis. The PICC line was removed and a new PICC line placed at the right upper arm. WBC responded nicely falling from 18,400 to 10,200. Patient wishing to be discharged to home. Planning continued home infusion of TPN and Vanco. Patient will follow-up in the General Surgery Office with Dr. Jensen. Home Meds and New Rx's Prescriptions: New Xarelto 15 mg Tablet 15 mg PO BID Qty: 30 0RF No Action ondansetron HCl [Zofran] 4 mg Tablet 4 mg PO Q6H PRN hydrocodone-acetaminophen 10-325 mg Tablet 2 tab PO Q8H PRN diphenoxylate-atropine [Lomotil] 2.5-0.025 mg tablet 4 tab PO TID Centrum Men 8 mg iron- 200 mcg-600 mcg tablet 1 tab PO DAILY ferrous sulfate 325 mg (65 mg iron) tablet 325 mg PO DAILY Hold Instructions: Changed by Provider cyanocobalamin (vitamin B-12) 1,000 mcg/mL kit 1,000 mcg subcut .[id number] methadone [Dolophine] 10 mg tablet 10 mg PO TID Patient Comments: Pt. states he takes this medication 0900pm 0200am 0400am daptomycin 500 mg recon soln 700 mg IV Q24H Hold Instructions: Changed by Provider Rx Instructions: administer over 30 mins nicotine [Nicoderm CQ] 14 mg/24 hr Patch 24 Hour 1 patch TRANSDERMAL DAILY diclofenac sodium [Voltaren] 1 % Gel 2 - 4 g TOPICAL QID PRN (Reason: Hand pain) naloxone [Narcan] 4 mg/actuation [place],Non-Aerosol 1 spray INTRANASAL Q3M omeprazole 20 mg capsule,delayed release(DR/EC) 20 mg PO BID Qty: 28 0RF ibuprofen 600 mg tablet 600 mg PO TID Qty: 42 0RF Discharge Instructions Additional Instructions: (a) Resume all usual home meds and diet. (b) Recommend NOT taking the antibiotics in your refrigerator since these are believed to have increased your liver enzymes. (c) Continue nutritional support with daily TPN infusions. (d) Continue daily Vancomycin antibiotic infusions at least for next 7-10 days, or until seen in General Surgery Office. ([place] 1 gm/200ml IV daily) Care Plan Goals: (a) Sterilize blood stream (b) Eventual insertion of new central line (Groshong or Tripp) for TPN Stand Alone Forms: Nursing Discharge Form Referrals: Enedina Jensen DO [OSTEOPATHIC DOCTOR] - (Follow-up to recent hospital admission for central line infection and sepsis. Call Sunday to get your appointment follow up ) Activity:: Activity as Tolerated Equipment/Supplies:: TPN & Vanco per Home Infu Diet:: TPN & PO as tolerated Discharge Data Discharge Date/Time-TO BE ENTERED AT DEPARTURE: 04/26/24 11:05 DS: Summary Time Spent with Patient providing and/or coordinating discharge services: Greater than 30 minutes Status at Discharge Functional status at discharge: independent ambulation Overall status at discharge: patient is progressing back to baseline Mental Status: mental status grossly normal Speech and Movement: speech and movement normal Mood: congruent mood Affect: normal affect Quality:SDOH Health Related Social Needs: No Data to Display Exam Psych Mental Status: mental status grossly normal Speech and Movement: speech and movement normal Mood: congruent mood Affect: normal affect DS: Data Vitals/I&O Vitals and I&O: Vital Signs Temperature 98.8 F 04/26/24 07:40 Temperature Source Skin 04/26/24 07:40 Pulse 79 04/26/24 07:40 Pulse Rhythm Regular 04/26/24 07:00 Respiratory Rate 18 04/26/24 07:40 Respiratory Effort Normal, Non-Labored 04/26/24 07:00 Respiratory Depth Normal 04/26/24 07:00 Respiratory Pattern Normal 04/26/24 07:00 Blood Pressure 128/89 04/26/24 07:40 Pulse Oximetry 96 04/26/24 07:40 Oxygen Delivery Method Room Air 04/26/24 07:40 Oxygen Flow Rate 0 04/26/24 07:40 Pain Level 1 04/26/24 00:00 Comment Blood pressure done on right leg. 04/26/24 07:40 Intake & Output 04/25/24 04/25/24 04/26/24 11:59 23:59 11:59 Intake Total 700 / 3450.1 2750.1 / 3450.1 1356.000 / 1356.000 Output Total 900 / 1300 400 / 1300 Balance -200 / 2150.1 2350.1 / 2150.1 1356.000 / 1356.000 Intake: IV 200 / 1890.1 1690.1 / 1890.1 1356.000 / 1356.000 Oral 500 / 1560 1060 / 1560 Output: Urine 900 / 1300 400 / 1300 Other: Urine Color Straw Yellow Yellow Urine Appearance Clear Clear Clear Comment 1 unknown void at the toilet. urinal Stool Characteristics Brown Voiding Methods Urinal Toilet Data Completed and Pending Labs on day of discharge: Labs from last 24 hours 04/26/24 04/26/24 04/26/24 06:36 06:36 06:36 WBC 10.25 RBC 3.56 L Hgb 11.2 L Hct 33.3 L MCV 94 MCH 31.5 MCHC 33.6 RDW 13.3 Plt Count 253 MPV 10.8 APTT Sodium 137 Potassium 4.6 Chloride 105 Carbon Dioxide 22.5 Anion Gap 9.5 BUN 18 Creatinine 1.0 Est GFR (CKD-EPI 2020) 86.70 Glucose 113 H Calcium 8.7 Phosphorus Cancelled 2.9 Magnesium 2.0 Cancelled 04/26/24 04/25/24 04/25/24 02:30 19:49 12:54 WBC RBC Hgb Hct MCV MCH MCHC RDW Plt Count MPV APTT 74.6 H 87.3 H* 29.8 Sodium Potassium Chloride Carbon Dioxide Anion Gap BUN Creatinine Est GFR (CKD-EPI 2020) Glucose Calcium Phosphorus Magnesium Preliminary micro results at discharge 04/24/24 11:00 Blood Culture - Preliminary Blood NO GROWTH 24 HOURS 04/24/24 10:51 Blood Culture - Preliminary Blood NO GROWTH 24 HOURS PFSH All Active Problems (Updated 04/26/24 @ 11:53 by Sy Nielsen DO) Venous thrombosis in left shoulder area (Acute) Anxiety (Chronic) Cellulitis of left upper arm (Acute) Catheter-related bloodstream infection (CRBSI) (Acute) Left arm swelling (Acute) Hyperkalemia (Acute) Chronic abdominal pain (Acute) Bacteremia associated with intravascular line (Acute) Fever (Acute) Chronic prescription opiate use (Chronic) Short gut syndrome (Chronic) Malnutrition (Acute) Internal derangement of right knee (Acute) Osteoarthritis of right knee (Acute) Vitamin B12 deficiency (Acute) Dyspnea on exertion (Acute) Depression (Chronic) Raynaud's disease (Acute) Smoker (Acute) Vision changes (Acute) Joint pain (Acute) Ileostomy status (Chronic) Crohn's disease (Chronic) History of total right knee replacement (Acute 02/09/21) Arthrofibrosis of total knee arthroplasty (Acute) RIGHT S/P Manipulation: 04/20/2021 Pain in elbow joint (Acute) Ulnar abutment syndrome of both wrists (Acute) Degenerative arthritis of carpometacarpal joint of thumb (Acute) Elevated liver function tests (Acute) Methadone use (Acute) Unintended weight loss (Chronic) Medical History (Updated 04/26/24 @ 11:53 by Sy Nielsen DO) Sinus pain Postprandial vomiting Syncope Fatigue Abdominal pain Liver mass Disease of gallbladder, unspecified Infected cyst of skin tx with abx Preventative health care Encounter for therapeutic drug level monitoring Preoperative examination Atrial enlargement, left Situational depression Dyspnea Neck pain Radiculopathy affecting upper extremity Other postprocedural complications and disorders of genitourinary system post procedure testicular pain Hip pain Gallstones Tongue lesion Anemia Hematuria Pelvic pain Other complications following infusion, transfusion and therapeutic injection, subsequent encounter Right knee pain RBBB RUQ pain Complaint of pain of toe Bilateral thumb pain Elevated PSA Pain of knee joint on movement Paresthesia Breast lump History of pneumonia Pulmonary nodule Prostate cancer Surgical History (Updated 04/19/24 @ 00:01 by GABO WHITLOCK) History of creation of ostomy had in situ since 1988 Hx of total knee arthroplasty Cataract extraction status Social History Smoking/Tobacco Use Status: Current every day Tobacco Type: cigarettes Tobacco: How many years used: 44 Smoking risk assessment performed?: Yes Alcohol Intake: never Drug use: Socially Substance use type: former substance user and marijuana Household members: none Housing: apartment current occupation: Disabled Current gender identity: male Do you feel safe at home: Yes Do you feel safe in your relationship?: Yes Additional Social history: lives alone Time Spent with Patient Time Spent with Patient: 45-69 minutes Time was spent: preparing to see the patient(eg.review tests), ordering medications,tests, procedures, referring, communicating with other health human services care specialist, indepentently interpreting results, counseling the patient and care coordination
--- NOTE | 2024-04-26 12:03 | CMDISCH_ITS ---
Date of service: 04/26/24 Time of Service: 12:03 LACE Index Scoring Tool Questions: Length of Stay (in days): 2 Was the patient admitted via the E.D.?: No E.D. Visits: 3 Answers: Total Score: 5 Risk of Readmission: Low Risk Care Management Discharge Plan Reason for Hospitalization: IV line associated sepsis Discharge Plan: Krishan will be discharged home with no new services. He will come to the [facility]fusion [facility] daily for TPN and IV antibiotics, coordinated by CM. He will follow up with surgery, his PCP and plan of care and transport with family. Patient/Family Education Needs: Review discharge instructions, limitations, fo llow up plan and discuss Ask Me Three Services Needed at Discharge: Infusion Therapy (daily for TPN and IV Vancomycin) SDOH Health Related Social Needs: No Data to Display
== END 2024-04-26 11:05 | disposition home or self-care (01) | DRG 315 ==
PROVIDERS: Admitting Provider Surgery; PCP Family Medicine; Visit Provider Surgery
DX: T80.211A Bloodstream infection due to central venous catheter, initial encounter (principal); E46 Unspecified protein-calorie malnutrition; Z16.11 Resistance to penicillins; K50.80 Crohn's disease of both small and large intestine without complications; L03.114 Cellulitis of left upper limb; I82.622 Acute embolism and thrombosis of deep veins of left upper extremity; R78.81 Bacteremia; I73.00 Raynaud's syndrome without gangrene; R63.4 Abnormal weight loss; E53.8 Deficiency of other specified B group vitamins; G89.29 Other chronic pain; F17.210 Nicotine dependence, cigarettes, uncomplicated; R53.83 Other fatigue; R97.20 Elevated prostate specific antigen [PSA]; M79.89 Other specified soft tissue disorders; F41.9 Anxiety disorder, unspecified; Z93.2 Ileostomy status; Z79.891 Long term (current) use of opiate analgesic; Z68.22 Body mass index [BMI] 22.0-22.9, adult; F43.10 Post-traumatic stress disorder, unspecified; R06.00 Dyspnea, unspecified; R10.9 Unspecified abdominal pain; E87.5 Hyperkalemia; R50.9 Fever, unspecified; M17.11 Unilateral primary osteoarthritis, right knee; D64.9 Anemia, unspecified; I45.10 Unspecified right bundle-branch block; F32.A Depression, unspecified
CPT/HCPCS: 36410; 00123; 36415; 74177; 80048; 80053; 80061; 83690; 85027; 87040; 93306; 99223; 99231; 99239; J1650; 71260; 80202; 83036; 83735; 84100; 85025; 85379; 85730; 86140; 93971; J1644; J1836; J3372; J3490

== ENCOUNTER 2024-04-27 07:10 | Inpatient (IN) | payer MEDICARE, SELFPAY ==
[2024-04-27] VITALS (18 sets, daily range): BP systolic 117–173; BP diastolic 60–97; PULSE 85–115; RESP 15–29; TEMP 37.3–37.6; O2SAT 96
--- NOTE | 2024-04-27 07:00 | RT.EKG_ITS ---
APPROVED REPORT Exam: Resting ECG Reason for Exam: chest pain Patient Location: E HR:114 bpm ECG Measurements Heart Rate 114 AXIS NE 139 P 75 QRSd 88 QRS -7 QT 310 T 61 QTc 427 Conclusion Sinus tachycardia [address] segment changes
--- NOTE | 2024-04-27 07:15 | DI.RAD_ITS ---
Exam(s) XR PORTABLE CHEST AP EXAM: XR PORTABLE CHEST AP CLINICAL HISTORY: fever. TECHNIQUE: 2D digital imaging was performed. COMPARISON: CR XR CHEST 2V PA LATERAL from 04/16/2024 FINDINGS: Single AP portable view. Heart size is upper normal. The mediastinum is not widened. Lungs are clear. No infiltrates nor obvious pleural effusions. IMPRESSION: No acute pulmonary findings on this single AP portable view of the chest. DATA REPOSITORY: RADIATION DOSE DELIVERED:
--- NOTE | 2024-04-27 07:22 | ED.GENADUL_ITS ---
Discharge Plan Disposition Patient Disposition: Admit to [facility] Condition: Fair Discharge Details Chief Complaint: Chest Pain Clinical Impression: Fever, Crohn's disease Admit Date/Time: 04/27/24 08:08 Admit Provider: Sy Nielsen Attending Provider: Sy Nielsen Primary Care Provider: Natty Mckinney V ED Provider: Wong Germain [facility] General Date/Time Provider Initiated Documentation: 04/27/24 07:14 . Limitations to Documentation: physical limitation . Information obtained by: patient and family (Daughter) . HPI Narrative: 58-year-old gentleman with past medical history of Crohn's disease, short gut syndrome, recent hospitalization for infected central catheter and bacteremia, recent left upper extremity DVT presents for evaluation of shortness of breath, chest pain and fever. Symptoms woke him up from sleep this morning. Have been severe and constant. Daughter reports temperature of 103 at home. She reports he has been coughing, nonproductive. No vomiting or diarrhea. He reports that he has chronic abdominal pain that has been unchanged. He was recently discharged from the hospital yesterday. Related Data Home Medications Medication Instructions Recorded Confirmed diphenoxylate-atropine 2.5 4 tab PO TID 12/08/20 04/27/24 mg-0.025 mg tablet (Lomotil) diclofenac sodium 1 % topical gel 2 - 4 g topical QID PRN Hand pain 02/07/21 04/27/24 (Voltaren) naloxone 4 mg/actuation nasal 1 spray intranasal Q3M 02/07/21 04/27/24 spray (Narcan) nicotine 14 mg/24 hr daily 1 patch transdermal DAILY 02/07/21 04/27/24 transdermal patch (Nicoderm CQ) hydrocodone 10 mg-acetaminophen 2 tab PO Q8H PRN 03/23/21 04/27/24 325 mg tablet ondansetron HCl 4 mg tablet 4 mg PO Q6H PRN 03/23/21 04/27/24 (Zofran) cyanocobalamin (vitamin B-12) 1,000 mcg subcut .[id number] 10/09/22 04/27/24 1,000 mcg/mL injection kit ferrous sulfate 325 mg (65 mg 325 mg PO DAILY 10/09/22 04/27/24 iron) tablet multivit,Ca,min-iron 8 mg-folic 1 tab PO DAILY 10/09/22 04/27/24 acid 200 mcg-lycopene 600 mcg tablet (Centrum Men) methadone 10 mg tablet (Dolophine) 10 mg PO TID 10/23/22 04/27/24 ibuprofen 600 mg tablet 600 mg PO TID #42 tabs 07/26/23 04/27/24 omeprazole 20 mg capsule,delayed 20 mg PO BID #28 caps 07/26/23 04/27/24 release daptomycin 500 mg intravenous 700 mg IV Q24H 04/18/24 04/27/24 solution rivaroxaban 15 mg tablet (Xarelto) 15 mg PO BID blood clots #30 tabs 04/26/24 04/27/24 Previous Rx's Medication Instructions Recorded ibuprofen 600 mg tablet 600 mg PO TID #42 tabs 07/26/23 omeprazole 20 mg capsule,delayed 20 mg PO BID #28 caps 07/26/23 release daptomycin 500 mg intravenous 700 mg IV Q24H 04/18/24 solution rivaroxaban 15 mg tablet (Xarelto) 15 mg PO BID blood clots #30 tabs 04/26/24 Allergies Allergy/AdvReac Type Severity Reaction Status Date / Time No Known Allergies Allergy Verified 04/27/24 07:18 General Stated Complaint: Chest Pain GENET: 2 Exam Narrative Exam Narrative: Review of Systems: All systems reviewed & are unremarkable except as noted in HPI and below + Ill-appearing + Diaphoretic NCAT PERRL, normal conjunctiva Tachycardic Mild tachypnea, no hypoxia, clear bilaterally Multiple surgical scars on the abdomen, generalized tenderness, but no focal tenderness, soft and not rigid Extremities w/o deformity, no cyanosis Indwelling catheter line in the right upper extremity Left upper extremity with mild edema no focal neurologic deficits Appropriate mood and affect Course Vital Signs Vital signs: Vital Signs Temperature 37.3 C 04/27/24 07:12 Pulse 114 H 04/27/24 07:12 Respiratory Rate 04/27/24 07:12 Blood Pressure 173/97 H 04/27/24 07:12 Pulse Oximetry 96 04/27/24 07:12 Temperature 37.3 C 04/27/24 07:12 Temperature Source Oral 04/27/24 07:12 Pulse 114 H 04/27/24 07:12 Respiratory Rate 04/27/24 07:12 Respiratory Effort Short of Breath, Incrsd Work of Breathing 04/27/24 07:16 Blood Pressure 173/97 H 04/27/24 07:12 Blood Pressure Position Sitting 04/27/24 07:12 Pulse Oximetry 96 04/27/24 07:12 Oxygen Delivery Method Room Air 04/27/24 07:12 Oxygen Flow Rate 0 04/27/24 07:12 Pain Level 3 04/27/24 07:12 Lab/Test Results Lab/Test Results: 04/27/24 07:15 Blood Blood Culture - Pending 04/27/24 07:15 Blood Blood Culture - Pending Medical Decision Making Emergent evaluation of acute febrile illness. Patient has recent complicated hospitalization and is on IV vancomycin for bacteremia. He was only discharged from the hospital yesterday so it is unclear if he has had any home doses of vancomycin. At presentation, he is very ill-appearing, febrile diaphoretic, tachycardic. I suspect continuation of his bacteremia. No clear focal source otherwise on examination. I have reviewed his medical record and complicated infectious course. Plan for sepsis workup including IV fluid resuscitation, broad-spectrum antibiotics, labs, cultures and chest x-ray. I anticipate the need for readmission. Lab work reviewed. White blood cell count is going back up. Procalcitonin and lactic acid are not significantly elevated. Cultures have been drawn. Chest x- ray does not show focal consolidation the patient reports his chest symptoms have improved with fever control. Given his risk factors for PE, CTA was obtained, this does not demonstrate a pulmonary embolism. I discussed with the surgeon, who is familiar with the patient. He agrees to readmit the patient to the hospital, the patient agrees to stay. Medical Records Medical records reviewed: Yes I reviewed the patient's medical records. Medical records narrative: admitted 04/24-04/26 CRBSI: Right IJ Groshong catheter removed 04/17 > treated with dapto & levaquin > elevated LFTs started continued Vanco 1gm/200ml daily for another 10-14 days Cellulitis related to recent left arm (Basilic vein) thrombosis > cath removed blood cx 04/24: no growth Echo: negative for valvular disease, EF 60% Quality:SDOH Health Related Social Needs: No Data to Display Critical Care Time Critical Care Time Critical Care Time: Yes Total Critical Care Time: 34 Attestation: CRITICAL CARE Upon my evaluation, this patient had a high probability of imminent or life- threatening deterioration due to sepsis which required my direct attention, intervention, and personal management. I have personally provided 34 minutes of critical care time exclusive of time spent on separately billable procedures. Time includes review of laboratory data, radiology results, discussion with consultants, and monitoring for potential decompensation. Interventions were performed as documented above [facility] All Active Problems (Updated 04/27/24 @ 09:55 by Wong Germain MD) Fever (Acute) Venous thrombosis in left shoulder area (Acute) Cellulitis of left upper arm (Acute) Left arm swelling (Acute) Chronic abdominal pain (Acute) Short gut syndrome (Chronic) Malnutrition (Acute) Internal derangement of right knee (Acute) Osteoarthritis of right knee (Acute) Vision changes (Acute) Joint pain (Acute) Ileostomy status (Chronic) Crohn's disease (Chronic) History of total right knee replacement (Acute 02/09/21) Arthrofibrosis of total knee arthroplasty (Acute) RIGHT S/P Manipulation: 04/20/2021 Pain in elbow joint (Acute) Ulnar abutment syndrome of both wrists (Acute) Degenerative arthritis of carpometacarpal joint of thumb (Acute) Medical History Anxiety Catheter-related bloodstream infection (CRBSI) Fever Chronic prescription opiate use Unintended weight loss Methadone use Elevated liver function tests Smoker Raynaud's disease Depression Dyspnea on exertion Vitamin B12 deficiency Sinus pain Postprandial vomiting Syncope Fatigue Abdominal pain Liver mass Disease of gallbladder, unspecified Infected cyst of skin tx with abx Preventative health care Encounter for therapeutic drug level monitoring Preoperative examination Atrial enlargement, left Situational depression Dyspnea Neck pain Radiculopathy affecting upper extremity Other postprocedural complications and disorders of genitourinary system post procedure testicular pain Hip pain Gallstones Tongue lesion Anemia Hematuria Pelvic pain Other complications following infusion, transfusion and therapeutic injection, subsequent encounter Right knee pain RBBB RUQ pain Complaint of pain of toe Bilateral thumb pain Elevated PSA Pain of knee joint on movement Paresthesia Breast lump History of pneumonia Pulmonary nodule Prostate cancer Surgical History History of creation of ostomy had in situ since 1988 Hx of total knee arthroplasty Cataract extraction status Social History Smoking/Tobacco Use Status: Current every day Tobacco Type: cigarettes Tobacco: How many years used: 44 Smoking risk assessment performed?: Yes Alcohol Intake: never Drug use: Socially Substance use type: former substance user and marijuana Household members: none Housing: apartment current occupation: Disabled Current gender identity: male Do you feel safe at home: Yes Do you feel safe in your relationship?: Yes Additional Social history: lives alone
[2024-04-27 07:33] LABS: BE (Venous) -5 mmol/L (-2-3); HCO3 (Venous) 20 mmol/L (23-28); O2 Sat (Venous) 97 %; TCO2 (Venous) 18 mmol/L (24-29); pCO2 (Venous) 31 mmHg (41-51); pH (Venous) 7.42 (7.31-7.41); pO2 (Venous) 82 mmHg
[2024-04-27 07:35] LABS: Abs Immature Grans 0.05 10^3/uL (0.0-0.06); Absolute Basophil Count 0.03 10^3/uL (0.0-0.2); Absolute Lymphocyte Count 0.75 10^3/uL (1.2-3.4); Absolute Monocyte Count 0.95 10^3/uL (0.1-0.8); Basophils % 0.2 %; Eosinophils % 0.1 %; HCT 35.1 % (40.0-50.0); HGB 11.8 g/dL (13.5-17.5); Immature Grans % 0.4 %; Lactate 1.2 mmol/L (0.6-1.4); Lymphocytes % 5.5 %; MCH 31.2 pg (27.0-33.0); MCHC 33.6 % (32.0-36.0); MCV 93 fL (80-95); MPV 10.8 fL (8.0-11.0); Neutrophils % 86.8 %; Platelet Count 297 10^3/uL (130-400); RBC 3.78 10^6/uL (4.36-5.78); RDW 13.3 % (11.8-14.1); RDW-SD 45.7 fL; WBC 13.59 10^3/uL (4.4-10.8)
[2024-04-27 07:46] LABS: Absolute Eosinophil Count 0.01 10^3/uL (0.0-0.7)
[2024-04-27 07:47] LABS: PTT Activated 26.6 sec (23.6-32.8)
[2024-04-27 07:52] LABS: ALT 96 U/L (16-63); AST 31 U/L (15-37); Alkaline Phosphatase 358 U/L (46-116); Anion Gap 13.4 mmol/L (3-11); BUN 13 mg/dL (7-18); CO2 20.6 mmol/L (21.0-32.0); CREATININE 1.1 mg/dL (0.70-1.30); Calcium 8.9 mg/dL (8.5-10.1); Chloride 102 mmol/L (98-107); Estimated GFR 77.33 (mL/min/1.73m2); Glucose 196 mg/dL (74-106); Potassium 4.1 mmol/L (3.5-5.1); Sodium 136 mmol/L (136-145); Total Protein 6.8 g/dL (6.4-8.2); Troponin I < 50 ng/L (< or =60)
[2024-04-27 07:56] LABS: Vancomycin, Random 1.4 ug/mL
--- NOTE | 2024-04-27 08:00 | DI.CT_ITS ---
Exam(s) CT CHEST PE CTA EXAM: CT CHEST PE CTA CLINICAL HISTORY: SOB. TECHNIQUE: Imaging Protocol: CT angiography of the chest was performed using pulmonary embolus richard col. Multi planar reconstructions were performed. CONTRAST MATERIAL: Intravenous: Omnipaque 350 Contrast volume: 100 cc COMPARISON: CT CT CHEST/ABD/PEL W from 04/24/2024 FINDINGS: CHEST: PULMONARY ARTERIES: There are no intraluminal filling defects to suggest acute pulmonary emboli. LUNGS: There are increased markings now evident in the posterior basal segment of the right lower lob e, not evident on 04/24/2024, 3 days ago. Mild increased markings in the posterior basal segment of the left lower lobe have also slightly increased from previous. There are no pleural effusions.. No ominous pulmonary nodules. No findings in the trachea and mainstem bronchi. MEDIASTINUM: There is no hilar nor mediastinal adenopathy. Visualized thyroid unremarkable. CARDIAC: Heart size is normal.There is a thin new pericardial effusion with thickness 4 mm anteriorly . This was not present 3 days ago. Aortic size is upper normal. There is no dissection. There is no significant shift of the interventricular septum. PARTIALLY VISUALIZED UPPERMOST ABDOMEN: No adrenal masses. No splenomegaly. OSSEOUS: No fractures. No significant osseous lesions.. IMPRESSION: 1. No evidence of acute pulmonary emboli. No evidence of pulmonary infarction.However, there are inc reasing markings in the posterior basal segments of both lower lobes, probably atelectatic and not as sociated with pleural effusions. 2. There is a new small pericardial effusion. This measures 4 mm thickness anteriorly. 3. No evidence of aortic dissection. First read by [facility]. Final report called by myself to hospitalist 04/27/2024 4:10 p.m. RADIATION DOSE DELIVERED: 355.38mGy.cm Total DLP DATA REPOSITORY: All CT scans at this facility are submitted to the National Radiology Data Registry (NRDR) Dose Index Registry (DIR) with the [employer] (A[employer]). RADIATION OPTIMIZATION: All CT scans at this facility use at least one of these dose optimization te chniques: automated exposure control; mA and/or kV adjustment per patient size (includes targeted exa ms where dose is matched to clinical indication); or iterative reconstruction.
[2024-04-27] MEDS: CEFEPIME 2 GM in Normal Saline 100 ML IVPB (08:06)
[2024-04-27] MEDS: Lactated Ringers 1,000 ML 1000 ML IV (08:06)
[2024-04-27 08:11] LABS: Procalcitonin 0.2 ng/mL
--- NOTE | 2024-04-27 08:15 | DI.VRAD_ITS ---
PROCEDURE INFORMATION: Exam: XR Chest Exam date and time: 04/27/2024 7:44 AM Age: 58 years old Clinical indication: Other: Fever TECHNIQUE: Imaging protocol: Radiologic exam of the chest. Views: 1 view. COMPARISON: CT CHEST/ABD/PEL W 04/24/2024 4:50 PM FINDINGS: Lungs: No focal consolidation seen. Pleural spaces: No large pleural effusion seen. Heart/Mediastinum: No cardiomegaly. Bones/joints: Grossly unremarkable. IMPRESSION: No acute findings to explain reported symptoms. Dictated and Authenticated by: Twila Gonzales MD. Ordering:HiKRISTEN Pickering MD
[2024-04-27] MEDS: Normal Saline - Diluent 50 ML VIAL IJ (08:42)
[2024-04-27] MEDS: Omnipaque 350 MG/ML 100 ML BTL IJ (08:43)
[2024-04-27] MEDS: ACETAMINOPHEN 1,000 MG/100 ML BTL 400 MG IVPB (09:13)
--- NOTE | 2024-04-27 09:18 | DI.VRAD_ITS ---
PROCEDURE INFORMATION: Exam: CTA Chest With Contrast Exam date and time: 04/27/2024 8:36 AM Age: 58 years old Clinical indication: Shortness of breath TECHNIQUE: Imaging protocol: Computed tomographic angiography of the chest with contrast. Exam focused on the arteries. 3D rendering (Not supervised by radiologist): MIP and/or 3D reconstructed images were created by the technologist. Contrast material: OMNIPAQUE 350; Contrast volume: 100 ml; Contrast route: INTRAVENOUS (IV); COMPARISON: CT CHEST PE CTA 07/26/2023 11:57 AM FINDINGS: Pulmonary arteries: No pulmonary embolus is appreciated. Aorta: No thoracic aortic aneurysm seen. Arterial calcifications. Lungs: Subsegmental atelectasis/scarring in the lungs. Dependent changes are present in the lungs. Subcentimeter left upper lobe nodule again identified. Pleural spaces: No pleural effusion. Heart: Trace pericardial fluid. Lymph nodes: Nonspecific mediastinal lymph nodes. Adrenal glands: Adrenal thickening. Bones/joints: No acute pertinent abnormality seen. Soft tissues: No acute pertinent abnormality seen. IMPRESSION: No acute findings to explain reported symptoms. Dictated and Authenticated by: Twila Gonzales MD. Ordering:CarenKRISTEN Pickering MD
[2024-04-27] MEDS: VANCOMYCIN/WATER (PEG) 1.5 GM/300 ML BAG IVPB (09:36)
[2024-04-27] MEDS: Normal Saline Flush 10 ML SYR IVP (09:49)
[2024-04-27 11:18] LABS: Bilirubin Negative (Negative); Blood Negative (Negative); Clarity Clear (Clear); Glucose Negative (Negative); Ketones Negative (Negative); Leukocyte Esterase Negative (Negative); Nitrite Negative (Negative); Specific Gravity <= 1.005 (1.005-1.025); Urobilinogen 0.2 mg/dL (Up to 0.2); pH 5.5 (5-8)
[2024-04-27 11:42] LABS: Lactate 0.6 mmol/L (0.6-1.4)
--- NOTE | 2024-04-27 12:50 | NUR.NOTE ---
Nursing Note: Pt left AMA with family member
--- NOTE | 2024-04-27 12:51 | PGE_ITS ---
Date of Service Date of service: 04/27/24 Time of Service: 11:30 Subjective Subjective Interval history since last seen: Patient discharged to home yesterday. Arrangements made for IV Vancomycin and TPN to be given at [facility]fusion [facility]. Patient returned this morning via ED reporting fever spike of 104.8. Took Ibuprofen before arriving at ED. WBC had dropped 18 --> 13 --> 10 yesterday when discharged. Was back up to 13 in ED this morning. Fresh cultures taken in ED. Patient given dose of Vanco here and re- admitted to hospital. This surgeon saw patient once he arrived to the regular nursing floor. Patient daughter was at bedside. Lots of questions asked and answered. Patient announced that he would sign-out AMA after completion of the Vanco infusion; and he did so signing out Against Medical Advice (AMA). Sy Nielsen D.O. Objective Last Vital Signs Temp 99.7 F H 04/27/24 11:41 Pulse 85 04/27/24 11:41 Resp 15 04/27/24 11:41 BP 117/79 04/27/24 11:41 Pulse Ox 96 04/27/24 11:41 Laboratory Results - last 24 hr 04/27/24 04/27/24 04/27/24 07:22 10:45 11:33 WBC 13.59 H RBC 3.78 L Hgb 11.8 L Hct 35.1 L MCV 93 MCH 31.2 MCHC 33.6 RDW 13.3 Plt Count 297 MPV 10.8 Immature Gran % 0.4 Neutrophils % 86.8 Lymphocytes % 5.5 Monocytes % 7.0 Eosinophils % 0.1 Basophils % 0.2 Nucleated RBC % 0.0 Absolute Neutrophils 11.80 H Absolute Lymphocytes 0.75 L Absolute Monocytes 0.95 H Absolute Eosinophils 0.01 Absolute Basophils 0.03 PT 10.0 INR 1.0 APTT 26.6 VBG pH 7.42 H VBG pCO2 31 L VBG pO2 82 VBG HCO3 20 L VBG Total CO2 18 L VBG O2 Saturation 97 VBG Base Excess -5 L VBG Lactate 1.2 0.6 Sodium 136 Potassium 4.1 Chloride 102 Carbon Dioxide 20.6 L Anion Gap 13.4 H BUN 13 Creatinine 1.1 Est GFR (CKD-EPI 2020) 77.33 Glucose 196 H Calcium 8.9 Total Bilirubin 1.0 AST 31 ALT 96 H Alkaline Phosphatase 358 H Troponin I < 50 Total Protein 6.8 Albumin 3.0 L Procalcitonin 0.2 Urine Color Yellow Urine Clarity Clear Urine pH 5.5 Ur Specific [place] <= 1.005 Urine Protein Negative Urine Ketones Negative Urine Blood Negative Urine Nitrite Negative Urine Bilirubin Negative Urine Urobilinogen 0.2 Ur Leukocyte Esterase Negative Urine Glucose Negative Random Vancomycin 1.4 Time Spent with Patient Time Spent with Patient: 25-34 minutes Time was spent: preparing to see the patient(eg.review tests), obtaining and/or reviewing separately otained hiistory, referring, communicating with other health geriatric care manager, indepentently interpreting results and counseling the patient
--- NOTE | 2024-04-27 13:09 | PDOC.CMPRO ---
Date of service: 04/27/24 Time of Service: 13:09 Care Management Progress Note Progress Note Text Progress Note Text: Krishan was admitted to [facility] on 04/24/24 with sepsis secondary to an infected IV catheter with bacteremia. He was started in IV antibiotics and continued on the TPN that he chronically receives.He was discharged shortly before noon yesterday, 04/26/24. Krishan returned to the ED this morning about 7 am with fever reported to be >104 F and chest pain. He was readmitted to [facility], received his dose of IV Vancomycin and left AMA shortly thereafter. SDOH(Care Management) Screening Will the Patient Participate in the Screening?: Yes Do you worry about having a steady place to live?: no In the past 12 months, have you had to go without electric, gas, oil or water in your home?: no Have you or anyone in your house had to go without enough food to eat?: no Has lack of transportation kept you from medical appointments or from doing things needed for daily living?: no Has anyone in your support network made you feel unsafe for any reason?: no
== END 2024-04-27 11:54 | disposition left against medical advice (07) | DRG 864 ==
LOC: ER 08:22 → MS 08:49
PROVIDERS: Admitting Provider Surgery; Emergency Provider Emergency Medicine; PCP Family Medicine; Visit Provider Surgery
DX: R50.9 Fever, unspecified (principal); K91.2 Postsurgical malabsorption, not elsewhere classified; K50.90 Crohn's disease, unspecified, without complications; R78.81 Bacteremia; L03.114 Cellulitis of left upper limb; I82.602 Acute embolism and thrombosis of unspecified veins of left upper extremity; E46 Unspecified protein-calorie malnutrition; R07.89 Other chest pain; R06.02 Shortness of breath; Z79.899 Other long term (current) drug therapy; T80.211D Bloodstream infection due to central venous catheter, subsequent encounter; G89.29 Other chronic pain; R10.9 Unspecified abdominal pain; Z96.651 Presence of right artificial knee joint; Z93.2 Ileostomy status; F41.9 Anxiety disorder, unspecified; Z79.891 Long term (current) use of opiate analgesic; F17.210 Nicotine dependence, cigarettes, uncomplicated; I73.00 Raynaud's syndrome without gangrene; E53.8 Deficiency of other specified B group vitamins; D64.9 Anemia, unspecified; I45.10 Unspecified right bundle-branch block; C61 Malignant neoplasm of prostate
CPT/HCPCS: 36415; 71275; 80053; 82805; 84145; 87040; 93005; 96365; 99291; 71045; 80202; 81003; 83605; 84484; 85025; 85610; 85730; 87086; 93010; J0131; J0692; J3372; J3490

== ENCOUNTER 2024-05-11 01:45 | Outpatient (RCR) | payer MEDICARE, SELFPAY ==
[2024-04-19] MEDS: POTASSIUM CHLORIDE/D5-0.45NACL 1,000 ML 1000 MEQ IV (10:53)
[2024-04-19] MEDS: Normal Saline Flush 10 ML SYR IVP ×2 (10:53→11:57)
[2024-04-20] MEDS: POTASSIUM CHLORIDE/D5-0.45NACL 1,000 ML 1000 MEQ IV (10:31)
[2024-04-20] MEDS: Normal Saline Flush 10 ML SYR IVP (10:32)
[2024-04-20 11:58] LABS: Abs Immature Grans 0.04 10^3/uL (0.0-0.06); Absolute Eosinophil Count 0.16 10^3/uL (0.0-0.7); Absolute Lymphocyte Count 2.27 10^3/uL (1.2-3.4); Absolute Neutrophil Count 9.78 10^3/uL (1.2-6.7); Basophils % 0.5 %; Eosinophils % 1.2 %; HCT 38.8 % (40.0-50.0); Immature Grans % 0.3 %; Lymphocytes % 17.5 %; MCH 31.3 pg (27.0-33.0); MCHC 33.5 % (32.0-36.0); MCV 94 fL (80-95); MPV 11.2 fL (8.0-11.0); Monocytes % 5.2 %; Neutrophils % 75.3 %; Platelet Count 305 10^3/uL (130-400); RBC 4.15 10^6/uL (4.36-5.78); RDW 13.2 % (11.8-14.1); WBC 12.99 10^3/uL (4.4-10.8)
[2024-04-20 12:03] LABS: Absolute Basophil Count 0.06 10^3/uL (0.0-0.2); Absolute Monocyte Count 0.68 10^3/uL (0.1-0.8)
[2024-04-20 12:11] LABS: ALT 152 U/L (16-63); AST 86 U/L (15-37); Albumin 3.3 g/dL (3.4-5.0); Alkaline Phosphatase 181 U/L (46-116); Anion Gap 7.7 mmol/L (3-11); BUN 12 mg/dL (7-18); Bilirubin, Total 0.9 mg/dL (0.2-1.0); CO2 28.3 mmol/L (21.0-32.0); CREATININE 1.1 mg/dL (0.70-1.30); Calcium 8.9 mg/dL (8.5-10.1); Chloride 101 mmol/L (98-107); Estimated GFR 77.33 (mL/min/1.73m2); Glucose 131 mg/dL (74-106); Magnesium 1.8 mg/dL (1.8-2.4); PHOSPHORUS 2.6 mg/dL (2.6-4.7); Sodium 137 mmol/L (136-145); Total Protein 6.7 g/dL (6.4-8.2)
[2024-04-20 12:29] LABS: Triglyceride 74 mg/dL (<150)
[2024-04-21 10:49] LABS: Abs Immature Grans 0.06 10^3/uL (0.0-0.06); Absolute Basophil Count 0.07 10^3/uL (0.0-0.2); Absolute Eosinophil Count 0.17 10^3/uL (0.0-0.7); Absolute Lymphocyte Count 2.33 10^3/uL (1.2-3.4); Absolute Monocyte Count 0.88 10^3/uL (0.1-0.8); Absolute Neutrophil Count 9.57 10^3/uL (1.2-6.7); Basophils % 0.5 %; Eosinophils % 1.3 %; HCT 39.1 % (40.0-50.0); HGB 13.3 g/dL (13.5-17.5); Immature Grans % 0.5 %; Lymphocytes % 17.8 %; MCH 31.5 pg (27.0-33.0); MCV 93 fL (80-95); MPV 10.9 fL (8.0-11.0); Monocytes % 6.7 %; Neutrophils % 73.2 %; Platelet Count 319 10^3/uL (130-400); RBC 4.22 10^6/uL (4.36-5.78); RDW 13.2 % (11.8-14.1); WBC 13.08 10^3/uL (4.4-10.8)
[2024-04-21] MEDS: Normal Saline Flush 10 ML SYR IVP (11:00)
[2024-04-21 11:07] LABS: ALT 168 U/L (16-63); AST 78 U/L (15-37); Albumin 3.6 g/dL (3.4-5.0); Alkaline Phosphatase 206 U/L (46-116); Anion Gap 8.6 mmol/L (3-11); BUN 13 mg/dL (7-18); Bilirubin, Total 0.9 mg/dL (0.2-1.0); C-Reactive Protein 0.97 mg/dL (<or=0.5); CO2 26.4 mmol/L (21.0-32.0); CREATININE 1.3 mg/dL (0.70-1.30); Calcium 9.3 mg/dL (8.5-10.1); Chloride 102 mmol/L (98-107); Estimated GFR 63.28 (mL/min/1.73m2); Glucose 165 mg/dL (74-106); Magnesium 1.9 mg/dL (1.8-2.4); PHOSPHORUS 2.9 mg/dL (2.6-4.7); Potassium 4.4 mmol/L (3.5-5.1); Sodium 137 mmol/L (136-145); Total Protein 7.2 g/dL (6.4-8.2)
[2024-04-21 11:17] LABS: Triglyceride 92 mg/dL (<150)
[2024-04-22] MEDS: Normal Saline Flush 10 ML SYR IVP (10:27)
[2024-04-22] MEDS: levoFLOXacin 750 MG/150 ML BAG 100 MG IVPB (10:27)
[2024-04-22 10:32] LABS: Prealbumin 29 mg/dL (20-40)
[2024-04-23] MEDS: Normal Saline Flush 10 ML SYR IVP (10:30)
[2024-04-23] MEDS: levoFLOXacin 750 MG/150 ML BAG 100 MG IVPB (10:30)
[2024-04-23 10:50] LABS: HCT 39.4 % (40.0-50.0); HGB 13.6 g/dL (13.5-17.5); MCH 31.5 pg (27.0-33.0); MCHC 34.5 % (32.0-36.0); MCV 91 fL (80-95); Platelet Count 316 10^3/uL (130-400); RBC 4.32 10^6/uL (4.36-5.78); RDW 13.2 % (11.8-14.1); RDW-SD 43.9 fL
[2024-04-23 11:07] LABS: ALT 224 U/L (16-63); AST 84 U/L (15-37); Albumin 3.6 g/dL (3.4-5.0); Alkaline Phosphatase 230 U/L (46-116); Anion Gap 11.9 mmol/L (3-11); BUN 12 mg/dL (7-18); Bilirubin, Total 1.1 mg/dL (0.2-1.0); C-Reactive Protein 1.75 mg/dL (<or=0.5); CO2 23.1 mmol/L (21.0-32.0); CREATININE 1.3 mg/dL (0.70-1.30); Calcium 9.3 mg/dL (8.5-10.1); Chloride 101 mmol/L (98-107); Estimated GFR 63.28 (mL/min/1.73m2); Glucose 139 mg/dL (74-106); Magnesium 1.7 mg/dL (1.8-2.4); PHOSPHORUS 2.6 mg/dL (2.6-4.7); Potassium 4.7 mmol/L (3.5-5.1); Sodium 136 mmol/L (136-145); Total Protein 7.5 g/dL (6.4-8.2)
[2024-04-24] MEDS: LORazepam 1 MG TAB PO (09:55)
[2024-04-28] MEDS: POTASSIUM CHLORIDE/D5-0.45NACL 1,000 ML 333.33 MEQ IV (10:44)
[2024-04-28] MEDS: Normal Saline Flush 10 ML SYR IVP (10:46)
[2024-04-28] MEDS: VANCOMYCIN/WATER (PEG) 2 GM/400 ML BAG IVPB (10:46)
[2024-04-29] MEDS: POTASSIUM CHLORIDE/D5-0.45NACL 1,000 ML 333 MEQ IV (10:39)
[2024-04-29] MEDS: VANCOMYCIN/WATER (PEG) 2 GM/400 ML BAG IVPB (10:43)
[2024-04-29] MEDS: Normal Saline Flush 10 ML SYR IVP (10:46)
[2024-04-30] MEDS: POTASSIUM CHLORIDE/D5-0.45NACL 1,000 ML 333 MEQ IV (10:41)
[2024-04-30] MEDS: VANCOMYCIN/WATER (PEG) 2 GM/400 ML BAG IVPB (10:45)
[2024-04-30] MEDS: Normal Saline Flush 10 ML SYR IVP (10:46)
[2024-05-01] MEDS: POTASSIUM CHLORIDE/D5-0.45NACL 1,000 ML 333 MEQ IV (10:17)
[2024-05-01] MEDS: VANCOMYCIN/WATER (PEG) 2 GM/400 ML BAG IVPB (10:17)
[2024-05-01] MEDS: Normal Saline Flush 10 ML SYR IVP (10:18)
[2024-05-01 14:01] LABS: Vancomycin, Trough 9.6 ug/mL (10.0-20.0)
[2024-05-02] MEDS: VANCOMYCIN/WATER (PEG) 2 GM/400 ML BAG IVPB (10:25)
[2024-05-02] MEDS: POTASSIUM CHLORIDE/D5-0.45NACL 1,000 ML 333 MEQ IV (10:35)
[2024-05-02] MEDS: Normal Saline Flush 10 ML SYR IVP (13:31)
[2024-05-03] MEDS: POTASSIUM CHLORIDE/D5-0.45NACL 1,000 ML 333 MEQ IV (10:45)
[2024-05-03] MEDS: Normal Saline Flush 10 ML SYR IVP (10:46)
[2024-05-03] MEDS: VANCOMYCIN/WATER (PEG) 2 GM/400 ML BAG IVPB (10:46)
[2024-05-04] MEDS: POTASSIUM CHLORIDE/D5-0.45NACL 1,000 ML 333 MEQ IV (09:40)
[2024-05-04] MEDS: VANCOMYCIN/WATER (PEG) 2 GM/400 ML BAG IVPB (09:57)
[2024-05-04] MEDS: Normal Saline Flush 10 ML SYR IVP (10:06)
[2024-05-05] MEDS: POTASSIUM CHLORIDE/D5-0.45NACL 1,000 ML 333 MEQ IV (10:35)
[2024-05-05] MEDS: VANCOMYCIN/WATER (PEG) 2 GM/400 ML BAG IVPB (10:45)
[2024-05-05] MEDS: Normal Saline Flush 10 ML SYR IVP (10:47)
[2024-05-06] MEDS: POTASSIUM CHLORIDE/D5-0.45NACL 1,000 ML 333 MEQ IV (10:30)
[2024-05-06] MEDS: VANCOMYCIN/WATER (PEG) 2 GM/400 ML BAG IVPB (10:43)
[2024-05-06] MEDS: Normal Saline Flush 10 ML SYR IVP (10:44)
[2024-05-07] MEDS: POTASSIUM CHLORIDE/D5-0.45NACL 1,000 ML 500 MEQ IV (10:45)
[2024-05-07 11:03] LABS: Abs Immature Grans 0.05 10^3/uL (0.0-0.06); Absolute Basophil Count 0.07 10^3/uL (0.0-0.2); Absolute Lymphocyte Count 2.38 10^3/uL (1.2-3.4); Absolute Monocyte Count 0.61 10^3/uL (0.1-0.8); Basophils % 0.6 %; HCT 37.1 % (40.0-50.0); HGB 12.3 g/dL (13.5-17.5); Immature Grans % 0.4 %; Lymphocytes % 20.6 %; MCH 31.2 pg (27.0-33.0); MCHC 33.2 % (32.0-36.0); MCV 94 fL (80-95); MPV 10.2 fL (8.0-11.0); Monocytes % 5.3 %; Neutrophils % 72.1 %; Platelet Count 520 10^3/uL (130-400); RBC 3.94 10^6/uL (4.36-5.78); RDW 13.8 % (11.8-14.1); RDW-SD 47.4 fL; WBC 11.56 10^3/uL (4.4-10.8)
[2024-05-07 11:04] LABS: Absolute Eosinophil Count 0.12 10^3/uL (0.0-0.7); Absolute Neutrophil Count 8.33 10^3/uL (1.2-6.7)
[2024-05-07 11:18] LABS: C-Reactive Protein < 0.50 mg/dL (<or=0.5); CREATININE 1.1 mg/dL (0.70-1.30); Estimated GFR 77.33 (mL/min/1.73m2); Potassium 4.4 mmol/L (3.5-5.1); Vancomycin, Trough 12.4 ug/mL (10.0-20.0)
[2024-05-07] MEDS: VANCOMYCIN/WATER (PEG) 2 GM/400 ML BAG IVPB (11:34)
[2024-05-07] MEDS: Normal Saline Flush 10 ML SYR IVP (13:47)
[2024-05-08] MEDS: POTASSIUM CHLORIDE/D5-0.45NACL 1,000 ML 500 MEQ IV (10:30)
[2024-05-08] MEDS: VANCOMYCIN/WATER (PEG) 2 GM/400 ML BAG IVPB (10:35)
[2024-05-08] MEDS: Normal Saline Flush 10 ML SYR IVP (10:41)
[2024-05-09] MEDS: POTASSIUM CHLORIDE/D5-0.45NACL 1,000 ML 500 MEQ IV (10:30)
[2024-05-09] MEDS: VANCOMYCIN/WATER (PEG) 2 GM/400 ML BAG IVPB (10:35)
[2024-05-09] MEDS: Normal Saline Flush 10 ML SYR IVP (10:41)
[2024-05-09 11:26] LABS: ESR 26 mm/hr (0-20)
[2024-05-10] MEDS: VANCOMYCIN/WATER (PEG) 2 GM/400 ML BAG IVPB (10:28)
[2024-05-10] MEDS: POTASSIUM CHLORIDE/D5-0.45NACL 1,000 ML 500 MEQ IV (10:30)
[2024-05-11] MEDS: POTASSIUM CHLORIDE/D5-0.45NACL 1,000 ML 500 MEQ IV (10:33)
[2024-05-11] MEDS: VANCOMYCIN/WATER (PEG) 2 GM/400 ML BAG IVPB (10:38)
[2024-05-11] MEDS: Normal Saline Flush 10 ML SYR IVP (10:48)
== END 2024-05-18 23:59 | disposition home or self-care (01) ==
LOC: INF 01:45
PROVIDERS: Surgery; PCP Family Medicine; Visit Provider Family Medicine
DX: E46 Unspecified protein-calorie malnutrition (principal); R78.81 Bacteremia; R50.9 Fever, unspecified; T82.7XXA Infection and inflammatory reaction due to other cardiac and vascular devices, implants and grafts, initial encounter
CPT/HCPCS: 36415; 36591; 80053; 85027; 85652; 96365; 96366; 80202; 82565; 83735; 84100; 84132; 84134; 84478; 85025; 86140; 87070; J0878; J1956; J3372

== ENCOUNTER → 2024-05-13 07:51 | Outpatient (BNVA) | payer MEDICARE, SELFPAY | PROVIDERS: PCP Family Medicine; Referring Provider Family Medicine; Visit Provider Surgery | DX: E46 Unspecified protein-calorie malnutrition (principal) | CPT/HCPCS: 99213 ==

== ENCOUNTER 2024-05-28 06:04 | Day surgery (SDC) | payer MEDICARE, SELFPAY ==
--- NOTE | 2024-05-27 20:13 | PDOC.DSDIS_ITS ---
Date of service: 05/28/24 Time of Service: 08:20 Discharge Plan Disposition Patient Disposition: Home Condition: Good Discharge Details Reason For Visit: Insertion of tunneled venous access device Attending Provider: Michael Oliver Primary Care Provider: Natty Mckinney V Home Meds and New Rx's Prescriptions: Continued hydrocodone-acetaminophen 10-325 mg Tablet 2 tab PO Q8H PRN diphenoxylate-atropine [Lomotil] 2.5-0.025 mg tablet 4 tab PO TID cyanocobalamin (vitamin B-12) 1,000 mcg/mL kit 1,000 mcg subcut .[id number] methadone [Dolophine] 10 mg tablet 10 mg PO TID Patient Comments: Pt. states he takes this medication 0900pm 0200am 0400am daptomycin 500 mg recon soln 700 mg IV Q24H Hold Instructions: Changed by Provider Rx Instructions: administer over 30 mins Xarelto 15 mg Tablet 15 mg PO BID Qty: 30 0RF diclofenac sodium [Voltaren] 1 % Gel 2 - 4 g TOPICAL QID PRN (Reason: Hand pain) naloxone [Narcan] 4 mg/actuation [place],Non-Aerosol 1 spray INTRANASAL Q3M ibuprofen 600 mg tablet 600 mg PO TID Qty: 42 0RF Discharge Instructions Additional Instructions: Micky, it was nice seeing you today, and I hope you are comfortable during the procedure. The subclavian vein was not adequate to access today, so technically, I did end up inserting this catheter into the internal jugular vein, which is what we talked about in the office. Everything went very smoothly, and the catheter appears to be in a great location and works just fine. You have a little bit of skin glue over the site higher up on your neck where the needle went into the vein, and the catheter itself exits the skin on her chest wall just like the last time. There is a simple Band-Aid over top just to help absorb any bleeding that may occur over the next day. The Band-Aid can be changed if needed, or you are welcome to dress the catheter more formally if you prefer to prevent it from catching on clothing. Under the Band- Aid there is a white fixation device to help hold the catheter in place for the next week as the scar tissue matures. Will have to cut the stitches and remove that in the office. Otherwise, the catheter is fine to use as soon as you are ready for it. I have gone ahead and set up an office visit on the at 1 PM and will just take a few minutes to remove the stitches. If you need anything in the meantime, please do not hesitate to let us know. Activity:: Activity as Tolerated Remove Dressings/Wound Care:: 24 hours Shower/Bathe:: 24 hours Diet:: As Tolerated Discharge Orders Discharge Orders: Discharge Order (Routine); Ordered 05/27/24 Ordered By: Michael Oliver DS: Diagnosis Discharge Diagnosis (1) Short gut syndrome: Status: Chronic Asessment and Plan: Status post insertion of 8 Slovak Groshong catheter in the right internal jugular position. Follow-up in 1 week for suture removal
--- NOTE | 2024-05-27 20:14 | ROE_ITS ---
Date of service: 05/28/24 Time of Service: 08:26 Operative Note Operative Note DATE OF PROCEDURE: 05/28/24 PRE-OP DIAGNOSIS: Short gut syndrome with malnutrition POST-OP DIAGNOSIS: same PROCEDURE: Insertion of right internal jugular 8 Niuean Groshong catheter SURGEON: Michael Oliver ANESTHESIA TYPE: Local By Surgeon and General:No Airway Refer to Anesthesia Record ESTIMATED BLOOD LOSS: 5 PATHOLOGY: none sent COMPLICATIONS: None Patient was transported to: PACU Patient's condition: stable Implants: 8 Niuean single-lumen Groshong catheter Indications: Micky 59 years old, he has malnutrition from short gut syndrome. Procedure Description: I reviewed the preoperative plan with Micky in the prep and hold area, and we confirmed that the right side would be the ideal location. We went back to the operating room, he was assisted onto the OR table and padded and supported appropriately. Anesthesia was induced, and I prepped and draped the right neck and chest wall in the usual fashion. I began with an ultrasound of the right axilla subclavian junction. The vessel was easy to visualize, but it was a little bit small, and slightly angulated, perhaps from previous scar tissue. I anesthetized the skin, and was able to cannulated, but it was a little difficult to turn the guidewire downward. The wire and needle were removed, and I turned my attention to the right internal jugular. It was normal in anatomy and configuration. I anesthetized the skin here and cannulated the internal jugular vein under direct ultrasound guidance. Guidewire was advanced down into the atrial caval junction without any difficulty. Appropriate position was confirmed with the fluoroscopy. Skin incision was slightly enlarged, and the peel-away introducer sheath was advanced down over the guidewire. Groshong catheter was flushed with saline. I then advanced the catheter through the introducer and again used fluoroscopy to confirm the appropriate position. The peel-away introducer sheath was removed in usual fashion, an appropriate exit si te was identified on the chest wall, and the trajectory of the tunnel was anesthetized with local anesthetic. Tunneler was attached, the catheter was delivered down onto the right anterior chest wall and out through the skin site. Great care was taken to ensure that it remained appropriately positioned, not kinked. Catheter was flushed, and the port withdrew blood without any difficulty. The catheter was cut to an appropriate length, and the external fixation devices were attached according to the mushroom cutter's instructions. Catheter was secured to the skin and flushed with 5 cc of heparin. Skin access site on the neck was closed with skin glue, and a Band-Aid was used over the exit site. Patient was transferred to the recovery unit in excellent condition.
--- NOTE | 2024-05-28 06:10 | W.ANESPRE ---
General Info Date of Service Date Performed: 05/28/24 Height: 6 ft 1 in Weight: 76.374 kg Body Mass Index (BMI): 22.1 Surgical Procedure: Operation Date: 05/28/24 07:40 Proposed Procedure Side Surgeon p Groshong Placement Right Michael Oliver MD Meds Allergies and Home Medications Allergies Allergy/AdvReac Type Severity Reaction Status Date / Time No Known Allergies Allergy Verified 05/28/24 06:39 Home Medication Medication Instructions Recorded diphenoxylate-atropine 2.5 4 tab PO TID 12/08/20 mg-0.025 mg tablet (Lomotil) diclofenac sodium 1 % topical gel 2 - 4 g topical QID PRN Hand pain 02/07/21 (Voltaren) naloxone 4 mg/actuation nasal 1 spray intranasal Q3M 02/07/21 spray (Narcan) hydrocodone 10 mg-acetaminophen 2 tab PO Q8H PRN 03/23/21 325 mg tablet cyanocobalamin (vitamin B-12) 1,000 mcg subcut .[id number] 10/09/22 1,000 mcg/mL injection kit methadone 10 mg tablet (Dolophine) 10 mg PO TID 10/23/22 ibuprofen 600 mg tablet 600 mg PO TID #42 tabs 07/26/23 daptomycin 500 mg intravenous 700 mg IV Q24H 04/18/24 solution rivaroxaban 15 mg tablet (Xarelto) 15 mg PO BID blood clots #30 tabs 04/26/24 Current Visit Medications: Current Medications Generic Name Dose Route Start Last Admin Trade Name Freq PRN Reason Stop Dose Admin Ringer's Solution 1,000 mls @ 80 mls/hr 05/28/24 06:00 IV 05/28/24 23:59 INFUSION CLAUDIA IV Miscellaneous Supplies 1 each 05/28/24 06:00 Iv Access IV 05/28/24 23:59 DIRECTED CLAUDIA Sodium Chloride 0 ml 05/28/24 06:00 Normal Saline Flush 10 Ml Syr IV 05/28/24 23:59 PRN PRN Sodium Chloride 0 ml 05/28/24 06:00 Normal Saline 10 Ml Vial IJ 05/28/24 23:59 DIRECTED PRN Sterile Water 0 ml 05/28/24 06:00 Water,Injection,Sterile 10 Ml Vial IJ 05/28/24 23:59 DIRECTED PRN PFSH Active Problems Active Problems: Problem Status Onset Code History of prostate cancer Z85.46 Fever R50.9 Venous thrombosis in left shoulder area I82.602 Cellulitis of left upper arm L03.114 Left arm swelling M79.89 Chronic abdominal pain R10.9, G89.29 Short gut syndrome K91.2 Malnutrition E46 Internal derangement of right knee M23.91 Osteoarthritis of right knee M17.11 Vision changes H53.9 Joint pain M25.50 Ileostomy status Z93.2 Crohn's disease K50.90 History of total right knee replacement 02/09/21 Z96.651 Arthrofibrosis of total knee arthroplasty T84.82XA Pain in elbow joint M25.529 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, M25.832 Degenerative arthritis of carpometacarpal joint of thumb M18.9 Medical History Medical History Anxiety Catheter-related bloodstream infection (CRBSI) Fever Chronic prescription opiate use Unintended weight loss Methadone use Elevated liver function tests Smoker Raynaud's disease Depression Dyspnea on exertion Vitamin B12 deficiency Sinus pain Postprandial vomiting Syncope Fatigue Abdominal pain Liver mass Disease of gallbladder, unspecified Infected cyst of skin tx with abx Preventative health care Encounter for therapeutic drug level monitoring Preoperative examination Atrial enlargement, left Situational depression Dyspnea Neck pain Radiculopathy affecting upper extremity Other postprocedural complications and disorders of genitourinary system post procedure testicular pain Hip pain Gallstones Tongue lesion Anemia Hematuria Pelvic pain Other complications following infusion, transfusion and therapeutic injection, subsequent encounter Right knee pain RBBB RUQ pain Complaint of pain of toe Bilateral thumb pain Elevated PSA Pain of knee joint on movement Paresthesia Breast lump History of pneumonia Pulmonary nodule Surgical History Surgical History History of creation of ostomy had in situ since 1988 Hx of total knee arthroplasty Cataract extraction status Tobacco Smoking/Tobacco Use Status: Current every day Tobacco Type: cigarettes Alcohol Alcohol Intake: never Substance Use Substance use: Socially Substance use type: former substance user and marijuana Vital Signs and Lab Results Vital Signs Comment Vital Signs Comment:: Temp Pulse Resp BP Pulse Ox 36.1 C L 93 H 18 116/80 98 05/28/24 06:15 05/28/24 06:15 05/28/24 06:15 05/28/24 06:15 05/28/24 06:15 Lab Results Blood Type / Crossmatch: No Data to Display Complete Blood Count: White Blood Count 11.56 10^3/uL (4.4-10.8) H 05/07/24 10:30 Red Blood Count 3.94 10^6/uL (4.36-5.78) L 05/07/24 10:30 Hemoglobin 12.3 g/dL (13.5-17.5) L 05/07/24 10:30 Hematocrit 37.1 % (40.0-50.0) L 05/07/24 10:30 Platelet Count 520 10^3/uL (130-400) H 05/07/24 10:30 Complete Metabolic Panel: Potassium 4.4 mmol/L (3.5-5.1) 05/07/24 10:30 Creatinine 1.1 mg/dL (0.70-1.30) 05/07/24 10:30 Est GFR (CKD-EPI 2020) 77.33 (mL/min/1.73m2) 05/07/24 10:30 C-Reactive Protein < 0.50 mg/dL (<or=0.5) 05/07/24 10:30 Liver Function Panel: No Data to Display Coagulation Panel: No Data to Display Cardiac Panel: No Data to Display Arterial Blood Gas: No Data to Display Venous Blood Gas: No Data to Display Pancreas Panel: No Data to Display Thyroid Panel: No Data to Display Infectious Disease: No Data to Display Blood Cultures: No Data to Display Toxicology Panel: No Data to Display Imaging and Studies Imaging and Studies Study information below may be from another EMR and interpreted by another provider. Please see original notes in EMR for more complete details. EKG Summary: 04/27/24 Conclusion Sinus tachycardia [address] segment changes Stress Test Summary: Patient's ejection fraction was 45% with exercise. There were no wall motion abnormalities. No evidence of ischemia on the imaging portion of this exam This represents a normal SPECT stress test. Echocardiogram Summary: 04/25/24 Conclusion Normal left ventricular wall thickness and chamber size. Ejection fraction is 60 to 65%. Wall motion is normal Normal right ventricular size and function Both atria are normal in size There is no structural or hemodynamically significant valvular disease. Specifically, no valvular vegetations are identified Pulmonary Function Summary: 05/14/19 IMPRESSION Mild obstructive airways disease with no significant bronchodilator response. Clinical correlation recommended. Anesthesia Assessment and Plan Anesthesia History Personal History: No History of Anesthesia Complications Family History: No Family History of Anesthesia Complications Exercise Tolerance Exercise Tolerance: Metabolic Equivalents>4 Pertinent Negatives Pertinent Negatives: No Major Cardiovascular Symptoms or Complaints and No Major Pulmonary Symptoms or Complaints Cardiac & Pulmonary Exam Cardiac Exam: Normal S1/S2 Heart Sounds Pulmonary Exam: Clear Bilateral Breath Sounds Implantable Cardiac Device Does patient have a Pacemaker or an ICD?: No Airway Exam Known Difficult Airway: No Mallampati Class: 2 Mouth Opening: Normal (> 3cm) Thyromental Distance: Less than 3 cm Neck Range of Motion: Full ROM Neck Circumference: Normal Teeth Condition: Removable Dentures/Plates Upper, Removable Dentures/Plates Lower and Edentulous ASA Classification ASA Score: ASA 3 Emergency Case?: No NPO Status NPO Status: NPO Clears >2 hours, Solids >8 hours Anesthesia Plan Resuscitation Status: Full Code Anesthesia Technique: General Anesthesia Airway Planned: Natural Airway Monitors Used: Standard Monitors Preoperative Comments:: Short gut syndrome requiring TPN.
[2024-05-28 06:15] VITALS: BP 116/80; PULSE 93; RESP 18; TEMP 36.1; O2SAT 98
--- NOTE | 2024-05-28 06:45 | DI.RAD_ITS ---
Exam(s) XR FLOURO OR C-ARM <1 HR EXAM: XR FLOURO OR C-ARM <1 HR CLINICAL HISTORY: groshong placement TECHNIQUE: 2D and realtime digital imaging was performed. CONTRAST MATERIAL: Refer to procedure report. COMPARISON: No exams were available for comparison FINDINGS: Fluoroscopy was provided for Dr. Michael Oliver during the performance of a Groshong placement. Please refer to the procedure report for complete details. Ka,r=0.39 mGy IMPRESSION: RADIATION DOSE DELIVERED: 0.0 0.0 0
[2024-05-28 06:58] VITALS: BMI 22.1
[2024-05-28] MEDS: Lactated Ringers 1,000 ML 80 ML IV ×2 (06:59→08:03)
[2024-05-28] MEDS: Heparin 500 UNITS/5 ML SYRINGE (08:02)
[2024-05-28] MEDS: Normal Saline 50 ML 29 ML (08:02)
[2024-05-28] MEDS: Bupivacaine 0.5% Pres-Free W/EPI 30 ML VIAL (08:05)
[2024-05-28 08:14] VITALS: BP 104/77; PULSE 70; RESP 16; TEMP 36.5; O2SAT 99
[2024-05-28 08:50] VITALS: BP 110/78; PULSE 82; RESP 18; TEMP 39.2; O2SAT 99
--- NOTE | 2024-05-28 09:04 | W.ANESPOSTOP ---
Postoperative Evaluation Date, Time and Location Date Performed: 05/28/24 Time Performed: 08:52 Patient Location: Day Surgery Unit Vital Signs Most Recent Imported Vital Signs: Most Recent Vital Signs Temp Pulse Resp BP Pulse Ox 36.5 C 70 16 104/77 99 05/28/24 08:14 05/28/24 08:14 05/28/24 08:14 05/28/24 08:14 05/28/24 08:14 Assessment Mental Status: Awake (Alert & Oriented to Patient Baseline) Airway and Respiratory Function: Patent airway with normal (patient baseline) respiratory exam Cardiovascular Function: Hemodynamically Stable Hydration Status: Adequately Hydrated Nausea & Vomiting: No Nausea or Vomiting Pain: Pt. Denies Any Pain Peripheral Nerve Block: Patient did not receive a nerve block
== END 2024-05-28 09:07 | disposition home or self-care (01) ==
LOC: SUR 06:05
PROVIDERS: PCP Family Medicine; Visit Provider Surgery
PROC: (CPT 36561; principal; 2024-05-28 07:30)
DX: Z68.20 Body mass index [BMI] 20.0-20.9, adult; E46 Unspecified protein-calorie malnutrition
CPT/HCPCS: 36561; 76937; 76000; J1642; J2001; J2250; J2405; J2704

== ENCOUNTER → 2024-06-03 12:50 | Outpatient (BNVA) | payer MEDICARE, SELFPAY | PROVIDERS: PCP Family Medicine; Referring Provider Family Medicine; Visit Provider Surgery | DX: Z48.02 Encounter for removal of sutures (principal) ==

== ENCOUNTER 2024-06-13 13:00 | Outpatient (RCR) | payer MEDICARE, SELFPAY ==
--- OUTSIDE RECORDS SUMMARY | 2024-05-30 01:13 | XMS_ITS | Encounter Summary ---
Author Organization [facility] Address [facility] [place] [address] Care Team Providers Care Direct Marketing Intern Name Role Phone Natty Mckinney MD Primary Care Provider [phone] Reason for Visit * Reason Comments Establish Care B OA of CMC joint * Consultation (Routine) - Closed Specialty Diagnoses / Procedures Referred By Contac t Referred To Contact Orthopaedics Diagnoses Osteoarthritis of carpometacarpal (CMC) joint of thumb, unspecified laterality, unspecified osteoarthritis type Ulnar abutment syndrome of both wrists Ector Irizarry MD [address] [place] [address] Willie Rivas MD [facility] [place] [address] Referral ID Status Reason Start Date Expiration Date V isits Requested Visits Authorized [id number] Closed Consult, Test & Treat PCP Updated and/or Approved 02/08/2022 02/08/2023 6 6 Encounter Details Date Type Department Care Team (Latest Contact Info) Description 03/22/2022 1:15 PM EDT Office [place] [address] Willie Rivas MD [facility] ORTHOPAEDIC SURGERY [place], [place] [id number] Primary osteoarthritis of both first carpometacarpal joints Social History Tobacco Use Types Packs/Day Years Used Date Smoking Tobacco: Every Day Cigarettes Smokeless Tobacco: Never Comments:rolls own cigarette . started smoking 14 yrs old Alcohol Use Standard Drinks/Week Comments Yes 0 (1 standard drink = 0.6 oz pur e alcohol) 1 beer a month Sex and Gender Information Value Date Recorded Sex Assigned at Not on file Gender Identity Not on file Sexual Orientation Not on file documented as of this [...] EDT documented in this encounter Progress Notes * Willie Rivas MD - 03/22/2022 1:15 PM EDT Krishan Monte is a 56-year-old male who is seeing me for bilateral thumb base pain. He was referred for this consultation by Ector Irizarry MD. 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 Examination reveals a pleasant alert male in no apparent distress. He does smell of tobacco. He hastenderness to palpation over his right pisotriquetral joint. His digits are sensate and well perfused bilaterally. He also has tenderness over both thumb CMC joints, more on the left than on the right. There is a subtle amount of crepitus with compression of the left thumb CMC joint. He has no dermatologic lesions. There is no significant joint swelling in his hands. His most recent hand x-rays were reviewed from [facility] and were done on10/07/2020. These show bilateral basal joint arthritis. These were personally reviewed by me today. Assessment: Bilateral thumb basal joint arthritis Plan. I suggested that he consider corticosteroid injection into his basal joints under fluoroscopic guidance as his next step. He has had this done only without imaging. He is not sure if he wishes to do this but if he does he would like to have this done closer to home. I will send a copy of thisnote to Dr. Irizarry so he can schedule the patient to have a basal joint fluoroscopically guided steroid injections in [place] should the patient decide to move forth with such. We also did discussed the options of CMC joint arthroplasty, denervation, or basal joint fat grafting should he decide to consider surgical intervention but currently he is not interested in these options. documented in this encounter Plan of Treatment Not on file documented as of this encounter Visit Diagnoses Diagnosis Primary osteoarthritis of both first carpometacarpal joints Primary localized osteoarthrosis, hand documented in this encounter Care Teams Direct Marketing Intern Relationship Specialty Start Date End Date Natty Mckinney MD [address] [place] [address] PCP - General 10/11/10 documented as of this encounter
--- OUTSIDE RECORDS SUMMARY | 2024-05-30 01:13 | XMS_ITS | Encounter Summary ---
Author Organization [facility] [place] [address] Care Team Providers Care Psychologist Educational Name Role Phone Natty Mckinney MD Primary Care Provider [phone] Encounter Details Date Type Department Care Team (Late st Contact Info) Description 12/25/2023 Telephone Hematology/Oncology at [address] [phone] Rona Cornell Social History Tobacco Use Types Packs/Day Years [...] on filedocumented in this encounter Care Teams Psychologist Educational Relationship Specialty Start Date End Date Natty Mckinney MD [address] [place] [address] PCP - General 10/11/10 documented as of this encounter
--- OUTSIDE RECORDS SUMMARY | 2024-05-30 01:13 | XMS_ITS | Encounter Summary ---
Author Organization [facility] [place] [address] Care Team Providers Care Straight Line Press Setter Name Role Phone Natty Mckinney MD Primary Care Provider [phone] Encounter Details Date Type Department Care Team (Late st Contact Info) Description 09/12/2023 Orders Only Radiation Oncology at [address] [phone] Monica Bonds PA [facility] DR HEMATOLOGY [place] [address] Malignant neoplasm of prostate Social History Tobacco Use Types Packs/Day Years [...] as of this encounter Plan of Treatment Scheduled Orders Name Type Priority Associated Diagnoses Orde r Schedule PSA (Ultrasensitive) Lab Routine Malignant neoplasm of prostate Expected: 10/02/2023 (Approximate), Expires: 04/02/2024 documented as of this encounter Visit Diagnoses Diagnosis Malignant neoplasm of prostate documented in this encounter Care Teams Straight Line Press Setter Relationship Specialty Start Date End Date Natty Mckinney MD [address] [place] [address] PCP - General 10/11/10 documented as of this encounter
--- OUTSIDE RECORDS SUMMARY | 2024-05-30 01:13 | XMS_ITS | Encounter Summary ---
Author Organization Formerly [facility] [place] [address] Care Team Providers Care Pocketed Spring Assembler Name Role Phone Natty Mckinney MD Primary Care Provider [phone] Encounter Details Date Type Department Care Team (Late st Contact Info) Description 10/11/2022 Telephone [place] [address] Natty Lawton OPTOELECTRONICS ENGINEER [facility] [place] [address] Social History Tobacco Use Types Packs/Day Years [...] documented as of this encounter Miscellaneous Notes * Telephone Encounter - Natty Lawton APRN - 10/11/2022 3:30 PM EST I called Krishan with results of the imaging second read. He is in favor of getting bone scan which I will order. Related to the unexpected finding of the hypoenhancing inferiro right hepatic lesion, he has GI evaluating his liver dz out of [facility]. He does not know the GI doctor's name. I have forwarded the imaging second read (Through Arun Lyle our [facility] church secretary) to Krishan's PCP. I tried to call her office again today but it is currently closed. However, Kyle will fax the report to her attn. Narrative & Impression EXAMINATION: REQUEST FOR 2ND READ CT ABDOMEN AND PELVIS ?? CLINICAL HISTORY: sclerotic bone lesion L iliac. Report from [facility] inconsistent with one comment showing lesion more prominent in LAST READ and then impression with enlarging sclerotic lesion. Possible need for bone bx. PSA going down. ?? TECHNIQUE: Reinterpretation of outside CT of the abdomen and pelvis performed with intravenous contrast at [facility]. Oral contrast was also administered. Arterial and portal venous phases were performed. ?? COMPARISON: Radiation planning CT 01/28/2020 ?? FINDINGS: Lower chest: Normal. ?? Liver: Normal size and attenuation. Subtle area of decreased enhancement in the inferior right hepatic lobe on portal venous phase images measuring approximately 1.8 cm (series 11 image 28). Bile ducts: Nondilated. Gallbladder: No calcified gallstones. Borderline gallbladder wall thickening, similar to prior no pericholecystic fluid or stranding.. Pancreas: Normal attenuation without ductal dilatation. Spleen: Normal. Adrenals: Normal. Kidneys: Symmetric enhancement. No hydronephrosis. No focal lesion. Urinary Bladder: Decompressed, limiting assessment. ?? Vasculature: No aneurysm. Patent portal vein. Lymph Nodes: No enlarged lymph nodes. Bowel: Status post colectomy with end ostomy in the right lower quadrant. No dilated loops of bowel or bowel wall thickening. Peritoneum and mesentery: No ascites, free air, or loculated fluid collection. No mesenteric inflammation. Abdominal wall: Right lower quadrant ostomy. ?? Reproductive organs: Fiducials noted in the prostate. Osseous structures: Since 2019 there is been minimal increased in size of a now a 14 mm sclerotic lesion within the anterior left iliac wing (series 14 image 511), which previously measured 12 on 01/28/2020 and 13 mm on 02/03/2021. This measures greater than 1100 Hounsfield units. Additional sclerotic lesions in the left iliac (series images 534 and 571), left femoral head (image 710), left ischial (image 718), right acetabulum (image 614) are stable. No new lesions identified. ?? IMPRESSION 1. Mildly increased size of a sclerotic lesion in the left iliac wing since 2019 is indeterminate for active metastasis. The density is more suggestive of a bone island/enostosis. Remainder of smaller sclerotic lesions in the bony pelvis are stable. Consider correlation with nuclear medicine bone scan. 2. Unexpected finding: Indeterminate hypoenhancing inferior right hepatic lesion. Metastasis not excluded. Recommend further evaluation with contrast-enhanced MRI. ?? I have personally reviewed the image(s) and the resident's interpretation and agree with the findings, King Victoria MD at 10/11/2022 2:55 PM ?? Thank you for letting us participate in the care of this patient. If you are a health care provider and have any questions regarding this report, please contact the number below. For patients who have questions please contact the health school child care attendant that requested your imaging first. Electronically signed by: King Victoria MD, [facility] ([phone]), at 10/11/2022 2:55 PM documented in this encounter Plan of Treatment Not on file documented as of this encounter Visit Diagnoses Diagnosis Malignant neoplasm of prostate- Primary documented in this encounter Care Teams Pocketed Spring Assembler Relationship Specialty Start Date End Date Natty Mckinney MD [address] [place] [address] PCP - General 10/11/10 documented as of this encounter
--- OUTSIDE RECORDS SUMMARY | 2024-05-30 01:13 | XMS_ITS | Encounter Summary ---
Author Organization Formerly [facility] [place] [address] Care Team Providers Care Cylinder Batcher Name Role Phone Natty Mckinney MD Primary Care Provider [phone] Encounter Details Date Type Department Care Team (Late st Contact Info) Description 10/10/2022 Telephone [place] [address] Natty Lawton APRN [facility] [address] [place] [address] Social History Tobacco Use Types Packs/Day Years [...] Telephone Encounter - Natty Lawton APRN - 10/10/2022 9:11 AM EST I received a request from a PCP, Natty Ravi to arrange a bone biopsy related to a sclerotic lesion in Pee's L hip. The report from [facility] is inaccurate and states on one hand that sclerotic lesion is noted and is perhaps minimally more prominent ON THE PREVIOUS STUDY and there are other unchanged densities. Then under impression there is a statement: :Very slight increase in the size of the sclerotic bone lesion in the left iliac bone These statements are contradicting each other. I have called the pt and he does not want to have a bone biopsy and he is aware of the reading inconsistencies in the report. Also, his PSA is going down, not up as may be case in advancing Prostate cancer. He will discuss with his PCP in visit in 2 weeks. I notified the PCP office about problems with imaging report and pt does not want bx. Krishan is a minimalist in terms of interventions and would not want to have a bone biopsy. His moreurgent situation he states is a decision about the need for a gallbladder surgery in setting of large hx bowel surgeries and pathology. documented in this encounter Plan of Treatment Not on file documented as of this encounter Results * (ABNORMAL) Request For 2nd Read CT Abdomen & Pelvis (10/10/2022 12:16 PM EST) Anatomical Region Laterality Modality Abdomen, Pelvis SO Impressions 10/11/2022 2:55 PM EST 1. ??Mildly increased size of a sclerotic lesion in the left iliac wing since 2019 is indeterminate for active metastasis. The density is more suggestive of a bone island/enostosis. Remainder of smaller sclerotic lesions in the bony pelvis are stable. Consider correlation with nuclear medicine bone scan. 2. ??Unexpected finding: Indeterminate hypoenhancing inferior right hepatic lesion. Metastasis not excluded. Recommend further evaluation with contrast-enhanced MRI. I have personally reviewed the image(s) and the resident's interpretation and agree with the findings, King Victoria MD at 10/11/2022 2:55 PM Thank you for letting us participate in the care of this patient. ??If you are a health care provider and have any questions regarding this report, please contact the number below. ??For patients who have questions please contact the health child care provider that requested your imaging first. ? Narrative 10/11/2022 2:55 PM EST EXAMINATION: REQUEST FOR 2ND READ CT ABDOMEN AND PELVIS CLINICAL HISTORY: sclerotic bone lesion L iliac. Report from [facility] inconsistent with one comment showing lesion more prominent in LAST READ and then impression with enlarging sclerotic lesion. Possible need for bone bx. PSA going down. TECHNIQUE: Reinterpretation of outside CT of the abdomen and pelvis performed with intravenous contrast at [facility]. Oral contrast was also administered. Arterial and portal venous phases were performed. COMPARISON: Radiation planning CT 01/28/2020 FINDINGS: Lower chest: Normal. Liver: Normal size and attenuation. Subtle area [...] focal lesion. Urinary Bladder: Decompressed, limiting assessment. Vasculature: No aneurysm. Patent portal vein. Lymph Nodes: No enlarged lymph nodes. Bowel: Status post colectomy with end ostomy in the right lower quadrant. No dilated loops of bowel or bowel wall thickening. Peritoneum and mesentery: No ascites, free air, or loculated fluid collection. No mesenteric inflammation. Abdominal wall: Right lower quadrant ostomy. Reproductive organs: Fiducials noted in the prostate. [...] 614) are stable. No new lesions identified. Resulting Agency Comment Unexpected Finding Natty Lawton APRN IMG OUTSIDE INTERPRE TATION ORDERABLES documented in this encounter Visit Diagnoses Diagnosis Malignant neoplasm of prostate- Primary Malignant neoplasm of prostate documented in this encounter Care Teams Cylinder Batcher Relationship Specialty Start Date End Date Natty Mckinney MD [address] [place] [address] PCP - General 10/11/10 documented as of this encounter
--- OUTSIDE RECORDS SUMMARY | 2024-05-30 01:13 | XMS_ITS | Encounter Summary ---
Author Organization [place] [id number] Care Team Providers Care Refinery Operator Helper Name Role Phone aNtty Mckniney MD Primary Care Provider Reason for Referral * Consultation (Routine) - Closed Specialty Diagnoses / Procedures Referred By Contac t Referred To Contact Gastroenterology Diagnoses Crohn's disease with complication, unspecified gastrointestinal tract location Abdominal pain, unspecified abdominal location Weight loss, unintentional IBD- crohns disease/ abd pain/ wt loss Natty Mckinney MD [address] [place] [address] [facility] [address] [place] [phone] Referral ID Status Reason Start Date Expiration Date V isits Requested Visits Authorized [id number] Closed Consult, Test & Treat PCP Updated and/or Approved 01/16/2023 01/16/2024 6 6 Encounter Details Date Type Department Care Team (Latest Contact Info) Description 01/16/2023 Transcribe Orders eDH Incoming Referrals [phone] Natty Mckinney MD [address] [place], [place] [id number] Crohn's disease with complication, unspecified gastrointestinal tract location; Abdominal pain, unspecified abdominal location; Weight loss, unintentional Social History Tobacco Use Types Packs/Day Years [...] of this encounter Plan of Treatment Scheduled Referrals Name Type Priority Associated Diagnoses Orde r Schedule Referral to Gastroenterology Outpatient Referral Routine Crohn's disease with complication, unspecified gastrointestinal tract location Abdominal pain, unspecified abdominal location Weight loss, unintentional Ordered: 01/16/2023 documented as of this encounter Visit Diagnoses Diagnosis Crohn's disease with complication, unspecified gastrointestinal tract location Abdominal pain, unspecified abdominal location Weight loss, unintentional Loss of weight documented in this encounter Care Teams Refinery Operator Helper Relationship Specialty Start Date End Date Natty Mckinney MD [address] [place] [address] PCP - General 10/11/10 documented as of this encounter
--- OUTSIDE RECORDS SUMMARY | 2024-05-30 01:13 | XMS_ITS | Encounter Summary ---
Author Organization [facility]ly [facility] [place] [address] Care Team Providers Care Contract Law Specialist Name Role Phone Natty Mckinney MD Primary Care Provider [phone] Encounter Details Date Type Department Care Team (Late st Contact Info) Description 12/04/2023 Telephone Radiation Oncology at [address] [phone] Rona Cornell Social History Tobacco [...] encounter Miscellaneous Notes * Telephone Encounter - Rona Cornell - 12/04/2023 10:02 AM EST I called Krishan to reschedule his rad onc FUV that he missed back in September. I was unable to reach him so left him a voicemail to call back at [phone]. documented in this encounter Plan of Treatment Not on file documented as of this encounter Visit Diagnoses Not on filedocumented in this encounter Care Teams Contract Law Specialist Relationship Specialty Start Date End Date Natty Mckinney MD [address] [place], [place] [address] PCP - General 10/11/10 documented as of this encounter
--- OUTSIDE RECORDS SUMMARY | 2024-05-30 01:13 | XMS_ITS | Encounter Summary ---
Author Organization Formerly [facility] [place] [address] Care Team Providers Care Stroke Coordinator Name Role Phone Natty Mckinney MD Primary Care Provider [phone] Encounter Details Date Type Department Care Team (Late st Contact Info) Description 03/28/2022 Telephone Radiation Oncology at [address] [phone] Rona Cornell Social History Tobacco [...] * Telephone Encounter - Rona Cornell - 03/28/2022 8:38 AM EDT Left Krishan a voicemail requesting him to return a call to the [facility] office to confirm if he has gone for recent lab work. Labs are required for his 6M FUV with Natty Lawton. documented in this encounter Plan of Treatment Not on file documented as of this encounter Visit Diagnoses Not on filedocumented in this encounter Care Teams Stroke Coordinator Relationship Specialty Start Date End Date Natty Mckinney MD [address] [place] [address] PCP - General 10/11/10 documented as of this encounter
--- OUTSIDE RECORDS SUMMARY | 2024-05-30 01:13 | XMS_ITS | Encounter Summary ---
Author Organization [facility] Address [facility] [place] [address] Care Team Providers Care Anesthesiology Physician Name Role Phone Natty Mckinney MD Primary Care Provider Encounter Details Date Type Department Care Team (Latest Contact Info) Description 09/28/2022 Travel Social History Tobacco Use Types Packs/Day Years [...] on filedocumented in this encounter Care Teams Anesthesiology Physician Relationship Specialty Start Date End Date Natty Mckinney MD [address] [place] [address] PCP - General 10/11/10 documented as of this encounter
--- OUTSIDE RECORDS SUMMARY | 2024-05-30 01:13 | XMS_ITS | Encounter Summary ---
Author Organization [facility] [place] [address] Care Team Providers Care Clay Puddler Name Role Phone Natty Mckinney MD Primary Care Provider [phone] Encounter Details Date Type Department Care Team (Late st Contact Info) Description 12/10/2023 Telephone Radiation Oncology at [address] [phone] Rona Cornell Social History Tobacco [...] * Telephone Encounter - Rona Cornell - 12/10/2023 9:10 AM EST I attempted to contact Krishan again to reschedule him for visits he missed in Fall 2022. I was put straight to voicemail so left him a message instructing him to contact us to reschedule at the [phone] number. documented in this encounter Plan of Treatment Not on file documented as of this encounter Visit Diagnoses Not on filedocumented in this encounter Care Teams Clay Puddler Relationship Specialty Start Date End Date Natty Mckinney MD [address] [place] [address] PCP - General 10/11/10 documented as of this encounter
--- OUTSIDE RECORDS SUMMARY | 2024-05-30 01:13 | XMS_ITS | Encounter Summary ---
Author Organization [facility] [place] [address] Care Team Providers Care Mixer Slagman Name Role Phone Natty Mckinney MD Primary Care Provider [phone] Encounter Details Date Type Department Care Team (Late st Contact Info) Description 09/28/2022 1:00 PM EST Office Visit Radiation Oncology at [address] [address] Natty Lawton, INTERVENTIONIST [facility] [place] [address] Malignant neoplasm of prostate (Primary Dx) Social History Tobacco Use Types Packs/Day Years [...] Sign Reading Time Taken Comments Blood Pressure 145/75 09/28/2022 1:06 PM EST Pulse 72 09/28/2022 1:06 PM EST Temperature 37.3 ??C (99.1 ??F) 09/28/2022 1:06 PM ES T Respiratory Rate 18 09/28/2022 1:06 PM EST Oxygen Saturation 99% 09/28/2022 1:06 PM EST Inhaled Oxygen Concentration - - Weight 63 kg (139 lb) 09/28/2022 1:06 PM EST Height - - Body Mass Index 18.34 09/03/2020 8:54 AM EDT documented in this encounter Progress Notes * Natty Lawton, INTERVENTIONIST - 09/28/2022 1:00 PM ESTSummary: 57 year old M with low- risk prostate cancer (cTx, PSA 7.2, Gl 6). Compl SBRT 03/19/20 No ADT Images from the original note were not included. [facility] [place] [address] Phone: RADIATION ONCOLOGY FOLLOW UP NOTE Date of visit: 09/18/2022 Patient Krishan Monte 1965 PCP: Natty Mckinney MD Urologist: Radiation oncologist: Dr. Santiago Arroyo Chief Complaint: follow up/labs for prostate cancer Time since completed RT: 03/19/20 ADT:none Current treatment:Surveillance HPI: Name Krishan Monte Date of 1965 ? PCP Natty Mckinney MD Referring MD (if different) Dr. Seals ? Diagnosis Cancer Staging Malignant neoplasm of prostate Staging form: Prostate, AJCC 8th Edition - Clinical: Stage Unknown (cTX, cN0, cM0, PSA: 7.2, Grade Group: 1) - Signed by Santiago Arroyo MD on 12/16/2019 ?? Krishan Cobb Lavell??is a 54 y.o.??man diagnosed with low-risk prostate cancer (cTx, PSA 7.2, Gl 6).??MRI did not show evidence of SV invasion, OPAL, or lymphadenopathy.??He could not have a RACHAEL due to surgically absent rectum. He completed definitive therapy with SBRT to the prostate. ?? Krishan Reza Monte??is a 54 y.o.??male??with history of Crohn's disease s/p colectomy??recently diagnosed with a??low-risk prostate cancer.??He has had an ileostomy since 1988.??He has surgically absentrectum. ?? Presenting Symptoms / Duration:?? Elevated PSA. Rectal exam not possible as patient is s/p FEB. ?? Prior consultations / recommendations: Dr Seals??10/14 phone note - concerned about as patient may be understaged given MRI findings,patient's age ?? Tumor Board note: Recommendations:?- Treatment >??. ??- Options include extraperitoneal Robotic Prostatectomy vs. Open Prostatectomy vs. Radiation ?? PSA History:?? 09/08/19:??6.38 06/19/19: ?7.2 01/06/19: ?5.4 08/15/16: ?3.32 04/16/15: ?3.8 04/18/13: ?4.57 11/22/12: ?4.69 ?? Pathology Results / Location:?? CT guided biopsy 09/08/19: Gl 3+3 x 4/12 cores ?? Pertinent Imaging Studies:?? mpMRI 09/23/19: ??- 29.2cc gland size ??- PI RADS-5, 3cm lesion RT mid/base PZ lesion ??- no LAD/OPAL ?? INTENT OF THERAPY: Definitive (Curative) ?? RADIATION TREATMENT DETAILS: ?? Treatment Site Prostate??SBRT Prescribed Dose 36.25 Gy in 5 fractions ? Start Date End Date 03/10/20 03/19/20 ?? BARGE ENGINEER TREATMENT MANCILLA: ?? Interim HPI: 04/07/21 second read bone scan: FADUMO, no osseous mets. ?? Medications 03/22/22 2074 Medication Sig Taking? celecoxib (CeleBREX) 200 mg Capsule gabapentin (Neurontin) 300 mg Capsule TAKE ONE CAPSULE BY MOUTH THREE TIMES A DAY NEEDED IN ADDITION TO THE 100MG CAPSULES gabapentin (Neurontin) 100 mg Capsule TAKE ONE CAPSULE BY MOUTH AT BEDTIME THEN TAKE TWO CAPSULES BY MOUTH AT BEDTIME THEN CAN ADD DAYTIME DOSES UP TO 100MGAM 100MG AT NOON AND 2 ibuprofen (Advil) 600 mg Tablet Take by mouth. nicotine (Nicoderm CQ) 21 mg/24 hr Patch 24 hr APPLY ONE PATCH TO SKIN ONCE DAILY - CHANGE EVERY 24HOURS. DO NOT SMOKE WHILE WEARING THE PATCH ciprofloxacin (Cipro) 500 mg Tablet TAKE ONE TABLET BY MOUTH TWICE A DAY FOR A WEEK THEN 1 TABLET DAILY aspirin 81 mg Tablet, Chewable Take 81 mg by mouth Daily. diclofenac (VOLTAREN) 1 % Gel Apply topically. naloxone 4 mg/actuation Section, Non-Aerosol by Nasal route. Ostomy Supplies Misc Daily. cyanocobalamin, vitamin B-12, 1,000 mcg/mL Solution ADM 1 ML IM Q MONTH omeprazole (PriLOSEC) 40 mg Capsule, Delayed Release(E.C.) Take 1 tablet daily 1/2 hour prior to breakfast while you are taking dexamethasone, to prevent upset stomach. Patient not taking: No sig reported ondansetron ODT (Zofran-ODT) 4 mg Tablet, Rapid [...] PO, Three times daily No Known Allergies Past Medical History: Diagnosis Date ??? Cataract ??? Crohn disease diagnosed at age 10 yrs ??? Ileostomy in place 1988 Chrons disease Past Surgical History: Procedure Laterality Date ??? CATARACT REMOVAL WITH IMPLANT Bilateral ??? COLON SURGERY multiple surgeries for Crohn's disease. no large bowel. Has ileostomy ??? CT GUIDED BIOPSY OTHER 10/08/2019 CT Guided Biopsy Other 10/08/2019 [facility] RAD CAT SCAN Family History Problem Relation Age of Onset ??? Prostate Cancer Father ??? Lung Cancer Maternal Aunt ??? Cancer Paternal Grandfather Social History Tobacco Use ??? Smoking status: Current Every Day Smoker Packs/day: 1.50 ??? Smokeless tobacco: Never Used ??? Tobacco comment: rolls own cigarette. started smoking 14 yrs old Vaping Use ??? Vaping Use: Never used Substance Use Topics ??? Alcohol use: Yes Comment: 1 beer a month ??? Drug use: Yes Types: Marijuana Comment: smokes it 2 -3 a week Review of Symptoms: I reviewed the IPSS/BALDEV/Epic-Cp survey results from today (not offered at desk) Patient concerns for today's visit: He is following closely with his PCP who is based in [facility] system. She follows his vit and mineral levels for replacement. He has vowed that he will never go back on TPN for nutrition and feels life is at an end at that point. He does currently have some liver and gallbladder issues which require further w/u. General:doing okay but has chronic pain in abdom. Fatigue:Is prominent due to severe Crohn dz. Weight/appetite/diet 139lb lb today Respiratory:no issues despite smoking 1.5-3 ppd (currently is a 2ppd) GI:colostomy, Crohn's dz, abdomen. He does relate dark stool but following with PCP. He says ferritin has been ok in past and PCP is watching his nutritional parameters. :Doesn't really feel he empties but he believes it is related to odd arrangement of his abdom contents with pressure on his bladder. He does not have current hematuria. Endocrine:no issues known, PCP is going to check TSH Sexual health:drive is good, and sexual function. Muscle skeletal: had knee replacement before the prostate ca dx and that has fully recovered he feels. Bone health: taking Vit D/ Calcium, had R knee replacement. 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 Mood:no depression/anxiety Sleep: no problems with sleep Function:on SSDI Exercise:walks dog 3-4 times per day Smoking:current everyday smoker,1.5-3 ppd , cannot eat well so smoking is the thing he can enjoy. Alcohol:no drinking now Support/ social relationships: has none listed, has mini germaine who is a delightful addition to his life. Advanced directives not discussed. Financial/transportation concerns:none right now Performance Status: KPS Score ECOG Grade Definition 90-100 0 Fully active, able to carry on all pre-disease performance without restriction x 70-80 1 Restricted in physically strenuous activity [...] selfcare; totally confined to bed or chair Physical Examination: Body mass index is 18.34 kg/m??. BP 145/75 (Patient Position: Sitting) Pulse 72 Temp 37.3 ??C (99.1 ??F) (Temporal) Resp 18 Wt 63 kg (139 lb) Constitutional: seen In clinic, no distress HENT: normocephalic, anicteric Cardiovascular: Rate and Rhythm: Normal rate and regular rhythm. Heart sounds: Normal heart sounds. No murmur Pulmonary: Effort: Pulmonary effort is normal. No cough, viral sx, no congestion or wheezing. Abdomen: Flat abdomen and not palpated per request as can be painful to pt based on his Crohn's dz. Genitourinary: Rectum: could not have a RACHAEL due to surgically absent rectum. Musculoskeletal: Normal range of motion. General: No swelling or deformity. Comments: Ambulates without assistance Skin: General: Skin is warm and dry. Neurological: General: No focal deficit present. Mental Status: alert and oriented to person, place, and time. Gait: Gait normal. Psychiatric: Mood and Affect: Mood normal. Behavior: Behavior normal. Thought Content: Thought content normal. Judgment: Judgment normal. New Labs Reviewed this visit: Date PSA Test Notes 09/18/22 1.1 07/08/21 1.7 12/21/20 1.6 04/16/20 1.9 09/08/19 6.38 06/19/19 7.2 01/06/19 5.4 08/15/16 3.32 04/16/15 3.8 04/18/13 4.57 11/22/12 4.69 Assessment: 57 y.o. presenting for follow up/ lab for prostate cancer He has had prostatectomy and has maintained low stable PSA but not undetectable. A second read of his bone scan in March 2021 showed no evidence of osseous metastatic dz. Surgically absent rectum secondary to Crohn's dz and absent colon. He feels that when he is no longer able to absorb nutrients then he is done. He does not want to be reliant on TPN. He does not enjoy food as any intake leads to gut pain and this has been long standing over decades, in fact much of his life. BMI 19.43 because food is not enjoyable, his smoking is chief oral comfort and he will not give up. He feels that he is being carefully monitored by his PCP for anemia and deficiencies. He currently is in relationship with 3 different women and made assumption that he is probably sterile r/t radiation. He has usually dry ejaculate but sometimes there is fluid. Sex protection for prev of and STDs still should be occurring. Medical Decision Making/Recommendations/Plan: # prostate cancer: reviewed PSA results. Low level stable PSA. No concerning reported symptoms or physical examination findings today. # effects of EBRT: Acute: 1. LUTS (lower urinary tract symptoms) 2. Bowel dysfunction 3. Sexual health/Erectile Dysfunction 4. Fatigue 5. Mood changes Late: We reviewed potential late effects of radiation that require medical evaluation including : 1. Changes in urinary flow/difficulty passing urine (scarring from radiation) 2. Blood in urine (may be infection, inflammation bladder wall (cystitis), formation of telangiectasia (small, thin blood vessels that are dilated or broken, near the surface of the bladder and may bleed) or bladder/genitourinary cancer 3. Blood in bowel movements (stools)- maybe from hemorrhoids, telangiectasia from radiation, colorectal cancer Symptoms that you should bring to the attention of your provider: Difficulty or changes in your urine flow Blood in your urine or stool # ADT:none # survivorship/lifestyle/wellness: Genetic Risk Evaluation: Body weight/nutrition Exercise:takes dog for many walks through day Bone health:needs knee replacement on L but waiting until he cannot wait any longer. Smokin.5-3ppd Alcohol: none Annual exam with PCP:follows closely with PCP Up to date on vaccinations:has had moderna vax x 2 and booster Colorectal screening:surgically absent rectum Lung cancer screeninppd, would qualify for LDCT scan # resources provided:none # referrals done: none # follow up: Per NCCN guidelines, PSA and history/physical every 6-12 months X 5 years, then annually. Annual RACHAEL (unless PSA undetectable or prostatectomy). PSA may be checked more frequently depending on risk level or other patient specific factors. Next visit:6 months Labs: PSA, testosterone, CBC, CMP Krishan Monte had the opportunity to ask questions and I answered them to the best of my knowledge. Krishan Monte agreed to contact radiation oncology in between visits if he has any questions/concerns or new symptoms in regards to the radiation therapy/prostate cancer Natty Lawton MSN, INTERVENTIONIST, MECHANIC WELDER-C Nurse Practitioner Radiation Oncology documented in this encounter Plan of Treatment Not on file documented as of this encounter Visit Diagnoses Diagnosis Malignant neoplasm of prostate- Primary documented in this encounter Care Teams Mixer Slagman Relationship Specialty Start Date End Date Natty Mckinney MD [address] [place] [address] PCP - General 10/11/10 documented as of this encounter
--- OUTSIDE RECORDS SUMMARY | 2024-05-30 01:13 | XMS_ITS | Clinical Summary ---
Author Organization [facility] Address [facility] [place] [address] Care Team Providers Care Braille And Talking Books Clerk Name Role Phone Natty Mckinney MD Primary Care Provider [phone] Allergies No known active allergies Medications Medication Sig Dispensed Refills Start Date End Date Status diphenoxylate-atropi ne (LOMOTIL) 2.5-0.025 mg per tablet 4 Tablet(s), PO, Three times daily 02/23/2010 Active VENTOLIN HFA 90 mcg/actuation HFA Aerosol Inhaler inhale 1 to 2 puffs by mouth every 4 hours if needed for shortness of breath wheezing cough 0 04/23/2019 Active HYDROcodone-acetamin ophen (NORCO) 10-325 mg Tablet TK 2 TS PO TID WITH AN ADDITIONAL TABLET AT DINNER NEEDED 0 08/22/2019 Active methadone (DOLOPHINE) 10 mg Tablet 15 mg See Admin Instructions. At HS and middle of night. 0 08/22/2019 Active ondansetron ODT (Zofran-ODT) 4 mg Tablet, Rapid Dissolve every 8 hours as needed. 11/28/2019 Active cyanocobalamin, vitamin B-12, 1,000 mcg/mL Solution ADM 1 ML IM Q MONTH 04/24/2020 Active aspirin 81 mg Tablet, Chewable Take 81 mg by mouth Daily. Active diclofenac (VOLTAREN) 1 % Gel Apply topically. 02/07/2021 Active naloxone 4 mg/actuation Sobieski, Non-Aerosol by Nasal route. 02/07/2021 Active Ostomy Supplies Misc Daily. Acti ve ciprofloxacin (Cipro) 500 mg Tablet TAKE ONE TABLET BY MOUTH TWICE A DAY FOR A WEEK THEN 1 TABLET DAILY 09/02/2021 Active celecoxib (CeleBREX) 200 mg Capsule 03/21/2022 Active gabapentin (Neurontin) 100 mg Capsule TAKE ONE CAPSULE BY MOUTH AT BEDTIME THEN TAKE TWO CAPSULES BY MOUTH AT BEDTIME THEN CAN ADD DAYTIME DOSES UP TO 100MGAM 100MG AT NOON AND 2 03/19/2022 Active ibuprofen (Advil) 600 mg Tablet Take by mouth. 04/20/2021 Active nicotine (Nicoderm CQ) 21 mg/24 hr Patch 24 hr APPLY ONE PATCH TO SKIN ONCE DAILY - CHANGE EVERY 24 HOURS. 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 Diagnosed with prostates cancer 65 Maternal Aunt Paternal Grandfather throat canc er Social History Tobacco Use Types Packs/Day Years [...] on file Sexual Orientation Not on file Last Filed Vital Signs [...] (139 lb) 09/28/2022 1:06 PM EST Height 185.4 cm (6' 1) 09/03/2020 8:54 AM EDT Body Mass Index 18.34 09/03/2020 8:54 AM EDT Plan of Treatment Health Maintenance Due Date Last Done Comments CT Colonography 1965 Colonoscopy 1965 Colorectal Cancer Screening 1965 FIT DNA 1965 FIT 1965 Sigmoidoscopy (10 year) with FIT yearly 1965 Sigmoidoscopy 1965 Pneumococcal Vaccine: At-Risk 5-64yrs (1 of 2 - PCV) 0 1970 HIV screen 1982 Hepatitis C Screening 1982 Lipid Screening 1982 Tdap adult 1983 Tetanus vaccine 1983 Zoster vaccine (1 of 2) 2014 Advance Directive 2019 Covid-19 Vaccine (24 season) 2023 Influenza (Flu) vaccine (1 o f 1 - Influenza standard series) 07/20/2024 Procedures Procedure Name Priority Date/Time Associated Diagnosis Comments LAB SCAN 05/05/2024 12:00 AM EDT from Last 3 Months Results * Scan Doc: Lab (05/05/2024 12:00 AM EDT) Narrative 05/05/2024 12:00 AM EDT Ordered by an unspecified provider. Scanning Provider MEDIA MGR SCAN EXT O RDR/RSLT from Last 3 Months Advance Directives * Full Code (Latest Code Status on File) Date Activated Date Inactivated Comments 01/14/2020 10:43 AM 01/15/2020 4:34 AM Question Answer Comments Does patient have capacity to make decision: Yes * Full Code Date Activated Date Inactivated Comments 10/08/2019 8:44 AM 10/09/2019 4:32 AM Question Answer Comments Does patient have capacity to make decision: Yes Care Teams Braille And Talking Books Clerk Relationship Specialty Start Date End Date Natty Mckinney MD [address] [place] [address] PCP - General 10/11/10
--- OUTSIDE RECORDS SUMMARY | 2024-05-30 01:13 | XMS_ITS | Encounter Summary ---
Author Organization [facility] [place] [address] Care Team Providers Care Chemical Process Equipment Operator Name Role Phone Natty Mckinney MD Primary Care Provider Encounter Details Date Type Department Care Team (Late st Contact Info) Description 09/22/2022 Ancillary Procedure [place] [id number] Natty Mckinney MD [address] [place] [address] Social History Tobacco Use Types Packs/Day Years [...] on file documented as of this encounter Procedures Procedure Name Priority Date/Time Associated Diagnosis Comments FILM LIBRARY STORAGE ONLY CT ABDOMEN AND PELVIS Routine 09/22/2022 12:00 AM EDT documented in this encounter Results * Film Library- Storage Only CT Abdomen & Pelvis (09/22/2022 12:00 AM EDT) Narrative RAD - 10/10/2022 11:23 AM EST This exam is auto-finalizing. It's purpose is for storage only. Natty Mckinney MD IMG FILM LIBRARY ORD ERABLES [facility] [place] documented in this encounter Visit Diagnoses Not on filedocumented in this encounter Care Teams Chemical Process Equipment Operator Relationship Specialty Start Date End Date Natty Mckinney MD [address] [place] [address] PCP - General 10/11/10 documented as of this encounter
--- OUTSIDE RECORDS SUMMARY | 2024-05-30 01:13 | XMS_ITS | Encounter Summary ---
Author Organization [facility] Address [facility] [place] [address] Care Team Providers Care Mounter Name Role Phone Natty Mckinney MD Primary Care Provider [phone] Encounter Details Date Type Department Care Team (Latest Contact Info) Description 10/10/2022 12:20 PM EST Ancillary Procedure [place] [address] Natty Lawton, PORTFOLIO MANAGEMENT MARKETING [facility] [place] [address] Malignant neoplasm of prostate Social History Tobacco [...] Procedure Name Priority Date/Time Associated Diagnosis Comments REQUEST FOR 2ND READ CT ABDOMEN AND PELVIS Routine 10/10/2022 12:16 PM EST Malignant neoplasm of prostate documented in this encounter Results * (ABNORMAL) Request For 2nd Read CT Abdomen & Pelvis (10/10/2022 12:16 PM EST) Anatomical Region Laterality Modality Abdomen, Pelvis SO Impressions 10/11/2022 2:55 PM EST 1. ??Mildly increased size of a sclerotic lesion in the left iliac wing since 2020 is indeterminate for active metastasis. The density [...] questions please contact the health child care nurse that requested your imaging first. ? Electronically signed by: King Victoria MD, [facility] ([phone]), at 10/11/2022 2:55 PM Narrative 10/11/2022 2:55 PM EST EXAMINATION: REQUEST FOR 2ND READ CT ABDOMEN AND PELVIS CLINICAL HISTORY: sclerotic bone lesion L iliac. Report from [facility] inconsistent with one comment showing lesion more prominent in LAST READ and then impression with enlarging sclerotic lesion. Possible need for bone bx. PSA going down. TECHNIQUE: Reinterpretation of outside CT of the abdomen and pelvis performed with intravenous contrast at [facility]. Oral contrast was also administered. Arterial and [...] Resulting Agency Comment Unexpected Finding Natty Lawton PORTFOLIO MANAGEMENT MARKETING IMG OUTSIDE INTERPRE TATION ORDERABLES documented in this encounter Visit Diagnoses Diagnosis Malignant neoplasm of prostate documented in this encounter Care Teams Mounter Relationship Specialty Start Date End Date Natty Mckinney MD [address] [place] [address] PCP - General 10/11/10 documented as of this encounter
--- OUTSIDE RECORDS SUMMARY | 2024-05-30 01:13 | XMS_ITS | Encounter Summary ---
Author Organization [facility] Address [facility] [place] [address] Care Team Providers Care Forestry Technician Name Role Phone Natty Mckinney MD Primary Care Provider [phone] Reason for Referral * Consultation (Routine) - Canceled Specialty Diagnoses / Procedures Referred By Contangela guerrero Referred To Contact Internal Medicine Diagnoses Weight loss, unintentional Crohn's disease with complication, unspecified gastrointestinal tract location Natty Mckinney MD [address] [place] [address] [facility] Internal Medicine [address] [place] [address] Referral ID Status Reason Start Date Expiration Date Visits Requested Visits Authorized [id number] Canceled Continuity of Care PCP Updated and/or Approved 01/16/2023 01/16/2024 12 12 Encounter Details Date Type Department Care Team (Latest Contact Info) Description 01/16/2023 Transcribe Orders eD Incoming Referrals [phone] Natty Mckinney MD [address] [place] [address] Weight loss, unintentional; Crohn's disease with complication, unspecified gastrointestinal tract location Social History Tobacco Use Types Packs/Day Years [...] Associated Diagnoses Orde r Schedule Referral to Nutrition Services Outpatient Referral Routine Weight loss, unintentional Crohn's disease with complication, unspecified gastrointestinal tract location Ordered: 01/16/2023 documented as of this encounter Visit Diagnoses Diagnosis Weight loss, unintentional Loss of weight Crohn's disease with complication, unspecified gastrointestinal tract location documented in this encounter Care Teams Forestry Technician Relationship Specialty Start Date End Date Natty Mckinney MD [address] [place] [address] PCP - General 10/11/10 documented as of this encounter
--- OUTSIDE RECORDS SUMMARY | 2024-05-30 01:14 | XMS_ITS | Encounter Summary ---
Author Organization [facility] [place] [address] Care Team Providers Care Hot Oiler Name Role Phone Natty Mckinney MD Primary Care Provider [phone] Encounter Details Date Type Department Care Team (Late st Contact Info) Description 05/19/2020 Telephone Radiation Oncology at [address] [address] Arun Lyle Social History Tobacco Use Types Packs/Day Years [...] on filedocumented in this encounter Care Teams Hot Oiler Relationship Specialty Start Date End Date Natty Mckinney MD [address] [place] [address] PCP - General 10/11/10 documented as of this encounter
--- OUTSIDE RECORDS SUMMARY | 2024-05-30 01:14 | XMS_ITS | Encounter Summary ---
Author Organization [facility] [place] [address] Care Team Providers Care Propulsion Engineer Name Role Phone Natty Mckinney MD Primary Care Provider [phone] Reason for Visit * Consultation (Routine) - Closed Specialty Diagnoses / Procedures Referred By Claire guerrero Referred To Contact Radiation Oncology Diagnoses Malignant neoplasm of prostate Procedures Simulation for Radiation Therapy Planning Santiago Arroyo MD [address] [place] [address] [place] [address] [facility] [place] Rad Onc Office [address] [place] [id number] Referral ID Status Reason Start Date Expiration Date V isits Requested Visits Authorized [id number] Closed Consult, Test & Treat 12/22/2019 12/21/2020 1 1 Encounter Details Date Type Department Care Team (Late st Contact Info) Description 01/28/2020 2:30 PM EDT Ancillary Appointment Radiation Oncology at [address] [phone] Santiago Arroyo MD [address] [place] [address] DR [place] [address] Social History Tobacco Use Types Packs/Day Years [...] documented as of this encounter Patient Instructions * Patient Instructions* Tamara Boone RN - 01/28/2020 2:30 PM EDT Patient Education: ?? You are scheduled for radiation treatment using SBRT (steriotactic body radiation therapy) to treat prostate cancer. ?? Please arrive 30 minutes prior to your scheduled treatment time and check in with the Scooping Machine Tender ?? You will have your vital signs checked, your allergies and medications will be reviewed and yourdoctor will see you briefly before the treatment [...] doctor documented in this encounter Progress Notes * Santiago Arroyo MD - 01/28/2020 2:30 PM EDT Simulation Note for External Beam Radiation Treatment Planning [facility] Mark Monte is a 54 y.o. year [...] and organs/structures at risk. These images will beused to create a customized treatment plan employing multileaf collimators and beams-eye view to treat the target to prescription dose while maximally sparing organs at risk, with the overall goal ofmaximizing the likelihood of a favorable disease response while minimizing the likelihood of any short term side effects or assisted complications of therapy. I anticipate his SBRT [...] on filedocumented in this encounter Care Teams Propulsion Engineer Relationship Specialty Start Date End Date Natty Mckinney MD [address] [place] [address] PCP - General 10/11/10 documented as of this encounter
--- OUTSIDE RECORDS SUMMARY | 2024-05-30 01:14 | XMS_ITS | Encounter Summary ---
Author Organization [facility] Address [facility] [place] [address] Care Team Providers Care Media Executive Name Role Phone Natty Mckinney MD Primary Care Provider [phone] Reason for Referral * Consultation (Routine) - Closed Specialty Diagnoses / Procedures Referred By Contangela t Referred To Contact Radiation Oncology Diagnoses Malignant neoplasm of prostate Daniele Seals MD [facility] [place] [address] [facility] Rad Onc Treatment [address] [place] [phone] Referral ID Status Reason Start Date Expiration Date V isits Requested Visits Authorized [id number] Closed Consult, Test & Treat 12/03/2019 12/02/2020 1 1 Encounter Details Date Type Department Care Team (Late st Contact Info) Description 12/03/2019 [place] [address] Daniele Seals MD [facility] [place] [place] [address] Malignant neoplasm of prostate Social History Tobacco Use Types Packs/Day Years Used Date Smoking Tobacco: Never Assessed Sex and Gender Information Value Date Recorded Sex Assigned at Not on file Gender Identity Not on file Sexual Orientation Not on file documented as of this encounter Progress Notes * Daniele Seals MD - 12/03/2019 8:41 AM EST I called to review tumor board recs for either extraperitoneal RP or XRT. He has concerns about having more surgery d/t his history and would like to meet with radiation oncology first to discuss options. If he decides that he is more interested in surgery then I will have him meet with my partner, Dr. Dias to discuss extraperitoneal RP. documented in this encounter Plan of Treatment Scheduled Referrals Name Type Priority Associated Diagnoses Orde r Schedule Referral to Radiation Oncology Outpatient Referral Routine Malignant neoplasm of prostate Ordered: 12/03/2019 documented as of this encounter Visit Diagnoses Diagnosis Malignant neoplasm of prostate documented in this encounter Care Teams Media Executive Relationship Specialty Start Date End Date Natty Mckinney MD [address] [place] [address] PCP - General 10/11/10 documented as of this encounter
--- OUTSIDE RECORDS SUMMARY | 2024-05-30 01:14 | XMS_ITS | Encounter Summary ---
Author Organization [facility] [place] [address] Care Team Providers Care Bus Mechanic Name Role Phone Natty Mckinney MD Primary Care Provider [phone] Encounter Details Date Type Department Care Team (Late st Contact Info) Description 05/11/2020 Telephone Radiation Oncology at [address] [address] Tamara Boone RN Social History Tobacco Use Types Packs/Day Years [...] encounter Miscellaneous Notes * Telephone Encounter - Tamara Boone RN - 05/11/2020 4:47 PM EDT Radiation Oncology Nurse Telephone Note [facility] [place], [place] Telephone call to patient to inquire if he has submitted urine for UA to r/o UTI. He states that he has not done the UA yet. He has been taking the OTC Pyridium 2 of the 99.5mg tabsTID and is having very little dysuria. very small, not enough to worry about. He states his urineis a bright orange red color and verbalizes [...] on filedocumented in this encounter Care Teams Bus Mechanic Relationship Specialty Start Date End Date Natty Mckinney MD [address] [place] [address] PCP - General 10/11/10 documented as of this encounter
--- OUTSIDE RECORDS SUMMARY | 2024-05-30 01:14 | XMS_ITS | Encounter Summary ---
Author Organization [facility] [place] [address] Care Team Providers Care Manufacturing Automation Engineer Name Role Phone Natty Mckinney MD Primary Care Provider [phone] Encounter Details Date Type Department Care Team (Late st Contact Info) Description 01/02/2020 Orders Only Radiation Oncology at [address] [id number] Santiago Arroyo MD [address] [place] [address] DR RADIATION ONCOLOGY [place], [place] [id number] Malignant neoplasm of prostate Social History Tobacco [...] prostate documented in this encounter Care Teams Manufacturing Automation Engineer Relationship Specialty Start Date End Date Natty Mckinney MD [address] [place], [place] [address] PCP - General 10/11/10 documented as of this encounter
--- OUTSIDE RECORDS SUMMARY | 2024-05-30 01:14 | XMS_ITS | Encounter Summary ---
Author Organization [place] [address] Care Team Providers Care Audio Visual Production Specialist Name Role Phone Natty Mckinney MD Primary Care Provider Encounter Details Date Type Department Care Team (Late st Contact Info) Description 10/07/2020 Ancillary Procedure [facility] [place] [phone] Natty Mckinney MD [address] [place] [address] Social History Tobacco Use Types Packs/Day Years [...] Associated Diagnosis Comments FILM LIBRARY STORAGE ONLY DX HAND Routine 10/07/2020 12:00 AM EST documented in this encounter Results * Film Library- Storage Only DX Hand (10/07/2020 12:00 AM EST) Narrative [facility] - 01/31/2022 11:11 AM EDT This exam is auto-finalizing. It's purpose is for storage only. Natty Mckinney MD IMG FILM LIBRARY ORD ERABLES [facility] [place], [place] documented in this encounter Visit Diagnoses Not on filedocumented in this encounter Care Teams Audio Visual Production Specialist Relationship Specialty Start Date End Date Natty Mckinney MD [address] [place] [address] PCP - General 10/11/10 documented as of this encounter
--- OUTSIDE RECORDS SUMMARY | 2024-05-30 01:14 | XMS_ITS | Encounter Summary ---
Author Organization [facility] [place] [address] Care Team Providers Care Weigher Bulker Name Role Phone Natty Mckinney MD Primary Care Provider [phone] Encounter Details Date Type Department Care Team (Late st Contact Info) Description 05/26/2020 Telephone Radiation Oncology at [address] [phone] Tamara Boone RN Social History [...] PM EDT Radiation Oncology Nurse Telephone Note [place], [place] Patient states that he is changing his pharmacy from [facility] to [facility]. He asked that the Dexamethasone 1 mg and Flomax prescriptions be sent to [facility]. He ran out of the Flomax yesterday and feels it does help He is still having some flow problems with urine . It takes a while to empty bladder. Denies straining. Dysuria is now resolved, but flow still an issue. Prescriptions for these medications were sent to [email or web address] per his request. Dr Arroyo informed of this via this note. documented in this encounter Plan of Treatment Not on file documented as of this encounter Visit Diagnoses Diagnosis Malignant neoplasm of prostate documented in this encounter Care Teams Weigher Bulker Relationship Specialty Start Date End Date Natty Mckinney MD [address] [place] [address] PCP - General 10/11/10 documented as of this encounter
--- OUTSIDE RECORDS SUMMARY | 2024-05-30 01:14 | XMS_ITS | Encounter Summary ---
[place] [address] Care Team Providers Care Make Up Artist Name Role Phone Natty Mckinney MD Primary Care Provider [phone] Reason for Visit * - Closed Specialty Diagnoses / Procedures Referred By Contac t Referred To Contact Procedures Film Library- Storage Only nuclear medicine Natty Mckinney MD [address] [place] [address] Referral ID Status Reason Start Date Expiration Date Visits Re quested Visits Authorized [id number] Closed 03/31/2021 03/31/2022 1 1 Encounter Details Date Type Department Care Team (Late st Contact Info) Description 03/30/2021 Ancillary Procedure [place] [address] Natty Mckinney MD [address] [place] [address] Social History Tobacco Use Types Packs/Day Years [...] Associated Diagnosis Comments FILM LIBRARY STORAGE ONLY NUCLEAR MEDICINE Routine 03/30/2021 12:00 AM EDT documented in this encounter Results * Film Library- Storage Only nuclear medicine (03/30/2021 12:00 AM EDT) Narrative [facility] - 03/31/2021 9:16 AM EDT This exam is auto-finalizing. It's purpose is for storage only. Natty Mckinney MD G FILM LIBRARY ORD ERABLES Performing Organization Address City/State/[facility] Co de Phone Number [place], [place] documented in this encounter Visit Diagnoses Not on filedocumented in this encounter Care Teams Make Up Artist Relationship Specialty Start Date End Date Natty Mckinney MD [address] [place] [address] PCP - General 10/11/10 documented as of this encounter
--- OUTSIDE RECORDS SUMMARY | 2024-05-30 01:14 | XMS_ITS | Encounter Summary ---
Author Organization [facility] [place] [address] Care Team Providers Care Bioanalyst Name Role Phone Natty Mckinney MD Primary Care Provider [phone] Encounter Details Date Type Department Care Team (Late st Contact Info) Description 12/02/2019 [place] [address] Daniele Seals MD [facility] [place] [address] Social History Tobacco Use Types Packs/Day Years Used Date Smoking Tobacco: Never Assessed Sex and Gender Information Value Date Recorded Sex Assigned at Not on file Gender Identity Not on file Sexual Orientation Not on file documented as of this encounter Miscellaneous Notes * Telephone Encounter - Nicole Mayer - 12/02/2019 4:[address] Nicholson from [facility] called regarding pt. Pt had CT Prostate BX in 09/2019 - Case discussed at Tumor Board 10/30/19, no appointments have been scheduled to discuss plan with patient. Please Advise or Pt can be reached at [phone] documented in this encounter Plan of Treatment Not on file documented as of this encounter Visit Diagnoses Not on filedocumented in this encounter Care Teams Bioanalyst Relationship Specialty Start Date End Date Natty Mckinney MD [address] [place] [address] PCP - General 10/11/10 documented as of this encounter
--- OUTSIDE RECORDS SUMMARY | 2024-05-30 01:14 | XMS_ITS | Encounter Summary ---
Author Organization [facility] [place] [address] Care Team Providers Care Health Professional Name Role Phone Natty Mckinney MD Primary Care Provider [phone] Encounter Details Date Type Department Care Team (Late st Contact Info) Description 12/22/2019 Orders [place] [address] Norman De Oliveira, [facility] [place] [address] Social History Tobacco Use Types Packs/Day Years [...] on filedocumented in this encounter Care Teams Health Professional Relationship Specialty Start Date End Date Natty Mckinney MD [address] [place] [address] PCP - General 10/11/10 documented as of this encounter
--- OUTSIDE RECORDS SUMMARY | 2024-05-30 01:14 | XMS_ITS | Encounter Summary ---
Author Organization [facility] [place] [address] Care Team Providers Care Tooling Specialist Name Role Phone Natty Mckinney MD Primary Care Provider [phone] Encounter Details Date Type Department Care Team (Latest Contact Info) Description 10/30/2019 Multidisciplinary [place] [address] Pee Pan MD [facility] [place] [address] Social History Tobacco Use Types Packs/Day Years Used Date Smoking Tobacco: Never Assessed Sex and Gender Information Value Date Recorded Sex Assigned at Not on file Gender Identity Not on file Sexual Orientation Not on file documented as of this encounter Progress Notes * Pee Pan MD - 10/30/2019 4:48 PM EST - Tumor Board Note Date Presented: 10/30/2019 Presenting Physician: Arnel Diagnosis/Tumor Site: Prostate Cancer - ? Active Surveillance vs. Treatment Recommendations: Extraperitoneal Robotic Prostatectomy vs. Open Prostatectomy vs. Radiation - Plan to discuss options with patient in clinic. DISCLAIMER: The patient was discussed and the tumor board made recommendations but it is ultimatelyup to the treatment provider(s) and the patient to determine the patient???s care. documented in this encounter Plan of Treatment Not on file documented as of this encounter Visit Diagnoses Not on filedocumented in this encounter Care Teams Tooling Specialist Relationship Specialty Start Date End Date Natty Mckinney MD [address] [place] [address] PCP - General 10/11/10 documented as of this encounter
--- OUTSIDE RECORDS SUMMARY | 2024-05-30 01:14 | XMS_ITS | Encounter Summary ---
Author Organization [facility] Address [facility] [place] [address] Care Team Providers Care Food Cooking Machine Operator Name Role Phone Natty Mckinney MD Primary Care Provider [phone] Encounter Details Date Type Department Care Team (Latest Contact Info) Description 01/17/2022 9:00 AM EST Ext Surgery or Single Event [facility] [address] [facility] [place] [address] [facility] [place] [address] Dyspnea, unspecified type Social History Tobacco Use Types Packs/Day Years [...] Procedure Name Priority Date/Time Associated Diagnosis Comments STRESS TEST SCAN 01/17/2022 12:0 0 AM EST ECG SCAN 01/17/2022 12:00 AM EST documented in this encounter Results * SCAN DOC: STRESS TEST (01/17/2022 12:00 AM EST) Anatomical Region Laterality Modality Other Unknown MEDIA MGR SCAN EXT O RDR/RSLT * SCAN DOC: ECG (01/17/2022 12:00 AM EST) Unknown MEDIA MGR SCAN EXT O RDR/RSLT documented in this encounter Visit Diagnoses Diagnosis Dyspnea, unspecified type documented in this encounter Care Teams Food Cooking Machine Operator Relationship Specialty Start Date End Date Natty Mckinney MD [address] [place] [address] PCP - General 10/11/10 documented as of this encounter
--- OUTSIDE RECORDS SUMMARY | 2024-05-30 01:14 | XMS_ITS | Encounter Summary ---
Author Organization [facility] [place] [address] Care Team Providers Care Tube Depatcher Name Role Phone Natty Mckinney MD Primary Care Provider [phone] Encounter Details Date Type Department Care Team (Late st Contact Info) Description 04/29/2020 Telephone Radiation Oncology at [address] [address] Arun Lyle Social History Tobacco [...] on filedocumented in this encounter Care Teams Tube Depatcher Relationship Specialty Start Date End Date Natty Mckinney MD [address] [place] [address] PCP - General 10/11/10 documented as of this encounter
--- OUTSIDE RECORDS SUMMARY | 2024-05-30 01:14 | XMS_ITS | Encounter Summary ---
Author Organization [facility] [place] [address] Care Team Providers Care Supervisor Refractory Products Name Role Phone Natty Mckinney MD Primary Care Provider [phone] Encounter Details Date Type Department Care Team (Late st Contact Info) Description 05/13/2020 Telephone Radiation Oncology at [address] [address] Arun Lyle Social History Tobacco [...] on filedocumented in this encounter Care Teams Supervisor Refractory Products Relationship Specialty Start Date End Date Natty Mckinney MD [address] [place] [address] PCP - General 10/11/10 documented as of this encounter
--- OUTSIDE RECORDS SUMMARY | 2024-05-30 01:14 | XMS_ITS | Encounter Summary ---
Author Organization [facility] Address [facility] [address] Care Team Providers Care Learning Services Coordinator Name Role Phone Natty Mckinney MD Primary Care Provider [phone] Reason for Referral * Consultation (Routine) - Closed Specialty Diagnoses / Procedures Referred By Claire guerrero Referred To Contact Radiation Oncology Diagnoses Malignant neoplasm of prostate Procedures Simulation for Radiation Therapy Planning Santiago Arroyo MD [address] [place] [address] [place] [address] [facility] Rad Onc Office [address] [place] [phone] Referral ID Status Reason Start Date Expiration Date V isits Requested Visits Authorized [id number] Closed Consult, Test & Treat 12/22/2019 12/21/2020 1 1 Reason for Visit * Consultation (Routine) - Closed Specialty Diagnoses / Procedures Referred By Claire guerrero Referred To Contact Radiation Oncology Diagnoses Malignant neoplasm of prostate Daniele Seals MD [facility] [place] [address] [facility] Rad Onc Treatment [address] [place] [phone] Referral ID Status Reason Start Date Expiration Date V isits Requested Visits Authorized [id number] Closed Consult, Test & Treat 12/03/2019 12/02/2020 1 1 Encounter Details Date Type Department Care Team (Late st Contact Info) Description 12/22/2019 9:00 AM EST Office Visit Radiation Oncology at [address] [place] [address] Santiago Arroyo MD [address] [place] [address] DR RADIATION ONCOLOGY [place], [place] [id number] Malignant neoplasm of prostate Social History Tobacco [...] Sign Reading Time Taken Comments Blood Pressure 113/69 12/22/2019 8:00 AM EST Pulse 73 12/22/2019 8:00 AM EST Temperature 36.7 ??C (98 ??F) 12/22/2019 8:00 AM EST Respiratory Rate 12 12/22/2019 8:00 AM EST Oxygen Saturation 100% 12/22/2019 8:00 AM EST Inhaled Oxygen Concentration - - Weight 69.4 kg (153 lb) 12/22/2019 8:00 AM EST Height - - Body Mass Index 20.75 09/08/2019 8:08 AM EDT documented in this encounter Patient Instructions * Patient Instructions* Santiago Arroyo MD - 12/22/2019 9:00 AM EST Dear Mr. Monte, Dr. Seals asked for me to see you to discuss how radiation therapy can be used to treat your prostate cancer and this note is to recap our discussion regarding use of radiation treatments. As your radiation oncologist, I work closely with your other healthcare providers and most importantly, withyou to make sure that the treatments we discuss and offer keep your personal preferences and goals in mind. We discussed the following next steps as part of your cancer evaluation and/or treatment: 1. The aggressiveness of your prostate cancer: You technically have low risk prostate cancer, which is a risk given to your cancer of coming back after treatment. This is based on three things 1. Your PSA (the blood test) was 7.2. PSA values below 10 are considered low risk and 10-20 are considered medium risk. 2. Your gibson score was 6 (this is how aggressive your prostate cancer looks under the microscope). Irwin scores for cancer range from 6-10, and 6 is considered lowest risk. 3. How aggressive your prostate cancer looked on the MRI. There is no evidence of cancer beyond theedge of your prostate. 2. Treatment Options for Low Risk prostate cancer: Overall, the decision to treat prostate cancer is based on both the risk that the cancer can kill you and your general overall health. There are several treatment options to consider, all with various advantages and disadvantages. A. One option is called 'active surveillance,' which means closely following your prostate cancer and treating it only if it becomes more aggressive. A typical active surveillance approach would involve repeated rectal exams (yearly) and PSA's (at least twice yearly), repeated biopsies (every 2 years or so, likely with an MRI). If the PSA begins to rise quickly, if the rectal exam shows a prostate nodule, or if the biopsies shows more aggressive disease, treatment would be offered and more strongly recommended than it is today. The benefit to this approach is that your prostate cancer may never become aggressive enough to shorten or even negatively impact your life. Avoiding treatment couldspare you the side effects (and hassle) of going through radiation or surgery. If you are uncertainabout proceeding with surveillance we could order a genetic test called Oncotype that gives us a score of 1-100 of how aggressive your prostate cancer seems to be. A lower score would be reassuringthat we can safely watch this cancer. This is usually (but not always) covered by insurance, and costs about $400. If you choose to proceed with surveillance, the next step would be for me to refer you to the Surveillance Clinic at [facility], which is run by our prostate cancer surgeons. B. External beam radiation or surgery: If you decline active surveillance and wish to pursue treatment, both radiation and surgery are excellent options with cure rates >90%. Our meeting here today is to review the external beam radiation option offered here. C. Radioactive seed implants (brachytherapy): While the form of radiation which we offer here involves shooting radiation into your prostate from the outside, another form of radiation involves placement of radioactive seeds into the prostate. However because of your prior rectal surgery this is not possible because we typically place an ultrasound probe into your rectum in order to see the prostate. D. SBRT (radiosurgery): This is a relatively new way to treat prostate cancer, which involves just 5 very high dose radiation treatments. It is still considered somewhat experimental since we do not have very long-term survival data for patients (much beyond 10 years). It seems to be effective and that is why there is currently a clinical trial testing this kind of radiation against standard radiation. I could consider treating you without signing up for the trial, since you are not eligible for the trial (due to your lack of a rectum). 3. Fiducial Marker implants: If you choose external beam radiation treatments, the first step is for you to visit radiology at [facility] again, where they could place small gold markers (called fiducials) into the prostate, which help us visualize the prostate on a daily basis prior to treating youwith radiation. These small gold seeds are about the size of a grain of rice, and will be placed into each side of the prostate. 4. Radiation Therapy and Planning: Radiation therapy involves using high energy radiation which kills cancer but also normal healthy tissues. In order to make sure the radiation goes to the canceroustissues and to also avoid radiating the normal tissues, we design radiation beams beams into special shapes which come from various different directions. Because no two people and no two cancers are completely identical, the radiation plan we create for you will be unique to you and your body. In order to figure out how many beams to use, how much radiation to give, which angles they should come from, and how they should be shaped, we have asked you to undergo 2 mapping scans: one is done here in our department known as a CT simulation, or CT sim, for short. This is essentially a CAT-scan similar to scans which you may have received before, but slightly different in a few ways: First, it allows us to place you in the exact same position which you should expect to be placed during each of your radiation treatment sessions. Second, it lets us better understand where the radiation targets and the normal tissues that we want to avoid exist, in relation to each other and the radiation beams. The second scan is a prostate MRI which we do at [facility], that allows us to better see your prostate. Following these scans, we then perform additional calculations and measurements to create the absolute best plan possible for you. Depending on the complexity of the plan, these processes can take from just few hours to several days, and for that we ask for your patience. If you have any questions about the planning process or your custom radiation plan, I would be more than happy to review the plan with you during your first week of treatment. I anticipate you would receive 28 treatments total, daily Sunday-Sunday for 5.5 weeks. Your start date and time would be provided once the simulation scan is completed. During your radiation treatments, you can expect to see me once per week so that I can examine you to make sure you are tolerating radiation treatments and so that we can monitor your response to treatment. 5. Short Term Toxicity (Side Effects) of Radiation: We discussed some common temporary side effectsthat you may experience during radiation. Common side effects may include irritative symptoms of the bladder or prostate, which can result in more frequent urination or defecation. Other common side effects mahy include weakened urinary stream or burning with urination. If you experience any of these, please let us know so that we can help to treat them. These typically resolve within 4-6 weeks of completion radiation. 6. Residential Complications: These are more worrisome and are due to permanent damage of the radiated tissues, including the rectum/bowel, bladder, prostate and surrounding tissues. Potential serious injury is rare, but can include poor wound healing, bleeding, or destruction of healthy tissue that may require surgery to repair and may result in a colostomy (bag for defecation) or urostomy (bag for urination). There may be a slow, terminal clerk decrease in your sexual function as well, which is partly due to the aging process but also partly due to radiation side effects. This is typically responsive to medications like Viagra. Finally, there is a risk that radiation to your prostate increases the chance of getting another cancer caused by radiation, possibly of the prostate, bladder, rectum or surrounding tissues. This risk is overall quite low (approximately 1% above your normal risk for each 10 years you are alive), but is something to be aware of. Please do not hesitate to call me at [phone] with any other questions or concerns you have. IfI am not here, one of our radiation oncology nurses can assist you or help you get in touch with me. A Radiation Oncology doctor is also conductor road freight after our normal hours and on weekends for urgent questions or concerns related to radiation treatments that can not wait until normal business hours. To reach the on-call doctor after-hours, just call and have the churn drill operator page the Radiation Oncologist conductor road freight. And, as always, if you experience any life-threatening emergencies which any include the following,you need to seek emergency care immediately by calling 911: 1. Sudden and unexpected breathing difficulty without any exertion 2. Sudden onset of chest pain 3. Sudden onset of severe pain or uncontrolled pain 4. Sudden onset of severe weakness and/or unable to walk 5. Sudden new onset of a seizure 6. Fall resulting in injury 7. Uncontrollable bleeding Santiago Barbosa MD Lumber Inspectorboring machine operator Radiation Oncology [facility] documented in this encounter Progress Notes * Santiago Arroyo MD - 12/22/2019 9:00 AM EST Images from the original note were not included. Radiation Oncology Prostate Cancer Consult Note Santiago Arroyo MD, MS [facility] [phone] PATIENT IDENTIFICATION: PATIENT NAME: Krishan Monte DATE OF : 1965 REFERRING PROVIDER: Daniele Seals MD [facility] [place] [address] REASON FOR CONSULTATION : Cancer Staging Malignant neoplasm of prostate Staging form: Prostate, AJCC 8th Edition - Clinical: Stage Unknown (cTX, cN0, cM0, PSA: 7.2, Grade Group: 1) - Signed by Santiago Arroyo MD on 12/16/2019 HISTORY OF PRESENT ILLNESS: Krishan Monte is a 54 y.o. male with history of Crohn's disease s/p colectomy recently diagnosed with a low-risk prostate cancer. He has had an ileostomy since 1988. Presenting Symptoms / Duration: Elevated PSA. Rectal exam not possible as patient is s/p APR. Prior consultations / recommendations: Dr Seals 10/14 phone note - concerned about as patient may be understaged given MRI findings, patient's age Tumor Board note: Recommendations: - Treatment > . - Options include extraperitoneal Robotic Prostatectomy vs. Open Prostatectomy vs. Radiation PSA History: 09/08/19: 6.38 06/19/19: 7.2 01/06/19: 5.4 08/15/16: 3.32 04/16/15: 3.8 04/18/13: 4.57 11/22/12: 4.69 Pathology Results / Location: CT guided biopsy 09/08/19: Gl 3+3 x 4/12 cores Pertinent Imaging Studies: mpMRI 09/23/19: - 29.2cc gland size - PI RADS-5, 3cm lesion RT mid/base PZ lesion - no LAD/OPAL Krishan is here today to discuss radiation therapy for treatment of his recently diagnosed prostate cancer. REVIEW OF SYSTEMS: REVIEW OF SYSTEMS 12/22/2019 Constitutional Weakness, Fatigue, lack of energy, Hot flashes, Pain Ear / nose / throat / mouth Dry mouth Eyes None of the above Respiratory None of the above Cardiovascular None of the above Gastrointestinal None of the above Skin, hair Sweats Musculoskeletal Joint pain Neurological Headaches, Muscular weakness Hematologic / Lymphatic None of the above Genitourinary Scrotal Pain, Pelvic Pain A comprehensive 14 point review of systems was conducted with this patient and is otherwise negative except as documented above. Baseline BALDEV and IPSS are as below: Prostate Scores and Responses 12/22/2019 Confidence, level - past 6 months Very High Penetration - past 6 months Almost always or always Penetration, maintain - past 6 months Almost always or always Erection, maintain - past 6 months Not difficult Sexual satisfaction - past 6 months Almost always or always Sexual Health in Men 25 Incomplete emptying Less than 1 time in 5 Frequency Not at all Intermittency Not at all Urgency Not at all Weak Stream Less than 1 time in 5 Straining Not at all Nocturia 1 time Quality of life Mostly satisfied Total IPSS Score 3 ( MILD LUTS) PAST MEDICAL HISTORY Past Medical History: Diagnosis Date ??? Cataract ??? Crohn disease diagnosed at age 10 yrs ??? Ileostomy in place 1989 Chrons disease Past Surgical History: Procedure Laterality Date ??? CATARACT REMOVAL WITH IMPLANT Bilateral ??? COLON SURGERY multiple surgeries for Crohn's disease. no large bowel. Has ileostomy ??? CT GUIDED BIOPSY OTHER 10/08/2019 CT Guided Biopsy Other 10/08/2019 [facility] RAD CAT SCAN CONTRAINDICATIONS TO RADIATION THERAPY: None ?? Prior radiation therapy: No ?? Active Lupus: No ?? Systemic Scleroderma: No MEDICATIONS / ALLERGIES: Medications 12/22/19 0912 Medication Sig Taking? VENTOLIN HFA 90 mcg/actuation HFA Aerosol Inhaler inhale 1 to 2 puffs by mouth every 4 hours if needed for shortness of breath wheezing cough Yes HYDROcodone-acetaminophen (NORCO) 10-325 mg Tablet TK 2 TS PO TID WITH AN ADDITIONAL TABLET AT DINNER NEEDED Yes methadone (DOLOPHINE) 10 mg Tablet TK 1 T PO TID Yes diphenoxylate-atropine (LOMOTIL) 2.5-0.025 mg per tablet 4 Tablet(s), PO, Three times daily Yes sulfamethoxazole-trimethoprim DS (Bactrim DS) 800-160 mg Tablet daily. ondansetron ODT (Zofran-ODT) 4 mg Tablet, Rapid Dissolve every [address] DULoxetine DR (Cymbalta) 30 mg Capsule, Delayed Release(E.C.) daily. 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 Prostate Cancer Father ??? Lung Cancer Maternal Aunt ??? Cancer Paternal Grandfather PHYSICAL EXAM BP 113/69 Pulse 73 Temp 36.7 ??C (98 ??F) Resp 12 Wt 69.4 kg (153 lb) SpO2 100% BMI 20.75 kg/m?? General: alert, well appearing, and in no distress sitting in exam room with a friend at side RACHAEL: surgically absent anus - exam not possible TODAY'S PERFORMANCE STATUS: KPS Score ECOG Grade Definition 90-100 0 [...] selfcare; totally confined to bed or chair ASSESSMENT / PLAN: Krishan Monte is a 54 y.o. man diagnosed with likely low-risk prostate cancer (cTx, PSA 7.2, Gl 6). MRI did not show evidence of SV invasion, OPAL, or lymphadenopathy. Today we reviewed the risks, benefits, rationale, implications and alternatives of the various management options. Fortunately he was well informed regarding these options, especially the surgical approach by Dr. Seals, so we spent the remainder of the discussion focusing on radiation therapy. Briefly, though, we reviewed his three major options, which include radical prostatectomy, radiation therapy, and active surveillance with delayed curative intent. We reviewed that in general treatment efficacy is similar between radiation therapy and surgery, but have varying logistic concerns and side effects. With regard to his radiation options, we reviewed both external beam and brachytherapy. Given that he has no rectum, brachytherapy is technically not possible given the need for rectal ultrasound forguidance. SBRT was discussed as a potential treatment option but with the caveat that side effects (especially urinary side effects) may be higher. His low IPSS and prostate size would suggest that he is an appropriate candidate for this modality. In the short term, I reviewed the common irritative bladder side effects associated with all forms of radiotherapy. Bowel side effects are unlikely given the surgical absence of his rectum. In the terminal clerk, I explained there is an approximately 2% chance of serious bladder toxicity as well as a very low risk of inducing a secondary malignancy. I also reviewed that with radiation there are few reliable salvage curative options. Logistics of external beam treatment were also reviewed, including the role of CT guided fiducial marker placement, simulation, and treatment. Clinical trials were also reviewed briefly. He is not a candidate for any currently open trials at [facility] given his surgically absence rectum. On balance, Krishan wishes to proceed with SBRT. Follow-up appointments for CT guided fiducial marker placement will be made accordingly. Informed consent for simulation and radiotherapy were obtainedtoday in clinic. All of his questions were answered to his satisfaction, and we have provided him with our contact information should any further questions or concerns arise. SUMMARY OF PLAN / RECOMMENDATION: 1. Intent of therapy: Curative 2. Clinical Trial Availability: No 3. Informed consent obtained for SBRT to the prostate, anticipate 5 fractions to be delivered in [facility]. 4. Fiducial maker placement, CT simulation to be scheduled TIME ATTESTATION: At least 45 minutes of this 60 minute visit was spent with the patient [id number] reviewing his interval medical history and answering questions related to his prostate cancer. SANTIAGO ARROYO MD, MS * Tamara Boone RN - 12/22/2019 9:00 AM EST RADIATION ONCOLOGY NURSING INITIAL NURSING ASSESSMENT IDENTIFICATION: Krishan Monte is a 54 y.o. year-old male with prostate ca PRESENTING SYMPTOMS/CHIEF COMPLAINT: REVIEW OF SYSTEMS: Review of Systems - Oncology REVIEW OF SYSTEMS 12/22/2019 Constitutional Weakness, Fatigue, lack of energy, Hot flashes, Pain Ear / nose / throat / mouth Dry mouth Eyes None of the above Respiratory None of the above Cardiovascular None of the above Gastrointestinal None of the above Skin, hair Sweats Musculoskeletal Joint pain Neurological Headaches, Muscular weakness Hematologic / Lymphatic None of the above Genitourinary Scrotal Pain, Pelvic Pain Occasional has scrotal pain. Can get up to 7/10 IN THE PAST 12 MONTHS HAVE YOU: Fallen more than one time? No Injured yourself as result of the fall? No Experienced difficulty with walking/problems with balance? No Do you use any assistive devices? No Any history of collagen vascular diseases:No Any Implanted Devices/Hardware: Yes perhaps some surgical mesh in abd If yes please put alert in ARIA patient summary Prior Radiotherapy: No Prior Chemotherapy: No Prior Hormone Therapy: No Other: Patient denies history of sclera derma and Lupus LEARNING ASSESSMENT REVIEWED: Yes ADVANCED DIRECTIVE: Not discussed today. PAIN ASSESSMENT: [7] out of 10 *eD-H Adult PCS Flow Sheet if 4 or above Left lower pelvis, chronic SOCIAL ASSESSMENT: On disability since 2002 . 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 See [facility] social assessment information entered. Support Systems: Lives alone. Accompanied by friend, Nancy Barriers to treatment: none Referrals/Interventions: life skills worker on day per routine. RADIATION SPECIFIC TEACHING Will provide the following information on simulation day [facility] and You Site specific teaching : Other: PLAN: Per Dr Arroyo's note documented in this encounter Plan of Treatment Scheduled Orders Name Type Priority Associated Diagnoses Orde r Schedule Simulation for Radiation Therapy Planning Procedures Routine Malignant neoplasm of prostate Ordered: 12/22/2019 documented as of this encounter Visit Diagnoses Diagnosis Malignant neoplasm of prostate documented in this encounter Care Teams Learning Services Coordinator Relationship Specialty Start Date End Date Natty Mckinney MD [address] [place] [address] PCP - General 10/11/10 documented as of this encounter
--- OUTSIDE RECORDS SUMMARY | 2024-05-30 01:14 | XMS_ITS | Encounter Summary ---
Author Organization [facility] [place] [address] Care Team Providers Care Sleep Scientist Name Role Phone Natty Mckinney MD Primary Care Provider [phone] Encounter Details Date Type Department Care Team (Late st Contact Info) Description 04/06/2021 Telephone Radiation Oncology at [address] [phone] Shweta Hendrix SMALL BUSINESS DIRECTOR [address] [place] [address] DR RADIATION ONCOLOGY [place], [place] [id number] Social History Tobacco Use Types Packs/Day Years [...] encounter Miscellaneous Notes * Telephone Encounter - Shweta Hendrix APRN - 04/07/2021 9:38 AM EDT Call to Dr Lopes patient's PCP to review the results of patient's recent bone scan and the secondread done by [facility]. She is appreciative of the results. I informed her that patient has been notified. FINDINGS: No suspicious osseous lesions. Right knee [...] Hayden MD at 04/06/2021 4:58 PM ?? * Telephone Encounter - Shweta Hendrix APRN - 04/06/2021 5:27 PM EDT Secon read was done of recent [place] bone scan. This does not show any evidence of metastasis. There are some mild degenerative changes in his lower spine. Call was made to patient to review those findings and Dr Mckinney will also be called documented in this encounter Plan of Treatment Not on file documented as of this encounter Visit Diagnoses Not on filedocumented in this encounter Care Teams Sleep Scientist Relationship Specialty Start Date End Date Natty Mckinney MD [address] [place] [address] PCP - General 10/11/10 documented as of this encounter
--- OUTSIDE RECORDS SUMMARY | 2024-05-30 01:14 | XMS_ITS | Encounter Summary ---
Author Organization [facility] [place] [address] Care Team Providers Care Crop Puller Name Role Phone Natty Mckinney MD Primary Care Provider [phone] Encounter Details Date Type Department Care Team (Late st Contact Info) Description 02/03/2021 Ancillary Procedure [place] [address] Natty Lawton APRN [facility] [address] [place] [address] Social History Tobacco Use Types Packs/Day Years [...] STORAGE ONLY CT ABDOMEN AND PELVIS Routine 02/03/2021 12:00 AM EDT documented in this encounter Results * Film Library- Storage Only CT Abdomen & Pelvis (02/03/2021 12:00 AM EDT) Narrative [facility] - 10/11/2022 1:58 PM EST This exam is auto-finalizing. It's purpose is for storage only. Natty Lawton APRN IMG FILM LIBRARY ORD ERABLES [facility] [place] documented in this encounter Visit Diagnoses Not on filedocumented in this encounter Care Teams Crop Puller Relationship Specialty Start Date End Date Natty Mckinney MD [address] [place] [address] PCP - General 10/11/10 documented as of this encounter
--- OUTSIDE RECORDS SUMMARY | 2024-05-30 01:14 | XMS_ITS | Encounter Summary ---
Author Organization [facility] [place] [address] Care Team Providers Care Arborist Climber Name Role Phone Natty Mckinney MD Primary Care Provider [phone] Encounter Details Date Type Department Care Team (Late st Contact Info) Description 03/16/2020 Telephone Radiation Oncology at [address] [address] Arun Lyle Social History Tobacco [...] encounter Miscellaneous Notes * Telephone Encounter - Arun Lyle - 03/16/2020 12:08 PM EDT LM for pt with the screening questions for COVID-19. I asked the pt to call us with his answers. documented in this encounter Plan of Treatment Not on file documented as of this encounter Visit Diagnoses Not on filedocumented in this encounter Care Teams Arborist Climber Relationship Specialty Start Date End Date Natty Mckinney MD [address] [place] [address] PCP - General 10/11/10 documented as of this encounter
--- OUTSIDE RECORDS SUMMARY | 2024-05-30 01:14 | XMS_ITS | Encounter Summary ---
Author Organization [facility] [place] [address] Care Team Providers Care Jeep Mechanic Name Role Phone Natty Mckinney MD Primary Care Provider [phone] Encounter Details Date Type Department Care Team (Late st Contact Info) Description 05/06/2020 Telephone Radiation Oncology at [address] [address] Tamara Boone RN Social History [...] AM EDT Radiation Oncology Nurse Telephone Note [facility] [place], [place] ----- Message from Santiago Arroyo MD sent at 05/06/2020 9:36 AM EDT ----- Please also call Krishan to let him know to start taking Flomax twice daily along with all his othermeds. I forgot to mention this to him. [...] on filedocumented in this encounter Care Teams Jeep Mechanic Relationship Specialty Start Date End Date Natty Mckinney MD [address] [place] [address] PCP - General 10/11/10 documented as of this encounter
--- OUTSIDE RECORDS SUMMARY | 2024-05-30 01:14 | XMS_ITS | Encounter Summary ---
Author Organization [facility] [place] [address] Care Team Providers Care Machine Puller Name Role Phone Natty Mckinney MD Primary Care Provider [phone] Encounter Details Date Type Department Care Team (Latest Contact Info) Description 03/19/2020 11:15 AM EDT Procedure visit Radiation Oncology at [address] [address] Martínez Johnson MD [facility] [place] [address] Malignant neoplasm of prostate Social History Tobacco [...] EDT Temperature 36.1 ??C (97 ??F) 03/19/2020 11: 10 AM EDT Respiratory Rate 16 03/19/2020 11:1 0 AM EDT Oxygen Saturation 100% 03/19/2020 11: 10 AM EDT Inhaled Oxygen Concentration - - Weight 70.7 kg (155 lb 12.8 oz) 020 11:10 AM EDT Height - - Body Mass Index 21.13 09/08/2019 8:08 AM EDT documented in this encounter Progress Notes * Martínez Johnson MD - 03/19/2020 11:15 AM EDT Radiation Oncology visit note PATIENT IDENTIFICATION Diagnosis Cancer Staging Malignant neoplasm of prostate Staging form: Prostate, AJCC 8th Edition - Clinical: Stage Unknown (cTX, cN0, cM0, PSA: 7.2, Grade Group: 1) - Signed by Santiago Arroyo MD on 12/16/2019 INTENT OF THERAPY: Definitive (Curative) RADIATION [...] upon arrival to clinic by Edwige Vargas LABOR EMPLOYMENT ASSOCIATE Resp 16 Wt 70.7 kg (155 lb [...] prostate documented in this encounter Care Teams Machine Puller Relationship Specialty Start Date End Date Natty Mckinney MD [address] [place] [address] PCP - General 10/11/10 documented as of this encounter
--- OUTSIDE RECORDS SUMMARY | 2024-05-30 01:14 | XMS_ITS | Encounter Summary ---
Author Organization [facility] [place] [address] Care Team Providers Care Water Taxi Operator Name Role Phone Natty Mckinney MD Primary Care Provider [phone] Reason for Visit * Reason Comments Prostate Cancer Encounter Details Date Type Department Care Team (Late st Contact Info) Description 02/09/2021 1:45 PM EDT TH Visit (TeleHealth) Radiation Oncology at [address] [phone] Shweta Hendrix APRN [address] [place] [address] RADIATION ONCOLOGY [place] [id number] Malignant neoplasm of prostate Social History Tobacco [...] as of this encounter Progress Notes * Shweta Hendrix APRN - 02/09/2021 1:45 PM EDT Telephone/TeleHealth Encounter Two attempts were made to reach patient and there was no answer. Message was left for patient to call [facility] to reschedule documented in this encounter Plan of Treatment Not on file documented as of this encounter Visit Diagnoses Diagnosis Malignant neoplasm of prostate documented in this encounter Care Teams Water Taxi Operator Relationship Specialty Start Date End Date Natty Mckinney MD [address] [place] [address] PCP - General 10/11/10 documented as of this encounter
--- OUTSIDE RECORDS SUMMARY | 2024-05-30 01:14 | XMS_ITS | Encounter Summary ---
Author Organization [facility] Address [facility] [place] [address] Care Team Providers Care Computer Help Desk Specialist Name Role Phone Natty Mckinney MD Primary Care Provider [phone] Encounter Details Date Type Department Care Team (Late st Contact Info) Description 10/14/2019 [place] [address] Daniele Seals MD [facility] [place] [address] Social History Tobacco Use Types Packs/Day Years Used Date Smoking Tobacco: Never Assessed Sex and Gender Information Value Date Recorded Sex Assigned at Not on file Gender Identity Not on file Sexual Orientation Not on file documented as of this encounter Progress Notes * Daniele Seals MD - 10/14/2019 5:28 PM EST I called to review CT guided biopsy results that found only Angela 3+3 disease. I discussed my concerns of understaging based on his MRI as well as my concerns for surveillance considering prior APRand young age. I will plan to review with our tumor board and make will call with recs. documented in this encounter Plan of Treatment Not on file documented as of this encounter Visit Diagnoses Not on filedocumented in this encounter Care Teams Computer Help Desk Specialist Relationship Specialty Start Date End Date Natty Mckinney MD [address] [place], [place] [address] PCP - General 10/11/10 documented as of this encounter
--- OUTSIDE RECORDS SUMMARY | 2024-05-30 01:14 | XMS_ITS | Encounter Summary ---
Author Organization [facility] [place] [address] Care Team Providers Care Submarine Advisory Team Watch Officer Name Role Phone Natty Mckinney MD Primary Care Provider [phone] Encounter Details Date Type Department Care Team (Latest Contact Info) Description 10/08/2019 7:05 AM EST Laboratory Appointment Lab [address] [place] [phone] Stomach ache; Epidemic vomiting syndrome; Ileostomy status Social History Tobacco Use Types Packs/Day Years Used Date Smoking Tobacco: Never Assessed Sex and Gender Information Value Date Recorded Sex Assigned at Not on file Gender Identity Not on file Sexual Orientation Not on file documented as of this encounter Plan of Treatment Not on file documented as of this encounter Procedures Procedure Name Priority Date/Time Associated Diagnosis Comments TSH CASCADE Routine 10/08/2019 7:14 AM EST HEMOGRAM Routine 10/08/2019 7:14 AM EST Stomach ache Epidemic vomiting syndrome Ileostomy status DIFFERENTIAL, AUTOMATED Routine 10/08/2019 7:14 AM EST Stomach ache Epidemic vomiting syndrome Ileostomy status HC VENIPUNCTURE Routine 10/08/2019 7:14 AM EST Stomach ache Epidemic vomiting syndrome Ileostomy status HC PCH VITAMIN A Routine 10/08/2019 7:14 AM EST Stomach ache Epidemic vomiting syndrome Ileostomy status HC ESR-SEDIMENTATION RATE, BLOOD Routine 10/08/2019 7:14 AM EST Stomach ache [facility]emic vomiting [facility] CBC,PLT & AUTO DIFF Routine 9 7:14 AM EST Stomach ache Epidemic vomiting syndrome Ileostomy status HC MAGNESIUM, SERUM Routine 10/08/2019 7 :14 AM EST Stomach ache Epidemic vomiting syndrome Ileostomy status HC CREATINE PHOSPHOKINASE, SERUM Routine 10/08/2019 7:14 AM EST Stomach ache Epidemic vomiting syndrome Ileostomy status COMPREHENSIVE METABOLIC PANEL (NON-FASTING) Routine 10/08/2019 7:14 AM EST documented in this encounter Results * TSH [place] (10/08/2019 7:14 AM EST) TSH 1.94 0.27 - 4.20 mcIU/mL [facility] Blood specimen (specimen) Venous Draw / Unknown 10/08/2019 7:14 AM EST 10/08/2019 7:27 AM EST Narrative Resulting Agency Comment Spec In Lab Natty Mckinney MD CHEMISTRY ORDERABLES [facility] [place] [place] [address] * Comprehensive metabolic panel (non-fasting) (10/08/2019 7:14 AM EST) Glucose Lvl 95 65 - 199 mg/dL [facility] Comment:Diabetes: >=200 mg/d L plus symptoms BUN 16 10 - 20 mg/dL [facility] Creatinine 0.93 0.80 - 1.50 mg/dL [facility] Sodium 138 135 - 145 mmol/L [facility] Potassium 4.6 3.5 - 5.0 mmol/L [facility] Comment: Please note: ??Patients with WBC >100,000 may have falsely elevated Potassium levels. ??For accurate Potassium quantification in these patients send serum separator tube (gold top) for subsequent determinations. ??Contact the Clinical Chemistry Laboratory if there are any questions. Chloride 104 98 - 107 mmol/L [facility] CO2 23 22 - 31 mmol/L [facility] Anion Gap 11 5 - 15 mmol/L [facility] Calcium 9.4 8.5 - 10.5 mg/dL [facility] Total Protein 6.7 6.1 - 8.0 gm/dL [facility] Albumin 4.4 3.2 - 5.2 gm/dL [facility] AST 21 0 - 39 unit/L [facility] ALT 33 0 - 55 unit/L [facility] Alk Phos 97 40 - 130 unit/L [facility] Total Bilirubin 0.6 0.2 - 1.3 mg/dL [facility] Estimated GFR 92 >=60 mL/min/1. 73 m?? [facility] Comment: The eGFR was calculated using the CKD-EPI equation. As with all creatinine based estimates of kidney function, eGFR values calculated with the CKD-EPI equation are not accurate in patients with acute kidney failure, extremes of body mass or the acutely ill. http://[place]/DHMCnkf eGFR 107 >=60 mL/min/1. 73 m?? [facility] Comment: The eGFR was calculated using the CKD-EPI equation. As with all creatinine based estimates of kidney function, eGFR values calculated with the CKD-EPI equation are not accurate in patients with acute kidney failure, extremes of body mass or the acutely ill. http://[place]/DHnkf Blood specimen (specimen) Venous Draw / Unknown 10/08/2019 7:14 AM EST 10/08/2019 7:27 AM EST Narrative Resulting Agency Comment Spec In Lab Natty Mckinney MD CHEMISTRY ORDERABLES [facility] [place] [place] [address] * (ABNORMAL) Differential, Automated (10/08/2019 7:14 AM EST) Neutrophils % 80.5 % [facility] Neutr Abs (ANC) 9.70(H) 1.70 - 6.10 x10(3)/[facility] Lymphocytes % 10.9 % [facility] Lymphocytes Abs 1.3 0.9 - 3.2 x10(3)/[facility] Monocytes % 5.8 % [facility] Monocyte Abs 0.7 0.3 - 0.9 x10(3)/[facility] Eosinophils % 0.7 % [facility] Eosinophils Abs 0.1 0.0 - 0.4 x10(3)/[facility] Basophils % 0.4 % [facility] Basophils Abs 0.0 0.0 - 0.1 x10(3)/[facility] Immature Gran % 1.70 % [facility] Comment: Immature granulocytes(IG's)percentage and absolute count will include metamyelocytes, myelocytes, and promyelocytes. Blood smears from CBCs yielding IG's will be scanned manually for concordance. If this scan disagrees with the automated IG or if promyelocytes are noted, a manual differential will be performed. Marisol Gran Abs 0.21(H) 0.00 - 0.04 x10(3)/[facility] Blood specimen (specimen) 10/08/2019 7:14 AM EST 10/08/2019 7:27 AM EST Narrative Resulting Agency Comment Spec In Lab Natty Mckinney MD HEMATOLOGY ORDERABLE S [facility] [place] [place] [address] * (ABNORMAL) Hemogram (10/08/2019 7:14 AM EST) WBC 12.1(H) 4.0 - 9.5 x10(3)/[facility] RBC 4.53(L) 4.58 - 5.54 x10(6)/[facility] Hemoglobin 14.2 13.7 - 16.5 gm/dL [facility] Hematocrit 43.8 40.5 - 48.5 % [facility] MCV 96.7(H) 82.9 - 93.1 [facility] MCH 31.3 27.5 - 32.1 pg [facility] MCHC 32.4 32.0 - 35.7 gm/dL [facility] Platelets 221 145 - 357 x10(3)/[facility] RDWSD 46.5(H) 36.0 - 45.0 [facility] RDWCV 13.1 11.4 - 13.8 % [facility] MPV 10.6 7.6 - 12.[address] [facility] [place] [place] nRBC % Auto 0.0 % [facility] nRBC Abs Auto 0.000 0.000 - 0.000 x10(3)/[facility] Blood specimen (specimen) 10/08/2019 7:14 AM EST 10/08/2019 7:27 AM EST Narrative Resulting Agency Comment Spec In Lab Natty Mckinney MD HEMATOLOGY ORDERABLE S [facility] [place] [address] * (ABNORMAL) Vitamin A (10/08/2019 7:14 AM EST) Pathologist [facility] Vitamin A 87.6(H) 32.5 - 78.0 mcg/dL [facility] Comment: ADDITIONAL INFORMATION This test was developed and its performance characteristics determined by [facility] in a manner consistent with CLIA requirements. This test has not been cleared or approved by the U.S. Food and Drug Administration. Test Performed by: [facility] [address] [address] Commercial Green Building Architect: Valente Romero M.D. Ph.D.; [facility]# [id number] Blood specimen (specimen) 10/08/2019 7:14 AM EST 10/08/2019 10:36 AM EST Narrative Resulting Agency Comment Spec In Lab Natty Mckinney MD CHEMISTRY ORDERABLES Performing Organization Address [facility] de Phone Number [facility] [place] [address] * Magnesium (10/08/2019 7:14 AM EST) Magnesium 0.87 0.69 - 1.07 mmol/L [facility] Blood specimen (specimen) 10/08/2019 7:14 AM EST 10/08/2019 7:27 AM EST Narrative Resulting Agency Comment Spec In Lab Natty Mckinney MD CHEMISTRY ORDERABLES Performing Organization Address [facility] de Phone Number [facility] [place] [address] * CK (10/08/2019 7:14 AM EST) CK, Total 59 0 - 200 unit/L [facility] Blood specimen (specimen) 10/08/2019 7:14 AM EST 10/08/2019 7:27 AM EST Narrative Resulting Agency Comment Spec In Lab Natty Mckinney MD CHEMISTRY ORDERABLES Performing Organization Address [facility] Co de Phone Number [facility] [place] [address] * Sedimentation rate (10/08/2019 7:14 AM EST) Sed Rate 5 0 - 15 mm/hr [facility] Blood specimen (specimen) 10/08/2019 7:14 AM EST 10/08/2019 7:27 AM EST Narrative Resulting Agency Comment Spec In Lab Natty Mckinney MD HEMATOLOGY ORDERABLE S Performing Organization Address City/[facility]/ZIP Co de Phone Number [facility] [place] [address] * Vitamin B1, whole blood (10/08/2019 7:14 AM EST) Vit B1 Lvl WB 177 70 - 180 nmol/L [facility] Comment: ADDITIONAL INFORMATION This test was developed and its performance characteristics determined by [facility] in a manner consistent with CLIA requirements. This test has not been cleared or approved by the U.S. Food and Drug Administration. Test Performed by: [place] [address] Commercial Green Building Architect: Valente Romero M.D. Ph.D.; CLIA# [id number] Blood specimen (specimen) 10/08/2019 7:14 AM EST 10/08/2019 8:35 AM EST Narrative Resulting Agency Comment Spec In Lab Natty Mckinney MD CHEMISTRY ORDERABLES Performing Organization Address City/[facility]/ZIP Co de Phone Number [facility] [place] [address] documented in this encounter Visit Diagnoses Diagnosis Stomach ache Dyspepsia and other specified disorders of function of stomach Epidemic vomiting syndrome Ileostomy status documented in this encounter Care Teams Submarine Advisory Team Watch Officer Relationship Specialty Start Date End Date Natty Mckinney MD [address] [place] [address] PCP - General 10/11/10 documented as of this encounter
--- OUTSIDE RECORDS SUMMARY | 2024-05-30 01:14 | XMS_ITS | Encounter Summary ---
Author Organization [facility] Address [facility] [place] [address] Care Team Providers Care Senior Automation Engineer Name Role Phone Natty Mckinney MD Primary Care Provider [phone] Reason for Referral * Consultation (Routine) - Closed Specialty Diagnoses / Procedures Referred By Claire guerrero Referred To Contact Orthopaedics Diagnoses Osteoarthritis of carpometacarpal (CMC) joint of thumb, unspecified laterality, unspecified osteoarthritis type Ulnar abutment syndrome of both wrists Ector Irizarry MD [address] [place] [address] Willie Rivas MD [facility] [place] [address] Referral ID Status Reason Start Date Expiration Date V isits Requested Visits Authorized [id number] Closed Consult, Test & Treat PCP Updated and/or Approved 02/08/2022 02/08/2023 6 6 Encounter Details Date Type Department Care Team (Latest Contact Info) Description 02/08/2022 Transcribe Orders eDH Incoming Referrals [phone] Ector Irizarry MD [address] [place], [place] [id number] Osteoarthritis of carpometacarpal (CMC) joint of thumb, unspecified laterality, unspecified osteoarthritis type; Ulnar abutment syndrome of both wrists Social History Tobacco Use Types Packs/Day Years [...] Associated Diagnoses Orde r Schedule Referral to Orthopaedics Outpatient Referral Routine Osteoarthritis of carpometacarpal (CMC) joint of thumb, unspecified laterality, unspecified osteoarthritis type Ulnar abutment syndrome of both wrists Ordered: 02/08/2022 documented as of this encounter Visit Diagnoses Diagnosis Osteoarthritis of carpometacarpal (CMC) joint of thumb, unspecified laterality, unspecified osteoarthritis type Ulnar abutment syndrome of both wrists documented in this encounter Care Teams Senior Automation Engineer Relationship Specialty Start Date End Date Natty Mckinney MD [address] [place] [id number] PCP - General 10/11/10 documented as of this encounter
--- OUTSIDE RECORDS SUMMARY | 2024-05-30 01:14 | XMS_ITS | Encounter Summary ---
Author Organization [facility] [place] [address] Care Team Providers Care It Program Engagement Director Name Role Phone Natty Mckinney MD Primary Care Provider [phone] Encounter Details Date Type Department Care Team (Late st Contact Info) Description 01/02/2020 Telephone Radiation Oncology at [address] [address] Arun Lyle Social History Tobacco [...] filedocumented in this encounter Care Teams It Program Engagement Director Relationship Specialty Start Date End Date Natty Mckinney MD [address] [place] [address] PCP - General 10/11/10 documented as of this encounter
--- OUTSIDE RECORDS SUMMARY | 2024-05-30 01:14 | XMS_ITS | Encounter Summary ---
Author Organization [facility] [place] [address] Care Team Providers Care Landscape Architect Name Role Phone Natty Mckinney MD Primary Care Provider [phone] Encounter Details Date Type Department Care Team (Late st Contact Info) Description 03/07/2020 Telephone Hematology/Oncology at [address] [address] Miriam Pitts Social History Tobacco Use Types Packs/Day Years [...] encounter Miscellaneous Notes * Telephone Encounter - Miriam Pitts - 03/07/2020 5:22 PM EDT Called Krishan to inform him of the following: As a new precaution with COVID-19 we are calling all patients before they come in for their appointment to screen for any potential symptoms. 1. EXPOSURE: ???Have you been in contact with anyone suspected or confirmed to have COVID-19 in thepast 14 days??? No 2. Do you have a fever, cough, or shortness of breath? No [if they say yes to symptoms but no to exposure OR yes to symptoms and yes to exposure include the following and route to triage] I am going to forward this information on to our triage nurse. Someone should be calling you about next steps in regards to your appointment. Another precaution we are taking is that we are not allowing visitors at this time. If needed, someone may bring you to your appointment but they will be asked to wait outside. If you develop symptoms of shortness of breath, cough, or fever prior to your appointment do not come in for your appointment. Please call the Cancer Center before coming in. documented in this encounter Plan of Treatment Not on file documented as of this encounter Visit Diagnoses Not on filedocumented in this encounter Care Teams Landscape Architect Relationship Specialty Start Date End Date Natty Mckinney MD [address] [place] [address] PCP - General 10/11/10 documented as of this encounter
--- OUTSIDE RECORDS SUMMARY | 2024-05-30 01:14 | XMS_ITS | Encounter Summary ---
Author Organization [facility] [place] [address] Care Team Providers Care Merchandise Supervisor Name Role Phone Natty Mckinney MD Primary Care Provider [phone] Encounter Details Date Type Department Care Team (Late st Contact Info) Description 03/14/2020 Telephone Radiation Oncology at [address] [phone] Arun Lyle Social History Tobacco [...] * Telephone Encounter - Arun Lyle - 03/14/2020 [...] on filedocumented in this encounter Care Teams Merchandise Supervisor Relationship Specialty Start Date End Date Natty Mckinney MD [address] [place] [address] PCP - General 10/11/10 documented as of this encounter
--- OUTSIDE RECORDS SUMMARY | 2024-05-30 01:14 | XMS_ITS | Encounter Summary ---
Author Organization [facility] [place] [address] Care Team Providers Care Psychometric Examiner Name Role Phone Natty Mckinney MD Primary Care Provider [phone] Reason for Visit * Reason Onset Date Comments Prior Authorization 03/24/2021 Encounter Details Date Type Department Care Team (Late st Contact Info) Description 03/24/2021 Telephone H[place] [phone] Shantell Schmitt Prior Authorization Social History Tobacco Use Types Packs/Day Years [...] encounter Miscellaneous Notes * Telephone Encounter - Shantell Munoz - 03/24/2021 1:45 PM EDT PA: CPT 62723 Submitted verbally to [facility] [phone] Case:#[id number] Approved Auth#: [id number] Valid: 03/24/21-05/08/21 documented in this encounter Plan of Treatment Not on file documented as of this encounter Visit Diagnoses Not on filedocumented in this encounter Care Teams Psychometric Examiner Relationship Specialty Start Date End Date Natty Mckinney MD [address] [place] [address] PCP - General 10/11/10 documented as of this encounter
--- OUTSIDE RECORDS SUMMARY | 2024-05-30 01:14 | XMS_ITS | Encounter Summary ---
Author Organization [facility] [place] [address] Care Team Providers Care Instructor Painting Name Role Phone Natty Mckinney MD Primary Care Provider [phone] Encounter Details Date Type Department Care Team (Late st Contact Info) Description 12/03/2019 Telephone Radiation Oncology at [address] [phone] Melvi Wise Social History Tobacco Use Types Packs/Day Years Used Date Smoking Tobacco: Never Assessed Sex and Gender Information Value Date Recorded Sex Assigned at Not on file Gender Identity Not on file Sexual Orientation Not on file documented as of this encounter Miscellaneous Notes * Telephone Encounter - Melvi Wise - 12/03/2019 [...] on filedocumented in this encounter Care Teams Instructor Painting Relationship Specialty Start Date End Date Natty Mckinney MD [address] [place] [address] PCP - General 10/11/10 documented as of this encounter
--- OUTSIDE RECORDS SUMMARY | 2024-05-30 01:14 | XMS_ITS | Encounter Summary ---
Author Organization [facility] [place] [address] Care Team Providers Care Application Development Team Lead Name Role Phone Natty Mckinney MD Primary Care Provider [phone] Encounter Details Date Type Department Care Team (Late st Contact Info) Description 2020 11:30 AM EDT TH Visit (TeleHealth) Radiation Oncology at [address] [phone] Santiago Arroyo MD [address] [place] [address] RADIATION ONCOLOGY [place], [place] [id number] Malignant neoplasm of prostate Social History Tobacco [...] as of this encounter Progress Notes * Santiago Arroyo MD - 2020 11:30 AM EDT Images from the original note were not included. ? RADIATION ONCOLOGY - Phone Note ? Santiago Arroyo MD, MS Radiation Oncology ?? [facility] [phone] (paging cylinder press operator helper) Pager #[phone] ?? PATIENT IDENTIFICATION ? Name Krishan Monte Date of 1965 ? PCP Natty Mckinney MD Referring MD (if different) Dr. Seals ? Diagnosis Cancer Staging Malignant neoplasm of prostate Staging form: Prostate, AJCC 8th Edition - Clinical: Stage Unknown (cTX, cN0, cM0, PSA: 7.2, Grade Group: 1) - Signed by Santiago Arroyo MD on 12/16/2019 ?? Krishan Monte??is a 54 y.o.??man [...] Start Date End Date 03/10/20 03/19/20 ?? RN POSTPARTUM TREATMENT MANCILLA: ?? INTERVAL HISTORY Subjective: General - Overall continues to feel better. - Dysuria / frequency continue to improve. There was some confusion regarding his decadron taper. He took some prednisone instead of decadron and felt extremely tired as result. He has since resumed decadron taper now down to 8mg daily with ongoing continued improvement in both pelvic discomfortand LUTS. He verbalized an understanding of taper [...] ADM 1 ML IM Q MONTH DULoxetine (Cymbalta) 60 mg Capsule, Delayed Release(E.C.) daily. [...] treatment, so this encounter constitutes a no-charge globalvisit. CC Dr Mckinney PCP documented in this encounter Plan of Treatment Not on file documented as of this encounter Visit Diagnoses Diagnosis Malignant neoplasm of prostate documented in this encounter Care Teams Application Development Team Lead Relationship Specialty Start Date End Date Natty Mckinney MD [address] [place] [address] PCP - General 10/11/10 documented as of this encounter
--- OUTSIDE RECORDS SUMMARY | 2024-05-30 01:14 | XMS_ITS | Encounter Summary ---
Author Organization [facility] [place] [address] Care Team Providers Care Battery Checker Name Role Phone Natty Mckinney MD Primary Care Provider [phone] Encounter Details Date Type Department Care Team (Late st Contact Info) Description 03/17/2020 2:15 PM EDT Procedure visit Radiation Oncology at [address] [phone] Santiago Arroyo MD [address] [place] [address] RADIATION ONCOLOGY [place], [place] [id number] Malignant neoplasm of prostate Social History Tobacco [...] Sign Reading Time Taken Comments Blood Pressure 112/62 03/17/2020 1:59 PM EDT Pulse 64 03/17/2020 1:59 PM EDT Temperature 37 ??C (98.6 ??F) 03/17/2020 1:59 PM EDT Respiratory Rate 16 03/17/2020 1:59 PM EDT Oxygen Saturation - - Inhaled Oxygen Concentration - - Weight - - Height - - Body Mass Index - - documented in this encounter Progress Notes * Santiago Arroyo MD - 03/17/2020 2:15 PM EDT Radiation Oncology visit note PATIENT IDENTIFICATION Diagnosis Cancer Staging Malignant neoplasm of prostate Staging form: Prostate, AJCC 8th Edition - Clinical: Stage Unknown (cTX, cN0, cM0, PSA: 7.2, Grade Group: 1) - Signed by Santiago Arroyo MD on 12/16/2019 INTENT OF THERAPY: Definitive (Curative) RADIATION TREATMENT DETAILS: Treatment Site Prostate Prescribed Dose 36.25 Gy in 5 fractions Current Dose: 21.75 Gy in 3 fractions INTERVAL HISTORY Subjective: General - No changes since last seen. - No new nocturia / dysuria. On average uses restroom 1x/nt. Prostate IPSS and BALDEV(Pt Entered): last 5 values Prostate Today's Scores 09/08/2019 12/22/2019 Sexual Health Inventory for Men 24 25 International Prostate Symptom Score 15 (Moderate LUTS) 3 ( Mild LUTS) Pain: Pain score today is 0/10. MEDS Medications 03/17/20 1400 Medication Sig Taking? celecoxib (CeleBREX) 200 mg [...] Tablet(s), PO, Three times daily EXAM: BP 112/62 Pulse 64 Temp 37 ??C (98.6 ??F) Resp 16 Constitutional: he appears well-developed and well-nourished. No [...] Impression: Patient presents prior to treatment with FOURTH fraction of SBRT to the prostate. Plan: Continue with SBRT today. POST TREATMENT NOTE: I directly observed and supervised today's treatment from the radiation therapy console, which consisted of pretreatment imaging for setup, cone-beam CT for verification and intrafraction monitoring using the Marker-Match real time fiducial IGRT treatment system. Krishan tolerated treatment with no concerns. He will return on Sunday for his 5th and final fraction. Anticipate phone follow-up visit in 4 weeks, and recheck PSA in 3 months. documented in this encounter Plan of Treatment Not on file documented as of this encounter Visit Diagnoses Diagnosis Malignant neoplasm of prostate documented in this encounter Care Teams Battery Checker Relationship Specialty Start Date End Date Natty Mckinney MD [address] [place] [address] PCP - General 10/11/10 documented as of this encounter
--- OUTSIDE RECORDS SUMMARY | 2024-05-30 01:14 | XMS_ITS | Encounter Summary ---
Author Organization [facility] [place] [address] Care Team Providers Care Digital Account Coordinator Name Role Phone Natty Mckinney MD Primary Care Provider [phone] Encounter Details Date Type Department Care Team (Late st Contact Info) Description 05/06/2020 Telephone Radiation Oncology at [address] [phone] Arun Lyle Social History Tobacco [...] on filedocumented in this encounter Care Teams Digital Account Coordinator Relationship Specialty Start Date End Date Natty Mckinney MD [address] [place] [address] PCP - General 10/11/10 documented as of this encounter
--- OUTSIDE RECORDS SUMMARY | 2024-05-30 01:14 | XMS_ITS | Encounter Summary ---
Author Organization [facility] [place] [address] Care Team Providers Care Shift Boss Name Role Phone Natty Mckinney MD Primary Care Provider [phone] Encounter Details Date Type Department Care Team (Late st Contact Info) Description 05/06/2020 8:30 AM EDT Office Visit Radiation Oncology at [address] [phone] Santiago Arroyo MD [address] [place] [address] RADIATION ONCOLOGY [place], [place] [id number] Malignant neoplasm of prostate Social History Tobacco [...] kg (147 lb 6.4 oz) 05/06/2020 8:00 A M EDT Height - - Body Mass Index 19.99 09/08/2019 8:08 AM EDT documented in this encounter Progress Notes * Santiago Arroyo MD - 05/06/2020 8:30 AM EDT Images from the original note were not included. ? RADIATION ONCOLOGY - Return Visit Note ? Santiago Arroyo MD, MS Radiation Oncology ?? [facility] [phone] (paging granular operator) Pager #[phone] ?? PATIENT IDENTIFICATION ? Name Krishan Monte [...] Start Date End Date 03/10/20 03/19/20 ?? METAL BASE BLOCKER TREATMENT MANCILLA: ?? INTERVAL HISTORY Subjective: General - Overall feels fair. - More urination noted, urinating very frequently throughout the day (hourly or more frequently), with dysuria rated 7/10. He started a prednisone taper 2 weeks ago at a dose of 80 mg daily (rx'd by PCP), now down to 50mg daily. He had [...] chair more than 50% of waking hours - 4 Completely disabled; cannot carry on any [...] so this encounter constitutes a no-charge globalvisit. documented in this encounter Plan of Treatment Not on file documented as of this encounter Visit Diagnoses Diagnosis Malignant neoplasm of prostate documented in this encounter Care Teams Shift Boss Relationship Specialty Start Date End Date Natty Mckinney MD [address] [place] [address] PCP - General 10/11/10 documented as of this encounter
--- OUTSIDE RECORDS SUMMARY | 2024-05-30 01:14 | XMS_ITS | Encounter Summary ---
Author Organization [facility] [place] [address] Care Team Providers Care Gas Appliance Servicer Name Role Phone Natty Mckinney MD Primary Care Provider [phone] Encounter Details Date Type Department Care Team (Late st Contact Info) Description 09/22/2021 11:00 AM EDT Office Visit Radiation Oncology at [address] [phone] Natty Lawton, DIRECTOR OF DATABASE MARKETING [facility] [place] [address] Malignant neoplasm of prostate (Primary Dx) Social [...] Sign Reading Time Taken Comments Blood Pressure 128/76 09/22/2021 10:55 AM EDT Pulse 77 09/22/2021 10:55 AM EDT Temperature 37.1 ??C (98.8 ??F) 09/22/2021 10:55 AM E DT Respiratory Rate 20 09/22/2021 10:55 AM EDT Oxygen Saturation 100% 09/22/2021 10:55 AM EDT Inhaled Oxygen Concentration - - Weight 66.8 kg (147 lb 4.3 oz) 09/22/2021 10:55 AM EDT Height - - Body Mass Index 19.43 09/03/2020 8:54 AM EDT documented in this encounter Progress Notes * JeredGradyche LucasOSMANYN - 09/22/2021 11:00 AM EDTSummary: 56 year old M with low-risk prostate cancer (cTx, PSA 7.2, Gl 6). Compl SBRT 03/19/20 Images from the original note were not included. [facility] [place] [address] Phone: RADIATION ONCOLOGY FOLLOW UP NOTE Date of visit: 09/21/2021 Patient Krishan Monte 1965 PCP: Natty Mckinney [...] with SBRT to the prostate. ?? Krishan Monte??is a 54 y.o.??male??with history of Crohn's disease s/p colectomy??recently diagnosed with a??low-risk prostate cancer.??He has had an ileostomy since 1988.??He has surgically absentrectum. ?? Presenting Symptoms / Duration:?? Elevated PSA. Rectal exam not possible as patient is s/p APR. ?? Prior consultations / recommendations: Dr Seals??10/14 [...] Start Date End Date 03/10/20 03/19/20 ?? PROFESSOR OF SPECIAL EDUCATION TREATMENT MANCILLA: ?? Interim HPI: 04/07/21 second read bone scan /Shweta Hendrix notes Call to Dr Lopes patient's PCP to review the results of patient's recent bone scan and the secondread done by [facility] radiology. He is appreciative of the results. I informed her that patient has been notified. ?? FINDINGS: No suspicious osseous lesions. Right knee [...] ?? IMPRESSION No evidence of osseous metastasis. Medications 03/24/21 1129 Medication Sig Taking? mecobalamin, vitamin B12, 1,000 mcg Tablet, Chewable Inject into the vein. aspirin 81 mg Tablet, Chewable Take 81 mg by mouth Daily. diclofenac (VOLTAREN) 1 % Gel Apply topically. gabapentin (Neurontin) 100 mg Capsule TAKE ONE CAPSULE BY MOUTH THREE TIMES A DAY naloxone 4 mg/actuation [place], Non-Aerosol by Nasal route. nicotine (NICODERM CQ) 14 mg/24 hr Patch 24 hr Change on the skin. Ostomy Supplies Misc Daily. pantoprazole EC (Protonix) [...] OTHER 10/08/2019 CT Guided Biopsy Other 10/08/2019 [facility] RAD CAT SCAN Family History Problem Relation [...] reviewed the IPSS/BALDEV/Epic-Cp survey results from today Total IPSS Score (range: 0 - 35) 17 (Moderate LUTS) Confidence, level - past 6 months Very High Penetration - past 6 months Almost always or always Penetration, maintain - past 6 months Almost always or always Erection, maintain - past 6 months Not difficult Sexual satisfaction - past 6 months Almost always or always Sexual Health in Men (range: 1 - 21) 25 Patient concerns for today's visit: General:doing okay but has chronic pain in abdom. Fatigue:Is prominent due to severe Crohn dz. Weight/appetite/diet 147 lb today Respiratory:no issues despite smoking 1.5-3 ppd GI:colostomy, Crohn's dz, abdomen. He does relate [...] TSH Sexual health:drive is good, and sexual function Muscle skeletal: Bone health: taking Vit D/ Calcium, had [...] Support/ social relationships: has none listed, has raysa herron who is a delightful addition to his [...] chair Physical Examination: Body mass index is 19.43 kg/m??. BP 128/76 (Patient Position: Sitting) Pulse 77 Temp 37.1 ??C (98.8 ??F) (Temporal) Resp 20 Wt 66.8 kg (147 lb 4.3 oz) Constitutional: seen In clinic, no distress HENT: normocephalic, anicteric, neck supple, no adenopathy Cardiovascular: Rate and Rhythm: Normal rate and regular rhythm. Heart sounds: Normal heart sounds. No murmur Pulmonary: Effort: Pulmonary effort is normal. Breath sounds: Normal breath sounds. No wheezing or rales. Abdomen: Flat abdomen and not palpated per request as can be painful to pt based on his Crohn's dz. Genitourinary: Rectum: could not have a RACHAEL due to surgically absent rectum. No inguinal adenopathy Musculoskeletal: Normal range of motion. General: No swelling or deformity. No spinal percussion tenderness No CVA tenderness Comments: Ambulates without assistance Skin: General: Skin is warm and dry. Neurological: General: No focal deficit present. Mental Status: alert and oriented to person, place, and time. Gait: Gait normal. Psychiatric: Mood and Affect: Mood normal. Behavior: Behavior normal. Thought Content: Thought content normal. Judgment: Judgment normal. New Labs Reviewed this visit: Date PSA Test Notes 07/08/21 1.7 2/2/21 1.6 04/16/20 1.9 09/08/19 6.38 06/19/19 7.2 01/06/19 5.4 08/15/16 3.32 04/16/15 3.8 04/18/13 4.57 11/22/12 4.69 Assessment: 56 y.o. presenting for follow up/ lab for [...] and this has been long standing over decades. BMI 19.43 because food is not enjoyable, his smoking is chief oral comfort and he will not give up. He feels that he is being carefully monitored by his PCP for anemia and deficiencies. Medical Decision Making/Recommendations/Plan: # prostate cancer: reviewed [...] longer. Smokin.5-3ppd Alcohol: none Annual exam with PCP: Up to date on vaccinations:has had moderna [...] the radiation therapy/prostate cancer Natty Lawton MSN, DIRECTOR OF DATABASE MARKETING, VETERINARY RADIOLOGIST-C Nurse Practitioner Radiation Oncology documented in this encounter Plan of Treatment Not on file documented as of this encounter Visit Diagnoses Diagnosis Malignant neoplasm of prostate- Primary documented in this encounter Care Teams Gas Appliance Servicer Relationship Specialty Start Date End Date Natty Mckinney MD [address] [place] [address] PCP - General 10/11/10 documented as of this encounter
--- OUTSIDE RECORDS SUMMARY | 2024-05-30 01:14 | XMS_ITS | Encounter Summary ---
Author Organization [facility] [place] [address] Care Team Providers Care Puppy Sitter Name Role Phone Natty Mckinney MD Primary Care Provider [phone] Encounter Details Date Type Department Care Team (Latest Contact Info) Description 03/12/2020 10:00 AM EDT Procedure visit Radiation Oncology at [address] [phone] Benito Samayoa MD [facility] [place] [address] Malignant neoplasm of prostate Social History Tobacco [...] 36.9 ??C (98.4 ??F) 03/12/2020 9:41 AM ED T Respiratory Rate 16 03/12/2020 9:41 AM EDT Oxygen Saturation 100% 03/12/2020 9:41 AM EDT Inhaled Oxygen Concentration - - Weight - - Height - - Body Mass Index - - documented in this encounter Progress Notes * Benito Samayoa MD - 03/12/2020 10:00 AM [...] prostate documented in this encounter Care Teams Puppy Sitter Relationship Specialty Start Date End Date Natty Mckinney MD [address] [place] [address] PCP - General 10/11/10 documented as of this encounter
--- OUTSIDE RECORDS SUMMARY | 2024-05-30 01:14 | XMS_ITS | Encounter Summary ---
Author Organization [facility] [place] [address] Care Team Providers Care Law Office Receptionist Name Role Phone Natty Mckinney MD Primary Care Provider [phone] Encounter Details Date Type Department Care Team (Late st Contact Info) Description 03/10/2020 2:15 PM EDT Procedure visit Radiation Oncology at [address] [phone] Santiago Arroyo MD [address] [place] [address] RADIATION ONCOLOGY [place], [place] [phone] Malignant neoplasm of prostate Social History Tobacco [...] Progress Notes * Santiago Arroyo MD - 03/10/2020 2:15 PM EDT Images from the original note were not included. RADIATION ONCOLOGY - SBRT Pre-Treatment Visit Note 03/07/20 Santiago Arroyo MD Radiation Oncology [facility] [phone] (paging double spindle shaper operator) PATIENT IDENTIFICATION Name Krishan Monte Date [...] prostate documented in this encounter Care Teams Law Office Receptionist Relationship Specialty Start Date End Date Natty Mckinney MD [address] [place] [address] PCP - General 10/11/10 documented as of this encounter
--- OUTSIDE RECORDS SUMMARY | 2024-05-30 01:14 | XMS_ITS | Encounter Summary ---
Author Organization [facility] [place] [address] Care Team Providers Care Company Accountant Name Role Phone Natty Mckinney MD Primary Care Provider Encounter Details Date Type Department Care Team (Latest Contact Info) Description 04/06/2021 1:35 PM EDT Ancillary Procedure [place] [phone] Shweta Hendrix, [address] RADIATION ONCOLOGY [place], [place] [phone] Malignant neoplasm of prostate Social History Tobacco [...] Associated Diagnosis Comments REQUEST FOR 2ND READ NUCLEAR MEDICINE Routine 04/06/2021 1:15 PM EDT Malignant neoplasm of prostate documented in this encounter Results * Request for 2nd read Nuclear Medicine (04/06/2021 1:15 PM EDT) Anatomical Region Laterality Modality SO Impressions 04/06/2021 4:58 PM EDT No evidence of osseous metastasis. I have personally reviewed the image(s) and the resident's interpretation and agree with the findings, Loyd Hayden MD at 04/06/2021 4:58 PM Thank you for letting us participate in the care of this patient. ??If you are a health care provider and have any questions regarding this report, please contact the number below. ??For patients who have questions please contact the health primary care coordinator that requested your imaging first. ? 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 Yes TECHNIQUE: Three hours following the intravenous administration of 25 mCi of technetium-99m MDP, [...] bladder. 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 Yes TECHNIQUE: Three hours following the intravenous administration of 25 mCiof technetium-99m MDP, planar images of the skeleton in anterior andposterior projection were obtained. COMPARISON: None FINDINGS: No suspicious osseous lesions. Right knee prosthesis present with nonspecific periprosthetic activity.Mild diffusely increased activity in the right femoral diaphysis proximal tothe knee prosthesis is likely due to altered weightbearing. Small focus of MDP avid degenerative change on the left side of L5/S1. Degenerative change also seen in the right ankle. Normal renally excreted activity in the kidneys and in the urinarybladder. IMPRESSION No evidence of osseous metastasis. I have personally reviewed the image(s) and the resident's interpretationand agree with the findings, Loyd Hayden MD at 04/06/2021 4:58 PM Thank you for letting us participate in the care of this patient. If youare a health care provider and have any questions regarding this report,please contact the number below. For patients who have questions please contactthe health primary care coordinator that requested your imaging first. Shweta Hendrix APRN IMG OUTSIDE INTERPRE TATION ORDERABLES documented in this encounter Visit Diagnoses Diagnosis Malignant neoplasm of prostate documented in this encounter Care Teams Company Accountant Relationship Specialty Start Date End Date Natty Mckinney MD [address] [place] [address] PCP - General 10/11/10 documented as of this encounter
--- OUTSIDE RECORDS SUMMARY | 2024-05-30 01:14 | XMS_ITS | Encounter Summary ---
Author Organization [facility] [place] [address] Care Team Providers Care Offbearer Name Role Phone Natty Mckinney MD Primary Care Provider [phone] Encounter Details Date Type Department Care Team (Late st Contact Info) Description 05/13/2020 8:00 AM EDT TH Visit (TeleHealth) Radiation Oncology at [address] [phone] Santiago Arroyo MD [address] [place] [address] RADIATION ONCOLOGY [place], [place] [phone] Malignant neoplasm of prostate Social History Tobacco [...] Progress Notes * Santiago Arroyo MD - 05/13/2020 8:00 AM EDT Images from the original note were not included. ? RADIATION ONCOLOGY - Phone Note ? Santiago Arroyo MD, MS Radiation Oncology ?? [facility] [phone] (paging flexographic printing press operator) Pager #[phone] ?? PATIENT IDENTIFICATION ? Name Krishan Monte [...] Start Date End Date 03/10/20 03/19/20 ?? HANDSTITCHING MACHINE ARMHOLE FELLER TREATMENT MANCILLA: ?? INTERVAL HISTORY Subjective: General - Overall feels better. - He was seen last 05/06, started Azo on Wednesday 05/09 with dramatic improvement in dysuria / frequency. He then started flomax/decadron 12mg on [...] which point we will call him and initiate a taper. He knows that on Sunday he [...] prostate documented in this encounter Care Teams Offbearer Relationship Specialty Start Date End Date Natty Mckinney MD [address] [place] [address] PCP - General 10/11/10 documented as of this encounter
--- OUTSIDE RECORDS SUMMARY | 2024-05-30 01:14 | XMS_ITS | Encounter Summary ---
Author Organization [facility] [place] [address] Care Team Providers Care Financial Planning Advisor Name Role Phone Natty Mckinney MD Primary Care Provider [phone] Encounter Details Date Type Department Care Team (Late st Contact Info) Description 01/06/2020 Telephone Radiation Oncology at [address] [phone] Arun Lyle Social History Tobacco [...] in this encounter Care Teams Financial Planning Advisor Relationship Specialty Start Date End Date Natty Mckinney MD [address] [place] [address] PCP - General 10/11/10 documented as of this encounter
--- OUTSIDE RECORDS SUMMARY | 2024-05-30 01:14 | XMS_ITS | Encounter Summary ---
Author Organization [facility] [place] [address] Care Team Providers Care Horse Riding Coach Or Instructor Name Role Phone Natty Mckinney MD Primary Care Provider [phone] Encounter Details Date Type Department Care Team (Late st Contact Info) Description 04/26/2020 Telephone Radiation Oncology at [address] [phone] Tamara Boone RN Social History [...] Telephone Encounter - Tamara Boone RN - 04/26/2020 4:11 PM EDT Radiation Oncology Nurse Telephone Note [facility]- [place], [place] ----- Message from Santiago Arroyo MD sent at 04/26/2020 12:09 PM EDT ----- Regarding: RE: Note from PCP Please let her know that for arthralgia I defer to her as to usefuleness of prednisone Otherwise we would ordinarily check a U/A and otherwise rx pyridium for dysuria post RT I will be calling him on for post RT check ----- Message ----- From: Tamara Boone RN Sent: 04/23/2020 3:28 PM EDT To: Santiago Arroyo MD Subject: Note from PCP Hi Dr Arroyo There is a progress note in scan docs from his PCP Natty Mckinney. She has placed him on a prednisone taper for arthralgias and inflammation on the pelvis . She wants us to call pt if we don't wanthim on Prednisone. I don't believe you need to do anything if you are in agreement of this. Tamara 04/26/20 16:10 Telephone call to [facility] ( [place], [place]) Natty Mckinney MD [phone] Spoke to nurse, Yanni. I read her the above message from Dr Arroyo . She states she recalls rooming patient last week and he wasn't having dysuria or pain with urination, just some pelvic pain. She acknowledged that he has h/o chronic abd pain with Chrons disease. She will relay this information back to Dr Mckinney. Plan : Dr Arroyo will be calling him this for routine check after radiation treatments. documented in this encounter Plan of Treatment Not on file documented as of this encounter Visit Diagnoses Not on filedocumented in this encounter Care Teams Horse Riding Coach Or Instructor Relationship Specialty Start Date End Date Natty Mckinney MD [address] [place] [address] PCP - General 10/11/10 documented as of this encounter
--- OUTSIDE RECORDS SUMMARY | 2024-05-30 01:14 | XMS_ITS | Encounter Summary ---
Author Organization [facility] [place] [address] Care Team Providers Care Serger Name Role Phone Natty Mckinney MD Primary Care Provider [phone] Encounter Details Date Type Department Care Team (Late st Contact Info) Description 03/15/2020 8:30 AM EDT Procedure visit Radiation Oncology at [address] [phone] Santiago Arroyo MD [address] [place] [address] RADIATION ONCOLOGY [place], [place] [id number] Malignant neoplasm of prostate Social History Tobacco [...] Progress Notes * Santiago Arroyo MD - 03/15/2020 8:30 AM [...] prostate documented in this encounter Care Teams Serger Relationship Specialty Start Date End Date Natty Mckinney MD [address] [place] [address] PCP - General 10/11/10 documented as of this encounter
--- OUTSIDE RECORDS SUMMARY | 2024-05-30 01:14 | XMS_ITS | Encounter Summary ---
Author Organization [facility] [place] [address] Care Team Providers Care Director Of Litigation Name Role Phone Natty Mckinney MD Primary Care Provider [phone] Encounter Details Date Type Department Care Team (Late st Contact Info) Description 09/03/2020 9:00 AM EDT Office Visit Radiation Oncology at [address] [phone] Akila Ortiz APRN [facility] [place] [address] Malignant neoplasm of prostate Social History Tobacco [...] Sign Reading Time Taken Comments Blood Pressure 118/68 09/03/2020 8:54 AM EDT Pulse 71 09/03/2020 8:54 AM EDT Temperature 36.6 ??C (97.8 ??F) 09/03/2020 8:54 AM ED T Respiratory Rate 20 09/03/2020 8:54 AM EDT Oxygen Saturation 100% 09/03/2020 8:54 AM EDT Inhaled Oxygen Concentration - - Weight 71.8 kg (158 lb 3.2 oz) 09/03/2020 8:54 A M EDT Height 185.4 cm (6' 1) 09/03/2020 8:54 AM EDT Body Mass Index 20.87 09/03/2020 8:54 AM EDT documented in this encounter Patient Instructions * Patient Instructions* Akila Ortiz APRN - 09/03/2020 9:00 AM EDT He will return in 6 months with labs prior for followup. documented in this encounter Progress Notes * Akila Ortiz APRN - 09/03/2020 9:00 AM EDT Images from the original note were not included. ? RADIATION ONCOLOGY - Followup Visit ? Akila Ortiz APRN Radiation Oncology ?? [facility] ?? PATIENT IDENTIFICATION ? Name Krishan Monte [...] Start Date End Date 03/10/20 03/19/20 ?? 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 INTERVAL HISTORY Subjective: General - Overall continues to feel better. Weight is slightly up - about 6 lbs Energy is good- back to baseline.In good spirits. No shortness of breath, chest pain. No headaches. - He generally voids 1-2 times daily. He feels pressure over his bladder. There is no blood in in his urine or stools. He continues to have chronic abdominal pain. It is unchanged from his previous visit. Prostate IPSS and BALDEV(Pt Entered): last 5 values Prostate Today's Scores 09/08/2019 12/22/2019 Sexual Health Inventory for Men 24 25 International Prostate Symptom Score 15 (Moderate LUTS) 3 ( Mild LUTS) Pain: Pain score today is 8/10 - this is a chronic type abdominal / pelvic pain (ongoing for multiple years). MEDS Medications 09/03/20 0951 Medication Sig Taking? cyanocobalamin, vitamin B-12, 1,000 mcg/mL Solution ADM [...] 4 Tablet(s), PO, Three times daily Yes tamsulosin (Flomax) 0.4 mg Capsule Take 1 capsule by mouth 2 times daily. Patient not taking: Reported on 09/03/2020 amoxicillin (Amoxil) 500 mg Capsule daily. predniSONE (Deltasone) 20 mg Tablet 2 tablets daily. Tapering down 10 mg every 5 days predniSONE (Deltasone) 10 mg Tablet 1 tablet daily. Tapering down 10 mg Q 5days phenazopyridine (Pyridium) 200 mg Tablet Take 1 tablet by mouth 3 times daily as needed for Pain. Patient not taking: Reported on 09/03/2020 omeprazole (PriLOSEC) 40 mg Capsule, Delayed Release(E.C.) Take 1 tablet daily 1/2 hour prior to breakfast while you are taking dexamethasone, to prevent upset stomach. Patient not taking: Reported on 09/03/2020 ondansetron ODT (Zofran-ODT) 4 mg Tablet, Rapid Dissolve every 8 hours as needed. VENTOLIN HFA 90 mcg/actuation HFA Aerosol Inhaler inhale 1 to 2 puffs by mouth every 4 hours if needed for shortness of breath wheezing cough .Temp: [36.6 ??C (97.8 ??F)] Heart Rate: [71] Resp: [20] BP: (118)/(68) SpO2: [100 %] Heart Rate from SpO2: -- Alert oriented and in no acute distress. Lungs clear to auscultation Heart regular rhythm and rate Abdomen soft some discomfort upon palpation, active bowel sounds Extremities no edema noted in lower extremities Psych in good spirits Performance Status: KPS Score ECOG Grade Definition [...] to bed or chair LABS PSA History: 08/31/20 1.1 04/19/20: 1.9 09/08/19:??6.38 06/19/19: 7.2 01/06/19: 5.4 08/15/16: 3.32 04/16/15: 3.8 04/18/13: 4.57 11/22/12: 4.69 IMPRESSION/PLAN Impression: This is a 55 y.o.man who is s/p SBRT for low risk prostate cancer. He still has some issues with pressure on his bladder and voiding. He did stop taking the flomax at the same time as his steroids. Plan: 1.he will restart the flomax to see if it makes any improvement in his symptoms. He will call if heneeds a new prescription. 2. I will call him with his most recent PSA. It is still pending. As long as it stable or lower than previous- he will return in 6 months with labs prior. His PSA is 1.1 which is lower than his previous reading. He will return in 6 months with labs prior. documented in this encounter Plan of Treatment Not on file documented as of this encounter Visit Diagnoses Diagnosis Malignant neoplasm of prostate documented in this encounter Care Teams Director Of Litigation Relationship Specialty Start Date End Date Natty Mckinney MD [address] [place] [address] PCP - General 10/11/10 documented as of this encounter
--- OUTSIDE RECORDS SUMMARY | 2024-05-30 01:14 | XMS_ITS | Encounter Summary ---
Author Organization [facility] Address [facility] [place] [address] Care Team Providers Care Environmental Inspector Name Role Phone Natty Mckinney MD Primary Care Provider [phone] Encounter Details Date Type Department Care Team (Late st Contact Info) Description 01/28/2020 Notes Only Radiation Oncology at [address] [phone] Nancy Sandoval MSW OFFICE OF CARE MANAGEMENT Social History Tobacco Use Types Packs/Day Years [...] as of this encounter Progress Notes * Nancy Sandoval MSW - 01/28/2020 4:11 PM EDT Reason for Referral: Brief assessment of social and emotional needs. Met with pt after his sim today. Social Supports: Pt identified his son who lives in the area and his daughter in [place] as his primary supports. Living Situation/Daily Activities/Transportation: [...] advance directive and requested a copy for his record. Utilization of Community Resources: None at this [...] at this time. Plan: Informed pt of NUTRITION INTERN availability and will follow for support and resources. documented in this encounter Plan of Treatment Not on file documented as of this encounter Visit Diagnoses Not on filedocumented in this encounter Care Teams Environmental Inspector Relationship Specialty Start Date End Date Natty Mckinney MD [address] [place] [address] PCP - General 10/11/10 documented as of this encounter
--- OUTSIDE RECORDS SUMMARY | 2024-05-30 01:14 | XMS_ITS | Encounter Summary ---
Author Organization [facility] [place] [address] Care Team Providers Care Fabrication Inspector Name Role Phone Natty Mckinney MD Primary Care Provider [phone] Encounter Details Date Type Department Care Team (Late st Contact Info) Description 07/08/2021 Orders Only [place] [address] Natty Lawton APRN [facility] [place] [address] Malignant neoplasm of prostate (Primary Dx) Social [...] Primary documented in this encounter Care Teams Fabrication Inspector Relationship Specialty Start Date End Date Natty Mckinney MD [address] [place] [address] PCP - General 10/11/10 documented as of this encounter
--- OUTSIDE RECORDS SUMMARY | 2024-05-30 01:14 | XMS_ITS | Encounter Summary ---
Author Organization [facility] [place] [address] Care Team Providers Care Feeder Tender Name Role Phone Natty Mckinney MD Primary Care Provider [phone] Encounter Details Date Type Department Care Team (Late st Contact Info) Description 05/17/2020 Telephone Radiation Oncology at [address] [phone] Tamara Boone RN Social History [...] Telephone Encounter - Tamara Boone RN - 05/17/2020 2:42 PM EDT Radiation Oncology Nurse Telephone Note [facility]- [place], [place] ----- Message from Santiago Arroyo MD sent at 05/13/2020 8:33 AM EDT ----- Tamara - please call Krishan on Sunday with taper instructions (decrease from 8 --> 4 --> 2 --> 1 --> 1 qod) every 7 days. Isai - please setup another RV/TOV next between OTVs to check on his progress 05/17/2020 2:40 PM Telephone call to pt. Left brief message asking for return call. My name and contact information was provided. 05/18/20 3:21 Very little energy. No dysuria, still getting itchy acid feeling in the groin, but better, not as often. He took the dexmethasone 4 mg, 3 tabs once a day over the weekend. Yesterday his PCP sent in a prescription for prednisone 10 mg so he took that once a day yesterday and today. ( instead of the dex) I gave him the above information of tapering off the dexamethasone. He will take 2 pills a day to equal 8 mg a day. Patient verbalized understanding of the taper to happen every 7 days. Plan: He has a telephone appointment w/ Dr Arroyo this 05/20. At this time a 1 mg dose canbe prescribed to help with the taper. documented in this encounter Plan of Treatment Not on file documented as of this encounter Visit Diagnoses Not on filedocumented in this encounter Care Teams Feeder Tender Relationship Specialty Start Date End Date Natty Mckinney MD [address] [place] [address] PCP - General 10/11/10 documented as of this encounter
--- OUTSIDE RECORDS SUMMARY | 2024-05-30 01:14 | XMS_ITS | Encounter Summary ---
Author Organization [facility] [place] [address] Care Team Providers Care Automotive Design Layout Drafter Name Role Phone Natty Mckinney MD Primary Care Provider Encounter Details Date Type Department Care Team (Late st Contact Info) Description 05/06/2020 8:00 AM EDT TH Visit (TeleHealth) Radiation Oncology at [address] [phone] Santiago Arroyo MD [address] [place] [address] RADIATION ONCOLOGY [place], [place] [id number] Malignant neoplasm of prostate Social History Tobacco [...] Notes * Santiago Arroyo MD - 05/06/2020 8:00 AM EDT Encounter created in error. Please see separate note from today's visit. documented in this encounter Plan of Treatment Not on file documented as of this encounter Visit Diagnoses Diagnosis Malignant neoplasm of prostate documented in this encounter Care Teams Automotive Design Layout Drafter Relationship Specialty Start Date End Date Natty Mckinney MD [address] [place] [address] PCP - General 10/11/10 documented as of this encounter
--- OUTSIDE RECORDS SUMMARY | 2024-05-30 01:14 | XMS_ITS | Encounter Summary ---
Author Organization [facility] [place] [address] Care Team Providers Care Molecular Pathologist Name Role Phone Natty Mckinney MD Primary Care Provider [phone] Encounter Details Date Type Department Care Team (Late st Contact Info) Description 05/11/2020 Telephone Radiation Oncology at [address] [phone] Melvi Maddox RN Social History Tobacco Use Types Packs/Day [...] Miscellaneous Notes * Telephone Encounter - Melvi Maddox RN - 05/11/2020 1:53 PM EDT Background: Received voicemail from [facility] in [facility] stating that they do not currently have dexamethasone 6 mg tablets available and they are on back order. They wonder if MD wouldlike to change order to 4mg or 2 mg tablets which they do have available. Updated Dr. Arroyo via telephone. He ordered dexamethasone 4 mg, take 3 tablets daily. Dispense 60tablets. No refills. Telephone call to patient for status update and to instruct regarding above. He reports that he hasstarted the tamsulosin and over the counter pyridium recommended by pharmacist as his insurance company did not cover the prescription. He does note some improvement in his urinary symptoms. Instructed him regarding change of dexamethsone as above. He verbalized good understanding of how to take dexamethsone. Plan: Dr. Arroyo plans telephone encounter 05/13/20. documented in this encounter Plan of Treatment Not on file documented as of this encounter Visit Diagnoses Diagnosis Malignant neoplasm of prostate documented in this encounter Care Teams Molecular Pathologist Relationship Specialty Start Date End Date Natty Mckinney MD [address] [place] [address] PCP - General 10/11/10 documented as of this encounter
--- OUTSIDE RECORDS SUMMARY | 2024-05-30 01:14 | XMS_ITS | Encounter Summary ---
Author Organization [facility] [place] [address] Care Team Providers Care Media Consultant Name Role Phone Natty Mckinney MD Primary Care Provider [phone] Reason for Visit * Reason Comments Prostate Cancer Encounter Details Date Type Department Care Team (Late st Contact Info) Description 03/24/2021 10:30 AM EDT TH Visit (TeleHealth) Radiation Oncology at [address] [phone] Shweta Hendrix SPECIAL AGENT [employer] [address] [place] [address] [place] [address] Malignant neoplasm of prostate Social History Tobacco [...] Progress Notes * Shweta Hendrix APRN - 03/24/2021 10:30 AM [...] 5 fractions ? Start Date End Date 4/22/20 5/1/20 ?? EMPLOYMENT TRAINER TREATMENT MANCILLA: ?? Patient Active Problem List [...] OTHER 10/08/2019 CT Guided Biopsy Other 10/08/2019 [facility] RAD CAT SCAN Medications 03/24/21 1129 Medication Sig Taking? mecobalamin, vitamin B12, 1,000 mcg Tablet, Chewable Inject into the vein. Yes diclofenac (VOLTAREN) 1 % Gel Apply topically. Yes naloxone 4 mg/actuation [place], Non-Aerosol by Nasal route. 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 Because he had persistent hip pain he had imaging done of his hip at [facility] where there were concerning findings and it was unclear if there was possible mets to his bone. Both of his PCP and orthopedic provider recommend that he have a bone scan and request that we arrange this. He reports no issues with urinary function. He has his usual bowel function via his ileostomy and he denies bleeding. I reviewed patient allergies, medications, problem list, Previous medical history, Previous surgical history, family history and social history. ROS: Constitutional: [...] affect walking. He had recent imaging at [facility] which demonstrated some concerning findings . Recent knee replacement on the right Exercise/functional status: Limited due to fatigue but able to drive and manage ostomy care, ADL and IADL Psych Some anxiety related to recent XR findings KPS 70-80 PE : N/E Labs: 02/08/2021-- CA=9.1, GLU= 121, BUN=12, CREAT=1.0, EGFR=>60, k=5.0, SA=690, CO2=26.4, WBC=10.03, RBC= 4.21, HGB=13.4, HCT=41.7, YASB=649 PSA History:?? 12/21/2020-- 1.6 08/31/20 1.1 04/19/20: 1.9 09/08/19:??6.38 06/19/19: ?7.2 01/06/19: ?5.4 08/15/16: ?3.32 04/16/15: ?3.8 04/18/13: ?4.57 11/22/12: ?4.69 Imaging: Assessment/ Plan MR Monte IS A is a 55 y.o.man who is s/p SBRT for low risk prostate cancer PSA 7.2, Angela 3+3. He was treated with radiation therapy to a dose of 36.25 in five fractions which was completed on 03/19/2020. He is satisfied with his current urinary function. He had recent XR after a knee replacement and due to persistent significant pain and this had abnormal findings. I will request copies of his XR report and order a bone scan. He has not had a PSA since Dec and will order this to be done now as well. He is in agreement with this plan. If the bone scan is normal we will plan ongoing surveillance in six months with labs prior to followup visit ?? I provided care to Mr Monte via telephone encounter and spent 30 minutes preparing for the virtualvisit, by reviewing previous care as documented in [...] documented in this encounter Care Teams Media Consultant Relationship Specialty Start Date End Date Natty Mckinney MD [address] [place] [address] PCP - General 10/11/10 documented as of this encounter
--- OUTSIDE RECORDS SUMMARY | 2024-05-30 01:14 | XMS_ITS | Encounter Summary ---
Author Organization [facility] Address [facility] [place] [address] Care Team Providers Care Second Class Welder Name Role Phone Natty Mckinney MD Primary Care Provider [phone] Reason for Visit * Diagnostic Test (Routine) - Closed Specialty Diagnoses / Procedures Referred By Claire guerrero Referred To Contact Radiology Diagnoses Malignant neoplasm of prostate Procedures CT Guided Fiducial Marker CT Guided Biopsy Other Santiago Arroyo MD [address] [place] [address] [place] [address] [facility] [place] [address] Referral ID Status Reason Start Date Expiration Date V isits Requested Visits Authorized [id number] Closed Specialty Service Requested 12/22/2019 06/21/2021 1 1 Encounter Details Date Type Department Care Team (Latest Contact Info) Description 01/14/2020 9:34 AM EST - 01/14/2020 11:59 PM [facility] [[email or web address] Hospital [place] [address] Santiago Arroyo MD [address] [place] [address] [place] [address] Malignant neoplasm of prostate Discharge Disposition: Home Social History Tobacco Use Types Packs/Day Years [...] Sign Reading Time Taken Comments Blood Pressure 118/75 01/14/2020 12:24 PM EST Pulse 72 01/14/2020 12:05 PM EST Temperature 37.4 ??C (99.4 ??F) 01/14/2020 12:[address] Respiratory Rate 16 01/14/2020 12:24 PM EST Oxygen Saturation 99% 01/14/2020 12:24 PM EST Inhaled Oxygen Concentration - - Weight - - Height - - Body Mass Index - - documented in this encounter Discharge Instructions * Discharge Instructions* Figueroa Bran RN - 01/14/2020 12:43 PM EST [facility] Vascular and Interventional Radiology Discharge Instructions For Your Puncture Site Activity and Diet: ??? Go Home and rest quietly for the remainder of the day. You may resume your normal activities tomorrow. ??? Resume your usual diet after the procedure. Bandage: There is a sterile dressing over the puncture site consisting of small gauze with a clear dressing (Tegaderm). This dressing should be left in place for 24 hours. If the clear dressing becomes loose you should place tape over the edges to secure it in place. Bathing: Do not take a shower until 24 hours after your procedure; after this time you may shower with the dressing in place, then remove it and pat your skin dry. You may use a bandaid to cover the site if there is any drainage. When to call your healthcare provider: ??? If you notice bleeding or a bulge from the puncture site, you should apply firm pressure over the site for 10-15 minutes, keeping the site covered and call your doctor. If you are still bleeding after 10-15 minutes, reapply pressure, and have someone drive you to the nearest Emergency Department, or call 911. ??? If you develop pain, redness, drainage or swelling at or around the puncture site. ??? If you develop fever equal to or greater than 101F and/or shaking chills. When to call the Interventional Radiology Department: Please call with any questions or concerns. If it is during regular office hours, please call [phone]. If it is after regular office hours, or on weekends or holidays, please call [phone] and ask to speak to the [employer] Ocean personal fitness trainer for Interventional Radiology. You have received medication during [...] occurs, please contact your M. D. Revised 12/03/15 documented in this encounter Medications at Time of Discharge Medication Sig Dispensed Refills Start Date End Date ondansetron ODT (Zofran-ODT) 4 mg Tablet, Rapid Dissolve every 8 hours as needed. 11/28/2019 VENTOLIN HFA 90 mcg/actuation HFA Aerosol Inhaler inhale 1 to 2 puffs by mouth every 4 hours if needed for shortness of breath wheezing cough 0 04/23/2019 HYDROcodone-acetaminoph en (NORCO) 10-325 mg Tablet TK 2 TS PO TID WITH AN ADDITIONAL TABLET AT DINNER NEEDED 0 08/22/2019 methadone (DOLOPHINE) 10 mg Tablet 15 mg See Admin Instructions. At HS and middle of night. 0 08/22/2019 diphenoxylate-atropine (LOMOTIL) 2.5-0.025 mg per tablet 4 Tablet(s), PO, Three times daily 02/23/2010 sulfamethoxazole-trimet hoprim DS (Bactrim DS) 800-160 mg Tablet daily. 12/02/2019 01/28/[address] (Cymbalta) 30 mg Capsule, Delayed Release(E.C.) daily. 12/09/2019 05/06/2020 documented as of this encounter Progress Notes * Francie Hatch, CARLOS - 01/14/2020 11:59 PM EST Interventional and Vascular Radiology Post-Procedure Call Name: Krishan Monte Age: 54 y.o. Sex; Male Date of : 1965 (home) Telephone Information: PCP Natty Mckinney MD [phone] Date/Time of call: January 15, 2020/10:24 AM Procedure: CT guided Fiducial marker placement Procedural Provider: Vaughn Contact with patient or if not, with whom? no Message left on answering machine? yes Provider notified via phone or email if unable to contact pt: (yes/no) Are you having pain related to your procedure now? Lung bx: Any shortness of breath, coughing up blood or chest pain? Liver bx: Any pain a biopsy site: Are you having any swelling or bleeding from the site? Are there any improvement in your symptoms? Are you having any other problems related to your procedure? Comments: Did you understand the discharge instructions given and do you have any questions? Comments: Do you have any comments about your Nurse or Provider or the care you received? Nurse Comments: * Monica Montiel RN - 01/14/2020 11:44 AM EST To procedure room CT via stretcher. Onto table Prone. All monitors, O2, safety strap in place. Medsper protocol. * Monica Montiel RN - 01/08/2020 3:54 PM EST [facility] NURSING DATABASE Name: KRISHAN MONTE Date of : 1965 AGE: 54 y.o. Address: [address] [address] (home) Mobile: Telephone Information: Referring Provider: Santiago Arroyo REASON FOR VISIT: Order Questions Answers Where will study be performed? [facility] Radiology [120] Laterality Bilateral Is the patient on anticoagulant / anitplatelet therapy ? No Is this biopsy due to suspicion for disease progression No Does the patient have any pertinent outside imaging? No Reason for exam and clinical history: Biopsy already performed. Request CT guided fiducial marker placement for prostate radiotherapy. (Patient has a surgically absent rectum so standard TRUS guided placement is not possible.) Plan Planned procedure: Prostate fiducial placement (01/08/201439) Labs to be performed day of procedure: No labs (01/08/20 144) Sedation: moderate (conscious sedation) (01/08/20 144) Prophylactic antibiotic : None (01/08/201439) Contrast: No contrast (01/08/201439) Additional medications for procedure: Lidocaine (01/08/201439) Planned access site: Transgluteal (01/08/201439) Position: Prone (01/08/201439) Consent: Pending (01/08/201439) No Known Allergies Pertinent PMH: Patient Active Problem List Diagnosis Code ??? Malignant neoplasm of prostate C61 Date/Procedure Meds given/comments 10/08/2019 CT Guided Prostate Biopsy Versed 4 mg IVP, Fentanyl 250 mcg IVP ??01/14/20 fiducial marker placement-prostate ??Versed IV 3 mg Fentanyl IV 200 mcg ? Laboratory Results: Lab Results Component Value Date CREATININE 0.93 10/08/2019 Lab Results Component Value Date K 4.6 10/08/2019 Lab Results Component Value Date PLATELET 221 10/08/2019 documented in this encounter H&P Notes * Amrit Mendes MD - 01/08/2020 2:34 PM EST Images from the original note were not included. INTERVENTIONAL RADIOLOGY PRE-SEDATION ASSESSMENT / FOCUSED H&P Addendum: The patient's history and physical exam have been reviewed and completed. There has been no interval change from that of the pre-operative history and physical exam done within the last 30 days. Risks (including hemorrhage, infection, allergic reaction, occlusion, respiratory depression), and benefits discussed and patient consented to the procedure. I have reviewed with the patient, their prior experience with sedation. The patient has been NPO per protocol I have reviewed the sedation plan for this patient???s case and concur that Fentanyl and Versed areappropriate choices for sedation and will be provided per the protocoled order set for this case Physical Exam Heart: RRR Lungs: clear ASA Classification: ASA 2 - Patient with mild systemic disease with no functional limitations Mallampati Classification: II (soft palate, uvula, fauces visible) FOCUSED H&P and PRE-PROCEDURE NOTE: PCP: Natty Mckinney MD Referring Provider: Santiago Arroyo Planned Procedure: Planned procedure: Prostate fiducial placement Procedure Indication: Prostate Cancer Order Questions Answers Where will study be performed? [facility] Radiology [120] Laterality Bilateral Is the patient on anticoagulant / anitplatelet therapy ? No Is this biopsy due to suspicion for disease progression No Does the patient have any pertinent outside imaging? No Reason for exam and clinical history: Biopsy already performed. Request CT guided fiducial marker placement for prostate radiotherapy. (Patient has a surgically absent rectum so standard TRUS guided placement is not possible.) Presenting Diagnosis/ Complaint: Krishan Monte is a 54 y.o. male with Chron Disease (surgically absent rectum, s/p ileostomy) and prostate cancer which was recently biopsied 10/08/20. Treatment plan will include radiation and fiducial placement has been requested. Past Medical/Surgical History: Patient Active Problem List Diagnosis Code ??? [...] OTHER 10/08/2019 CT Guided Biopsy Other 10/08/2019 [facility] RAD CAT SCAN Medications: Current Outpatient Medications on File Prior to Encounter Medication Sig Dispense Refill ??? sulfamethoxazole-trimethoprim DS (Bactrim DS) 800-160 mg Tablet daily. ??? ondansetron ODT (Zofran-ODT) 4 mg Tablet, Rapid Dissolve every 8 hours as needed. ??? DULoxetine DR (Cymbalta) 30 mg Capsule, Delayed Release(E.C.) daily. ??? VENTOLIN HFA 90 mcg/actuation HFA Aerosol Inhaler inhale 1 to 2 puffs by mouth every 4 hours ifneeded for shortness of breath wheezing cough 0 [...] resource strain: Not on file ??? Food insecurity Worry: Not on file Inability: Not on file ??? Transportation needs Medical: Not on file Non-medical: Not on file Tobacco Use ??? Smoking status: Current Every Day Smoker Packs/day: 1.50 ??? Smokeless tobacco: Never Used ??? Tobacco comment: rolls own cigarette. started smoking 14 yrs old Substance and Sexual Activity ??? Alcohol use: Yes Comment: 1 beer a month ??? Drug use: Yes Types: Marijuana Comment: smokes it 2 -3 a week ??? Sexual activity: Not on file Lifestyle ??? Physical activity Days per week: Not on file Minutes per session: Not on file ??? Stress: Not on file Relationships ??? Social connections Talks on phone: Not on file Gets together: Not on file Attends jewish service: Not on file Active member of club or organization: Not on file Attends meetings of clubs or organizations: Not on file Relationship status: Not on file ??? Intimate partner violence Fear of current or ex partner: Not on file Emotionally abused: Not on file Physically abused: Not on file Forced sexual activity: Not on file Other Topics Concern ??? Not on file Social History Narrative ??? Not on file Significant Family History: Family History Problem Relation Age of Onset ??? Prostate Cancer Father ??? Lung Cancer Maternal Aunt ??? Cancer Paternal Grandfather Pertinent ROS: as per HPI Labs: Lab Results Component Value Date WBC 12.1 (H) 10/08/2019 HCT 43.8 10/08/2019 PLATELET 221 10/08/2019 BUN 16 10/08/2019 CREATININE 0.93 10/08/2019 ALKPHOS 97 10/08/2019 AST 21 10/08/2019 ALBUMIN 4.4 10/08/2019 BILITOT 0.6 10/08/2019 ALT 33 10/08/2019 PROT 6.7 10/08/2019 K 4.6 10/08/2019 Imaging: Physical Exam: Pending (to be performed in angio the day of procedure) ASA: Pending (to be assessed in angio the day of procedure) Mallampati Class: Pending (to be assessed in angio the day of procedure) Assessment: 54 y.o. male with Chron Disease (surgically absent rectum, s/p ileostomy) and prostate cancer which was recently biopsied 10/08/20. Treatment plan will include radiation and fiducial placement has been requested. Plan: Plan Planned procedure: Prostate fiducial placement Labs to be performed day of procedure: No labs Sedation: moderate (conscious sedation) Prophylactic antibiotic : None Contrast: No contrast Additional medications for procedure: Lidocaine Planned access site: Transgluteal Position: Prone Consent: Pending 01/08/2020 Janette Eugene MD documented in this encounter Plan of Treatment Not on file documented as of this encounter Procedures Procedure Name Priority Date/Time Associated Diagnosis Comments CT GUIDED FIDUCIAL MARKER (BONES) Routine 01/14/2020 12:32 PM EST Malignant neoplasm of prostate documented in this encounter Results * CT Guided Fiducial Marker (01/14/2020 12:32 PM EST) Anatomical Region Laterality Modality Computed Tomogra phy Impressions 01/14/2020 1:35 PM EST : Technically successful placement right and left prostate fiducials. Attending: ??I, Dr. Mendes, was present throughout the procedure. I was present during the intraservice time as documented by the IR Nurse. ?? Narrative 01/14/2020 1:35 PM EST IR PROCEDURE NOTE ??: CT-guided prostate fiducial marker placement x 4 ?? INDICATION : ??Focal prostate cancer, pre RT TECHNIQUE: After discussing risks (including infection and hemorrhage), and benefits, patient consented to the procedure. ??Due to the painful nature of the procedure, split doses of fentanyl and versed were administered by the IR nurse during continuous monitoring of pulse, blood pressure and oxygen saturation. ?? Prostate was localized with CT. ??After sterile preparation of the overlying skin, 4 cc 1% lidocaine SQ was administered at four sites for anesthesia, and a 19 ga needle was advanced under CT guidance into the prostate at 4 sites (right base, apex, and left base, apex). ??At each site, after CT-confirmation of position, a PointCoil was deployed. ?? [place] removed, and hemostasis obtained with manual compression. ?? Post-procedure CT images were obtained. ??Patient tolerated the procedure well. ??There were no immediate complications. FINDINGS: ??Four metallic markers placed in prostate in right base, apex, and left base, apex. ?? Santiago Arroyo MD IM CT ORDERABLES documented in this encounter Visit Diagnoses Diagnosis Malignant neoplasm of prostate documented in this encounter Administered Medications Inactive Administered Medications - up to 3 most recent administrations Medication Order MAR Action Action Date Dose Rate Site fentaNYL 50 mcg/mL multi-dose injection 25-50 mcg, Intravenous, EVERY 3 MIN PRN, Starting on Sun01/14/20 at 1046, Until Sun01/14/20 at 1243, Pain, per unit protocol, - Start dose [...] and verbal order., Angio/IR (Intra-Procedure), Routine Given 01/14/2020 12:05 PM EST 25 mcg Given 01/14/2020 12:01 PM EST 25 mcg Given 01/14/2020 11:59 AM EST 25 mcg lidocaine (XYLOCAINE) 10 mg/mL (1 %) injection 10 mg 10 mg, Subcutaneous, ONCE, 1 dose, On Sun01/14/20 at 1115, For use in Interventional Radiology (IR) only for procedure with direct provider supervision and verbal order., Angio/IR (Intra-Procedure), Routine Given 01/14/2020 11:52 AM EST 10 mg midazolam (PF) (VERSED) multi-dose injection 0.5-1 mg 0.5-1 mg, Intravenous, EVERY 3 MIN PRN, Starting on Sun01/14/20 at 1046, Until Sun01/14/20 at 1243, Sleep, - Start dose; 1 mg (Reduce [...] and verbal order., Angio/IR (Intra-Procedure), Routine Given 01/14/2020 12:07 PM EST 0.5 mg Given 01/14/2020 11:58 AM EST 0.5 mg Given 01/14/2020 11:49 AM EST 0.5 mg documented in this encounter Care Teams Second Class Welder Relationship Specialty Start Date End Date Natty Mckinney MD [address] [place] [address] PCP - General 10/11/10 documented as of this encounter
--- OUTSIDE RECORDS SUMMARY | 2024-05-30 01:14 | XMS_ITS | Encounter Summary ---
Author Organization [facility] [place] [address] Care Team Providers Care Volunteer Services Coordinator Name Role Phone Natty Mckinney MD Primary Care Provider [phone] Encounter Details Date Type Department Care Team (Late st Contact Info) Description 04/08/2020 Notes Only Radiation Oncology at [address] [phone] Santiago Arroyo MD [address] [place] [address] DR RADIATION ONCOLOGY [place], [place] [id number] Social History Tobacco Use Types Packs/Day Years [...] Progress Notes * Santiago Arroyo MD - 04/08/2020 10:11 AM EDT Images from the original note were not included. RADIATION ONCOLOGY - Treatment Completion Summary Santiago Arroyo MD, MS Radiation Oncology [facility] [phone] (paging cp bleacher operator) Pager #[phone] PATIENT IDENTIFICATION ?? Name Krishan Monte Date of 1965 ? PCP Natty Mckinney MD Referring MD (if different) Dr. Seals ? Diagnosis Cancer Staging Malignant neoplasm of prostate Staging form: Prostate, AJCC 8th Edition - Clinical: Stage Unknown (cTX, cN0, cM0, PSA: 7.2, Grade Group: 1) - Signed by Santiago Arroyo MD on 12/16/2019 ?? Krishan Monte is a 54 [...] Start Date End Date 03/10/20 03/19/20 ?? AIRCRAFT FUSELAGE FRAMER TREATMENT FIERRO: SPECIAL TECHNICAL CONSIDERATIONS: The patient was simulated on a CT simulator. Customized fierro were designed to encompass the target volume and identify organs at risk and with the intent of minimizing normal tissue toxicity. TREATMENT TOLERANCE: With regard to side effects noted during radiotherapy, the patient tolerated treatment extremely well with no significant acute (Grade 3 or above) toxicity. TREATMENT RESPONSE: The patient's response to treatment was undetermined, as he was largely asymptomatic at the time ofpresentation. FOLLOWUP: Follow-up visit with Radiation Oncology in [facility] is scheduled for 04/29/20 for clinical symptom check; he has received instructions to call this office or seek the help of the local emergency room if any further problems should arise prior to followup. documented in this encounter Plan of Treatment Not on file documented as of this encounter Visit Diagnoses Not on filedocumented in this encounter Care Teams Volunteer Services Coordinator Relationship Specialty Start Date End Date Natty Mckinney MD [address] [place] [address] PCP - General 10/11/10 documented as of this encounter
--- OUTSIDE RECORDS SUMMARY | 2024-05-30 01:15 | XMS_ITS | Encounter Summary ---
Author Organization [facility] [place] [address] Care Team Providers Care Claims Auditor Name Role Phone Natty Mckinney MD Primary Care Provider [phone] Reason for Referral * Diagnostic Test (Routine) - Closed Specialty Diagnoses / Procedures Referred By Contangela t Referred To Contact Radiology Diagnoses Elevated PSA Procedures MRI Pelvis wwo (Prostate) Daniele Seals MD [facility] [place] [address] [place] [address] Referral ID Status Reason Start Date Expiration Date V isits Requested Visits Authorized [id number] Closed Specialty Service Requested 09/08/2019 09/07/2020 1 1 Encounter Details Date Type Department Care Team (Late st Contact Info) Description 09/08/2019 8:00 AM EDT Office Visit Hematology [place] [phone] Daniele Seals MD [facility] [place] [address] Elevated PSA Social History Tobacco Use Types Packs/Day Years Used Date Smoking Tobacco: Never Assessed Sex and Gender Information Value Date Recorded Sex Assigned at Not on file Gender Identity Not on file Sexual Orientation Not on file documented as of this encounter Last Filed Vital Signs Vital Sign Reading Time Taken Comments Blood Pressure 118/67 09/08/2019 8:08 AM EDT Pulse 62 09/08/2019 8:08 AM EDT Temperature 37 ??C (98.6 ??F) 09/08/2019 8:08 AM EDT Respiratory Rate 18 09/08/2019 8:08 AM EDT Oxygen Saturation 98% 09/08/2019 8:08 AM EDT Inhaled Oxygen Concentration - - Weight 68 kg (149 lb 14.6 oz) 09/08/2019 8:08 AM EDT Height 182.9 cm (6') 09/08/2019 8:08 AM EDT Body Mass Index 20.33 09/08/2019 8:08 AM EDT documented in this encounter Progress Notes * Nicole Eagle RN - 09/08/2019 8:00 AM EDT Prostate IPSS and BALDEV(Pt Entered): Today's answers and scores Prostate Scores and Responses 09/08/2019 Confidence, level - past 6 months Very High Penetration - past 6 months Almost always or always Penetration, maintain - past 6 months Almost always or always Erection, maintain - past 6 months Not difficult Sexual satisfaction - past 6 months Most times (much more than half the time) Sexual Health in Men 24 Incomplete emptying About half the time Frequency Less than 1 time in 5 Intermittency Less than 1 time in 5 Urgency Less than 1 time in 5 Weak Stream About half the time Straining Less than 1 time in 5 Nocturia 5 times or more Quality of life Mixed - about equally satisfied and dissatisfied Total IPSS Score 15 (MODERATE LUTS) * Siri Gunn - 09/08/2019 8:00 AM EDT [facility] SECTION OF UROLOGY Urologic Outpatient Consult Note NAME: Krishan Monte PCP: Natty Mckinney MD 09/08/2019 HPI: Krishan Monte is a 54 y.o. year old male referred by for evaluation of an elevated PSA. Unable to do rectal exam due surgical absence of rectum. PSA History review: 09/08/19: 6.38 (%Free 10) 06/19/19: 7.2 01/06/19: 5.4 08/15/16: 3.32 04/16/15: 3.8 04/18/13: 4.57 11/22/12: 4.69 Biopsy history: none Family history: father and maternal grandfather with prostate cancer. MRI history: no Other prostate cancer screening testing: no Pt reports no recent changes in his voiding, he does not have nocturia/frequency/urgency. - Does not feel he fully empties over the past year - Notes rectal pain that resolves 45 minutes after ejaculation Erectile function: no He denies any new back or bone pain, no weight loss that is unexplained. His appetite is good. 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 Social history: Active smoker (1.5 ppd, 65 pack year) FamHx: father and maternal grandfather with prostate cancer Paternal grandfather with esophageal cancer ROS: Constitutional: Denies fever, chills. +fatigue, weight loss (unclear if chron's related) Eyes: Denies acute vision change ENT: Denies sinus congestion, recent URI Pulmonary: Denies asthma, cough, recent pneumonia (winter 2017), SOB Cardiovascular: Denies chest pain, arrhythmia, [place] GI:Denies GI bleed, GERD, constipation or diarrhea. +chronic abdominal pain : As per HPI, +hematospermia x1 Endocrine: Denies diabetes, thyroid disease Integumentary: Denies skin cancer, rash Heme/lymph: Denies easy bleeding/bruising Neurologic: Denies CVA/TIA Psychiatric: Denies depression or anxiety Musculoskeletal: +back pain, weakness Allergy/immunology: Denies immune disorder Anesthesia complications: Denies PE: well appearing male, NAD Head: normocephalic and ataumatic No lymphadenopathy cervically, supraclavicularly or inguinally. Abdomen: His abdomen is soft, diffusely mildly tender, ND with no palpable masses. Ileostomy with output. : not examined Rectal: no rectum Skin: warm and dry, no lesions Musculoskeletal: symmetric without gait abnormalities Neurologic: no obvious abnormalities Psych: mood appropriate PVR by my review using bladder scanner: none, did not void Urinalysis by my review: none, did not void NCI prostate cancer risk calculator: 16% risk of high grade prostate cancer 47% risk of low grade prostate cancer 37% chance of having a negative prostate biopsy Impression: - Prostate MRI - If MRI is normal, favor trending PSA's vs. templated transperineal biopsy under CT - If MRI is abnormal, consider MRI-guided biopsy Plan/Recommendations: 1. I discussed the significance of an elevated PSA, specifically the implications in predicting thepresence of prostate cancer. We discussed his NCI prostate cancer risks per above. We discussed possibility of low vs high grade disease and the risks associated each of these types of prostate cancer. 2. I informed him that given his information reviewed today, I would recommend: Prostate MRI 3. We discussed if the MRI were normal vs. Abnormal and needing perineal biopsy 4. We discussed alternatives including monitoring his PSA, as well as the risks and benefits of prostate biopsy (including risks of blood in urine, stool, and semen, infection and rarely hospital admission.) Siri Gunn MD Section of Urology [facility] Office: [phone] I have seen the patient and reviewed the resident's above history and I agree with the details as written. The assessment and plan were formulated in discussion with me and I agree with them as documented. We will plan mpMRI of for further risk stratification considering the patient has the prostate no rectum. If there is a demonstrable lesion I would favor targeted biopsy and will reach out to see if this can be done under MR guidance.If the MRI is normal I discussed with the patient the benefit of p erforming a transperineal CT-guided prostate biopsy considering his very young age and PSA elevation. We will await the results of his MRI before making any further decisions going forward. documented in this encounter Plan of Treatment Not on file documented as of this encounter Results * MRI Pelvis wwo (Prostate) (09/23/2019 6:13 PM EST) Anatomical Region Laterality Modality Pelvis Magnetic Resonan ce Impressions 09/26/2019 2:04 PM EST Lesion 1 PZ: PI-RADS 5. Clinically significant cancer is highly likely to be present. T2 location: axial series 8, image 21; sagittal ??series 4, image 21. Segmented in UroNav. PI-RADS v2.1 Assessment Categories PI-RADS 1 -- Very low (clinically significant cancer is highly unlikely to be present) PI-RADS 2 -- Low (clinically significant cancer is unlikely to be present) PI-RADS 3 -- Intermediate (the presence of clinically significant cancer is equivocal) PI-RADS 4 -- High (clinically significant cancer is likely to be present) PI-RADS 5 -- Very high (clinically significant cancer is highly likely to be present) Thank you for letting us participate in the care of this patient. For questions regarding this report, please contact the number below. ? Narrative 09/26/2019 2:04 PM EST EXAMINATION: MRI PELVIS WWO (PROSTATE) CLINICAL HISTORY: Elevated PSA, low percent free and family history, no rectum so can not have TRUS Bx, please evaluate for risk of prostate cancer. PSA level: 6.5 Date of sextant biopsy:N/A Angela score: N/A TECHNIQUE: Multiparametric MRI of the prostate prior to and following IV administration of 14 cc of Dotarem contrast. ?? QUALITY: Meets PI-RADS technical criteria. COMPARISON: None FINDINGS: Prostate dimensions: 4.2 x 4.2 x 3.8cm. Estimated prostate volume: 29.22cc (X x Y x Z x 0.52) PSA density: 0.22 (PSA/prostate volume >0.15 susp, 0.25 highly susp) Peripheral zone: Lesion 1. Right mid gland and right base posterior and posterolateral peripheral zone. T2: Circumscribed, homogenous moderately hypointense focus confined to prostate, 3 x 1.4 cm axially, 1.2 cm craniocaudally. PI-RADs: 5. DWI: ??Focal markedly hypointense on ADC and markedly hyperintense on high b-value DWI; =1.5cm in greatest dimension or definite extraprostatic extension/invasive behavior. PI-RADs: 5. DCE-MRI: (+) focal early enhancement which corresponds to the suspicious finding on T2WI and/or DWI. ?? Combined PI-RADs: 5. Transition zone: T2: Homogeneous intermediate signal intensity (normal) . No focal lesions. Combined PI-RADs: 1. Extraprostatic disease: Seminal vesicle involvement:No Lymphadenopathy:No Sphincter involvement:No Bladder involvement:No Osseous metastases: No . Extraprostatic extension: No Other findings: The rectum is absent. Procedure Note Fabio Gomez MD - 09/26/2019 EXAMINATION: MRI PELVIS WWO (PROSTATE) CLINICAL HISTORY: Elevated PSA, low percent free and family history, norectum so can not have TRUS Bx, please evaluate for risk of prostate cancer. PSA level: 6.5 Date of sextant biopsy:N/A [place] score: N/A TECHNIQUE: Multiparametric MRI of the prostate prior to and following IV administration of 14 cc of Dotarem contrast. QUALITY: Meets PI-RADS technical criteria. COMPARISON: None FINDINGS: Prostate dimensions: 4.2 x 4.2 x 3.8cm. Estimated prostate volume: 29.22cc (X x Y x Z x 0.52) PSA density: 0.22 (PSA/prostate volume >0.15 susp, 0.25 highly susp) Peripheral zone: Lesion 1. Right mid gland and right base posterior and posterolateralperipheral zone. T2: Circumscribed, homogenous moderately hypointense focus confined toprostate, 3 x 1.4 cm axially, 1.2 cm craniocaudally. PI-RADs: 5. DWI: Focal markedly hypointense on ADC and markedly hyperintense onhigh b-value DWI; =1.5cm in greatest dimension or definite extraprostatic extension/invasive behavior. PI-RADs: 5. DCE-MRI: (+) focal early enhancement which corresponds to the suspiciousfinding on T2WI and/or DWI. Combined PI-RADs: 5. Transition zone: T2: Homogeneous intermediate signal intensity (normal) . No focal lesions. Combined PI-RADs: 1. Extraprostatic disease: Seminal vesicle involvement:No Lymphadenopathy:No Sphincter involvement:No Bladder involvement:No Osseous metastases: No . Extraprostatic extension: No Other findings: The rectum is absent. IMPRESSION Lesion 1 PZ: PI-RADS 5. Clinically significant cancer is highly likely emilie present. T2 location: axial series 8, image 21; sagittal series 4, image21. Segmented in UroNav. PI-RADS v2.1 Assessment Categories PI-RADS 1 -- Very low (clinically significant cancer is highly unlikely emilie present) PI-RADS 2 -- Low (clinically significant cancer is unlikely to bepresent) PI-RADS 3 -- Intermediate (the presence of clinically significant canceris equivocal) PI-RADS 4 -- High (clinically significant cancer is likely to bepresent) PI-RADS 5 -- Very high (clinically significant cancer is highly likely emilie present) Thank you for letting us participate in the care of this patient. Forquestions regarding this report, please contact the number below. Daniele Seals MD IMG MRI ORDERABLES documented in this encounter Visit Diagnoses Diagnosis Elevated PSA Elevated prostate specific antigen (PSA) Elevated PSA Elevated prostate specific antigen (PSA) documented in this encounter Care Teams Claims Auditor Relationship Specialty Start Date End Date Natty Mckinney MD [address] [place] [address] PCP - General 10/11/10 documented as of this encounter
--- OUTSIDE RECORDS SUMMARY | 2024-05-30 01:15 | XMS_ITS | Encounter Summary ---
Author Organization [facility] [place] [address] Care Team Providers Care [employer] Name Role Phone Natty Mckinney MD Primary Care Provider [phone] Encounter Details Date Type Department Care Team (Latest Contact Info) Description 09/08/2019 7:00 AM EDT - 09/08/2019 11:59 PM EDT Hospital Encounter [place] [address] Elevated PSA Discharge Disposition: Home Social History Tobacco Use Types Packs/Day Years Used Date Smoking Tobacco: Never Assessed Sex and Gender Information Value Date Recorded Sex Assigned at Not on file Gender Identity Not on file Sexual Orientation Not on file documented as of this encounter Medications at Time of Discharge Medication Sig Dispensed Refills Start Date End Date VENTOLIN HFA 90 mcg/actuation HFA Aerosol Inhaler inhale 1 to 2 puffs by mouth every 4 hours if needed for shortness of breath wheezing cough 0 04/23/2019 HYDROcodone-acetaminophe n (NORCO) 10-325 mg Tablet TK 2 TS PO TID WITH AN ADDITIONAL TABLET AT DINNER NEEDED 0 08/22/2019 methadone (DOLOPHINE) 10 mg Tablet 15 mg See Admin Instructions. At HS and middle of night. 0 08/22/2019 diphenoxylate-atropine (LOMOTIL) 2.5-0.025 mg per tablet 4 Tablet(s), PO, Three times daily 02/23/2010 documented as of this encounter Plan of Treatment Not on file documented as of this encounter Procedures Procedure Name Priority Date/Time Associated Diagnosis Comments HC PROSTATE SPECIFIC ANTIGEN STAT 09/08/2019 7:52 AM EDT Elevated PSA documented in this encounter Results * (ABNORMAL) PSA, total and free (09/08/2019 7:52 AM EDT) PSA Total (Ultrasensitiv e) 6.38(H) 0.00 - 4.00 ng/mL [facility] PSA Free 0.6 ng/mL [facility] PSA % Free 10 % [facility] Comment: Probability of finding REHABILITATION CLERK on needle biopsy by age in years: % fPSA ? 50-59yrs ? 60-69yrs ? >=70yrs <=10 ? 49.2 ? 57.5 ? 64.5 11-18 ?26.9 ? 33.9 ? 40.8 19-25 ?18.2 ? 23.9 ? 29.7 >25 ? 9.1 ? 12.2 ? 15.8 Blood specimen (specimen) 09/08/2019 7:52 AM EDT 09/08/2019 8:02 AM EDT Narrative Resulting Agency Comment Spec In Lab Daniele Seals MD CHEMISTRY ORDERABL ES [facility] [place] [address] documented in this encounter Visit Diagnoses Diagnosis Elevated PSA Elevated prostate specific antigen (PSA) documented in this encounter Care Teams [employer] Relationship Specialty Start Date End Date Natty Mckinney MD [address] [place] [address] PCP - General 10/11/10 documented as of this encounter
--- OUTSIDE RECORDS SUMMARY | 2024-05-30 01:15 | XMS_ITS | Encounter Summary ---
Author Organization [facility] Address [address] [place] [address] Care Team Providers Care Natural Resource Manager Name Role Phone Natty Mckinney MD Primary Care Provider [phone] Encounter Details Date Type Department Care Team (Late st Contact Info) Description 05/29/2023 Lab Requisition [facility] Pathology & Laboratory Medicine - [facility] [address] [place] [address] Outr Resulting Lab, Provider Social History Tobacco Use Types Packs/Day Years Used Date Smoking Tobacco: Every Day Cigarettes 1.5 48.5 Started: 1976 Smokeless Tobacco: Never Comments:Cut down Humiliation, Afraid, Rape, and Kick questionnair e Answer Date Recorded Within the last year, have y ou been afraid of your partner or ex-partner? No 01/06/2021 Within the last year, have y ou been humiliated or emotionally abused in other ways by your partner or ex-partner? No Within the last year, have y ou been kicked, hit, slapped, or otherwise physically hurt by your partner or ex-partner? No 01/06/2021 Within the last year, have y ou been raped or forced to have any kind of sexual activity by your partner or ex-partner? No 01/06/2021 Interpersonal Safety Answer Date Record ed Physically Hurt Never 10/24/2020 Verbally Threaten Not on file 10/24/2020 Sex and Gender Information Value Date Recorded Sex Assigned at Not on file Gender Identity Not on file Sexual Orientation Not on file documented as of this encounter Plan of Treatment Not on file documented as of this encounter Procedures Procedure Name Priority Date/Time Associated Diagnosis Comments PREALBUMIN Routine 05/28/2023 15:20 EDT documented in this encounter Results * PREALBUMIN (05/28/2023 15:20 EDT) Prealbumin 35 20 - 40 mg/dL 05/30/2023 9:28 EDT [facility] Blood VENOUS BLOOD / Unknown 05/28/2023 15:20 EDT 05/29/2023 15:29 EDT Provider Outr Resulting Lab CHEMISTRY & BLOOD GAS ORDERABLES [facility] [address] [place] [address] documented in this encounter Visit Diagnoses Not on filedocumented in this encounter Care Teams Natural Resource Manager Relationship Specialty Start Date End Date Natty Mckinney MD [address] [place] [address] PCP - General 09/29/15 documented as of this encounter
--- OUTSIDE RECORDS SUMMARY | 2024-05-30 01:15 | XMS_ITS | Encounter Summary ---
Author Organization [facility] [address] Care Team Providers Care Cnp Name Role Phone Natty Mckinney MD Primary Care Provider [phone] Reason for Visit * Reason Onset Date Comments Pre Procedure Call 08/28/2019 Encounter Details Date Type Department Care Team (Late st Contact Info) Description 08/28/2019 Telephone Hematology [place] [phone] Nicole Egale RN Pre Procedure Call Social History Tobacco Use Types Packs/Day Years Used Date Smoking Tobacco: Never Assessed Sex and Gender Information Value Date Recorded Sex Assigned at Not on file Gender Identity Not on file Sexual Orientation Not on file documented as of this encounter Miscellaneous Notes * Telephone Encounter - Nicole Eagle RN - [...] If unable to discontinue medication as per PCPpt to keep appointment and if biopsy warranted [...] labs faxed to Urology office (fax # [phone]). Patient Hx: Leaky heart valve, artifical heart [...] need for biopsy. Registration is at Hem/Onc manager mortgage on 3rd floor. Patient understands and is able to verbalize back to this nurse the above information. Patient agrees to the POC, knows when and how to call if need arises. documented in this encounter Plan of Treatment Not on file documented as of this encounter Results * (ABNORMAL) PSA, total and free (09/08/2019 7:52 AM EDT) PSA Total (Ultrasensitiv e) 6.38(H) 0.00 - 4.00 ng/mL [facility] PSA Free 0.6 ng/mL [facility] PSA % Free 10 % [facility] Comment: Probability of finding FOCUSING MACHINE OPERATOR on needle biopsy by age in years: [...] Lab Daniele Seals MD CHEMISTRY ORDERABL ES Performing Organization Address City/State/[facility] Co de Phone Number [facility] [place] [address] documented in this encounter Visit Diagnoses Diagnosis Elevated PSA Elevated prostate specific antigen (PSA) documented in this encounter Care Teams Cnp Relationship Specialty Start Date End Date Natty Mckinney MD [address] [place] [address] PCP - General 10/11/10 documented as of this encounter
--- OUTSIDE RECORDS SUMMARY | 2024-05-30 01:15 | XMS_ITS | Encounter Summary ---
Author Organization [facility] Address [address] [place] [address] Care Team Providers Care Associate Dean Of Women Name Role Phone Natty Mckinney MD Primary Care Provider [phone] Encounter Details Date Type Department Care Team (Late st Contact Info) Description 04/20/2023 Lab Requisition [facility] Pathology & Laboratory Medicine - [facility] [address] [place] [address] Outr Resulting Lab, Provider Social History Tobacco [...] Procedure Name Priority Date/Time Associated Diagnosis Comments FOLATE Routine 04/17/2023 10:10 EDT FERRITIN Routine 04/17/2023 10:10 EDT VITAMIN B12 Routine 04/17/2023 10:10 EDT documented in this encounter Results * FERRITIN (04/17/2023 10:10 EDT) Ferritin 55 22 - 322 ng/mL 04/20/2023 19:34 EDT [facility] Blood VENOUS BLOOD / Unknown 04/17/2023 10:10 EDT 04/20/2023 17:31 EDT Provider Outr Resulting Lab CHEMISTRY & BLOOD GAS ORDERABLES Performing Organization Address [facility] Co de Phone Number [facility] [address] [place] [address] * FOLATE (04/17/2023 10:10 EDT) Folate 14.1 See Note ng/mL 04/20/2023 19:36 EDT [facility] Comment: Reference Ranges for Folate: Deficient: ?< 3.4 ng/mL Indeterminate: ??3.4 - 5.4 ng/mL Normal: ? > 5.4 ng/mL The results of this assay can be falsely elevated due to the consumption of Biotin. Blood VENOUS BLOOD / Unknown 04/17/2023 10:10 EDT 04/20/2023 17:31 EDT Provider Outr Resulting Lab CHEMISTRY & BLOOD GAS ORDERABLES Performing Organization Address [facility]/ZIP Co de Phone Number [facility] [address] [place] [address] * VITAMIN B12 (04/17/2023 10:10 EDT) Vitamin B12 881 211 - 911 pg/mL 04/20/2023 19:36 EDT [facility] Blood VENOUS BLOOD / Unknown 04/17/2023 10:10 EDT 04/20/2023 17:31 EDT Provider Outr Resulting Lab CHEMISTRY & BLOOD GAS ORDERABLES [facility] [address] [place] [address] documented in this encounter Visit Diagnoses Not on filedocumented in this encounter Care Teams Associate Dean Of Women Relationship Specialty Start Date End Date Natty Mckinney MD [address] [place] [address] PCP - General 09/29/15 documented as of this encounter
--- OUTSIDE RECORDS SUMMARY | 2024-05-30 01:15 | XMS_ITS | Encounter Summary ---
Author Organization [facility] Address [address] [place] [address] Care Team Providers Care Foundry Worker General Name Role Phone Natty Mckinney MD Primary Care Provider [phone] Encounter Details Date Type Department Care Team (Late st Contact Info) Description 01/04/2021 Abstract [facility] - [facility] Rheumatology [address] [place] [address] Ashley Massey MD [address] [facility] [address] [place] [address] Social History Tobacco Use Types Packs/Day Years Used Date Smoking Tobacco: Every Day Cigarettes Started: 1976 Tobacco Cessation:Counseling Given: Yes Comments:Cut down Humiliation, Afraid, Rape, and Kick [...] as of this encounter Progress Notes * Tim Gee - 01/04/2021 1607 EST Abstraction done. Some areas unable to record. JMS documented in this encounter Plan of Treatment Not on file documented as of this encounter Visit Diagnoses Not on filedocumented in this encounter Historical Medications * This list may reflect changes made after this encounter. Medication Sig Dispensed Refills Start Date End Date Ostomy Supplies by misc (non-drug; combo route) route daily. Aquiles wafers part # 4019 Ostomy Supplies Use as directed daily. Aquiles ostomy pouches part #9543 methadone (DOLOPHINE) 10 mg tablet Take 10 mg by mouth 3 times daily as needed for Pain. aspirin chewable 81 mg tablet Take 81 mg by mouth daily. Delayed release tablet HYDROcodone-acetaminophen (NORCO) 10-325 mg tablet Take 1 Tab by mouth 3 times daily. Additional tab at dinner PRN diphenoxylate-atropine (LOMOTIL) 2.5-0.025 mg per tablet Take 20 mg by mouth 3 times daily. 4 tabs TID naloxone (NARCAN) 4 mg/actuation nasal spray 1 [place] by nasal route as needed for Opioid Reversal. ondansetron (ZOFRAN ODT) 4 mg disintegrating tablet Take 4 mg by mouth every 6 hours. PRN diclofenac sodium (VOLTAREN) 1 % gel Apply 1 % topically if needed for Pain. albuterol (VENTOLIN HFA) 90 mcg/actuation inhaler Inhale 180 mcg as directed every 4 hours. celecoxib (CELEBREX) 200 mg capsule Take 200 mg by mouth 2 times daily. cyanocobalamin, vitamin B-12, 1,000 mcg/mL drops Take 1,000 mcg by mouth every 4 weeks. nicotine (NICODERM CQ) 14 mg/[address] 14 mg onto the skin daily. nicotine polacrilex (NICORETTE) 4 mg gum Take 4 mg by mouth every 2 hours. added in this encounter Care Teams Foundry Worker General Relationship Specialty Start Date End Date Natty Mckinney MD [address] [place] [address] PCP - General 09/29/15 documented as of this encounter
--- OUTSIDE RECORDS SUMMARY | 2024-05-30 01:15 | XMS_ITS | Encounter Summary ---
Author Organization [facility] Address [address] [place] [address] Care Team Providers Care Skate Boarder Name Role Phone Unavailable Primary Care Provider Unavailabl e Encounter Details Date Type Department Care Team (Latest Contact Info) Description 04/20/2003 7:44 EDT - 04/20/2003 11:59 EDT Hospital Encounter [address] [address] Gold Chavez MD Discharge Disposition: Auto Discharge Social History Tobacco Use Types Packs/Day Years [...]
--- OUTSIDE RECORDS SUMMARY | 2024-05-30 01:15 | XMS_ITS | Encounter Summary ---
Author Organization [facility] Address [address] [place] [address] Care Team Providers Care Senior Producer Name Role Phone Natty Mckinney MD Primary Care Provider [phone] Encounter Details Date Type Department Care Team (Late st Contact Info) Description 07/30/2023 Lab Requisition [facility] Pathology & Laboratory Medicine - [facility] [address] [place] [address] Outr Resulting Lab, Provider Social History Tobacco [...] Priority Date/Time Associated Diagnosis Comments PREALBUMIN Routine 07/30/2023 14:20 EDT documented in this encounter Results * PREALBUMIN (07/30/2023 14:20 EDT) Prealbumin 26 20 - 40 mg/dL 07/31/2023 9:24 EDT [facility] Blood VENOUS BLOOD / Unknown 07/30/2023 14:20 EDT 07/30/2023 21:29 EDT Provider Outr Resulting Lab CHEMISTRY & BLOOD GAS ORDERABLES [facility] [address] [place] [address] documented in this encounter Visit Diagnoses Not on filedocumented in this encounter Care Teams Senior Producer Relationship Specialty Start Date End Date Natty Mckinney MD [address] [place] [address] PCP - General 09/29/15 documented as of this encounter
--- OUTSIDE RECORDS SUMMARY | 2024-05-30 01:15 | XMS_ITS | Encounter Summary ---
Author Organization [facility] [place] [address] Care Team Providers Care Rag Baler Name Role Phone Natty Mckinney MD Primary Care Provider Encounter Details Date Type Department Care Team (Latest Contact Info) Description 09/16/2019 Transcribe [place] [address] Natty Mckinney MD [address] [place], [place] [id number] Stomach ache; Epidemic vomiting syndrome; Ileostomy status Social History Tobacco Use Types Packs/Day Years Used Date Smoking Tobacco: Never Assessed Sex and Gender Information Value Date Recorded Sex Assigned at Not on file Gender Identity Not on file Sexual Orientation Not on file documented as of this encounter Plan of Treatment Not on file documented as of this encounter Results * Vitamin B1, whole blood (10/08/2019 7:14 AM EST) Vit B1 Lvl WB 177 70 - 180 nmol/L [facility] Comment: ADDITIONAL INFORMATION This test was developed and its performance characteristics determined by [facility] in a manner consistent with CLIA requirements. This test has not been cleared or approved by the U.S. Food and Drug Administration. Test Performed by: [facility] - [address] [address] Mobile Electronics Installer: Valente Romero M.D. Ph.D.; CLIA# [id number] Blood specimen (specimen) 10/08/2019 7:14 AM EST 10/08/2019 8:35 AM EST Narrative Resulting Agency Comment Spec In Lab Natty Mckinney MD CHEMISTRY ORDERABLES Performing Organization Address City/[facility] Co de Phone Number [facility] [place] [address] * Sedimentation rate (10/08/2019 7:14 AM EST) Sed Rate 5 0 - 15 mm/hr [facility] Blood specimen (specimen) 10/08/2019 7:14 AM EST 10/08/2019 7:27 AM EST Narrative Resulting Agency Comment Spec In Lab Natty Mckinney MD HEMATOLOGY ORDERABLE S Performing Organization Address [facility] Phone Number [facility] [place] [address] * CK (10/08/2019 7:14 AM EST) CK, Total 59 0 - 200 unit/L [facility] Blood specimen (specimen) 10/08/2019 7:14 AM EST 10/08/2019 7:27 AM EST Narrative Resulting Agency Comment Spec In Lab Natty Mckinney MD CHEMISTRY ORDERABLES Performing Organization Address [facility] Co de Phone Number [facility] [place] [address] * Magnesium (10/08/2019 7:14 AM EST) Magnesium 0.87 0.69 - 1.07 mmol/L [facility] Blood specimen (specimen) 10/08/2019 7:14 AM EST 10/08/2019 7:27 AM EST Narrative Resulting Agency Comment Spec In Lab Natty Mckinney MD CHEMISTRY ORDERABLES Performing Organization Address City/[facility] Co de Phone Number [facility] [place] [address] * (ABNORMAL) Vitamin A (10/08/2019 7:14 AM EST) Vitamin A 87.6(H) 32.5 - 78.0 mcg/dL [facility] Comment: ADDITIONAL INFORMATION This test was developed and its performance characteristics determined by [facility] in a manner consistent with CLIA requirements. This test has not been cleared or approved by the U.S. Food and Drug Administration. Test Performed by: [facility] [place] [address] [employer] Installer: Valente Romero M.D. Ph.D.; CLIA# [id number] Blood specimen (specimen) 10/08/2019 7:14 AM EST 10/08/2019 10:36 AM EST Narrative Resulting Agency Comment Spec In Lab Natty Mckinney MD CHEMISTRY ORDERABLES [facility] [place] [address] documented in this encounter Visit Diagnoses Diagnosis Stomach ache Dyspepsia and other specified disorders of function of stomach Epidemic vomiting syndrome Ileostomy status documented in this encounter Care Teams Rag Baler Relationship Specialty Start Date End Date Natty Mckinney MD [address] [place] [address] PCP - General 10/11/10 documented as of this encounter
--- OUTSIDE RECORDS SUMMARY | 2024-05-30 01:15 | XMS_ITS | Encounter Summary ---
Author Organization [facility] Address [address] [place] [address] Care Team Providers Care Ssas Developer Name Role Phone Natty Mckinney MD Primary Care Provider [phone] Encounter Details Date Type Department Care Team (Late st Contact Info) Description 04/17/2020 Lab Requisition [facility] Pathology & Laboratory Medicine - [address] [id number] Outr Resulting Lab, Provider Social History Tobacco [...] Procedure Name Priority Date/Time Associated Diagnosis Comments PSA TOTAL, DIAGNOSTIC Routine 04/16/2020 10:35 EDT documented in this encounter Results * PSA TOTAL, DIAGNOSTIC (04/16/2020 10:35 EDT) PSA 1.9 0.0 - 3.5 ng/mL 04/19/2020 10:28 EDT [facility] Blood VENOUS BLOOD / Unknown 04/16/2020 10:35 EDT 04/18/2020 16:47 EDT Narrative [facility] - 04/19/2020 10:28 EDT NOTE: Serum PSA concentration should not be interpreted as absolute evidence for the presence or absence of malignant disease. Assayed on [employer] XPT using chemiluminescent technology.??Values obtained by using different assay methods cannot be used interchangeably. Provider Outr Resulting Lab CHEMISTRY & BLOOD GAS ORDERABLES [facility] [address] [place] [address] documented in this encounter Visit Diagnoses Not on filedocumented in this encounter Care Teams Ssas Developer Relationship Specialty Start Date End Date Natty Mckinney MD [address] [place] [address] PCP - General 09/29/15 documented as of this encounter
--- OUTSIDE RECORDS SUMMARY | 2024-05-30 01:15 | XMS_ITS | Encounter Summary ---
Author Organization [facility] Address [address] [place] [address] Care Team Providers Care Color Control Supervisor Name Role Phone Natty Mckinney MD Primary Care Provider [phone] Encounter Details Date Type Department Care Team (Late st Contact Info) Description 06/25/2023 Lab Requisition [facility] Pathology & Laboratory Medicine - [facility] [address] [place] [address] Outr Resulting Lab, Provider Social History Tobacco [...] Priority Date/Time Associated Diagnosis Comments PREALBUMIN Routine 06/25/2023 11:30 EDT documented in this encounter Results * PREALBUMIN (06/25/2023 11:30 EDT) Prealbumin 29 20 - 40 mg/dL 06/26/2023 9:40 EDT [facility] Blood VENOUS BLOOD / Unknown 06/25/2023 11:30 EDT 06/25/2023 21:21 EDT Provider Outr Resulting Lab CHEMISTRY & BLOOD GAS ORDERABLES [facility] [address] [place] [address] documented in this encounter Visit Diagnoses Not on filedocumented in this encounter Care Teams Color Control Supervisor Relationship Specialty Start Date End Date Natty Mckinney MD [address] [place] [address] PCP - General 09/29/15 documented as of this encounter
--- OUTSIDE RECORDS SUMMARY | 2024-05-30 01:15 | XMS_ITS | Encounter Summary ---
Author Organization [facility] [place] [address] Care Team Providers Care Voip Engineer Name Role Phone Natty Mckinney MD Primary Care Provider [phone] Reason for Referral * Diagnostic Test (Routine) - Closed Specialty Diagnoses / Procedures Referred By Contac t Referred To Contact Radiology Diagnoses Elevated PSA Procedures MRI Pelvis wwo (Prostate) Daniele Seals MD [facility] [place] [address] [place] [address] Referral ID Status Reason Start Date Expiration Date V isits Requested Visits Authorized [id number] Closed Specialty Service Requested 09/08/2019 09/07/2020 1 1 Reason for Visit * Diagnostic Test (Routine) - Closed Specialty Diagnoses / Procedures Referred By Contac t Referred To Contact Radiology Diagnoses Elevated PSA Procedures MRI Pelvis wwo (Prostate) Daniele Seals MD [facility] [place] [place] [address] [place] [address] Referral ID Status Reason Start Date Expiration Date V isits Requested Visits Authorized [id number] Closed Specialty Service Requested 09/08/2019 09/07/2020 1 1 Encounter Details Date Type Department Care Team (Latest Contact Info) Description 09/23/2019 4:27 PM EST - 09/23/2019 11:59 PM EST Hospital Encounter MRI at [facility] [place] [place] [address] Daniele Seals MD [facility] [place] [address] Elevated PSA Discharge Disposition: Home Social History [...] Procedure Name Priority Date/Time Associated Diagnosis Comments MRI PELVIS WWO (PROSTATE) Routine 09/23/2019 6:13 PM EST Elevated PSA documented in this encounter Results * MRI Pelvis wwo [...] PSA level: 6.5 Date of sextant biopsy:N/A Delmar score: N/A TECHNIQUE: Multiparametric MRI of the [...] Dose Rate Site gadoterate meglumine (DOTAREM) 0.5 mmol/mL (376.9 mg/mL) injection 0-100 mL 0-100 mL, Intravenous, ONCE PRN, 1 dose, Starting on Sun09/23/19 at 1814, Until Sun09/23/19 at 1800, Per Protocol, Radiology Contrast, Routine Given 09/23/2019 6:00 PM EST 14 mLs documented in this encounter Care Teams Voip Engineer Relationship Specialty Start Date End Date Natty Mckinney MD [address] [place] [address] PCP - General 10/11/10 documented as of this encounter
--- OUTSIDE RECORDS SUMMARY | 2024-05-30 01:15 | XMS_ITS | Encounter Summary ---
Author Organization [facility] Address [address] [place] [address] Care Team Providers Care Human Resource Intern Name Role Phone Natty Mckinney MD Primary Care Provider [phone] Encounter Details Date Type Department Care Team (Late st Contact Info) Description 09/24/2023 Lab Requisition [facility] Pathology & Laboratory Medicine - [facility] [address] [place] [address] Outr Resulting Lab, Provider Social History Tobacco [...] Priority Date/Time Associated Diagnosis Comments PREALBUMIN Routine 09/24/2023 13:25 EST documented in this encounter Results * PREALBUMIN (09/24/2023 13:25 EST) Prealbumin 37 20 - 40 mg/dL 09/25/2023 10:50 EST [facility] Blood VENOUS BLOOD / Unknown 09/24/2023 13:25 EST 09/24/2023 22:01 EST Provider Outr Resulting Lab CHEMISTRY & BLOOD GAS ORDERABLES [facility] [address] [place] [address] documented in this encounter Visit Diagnoses Not on filedocumented in this encounter Care Teams Human Resource Intern Relationship Specialty Start Date End Date Natty Mckinney MD [address] [place] [address] PCP - General 09/29/15 documented as of this encounter
--- OUTSIDE RECORDS SUMMARY | 2024-05-30 01:15 | XMS_ITS | Encounter Summary ---
Author Organization [facility] Address [address] [place] [address] Care Team Providers Care Bar And Filler Assembler Name Role Phone Unavailable Primary Care Provider Unavailabl e Encounter Details Date Type Department Care Team (Latest Contact Info) Description 03/09/2003 7:16 EDT - 03/09/2003 11:59 EDT Hospital Encounter [address] [address] Gold Chavez MD Discharge Disposition: Auto Discharge [...]
--- OUTSIDE RECORDS SUMMARY | 2024-05-30 01:15 | XMS_ITS | Encounter Summary ---
Author Organization [facility] Address [address] [place] [address] Care Team Providers Care Top Knitter Name Role Phone Natty Mckinney MD Primary Care Provider [phone] Encounter Details Date Type Department Care Team (Late st Contact Info) Description 03/24/[address] [facility] Pathology & Laboratory Medicine - [facility] [address] [place] [address] Outr Resulting Lab, Provider Social History Tobacco [...] Priority Date/Time Associated Diagnosis Comments PREALBUMIN Routine 03/24/2024 12:55 EDT documented in this encounter Results * PREALBUMIN (03/24/2024 12:55 EDT) Prealbumin 27 20 - 40 mg/dL 03/25/2024 10:29 EDT [facility] Blood VENOUS BLOOD / Unknown 03/24/2024 12:55 EDT 03/24/2024 22:21 EDT Provider Outr Resulting Lab CHEMISTRY & BLOOD GAS ORDERABLES [facility] [address] [place], [place] [id number] documented in this encounter Visit Diagnoses Not on filedocumented in this encounter Care Teams Top Knitter Relationship Specialty Start Date End Date Natty Mckinney MD [address] [place] [address] PCP - General 09/29/15 documented as of this encounter
--- OUTSIDE RECORDS SUMMARY | 2024-05-30 01:15 | XMS_ITS | Encounter Summary ---
Author Organization [facility] Address [address] [place] [address] Care Team Providers Care Dispenser Operator Name Role Phone Natty Mckinney MD Primary Care Provider [phone] Encounter Details Date Type Department Care Team (Late st Contact Info) Description 04/21/2024 Lab Requisition [facility] Pathology & Laboratory Medicine - [facility] [address] [place] [address] Outr Resulting Lab, Provider Social History Tobacco [...] Priority Date/Time Associated Diagnosis Comments PREALBUMIN Routine 04/21/2024 10:35 EDT documented in this encounter Results * PREALBUMIN (04/21/2024 10:35 EDT) Prealbumin 29 20 - 40 mg/dL 04/22/2024 10:27 EDT [facility] Blood VENOUS BLOOD / Unknown 04/21/2024 10:35 EDT 04/21/2024 16:59 EDT Provider Outr Resulting Lab CHEMISTRY & BLOOD GAS ORDERABLES [facility] [address] [place], [place] [id number] documented in this encounter Visit Diagnoses Not on filedocumented in this encounter Care Teams Dispenser Operator Relationship Specialty Start Date End Date Natty Mckinnye MD [address] [place] [address] PCP - General 09/29/15 documented as of this encounter
--- OUTSIDE RECORDS SUMMARY | 2024-05-30 01:15 | XMS_ITS | Encounter Summary ---
Author Organization [facility] Address [facility] [place] [address] Care Team Providers Care Yard Foreman Name Role Phone Natty Mckinney MD Primary Care Provider [phone] Encounter Details Date Type Department Care Team (Late st Contact Info) Description 10/01/2019 [place] [address] [facility] [place] [address] Social History Tobacco Use Types Packs/Day Years Used Date Smoking Tobacco: Never Assessed Sex and Gender Information Value Date Recorded Sex Assigned at Not on file Gender Identity Not on file Sexual Orientation Not on file documented as of this encounter Miscellaneous Notes * Telephone Encounter - Arun Edwards - 10/01/2019 1:03 PM EST Spoke with pt to inform him of the CT guided prostate biopsy on 10/08/19, with arrival at 7:30am. I did also inform him that a nurse will be calling him on Sunday with some additional information. documented in this encounter Plan of Treatment Not on file documented as of this encounter Visit Diagnoses Not on filedocumented in this encounter Care Teams Yard Foreman Relationship Specialty Start Date End Date Natty Mckinney MD [address] [place] [address] PCP - General 10/11/10 documented as of this encounter
--- OUTSIDE RECORDS SUMMARY | 2024-05-30 01:15 | XMS_ITS | Encounter Summary ---
Author Organization [facility] Address [address] [place] [address] Care Team Providers Care Upper Marker Name Role Phone Natty Mckinney MD Primary Care Provider [phone] Encounter Details Date Type Department Care Team (Late st Contact Info) Description 06/08/2021 Lab Requisition [facility] Pathology & Laboratory Medicine - [facility] [address] [place] [address] Outr Resulting Lab, Provider Social History Tobacco [...] Associated Diagnosis Comments PSA TOTAL, DIAGNOSTIC Routine 06/07/2021 14:38 EDT documented in this encounter Results * PSA TOTAL, DIAGNOSTIC (06/07/2021 14:38 EDT) PSA 1.7 0.0 - 3.5 ng/mL 06/08/2021 18:11 EDT [facility] Blood VENOUS BLOOD / Unknown 06/07/2021 14:38 EDT 06/08/2021 16:38 EDT Narrative [facility] - 06/08/2021 18:11 EDT NOTE: Serum PSA concentration should not be interpreted as absolute evidence for the presence or absence of malignant disease. Assayed on [employer] XPT using chemiluminescent technology.??Values obtained by using different assay methods cannot be used interchangeably. Provider Outr Resulting Lab CHEMISTRY & BLOOD GAS ORDERABLES [facility] [address] [place] [address] documented in this encounter Visit Diagnoses Not on filedocumented in this encounter Care Teams Upper Marker Relationship Specialty Start Date End Date Natty Mckinney MD [address] [place] [address] PCP - General 09/29/15 documented as of this encounter
--- OUTSIDE RECORDS SUMMARY | 2024-05-30 01:15 | XMS_ITS | Encounter Summary ---
Author Organization [facility] Address [address] [place] [address] Care Team Providers Care Inventory Control Coordinator Name Role Phone Unavailable Primary Care Provider Adi e Encounter Details Date Type Department Care Team (Late st Contact Info) Description 03/24/2003 9:32 EDT Hospital Encounter [address] [address] Gold Chavez MD Social History Tobacco Use Types Packs/Day Years [...]
--- OUTSIDE RECORDS SUMMARY | 2024-05-30 01:15 | XMS_ITS | Encounter Summary ---
Author Organization [facility] Address [address] [place] [address] Care Team Providers Care Addressing Machine Operator Name Role Phone Natty Mckinney MD Primary Care Provider [phone] Encounter Details Date Type Department Care Team (Late st Contact Info) Description 08/27/2023 Lab Requisition [facility] Pathology & Laboratory Medicine - [facility] [address] [place] [address] Outr Resulting Lab, Provider Social History Tobacco [...] Priority Date/Time Associated Diagnosis Comments PREALBUMIN Routine 08/27/2023 13:00 EDT documented in this encounter Results * PREALBUMIN (08/27/2023 13:00 EDT) Prealbumin 31 20 - 40 mg/dL 08/28/2023 9:34 EDT [facility] Blood VENOUS BLOOD / Unknown 08/27/2023 13:00 EDT 08/27/2023 21:45 EDT Provider Outr Resulting Lab CHEMISTRY & BLOOD GAS ORDERABLES [facility] [address] [place] [address] documented in this encounter Visit Diagnoses Not on filedocumented in this encounter Care Teams Addressing Machine Operator Relationship Specialty Start Date End Date Natty Mckinney MD [address] [place] [address] PCP - General 09/29/15 documented as of this encounter
--- OUTSIDE RECORDS SUMMARY | 2024-05-30 01:15 | XMS_ITS | Encounter Summary ---
Author Organization [facility] [place] [address] Care Team Providers Care Engine Builder Name Role Phone Natty Mckinney MD Primary Care Provider [phone] Reason for Referral * Diagnostic Test (Routine) - Closed Specialty Diagnoses / Procedures Referred By Claire guerrero Referred To Contact Radiology Diagnoses Elevated PSA Procedures CT Guided Biopsy Other Daniele Seals MD [facility] [place] [address] [facility] [place] [address] Referral ID Status Reason Start Date Expiration Date V isits Requested Visits Authorized [id number] Closed Specialty Service Requested 09/26/2019 09/25/2020 1 1 Encounter Details Date Type Department Care Team (Late st Contact Info) Description 09/26/2019 [place] [address] Daniele Seals MD [facility] [place] [address] Elevated PSA Social History Tobacco Use Types Packs/Day Years Used Date Smoking Tobacco: Never Assessed Sex and Gender Information Value Date Recorded Sex Assigned at Not on file Gender Identity Not on file Sexual Orientation Not on file documented as of this encounter Progress Notes * Daniele Seals MD - 09/26/2019 2:28 PM EST I called with mpMRI results that show a large, 3cm P5 lesion in the right mid / base PZ. I suspect this lesion is large enough to adequately sample via CT guided biopsy but I will call radiology to take a look. If not I offered to attempt ultrasound guided TP biopsy or refer him to [place] where there are a few folks doing real time MR guided biopsies. I will call him back after I speak with radiology. Addendum: Reviewed images with Dr. Mendes, will plan for CT guided prostate biopsy. documented in this encounter Plan of Treatment Not on file documented as of this encounter Results * CT Guided Biopsy Other (10/08/2019 10:11 AM EST) Anatomical Region Laterality Modality Computed Tomogra phy Narrative 10/08/2019 11:14 AM EST IR PROCEDURE NOTE: ?? CT-guided prostate biopsy ? Indication: prostate mass, elevated PSA s/p APR (no rectum, can not have standard TRUS biopsy) ??foud to have elevated PSA and Large PIRAD 5 lesion in right peripheral zone (base to mid gland) on prostate MRI please biopsy. Technique: After discussing risks (including infection and hemorrhage), and benefits, patient consented to the procedure. ??Due to the painful nature of the procedure, split doses of fentanyl and versed were administered by the IR nurse during continuous monitoring of pulse, blood pressure and oxygen saturation. Prostate was localized with CT, patient prone. ??[place], mid and basal sites located on right and left. After sterile preparation of the overlying skin, 7 cc 1% lidocaine SQ was administered for anesthesia, and a 17 ga needle guide was advanced under CT guidance into the mass. The 18 ga biopsy gun was advanced coaxially and specimen obtained x 1-2 at each site and submitted individually labelled ??to pathology. ??[place] were removed and hemostasis obtained by manual compression. Patient tolerated the procedure well. ??There were no immediate complications. Contrast : ??0. ?EBL : ??2 cc. Findings: ??Specimens obtained from medial and lateral positions at apex, mid, and base of right and left lobes of prostate. (12 sites) Impression: Technically successful prostate biopsy. I, Dr. Mendes, was present throughout the procedure. I was present during the intraservice time as documented by the IR Nurse. ?? Daniele Seals MD IMG CT ORDERABLES documented in this encounter Visit Diagnoses Diagnosis Elevated PSA Elevated prostate specific antigen (PSA) Elevated PSA Elevated prostate specific antigen (PSA) documented in this encounter Care Teams Engine Builder Relationship Specialty Start Date End Date Natty Mckinney MD [address] [place] [address] PCP - General 10/11/10 documented as of this encounter
--- OUTSIDE RECORDS SUMMARY | 2024-05-30 01:15 | XMS_ITS | Encounter Summary ---
Author Organization [facility] Address [address] [place] [address] Care Team Providers Care Asian Studies Program Chair Name Role Phone Natty Mckinney MD Primary Care Provider [phone] Encounter Details Date Type Department Care Team (Late st Contact Info) Description 04/12/2023 Lab Requisition [facility] Pathology & Laboratory Medicine - [facility] [address] [place] [address] Outr Resulting Lab, Provider Social History Tobacco [...] Priority Date/Time Associated Diagnosis Comments PREALBUMIN Routine 04/12/2023 10:47 EDT documented in this encounter Results * PREALBUMIN (04/12/2023 10:47 EDT) Prealbumin 26 20 - 40 mg/dL 04/13/2023 9:57 EDT [facility] Blood VENOUS BLOOD / Unknown 04/12/2023 10:47 EDT 04/12/2023 21:05 EDT Provider Outr Resulting Lab CHEMISTRY & BLOOD GAS ORDERABLES [facility] [address] [place] [address] documented in this encounter Visit Diagnoses Not on filedocumented in this encounter Care Teams Asian Studies Program Chair Relationship Specialty Start Date End Date Natty Mckinney MD [address] [place] [address] PCP - General 09/29/15 documented as of this encounter
--- OUTSIDE RECORDS SUMMARY | 2024-05-30 01:15 | XMS_ITS | Encounter Summary ---
Author Organization [facility] [place] [address] Care Team Providers Care Nuclear Reactor Engineer Name Role Phone Natty Mckinney MD Primary Care Provider [phone] Encounter Details Date Type Department Care Team (Late st Contact Info) Description 06/10/2009 [place] [id number] Sidra Omalley MD GASTROENTEROLOGY Social History Tobacco Use Types Packs/Day Years Used Date Smoking Tobacco: Never Assessed Sex and Gender Information Value Date Recorded Sex Assigned at Not on file Gender Identity Not on file Sexual Orientation Not on file documented as of this encounter Plan of Treatment Not on file documented as of this encounter Procedures Procedure Name Priority Date/Time Associated Diagnosis Comments SURGICAL PATHOLOGY REPORT Routine 06/10/2009 10:34 AM EDT documented in this encounter Results * Surgical Pathology Report (06/10/2009 10:34 AM EDT) Surgical Pathology Report [id number] ? Location: 4T The signing pathologist has (i) examined the relevant preparation(s) for the specimen(s) and (ii) rendered or confirmed the diagnosis(es). . ?Pathology Surgical Pathology Final Report Clinical Information Specimen Submitted: A - Mucosal biopsies; jejunum B - Mucosal biopsies; stomach Clinical History: 44-yr-old with Crohn's S/P colectomy with abdominal pain Clinical Diagnosis: Crohn's Gross Description A - Labeled/Fixativ e: Jejunum, formalin. Qty/Size/Weight : ?Single, 0.5 x 0.3 x 0.2 cm. Tissue Description: ?? Soft, blackman tissue. Sections/Proces sing: ??(T1) B - Labeled/Fixativ e: Stomach, formalin. Qty/Size/Weight : ?Three, averaging 0.3 x 0.2 x 0.2 cm. Tissue Description: ?? Soft, blackman tissues. Sections/Proces sing: ??(T1) ??aje/SNS Microscopic Description Slides reviewed, microscopic description not recorded. Diagnosis A - Jejunum, biopsy: ?Small intestinal mucosa with no diagnostic abnormality recognized. B - Stomach, biopsy: ?Gastric body/fundic type mucosa with no diagnostic abnormality ?recognized. CR-0 06/12/09 [place] 06/12/09 Verified by: ? Rodney Lam MD ?Pathologist ?(Electronic Signature) The attending pathologist whose signature appears on this report has reviewed all diagnostic slides and has edited the gross and/or microscopic portion of the report in rendering the final pathologic diagnosis. JULIANN ALSTON 06/10/2009 10:3 4 AM EDT L Dima Omalley MD PATHOLOGY/CYTOLOGY O RDERABLES JULIANN ALSTON documented in this encounter Visit Diagnoses Not on filedocumented in this encounter Care Teams Nuclear Reactor Engineer Relationship Specialty Start Date End Date Natty Mckinney MD [address] [place] [address] PCP - General 10/11/10 documented as of this encounter
--- OUTSIDE RECORDS SUMMARY | 2024-05-30 01:15 | XMS_ITS | Encounter Summary ---
Author Organization [facility] Address [address] [place] [address] Care Team Providers Care High Voltage Electrician Name Role Phone Natty Mckinnye MD Primary Care Provider [phone] Encounter Details Date Type Department Care Team (Late st Contact Info) Description 04/09/[address] [facility] Pathology & Laboratory Medicine - [facility] [address] [place] [address] Outr Resulting Lab, Provider Social History Tobacco [...] Priority Date/Time Associated Diagnosis Comments PREALBUMIN Routine 04/09/2023 10:46 EDT documented in this encounter Results * PREALBUMIN (04/09/2023 10:46 EDT) Prealbumin 29 20 - 40 mg/dL 04/10/2023 9:40 EDT [facility] Blood VENOUS BLOOD / Unknown 04/09/2023 10:46 EDT 04/09/2023 21:10 EDT Provider Outr Resulting Lab CHEMISTRY & BLOOD GAS ORDERABLES [facility] [address] [place] [address] documented in this encounter Visit Diagnoses Not on filedocumented in this encounter Care Teams High Voltage Electrician Relationship Specialty Start Date End Date Natty Mckinney MD [address] [place] [address] PCP - General 09/29/15 documented as of this encounter
--- OUTSIDE RECORDS SUMMARY | 2024-05-30 01:15 | XMS_ITS | Encounter Summary ---
Author Organization [facility] Address [facility] [place] [address] Care Team Providers Care Toter Name Role Phone Natty Mckinney MD Primary Care Provider Encounter Details Date Type Department Care Team (Late st Contact Info) Description 09/26/2019 [place] [address] Daniele Seals MD [facility] [place] [address] Social History Tobacco Use Types Packs/Day Years Used Date Smoking Tobacco: Never Assessed Sex and Gender Information Value Date Recorded Sex Assigned at Not on file Gender Identity Not on file Sexual Orientation Not on file documented as of this encounter Miscellaneous Notes * Telephone Encounter - Isha Salcido - 09/26/2019 1:57 PM EST Patient called looking for MRI results. He can be reached at [phone]. He is aware that Dr. Seals is not in clinic today, but states Dr. Seals can just leave a voicemail. documented in this encounter Plan of Treatment Not on file documented as of this encounter Visit Diagnoses Not on filedocumented in this encounter Care Teams Toter Relationship Specialty Start Date End Date Natty Mckinney MD [address] [place] [address] PCP - General 10/11/10 documented as of this encounter
--- OUTSIDE RECORDS SUMMARY | 2024-05-30 01:15 | XMS_ITS | Clinical Summary ---
Author Organization [facility] Address [address] [place] [address] Care Team Providers Care Interactive Media Designer Name Role Phone Natty Mckinney MD Primary Care Provider [phone] Allergies No known active allergies Medications Medication Sig Dispensed Refills Start Date End Date Status nicotine polacrilex (NICORETTE) 4 mg gum Take 4 mg by mouth every 2 hours. Active nicotine (NICODERM CQ) 14 mg/[address] 14 mg onto the skin daily. Active cyanocobalamin, vitamin B-12, 1,000 mcg/mL drops Take 1,000 mcg by mouth every 4 weeks. Active celecoxib (CELEBREX) 200 mg capsule Take 200 mg by mouth 2 times daily. Active albuterol (VENTOLIN HFA) 90 mcg/actuation inhaler Inhale 180 mcg as directed every 4 hours. Active diclofenac sodium (VOLTAREN) 1 % gel Apply 1 % topically if needed for Pain. Active ondansetron (ZOFRAN ODT) 4 mg disintegrating tablet Take 4 mg by mouth every 6 hours. PRN Active naloxone (NARCAN) 4 mg/actuation nasal spray 1 [place] by nasal route as needed for Opioid Reversal. Active diphenoxylate-atropine (LOMOTIL) 2.5-0.025 mg per tablet Take 20 mg by mouth 3 times daily. 4 tabs TID Active HYDROcodone-acetaminop hen (NORCO) 10-325 mg tablet Take 1 Tab by mouth 3 times daily. Additional tab at dinner PRN Active aspirin chewable 81 mg tablet Take 81 mg by mouth daily. Delayed release tablet Active methadone (DOLOPHINE) 10 mg tablet Take 10 mg by mouth 3 times daily as needed for Pain. Active Ostomy Supplies Use as directed daily. Aquiles ostomy pouches part #8817 Active Ostomy Supplies by [facility] (non-drug; combo route) route daily. [place] wafers part # 8732 Active Active Problems Problem Noted Date Diagnosed Date Vitamin B12 deficiency 01/05/2021 Malaise and [...] 01/05/2021 Pain in joint 01/05/2021 Other complications followin g infusion, transfusion and therapeutic injection, subsequent encounter 01/05/2021 Syncope 01/05/2021 Ileostomy status ([facility]) 01/05/2021 Chronic abdominal pain 01/05/2021 Crohn's disease ([facility]) 01/05/2021 Encounters Date Type Department Care Team Description 04/21/2024 Lab Requisition [facility] Pathology & Laboratory Medicine [address] [address] Outr Resulting Lab, Provider 03/24/[address] [facility] Pathology & Laboratory Medicine [address] [address] Outr Resulting Lab, Provider from Last 3 Months Surgical History Surgery Date Site/Laterality Comments SMALL INTESTINE SURGERY ileostomy 1988 due to intractable crohn's flare Medical History Medical History Date Comments Crohn disease ([facility]) Prostate CA ([facility]) radiation [facility] Knee osteoarthritis Family History Medical History Relation Comments Crohn's Disease Son Relation Status Comments Son Social History Tobacco Use Types Packs/Day Years Used Date Smoking Tobacco: Every Day Cigarettes 1.5 48.5 Started: 1975 Smokeless Tobacco: Never Tobacco Cessation:Counseling Given: Yes Comments:Cut down Humiliation, [...] on file Sexual Orientation Not on file Obstetrics History Last Filed Vital Signs Vital Sign Reading [...] Last Done Comments Hepatitis C Screen 1964 Pneumococcal Immunization (1 of 2 - PCV) 1970 COVID-19 Vaccine ( - 2022-24 season) 2023 RSV Immunization ( o r 60+ Years) (1 - 1-dose 60+ series) 2024 Procedures Procedure Name Priority Date/Time Associated Diagnosis Comments PREALBUMIN Routine 04/21/2024 10:35 EDT PREALBUMIN Routine 03/24/2024 12:55 EDT from Last 3 Months Results * PREALBUMIN (04/21/2024 10:35 EDT) Only the most recent of2 resultswithin the time period is included. Prealbumin 29 20 - 40 mg/dL 04/22/2024 10:27 EDT [facility] Blood VENOUS BLOOD / Unknown 04/21/2024 10:35 EDT 04/21/2024 16:59 EDT Provider Outr Resulting Lab CHEMISTRY & BLOOD GAS ORDERABLES [facility] [address] [place] [address] from Last 3 Months Care Teams Interactive Media Designer Relationship Specialty Start Date End Date Natty Mckinney MD [address] [place] [address] PCP - General 09/29/15
--- OUTSIDE RECORDS SUMMARY | 2024-05-30 01:15 | XMS_ITS | Referral Summary ---
Author Organization [facility] Address [address] [place] [address] Care Team Providers Care Ends Down Checker Name Role Phone Natty Mckinney MD Primary Care Provider [phone] Encounters Date Type Department Care Team Description 04/21/2024 Lab Requisition [facility] Pathology & Laboratory [address] [address] Outr Resulting Lab, Provider 03/24/2024 Lab Requisition [facility] Pathology & Laboratory [address] [address] Outr Resulting Lab, Provider from Last 3 Months Allergies No known active allergies Medications Medication [...] naloxone (NARCAN) 4 mg/actuation nasal spray 1 [place] by nasal route as needed for Opioid [...] pouches part #8817 Active Ostomy Supplies by misc (non-drug; combo route) route daily. [place] wafers part # 8732 Active Active Problems Problem Noted Date Diagnosed Date Vitamin B12 deficiency 01/05/2021 Malaise and fatigue 01/05/2021 Prostate cancer ([facility]) 01/05/2021 Pain of knee joint on movement [...] subsequent encounter 01/05/2021 Syncope 01/05/2021 Ileostomy status ([facility]) 01/05/2021 Chronic abdominal pain 01/05/2021 Crohn's disease ([facility]) 01/05/2021 Social History Tobacco Use Types Packs/Day Years [...] 19.9 01/06/2021 1407 EST Plan of Treatment Not on file Procedures Procedure Name Priority Date/Time Associated Diagnosis Comments PREALBUMIN Routine 04/21/2024 10:35 EDT PREALBUMIN Routine 03/24/2024 12:55 EDT from Last 3 Months Results * PREALBUMIN (04/21/2024 10:35 EDT) Only the most recent of2 resultswithin the time period is included. Prealbumin 29 20 - 40 mg/dL 04/22/2024 10:27 EDT [facility] Blood VENOUS BLOOD / Unknown 04/21/2024 10:35 EDT 04/21/2024 16:59 EDT Provider Outr Resulting Lab CHEMISTRY & BLOOD GAS ORDERABLES [facility] [address] [place] [address] from Last 3 Months Care Teams Ends Down Checker Relationship Specialty Start Date End Date Natty Mckinney MD [address] [place] [address] PCP - General 09/29/15
--- OUTSIDE RECORDS SUMMARY | 2024-05-30 01:15 | XMS_ITS | Encounter Summary ---
Author Organization [facility] Address [address] [place] [address] Care Team Providers Care It Solutions Sales Consultant Name Role Phone Natty Mckinney MD Primary Care Provider [phone] Encounter Details Date Type Department Care Team (Late st Contact Info) Description 01/28/2024 Lab Requisition [facility] Pathology & Laboratory Medicine - [facility] [address] [place] [address] Outr Resulting Lab, Provider Social History Tobacco [...] Priority Date/Time Associated Diagnosis Comments PREALBUMIN Routine 01/28/2024 12:55 EDT documented in this encounter Results * PREALBUMIN (01/28/2024 12:55 EDT) Prealbumin 31 20 - 40 mg/dL 01/29/2024 17:02 EDT [facility] Blood VENOUS BLOOD / Unknown 01/28/2024 12:55 EDT 01/28/2024 21:38 EDT Provider Outr Resulting Lab CHEMISTRY & BLOOD GAS ORDERABLES [facility] [address] [place], [place] [address] documented in this encounter Visit Diagnoses Not on filedocumented in this encounter Care Teams It Solutions Sales Consultant Relationship Specialty Start Date End Date Natty Mckinney MD [address] [place] [address] PCP - General 09/29/15 documented as of this encounter
--- OUTSIDE RECORDS SUMMARY | 2024-05-30 01:15 | XMS_ITS | Encounter Summary ---
Author Organization [facility] Address [address] [place] [address] Care Team Providers Care Chief Projectionist Name Role Phone Natty Mckinney MD Primary Care Provider [phone] Encounter Details Date Type Department Care Team (Late st Contact Info) Description 12/22/2020 Lab Requisition [facility] Pathology & Laboratory Medicine - [facility] [address] [place], [place] [address] Outr Resulting Lab, Provider Social History Tobacco Use Types Packs/Day Years Used Date Smoking Tobacco: Never Assessed Interpersonal Safety Answer Date Record ed Physically [...] Associated Diagnosis Comments PSA TOTAL, DIAGNOSTIC Routine 12/21/2020 13:54 EST documented in this encounter Results * PSA TOTAL, DIAGNOSTIC (12/21/2020 13:54 EST) PSA 1.6 0.0 - 3.5 ng/mL 12/22/2020 17:47 EST [facility] Blood VENOUS BLOOD / Unknown 12/21/2020 13:54 EST 12/22/2020 16:13 EST Narrative [facility] - 12/22/2020 17:47 EST NOTE: Serum PSA concentration should not be interpreted as absolute evidence for the presence or absence of malignant disease. Assayed on Siemens ADVIA Centaur XPT using chemiluminescent technology.??Values obtained by using different assay methods cannot be used interchangeably. Provider Outr Resulting Lab CHEMISTRY & BLOOD GAS ORDERABLES [facility] [address] [place] [address] documented in this encounter Visit Diagnoses Not on filedocumented in this encounter Care Teams Chief Projectionist Relationship Specialty Start Date End Date Natty Mckinney MD [address] [place] [address] PCP - General 09/29/15 documented as of this encounter
--- OUTSIDE RECORDS SUMMARY | 2024-05-30 01:15 | XMS_ITS | Encounter Summary ---
Author Organization [facility] Address [address] [place] [address] Care Team Providers Care Swing Saw Operator Name Role Phone Natty Mckinney MD Primary Care Provider [phone] Encounter Details Date Type Department Care Team (Late st Contact Info) Description 12/31/2023 Lab Requisition [facility] Pathology & Laboratory Medicine - [facility] [address] [place] [address] Outr Resulting Lab, Provider Social History Tobacco [...] Priority Date/Time Associated Diagnosis Comments PREALBUMIN Routine 12/31/2023 13:00 EST documented in this encounter Results * PREALBUMIN (12/31/2023 13:00 EST) Prealbumin 29 20 - 40 mg/dL 01/01/2024 10:13 EST [facility] Blood VENOUS BLOOD / Unknown 12/31/2023 13:00 EST 12/31/2023 21:20 EST Provider Outr Resulting Lab CHEMISTRY & BLOOD GAS ORDERABLES [facility] [address] [place] [address] documented in this encounter Visit Diagnoses Not on filedocumented in this encounter Care Teams Swing Saw Operator Relationship Specialty Start Date End Date Natty Mckinney MD [address] [place] [address] PCP - General 09/29/15 documented as of this encounter
--- OUTSIDE RECORDS SUMMARY | 2024-05-30 01:15 | XMS_ITS | Encounter Summary ---
Author Organization [facility] Address [address] [place] [address] Care Team Providers Care Hand Rounder Name Role Phone Natty Mckinney MD Primary Care Provider [phone] Reason for Visit * Reason Comments New Patient Visit Joint pain- pt state s knees (right one being replaced) and hands right CMC joint. Left hip points to joint. Encounter Details Date Type Department Care Team (Late st Contact Info) Description 01/06/2021 14:[address] [facility] Rheumatology [address] [place] [address] Ashley Massey MD [address] [facility] [address] [place] [address] Left hip pain (Primary Dx); Chronic pain of right knee; Arthritis of carpometacarpal (CMC) joints of both thumbs; Bilateral thumb pain; Numbness and tingling in both hands Social History Tobacco Use Types Packs/Day Years [...] EST documented in this encounter Patient Instructions * Patient Instructions* Ashley Massey MD - 01/06/2021 14:15 EST Images from the original note were not included. Stay on B12 May be contributing to numbness and pain Right knee per Dr Irizarry Ice and rest the wrists [facility] Patient Instructions Learning About Arthritis at the Base of the Thumb What is it? Arthritis at the base of the thumb joint is wear and tear on the cartilage. Cartilage is a firm, thick, slippery tissue. It covers and protects the ends of bones where they meet to form a joint. Whenyou have arthritis, there are changes in the [...] and less strength when you pinch or datastage architect things. Symptoms may come and go, stay [...] steroid medicines, using a brace or splint, and--in some cases--surgery. To help relieve pain in the joint, rest your sore hand. Switch hands for some activities. You can try heat and cold therapy, such as hot compresses, paraffin wax, cold packs, or ice massage. Your doctor may give you a splint to wear during some activities or when pain flares up. You can often manage mild or moderate arthritis pain with [id number] pain relievers. These include medicines that reduce swelling, such as ibuprofen or naproxen. You can also use acetaminophen.Sometimes these medicines are in creams that you [...] a good idea to know your test resultsand keep a list of the medicines you take. Where can you learn more? Go to https://[email or web address]/QoviaealMacromill or log into your Pickie account at [email or web address].Taifatech.org Enter T110 in the search box to learn more about Learning About Arthritis at the Base of the Thumb. Current as of: October 27, 2019?Content Version: 12.6 ?? [id number] [employer]. Care instructions adapted under license by [facility]. If you have questions about a medical condition or this instruction, always ask your healthcare professional. [employer] disclaims any warranty or liability for your use of this information. documented in this encounter Progress Notes * Ashley Massey MD - 01/06/2021 8905 EST [facility] Rheumatology Chief Complaint Patient presents with ??? [...] Patient states that when he was age 8he developed bilateral knee swelling. This improved spontaneously, several years later he was diagnosed with Crohn's disease. He states the main focus of his care is always been related to his bowel issues which have been significant. He had significant melena absorption as a consequence of his surgeries and has recurrent strictures and obstructions. 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 Due to his underlying bowel issues he is not [...] pain. He was told he had end-stage arthritis. He is going to be seen by orthopedics to consider knee replacement sometime in January. The patient states he is also had hand pain. Hands are dropping things and weak sensation is altered also has pain in the elbows. All the joints are arthritic per report of PCP. He states that he haspain at the base of his thumb. Makes it hard to do some mechanical work which he enjoys. Overall he tries to avoid the hospital because of prolonged time spent in hospitals from very youngage. States it was difficult to get himself to come here today but he did come in because he has been wanting to deal with his joint pain for a while. Review of systems as above in addition he reports he has chronic belly pain nausea vomiting stomachcramps bloody stools and diarrhea. None of this is new or concerning him given his history is several hours of morning stiffness and symptoms in the [...] Medical History: Diagnosis Date ??? Crohn disease (HCC-CMS) ??? Knee osteoarthritis ??? Prostate CA (HCC-CMS) radiation [facility] Family History Problem Relation Age of Onset ??? Crohn's Disease Son Social History: Smoker 2 grown children. From [facility]. Family members nearby. No alcohol.Occasional marijuana Review of Systems: 13 point ROS was done with the patient. See scanned document for details. Pertinent positives and negatives are noted in the HPI. Physical Examination: BP (!) 151/87 (BP Cuff Location: Left arm, BP Cuff Sizes: Adult, regular) Pulse 78 Temp 37.1 ??C (98.7 ??F) Ht 188 cm (74) Wt 70.3 kg (155 lb) BMI 19.90 kg/m?? Pleasant gentleman no apparent distress Eyes no injection Neck range of motion preserved Skin no rashes or abnormalities on extremities Or trunk Hand exam CMC squaring. Tinel's is negative. Tenderness bilateral cubital tunnels elbow range of motion is preserved shoulders unremarkable hipsrange of motion preserved with tenderness over the left IT band. Right knees bony enlargement without effusion left knee bony degenerative changes Neurologic alert oriented appropriate balance intact. Normal hand swing. Affect pleasant oriented and appropriate Data reviewed Notes from urology radiation team at [facility] PCP visits and labs. Labs: Lab Requisition on 12/21/2020 Component Date Value ??? PSA 12/21/2020 1.6 55-year-old gentleman with a history of Crohn's disease dating to childhood. Clinically it sounds as if he did have some childhood arthritis. He has had intermittent steroid therapy over the years and may have had intermittent flareups of Crohn's arthritis. Currently complaints of hand pain -There is a component of neurologic symptoms and the description of weakness -We discussed possible causes including B12 deficiency or carpal tunnel which does not fit clinically with his exam -I encouraged him to take his B12 regularly -Reconsider further neurologic testing and CTS if not improved with B12 compliance CMC pain -Bilateral CMC injection see procedure note below Knee pain -Upcoming appointment with Dr. Irizarry Spoke with patient [...] this encounter Visit Diagnoses Diagnosis Left hip pain- Primary Pain in joint, pelvic region and thigh Chronic pain of right knee Arthritis of carpometacarpal (CMC) joints of both thumbs Bilateral thumb pain Numbness and tingling in both hands documented in this encounter Administered Medications Inactive Administered Medications - up to 3 most recent administrations Medication Order MAR Action Action Date Dose Rate Site methylPREDNISolone ACETATE (DEPO-MEDROL) injection 40 mg 40 mg, intra-articular, NOW X1, 1 dose, On [place] 01/06/21 at 1600, Routine Given 01/06/2021 15:43 EST 40 mg Left Simon nd documented in this encounter Orders Medications Ordered That Sumit ht Not Have Been Administered Count Last Ordered Date First Ordered Date methylPREDNISolone ACETATE ( DEPO-MEDROL) injection 40 mg 1 01/06/2021 documented in this encounter Care Teams Hand Rounder Relationship Specialty Start Date End Date Natty Mckinney MD [address] [place] [address] PCP - General 09/29/15 documented as of this encounter
--- OUTSIDE RECORDS SUMMARY | 2024-05-30 01:15 | XMS_ITS | Encounter Summary ---
Author Organization [facility] Address [address] [place] [address] Care Team Providers Care Pit Supervisor Name Role Phone Natty Mckinney MD Primary Care Provider [phone] Encounter Details Date Type Department Care Team (Late st Contact Info) Description 02/25/2024 Lab Requisition [facility] Pathology & Laboratory Medicine - [facility] [address] [place] [address] Outr Resulting Lab, Provider Social History Tobacco [...] Priority Date/Time Associated Diagnosis Comments PREALBUMIN Routine 02/25/2024 12:40 EDT documented in this encounter Results * PREALBUMIN (02/25/2024 12:40 EDT) Prealbumin 31 20 - 40 mg/dL 02/26/2024 9:26 EDT [facility] Blood VENOUS BLOOD / Unknown 02/25/2024 12:40 EDT 02/25/2024 21:55 EDT Provider Outr Resulting Lab CHEMISTRY & BLOOD GAS ORDERABLES [facility] [address] [place], [place] [id number] documented in this encounter Visit Diagnoses Not on filedocumented in this encounter Care Teams Pit Supervisor Relationship Specialty Start Date End Date Natty Mckinney MD [address] [place] [address] PCP - General 09/29/15 documented as of this encounter
--- OUTSIDE RECORDS SUMMARY | 2024-05-30 01:15 | XMS_ITS | Encounter Summary ---
Author Organization [facility] Address [address] [place] [address] Care Team Providers Care Ict Customer Support Officer Name Role Phone Unavailable Primary Care Provider Adi e Encounter Details Date Type Department Care Team (Late st Contact Info) Description 08/11/2003 Results Only [facility] [address] [place] [address] Yoel Marie, DO [address] [place] [address] Social History Tobacco Use Types [...] Priority Date/Time Associated Diagnosis Comments SURGICAL PATHOLOGY Routine 08/11/2003 0:00 EDT documented in this encounter Results * SURGICAL PATHOLOGY (08/11/2003 0:00 EDT) Pathology Report: SURGICAL PATHOLOGY REPORT Reports generated via electronic interface contain original data; however they are lacking the format of the original report. Caution should be taken when reading/interpreti ng unformatted reports. Name: ? KRISHAN MONTE ? Accession #: ? [id number] ? : ? 1965 (Age: 38) ??M ? Collect Date: ? 08/11/2003 ? Location: ? [facility] ? Receive Date: ? 08/12/2003 ? Provider: YOEL MARIE DO Copy to: SONJA ALVA MD ? Final Pathologic Diagnosis: A. ?Small intestine, biopsy: 1. ?Benign intestinal mucosa with mild chronic inflammation. 2. ?No evidence of active Crohn' s disease. 3. ?No evidence of dysplasia or malignancy. B. ?Ileum, biopsy: 1. ?Focal mucosal defect, granulation tissue, organizing blood clot, and reactive changes. 2. ?No evidence of active Crohn' s disease. 3. ?No evidence of dysplasia or malignancy. Document reviewed and electronically signed by: Marina Fox MD Report ??Date: 08/13/2003 18:43 By the signature above, the attending physician certifies that he/she has personally conducted a gross and/or microscopic examination of the described specimens and rendered or confirmed the above diagnosis. Specimen(s) Received: A. ?Small bowel biopsy B. ?Ileum biopsy Clinical History: ? Bowel obstruction Gross Description: ? Received in formalin labelled Foster and small bowel bx is a 1.4 x 0.3 x 0.2 cm, pink strip of mucosa. ??The specimen is entirely submitted as (A). Received in formalin labelled Foster and ileum bx is a 1.5 x 0.7 x 0.4 cm, pink, mucosal polyp admixed with blood clot. ??The specimen is entirely submitted as (B). ??(Devin King/[facility] End of Report [facility] 08/11/2003 08/12/2003 8:5 9 EDT Yoel Marie DO PATHOLOGY ORDER [facility] [address] [place] [address] documented in this encounter Visit Diagnoses Not on filedocumented in this encounter
--- OUTSIDE RECORDS SUMMARY | 2024-05-30 01:15 | XMS_ITS | Encounter Summary ---
Author Organization [facility] Address [address] [place] [address] Care Team Providers Care Stitch Bonder Machine Operator Helper Name Role Phone Unavailable Primary Care Provider Adi e Encounter Details Date Type Department Care Team (Late st Contact Info) Description 07/10/2003 Results Only [facility] [address] [place] [address] Yoel Marie, DO [address] [place] [address] Social History Tobacco Use Types [...] Date/Time Associated Diagnosis Comments SURGICAL PATHOLOGY Routine 07/10/2003 0:00 EDT documented in this encounter Results * SURGICAL PATHOLOGY (07/10/2003 0:00 EDT) Pathology Report: SURGICAL PATHOLOGY REPORT Reports generated via electronic interface contain original data; however they are lacking the format of the original report. Caution should be taken when reading/interpreti ng unformatted reports. Name: ? KRISHAN MONTE ? Accession #: ? [id number] ? : ? 1965 (Age: 38) ??M ? Collect Date: ? 07/10/2003 ? Location: ? [facility] ? Receive Date: ? 07/11/2003 ? Provider: YOEL MARIE DO Copy to: SONJA SALOMON MD [...] confirmed the above diagnosis. Specimen(s) Received: A. ?Bx sm bowel 24 cm from anastomosis (#1) B. ?Bx sm bowel 10 cm from anastomosis (#2) Clinical History: ? Abdominal pain; personal hx Crohn' s disease; S/P sm bowel resection Gross Description: ? Received in Hollande' s fixative labelled Foster and bx sm bowel 24 cm from ileostomy are multiple soft tissue fragments which measure in aggregate 0.6 x 0.6 x 0.3 cm. ??Submitted entirely as (A). ?? Received in Hollande' s fixative labelled Foster and bx sm bowel 10 cm from anastomosis are multiple soft tissue fragments which measure in aggregate 0.3 x 0.3 x 0.3 cm. ??Submitted entirely as (B). ??(Dr. Gomes-FEDE)/charli End of Report [facility] 07/10/2003 07/11/2003 8:3 6 EDT Yoel Marie DO PATHOLOGY ORDER [facility] [address] [place] [address] documented in this encounter Visit Diagnoses Not on filedocumented in this encounter
--- OUTSIDE RECORDS SUMMARY | 2024-05-30 01:15 | XMS_ITS | Encounter Summary ---
Author Organization [facility] Address [address] [place] [address] Care Team Providers Care Home Health Care Provider Name Role Phone Natty Mckinney MD Primary Care Provider [phone] Encounter Details Date Type Department Care Team (Late st Contact Info) Description 04/17/2023 Lab Requisition [facility] Pathology & Laboratory Medicine - [facility] [address] [place] [address] Outr Resulting Lab, Provider Social History Tobacco [...] Priority Date/Time Associated Diagnosis Comments PREALBUMIN Routine 04/17/2023 10:01 EDT documented in this encounter Results * PREALBUMIN (04/17/2023 10:01 EDT) Prealbumin 27 20 - 40 mg/dL 04/18/2023 10:20 EDT [facility] Blood VENOUS BLOOD / Unknown 04/17/2023 10:01 EDT 04/17/2023 21:57 EDT Provider Outr Resulting Lab CHEMISTRY & BLOOD GAS ORDERABLES [facility] [address] [place] [address] documented in this encounter Visit Diagnoses Not on filedocumented in this encounter Care Teams Home Health Care Provider Relationship Specialty Start Date End Date Natty Mckinney MD [address] [place] [address] PCP - General 09/29/15 documented as of this encounter
--- OUTSIDE RECORDS SUMMARY | 2024-05-30 01:15 | XMS_ITS | Encounter Summary ---
[place] [address] Care Team Providers Care Paratransit Operator Name Role Phone Natty Mckinney MD Primary Care Provider [phone] Reason for Referral * Diagnostic Test (Routine) - Closed Specialty Diagnoses / Procedures Referred By Claire t Referred To Contact Radiology Diagnoses Elevated PSA Procedures CT Guided Biopsy Other Daniele Seals MD [facility] [place] [address] [facility] [place] [address] Referral ID Status Reason Start Date Expiration Date V isits Requested Visits Authorized [id number] Closed Specialty Service Requested 09/26/2019 09/25/2020 1 1 Reason for Visit * Diagnostic Test (Routine) - Closed Specialty Diagnoses / Procedures Referred By Contac t Referred To Contact Radiology Diagnoses Elevated PSA Procedures CT Guided Biopsy Other Daniele Seals MD [facility] [place] [address] [facility] [place] [address] Referral ID Status Reason Start Date Expiration Date V isits Requested Visits Authorized [id number] Closed Specialty Service Requested 09/26/2019 09/25/2020 1 1 Encounter Details Date Type Department Care Team (Latest Contact Info) Description 10/08/2019 7:19 AM EST - 10/08/2019 11:59 PM EST Hospital Encounter CT Scan at [facility] [place] [address] Daniele Seals MD [facility] [place] [address] Elevated PSA Discharge Disposition: Home Social History [...] this encounter Discharge Instructions * Discharge Instructions* Monica Montiel RN - 10/08/2019 10:30 AM EST [facility] Vascular and Interventional Radiology Biopsy Discharge Instructions ??? Liver, kidney or bone biopsy: call your doctor immediately if you develop a sudden onset of weakness, increased pain or swelling at the biopsy site or heavy bleeding at the biopsy site. ??? Lung biopsy: coughing up a little blood is common during the next 24 hours. If large blood clots come up, or if the bleeding gets worse, you should contact us or your doctor immediately. The mostcommon complication is collapse of the lung. The [...] an increase in drainage. Keep the biopsy sitedry for 24 hours. Replace the bandaid as needed. You may shower 24 hours after the biopsy. Medication: ??? DO NOT take aspirin-containing products, ibuprofen, or blood-thinning medication for the next 24 hours unless your clinician says you may do so. ??? Generally you may use acetaminophen as needed for discomfort unless you have liver disease and are instructed not to take acetaminophen. Biopsy Results ??? The results of your biopsy should be available within 5 business days and will be reported to you by your primary wound care technician or the clinician who ordered the biopsy. Please do not call us forresults as we will not have them. ??? If you have not been contacted by your clinician within 5 business days you should call that office for further information. When to call the Interventional Radiology Department: Please call with any questions or concerns. If it is during regular office hours, please call [phone]. If it is after regular office hours, or on weekends or holidays, please call [phone] and ask to speak to the Hide Buyer president & ceo [employer] for Interventional Radiology. You have received medication [...] please contact your M. D. Revised 09/04/19 [facility] Vascular and Interventional Radiology Biopsy Discharge Instructions ??? Biopsy: call your doctor immediately if you develop a sudden onset of weakness, increased pain or swelling at the biopsy site or heavy bleeding at the biopsy site. ??? Lung biopsy: coughing up a little blood is common during the next 24 hours. If large blood clots come up, or if the bleeding gets worse, you should contact us or your doctor immediately. The mostcommon complication is collapse of the lung. The [...] an increase in drainage. Keep the biopsy sitedry for 24 hours. Replace the bandaid as needed. You may shower 24 hours after the biopsy. Medication: ??? DO NOT take aspirin-containing products, ibuprofen, or blood-thinning medication for the next 24 hours unless your clinician says you may do so. ??? Generally you may use acetaminophen as needed for discomfort unless you have liver disease and are instructed not to take acetaminophen. Biopsy Results ??? The results of your biopsy should be available within 5 business days and will be reported to you by your primary wound care technician or the clinician who ordered the biopsy. Please do not call us forresults as we will not have them. ??? If you have not been contacted by your clinician within 5 business days you should call that office for further information. When to call the Interventional Radiology Department: Please call with any questions or concerns. If it is during regular office hours, please call [phone]. If it is after regular office hours, or on weekends or holidays, please call [phone] and ask to speak to the Hide Buyer president & ceo [employer] for Interventional Radiology. You have received medication [...] daily 02/23/2010 documented as of this encounter Progress Notes * Sonam Pickard RN - 10/08/2019 11:59 PM EST Interventional and Vascular Radiology Post-Procedure Call Name: Krishan Monte Age: 54 y.o. Sex; Male Date of : 1965 (home) Telephone Information: PCP Natty Mckinney MD [phone] Date/Time of call: October 09, 2019/9:25 AM [...] the care you received? No Nurse Comments: * Monica Montiel RN - 10/08/2019 10:50 AM EST Pt refused wheelchair, FYI. * Sonam Pickard RN - 10/08/2019 8:51 AM EST To procedure room CT 1 via stretcher. Onto table Prone. All monitors, O2, safety strap in place. Med's per protocol. * Sonam Pickard RN - 10/08/2019 8:14 AM EST [facility] NURSING DATABASE Name: KRISHAN MONTE Date of : 1965 AGE: 54 y.o. Address: [address] [address] (home) Mobile: Telephone Information: Referring Provider: Daniele Seals REASON FOR VISIT: Order Questions Answers Where will study be performed? [facility] Radiology [120] Laterality Right Is the patient on anticoagulant / anitplatelet therapy ? No Does the patient have any pertinent outside imaging? No Reason for exam and clinical history: CT guided prostate biopsy. Patient s/p APR (no rectum, can not have standard TRUS biopsy) foud to have elevated [...] 02/23/10 documented in this encounter H&P Notes * Barbara Pereztammy, POULTRY FEED SUPERVISOR - 10/08/2019 8:37 AM EST Images from [...] alternatives were discussed with the patient. The patient consented to the procedure. H&P reviewed: Yes Current Medications Reviewed: Yes Sedation Plan: moderate (conscious sedation) FOCUSED H&P and PRE-PROCEDURE NOTE: PCP: Natty Mckinney MD Referring Provider: Daniele Seals Planned Procedure: Prostate biopsy (CT-guided) Order Questions Answers Where will study be performed? [facility] Radiology [120] Laterality Right Is the patient on anticoagulant / anitplatelet therapy ? No Does the patient have any pertinent outside imaging? No Reason for exam and clinical history: CT guided prostate biopsy. Patient s/p APR (no rectum, can not have standard TRUS biopsy) foud to have elevated [...] file Gets together: Not on file Attends jain service: Not on file Active member of [...] Priority Date/Time Associated Diagnosis Comments CT GUIDED BIOPSY OTHER Routine 10/08/2019 10:11 AM EST Elevated PSA SURGICAL PATHOLOGY REPORT Routine 10/08/2019 9:45 AM EST SPECIMEN TO PATHOLOGY Routine 10/08/2019 9:16 AM EST SPECIMEN TO PATHOLOGY Routine 10/08/2019 9:16 AM EST SPECIMEN TO PATHOLOGY Routine 10/08/2019 9:16 AM EST SPECIMEN TO PATHOLOGY Routine 10/08/2019 9:16 AM EST SPECIMEN TO PATHOLOGY Routine 10/08/2019 9:16 AM EST SPECIMEN TO PATHOLOGY Routine 10/08/2019 9:16 AM EST SPECIMEN TO PATHOLOGY Routine 10/08/2019 9:08 AM EST SPECIMEN TO PATHOLOGY Routine 10/08/2019 9:08 AM EST SPECIMEN TO PATHOLOGY Routine 10/08/2019 9:08 AM EST SPECIMEN TO PATHOLOGY Routine 10/08/2019 9:08 AM EST SPECIMEN TO PATHOLOGY Routine 10/08/2019 9:08 AM EST SPECIMEN TO PATHOLOGY Routine 10/08/2019 9:08 AM EST SPECIMEN TO PATHOLOGY Routine 10/08/2019 8:12 AM EST documented in this encounter Results * CT Guided Biopsy [...] Prostate was localized with CT, patient prone. ??[place], mid and basal sites located on right and left. After sterile preparation of the overlying skin, 7 cc 1% lidocaine SQ was administered for anesthesia, and a 17 ga needle guide was advanced under CT guidance into the mass. The 18 ga biopsy gun was advanced coaxially and specimen obtained x 1-2 at each site and submitted individually labelled ??to pathology. ??[place] were removed and hemostasis obtained by manual [...] ?? Daniele Seals MD IMG CT ORDERABLES * Surgical Pathology Report (10/08/2019 9:45 AM EST) Surgical Pathology Report [id number] ? Location: [facility] The signing pathologist has (i) examined the relevant preparation(s) for the specimen(s) and (ii) rendered or confirmed the diagnosis(es). . ?Surgical Pathology DIAGNOSIS A - Prostatic core needle biopsy, right lateral base: ?Benign skeletal muscle and adipose tissue. B - Prostatic core needle biopsy, right lateral mid: ?Benign prostatic tissue. C - Prostatic core needle biopsy, right lateral apex: ?Benign skeletal muscle and fibrous connective tissue. 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 F - [...] Mac Coulter Verified: ??10/10/2019 ?Pathologist Performed at: ??-[facility] [place] Dept. [place], [place], [place] DISCUSSION Scanned slides: [id number] . CLINICAL INFORMATION Specimen Submitted: A - Right Lateral Base B - Right Lateral Mid C - Right Lateral [place] D - Right Base E - Right Mid F - Right Bradford G - Left Lateral Base H - Left Lateral Mid I - Left Lateral Bradford J - Left Base K - Left Mid L - Left Bradford Clinical History and Diagnosis: Patient status post APR (no rectum, cannot has standard TRUS biopsy) found to have elevated PSA and large PIRAD 5 lesion in right peripheral zone (based to mid gland) on prostate MRI please biopsy. SPECIMEN PROCESSING A - Labeled/Fixative: Right lateral base prostate, formalin. Quantity/Size: Five, 6.0 x 0.1 cm. Tissue Description: Soft, pink-olivas tissues. Sections/Processi ng: Submitted en toto ??in 1 cassette labeled A1. B - Labeled/Fixative: Right lateral mid prostate, formalin. Quantity/Size: Two, 1.5 x 1.0 cm and 1.4 x 1.0 cm. Tissue Description: Soft, pink-olivas tissues. Sections/Processi ng: Submitted en toto ??in 1 cassette labeled B1. C - Labeled/Fixative: Right lateral apex prostate, formalin. Quantity/Size: Two, 0.9 x 0.1 cm and 0.4 x 0.1 cm. Tissue Description: Soft, pink-olivas tissues. Sections/Processi ng: Submitted en toto ??in 1 cassette labeled C1. D - Labeled/Fixative: Right medial base prostate, formalin. Quantity/Size: Two, 1.4 x 0.1 cm and 1.4 x 1.0 cm. Tissue Description: Soft, pink-olivas tissues. Sections/Processi ng: Submitted en toto ??in 1 cassette labeled D1. E - Labeled/Fixative: Right medial mid prostate, formalin. Quantity/Size: Two, 1.6 x 0.1 cm and 1.6 x 0.1 cm. Tissue Description: Soft, pink-olivas tissues. Sections/Processi ng: Submitted en toto ??in 1 cassette labeled E1. F - Labeled/Fixative: Right medial apex prostate, formalin. Quantity/Size: Single, 1.7 cm. Tissue Description: Soft, pink-olivas tissue. Sections/Processi ng: Submitted en toto ??in 1 cassette labeled F1. G - Labeled/Fixative: Left lateral base prostate, formalin. Quantity/Size: Three, 1.4, 0.5, and 0.3 cm x 1 cm. Tissue Description: Soft, pink-olivas tissues. Sections/Processi ng: Submitted en toto ??in 1 cassette labeled G1. H - Labeled/Fixative: Left lateral mid prostate, formalin. . SPECIMEN PROCESSING Quantity/Size: Multiple, up to 1.2 cm x 0.1 cm in aggregate. Tissue Description: Soft, pink-olivas tissues. Sections/Processi ng: Submitted en toto ??in 1 cassette labeled H1. I - Labeled/Fixative: Left lateral apex, formalin. Quantity/Size: Two, 1.1 and 0.3 x 0.1 cm. Tissue Description: Soft, pink-olivas tissues. Sections/Processi ng: Submitted en toto ??in 1 cassette labeled I1. J - Labeled/Fixative: Left medial base prostate, formalin. Quantity/Size: Three, 1.7 cm, 0.3 cm, and 0.2 cm x 0.1 cm. Tissue Description: Soft, pink-olivas tissues. Sections/Processi ng: Submitted en toto ??in 1 cassette labeled J1. K - Labeled/Fixative: Left medial mid prostate, formalin. Quantity/Size: Two, 1.7 and 1.0 x 0.1 cm. Tissue Description: Soft, pink-olivas tissues. Sections/Processi ng: Submitted en toto ??in 1 cassette labeled K1. L - Labeled/Fixative: Left medial apex, formalin. Quantity/Size: Two, 1.4 and 0.5 x 0.1 cm. Tissue Description: Soft, pink-olivas tissues. Sections/Processi ng: Submitted en toto ??in 1 cassette labeled L1. ??crj [facility] 10/08/2019 9:45 AM EST Daniele Seals MD PATHOLOGY/CYTOLOGY ORDERABLES Performing Organization Address [facility] Co de Phone Number [facility] [place] [address] * Specimen to Pathology (10/08/2019 9:16 AM EST) AP Specimen 10/08/2019 9:16 AM EST 10/08/2019 9:16 AM EST Narrative [facility] - 10/08/2019 9:16 AM EST Specimen requisition ordered. ??Separate Pathology report to follow Daniele Seals MD PATHOLOGY/CYTOLOGY ORDERABLES Performing Organization Address [facility] Co de Phone Number [facility] [place] [address] * Specimen to Pathology (10/08/2019 9:16 AM EST) AP Specimen 10/08/2019 9:16 AM EST 10/08/2019 9:16 AM EST Narrative [facility] - 10/08/2019 9:16 AM EST Specimen requisition ordered. ??Separate Pathology report to follow Daniele Seals MD PATHOLOGY/CYTOLOGY ORDERABLES Performing Organization Address [facility] Co de Phone Number [facility] [place] [address] * Specimen to Pathology (10/08/2019 9:16 AM EST) AP Specimen 10/08/2019 9:16 AM EST 10/08/2019 9:16 AM EST Narrative [facility] - 10/08/2019 9:16 AM EST Specimen requisition ordered. ??Separate Pathology report to follow Daniele Seals MD PATHOLOGY/[place] [address] * Specimen to Pathology (10/08/2019 9:16 AM EST) AP Specimen 10/08/2019 9:16 AM EST 10/08/2019 9:16 AM EST Narrative [facility] - 10/08/2019 9:16 AM EST Specimen requisition ordered. ??Separate Pathology report to follow Daniele Seals MD PATHOLOGY/[place] [address] * Specimen to Pathology (10/08/2019 9:16 AM EST) AP Specimen 10/08/2019 9:16 AM EST 10/08/2019 9:16 AM EST Narrative [facility] - 10/08/2019 9:16 AM EST Specimen requisition ordered. ??Separate Pathology report to follow Daniele Seals MD PATHOLOGY/CYTOLOGY ORDERABLES Performing Organization Address City/[facility]/[place] [address] * Specimen to Pathology (10/08/2019 9:16 AM EST) AP Specimen 10/08/2019 9:16 AM EST 10/08/2019 9:16 AM EST Narrative [facility] - 10/08/2019 9:16 AM EST Specimen requisition ordered. ??Separate Pathology report to follow Daniele Seals MD PATHOLOGY/CYTOLOGY ORDERABLES Performing Organization Address City/[facility]/[place] [address] * Specimen to Pathology (10/08/2019 9:08 AM EST) AP Specimen 10/08/2019 9:08 AM EST 10/08/2019 9:08 AM EST Narrative [facility] - 10/08/2019 9:08 AM EST Specimen requisition ordered. ??Separate Pathology report to follow Daniele Seals MD PATHOLOGY/CYTOLOGY ORDERABLES Performing Organization Address [facility]/ZIP Co de Phone Number [facility] [address] * Specimen to Pathology (10/08/2019 9:08 AM EST) AP Specimen 10/08/2019 9:08 AM EST 10/08/2019 9:08 AM EST Narrative [facility] - 10/08/2019 9:08 AM EST Specimen requisition ordered. ??Separate Pathology report to follow Daniele Seals MD PATHOLOGY/CYTOLOGY ORDERABLES Performing Organization Address [facility] Co de Phone Number [facility] [address] * Specimen to Pathology (10/08/2019 9:08 AM EST) AP Specimen 10/08/2019 9:08 AM EST 10/08/2019 9:08 AM EST Narrative [facility] - 10/08/2019 9:08 AM EST Specimen requisition ordered. ??Separate Pathology report to follow Daniele Seals MD PATHOLOGY/CYTOLOGY ORDERABLES Performing Organization Address [facility] [place] [address] * Specimen to Pathology (10/08/2019 9:08 AM EST) AP Specimen 10/08/2019 9:08 AM EST 10/08/2019 9:08 AM EST Narrative [facility] - 10/08/2019 9:08 AM EST Specimen requisition ordered. ??Separate Pathology report to follow Daniele Seals MD PATHOLOGY/CYTOLOGY ORDERABLES Performing Organization Address [facility]/ZIP Co de Phone Number [facility] [place] [address] * Specimen to Pathology (10/08/2019 9:08 AM EST) AP Specimen 10/08/2019 9:08 AM EST 10/08/2019 9:08 AM EST Narrative [facility] - 10/08/2019 9:08 AM EST Specimen requisition ordered. ??Separate Pathology report to follow Daniele Seals MD PATHOLOGY/CYTOLOGY ORDERABLES Performing Organization Address [facility] [place] [place] [address] * Specimen to Pathology (10/08/2019 9:08 AM EST) AP Specimen 10/08/2019 9:08 AM EST 10/08/2019 9:08 AM EST Narrative [facility] - 10/08/2019 9:08 AM EST Specimen requisition ordered. ??Separate Pathology report to follow Daniele Seals MD PATHOLOGY/CYTOLOGY ORDERABLES Performing Organization Address [facility] [place] [address] * Specimen to Pathology (10/08/2019 8:12 AM EST) AP Specimen 10/08/2019 8:12 AM EST 10/08/2019 8:12 AM EST Narrative [facility] - 10/08/2019 8:12 AM EST Specimen requisition ordered. ??Separate Pathology report to follow Daniele Seals MD PATHOLOGY/CYTOLOGY ORDERABLES Performing Organization Address [facility] Co de Phone Number [facility] [place] [address] documented in this encounter Visit Diagnoses Diagnosis Elevated PSA Elevated prostate specific antigen (PSA) documented in this encounter Administered Medications Inactive Administered Medications - up to 3 most recent administrations Medication Order MAR Action Action Date Dose Rate Site fentaNYL (PF) 50 mcg/mL injection 1 dose, Starting on Sun10/08/19 at 0840, Until Sun10/08/19 at 0858, Sonam Pickard: cabinet override fentaNYL 50 mcg/mL multi-dose injection 25-50 mcg, Intravenous, EVERY 5 MIN PRN, [...] verbal order., Angio/IR (Intra-Procedure), Routine Given 10/08/2019 9:17 AM EST 50 mcg Given 10/08/2019 9:12 AM EST 50 mcg Given 10/08/2019 9:07 AM EST 50 mcg lidocaine (XYLOCAINE) 10 mg/mL (1 %) injection 10 mg 10 mg, Subcutaneous, ONCE, 1 dose, On Sun10/08/19 at 0915, For use in Interventional Radiology (IR) only for procedure with direct provider supervision and verbal order., Angio/IR (Intra-Procedure), Routine Given 10/08/2019 9:20 AM EST 10 mg midazolam (PF) (VERSED) 1 mg/mL injection 1 dose, Starting on Sun10/08/19 at 0840, Until Sun10/08/19 at 0858, Sonam Pickard: cabinet override midazolam (PF) (VERSED) multi-dose injection 0.5-1 mg [...] verbal order., Angio/IR (Intra-Procedure), Routine Given 10/08/2019 9:11 AM EST 1 mg Given 10/08/2019 9:08 AM EST 1 mg Given 10/08/2019 9:04 AM EST 1 mg sodium chloride 0.9% infusion 1,000 mL, at 100 mL/hr, Intravenous, CONTINUOUS, Starting on 11/20/19 at 0915, Until 10/08/19 at 1041, Angio/IR (Day of Procedure) New Bag 10/08/2019 9:15 AM EST 1,000 mLs 100 mL/hr documented in this encounter Care Teams Paratransit Operator Relationship Specialty Start Date End Date Natty Mckinney MD [address] [place] [address] PCP - General 10/11/10 documented as of this encounter
--- OUTSIDE RECORDS SUMMARY | 2024-05-30 01:15 | XMS_ITS | Encounter Summary ---
Author Organization [facility] Address [address] [place] [address] Care Team Providers Care Checkerer Hand Name Role Phone Natty Mckinney MD Primary Care Provider [phone] Encounter Details Date Type Department Care Team (Late st Contact Info) Description 10/28/2021 Lab Requisition [facility] Pathology & Laboratory Medicine - [facility] [address] [place] [address] Outr Resulting Lab, Provider Social History Tobacco [...] Procedure Name Priority Date/Time Associated Diagnosis Comments CHLAMYDIA/N. GONORRHOEAE AMPLIFIED NUCLEIC ACID Routine 10/27/2021 15:30 EST documented in this encounter Results * CHLAMYDIA/N. GONORRHOEAE AMPLIFIED RNA (10/27/2021 15:30 EST) Neisseria gonorrhoeae Result Negative Negative 10/31/2021 15:21 EST [facility] Chlamydia trachomatis Result Negative Negative 10/31/2021 15:21 EST [facility] Urine URINE / Unknown 10/27/2021 1 5:30 EST 10/28/2021 21:18 EST Provider Outr Resulting Lab MICROBIOLOGY - GENERAL ORDERABLES Performing Organization Address City/State/[facility] Co de Phone Number [facility] [address] [place] [address] documented in this encounter Visit Diagnoses Not on filedocumented in this encounter Care Teams Checkerer Hand Relationship Specialty Start Date End Date Natty Mckinney MD [address] [place] [address] PCP - General 09/29/15 documented as of this encounter
--- OUTSIDE RECORDS SUMMARY | 2024-05-30 01:15 | XMS_ITS | Encounter Summary ---
Author Organization [facility] Address [address] [place] [address] Care Team Providers Care Jewel Bearing Grinder Name Role Phone Natty Mckinney MD Primary Care Provider [phone] Encounter Details Date Type Department Care Team (Late st Contact Info) Description 10/29/2023 Lab Requisition [facility] Pathology & Laboratory Medicine - [facility] [address] [place] [address] Outr Resulting Lab, Provider Social History Tobacco [...] Priority Date/Time Associated Diagnosis Comments PREALBUMIN Routine 10/29/2023 12:55 EST documented in this encounter Results * PREALBUMIN (10/29/2023 12:55 EST) Prealbumin 30 20 - 40 mg/dL 10/30/2023 9:39 EST [facility] Blood VENOUS BLOOD / Unknown 10/29/2023 12:55 EST 10/29/2023 21:59 EST Provider Outr Resulting Lab CHEMISTRY & BLOOD GAS ORDERABLES [facility] [address] [place] [address] documented in this encounter Visit Diagnoses Not on filedocumented in this encounter Care Teams Jewel Bearing Grinder Relationship Specialty Start Date End Date Natty Mckinney MD [address] [place] [address] PCP - General 09/29/15 documented as of this encounter
--- OUTSIDE RECORDS SUMMARY | 2024-05-30 01:15 | XMS_ITS | Encounter Summary ---
Author Organization [facility] Address [address] [place] [address] Care Team Providers Care Blood Bank Worker Name Role Phone Natty Mckineny MD Primary Care Provider [phone] Encounter Details Date Type Department Care Team (Late st Contact Info) Description 12/03/2023 Lab Requisition [facility] Pathology & Laboratory Medicine - [facility] [address] [place] [address] Outr Resulting Lab, Provider Social History Tobacco [...] Priority Date/Time Associated Diagnosis Comments PREALBUMIN Routine 12/03/2023 13:00 EST documented in this encounter Results * PREALBUMIN (12/03/2023 13:00 EST) Prealbumin 32 20 - 40 mg/dL 12/04/2023 9:51 EST [facility] Blood VENOUS BLOOD / Unknown 12/03/2023 13:00 EST 12/03/2023 21:40 EST Provider Outr Resulting Lab CHEMISTRY & BLOOD GAS ORDERABLES [facility] [address] [place] [address] documented in this encounter Visit Diagnoses Not on filedocumented in this encounter Care Teams Blood Bank Worker Relationship Specialty Start Date End Date Natty Mckinney MD [address] [place] [address] PCP - General 09/29/15 documented as of this encounter
--- OUTSIDE RECORDS SUMMARY | 2024-05-30 01:15 | XMS_ITS | Encounter Summary ---
Author Organization [facility] Address [address] [place] [address] Care Team Providers Care Construction Worker Name Role Phone Natty Mckinney MD Primary Care Provider [phone] Encounter Details Date Type Department Care Team (Late st Contact Info) Description 09/18/2022 Lab Requisition [facility] Pathology & Laboratory Medicine - [facility] [address] [place] [address] Outr Resulting Lab, Provider Social History Tobacco [...] Procedure Name Priority Date/Time Associated Diagnosis Comments T3 FREE Routine 09/18/2022 11:00 EDT PSA TOTAL, DIAGNOSTIC Routine 09/18/2022 11:00 EDT documented in this encounter Results * T3 FREE (09/18/2022 11:00 EDT) T3, Free 3.3 2.8 - 5.3 pg/mL 09/19/2022 18:12 EDT [facility] Blood VENOUS BLOOD / Unknown 09/18/2022 11:00 EDT 09/19/2022 17:25 EDT Provider Outr Resulting Lab CHEMISTRY & BLOOD GAS ORDERABLES Performing Organization Address [facility] Co de Phone Number [facility] [address] [place] [address] * PSA TOTAL, DIAGNOSTIC (09/18/2022 11:00 EDT) PSA 1.1 <=3.5 ng/mL 09/19/2022 19:58 EDT [facility] Blood VENOUS BLOOD / Unknown 09/18/2022 11:00 EDT 09/19/2022 17:25 EDT Narrative [facility] - 09/19/2022 19:58 EDT NOTE: Serum PSA concentration should not be interpreted as absolute evidence for the presence or absence of malignant disease. Assayed on [employer] Centaur XPT using chemiluminescent technology.??Values obtained by using different assay methods cannot be used interchangeably. Provider Outr Resulting Lab CHEMISTRY & BLOOD GAS ORDERABLES Performing Organization Address City/[facility]/ZIP Co de Phone Number [facility] [address] [place] [address] documented in this encounter Visit Diagnoses Not on filedocumented in this encounter Care Teams Construction Worker Relationship Specialty Start Date End Date Natty Mckinney MD [address] [place] [address] PCP - General 09/29/15 documented as of this encounter
--- OUTSIDE RECORDS SUMMARY | 2024-05-30 01:15 | XMS_ITS | Encounter Summary ---
Author Organization [facility] Address [address] [place] [address] Care Team Providers Care Business Education Instructor Name Role Phone Natty Mckinney MD Primary Care Provider [phone] Encounter Details Date Type Department Care Team (Late st Contact Info) Description 05/07/2023 Lab Requisition [facility] Pathology & Laboratory Medicine - [facility] [address] [place] [address] Outr Resulting Lab, Provider Social History Tobacco [...] Priority Date/Time Associated Diagnosis Comments PREALBUMIN Routine 05/07/2023 10:52 EDT documented in this encounter Results * PREALBUMIN (05/07/2023 10:52 EDT) Prealbumin 29 20 - 40 mg/dL 05/08/2023 9:37 EDT [facility] Blood VENOUS BLOOD / Unknown 05/07/2023 10:52 EDT 05/07/2023 21:44 EDT Provider Outr Resulting Lab CHEMISTRY & BLOOD GAS ORDERABLES [facility] [address] [place] [address] documented in this encounter Visit Diagnoses Not on filedocumented in this encounter Care Teams Business Education Instructor Relationship Specialty Start Date End Date Natty Mckinney MD [address] [place] [address] PCP - General 09/29/15 documented as of this encounter
--- OUTSIDE RECORDS SUMMARY | 2024-05-30 01:15 | XMS_ITS | Encounter Summary ---
Author Organization [facility] Address [address] [place] [address] Care Team Providers Care Regulatory Product Manager Name Role Phone Natty Mckinney MD Primary Care Provider Encounter Details Date Type Department Care Team (Late st Contact Info) Description 06/05/2023 Lab Requisition [facility] Pathology & Laboratory Medicine - [facility] [address] [place] [address] Outr Resulting Lab, Provider Social History Tobacco [...] Priority Date/Time Associated Diagnosis Comments PREALBUMIN Routine 06/04/2023 11:25 EDT documented in this encounter Results * PREALBUMIN (06/04/2023 11:25 EDT) Prealbumin 29 20 - 40 mg/dL 06/06/2023 10:53 EDT [facility] Blood VENOUS BLOOD / Unknown 06/04/2023 11:25 EDT 06/05/2023 17:41 EDT Provider Outr Resulting Lab CHEMISTRY & BLOOD GAS ORDERABLES [facility] [address] [place] [address] documented in this encounter Visit Diagnoses Not on filedocumented in this encounter Care Teams Regulatory Product Manager Relationship Specialty Start Date End Date Natty Mckinney MD [address] [place] [address] PCP - General 09/29/15 documented as of this encounter
--- OUTSIDE RECORDS SUMMARY | 2024-05-30 01:15 | XMS_ITS | Encounter Summary ---
Author Organization [facility] Address [address] [place] [address] Care Team Providers Care Wagon Driller Name Role Phone Natty Mckinney MD Primary Care Provider [phone] Encounter Details Date Type Department Care Team (Late st Contact Info) Description 08/20/2023 Lab Requisition [facility] Pathology & Laboratory Medicine - [facility] [address] [place] [address] Outr Resulting Lab, Provider Social History Tobacco [...] Associated Diagnosis Comments PSA TOTAL, DIAGNOSTIC Routine 08/20/2023 13:00 EDT documented in this encounter Results * PSA TOTAL, DIAGNOSTIC (08/20/2023 13:00 EDT) PSA 1.5 <=3.5 ng/mL 08/21/2023 11:41 EDT [facility] Blood VENOUS BLOOD / Unknown 08/20/2023 13:00 EDT 08/20/2023 21:34 EDT Narrative [facility] - 08/21/2023 11:41 EDT NOTE: Serum PSA concentration should not be interpreted as absolute evidence for the presence or absence of malignant disease. Assayed on [employer]aur XPT using chemiluminescent technology.??Values obtained by using different assay methods cannot be used interchangeably. Provider Outr Resulting Lab CHEMISTRY & BLOOD GAS ORDERABLES [facility] [address] [place] [address] documented in this encounter Visit Diagnoses Not on filedocumented in this encounter Care Teams Wagon Driller Relationship Specialty Start Date End Date Natty Mckinney MD [address] [place] [address] PCP - General 09/29/15 documented as of this encounter
--- OUTSIDE RECORDS SUMMARY | 2024-05-30 01:16 | XMS_ITS | Encounter Summary ---
Author Organization [facility] Address [address] [place] [address] Care Team Providers Care Mother Superior Name Role Phone Unavailable Primary Care Provider Adi e Encounter Details Date Type Department Care Team (Late st Contact Info) Description 12/04/2001 Results Only [facility] - [facility] [address] [place] [address] Yoel Marie, DO [address] [place] [address] Social History Tobacco Use Types [...] Date/Time Associated Diagnosis Comments SURGICAL PATHOLOGY Routine 12/04/2001 0:00 EST documented in this encounter Results * SURGICAL PATHOLOGY (12/04/2001 0:00 EST) Pathology Report: SURGICAL PATHOLOGY REPORT Reports generated via electronic interface contain original data; however they are lacking the format of the original report. Caution should be taken when reading/interpreti ng unformatted reports. Name: ? KRISHAN MONTE ? Accession #: ? [id number] ? : ? 1965 (Age: 36) ??M ? Collect Date: ? 12/04/2001 ? Location: ? [facility] ? Receive Date: ? 12/05/2001 ? Provider: YOEL MARIE DO Copy to: SITA SALOMON MD ? Final Pathologic Diagnosis: ? Tissue from perianal region, resection: 1. ?Fibromuscular, skin, and subcutaneous tissue with: ? - Fibrosis. - Granulation tissue. - Acute and chronic inflammation with giant cell reaction. Document reviewed and electronically signed by: Marina Fox MD Report ??Date: 12/06/2001 17:06 By the signature above, the attending physician certifies that he/she has personally conducted a gross and/or microscopic examination of the described specimens and rendered or confirmed the above diagnosis. Specimen(s) Received: ? Perianal fistula triad Clinical History: ? Perianal fistula Gross Description: ? Received in formalin labelled Foster and perianal fistula tract are five blackman-yellow to white firm indurated rubbery soft tissues ranging from 0.6 x 0.5 x 0.4 cm to 2.5 x 2.4 x 0.7 cm. ??The largest tissue has an overlying blackman-olivas wrinkled skin ellipse measuring 2.0 0.5 cm. The ellipse has a central linear crease. ??The cut surfaces are blackman-white firm and fibrous. ??Also received is a blackman-olivas wrinkled curling 2.2 x 0.4 cm portion of skin with no discrete lesions identified on the epidermal surface. The specimens are inked and approximately 75% of the specimen is submitted as follows: BLOCK KOHLER A1, A2 ?Smaller tissues A3 ?Largest tissue A4 ?Medical Sales additional skin ([facility] [place])/[facility] End of Report [facility] 12/04/2001 12/05/2001 9:3 9 EST Yoel Marie DO PATHOLOGY ORDER MICHAEL [facility] [address] [place] [address] documented in this encounter Visit Diagnoses Not on filedocumented in this encounter
--- OUTSIDE RECORDS SUMMARY | 2024-05-30 01:16 | XMS_ITS | Encounter Summary ---
Author Organization [facility] Address [address] [place] [address] Care Team Providers Care Disaster Recovery Analyst Name Role Phone Unavailable Primary Care Provider Unavailabl e Encounter Details Date Type Department Care Team (Late st Contact Info) Description 02/23/2003 Results Only *[facility] Gastroenterology - [place] [address] [place] [address] Gold Chavez MD Social History Tobacco Use Types Packs/Day Years Used Date Smoking Tobacco: Never Assessed Sex and Gender Information Value Date Recorded Sex Assigned at Not on file Gender Identity Not on file Sexual Orientation Not on file documented as of this encounter Plan of Treatment Not on file documented as of this encounter Procedures Procedure Name Priority Date/Time Associated Diagnosis Comments IBC Routine 02/23/2003 11:57 EDT PROTIME Routine 02/23/2003 11:57 EDT COMPLETE BLOOD COUNT AND DIFFERENTIAL Routine 02/23/2003 11:57 EDT IRON Routine 02/23/2003 11:57 EDT GGT Routine 02/23/2003 11:57 EDT FOLATE Routine 02/23/2003 11:57 EDT FERRITIN Routine 02/23/2003 11:57 EDT VITAMIN B12 Routine 02/23/2003 11:57 EDT COMPREHENSIVE METABOLIC PANEL (CMP) Routine 02/23/2003 11:57 EDT documented in this encounter Results * PROTIME (02/23/2003 11:57 EDT) Pro Time 11.8 10.9 - 13.9 secs [facility] Comment:Coumadin N I.N.R. 0.9 0.9 - 1.1 Ratio [facility] Comment: Moderate Intensity Coumadin INR = 2.0-3.0 Adjustments in anticoagulant therapy dose should be based upon the INR and NOT the Pro Time. Coumadin N 02/23/2003 11:5 7 EDT 02/23/2003 11:58 EDT Gold Chavez MD HEMATOLOGY & PF4 ORD ERABLES Performing Organization Address [facility] Co de Phone Number [facility] [address] [place] [address] * (ABNORMAL) IRON (02/23/2003 11:57 EDT) Pathologist [facility] Iron 38(L) 70 - 180 ug/dl [facility] 02/23/2003 11:5 7 EDT 02/23/2003 11:58 EDT Gold Chavez MD CHEMISTRY & BLOOD GA S ORDERABLES Performing Organization Address [facility] Co de Phone Number [facility] [address] [place] [address] * (ABNORMAL) IBC (02/23/2003 11:57 EDT) Pathologist [facility] TIBC 499(H) 225 - 425 ug/dl [facility] 02/23/2003 11:5 7 EDT 02/23/2003 11:58 EDT Gold Chavez MD CHEMISTRY & BLOOD GA S ORDERABLES Performing Organization Address [facility] Co de Phone Number [facility] [address] [place] [address] * (ABNORMAL) GGT (02/23/2003 11:57 EDT) Pathologist [facility] GGT 79(H) 15 - 73 U/L [facility] 02/23/2003 11:5 7 EDT 02/23/2003 11:58 EDT Gold Chavez MD CHEMISTRY & BLOOD GA S ORDERABLES Performing Organization Address [facility] Phone Number [facility] [address] [place] [address] * FOLATE (02/23/2003 11:57 EDT) Pathologist [facility] Folate >24.0 ng/mL [facility] Comment: Deficient: ??Less than 3.4 ng/mL Indeterminate: ??3.4-5.4 ng/mL Normal: ??Greater than 5.4 ng/mL Note new reference range. 02/23/2003 11:5 7 EDT 02/23/2003 11:58 EDT Gold Chavez MD CHEMISTRY & BLOOD GA S ORDERABLES Performing Organization Address [facility] Phone Number [facility] [address] [place] [address] * (ABNORMAL) FERRITIN (02/23/2003 11:57 EDT) Pathologist [facility] Ferritin 40(L) 42 - 313 ng/ml [facility] 02/23/2003 11:5 7 EDT 02/23/2003 11:58 EDT Gold Chavez MD CHEMISTRY & BLOOD GA S ORDERABLES Performing Organization Address [facility] de Phone Number [facility] [address] [place] [address] * COMPREHENSIVE METABOLIC PANEL (CMP) (02/23/2003 11:57 EDT) Pathologist [facility] Potassium 4.4 3.5 - 5.0 mEq/L [facility] Sodium 141 136 - 145 mEq/L [facility] Chloride 104 96 - 110 mEq/L [facility] CO2 26 24 - 30 mEq/L [facility] Total Alkaline Phosphatase 118 38 - 126 U/L [facility] Bilirubin, Total 0.2 0.2 - 1.3 mg/dl [...] mg/dl [facility] Albumin/Globulin Ratio 2.0 [facility] 02/23/2003 11:5 7 EDT 02/23/2003 11:58 EDT Gold Chavez MD CHEMISTRY & BLOOD GA S ORDERABLES [facility] [address] [place] [address] * (ABNORMAL) HEMAGRAM AND DIFFERENTIAL (02/23/2003 11:57 EDT) WBC 9.47 4.0 - 10.4 K/cmm [facility] RBC 4.30(L) 4.36 - 5.78 M/cmm [facility] Hemoglobin 14.3 13.8 - 17.3 gm/dl [facility] HCT 42.0 39.5 - 50.2 % [facility] MCV 98(H) 81 - 95 fl [facility] MCH 33.2(H) 27.6 - 33.0 pg [facility] MCHC 34.0 32.8 - 36.4 gm/dl [facility] PLT 222 141 - 320 K/cmm [facility] RDW-CV 16.9(H) 11.8 - 14.1 % [facility] Neutrophils 79 45.5 - 79.7 % [facility] % Bands 1 % [facility] Lymphocytes 15 15.0 - 46.8 % [facility] Monocytes 3 1.8 - 12.0 % [facility] Eosinophils 2 0.6 - 6.9 % [facility] ABS Neutrophils 7.49 2.20 - 8.85 K/cmm [facility] ABS Bands 0.09 K/cmm [facility] ABS Lymphs 1.42 1.09 - 3.30 K/cmm [facility] ABS Monocytes 0.28 0.1 - 0.8 K/cmm [facility] ABS Eosinophils 0.19 0.03 - 0.61 K/cmm [facility] RBC Morphology 1+ Anisocytosis [facility] Type of Diff: Manual [facility] 02/23/2003 11:5 7 EDT 02/23/2003 11:58 EDT Gold Chavez MD PACKAGES & DNA PROBE ORDERABLES Performing Organization Address [facility] de Phone Number [facility] [address] [place] [address] * (ABNORMAL) VITAMIN B12 (02/23/2003 11:57 EDT) Vitamin B-12 >2000(H) 250 - 1100 pg/ml [facility] 02/23/2003 11:5 7 EDT 02/23/2003 11:58 EDT Gold Chavez MD CHEMISTRY & BLOOD GA S ORDERABLES Performing Organization Address [facility] de Phone Number [facility] [address] [place] [address] documented in this encounter Visit Diagnoses Not on filedocumented in this encounter
--- OUTSIDE RECORDS SUMMARY | 2024-05-30 01:16 | XMS_ITS | Encounter Summary ---
Author Organization [facility] Address [address] [place] [address] Care Team Providers Care Potato Bucker Name Role Phone Unavailable Primary Care Provider Unavailpoly e Encounter Details Date Type Department Care Team (Latest Contact Info) Description 02/23/2003 13:27 EDT Hospital Encounter [facility] - Other [address] [place] [address] Gold Chavez MD Unknown, Provider, Discharge Disposition: Auto Discharge Social History Tobacco [...]
[2024-05-30] MEDS: Normal Saline Flush 10 ML SYR IVP (13:00)
[2024-05-30 13:19] LABS: Abs Immature Grans 0.06 10^3/uL (0.0-0.06); Absolute Basophil Count 0.07 10^3/uL (0.0-0.2); Absolute Lymphocyte Count 2.62 10^3/uL (1.2-3.4); Absolute Monocyte Count 1.02 10^3/uL (0.1-0.8); Basophils % 0.5 %; Eosinophils % 1.1 %; HCT 40.7 % (40.0-50.0); HGB 13.5 g/dL (13.5-17.5); Immature Grans % 0.5 %; MCH 31.5 pg (27.0-33.0); MCHC 33.2 % (32.0-36.0); MCV 95 fL (80-95); MPV 10.7 fL (8.0-11.0); Monocytes % 7.8 %; Neutrophils % 70.1 %; Platelet Count 296 10^3/uL (130-400); RBC 4.28 10^6/uL (4.36-5.78); RDW 13.4 % (11.8-14.1); WBC 13.09 10^3/uL (4.4-10.8)
[2024-05-30 13:21] LABS: Absolute Eosinophil Count 0.14 10^3/uL (0.0-0.7); Absolute Neutrophil Count 9.18 10^3/uL (1.2-6.7)
[2024-05-30 13:33] LABS: ALT 161 U/L (16-63); AST 46 U/L (15-37); Albumin 3.8 g/dL (3.4-5.0); Alkaline Phosphatase 261 U/L (46-116); Anion Gap 10.7 mmol/L (3-11); BUN 22 mg/dL (7-18); Bilirubin, Total 0.48 mg/dL (0.2-1.0); CO2 21.3 mmol/L (21.0-32.0); CREATININE 1.2 mg/dL (0.70-1.30); Calcium 9.1 mg/dL (8.5-10.1); Chloride 99 mmol/L (98-107); Estimated GFR 69.23 (mL/min/1.73m2); Glucose 106 mg/dL (74-106); Magnesium 1.7 mg/dL (1.8-2.4); PHOSPHORUS 3.6 mg/dL (2.6-4.7); Sodium 131 mmol/L (136-145); Total Protein 7.4 g/dL (6.4-8.2)
[2024-05-30 13:44] LABS: Triglyceride 166 mg/dL (<150)
[2024-06-06 09:35] LABS: Abs Immature Grans 0.07 10^3/uL (0.0-0.06); Absolute Basophil Count 0.04 10^3/uL (0.0-0.2); Absolute Lymphocyte Count 1.98 10^3/uL (1.2-3.4); Absolute Neutrophil Count 9.69 10^3/uL (1.2-6.7); Basophils % 0.3 %; Eosinophils % 0.9 %; HGB 13.8 g/dL (13.5-17.5); Immature Grans % 0.5 %; Lymphocytes % 15.5 %; MCH 31.7 pg (27.0-33.0); MCHC 33.7 % (32.0-36.0); MCV 94 fL (80-95); MPV 10.6 fL (8.0-11.0); Neutrophils % 75.8 %; Platelet Count 320 10^3/uL (130-400); RBC 4.35 10^6/uL (4.36-5.78); RDW 13.2 % (11.8-14.1); RDW-SD 45.5 fL; WBC 12.79 10^3/uL (4.4-10.8)
[2024-06-06 09:36] LABS: Absolute Eosinophil Count 0.12 10^3/uL (0.0-0.7)
[2024-06-06 09:49] LABS: ALT 131 U/L (16-63); AST 43 U/L (15-37); Alkaline Phosphatase 233 U/L (46-116); Anion Gap 12.3 mmol/L (3-11); BUN 20 mg/dL (7-18); Bilirubin, Total 0.53 mg/dL (0.2-1.0); CO2 21.7 mmol/L (21.0-32.0); CREATININE 1.3 mg/dL (0.70-1.30); Calcium 9.6 mg/dL (8.5-10.1); Chloride 98 mmol/L (98-107); Estimated GFR 62.89 (mL/min/1.73m2); Glucose 132 mg/dL (74-106); Magnesium 1.6 mg/dL (1.8-2.4); Sodium 132 mmol/L (136-145); Total Protein 7.6 g/dL (6.4-8.2)
[2024-06-06 09:59] LABS: Triglyceride 132 mg/dL (<150)
[2024-06-09] MEDS: Normal Saline Flush 10 ML SYR IVP (11:28)
[2024-06-09 11:36] LABS: Abs Immature Grans 0.05 10^3/uL (0.0-0.06); Absolute Basophil Count 0.05 10^3/uL (0.0-0.2); Absolute Monocyte Count 0.78 10^3/uL (0.1-0.8); Basophils % 0.4 %; Eosinophils % 0.8 %; HCT 37.8 % (40.0-50.0); HGB 12.8 g/dL (13.5-17.5); Immature Grans % 0.4 %; Lymphocytes % 19.4 %; MCH 31.7 pg (27.0-33.0); MCHC 33.9 % (32.0-36.0); MCV 94 fL (80-95); MPV 10.4 fL (8.0-11.0); Platelet Count 288 10^3/uL (130-400); RBC 4.04 10^6/uL (4.36-5.78); RDW 13.6 % (11.8-14.1); RDW-SD 46.5 fL; WBC 13.02 10^3/uL (4.4-10.8)
[2024-06-09 11:38] LABS: Absolute Lymphocyte Count 2.53 10^3/uL (1.2-3.4)
[2024-06-09 12:15] LABS: ALT 80 U/L (16-63); AST 26 U/L (15-37); Albumin 3.5 g/dL (3.4-5.0); Alkaline Phosphatase 202 U/L (46-116); Anion Gap 8.4 mmol/L (3-11); BUN 22 mg/dL (7-18); CO2 27.6 mmol/L (21.0-32.0); CREATININE 1.2 mg/dL (0.70-1.30); Calcium 8.9 mg/dL (8.5-10.1); Chloride 97 mmol/L (98-107); Estimated GFR 69.23 (mL/min/1.73m2); Glucose 160 mg/dL (74-106); Magnesium 1.9 mg/dL (1.8-2.4); Potassium 4.4 mmol/L (3.5-5.1); Sodium 133 mmol/L (136-145); Total Protein 6.8 g/dL (6.4-8.2); Triglyceride 108 mg/dL (<150)
[2024-06-09 14:02] LABS: PHOSPHORUS 3.3 mg/dL (2.6-4.7)
[2024-06-13] MEDS: Normal Saline Flush 10 ML SYR IVP (13:15)
[2024-06-13 14:17] LABS: Abs Immature Grans 0.05 10^3/uL (0.0-0.06); Absolute Basophil Count 0.05 10^3/uL (0.0-0.2); Absolute Eosinophil Count 0.17 10^3/uL (0.0-0.7); Absolute Lymphocyte Count 2.58 10^3/uL (1.2-3.4); Absolute Monocyte Count 0.78 10^3/uL (0.1-0.8); Absolute Neutrophil Count 6.95 10^3/uL (1.2-6.7); Basophils % 0.5 %; Eosinophils % 1.6 %; HCT 34.9 % (40.0-50.0); HGB 11.5 g/dL (13.5-17.5); Immature Grans % 0.5 %; Lymphocytes % 24.4 %; MCH 31.4 pg (27.0-33.0); MCV 95 fL (80-95); MPV 10.9 fL (8.0-11.0); Monocytes % 7.4 %; Neutrophils % 65.6 %; Platelet Count 261 10^3/uL (130-400); RBC 3.66 10^6/uL (4.36-5.78); RDW 13.7 % (11.8-14.1); RDW-SD 48.7 fL; WBC 10.58 10^3/uL (4.4-10.8)
[2024-06-13 14:32] LABS: ALT 52 U/L (16-63); AST 26 U/L (15-37); Albumin 3.3 g/dL (3.4-5.0); Alkaline Phosphatase 196 U/L (46-116); Anion Gap 5.1 mmol/L (3-11); BUN 23 mg/dL (7-18); Bilirubin, Total 0.25 mg/dL (0.2-1.0); CO2 30.9 mmol/L (21.0-32.0); Calcium 8.8 mg/dL (8.5-10.1); Chloride 102 mmol/L (98-107); Estimated GFR 86.16 (mL/min/1.73m2); Glucose 92 mg/dL (74-106); Magnesium 1.7 mg/dL (1.8-2.4); Potassium 3.7 mmol/L (3.5-5.1); Sodium 138 mmol/L (136-145); Total Protein 6.2 g/dL (6.4-8.2); Triglyceride 113 mg/dL (<150)
[2024-06-13 14:42] LABS: PHOSPHORUS 3.5 mg/dL (2.6-4.7)
== END 2024-06-18 23:59 | disposition home or self-care (01) ==
LOC: INF 13:00
PROVIDERS: PCP Family Medicine; Visit Provider Family Medicine
DX: K50.90 Crohn's disease, unspecified, without complications (principal)
CPT/HCPCS: 36592; 80053; 83735; 84100; 84478; 85025

== ENCOUNTER 2024-07-18 01:04 | Outpatient (RCR) | payer MEDICARE, SELFPAY ==
--- OUTSIDE RECORDS SUMMARY | 2024-06-20 02:06 | XMS_ITS | Encounter Summary ---
Author Organization [facility] [place] [address] Care Team Providers Care Scrap Breaker Name Role Phone Natty Mckinney MD Primary Care Provider [phone] Encounter Details Date Type Department Care Team (Late st Contact Info) Description 05/06/2020 8:30 AM EDT Office Visit Radiation Oncology at [address] [phone] Santigao Arroyo MD [address] [place] [address] RADIATION ONCOLOGY [place], [place] [phone] Malignant neoplasm of prostate Social History Tobacco [...] Santiago Arroyo MD, MS Radiation Oncology ?? [facility] [phone] (paging clipper machine operator) Pager #[phone] ?? PATIENT IDENTIFICATION ? Name Krishan Monte [...] Start Date End Date 03/10/20 03/19/20 ?? SYNCHRONOUS MOTOR ASSEMBLER TREATMENT MANCILLA: ?? INTERVAL HISTORY Subjective: General [...] prostate documented in this encounter Care Teams Scrap Breaker Relationship Specialty Start Date End Date Natty Mckinney MD [address] [place] [address] PCP - General 10/11/10 documented as of this encounter
--- OUTSIDE RECORDS SUMMARY | 2024-06-20 02:06 | XMS_ITS | Encounter Summary ---
Author Organization [facility] [place] [address] Care Team Providers Care Release And Technical Records Clerk Name Role Phone Natty Mckinney MD Primary Care Provider [phone] Encounter Details Date Type Department Care Team (Late st Contact Info) Description 09/22/2021 11:00 AM EDT Office Visit Radiation Oncology at [address] [phone] Natty Lawton, LEADERSHIP DEVELOPMENT MANAGER [facility] [place] [address] Malignant neoplasm of prostate (Primary Dx) Social [...] from the original note were not included. [facility] [place] [address] Phone: RADIATION ONCOLOGY FOLLOW UP NOTE Date [...] Start Date End Date 03/10/20 03/19/20 ?? FOOD AND BEVERAGE INTERN TREATMENT MANCILLA: ?? Interim HPI: 04/07/21 second read bone scan /Shweta Hendrix notes Call to Dr Lopes patient's PCP to review the results of patient's recent bone scan and the secondread done by [facility] radiology. He is appreciative of the results. [...] THREE TIMES A DAY naloxone 4 mg/actuation [place], Non-Aerosol by Nasal route. nicotine (NICODERM CQ) [...] OTHER 10/08/2019 CT Guided Biopsy Other 10/08/2019 [facility] RAD CAT SCAN Family History Problem [...] the radiation therapy/prostate cancer Natty Lawton MSN, LEADERSHIP DEVELOPMENT MANAGER, WEB SERVICES MANAGER-C Nurse Practitioner Radiation Oncology documented in this encounter Plan of Treatment Not on file documented as of this encounter Visit Diagnoses Diagnosis Malignant neoplasm of prostate- Primary documented in this encounter Care Teams Release And Technical Records Clerk Relationship Specialty Start Date End Date Natty Mckinney MD [address] [place] [address] PCP - General 10/11/10 documented as of this encounter
--- OUTSIDE RECORDS SUMMARY | 2024-06-20 02:06 | XMS_ITS | Encounter Summary ---
Author Organization [facility] [place] [address] Care Team Providers Care Lean Facilitator Name Role Phone Natty Mckinney MD Primary Care Provider [phone] Encounter Details Date Type Department Care Team (Latest Contact Info) Description 10/10/2022 12:20 PM EST Ancillary Procedure [place] [address] Natty Lawton, SHIFT SUPERINTENDENT CAUSTIC CRESYLATE [facility] [place] [address] Malignant neoplasm of prostate Social History Tobacco [...] who have questions please contact the health critical care clinical nurse specialist that requested your imaging first. ? Electronically signed by: King Victoria MD, [facility] ([phone]), at 10/11/2022 2:55 PM Narrative 10/11/2022 2:55 PM EST EXAMINATION: REQUEST FOR 2ND READ CT ABDOMEN AND PELVIS CLINICAL HISTORY: sclerotic bone lesion L iliac. Report from [facility] inconsistent with one comment showing lesion more prominent in LAST READ and then impression with enlarging sclerotic lesion. Possible need for bone bx. PSA going down. TECHNIQUE: Reinterpretation of outside CT of the abdomen and pelvis performed with intravenous contrast at [facility]. Oral contrast was also administered. [...] Resulting Agency Comment Unexpected Finding Natty Lawton SHIFT SUPERINTENDENT CAUSTIC CRESYLATE IMG OUTSIDE INTERPRE TATION ORDERABLES documented in this encounter Visit Diagnoses Diagnosis Malignant neoplasm of prostate documented in this encounter Care Teams Lean Facilitator Relationship Specialty Start Date End Date Natty Mckinney MD [address] [place] [address] PCP - General 10/11/10 documented as of this encounter
--- OUTSIDE RECORDS SUMMARY | 2024-06-20 02:06 | XMS_ITS | Encounter Summary ---
Author Organization [facility] [place] [address] Care Team Providers Care Priming Machine Operator Name Role Phone Natty Mckinney MD Primary Care Provider [phone] Encounter Details Date Type Department Care Team (Late st Contact Info) Description 10/11/2022 Telephone [place] [address] Natty Lawton SUPERVISOR ELECTRON TUBE PROCESSING [facility] [place] [address] Social History Tobacco Use Types Packs/Day Years [...] GI evaluating his liver dz out of [facility]. He does not know the GI doctor's name. I have forwarded the imaging second read (Through Arun Lyle our [facility] law secretary) to Krishan's PCP. I tried to call her office again today but it is currently closed. However, Kyle will fax the report to her attn. Narrative & Impression EXAMINATION: REQUEST FOR 2ND READ CT ABDOMEN AND PELVIS ?? CLINICAL HISTORY: sclerotic bone lesion L iliac. Report from [facility] inconsistent with one comment showing lesion [...] have questions please contact the health hospice care consultant that requested your imaging first. Electronically signed by: King Victoria MD, [facility] ([phone]), at 10/11/2022 2:55 PM documented in this encounter Plan of Treatment Not on file documented as of this encounter Visit Diagnoses Diagnosis Malignant neoplasm of prostate- Primary documented in this encounter Care Teams Priming Machine Operator Relationship Specialty Start Date End Date Natty Mckinney MD [address] [place] [address] PCP - General 10/11/10 documented as of this encounter
--- OUTSIDE RECORDS SUMMARY | 2024-06-20 02:06 | XMS_ITS | Encounter Summary ---
Author Organization [facility] Address [facility] [place] [address] Care Team Providers Care Adult And Pediatric Neurologist Name Role Phone Natty Mckinney MD Primary Care Provider [phone] Encounter Details Date Type Department Care Team [...] on filedocumented in this encounter Care Teams Adult And Pediatric Neurologist Relationship Specialty Start Date End Date Natty Mckinney MD [address] [place] [address] PCP - General 10/11/10 documented as of this encounter
--- OUTSIDE RECORDS SUMMARY | 2024-06-20 02:06 | XMS_ITS | Encounter Summary ---
Author Organization [facility] [address] Care Team Providers Care Direct Marketing Analyst Name Role Phone Natty Mckinney MD Primary Care Provider [phone] Encounter Details Date Type Department Care Team (Late st Contact Info) Description 05/19/2020 Telephone Radiation Oncology at [address] [address] Arun Lyle Social History Tobacco [...] on filedocumented in this encounter Care Teams Direct Marketing Analyst Relationship Specialty Start Date End Date Natty Mckinney MD [address] [place] [address] PCP - General 10/11/10 documented as of this encounter
--- OUTSIDE RECORDS SUMMARY | 2024-06-20 02:06 | XMS_ITS | Encounter Summary ---
Author Organization [facility] [place] [address] Care Team Providers Care Pattern Shop Supervisor Name Role Phone Natty Mckinney MD Primary Care Provider [phone] Encounter Details Date Type Department Care Team (Late st Contact Info) Description 09/12/2023 Orders Only Radiation Oncology at [address] [address] Monica Bonds PA [facility] [address] [place] [address] Malignant neoplasm of prostate Social History Tobacco [...] prostate documented in this encounter Care Teams Pattern Shop Supervisor Relationship Specialty Start Date End Date Natty Mckinney MD [address] [place] [address] PCP - General 10/11/10 documented as of this encounter
--- OUTSIDE RECORDS SUMMARY | 2024-06-20 02:06 | XMS_ITS | Encounter Summary ---
Author Organization [facility] [place] [address] Care Team Providers Care Outboard Technician Name Role Phone Natty Mckinney MD Primary Care Provider [phone] Encounter Details Date Type Department Care Team (Late st Contact Info) Description 03/07/2020 Telephone Hematology/Oncology at [address] [address] Miriam Pitts Social History Tobacco [...] on filedocumented in this encounter Care Teams Outboard Technician Relationship Specialty Start Date End Date Natty Mckinney MD [address] [place] [address] PCP - General 10/11/10 documented as of this encounter
--- OUTSIDE RECORDS SUMMARY | 2024-06-20 02:06 | XMS_ITS | Encounter Summary ---
Author Organization [facility] [place] [address] Care Team Providers Care Top Dyeing Machine Loader Name Role Phone Natty Mckinney MD Primary Care Provider [phone] Encounter Details Date Type Department Care Team (Late st Contact Info) Description 09/28/2022 1:00 PM EST Office Visit Radiation Oncology at [address] [address] Natty Lawton, POWER WHEELCHAIR MECHANIC [facility] [place] [address] Malignant neoplasm of prostate (Primary Dx) Social [...] this encounter Progress Notes * Natty Lawton, POWER WHEELCHAIR MECHANIC - 09/28/2022 1:00 PM ESTSummary: 57 year old M with low- risk prostate cancer (cTx, PSA 7.2, Gl 6). Compl SBRT 03/19/20 No ADT Images from the original note were not included. [facility] [place] [address] Phone: RADIATION ONCOLOGY FOLLOW UP NOTE Date [...] Start Date End Date 03/10/20 03/19/20 ?? COFFEE SUPERVISOR TREATMENT MANCILLA: ?? Interim HPI: 04/07/21 second read bone scan: FADUMO, no osseous mets. ?? Medications 03/22/22 8034 Medication Sig Taking? celecoxib (CeleBREX) 200 mg [...] % Gel Apply topically. naloxone 4 mg/actuation [place], Non-Aerosol by Nasal route. Ostomy Supplies Misc [...] OTHER 10/08/2019 CT Guided Biopsy Other 10/08/2019 [facility] RAD CAT SCAN Family History Problem Relation [...] with his PCP who is based in [facility] system. She follows his vit and mineral [...] the radiation therapy/prostate cancer Natty Lawton MSN, POWER WHEELCHAIR MECHANIC, AVIONICS SUPERVISOR-C Nurse Practitioner Radiation Oncology documented in this encounter Plan of Treatment Not on file documented as of this encounter Visit Diagnoses Diagnosis Malignant neoplasm of prostate- Primary documented in this encounter Care Teams Top Dyeing Machine Loader Relationship Specialty Start Date End Date Natty Mckinney MD [address] [place] [address] PCP - General 10/11/10 documented as of this encounter
--- OUTSIDE RECORDS SUMMARY | 2024-06-20 02:06 | XMS_ITS | Encounter Summary ---
Author Organization [facility] Address [facility] [place] [address] Care Team Providers Care Kelp Gatherer Name Role Phone Natty Mckinney MD Primary Care Provider [phone] Reason for Visit * Reason Comments Establish Care B OA of CMC joint * Consultation (Routine) - Closed Specialty Diagnoses / Procedures Referred By Contac t Referred To Contact Orthopaedics Diagnoses Osteoarthritis of carpometacarpal (CMC) joint of thumb, unspecified laterality, unspecified osteoarthritis type Ulnar abutment syndrome of both wrists Ector Irizarry MD [address] [place] [address] Willie Rivas MD [facility] [place] [address] Referral ID Status Reason Start Date Expiration Date V isits Requested Visits Authorized [id number] Closed Consult, Test & Treat PCP Updated and/or Approved 02/08/2022 02/08/2023 6 6 Encounter Details Date Type Department Care Team (Latest Contact Info) Description 03/22/2022 1:15 PM EDT Office [place] [address] Willie Rivas MD [facility] ORTHOPAEDIC SURGERY [place], [place] [id number] Primary osteoarthritis of both first carpometacarpal joints [...] pack of cigarettes by his surgeon at [facility]. Examination reveals a pleasant alert male [...] most recent hand x-rays were reviewed from [facility] and were done on10/07/2020. These show [...] basal joint fluoroscopically guided steroid injections in [place] should the patient decide to move forth [...] hand documented in this encounter Care Teams Kelp Gatherer Relationship Specialty Start Date End Date Natty Mckinney MD [address] [place] [address] PCP - General 10/11/10 documented as of this encounter
--- OUTSIDE RECORDS SUMMARY | 2024-06-20 02:06 | XMS_ITS | Encounter Summary ---
Author Organization [facility] [place] [address] Care Team Providers Care Net Ui Developer Name Role Phone Natty Mckinney MD Primary Care Provider [phone] Encounter Details Date Type Department Care Team (Late st Contact Info) Description 05/06/2020 8:00 AM EDT TH Visit (TeleHealth) Radiation Oncology at [address] [phone] Santiago Arroyo MD [address] [place] [address] RADIATION ONCOLOGY [place], [place] [id number] Malignant neoplasm of prostate Social History Tobacco [...] prostate documented in this encounter Care Teams Net Ui Developer Relationship Specialty Start Date End Date Natty Mckinney MD [address] [place] [address] PCP - General 10/11/10 documented as of this encounter
--- OUTSIDE RECORDS SUMMARY | 2024-06-20 02:06 | XMS_ITS | Encounter Summary ---
Author Organization [facility] [place] [address] Care Team Providers Care Emergency Vehicle Operations Instructor Name Role Phone Natty Mckinney MD Primary Care Provider [phone] Encounter Details Date Type Department Care Team (Late st Contact Info) Description 04/29/2020 Telephone Radiation Oncology at [address] [phone] Arun Lyle Social History Tobacco [...] on filedocumented in this encounter Care Teams Emergency Vehicle Operations Instructor Relationship Specialty Start Date End Date Natty Mckinney MD [address] [place] [address] PCP - General 10/11/10 documented as of this encounter
--- OUTSIDE RECORDS SUMMARY | 2024-06-20 02:06 | XMS_ITS | Encounter Summary ---
Author Organization [facility] Address [facility] [place] [address] Care Team Providers Care Behavioral Psychologist Name Role Phone Natty Mckinney MD Primary Care Provider [phone] Encounter Details Date Type Department Care Team (Late st Contact Info) Description 01/28/2020 Notes Only Radiation Oncology at [address] [phone] Nancy Sandoval MSW OFFICE OF [...] in the area and his daughter in [place] as his primary supports. Living Situation/Daily Activities/Transportation: [...] at this time. Plan: Informed pt of EXAMINING CHAIR ASSEMBLER availability and will follow for support and resources. documented in this encounter Plan of Treatment Not on file documented as of this encounter Visit Diagnoses Not on filedocumented in this encounter Care Teams Behavioral Psychologist Relationship Specialty Start Date End Date Natty Mckinney MD [address] [place] [address] PCP - General 10/11/10 documented as of this encounter
--- OUTSIDE RECORDS SUMMARY | 2024-06-20 02:06 | XMS_ITS | Encounter Summary ---
Author Organization [facility] [place] [address] Care Team Providers Care Mattress Stripper Name Role Phone Natty Mckinney MD Primary Care Provider [phone] Encounter Details Date Type Department Care Team (Late st Contact Info) Description 12/25/2023 Telephone Hematology/Oncology at [address] [phone] Rona Cornell Social History Tobacco [...] on filedocumented in this encounter Care Teams Mattress Stripper Relationship Specialty Start Date End Date Natty Mckinney MD [address] [place] [address] PCP - General 10/11/10 documented as of this encounter
--- OUTSIDE RECORDS SUMMARY | 2024-06-20 02:06 | XMS_ITS | Encounter Summary ---
Author Organization [facility] [place] [address] Care Team Providers Care Mines Safety Engineer Name Role Phone Natty Mckinney MD Primary Care Provider [phone] Encounter Details Date Type Department Care Team (Late st Contact Info) Description 05/06/2020 Telephone Radiation Oncology at [address] [phone] Arun Lyle Social History Tobacco [...] on filedocumented in this encounter Care Teams Mines Safety Engineer Relationship Specialty Start Date End Date Natty Mckinney MD [address] [place] [address] PCP - General 10/11/10 documented as of this encounter
--- OUTSIDE RECORDS SUMMARY | 2024-06-20 02:06 | XMS_ITS | Encounter Summary ---
Author Organization [facility] [place] [address] Care Team Providers Care Filing Clerk Name Role Phone Natty Mckinney MD Primary Care Provider [phone] Encounter Details Date Type Department Care Team (Late st Contact Info) Description 05/06/2020 Telephone Radiation Oncology at [address] [address] Tamara Boone RN Social [...] AM EDT Radiation Oncology Nurse Telephone Note [facility] [place], [place] ----- Message from Santiago Arroyo MD [...] on filedocumented in this encounter Care Teams Filing Clerk Relationship Specialty Start Date End Date Natty Mckinney MD [address] [place] [address] PCP - General 10/11/10 documented as of this encounter
--- OUTSIDE RECORDS SUMMARY | 2024-06-20 02:06 | XMS_ITS | Encounter Summary ---
Author Organization [facility] [place] [address] Care Team Providers Care Venetian Blind Tape Cutter Name Role Phone Natty Mckinney MD Primary Care Provider [phone] Encounter Details Date Type Department Care Team (Latest Contact Info) Description 03/12/2020 10:00 AM EDT Procedure visit Radiation Oncology at [address] [phone] Benito Samayoa MD [facility] [place] [address] Malignant neoplasm of prostate Social History Tobacco [...] prostate documented in this encounter Care Teams Venetian Blind Tape Cutter Relationship Specialty Start Date End Date Natty Mckinney MD [address] [place] [address] PCP - General 10/11/10 documented as of this encounter
--- OUTSIDE RECORDS SUMMARY | 2024-06-20 02:06 | XMS_ITS | Encounter Summary ---
Author Organization [facility] [place] [address] Care Team Providers Care Tubing Tester Name Role Phone Natty Mckinney MD Primary Care Provider Encounter Details Date Type Department Care Team (Late st Contact Info) Description 05/11/2020 Telephone Radiation Oncology at [address] [phone] Tamara Boone RN Social History [...] EDT Radiation Oncology Nurse Telephone Note [facility] [place], [place] Telephone call to patient to inquire [...] on filedocumented in this encounter Care Teams Tubing Tester Relationship Specialty Start Date End Date Natty Mckinney MD [address] [place] [address] PCP - General 10/11/10 documented as of this encounter
--- OUTSIDE RECORDS SUMMARY | 2024-06-20 02:06 | XMS_ITS | Encounter Summary ---
Author Organization [facility] [place] [address] Care Team Providers Care Pipe Smoker Machine Operator Name Role Phone Natty Mckinney MD Primary Care Provider [phone] Encounter Details Date Type Department Care Team (Late st Contact Info) Description 09/03/2020 9:00 AM EDT Office Visit Radiation Oncology at [address] [phone] Akila Ortiz APRN [facility] [place] [address] Malignant neoplasm of prostate Social History Tobacco [...] ? Akila Ortiz APRN Radiation Oncology ?? [facility] ?? PATIENT IDENTIFICATION ? Name Krishan Monte [...] Start Date End Date 03/10/20 03/19/20 ?? SOFTWARE ENGINEER TREATMENT MANCILLA: ?? INTERVAL HISTORY Subjective: General [...] (ongoing for multiple years). MEDS Medications 09/03/20 0902 Medication Sig Taking? cyanocobalamin, vitamin B-12, 1,000 [...] prostate documented in this encounter Care Teams Pipe Smoker Machine Operator Relationship Specialty Start Date End Date Natty Mckinney MD [address] [place] [address] PCP - General 10/11/10 documented as of this encounter
--- OUTSIDE RECORDS SUMMARY | 2024-06-20 02:06 | XMS_ITS | Encounter Summary ---
Author Organization [facility] [place] [address] Care Team Providers Care Architectural Drafting Instructor Name Role Phone Natty Mckinney MD Primary Care Provider [phone] Encounter Details Date Type Department Care Team (Late st Contact Info) Description 07/08/2021 Orders [place] [address] Natty Lawton APRN [facility] [place] [address] Malignant neoplasm of prostate (Primary Dx) Social [...] Primary documented in this encounter Care Teams Architectural Drafting Instructor Relationship Specialty Start Date End Date Natty Mckinney MD [address] [place] [address] PCP - General 10/11/10 documented as of this encounter
--- OUTSIDE RECORDS SUMMARY | 2024-06-20 02:06 | XMS_ITS | Clinical Summary ---
Author Organization [facility] Address [facility] [place] [address] Care Team Providers Care Detail Sergeant Name Role Phone Natty Mckinney MD Primary Care Provider [phone] Allergies No known active allergies Medications Medication [...] Apply topically. 02/07/2021 Active naloxone 4 mg/actuation [place], Non-Aerosol by Nasal route. 02/07/2021 Active Ostomy [...] capacity to make decision: Yes Care Teams Detail Sergeant Relationship Specialty Start Date End Date Natty Mckinney MD [address] [place] [address] PCP - General 10/11/10
--- OUTSIDE RECORDS SUMMARY | 2024-06-20 02:06 | XMS_ITS | Encounter Summary ---
Author Organization [facility] [place] [address] Care Team Providers Care Stereoptic Projection Topographer Name Role Phone Natty Mckinney MD Primary Care Provider [phone] Encounter Details Date Type Department Care Team (Late st Contact Info) Description 04/26/2020 Telephone Radiation Oncology at [address] [phone] Tamara Boone RN Social History [...] Oncology Nurse Telephone Note [facility] [place], [place] ----- Message from Santiago Arroyo MD [...] this. Tamara 04/26/20 16:10 Telephone call to [facility] ( [place], [place]) Natty Mckinney MD [phone] Spoke to nurse, Yanni. I read her [...] on filedocumented in this encounter Care Teams Stereoptic Projection Topographer Relationship Specialty Start Date End Date Natty Mckinney MD [address] [place] [address] PCP - General 10/11/10 documented as of this encounter
--- OUTSIDE RECORDS SUMMARY | 2024-06-20 02:06 | XMS_ITS | Encounter Summary ---
Author Organization [facility] [place] [address] Care Team Providers Care Toy Assembler Wood Name Role Phone Natty Mckinney MD Primary Care Provider [phone] Encounter Details Date Type Department Care Team (Late st Contact Info) Description 05/13/2020 Telephone Radiation Oncology at [address] [phone] Arun Lyle Social History Tobacco [...] on filedocumented in this encounter Care Teams Toy Assembler Wood Relationship Specialty Start Date End Date Natty Mckinney MD [address] [place] [address] PCP - General 10/11/10 documented as of this encounter
--- OUTSIDE RECORDS SUMMARY | 2024-06-20 02:06 | XMS_ITS | Encounter Summary ---
Author Organization [place] [id number] Care Team Providers Care Wastewater Supervisor Name Role Phone Natty Mckinney MD Primary Care Provider [phone] Reason for Referral * Consultation (Routine) - Closed Specialty Diagnoses / Procedures Referred By Contac t Referred To Contact Gastroenterology Diagnoses Crohn's disease with complication, unspecified gastrointestinal tract location Abdominal pain, unspecified abdominal location Weight loss, unintentional IBD- crohns disease/ abd pain/ wt loss Natty Mckinney MD [address] [place] [address] [facility] [address] [place] [phone] Referral ID Status Reason Start Date Expiration Date V isits Requested Visits Authorized [id number] Closed Consult, Test & Treat PCP Updated and/or Approved 01/16/2023 01/16/2024 6 6 Encounter Details Date Type Department Care Team (Latest Contact Info) Description 01/16/2023 Transcribe Orders eDH Incoming Referrals [phone] Natty Mckinney MD [address] [place], [place] [id number] Crohn's disease with complication, unspecified gastrointestinal tract [...] weight documented in this encounter Care Teams Wastewater Supervisor Relationship Specialty Start Date End Date Natty Mckinney MD [address] [place] [address] PCP - General 10/11/10 documented as of this encounter
--- OUTSIDE RECORDS SUMMARY | 2024-06-20 02:06 | XMS_ITS | Encounter Summary ---
Author Organization [facility] [place] [address] Care Team Providers Care Elevator Conductor Name Role Phone Natty Mckinney MD Primary Care Provider [phone] Encounter Details Date Type Department Care Team (Late st Contact Info) Description 10/07/2020 Ancillary Procedure [facility] [place] [facility] [place] [phone] Natty Mckinney MD [address] [place] [address] Social History Tobacco Use Types Packs/Day Years [...] DX Hand (10/07/2020 12:00 AM EST) Narrative [facility] - 01/31/2022 11:11 AM EDT This exam is auto-finalizing. It's purpose is for storage only. Natty Mckinney MD IMG FILM LIBRARY ORD ERABLES DH RAD [place], [place] documented in this encounter Visit Diagnoses Not on filedocumented in this encounter Care Teams Elevator Conductor Relationship Specialty Start Date End Date Natty Mckinney MD [address] [place] [address] PCP - General 10/11/10 documented as of this encounter
--- OUTSIDE RECORDS SUMMARY | 2024-06-20 02:06 | XMS_ITS | Encounter Summary ---
Author Organization [facility] [place] [address] Care Team Providers Care Mailroom Supervisor Name Role Phone Natty Mckinney MD Primary Care Provider [phone] Encounter Details Date Type Department Care Team (Latest Contact Info) Description 04/06/2021 1:35 PM EDT Ancillary Procedure [place] [phone] Shweta Hendrix, [address] RADIATION ONCOLOGY [place], [place] [id number] Malignant neoplasm of prostate Social History Tobacco [...] who have questions please contact the health career development director that requested your imaging first. ? 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 Shweta Hendrix APRN IMG OUTSIDE INTERPRE TATION ORDERABLES documented in this encounter Visit Diagnoses Diagnosis Malignant neoplasm of prostate documented in this encounter Care Teams Mailroom Supervisor Relationship Specialty Start Date End Date Natty Mckinney MD [address] [place] [address] PCP - General 10/11/10 documented as of this encounter
--- OUTSIDE RECORDS SUMMARY | 2024-06-20 02:06 | XMS_ITS | Encounter Summary ---
Author Organization Formerly [facility] [place] [address] Care Team Providers Care Consular Officer Name Role Phone Natty Mckinney MD Primary Care Provider [phone] Encounter Details Date Type Department Care Team (Late st Contact Info) Description 02/03/2021 Ancillary Procedure [place] [address] Natty Lawton APRN [facility] [place] [address] Social History Tobacco Use Types Packs/Day Years [...] & Pelvis (02/03/2021 12:00 AM EDT) Narrative [facility] - 10/11/2022 1:58 PM EST This exam is auto-finalizing. It's purpose is for storage only. Natty Lawton APRN IMG FILM LIBRARY ORD ERABLES DH RAD [place] documented in this encounter Visit Diagnoses Not on filedocumented in this encounter Care Teams Consular Officer Relationship Specialty Start Date End Date Natty Mckinney MD [address] [place] [address] PCP - General 10/11/10 documented as of this encounter
--- OUTSIDE RECORDS SUMMARY | 2024-06-20 02:06 | XMS_ITS | Encounter Summary ---
Author Organization [facility] [place] [address] Care Team Providers Care Medical Corps Officer Name Role Phone Natty Mckinney MD Primary Care Provider [phone] Encounter Details Date Type Department Care Team (Late st Contact Info) Description 2020 11:30 AM EDT TH Visit (TeleHealth) Radiation Oncology at [address] [phone] Santiago Arroyo MD [address] [place] [address] RADIATION ONCOLOGY [place], [place] [address] Malignant neoplasm of prostate Social History Tobacco [...] Santiago Arroyo MD, MS Radiation Oncology ?? [facility] [phone] (paging instant print operator) Pager #[phone] ?? PATIENT IDENTIFICATION ? Name Krishan Monte [...] Start Date End Date 03/10/20 03/19/20 ?? DYE TANK TENDER TREATMENT MANCILLA: ?? INTERVAL HISTORY Subjective: General [...] prostate documented in this encounter Care Teams Medical Corps Officer Relationship Specialty Start Date End Date Natty Mckinney MD [address] [place] [address] PCP - General 10/11/10 documented as of this encounter
--- OUTSIDE RECORDS SUMMARY | 2024-06-20 02:06 | XMS_ITS | Encounter Summary ---
Author Organization Formerly [facility] [place] [address] Care Team Providers Care Ppa Teacher Name Role Phone Natty Mckinney MD Primary Care Provider [phone] Encounter Details Date Type Department Care Team (Late st Contact Info) Description 12/04/2023 Telephone Radiation Oncology at [address] [address] Rona Cornell Social History Tobacco [...] him a voicemail to call back at [phone]. documented in this encounter Plan of Treatment Not on file documented as of this encounter Visit Diagnoses Not on filedocumented in this encounter Care Teams Ppa Teacher Relationship Specialty Start Date End Date Natty Mckinney MD [address] [place], [place] [address] PCP - General 10/11/10 documented as of this encounter
--- OUTSIDE RECORDS SUMMARY | 2024-06-20 02:06 | XMS_ITS | Encounter Summary ---
Author Organization [facility] Address [facility] [place] [address] Care Team Providers Care Telegraph Office Manager Name Role Phone Natty Mckinney MD Primary Care Provider [phone] Reason for Referral * Consultation (Routine) - Canceled Specialty Diagnoses / Procedures Referred By Contangela guerrero Referred To Contact Internal Medicine Diagnoses Weight loss, unintentional Crohn's disease with complication, unspecified gastrointestinal tract location Natty Mckinney MD [address] [place] [address] [facility] Internal Medicine [address] [place] [address] Referral ID Status Reason Start Date Expiration Date Visits Requested Visits Authorized [id number] Canceled Continuity of Care PCP Updated and/or Approved 01/16/2023 01/16/2024 12 12 Encounter Details Date Type Department Care Team (Latest Contact Info) Description 01/16/2023 Transcribe Orders eD Incoming Referrals [phone] Natty Mckinney MD [address] [place] [address] Weight loss, unintentional; Crohn's disease [...] location documented in this encounter Care Teams Telegraph Office Manager Relationship Specialty Start Date End Date Natty Mckinney MD [address] [place] [address] PCP - General 10/11/10 documented as of this encounter
--- OUTSIDE RECORDS SUMMARY | 2024-06-20 02:06 | XMS_ITS | Encounter Summary ---
Author Organization Formerly [facility] [place] [address] Care Team Providers Care Care Nurse Rn Name Role Phone Natty Mckinney MD Primary Care Provider [phone] Encounter Details Date Type Department Care Team (Late st Contact Info) Description 12/10/2023 Telephone Radiation Oncology at [address] [address] Rona Cornell Social History Tobacco [...] to contact us to reschedule at the [phone] number. documented in this encounter Plan of Treatment Not on file documented as of this encounter Visit Diagnoses Not on filedocumented in this encounter Care Teams Care Nurse Rn Relationship Specialty Start Date End Date Natty Mckinney MD [address] [place] [address] PCP - General 10/11/10 documented as of this encounter
--- OUTSIDE RECORDS SUMMARY | 2024-06-20 02:06 | XMS_ITS | Encounter Summary ---
Author Organization Formerly [facility] [place] [address] Care Team Providers Care Edge Bander Hand Name Role Phone Natty Mckinney MD Primary Care Provider [phone] Encounter Details Date Type Department Care Team (Late st Contact Info) Description 04/06/2021 Telephone Radiation Oncology at [address] [phone] Shweta Hendrix COMPOSITE SCIENCE TEACHER [address] [place] [address] DR RADIATION ONCOLOGY [place], [place] [phone] Social History Tobacco Use Types Packs/Day Years [...] bone scan and the secondread done by [facility] radiology. She is appreciative of the results. [...] on filedocumented in this encounter Care Teams Edge Bander Hand Relationship Specialty Start Date End Date Natty Mckinney MD [address] [place] [address] PCP - General 10/11/10 documented as of this encounter
--- OUTSIDE RECORDS SUMMARY | 2024-06-20 02:06 | XMS_ITS | Encounter Summary ---
Author Organization [facility] [place] [address] Care Team Providers Care Glass Furnace Tender Name Role Phone Natty Mckinney MD Primary Care Provider Encounter Details Date Type Department Care Team (Late st Contact Info) Description 03/28/2022 Telephone Radiation Oncology at [address] [phone] Rona Cornell Social History Tobacco [...] him to return a call to the [facility] office to confirm if he has gone for recent lab work. Labs are required for his 6M FUV with Natty Lawton. documented in this encounter Plan of Treatment Not on file documented as of this encounter Visit Diagnoses Not on filedocumented in this encounter Care Teams Glass Furnace Tender Relationship Specialty Start Date End Date Natty Mckinney MD [address] [place] [address] PCP - General 10/11/10 documented as of this encounter
--- OUTSIDE RECORDS SUMMARY | 2024-06-20 02:06 | XMS_ITS | Encounter Summary ---
Author Organization [facility] [place] [address] Care Team Providers Care Web Production Designer Name Role Phone Natty Mckinney MD Primary Care Provider [phone] Encounter Details Date Type Department Care Team (Late st Contact Info) Description 03/15/2020 8:30 AM EDT Procedure visit Radiation Oncology at [address] [phone] Santiago Arroyo MD [address] [place] [address] RADIATION ONCOLOGY [place], [place] [id number] Malignant neoplasm of prostate Social History Tobacco [...] prostate documented in this encounter Care Teams Web Production Designer Relationship Specialty Start Date End Date Natty Mckinney MD [address] [place] [address] PCP - General 10/11/10 documented as of this encounter
--- OUTSIDE RECORDS SUMMARY | 2024-06-20 02:06 | XMS_ITS | Encounter Summary ---
Author Organization [facility] [place] [address] Care Team Providers Care Hardware Manager Name Role Phone Natty Mckinney MD Primary Care Provider [phone] Encounter Details Date Type Department Care Team (Late st Contact Info) Description 05/17/2020 Telephone Radiation Oncology at [address] [phone] Tamara Boone RN Social History [...] Note [facility] [place], [place] ----- Message from Santiago Arroyo MD [...] on filedocumented in this encounter Care Teams Hardware Manager Relationship Specialty Start Date End Date Natty Mckinney MD [address] [place] [address] PCP - General 10/11/10 documented as of this encounter
--- OUTSIDE RECORDS SUMMARY | 2024-06-20 02:06 | XMS_ITS | Encounter Summary ---
Author Organization [facility] [place] [address] Care Team Providers Care Flat Locker Name Role Phone Natty Mckinney MD Primary Care Provider [phone] Encounter Details Date Type Department Care Team (Late st Contact Info) Description 03/17/2020 2:15 PM EDT Procedure visit Radiation Oncology at [address] [phone] Santiago Arroyo MD [address] [place] [address] RADIATION ONCOLOGY [place], [place] [phone] Malignant neoplasm of prostate Social History Tobacco [...] prostate documented in this encounter Care Teams Flat Locker Relationship Specialty Start Date End Date Natty Mckinney MD [address] [place] [address] PCP - General 10/11/10 documented as of this encounter
--- OUTSIDE RECORDS SUMMARY | 2024-06-20 02:06 | XMS_ITS | Encounter Summary ---
Author Organization [facility] [place] [address] Care Team Providers Care Missile Inspector Name Role Phone Natty Mckinney MD Primary Care Provider Encounter Details Date Type Department Care Team (Late st Contact Info) Description 10/10/2022 Telephone [place] [address] Natty Lawton APRN [facility] [place] [address] Social History Tobacco Use Types Packs/Day Years [...] in Pee's L hip. The report from [facility] is inaccurate and states on one [...] who have questions please contact the health veterinarian laboratory animal care that requested your imaging first. ? Electronically signed by: King Victoria MD, [facility] ([phone]), at 10/11/2022 2:55 PM Narrative 10/11/2022 2:55 PM EST EXAMINATION: REQUEST FOR 2ND READ CT ABDOMEN AND PELVIS CLINICAL HISTORY: sclerotic bone lesion L iliac. Report from [facility] inconsistent with one comment showing lesion more prominent in LAST READ and then impression with enlarging sclerotic lesion. Possible need for bone bx. PSA going down. TECHNIQUE: Reinterpretation of outside CT of the abdomen and pelvis performed with intravenous contrast at [facility]. Oral contrast was also administered. Arterial [...] lesions identified. Resulting Agency Comment Unexpected Finding aNtty Lawton APRN IMG OUTSIDE INTERPRE TATION ORDERABLES documented in this encounter Visit Diagnoses Diagnosis Malignant neoplasm of prostate- Primary Malignant neoplasm of prostate documented in this encounter Care Teams Missile Inspector Relationship Specialty Start Date End Date Natty Mckinney MD [address] [place] [address] PCP - General 10/11/10 documented as of this encounter
--- OUTSIDE RECORDS SUMMARY | 2024-06-20 02:06 | XMS_ITS | Encounter Summary ---
Author Organization [facility] [place] [address] Care Team Providers Care Infrastructure Manager Name Role Phone Natty Mckinney MD Primary Care Provider [phone] Encounter Details Date Type Department Care Team (Late st Contact Info) Description 09/22/2022 Ancillary Procedure [place] [phone] Natty Mckinney MD [address] [place] [address] Social History Tobacco Use Types Packs/Day Years [...] IMG FILM LIBRARY ORD ERABLES DH RAD [place] documented in this encounter Visit Diagnoses Not on filedocumented in this encounter Care Teams Infrastructure Manager Relationship Specialty Start Date End Date Natty Mckinney MD [address] [place] [address] PCP - General 10/11/10 documented as of this encounter
--- OUTSIDE RECORDS SUMMARY | 2024-06-20 02:06 | XMS_ITS | Encounter Summary ---
Author Organization [facility] [place] [address] Care Team Providers Care Numerical Control Tool Programmer Name Role Phone Natty Mckinney MD Primary Care Provider [phone] Encounter Details Date Type Department Care Team (Late st Contact Info) Description 03/14/2020 Telephone Radiation Oncology at [address] [phone] Arun Lyle Social History Tobacco [...] on filedocumented in this encounter Care Teams Numerical Control Tool Programmer Relationship Specialty Start Date End Date Natty Mckinney MD [address] [place] [address] PCP - General 10/11/10 documented as of this encounter
--- OUTSIDE RECORDS SUMMARY | 2024-06-20 02:06 | XMS_ITS | Encounter Summary ---
Author Organization [facility] [place] [address] Care Team Providers Care Workflow Developer Name Role Phone Natty Mckinney MD Primary Care Provider [phone] Encounter Details Date Type Department Care Team (Late st Contact Info) Description 03/10/2020 2:15 PM EDT Procedure visit Radiation Oncology at [address] [phone] Santiago Arroyo MD [address] [place] [address] RADIATION ONCOLOGY [place], [place] [phone] Malignant neoplasm of prostate Social History Tobacco [...] Note 03/07/20 Santiago Arroyo MD Radiation Oncology [facility] [phone] (paging boarding machine operator) PATIENT IDENTIFICATION Name Krishan Monte [...] prostate documented in this encounter Care Teams Workflow Developer Relationship Specialty Start Date End Date Natty Mckinney MD [address] [place] [address] PCP - General 10/11/10 documented as of this encounter
--- OUTSIDE RECORDS SUMMARY | 2024-06-20 02:06 | XMS_ITS | Encounter Summary ---
Author Organization [facility] [place] [address] Care Team Providers Care Macaroni Maker Name Role Phone Natty Mckinney MD Primary Care Provider [phone] Encounter Details Date Type Department Care Team (Latest Contact Info) Description 03/19/2020 11:15 AM EDT Procedure visit Radiation Oncology at [address] [phone] Martínez Johnson MD [facility] [address] Malignant neoplasm of prostate Social History Tobacco [...] upon arrival to clinic by Edwige Vargas URANIUM PROCESSING SUPERVISOR Resp 16 Wt 70.7 kg (155 lb [...] prostate documented in this encounter Care Teams Macaroni Maker Relationship Specialty Start Date End Date Natty Mckinney MD [address] [place] [address] PCP - General 10/11/10 documented as of this encounter
--- OUTSIDE RECORDS SUMMARY | 2024-06-20 02:06 | XMS_ITS | Encounter Summary ---
Author Organization [facility] [place] [address] Care Team Providers Care Revenue Stamper Name Role Phone Natty Mckinney MD Primary Care Provider [phone] Reason for Visit * Reason Comments Prostate Cancer Encounter Details Date Type Department Care Team (Late st Contact Info) Description 02/09/2021 1:45 PM EDT TH Visit (TeleHealth) Radiation Oncology at [address] [phone] Shweta Hendrix APRN [address] [place] [address] RADIATION ONCOLOGY [place], [place] [phone] Malignant neoplasm of prostate Social History Tobacco [...] Message was left for patient to call [facility] to reschedule documented in this encounter Plan of Treatment Not on file documented as of this encounter Visit Diagnoses Diagnosis Malignant neoplasm of prostate documented in this encounter Care Teams Revenue Stamper Relationship Specialty Start Date End Date Natty Mckinney MD [address] [place] [address] PCP - General 10/11/10 documented as of this encounter
--- OUTSIDE RECORDS SUMMARY | 2024-06-20 02:06 | XMS_ITS | Encounter Summary ---
Author Organization [facility] [place] [address] Care Team Providers Care Oil And Gas Drafter Name Role Phone Natty Mckinney MD Primary Care Provider [phone] Encounter Details Date Type Department Care Team (Late st Contact Info) Description 05/26/2020 Telephone Radiation Oncology at [address] [phone] Tamara Boone RN Social History [...] PM EDT Radiation Oncology Nurse Telephone Note [place], [place] Patient states that he is changing his pharmacy from [facility] to [facility]. He asked that the Dexamethasone 1 mg and Flomax prescriptions be sent to [facility]. He ran out of the Flomax yesterday and feels it does help He is still having some flow problems with urine . It takes a while to empty bladder. Denies straining. Dysuria is now resolved, but flow still an issue. Prescriptions for these medications were sent to [facility] per his request. Dr Arroyo informed of this via this note. documented in this encounter Plan of Treatment Not on file documented as of this encounter Visit Diagnoses Diagnosis Malignant neoplasm of prostate documented in this encounter Care Teams Oil And Gas Drafter Relationship Specialty Start Date End Date Natty Mckinney MD [address] [place] [address] PCP - General 10/11/10 documented as of this encounter
--- OUTSIDE RECORDS SUMMARY | 2024-06-20 02:06 | XMS_ITS | Encounter Summary ---
Author Organization [facility] Address [facility] [place] [address] Care Team Providers Care Group Segment Consultant Name Role Phone Natty Mckinney MD Primary Care Provider [phone] Encounter Details Date Type Department Care Team (Latest Contact Info) Description 01/17/2022 9:00 AM EST Ext Surgery or Single Event [facility] [address] [facility] [place] [address] Cornelius Sandoval MD [facility] [place] [address] Dyspnea, unspecified type Social History Tobacco Use [...] type documented in this encounter Care Teams Group Segment Consultant Relationship Specialty Start Date End Date Natty Mckinney MD [address] [place] [address] PCP - General 10/11/10 documented as of this encounter
--- OUTSIDE RECORDS SUMMARY | 2024-06-20 02:06 | XMS_ITS | Encounter Summary ---
Author Organization [facility] [place] [address] Care Team Providers Care Clinical Nurse Name Role Phone Natty Mckinney MD Primary Care Provider [phone] Encounter Details Date Type Department Care Team (Late st Contact Info) Description 05/13/2020 8:00 AM EDT TH Visit (TeleHealth) Radiation Oncology at [address] [phone] Santiago Arroyo MD [address] [place] [address] RADIATION ONCOLOGY [place], [place] [address] Malignant neoplasm of prostate Social History Tobacco [...] ?? [facility] [phone] (paging border machine operator) Pager #[phone] ?? PATIENT IDENTIFICATION ? Name Krishan Monte [...] Start Date End Date 03/10/20 03/19/20 ?? MIXING OPERATOR TREATMENT MANCILLA: ?? INTERVAL HISTORY Subjective: General [...] prostate documented in this encounter Care Teams Clinical Nurse Relationship Specialty Start Date End Date Natty Mckinney MD [address] [place] [address] PCP - General 10/11/10 documented as of this encounter
--- OUTSIDE RECORDS SUMMARY | 2024-06-20 02:06 | XMS_ITS | Encounter Summary ---
[place] [address] Care Team Providers Care Industrial Gas Fitter Helper Name Role Phone Natty Mckinney MD Primary Care Provider [phone] Reason for Visit * - Closed Specialty Diagnoses / Procedures Referred By Contac t Referred To Contact Procedures Film Library- Storage Only nuclear medicine Natty Mckinney MD [address] [place] [address] Referral ID Status Reason Start Date Expiration Date Visits Re quested Visits Authorized [id number] Closed 03/31/2021 03/31/2022 1 1 Encounter Details Date Type Department Care Team (Late st Contact Info) Description 03/30/2021 Ancillary Procedure [place] [address] Natty Mckinney MD [address] [place] [address] Social History Tobacco Use Types [...] FILM LIBRARY ORD ERABLES Performing Organization Address City/State/[facility] Co de Phone Number [place], [place] documented in this encounter Visit Diagnoses Not on filedocumented in this encounter Care Teams Industrial Gas Fitter Helper Relationship Specialty Start Date End Date Natty Mckinney MD [address] [place] [address] PCP - General 10/11/10 documented as of this encounter
--- OUTSIDE RECORDS SUMMARY | 2024-06-20 02:06 | XMS_ITS | Encounter Summary ---
Author Organization [facility] [place] [address] Care Team Providers Care Manager Application Development Name Role Phone Natty Mckinney MD Primary Care Provider [phone] Encounter Details Date Type Department Care Team (Late st Contact Info) Description 03/16/2020 Telephone Radiation Oncology at [address] [phone] Arun Lyle Social History Tobacco [...] on filedocumented in this encounter Care Teams Manager Application Development Relationship Specialty Start Date End Date Natty Mckinney MD [address] [place] [address] PCP - General 10/11/10 documented as of this encounter
--- OUTSIDE RECORDS SUMMARY | 2024-06-20 02:06 | XMS_ITS | Encounter Summary ---
Author Organization [facility] [place] [address] Care Team Providers Care Assistant Restaurant General Manager Name Role Phone Natty Mckinney MD Primary Care Provider [phone] Encounter Details Date Type Department Care Team (Late st Contact Info) Description 04/08/2020 Notes Only Radiation Oncology at [address] [phone] Santiago Arroyo MD [address] [place] [address] DR RADIATION ONCOLOGY [place], [place] [phone] Social History Tobacco Use Types Packs/Day Years [...] Summary Santiago Arroyo MD, MS Radiation Oncology [facility] [phone] (paging copping machine operator) Pager #[phone] PATIENT IDENTIFICATION ?? Name Krishan Monte Date [...] Start Date End Date 03/10/20 03/19/20 ?? EXPERIENCE DESIGN DIRECTOR TREATMENT FIERRO: SPECIAL TECHNICAL CONSIDERATIONS: The patient [...] FOLLOWUP: Follow-up visit with Radiation Oncology in [facility] is scheduled for 04/29/20 for clinical symptom check; he has received instructions to call this office or seek the help of the local emergency room if any further problems should arise prior to followup. documented in this encounter Plan of Treatment Not on file documented as of this encounter Visit Diagnoses Not on filedocumented in this encounter Care Teams Assistant Restaurant General Manager Relationship Specialty Start Date End Date Natty Mckinney MD [address] [place] [address] PCP - General 10/11/10 documented as of this encounter
--- OUTSIDE RECORDS SUMMARY | 2024-06-20 02:06 | XMS_ITS | Encounter Summary ---
Author Organization [facility]ly [facility] [place] [address] Care Team Providers Care Veneer Taper Name Role Phone Natty Mckinney MD Primary Care Provider [phone] Encounter Details Date Type Department Care Team (Late st Contact Info) Description 05/11/2020 Telephone Radiation Oncology at [address] [address] Melvi Maddox RN Social History [...] 1:53 PM EDT Background: Received voicemail from [facility] in [facility] stating that they do not currently have [...] prostate documented in this encounter Care Teams Veneer Taper Relationship Specialty Start Date End Date Natty Mckinney MD [address] [place] [address] PCP - General 10/11/10 documented as of this encounter
--- OUTSIDE RECORDS SUMMARY | 2024-06-20 02:06 | XMS_ITS | Encounter Summary ---
Author Organization [facility] [place] [address] Care Team Providers Care Acreage Reporter Name Role Phone Natty Mckinney MD Primary Care Provider [phone] Reason for Visit * Reason Onset Date Comments Prior Authorization 03/24/2021 Encounter Details Date Type Department Care Team (Late st Contact Info) Description 03/24/2021 Telephone Hematology [place] [phone] Shantell Schmitt Prior Authorization Social History Tobacco [...] - 03/24/2021 1:45 PM EDT PA: CPT 57762 Submitted verbally to [facility] [phone] Case:#[id number] Approved Auth#: [id number] Valid: 03/24/21-05/08/21 documented in this encounter Plan of Treatment Not on file documented as of this encounter Visit Diagnoses Not on filedocumented in this encounter Care Teams Acreage Reporter Relationship Specialty Start Date End Date Natty Mckinney MD [address] [place] [address] PCP - General 10/11/10 documented as of this encounter
--- OUTSIDE RECORDS SUMMARY | 2024-06-20 02:06 | XMS_ITS | Encounter Summary ---
Author Organization [facility] [place] [address] Care Team Providers Care Missile Control Pilot Name Role Phone Natty Mckinney MD Primary Care Provider [phone] Reason for Visit * Reason Comments Prostate Cancer Encounter Details Date Type Department Care Team (Late st Contact Info) Description 03/24/2021 10:30 AM EDT TH Visit (TeleHealth) Radiation Oncology at [address] [phone] Shweta Hendrix MANAGER FRENCH [address] [place] [address] [place] [address] Malignant neoplasm of prostate Social History Tobacco [...] Start Date End Date 4/22/20 5/1/20 ?? JUDICIAL ADMINISTRATIVE ASSISTANT TREATMENT MANCILLA: ?? Patient Active Problem List [...] OTHER 10/08/2019 CT Guided Biopsy Other 10/08/2019 [facility] RAD CAT SCAN Medications 03/24/21 1129 Medication Sig Taking? mecobalamin, vitamin B12, 1,000 mcg Tablet, Chewable Inject into the vein. Yes diclofenac (VOLTAREN) 1 % Gel Apply topically. Yes naloxone 4 mg/actuation [place], Non-Aerosol by Nasal route. 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 Because he had persistent hip pain he had imaging done of his hip at [facility] where there were concerning findings and it [...] affect walking. He had recent imaging at [facility] which demonstrated some concerning findings . Recent knee replacement on the right Exercise/functional status: Limited due to fatigue but able to drive and manage ostomy care, ADL and IADL Psych Some anxiety related to recent XR findings KPS 70-80 PE : N/E Labs: 02/08/2021-- CA=9.1, GLU= 121, BUN=12, CREAT=1.0, EGFR=>60, k=5.0, IU=753, CO2=26.4, WBC=10.03, RBC= 4.21, HGB=13.4, HCT=41.7, BQIB=592 PSA History:?? 12/21/2020-- 1.6 08/31/20 1.1 04/19/20: [...] documented in this encounter Care Teams Missile Control Pilot Relationship Specialty Start Date End Date Natty Mckinney MD [address] [place] [address] PCP - General 10/11/10 documented as of this encounter
--- OUTSIDE RECORDS SUMMARY | 2024-06-20 02:06 | XMS_ITS | Encounter Summary ---
Author Organization [facility] Address [facility] [place] [address] Care Team Providers Care Rivet Tester Name Role Phone Natty Mckinney MD Primary Care Provider [phone] Reason for Referral * Consultation (Routine) - Closed Specialty Diagnoses / Procedures Referred By Claire guerrero Referred To Contact Orthopaedics Diagnoses Osteoarthritis of carpometacarpal (CMC) joint of thumb, unspecified laterality, unspecified osteoarthritis type Ulnar abutment syndrome of both wrists Ector Irizarry MD [address] [place] [address] Willie Rivas MD [facility] [place] [address] Referral ID Status Reason Start Date Expiration Date V isits Requested Visits Authorized [id number] Closed Consult, Test & Treat PCP Updated and/or Approved 02/08/2022 02/08/2023 6 6 Encounter Details Date Type Department Care Team (Latest Contact Info) Description 02/08/2022 Transcribe Orders eDH Incoming Referrals [phone] Ector Irizarry MD [address] [place], [place] [id number] Osteoarthritis of carpometacarpal (CMC) joint of thumb, [...] wrists documented in this encounter Care Teams Rivet Tester Relationship Specialty Start Date End Date Natty Mckinney MD [address] [place] [address] PCP - General 10/11/10 documented as of this encounter
--- OUTSIDE RECORDS SUMMARY | 2024-06-20 02:07 | XMS_ITS | Encounter Summary ---
Author Organization [facility] [place] [address] Care Team Providers Care Wastewater Engineer Name Role Phone Natty Mckinney MD Primary Care Provider [phone] Encounter Details Date Type Department Care Team (Late st Contact Info) Description 12/22/2019 [place] [address] Norman De Oliveira, [facility] [place] [address] Social History Tobacco Use Types Packs/Day Years [...] on filedocumented in this encounter Care Teams Wastewater Engineer Relationship Specialty Start Date End Date Natty Mckinney MD [address] [place] [address] PCP - General 10/11/10 documented as of this encounter
--- OUTSIDE RECORDS SUMMARY | 2024-06-20 02:07 | XMS_ITS | Encounter Summary ---
Author Organization [facility] Address [address] [place] [address] Care Team Providers Care Knowledge Engineer Name Role Phone Natty Mckinney MD Primary Care Provider [phone] Encounter Details Date Type Department Care Team (Late st Contact Info) Description 06/25/2023 Lab Requisition [facility] Pathology & Laboratory Medicine - [facility] [address] [place] [address] Outr Resulting Lab, Provider Social History Tobacco Use Types Packs/Day Years Used Date Smoking Tobacco: Every Day Cigarettes 1.5 48.6 Started: 1976 Smokeless Tobacco: Never Comments:Cut down [...] 20 - 40 mg/dL 06/26/2023 9:40 EDT [facility] Blood VENOUS BLOOD / Unknown 06/25/2023 11:30 EDT 06/25/2023 21:21 EDT Provider Outr Resulting Lab CHEMISTRY & BLOOD GAS ORDERABLES [facility] [address] [place] [address] documented in this encounter Visit Diagnoses Not on filedocumented in this encounter Care Teams Knowledge Engineer Relationship Specialty Start Date End Date Natty Mckinney MD [address] [place] [address] PCP - General 09/29/15 documented as of this encounter
--- OUTSIDE RECORDS SUMMARY | 2024-06-20 02:07 | XMS_ITS | Encounter Summary ---
Author Organization [facility] [place] [address] Care Team Providers Care Railroad Carman Name Role Phone Natty Mckinney MD Primary Care Provider [phone] Encounter Details Date Type Department Care Team (Late st Contact Info) Description 01/02/2020 Telephone Radiation Oncology at [address] [address] Arun Lyle Social History Tobacco [...] on filedocumented in this encounter Care Teams Railroad Carman Relationship Specialty Start Date End Date Natty Mckinney MD [address] [place] [address] PCP - General 10/11/10 documented as of this encounter
--- OUTSIDE RECORDS SUMMARY | 2024-06-20 02:07 | XMS_ITS | Referral Summary ---
Author Organization [facility] Address [address] [place] [address] Care Team Providers Care Technology Trainer Name Role Phone Natty Mckinney MD Primary Care Provider [phone] Encounters Date Type Department Care Team Description 04/21/2024 Lab Requisition [facility] Pathology & Laboratory [address] [address] Outr Resulting Lab, Provider 03/24/2024 Lab Requisition [facility] Pathology & Laboratory [address] [address] Outr Resulting Lab, Provider from Last 3 [...] naloxone (NARCAN) 4 mg/actuation nasal spray 1 [place] by nasal route as needed for Opioid [...] by misc (non-drug; combo route) route daily. [place] wafers part # [id number] Active Active Problems Problem Noted Date Diagnosed Date Vitamin B12 deficiency 01/05/2021 Malaise and fatigue 01/05/2021 Prostate cancer ([facility]) 01/05/2021 Pain of knee joint on movement [...] subsequent encounter 01/05/2021 Syncope 01/05/2021 Ileostomy status ([facility]) 01/05/2021 Chronic abdominal pain 01/05/2021 Crohn's disease ([facility]) 01/05/2021 Social History Tobacco Use Types Packs/Day Years Used Date Smoking Tobacco: Every Day Cigarettes 1.5 48.6 Started: 1976 Smokeless Tobacco: Never Tobacco Cessation:Counseling [...] 20 - 40 mg/dL 04/22/2024 10:27 EDT [facility] Blood VENOUS BLOOD / Unknown 04/21/2024 10:35 EDT 04/21/2024 16:59 EDT Provider Outr Resulting Lab CHEMISTRY & BLOOD GAS ORDERABLES [facility] [address] [place] [address] from Last 3 Months Care Teams Technology Trainer Relationship Specialty Start Date End Date Natty Mckinney MD [address] [place] [address] PCP - General 09/29/15
--- OUTSIDE RECORDS SUMMARY | 2024-06-20 02:07 | XMS_ITS | Encounter Summary ---
Author Organization [facility] [place] [address] Care Team Providers Care Technology Professional Name Role Phone Natty Mckinney MD Primary Care Provider [phone] Encounter Details Date Type Department Care Team (Latest Contact Info) Description 10/30/2019 Multidisciplinary Ca re [place] [address] Pee Pan MD [facility] [place] [address] Social History Tobacco Use Types Packs/Day Years [...] on filedocumented in this encounter Care Teams Technology Professional Relationship Specialty Start Date End Date Natty Mckinney MD [address] [place] [address] PCP - General 10/11/10 documented as of this encounter
--- OUTSIDE RECORDS SUMMARY | 2024-06-20 02:07 | XMS_ITS | Encounter Summary ---
Author Organization [facility] Address [address] [place] [address] Care Team Providers Care Corrosion Control Specialist Name Role Phone Natty Mckinney MD Primary Care Provider [phone] Encounter Details Date Type Department Care Team (Late st Contact Info) Description 02/25/2024 Lab Requisition [facility] Pathology & Laboratory Medicine - [facility] [address] [place] [address] Outr Resulting Lab, Provider Social History Tobacco [...] 20 - 40 mg/dL 02/26/2024 9:26 EDT [facility] Blood VENOUS BLOOD / Unknown 02/25/2024 12:40 EDT 02/25/2024 21:55 EDT Provider Outr Resulting Lab CHEMISTRY & BLOOD GAS ORDERABLES [facility] [address] [place], [place] [address] documented in this encounter Visit Diagnoses Not on filedocumented in this encounter Care Teams Corrosion Control Specialist Relationship Specialty Start Date End Date Natty Mckinney MD [address] [place] [address] PCP - General 09/29/15 documented as of this encounter
--- OUTSIDE RECORDS SUMMARY | 2024-06-20 02:07 | XMS_ITS | Encounter Summary ---
Author Organization [facility] [place] [address] Care Team Providers Care Husbandry Technician Name Role Phone Natty Mckinney MD Primary Care Provider [phone] Encounter Details Date Type Department Care Team (Latest Contact Info) Description 09/16/2019 Transcribe [place] [address] Natty Mckinney MD [address] [place], [place] [id number] Stomach ache; Epidemic vomiting syndrome; Ileostomy status [...] Lvl WB 177 70 - 180 nmol/L [facility] Comment: ADDITIONAL INFORMATION This test was developed and its performance characteristics determined by [facility] in a manner consistent with CLIA requirements. This test has not been cleared or approved by the U.S. Food and Drug Administration. Test Performed by: [facility] - [address] [address] Dip Painter: Valente Romero M.D. Ph.D.; CLIA# [id number] Blood specimen (specimen) 10/08/2019 7:14 AM EST 10/08/2019 8:35 AM EST Narrative Resulting Agency Comment Spec In Lab Natty Mckinney MD CHEMISTRY ORDERABLES Performing Organization Address City/[facility] Co de Phone Number [facility] [place] [address] * Sedimentation rate (10/08/2019 7:14 AM EST) Sed Rate 5 0 - 15 mm/hr [facility] Blood specimen (specimen) 10/08/2019 7:14 AM EST 10/08/2019 7:27 AM EST Narrative Resulting Agency Comment Spec In Lab Natty Mckinney MD HEMATOLOGY ORDERABLE S Performing Organization Address [facility] Phone Number [facility] [place] [address] * CK (10/08/2019 7:14 AM EST) CK, Total 59 0 - 200 unit/L [facility] Blood specimen (specimen) 10/08/2019 7:14 AM EST 10/08/2019 7:27 AM EST Narrative Resulting Agency Comment Spec In Lab Natty Mckinney MD CHEMISTRY ORDERABLES Performing Organization Address [facility] Co de Phone Number [facility] [place] [address] * Magnesium (10/08/2019 7:14 AM EST) Magnesium 0.87 0.69 - 1.07 mmol/L [facility] Blood specimen (specimen) 10/08/2019 7:14 AM EST 10/08/2019 7:27 AM EST Narrative Resulting Agency Comment Spec In Lab Natty Mckinney MD CHEMISTRY ORDERABLES Performing Organization Address City/[facility] Co de Phone Number [facility] [place] [address] * (ABNORMAL) Vitamin A (10/08/2019 7:14 AM EST) Vitamin A 87.6(H) 32.5 - 78.0 mcg/dL [facility] Comment: ADDITIONAL INFORMATION This test was developed and its performance characteristics determined by [facility] in a manner consistent with CLIA requirements. This test has not been cleared or approved by the U.S. Food and Drug Administration. Test Performed by: [facility] [place] [address] Dip Painter: Valente Romero M.D. Ph.D.; CLIA# [id number] Blood specimen (specimen) 10/08/2019 7:14 AM EST 10/08/2019 10:36 AM EST Narrative Resulting Agency Comment Spec In Lab Natty Mckinney MD CHEMISTRY ORDERABLES [facility] [place] [address] documented in this encounter Visit Diagnoses Diagnosis Stomach ache Dyspepsia and other specified disorders of function of stomach Epidemic vomiting syndrome Ileostomy status documented in this encounter Care Teams Husbandry Technician Relationship Specialty Start Date End Date Natty Mckinney MD [address] [place] [address] PCP - General 10/11/10 documented as of this encounter
--- OUTSIDE RECORDS SUMMARY | 2024-06-20 02:07 | XMS_ITS | Encounter Summary ---
Author Organization [facility] Address [address] [place] [address] Care Team Providers Care Maintenance Pipefitter Name Role Phone Natty Mckinney MD Primary Care Provider [phone] Encounter Details Date Type Department Care Team (Late st Contact Info) Description 12/31/[address] [facility] Pathology & Laboratory Medicine - [facility] [address] [place] [address] Outr Resulting Lab, Provider Social History Tobacco [...] 10:13 EST [facility] Blood VENOUS BLOOD / Unknown 12/31/2023 13:00 EST 12/31/2023 21:20 EST Provider Outr Resulting Lab CHEMISTRY & BLOOD GAS ORDERABLES [facility] [address] [place] [address] documented in this encounter Visit Diagnoses Not on filedocumented in this encounter Care Teams Maintenance Pipefitter Relationship Specialty Start Date End Date Natty Mckinney MD [address] [place] [address] PCP - General 09/29/15 documented as of this encounter
--- OUTSIDE RECORDS SUMMARY | 2024-06-20 02:07 | XMS_ITS | Encounter Summary ---
Author Organization [facility] Address [facility] [place] [address] Care Team Providers Care Product Safety Test Engineer Name Role Phone Natty Mckinney MD Primary Care Provider [phone] Reason for Referral * Consultation (Routine) - Closed Specialty Diagnoses / Procedures Referred By Contangela t Referred To Contact Radiation Oncology Diagnoses Malignant neoplasm of prostate Daniele Seals MD [facility] [place] [address] [facility] Rad Onc Treatment [address] [place] [id number] Referral ID Status Reason Start Date Expiration Date V isits Requested Visits Authorized [id number] Closed Consult, Test & Treat 12/03/2019 12/02/2020 1 1 Encounter Details Date Type Department Care Team (Late st Contact Info) Description 12/03/2019 Orders [place] [address] Daniele Seals MD [facility] [place] [address] Malignant neoplasm of prostate Social History Tobacco [...] prostate documented in this encounter Care Teams Product Safety Test Engineer Relationship Specialty Start Date End Date Natty Mckinney MD [address] [place] [address] PCP - General 10/11/10 documented as of this encounter
--- OUTSIDE RECORDS SUMMARY | 2024-06-20 02:07 | XMS_ITS | Encounter Summary ---
Author Organization [facility] [place] [address] Care Team Providers Care Media Librarian Name Role Phone Natty Mckinney MD Primary Care Provider [phone] Encounter Details Date Type Department Care Team (Late st Contact Info) Description 12/03/2019 Telephone Radiation Oncology at [address] [address] Melvi Wise Social History Tobacco [...] on filedocumented in this encounter Care Teams Media Librarian Relationship Specialty Start Date End Date Natty Mckinney MD [address] [place] [address] PCP - General 10/11/10 documented as of this encounter
--- OUTSIDE RECORDS SUMMARY | 2024-06-20 02:07 | XMS_ITS | Encounter Summary ---
Author Organization [place] [address] Care Team Providers Care Glass Selector Name Role Phone Natty Mckinney MD Primary Care Provider [phone] Reason for Visit * Reason Onset Date Comments Pre Procedure Call 08/28/2019 Encounter Details Date Type Department Care Team (Late st Contact Info) Description 08/28/2019 Telephone Hematology [place] [phone] Nicole Eagle RN Pre Procedure Call Social History Tobacco [...] labs faxed to Urology office (fax # [phone]). Patient Hx: Leaky heart valve, artifical heart [...] need for biopsy. Registration is at Hem/Onc gis software developer on 3rd floor. Patient understands and is [...] (Ultrasensitiv e) 6.38(H) 0.00 - 4.00 ng/mL [facility] PSA Free 0.6 ng/mL [facility] PSA % Free 10 % [facility] Comment: Probability of finding NURSE CHEMICAL DEPENDENCY on needle biopsy by age in years: [...] MD CHEMISTRY ORDERABL ES Performing Organization Address City/State/[facility] Co de Phone Number [facility] [place] [address] documented in this encounter Visit Diagnoses Diagnosis Elevated PSA Elevated prostate specific antigen (PSA) documented in this encounter Care Teams Glass Selector Relationship Specialty Start Date End Date Natty Mckinney MD [address] [place] [address] PCP - General 10/11/10 documented as of this encounter
--- OUTSIDE RECORDS SUMMARY | 2024-06-20 02:07 | XMS_ITS | Encounter Summary ---
Author Organization [facility] Address [facility] [place] [address] Care Team Providers Care Order Selector Name Role Phone Natty Mckinney MD Primary Care Provider [phone] Reason for Visit * Diagnostic Test (Routine) - Closed Specialty Diagnoses / Procedures Referred By Claire guerrero Referred To Contact Radiology Diagnoses Malignant neoplasm of prostate Procedures CT Guided Fiducial Marker CT Guided Biopsy Other Santiago Arroyo MD [address] [place] [address] [place] [address] [facility] [place] [address] Referral ID Status Reason Start Date Expiration Date V isits Requested Visits Authorized [id number] Closed Specialty Service Requested 12/22/2019 06/21/2021 1 1 Encounter Details Date Type Department Care Team (Latest Contact Info) Description 01/14/2020 9:34 AM EST - 01/14/2020 11:59 PM [facility] [place] [address] Santiago Arroyo MD [address] [place] [address] [place] [address] Malignant neoplasm of prostate Discharge [...] Bran RN - 01/14/2020 12:43 PM EST [facility] Vascular and Interventional Radiology Discharge Instructions [...] is during regular office hours, please call [phone]. If it is after regular office hours, or on weekends or holidays, please call [phone] and ask to speak to the Cloth Mercerizing Supervisor studio operation engineer for Interventional Radiology. You have received medication [...] (home) Telephone Information: PCP Natty Mckinney MD [phone] Date/Time of call: January 15, 2020/10:24 AM [...] of : 1965 AGE: 54 y.o. Address: [address] [address] (home) Mobile: Telephone Information: Referring Provider: Santiago Arroyo REASON FOR VISIT: Order Questions Answers Where will study be performed? [facility] Radiology [120] Laterality Bilateral Is the patient [...] Questions Answers Where will study be performed? [facility] Radiology [120] Laterality Bilateral Is the patient [...] OTHER 10/08/2019 CT Guided Biopsy Other 10/08/2019 [facility] RAD CAT SCAN Medications: Current Outpatient Medications [...] file Gets together: Not on file Attends hoahaoism service: Not on file Active member of [...] of position, a PointCoil was deployed. ?? [place] removed, and hemostasis obtained with manual compression. [...] mg documented in this encounter Care Teams Order Selector Relationship Specialty Start Date End Date Natty Mckinney MD [address] [place] [address] PCP - General 10/11/10 documented as of this encounter
--- OUTSIDE RECORDS SUMMARY | 2024-06-20 02:07 | XMS_ITS | Encounter Summary ---
Author Organization [facility] Address [address] [place] [address] Care Team Providers Care Commercial Administrator Name Role Phone Natty Mckinney MD Primary Care Provider [phone] Encounter Details Date Type Department Care Team (Late st Contact Info) Description 07/30/2023 Lab Requisition [facility] Pathology & Laboratory Medicine - [facility] [address] [place] [address] Outr Resulting Lab, Provider Social History Tobacco [...] 20 - 40 mg/dL 07/31/2023 9:24 EDT [facility] Blood VENOUS BLOOD / Unknown 07/30/2023 14:20 EDT 07/30/2023 21:29 EDT Provider Outr Resulting Lab CHEMISTRY & BLOOD GAS ORDERABLES [facility] [address] [place] [address] documented in this encounter Visit Diagnoses Not on filedocumented in this encounter Care Teams Commercial Administrator Relationship Specialty Start Date End Date Natty Mckinney MD [address] [place] [address] PCP - General 09/29/15 documented as of this encounter
--- OUTSIDE RECORDS SUMMARY | 2024-06-20 02:07 | XMS_ITS | Encounter Summary ---
Author Organization Replaced By [facility] Address [facility] [place] [address] Care Team Providers Care Rough Planer Tender Name Role Phone Natty Mckinney MD Primary Care Provider [phone] Encounter Details Date Type Department Care Team (Late st Contact Info) Description 10/14/2019 [place] [address] Daniele Seals MD [facility] [place] [address] Social History Tobacco Use Types Packs/Day Years Used Date Smoking Tobacco: Never Assessed Sex and Gender Information Value Date Recorded Sex Assigned at Not on file Gender Identity Not on file Sexual Orientation Not on file documented as of this encounter Progress Notes * Daniele Seals MD - 10/14/2019 5:28 PM EST I called to review CT guided biopsy results that 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 I discussed my concerns of [...] on filedocumented in this encounter Care Teams Rough Planer Tender Relationship Specialty Start Date End Date Natty Mckinney MD [address] [place], [place] [address] PCP - General 10/11/10 documented as of this encounter
--- OUTSIDE RECORDS SUMMARY | 2024-06-20 02:07 | XMS_ITS | Encounter Summary ---
Author Organization [facility] [place] [address] Care Team Providers Care Armoured Corps Officer Name Role Phone Natty Mckinney MD Primary Care Provider [phone] Encounter Details Date Type Department Care Team (Late st Contact Info) Description 06/10/2009 [place] [id number] Sidra Omalley MD GASTROENTEROLOGY Social History Tobacco [...] 10:34 AM EDT) Surgical Pathology Report [id number] ? Location: 4T The signing pathologist has [...] on filedocumented in this encounter Care Teams Armoured Corps Officer Relationship Specialty Start Date End Date Natty Mckinney MD [address] [place] [address] PCP - General 10/11/10 documented as of this encounter
--- OUTSIDE RECORDS SUMMARY | 2024-06-20 02:07 | XMS_ITS | Encounter Summary ---
Author Organization [facility] Address [address] [place] [address] Care Team Providers Care Personnel Records Clerk Name Role Phone Natty Mckinney MD Primary Care Provider [phone] Encounter Details Date Type Department Care Team (Late st Contact Info) Description 01/28/[address] [facility] Pathology & Laboratory Medicine - [facility] [address] [place] [address] Outr Resulting Lab, Provider Social History Tobacco [...] 20 - 40 mg/dL 01/29/2024 17:02 EDT [facility] Blood VENOUS BLOOD / Unknown 01/28/2024 12:55 EDT 01/28/2024 21:38 EDT Provider Outr Resulting Lab CHEMISTRY & BLOOD GAS ORDERABLES [facility] [address] [place], [place] [address] documented in this encounter Visit Diagnoses Not on filedocumented in this encounter Care Teams Personnel Records Clerk Relationship Specialty Start Date End Date Natty Mckinney MD [address] [place] [address] PCP - General 09/29/15 documented as of this encounter
--- OUTSIDE RECORDS SUMMARY | 2024-06-20 02:07 | XMS_ITS | Encounter Summary ---
Author Organization [facility] Address [facility] [place] [address] Care Team Providers Care Horticulture Teacher Name Role Phone Natty Mckinney MD Primary Care Provider [phone] Encounter Details Date Type Department Care Team (Late st Contact Info) Description 10/01/2019 [place] [address] Daniele Seals MD [facility] [place] [address] Social History Tobacco Use Types Packs/Day Years [...] on filedocumented in this encounter Care Teams Horticulture Teacher Relationship Specialty Start Date End Date Natty Mckinney MD [address] [place] [address] PCP - General 10/11/10 documented as of this encounter
--- OUTSIDE RECORDS SUMMARY | 2024-06-20 02:07 | XMS_ITS | Encounter Summary ---
Author Organization [facility] Address [address] [place] [address] Care Team Providers Care Principal Ios Developer Name Role Phone Natty Mckinney MD Primary Care Provider [phone] Encounter Details Date Type Department Care Team (Late st Contact Info) Description 04/20/2023 Lab Requisition [facility] Pathology & Laboratory Medicine - [facility] [address] [place] [address] Outr Resulting Lab, Provider Social History Tobacco [...] 22 - 322 ng/mL 04/20/2023 19:34 EDT [facility] Blood VENOUS BLOOD / Unknown 04/17/2023 10:10 EDT 04/20/2023 17:31 EDT Provider Outr Resulting Lab CHEMISTRY & BLOOD GAS ORDERABLES Performing Organization Address [facility] Co de Phone Number [facility] [address] [place] [address] * FOLATE (04/17/2023 10:10 EDT) Folate 14.1 See Note ng/mL 04/20/2023 19:36 EDT [facility] Comment: Reference Ranges for Folate: Deficient: ?< 3.4 ng/mL Indeterminate: ??3.4 - 5.4 ng/mL Normal: ? > 5.4 ng/mL The results of this assay can be falsely elevated due to the consumption of Biotin. Blood VENOUS BLOOD / Unknown 04/17/2023 10:10 EDT 04/20/2023 17:31 EDT Provider Outr Resulting Lab CHEMISTRY & BLOOD GAS ORDERABLES Performing Organization Address [facility]/ZIP Co de Phone Number [facility] [address] [place] [address] * VITAMIN B12 (04/17/2023 10:10 EDT) Vitamin B12 881 211 - 911 pg/mL 04/20/2023 19:36 EDT [facility] Blood VENOUS BLOOD / Unknown 04/17/2023 10:10 EDT 04/20/2023 17:31 EDT Provider Outr Resulting Lab CHEMISTRY & BLOOD GAS ORDERABLES [facility] [address] [place] [address] documented in this encounter Visit Diagnoses Not on filedocumented in this encounter Care Teams Principal Ios Developer Relationship Specialty Start Date End Date Natty Mckinney MD [address] [place] [address] PCP - General 09/29/15 documented as of this encounter
--- OUTSIDE RECORDS SUMMARY | 2024-06-20 02:07 | XMS_ITS | Encounter Summary ---
Author Organization [facility] Address [address] [place] [address] Care Team Providers Care Driver Courier Name Role Phone Natty Mckinney MD Primary Care Provider [phone] Encounter Details Date Type Department Care Team (Late st Contact Info) Description 04/17/2023 Lab Requisition [facility] Pathology & Laboratory Medicine - [facility] [address] [place] [address] Outr Resulting Lab, Provider Social History Tobacco [...] 20 - 40 mg/dL 04/18/2023 10:20 EDT [facility] Blood VENOUS BLOOD / Unknown 04/17/2023 10:01 EDT 04/17/2023 21:57 EDT Provider Outr Resulting Lab CHEMISTRY & BLOOD GAS ORDERABLES [facility] [address] [place] [address] documented in this encounter Visit Diagnoses Not on filedocumented in this encounter Care Teams Driver Courier Relationship Specialty Start Date End Date Natty Mckinney MD [address] [place] [address] PCP - General 09/29/15 documented as of this encounter
--- OUTSIDE RECORDS SUMMARY | 2024-06-20 02:07 | XMS_ITS | Encounter Summary ---
Author Organization [facility] Address [address] [place] [address] Care Team Providers Care Gas Fitter Helper Name Role Phone Natty Mckinney MD Primary Care Provider [phone] Encounter Details Date Type Department Care Team (Late st Contact Info) Description 05/29/2023 Lab Requisition [facility] Pathology & Laboratory Medicine - [facility] [address] [place] [address] Outr Resulting Lab, Provider Social History Tobacco [...] 20 - 40 mg/dL 05/30/2023 9:28 EDT [facility] Blood VENOUS BLOOD / Unknown 05/28/2023 15:20 EDT 05/29/2023 15:29 EDT Provider Outr Resulting Lab CHEMISTRY & BLOOD GAS ORDERABLES [facility] [address] [place] [address] documented in this encounter Visit Diagnoses Not on filedocumented in this encounter Care Teams Gas Fitter Helper Relationship Specialty Start Date End Date Natty Mckinney MD [address] [place] [address] PCP - General 09/29/15 documented as of this encounter
--- OUTSIDE RECORDS SUMMARY | 2024-06-20 02:07 | XMS_ITS | Encounter Summary ---
Author Organization [facility] [place] [address] Care Team Providers Care Lockstitch Binder Name Role Phone Natty Mckinney MD Primary Care Provider [phone] Reason for Referral * Diagnostic Test (Routine) - Closed Specialty Diagnoses / Procedures Referred By Claire guerrero Referred To Contact Radiology Diagnoses Elevated PSA Procedures CT Guided Biopsy Other Daniele Seals MD [facility] [place] [address] [facility] [place] [address] Referral ID Status Reason Start Date Expiration Date V isits Requested Visits Authorized [id number] Closed Specialty Service Requested 09/26/2019 09/25/2020 1 1 Encounter Details Date Type Department Care Team (Late st Contact Info) Description 09/26/2019 [place] [address] Daniele Seals MD [facility] [place] [address] Elevated PSA Social History Tobacco Use Types [...] guided TP biopsy or refer him to [place] where there are a few folks doing [...] Prostate was localized with CT, patient prone. ??[place], mid and basal sites located on right and left. After sterile preparation of the overlying skin, 7 cc 1% lidocaine SQ was administered for anesthesia, and a 17 ga needle guide was advanced under CT guidance into the mass. The 18 ga biopsy gun was advanced coaxially and specimen obtained x 1-2 at each site and submitted individually labelled ??to pathology. ??[place] were removed and hemostasis obtained by manual [...] (PSA) documented in this encounter Care Teams Lockstitch Binder Relationship Specialty Start Date End Date Natty Mckinney MD [address] [place] [address] PCP - General 10/11/10 documented as of this encounter
--- OUTSIDE RECORDS SUMMARY | 2024-06-20 02:07 | XMS_ITS | Encounter Summary ---
Author Organization [facility] Address [facility] [place] [address] Care Team Providers Care Clinical Statistical Programmer Name Role Phone Natty Mckinney MD Primary Care Provider [phone] Reason for Referral * Consultation (Routine) - Closed Specialty Diagnoses / Procedures Referred By Claire guerrero Referred To Contact Radiation Oncology Diagnoses Malignant neoplasm of prostate Procedures Simulation for Radiation Therapy Planning Santiago Arroyo MD [address] [place] [address] [place] [address] [facility] Rad Onc Office [address] [place] [id number] Referral ID Status Reason Start Date Expiration Date V isits Requested Visits Authorized [id number] Closed Consult, Test & Treat 12/22/2019 12/21/2020 1 1 Reason for Visit * Consultation (Routine) - Closed Specialty Diagnoses / Procedures Referred By Claire guerrero Referred To Contact Radiation Oncology Diagnoses Malignant neoplasm of prostate Daniele Seals MD [facility] [place] [address] [facility] Rad Onc Treatment [address] [place] [phone] Referral ID Status Reason Start Date Expiration Date V isits Requested Visits Authorized [id number] Closed Consult, Test & Treat 12/03/2019 12/02/2020 1 1 Encounter Details Date Type Department Care Team (Late st Contact Info) Description 12/22/2019 9:00 AM EST Office Visit Radiation Oncology at [address] [place] [address] Santiago Arroyo MD [address] [place] [address] DR RADIATION ONCOLOGY [place], [place] [id number] Malignant neoplasm of prostate Social History Tobacco [...] your prostate cancer looks under the microscope). Girdler scores for cancer range from 6-10, and [...] refer you to the Surveillance Clinic at [facility], which is run by our prostate cancer [...] is for you to visit radiology at [facility] again, where they could place small gold [...] a prostate MRI which we do at [facility], that allows us to better see your [...] within 4-6 weeks of completion radiation. 6. Commercial Cleaner Complications: These are more worrisome and are [...] for urination). There may be a slow, rat exterminator decrease in your sexual function as well, [...] do not hesitate to call me at [phone] with any other questions or concerns you have. IfI am not here, one of our radiation oncology nurses can assist you or help you get in touch with me. A Radiation Oncology doctor is also corrosion control engineer after our normal hours and on weekends for urgent questions or concerns related to radiation treatments that can not wait until normal business hours. To reach the on-call doctor after-hours, just call and have the deflash and wash operator page the Radiation Oncologist corrosion control engineer. And, as always, if you experience any [...] injury 7. Uncontrollable bleeding Santiago Barbosa MD Hazardous Substances Scientistwood fuel pelletizer Radiation Oncology [facility] documented in this encounter Progress Notes * Santiago Arroyo MD - 12/22/2019 9:00 AM EST Images from the original note were not included. Radiation Oncology Prostate Cancer Consult Note Santiago Arroyo MD, MS [facility] [phone] PATIENT IDENTIFICATION: PATIENT NAME: Krishan Monte DATE OF : 1965 REFERRING PROVIDER: Daniele Seals MD [facility] [place] [address] REASON FOR CONSULTATION : Cancer Staging Malignant [...] Release(E.C.) daily. 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 In the chcf, I explained there is an approximately 2% [...] candidate for any currently open trials at [facility] given his surgically absence rectum. On balance, [...] anticipate 5 fractions to be delivered in [facility]. 4. Fiducial maker placement, CT simulation to be scheduled TIME ATTESTATION: At least 45 minutes of this 60 minute visit was spent with the patient [id number] reviewing his interval medical history and answering [...] On disability since 2002 . 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 See [facility] social assessment information entered. Support Systems: Lives alone. Accompanied by friend, Nancy Barriers to treatment: none Referrals/Interventions: workers compensation defense attorney on day per routine. RADIATION SPECIFIC TEACHING [...] documented in this encounter Care Teams Clinical Statistical Programmer Relationship Specialty Start Date End Date Natty Mckinney MD [address] [place] [address] PCP - General 10/11/10 documented as of this encounter
--- OUTSIDE RECORDS SUMMARY | 2024-06-20 02:07 | XMS_ITS | Encounter Summary ---
Author Organization [facility] Address [address] [place] [address] Care Team Providers Care Integrated Circuit Fabricator Name Role Phone Natty Mckinney MD Primary Care Provider [phone] Encounter Details Date Type Department Care Team (Late st Contact Info) Description 04/12/2023 Lab Requisition [facility] Pathology & Laboratory Medicine - [facility] [address] [place] [address] Outr Resulting Lab, Provider Social History Tobacco [...] 20 - 40 mg/dL 04/13/2023 9:57 EDT [facility] Blood VENOUS BLOOD / Unknown 04/12/2023 10:47 EDT 04/12/2023 21:05 EDT Provider Outr Resulting Lab CHEMISTRY & BLOOD GAS ORDERABLES [facility] [address] [place] [address] documented in this encounter Visit Diagnoses Not on filedocumented in this encounter Care Teams Integrated Circuit Fabricator Relationship Specialty Start Date End Date Natty Mckinney MD [address] [place] [address] PCP - General 09/29/15 documented as of this encounter
--- OUTSIDE RECORDS SUMMARY | 2024-06-20 02:07 | XMS_ITS | Encounter Summary ---
Author Organization [facility] [place] [address] Care Team Providers Care Pole Shaver Name Role Phone Natty Mckinney MD Primary Care Provider [phone] Reason for Referral * Diagnostic Test (Routine) - Closed Specialty Diagnoses / Procedures Referred By Contangela t Referred To Contact Radiology Diagnoses Elevated PSA Procedures MRI Pelvis wwo (Prostate) Daniele Seals MD [facility] [place] [address] [place] [address] Referral ID Status Reason Start Date Expiration Date V isits Requested Visits Authorized [id number] Closed Specialty Service Requested 09/08/2019 09/07/2020 1 1 Encounter Details Date Type Department Care Team (Late st Contact Info) Description 09/08/2019 8:00 AM EDT Office Visit Hematology [place] [address] Daniele Seals MD [facility] [place] [address] Elevated PSA Social History Tobacco Use Types [...] Siri Gunn - 09/08/2019 8:00 AM EDT [facility] SECTION OF UROLOGY Urologic Outpatient Consult [...] 2017), SOB Cardiovascular: Denies chest pain, arrhythmia, ID GI:Denies GI bleed, GERD, constipation or diarrhea. [...] admission.) Siri Gunn MD Section of Urology [facility] Office: [phone] I have seen the patient and reviewed [...] PSA level: 6.5 Date of sextant biopsy:N/A Callaway score: N/A TECHNIQUE: Multiparametric MRI of the [...] (PSA) documented in this encounter Care Teams Pole Shaver Relationship Specialty Start Date End Date Natty Mckinney MD [address] [place] [address] PCP - General 10/11/10 documented as of this encounter
--- OUTSIDE RECORDS SUMMARY | 2024-06-20 02:07 | XMS_ITS | Encounter Summary ---
Author Organization [facility] Address [address] [place] [address] Care Team Providers Care Laborer Cheesemaking Name Role Phone Natty Mckinney MD Primary Care Provider [phone] Encounter Details Date Type Department Care Team (Late st Contact Info) Description 08/20/2023 Lab Requisition [facility] Pathology & Laboratory Medicine - [facility] [address] [place] [address] Outr Resulting Lab, Provider Social History Tobacco [...] PSA 1.5 <=3.5 ng/mL 08/21/2023 11:41 EDT [facility] Blood VENOUS BLOOD / Unknown 08/20/2023 13:00 EDT 08/20/2023 21:34 EDT Narrative [facility] - 08/21/2023 11:41 EDT NOTE: Serum PSA concentration should not be interpreted as absolute evidence for the presence or absence of malignant disease. Assayed on [employer] BiolineRxaur XPT using chemiluminescent technology.??Values obtained by using different assay methods cannot be used interchangeably. Provider Outr Resulting Lab CHEMISTRY & BLOOD GAS ORDERABLES [facility] [address] [place] [address] documented in this encounter Visit Diagnoses Not on filedocumented in this encounter Care Teams Laborer Cheesemaking Relationship Specialty Start Date End Date Natty Mckinney MD [address] [place] [address] PCP - General 09/29/15 documented as of this encounter
--- OUTSIDE RECORDS SUMMARY | 2024-06-20 02:07 | XMS_ITS | Encounter Summary ---
Author Organization [facility] Address [address] [place] [address] Care Team Providers Care Card Lacer Name Role Phone Natty Mckinney MD Primary Care Provider [phone] Encounter Details Date Type Department Care Team (Late st Contact Info) Description 12/03/2023 Lab Requisition [facility] Pathology & Laboratory Medicine - [facility] [address] [place] [address] Outr Resulting Lab, Provider Social History Tobacco [...] 20 - 40 mg/dL 12/04/2023 9:51 EST [facility] Blood VENOUS BLOOD / Unknown 12/03/2023 13:00 EST 12/03/2023 21:40 EST Provider Outr Resulting Lab CHEMISTRY & BLOOD GAS ORDERABLES [facility] [address] [place] [address] documented in this encounter Visit Diagnoses Not on filedocumented in this encounter Care Teams Card Lacer Relationship Specialty Start Date End Date Natty Mckinney MD [address] [place] [address] PCP - General 09/29/15 documented as of this encounter
--- OUTSIDE RECORDS SUMMARY | 2024-06-20 02:07 | XMS_ITS | Encounter Summary ---
Author Organization [facility] Address [address] [place] [address] Care Team Providers Care Manufacturing Engineering Technologist Name Role Phone Natty Mckinney MD Primary Care Provider [phone] Encounter Details Date Type Department Care Team (Late st Contact Info) Description 09/18/2022 Lab Requisition [facility] Pathology & Laboratory Medicine - [facility] [address] [place] [address] Outr Resulting Lab, Provider Social History Tobacco [...] 2.8 - 5.3 pg/mL 09/19/2022 18:[address] [facility] Blood VENOUS BLOOD / Unknown 09/18/2022 11:00 EDT 09/19/2022 17:25 EDT Provider Outr Resulting Lab CHEMISTRY & BLOOD GAS ORDERABLES Performing Organization Address [facility] Co de Phone Number [facility] [address] [place] [address] * PSA TOTAL, DIAGNOSTIC (09/18/2022 11:00 EDT) PSA 1.1 <=3.5 ng/mL 09/19/2022 19:[address] [facility] Blood VENOUS BLOOD / Unknown 09/18/2022 11:00 EDT 09/19/2022 17:[address] [facility] - 09/19/2022 19:58 EDT NOTE: Serum PSA concentration should not be interpreted as absolute evidence for the presence or absence of malignant disease. Assayed on [employer] Centaur XPT using chemiluminescent technology.??Values obtained by using different assay methods cannot be used interchangeably. Provider Outr Resulting Lab CHEMISTRY & BLOOD GAS ORDERABLES Performing Organization Address City/[facility]/ZIP Co de Phone Number [facility] [address] [place] [address] documented in this encounter Visit Diagnoses Not on filedocumented in this encounter Care Teams Manufacturing Engineering Technologist Relationship Specialty Start Date End Date Natty Mckinney MD [address] [place] [address] PCP - General 09/29/15 documented as of this encounter
--- OUTSIDE RECORDS SUMMARY | 2024-06-20 02:07 | XMS_ITS | Encounter Summary ---
Author Organization [facility] [place] [address] Care Team Providers Care Laborer Shaft Sinking Name Role Phone Natty Mckinney MD Primary Care Provider [phone] Encounter Details Date Type Department Care Team (Late st Contact Info) Description 01/06/2020 Telephone Radiation Oncology at [address] [address] Arun Lyle Social History Tobacco [...] filedocumented in this encounter Care Teams Laborer Shaft Sinking Relationship Specialty Start Date End Date Natty Mckinney MD [address] [place] [address] PCP - General 10/11/10 documented as of this encounter
--- OUTSIDE RECORDS SUMMARY | 2024-06-20 02:07 | XMS_ITS | Encounter Summary ---
Author Organization [facility] Address [address] [place] [address] Care Team Providers Care Leather Scraper Name Role Phone Natty Mckinney MD Primary Care Provider Encounter Details Date Type Department Care Team (Late st Contact Info) Description 06/05/2023 Lab Requisition [facility] Pathology & Laboratory Medicine - [facility] [address] [place] [address] Outr Resulting Lab, Provider Social History Tobacco [...] 10:53 EDT [facility] Blood VENOUS BLOOD / Unknown 06/04/2023 11:25 EDT 06/05/2023 17:41 EDT Provider Outr Resulting Lab CHEMISTRY & BLOOD GAS ORDERABLES [facility] [address] [place] [address] documented in this encounter Visit Diagnoses Not on filedocumented in this encounter Care Teams Leather Scraper Relationship Specialty Start Date End Date Natty Mckinney MD [address] [place] [address] PCP - General 09/29/15 documented as of this encounter
--- OUTSIDE RECORDS SUMMARY | 2024-06-20 02:07 | XMS_ITS | Encounter Summary ---
Author Organization [facility] Address [address] [place] [address] Care Team Providers Care Folder Tier Name Role Phone Natty Mckinney MD Primary Care Provider [phone] Encounter Details Date Type Department Care Team (Late st Contact Info) Description 09/24/2023 Lab Requisition [facility] Pathology & Laboratory Medicine - [facility] [address] [place] [address] Outr Resulting Lab, Provider Social History Tobacco [...] 20 - 40 mg/dL 09/25/2023 10:50 EST [facility] Blood VENOUS BLOOD / Unknown 09/24/2023 13:25 EST 09/24/2023 22:01 EST Provider Outr Resulting Lab CHEMISTRY & BLOOD GAS ORDERABLES [facility] [address] [place] [address] documented in this encounter Visit Diagnoses Not on filedocumented in this encounter Care Teams Folder Tier Relationship Specialty Start Date End Date Natty Mckinney MD [address] [place] [address] PCP - General 09/29/15 documented as of this encounter
--- OUTSIDE RECORDS SUMMARY | 2024-06-20 02:07 | XMS_ITS | Encounter Summary ---
Author Organization [facility] [place] [address] Care Team Providers Care Ui Architect Name Role Phone Natty Mckinney MD Primary Care Provider [phone] Encounter Details Date Type Department Care Team (Latest Contact Info) Description 09/08/2019 7:00 AM EDT - 09/08/2019 11:59 PM EDT Hospital Encounter Hematology [place] [address] Elevated PSA Discharge Disposition: Home Social History [...] (Ultrasensitiv e) 6.38(H) 0.00 - 4.00 ng/mL [facility] PSA Free 0.6 ng/mL [facility] PSA % Free 10 % [facility] Comment: Probability of finding VALET PARKER on needle biopsy by age in years: [...] Lab Daniele Seals MD CHEMISTRY ORDERABL ES [facility] [place] [address] documented in this encounter Visit Diagnoses Diagnosis Elevated PSA Elevated prostate specific antigen (PSA) documented in this encounter Care Teams Ui Architect Relationship Specialty Start Date End Date Natty Mckinney MD [address] [place] [address] PCP - General 10/11/10 documented as of this encounter
--- OUTSIDE RECORDS SUMMARY | 2024-06-20 02:07 | XMS_ITS | Encounter Summary ---
Author Organization [facility] [place] [address] Care Team Providers Care Radio Communication Coordinator Name Role Phone Natty Mckinney MD Primary Care Provider [phone] Encounter Details Date Type Department Care Team (Late st Contact Info) Description 01/02/2020 Orders Only Radiation Oncology at [address] [id number] Santiago Arroyo MD [address] [place] [address] DR RADIATION ONCOLOGY [place], [place] [id number] Malignant neoplasm of prostate Social History Tobacco [...] prostate documented in this encounter Care Teams Radio Communication Coordinator Relationship Specialty Start Date End Date Natty Mckinney MD [address] [place], [place] [address] PCP - General 10/11/10 documented as of this encounter
--- OUTSIDE RECORDS SUMMARY | 2024-06-20 02:07 | XMS_ITS | Encounter Summary ---
Author Organization [facility] [place] [address] Care Team Providers Care Radiology Rn Name Role Phone Natty Mckinney MD Primary Care Provider Reason for Referral * Diagnostic Test (Routine) - Closed Specialty Diagnoses / Procedures Referred By Contac t Referred To Contact Radiology Diagnoses Elevated PSA Procedures MRI Pelvis wwo (Prostate) Daniele Seals MD [facility] [place] [place] [address] [place] [address] Referral ID Status Reason Start Date Expiration Date V isits Requested Visits Authorized [id number] Closed Specialty Service Requested 09/08/2019 09/07/2020 1 1 Reason for Visit * Diagnostic Test (Routine) - Closed Specialty Diagnoses / Procedures Referred By Contac t Referred To Contact Radiology Diagnoses Elevated PSA Procedures MRI Pelvis wwo (Prostate) Daniele Seals MD [facility] [place] [address] [place] [address] Referral ID Status Reason Start Date Expiration Date V isits Requested Visits Authorized [id number] Closed Specialty Service Requested 09/08/2019 09/07/2020 1 1 Encounter Details Date Type Department Care Team (Latest Contact Info) Description 09/23/2019 4:27 PM EST - 09/23/2019 11:59 PM EST Hospital Encounter MRI [facility] [place] [address] Daniele Seals MD [facility] [place] [address] Elevated PSA Discharge Disposition: Home Social History [...] PSA level: 6.5 Date of sextant biopsy:N/A [place] score: N/A TECHNIQUE: Multiparametric MRI of the [...] mLs documented in this encounter Care Teams Radiology Rn Relationship Specialty Start Date End Date Natty Mckinney MD [address] [place] [address] PCP - General 10/11/10 documented as of this encounter
--- OUTSIDE RECORDS SUMMARY | 2024-06-20 02:07 | XMS_ITS | Encounter Summary ---
Author Organization [facility] [place] [address] Care Team Providers Care Balance Bridge Assembler Name Role Phone Natty Mckinney MD Primary Care Provider [phone] Encounter Details Date Type Department Care Team (Late st Contact Info) Description 12/02/2019 [place] [address] Daniele Seals MD [facility] [place] [address] Social History Tobacco Use Types Packs/Day Years Used Date Smoking Tobacco: Never Assessed Sex and Gender Information Value Date Recorded Sex Assigned at Not on file Gender Identity Not on file Sexual Orientation Not on file documented as of this encounter Miscellaneous Notes * Telephone Encounter - Nicole Mayer - 12/02/2019 4:[address] Nicholson from [facility] called regarding pt. Pt had CT Prostate BX in 09/2019 - Case discussed at Tumor Board 10/30/19, no appointments have been scheduled to discuss plan with patient. Please Advise or Pt can be reached at [phone] documented in this encounter Plan of Treatment Not on file documented as of this encounter Visit Diagnoses Not on filedocumented in this encounter Care Teams Balance Bridge Assembler Relationship Specialty Start Date End Date Natty Mckinney MD [address] [place] [address] PCP - General 10/11/10 documented as of this encounter
--- OUTSIDE RECORDS SUMMARY | 2024-06-20 02:07 | XMS_ITS | Encounter Summary ---
Author Organization [facility] Address [facility] [place] [address] Care Team Providers Care Scratch Finisher Name Role Phone Natty Mckinney MD Primary Care Provider [phone] Encounter Details Date Type Department Care Team (Late st Contact Info) Description 09/26/2019 [place] [address] Daniele Seals MD [facility] [place] [address] Social History Tobacco Use Types Packs/Day Years [...] MRI results. He can be reached at [phone]. He is aware that Dr. Seals is not in clinic today, but states Dr. Seals can just leave a voicemail. documented in this encounter Plan of Treatment Not on file documented as of this encounter Visit Diagnoses Not on filedocumented in this encounter Care Teams Scratch Finisher Relationship Specialty Start Date End Date Natty Mckinney MD [address] [place] [address] PCP - General 10/11/10 documented as of this encounter
--- OUTSIDE RECORDS SUMMARY | 2024-06-20 02:07 | XMS_ITS | Encounter Summary ---
Author Organization [facility] [place] [address] Care Team Providers Care Heddler Tier Name Role Phone Natty Mckinney MD Primary Care Provider [phone] Reason for Visit * Consultation (Routine) - Closed Specialty Diagnoses / Procedures Referred By Claire guerrero Referred To Contact Radiation Oncology Diagnoses Malignant neoplasm of prostate Procedures Simulation for Radiation Therapy Planning Santiago Arroyo MD [address] [place] [address] [place] [address] [facility] Rad Onc Office [address] [place] [phone] Referral ID Status Reason Start Date Expiration Date V isits Requested Visits Authorized [id number] Closed Consult, Test & Treat 12/22/2019 12/21/2020 1 1 Encounter Details Date Type Department Care Team (Late st Contact Info) Description 01/28/2020 2:30 PM EDT Ancillary Appointment Radiation Oncology at [address] [address] Santiago Arroyo MD [address] [place] [address] DR [place] [address] Social History Tobacco Use Types [...] treatment time and check in with the Fender Finisher ?? You will have your vital signs [...] Note for External Beam Radiation Treatment Planning [facility] Mark Monte is a 54 y.o. year [...] of any short term side effects or halfway complications of therapy. I anticipate his SBRT [...] on filedocumented in this encounter Care Teams Heddler Tier Relationship Specialty Start Date End Date Natty Mckinney MD [address] [place] [address] PCP - General 10/11/10 documented as of this encounter
--- OUTSIDE RECORDS SUMMARY | 2024-06-20 02:07 | XMS_ITS | Encounter Summary ---
Author Organization [facility] Address [address] [place] [address] Care Team Providers Care Miller Kiln Dried Salt Name Role Phone Natty Mckinney MD Primary Care Provider [phone] Encounter Details Date Type Department Care Team (Late st Contact Info) Description 05/07/2023 Lab Requisition [facility] Pathology & Laboratory Medicine - [facility] [address] [place] [address] Outr Resulting Lab, Provider Social History Tobacco [...] 20 - 40 mg/dL 05/08/2023 9:37 EDT [facility] Blood VENOUS BLOOD / Unknown 05/07/2023 10:52 EDT 05/07/2023 21:44 EDT Provider Outr Resulting Lab CHEMISTRY & BLOOD GAS ORDERABLES [facility] [address] [place] [address] documented in this encounter Visit Diagnoses Not on filedocumented in this encounter Care Teams Miller Kiln Dried Salt Relationship Specialty Start Date End Date Natty Mckinney MD [address] [place] [address] PCP - General 09/29/15 documented as of this encounter
--- OUTSIDE RECORDS SUMMARY | 2024-06-20 02:07 | XMS_ITS | Encounter Summary ---
Author Organization [facility] Address [address] [place] [address] Care Team Providers Care Product Marketing Specialist Name Role Phone Natty Mckinney MD Primary Care Provider Encounter Details Date Type Department Care Team (Late st Contact Info) Description 03/24/2024 Lab Requisition [facility] Pathology & Laboratory Medicine - [facility] [address] [place] [address] Outr Resulting Lab, Provider Social History Tobacco [...] 20 - 40 mg/dL 03/25/2024 10:29 EDT [facility] Blood VENOUS BLOOD / Unknown 03/24/2024 12:55 EDT 03/24/2024 22:21 EDT Provider Outr Resulting Lab CHEMISTRY & BLOOD GAS ORDERABLES [facility] [address] [place], [place] [id number] documented in this encounter Visit Diagnoses Not on filedocumented in this encounter Care Teams Product Marketing Specialist Relationship Specialty Start Date End Date Natty Mckinney MD [address] [place] [address] PCP - General 09/29/15 documented as of this encounter
--- OUTSIDE RECORDS SUMMARY | 2024-06-20 02:07 | XMS_ITS | Encounter Summary ---
Author Organization [facility] Address [address] [place] [address] Care Team Providers Care Java Application Engineer Name Role Phone Natty Mckinney MD Primary Care Provider [phone] Encounter Details Date Type Department Care Team (Late st Contact Info) Description 08/27/2023 Lab Requisition [facility] Pathology & Laboratory Medicine - [facility] [address] [place] [address] Outr Resulting Lab, Provider Social History Tobacco [...] 20 - 40 mg/dL 08/28/2023 9:34 EDT [facility] Blood VENOUS BLOOD / Unknown 08/27/2023 13:00 EDT 08/27/2023 21:45 EDT Provider Outr Resulting Lab CHEMISTRY & BLOOD GAS ORDERABLES [facility] [address] [place] [address] documented in this encounter Visit Diagnoses Not on filedocumented in this encounter Care Teams Java Application Engineer Relationship Specialty Start Date End Date Natty Mckinney MD [address] [place] [address] PCP - General 09/29/15 documented as of this encounter
--- OUTSIDE RECORDS SUMMARY | 2024-06-20 02:07 | XMS_ITS | Encounter Summary ---
[place] [address] Care Team Providers Care Clinical Data Management Director Name Role Phone Natty Mckinney MD Primary Care Provider [phone] Reason for Referral * Diagnostic Test (Routine) - Closed Specialty Diagnoses / Procedures Referred By Claire t Referred To Contact Radiology Diagnoses Elevated PSA Procedures CT Guided Biopsy Other Daniele Seals MD [facility] [place] [address] [facility] [place] [address] Referral ID Status Reason Start Date Expiration Date V isits Requested Visits Authorized [id number] Closed Specialty Service Requested 09/26/2019 09/25/2020 1 1 Reason for Visit * Diagnostic Test (Routine) - Closed Specialty Diagnoses / Procedures Referred By Contac t Referred To Contact Radiology Diagnoses Elevated PSA Procedures CT Guided Biopsy Other Daniele Seals MD [facility] [place] [address] [facility] [place] [address] Referral ID Status Reason Start Date Expiration Date V isits Requested Visits Authorized [id number] Closed Specialty Service Requested 09/26/2019 09/25/2020 1 1 Encounter Details Date Type Department Care Team (Latest Contact Info) Description 10/08/2019 7:19 AM EST - 10/08/2019 11:59 PM EST Hospital Encounter CT Scan at [facility] [place] [address] Daniele Seals MD [facility] [address] Elevated PSA Discharge Disposition: Home Social History [...] Montiel RN - 10/08/2019 10:30 AM EST [facility] Vascular and Interventional Radiology Biopsy Discharge [...] be reported to you by your primary care navigator or the clinician who ordered the biopsy. [...] is during regular office hours, please call [phone]. If it is after regular office hours, or on weekends or holidays, please call [phone] and ask to speak to the Sub Acute Care Nurse professional employer consultant for Interventional Radiology. You have received medication [...] please contact your M. D. Revised 09/04/19 [facility] Vascular and Interventional Radiology Biopsy Discharge [...] be reported to you by your primary care navigator or the clinician who ordered the biopsy. [...] is during regular office hours, please call [phone]. If it is after regular office hours, or on weekends or holidays, please call [phone] and ask to speak to the Sub Acute Care Nurse professional employer consultant for Interventional Radiology. You have received medication [...] (home) Telephone Information: PCP Natty Mckinney MD [phone] Date/Time of call: October 09, 2019/9:25 AM [...] of : 1965 AGE: 54 y.o. Address: [address] [address] (home) Mobile: Telephone Information: Referring Provider: Daniele Seals REASON FOR VISIT: Order Questions Answers Where will study be performed? [facility] Radiology [120] Laterality Right Is the [...] this encounter H&P Notes * Barbara Pereztammy, BUILDING APPRAISER - 10/08/2019 8:37 AM EST Images from [...] Answers Where will study be performed? [facility] Radiology [120] Laterality Right Is the [...] file Gets together: Not on file Attends mu-ism service: Not on file Active member of [...] Prostate was localized with CT, patient prone. ??[place], mid and basal sites located on right and left. After sterile preparation of the overlying skin, 7 cc 1% lidocaine SQ was administered for anesthesia, and a 17 ga needle guide was advanced under CT guidance into the mass. The 18 ga biopsy gun was advanced coaxially and specimen obtained x 1-2 at each site and submitted individually labelled ??to pathology. ??Pooler were removed and hemostasis obtained by manual [...] Surgical Pathology Report (10/08/2019 9:45 AM EST) FINAL DIAGNOSIS (AP) [id number] ? Location: [facility] The signing pathologist has (i) examined the [...] Mac Coulter Verified: ??10/10/2019 ?Pathologist Performed at: ??-[facility] [place], [place], [place] DISCUSSION Scanned slides: [id number] . CLINICAL INFORMATION Specimen Submitted: A - Right Lateral Base B - Right Lateral Mid C - Right Lateral [place] D - Right Base E - Right Mid F - Right [place] G - Left Lateral Base H - Left Lateral Mid I - Left Lateral [place] J - Left Base K - Left Mid L - Left [place] Clinical History and Diagnosis: Patient status post [...] toto ??in 1 cassette labeled L1. ??crj 10/10/2019 2:41 PM EST [facility] PROSTATIC STRUCTURE / Unknown 10/08/2019 9:45 AM EST 10/08/2019 9:45 AM EST PROSTATIC STRUCTURE / Unknown 10/08/2019 9:45 AM EST 10/08/2019 9:45 AM EST PROSTATIC STRUCTURE / Unknown 10/08/2019 9:45 AM EST 10/08/2019 9:45 AM EST PROSTATIC STRUCTURE / Unknown 10/08/2019 9:45 AM EST 10/08/2019 9:45 AM EST PROSTATIC STRUCTURE / Unknown 10/08/2019 9:45 AM EST 10/08/2019 9:45 AM EST PROSTATIC STRUCTURE / Unknown 10/08/2019 9:45 AM EST 10/08/2019 9:45 AM EST PROSTATIC STRUCTURE / Unknown 10/08/2019 9:45 AM EST 10/08/2019 9:45 AM EST PROSTATIC STRUCTURE / Unknown 10/08/2019 9:45 AM EST 10/08/2019 9:45 AM EST PROSTATIC STRUCTURE / Unknown 10/08/2019 9:45 AM EST 10/08/2019 9:45 AM EST PROSTATIC STRUCTURE / Unknown 10/08/2019 9:45 AM EST 10/08/2019 9:45 AM EST PROSTATIC STRUCTURE / Unknown 10/08/2019 9:45 AM EST 10/08/2019 9:45 AM EST PROSTATIC STRUCTURE / Unknown 10/08/2019 9:45 AM EST 10/08/2019 9:45 AM EST Daniele Seals MD PATHOLOGY/CYTOLOGY ORDERABLES [facility] [place] [address] * Specimen to Pathology (10/08/2019 9:16 AM EST) AP Specimen 10/08/2019 9:16 AM EST 10/08/2019 9:16 AM EST Narrative [facility] - 10/08/2019 9:16 AM EST Specimen requisition ordered. ??Separate Pathology report to follow Daniele Seals MD PATHOLOGY/[place] [address] * Specimen to Pathology (10/08/2019 9:16 AM EST) AP Specimen 10/08/2019 9:16 AM EST 10/08/2019 9:16 AM EST Narrative [facility] - 10/08/2019 9:16 AM EST Specimen requisition ordered. ??Separate Pathology report to follow Daniele Seals MD PATHOLOGY/CYTOLOGY ORDERABLES Performing Organization Address [facility]/ZIP Co de Phone Number [facility] [place] [address] * Specimen to Pathology (10/08/2019 9:16 AM EST) AP Specimen 10/08/2019 9:16 AM EST 10/08/2019 9:16 AM EST Narrative [facility] - 10/08/2019 9:16 AM EST Specimen requisition ordered. ??Separate Pathology report to follow Daniele Seals MD PATHOLOGY/CYTOLOGY ORDERABLES Performing Organization Address [facility] [place] [address] * Specimen to Pathology (10/08/2019 9:16 AM EST) AP Specimen 10/08/2019 9:16 AM EST 10/08/2019 9:16 AM EST Narrative [facility] - 10/08/2019 9:16 AM EST Specimen requisition ordered. ??Separate Pathology report to follow Daniele Seals MD PATHOLOGY/CYTOLOGY ORDERABLES Performing Organization Address [facility] [place] [address] * Specimen to Pathology (10/08/2019 9:16 AM EST) AP Specimen 10/08/2019 9:16 AM EST 10/08/2019 9:16 AM EST Narrative [facility] - 10/08/2019 9:16 AM EST Specimen requisition ordered. ??Separate Pathology report to follow Daniele Seals MD PATHOLOGY/[place] [address] * Specimen to Pathology (10/08/2019 9:16 AM EST) AP Specimen 10/08/2019 9:16 AM EST 10/08/2019 9:16 AM EST Narrative [facility] - 10/08/2019 9:16 AM EST Specimen requisition ordered. ??Separate Pathology report to follow Daniele Seals MD PATHOLOGY/CYTOLOGY ORDERABLES Performing Organization Address City/[facility]/[place] [address] * Specimen to Pathology (10/08/2019 9:08 AM EST) AP Specimen 10/08/2019 9:08 AM EST 10/08/2019 9:08 AM EST Narrative [facility] - 10/08/2019 9:08 AM EST Specimen requisition ordered. ??Separate Pathology report to follow Daniele Seals MD PATHOLOGY/[place] [address] * Specimen to Pathology (10/08/2019 9:08 AM EST) AP Specimen 10/08/2019 9:08 AM EST 10/08/2019 9:08 AM EST Narrative [facility] - 10/08/2019 9:08 AM EST Specimen requisition ordered. ??Separate Pathology report to follow Daniele Seals MD PATHOLOGY/CYTOLOGY ORDERABLES [facility] [place] [address] * Specimen to Pathology (10/08/2019 9:08 AM EST) AP Specimen 10/08/2019 9:08 AM EST 10/08/2019 9:08 AM EST Narrative [facility] - 10/08/2019 9:08 AM EST Specimen requisition ordered. ??Separate Pathology report to follow Daniele Seals MD PATHOLOGY/CYTOLOGY ORDERABLES Performing Organization Address City/[facility] [place] [address] * Specimen to Pathology (10/08/2019 9:08 AM EST) AP Specimen 10/08/2019 9:08 AM EST 10/08/2019 9:08 AM EST Narrative [facility] - 10/08/2019 9:08 AM EST Specimen requisition ordered. ??Separate Pathology report to follow Daniele Seals MD PATHOLOGY/CYTOLOGY ORDERABLES Performing Organization Address [facility] [place] [address] * Specimen to Pathology (10/08/2019 9:08 AM EST) AP Specimen 10/08/2019 9:08 AM EST 10/08/2019 9:08 AM EST Narrative [facility] - 10/08/2019 9:08 AM EST Specimen requisition ordered. ??Separate Pathology report to follow Daniele Seals MD PATHOLOGY/CYTOLOGY ORDERABLES Performing Organization Address City/[facility] [place] [address] * Specimen to Pathology (10/08/2019 9:08 AM EST) AP Specimen 10/08/2019 9:08 AM EST 10/08/2019 9:08 AM EST Narrative [facility] - 10/08/2019 9:08 AM EST Specimen requisition ordered. ??Separate Pathology report to follow Daniele Seals MD PATHOLOGY/CYTOLOGY ORDERABLES [facility] [place] [address] * Specimen to Pathology (10/08/2019 8:12 AM EST) AP Specimen 10/08/2019 8:12 AM EST 10/08/2019 8:12 AM EST Narrative [facility] - 10/08/2019 8:12 AM EST Specimen requisition ordered. ??Separate Pathology report to follow Daniele Seals MD PATHOLOGY/CYTOLOGY ORDERABLES Performing Organization Address City/[facility]/[place] [address] documented in this encounter Visit Diagnoses Diagnosis [...] Sun10/08/19 at 1041, Angio/IR (Day of Procedure) New Bag 10/08/2019 9:15 AM EST 1,000 mLs 100 mL/hr documented in this encounter Care Teams Clinical Data Management Director Relationship Specialty Start Date End Date Natty Mckinney MD [address] [place] [address] PCP - General 10/11/10 documented as of this encounter
--- OUTSIDE RECORDS SUMMARY | 2024-06-20 02:07 | XMS_ITS | Encounter Summary ---
Author Organization [facility] Address [address] [place] [address] Care Team Providers Care Web Services Developer Name Role Phone Natty Mckinney MD Primary Care Provider [phone] Encounter Details Date Type Department Care Team (Late st Contact Info) Description 04/09/2023 Lab Requisition [facility] Pathology & Laboratory Medicine - [facility] [address] [place] [address] Outr Resulting Lab, Provider Social History Tobacco [...] 20 - 40 mg/dL 04/10/2023 9:40 EDT [facility] Blood VENOUS BLOOD / Unknown 04/09/2023 10:46 EDT 04/09/2023 21:10 EDT Provider Outr Resulting Lab CHEMISTRY & BLOOD GAS ORDERABLES [facility] [address] [place] [address] documented in this encounter Visit Diagnoses Not on filedocumented in this encounter Care Teams Web Services Developer Relationship Specialty Start Date End Date Natty Mckinney MD [address] [place] [address] PCP - General 09/29/15 documented as of this encounter
--- OUTSIDE RECORDS SUMMARY | 2024-06-20 02:07 | XMS_ITS | Encounter Summary ---
Author Organization [facility] Address [address] [place] [address] Care Team Providers Care Pharmacy Specialist Name Role Phone Natty Mckinney MD Primary Care Provider [phone] Encounter Details Date Type Department Care Team (Late st Contact Info) Description 10/29/2023 Lab Requisition [facility] Pathology & Laboratory Medicine - [facility] [address] [place] [address] Outr Resulting Lab, Provider Social History Tobacco [...] 20 - 40 mg/dL 10/30/2023 9:39 EST [facility] Blood VENOUS BLOOD / Unknown 10/29/2023 12:55 EST 10/29/2023 21:59 EST Provider Outr Resulting Lab CHEMISTRY & BLOOD GAS ORDERABLES [facility] [address] [place] [address] documented in this encounter Visit Diagnoses Not on filedocumented in this encounter Care Teams Pharmacy Specialist Relationship Specialty Start Date End Date Natty Mckinney MD [address] [place] [address] PCP - General 09/29/15 documented as of this encounter
--- OUTSIDE RECORDS SUMMARY | 2024-06-20 02:07 | XMS_ITS | Encounter Summary ---
Author Organization [facility] [place] [address] Care Team Providers Care Meeting Planner Name Role Phone Natty Mckinney MD Primary Care Provider [phone] Encounter Details Date Type Department Care Team (Latest Contact Info) Description 10/08/2019 7:05 AM EST Laboratory Appointment Lab [address] [place] [id number] Stomach ache; Epidemic vomiting syndrome; Ileostomy status [...] AM EST Stomach ache Epidemic [facility],PLT & AUTO DIFF [...] documented in this encounter Results * TSH [place] (10/08/2019 7:14 AM EST) TSH 1.94 0.27 - 4.20 mcIU/mL [facility] Blood specimen (specimen) Venous Draw / Unknown 10/08/2019 7:14 AM EST 10/08/2019 7:27 AM EST Narrative Resulting Agency Comment Spec In Lab Natty Mckinney MD CHEMISTRY ORDERABLES [facility] [place] [address] * Comprehensive metabolic panel (non-fasting) (10/08/2019 7:14 AM EST) Glucose Lvl 95 65 - 199 mg/dL [facility] Comment:Diabetes: >=200 mg/d L plus symptoms BUN 16 10 - 20 mg/dL [facility] Creatinine 0.93 0.80 - 1.50 mg/dL [facility] Sodium 138 135 - 145 [...] questions. Chloride 104 98 - 107 mmol/L [facility] CO2 23 22 - 31 mmol/L [facility] Anion Gap 11 5 - 15 mmol/L [facility] Calcium 9.4 8.5 - 10.5 mg/dL [facility] Total Protein 6.7 6.1 - 8.0 gm/dL [facility] Albumin 4.4 3.2 - 5.2 gm/dL [facility] AST 21 0 - 39 unit/L [facility] ALT 33 0 - 55 unit/L [facility] Alk Phos 97 40 - 130 unit/L [facility] Total Bilirubin 0.6 0.2 - 1.3 mg/dL [facility] Estimated GFR 92 >=60 mL/min/1. 73 m?? [facility] Comment: The eGFR was calculated using the CKD-EPI equation. As with all creatinine based estimates of kidney function, eGFR values calculated with the CKD-EPI equation are not accurate in patients with acute kidney failure, extremes of body mass or the acutely ill. [email or web address] eGFR 107 >=60 mL/min/1. 73 m?? [facility] Comment: The eGFR was calculated using the CKD-EPI equation. As with all creatinine based estimates of kidney function, eGFR values calculated with the CKD-EPI equation are not accurate in patients with acute kidney failure, extremes of body mass or the acutely ill. [email or web address] Blood specimen (specimen) Venous Draw / Unknown 10/08/2019 7:14 AM EST 10/08/2019 7:27 AM EST Narrative Resulting Agency Comment Spec In Lab Natty Mckinney MD CHEMISTRY ORDERABLES [facility] [place] [address] * (ABNORMAL) Differential, Automated (10/08/2019 7:14 AM EST) Neutrophils % 80.5 % [facility] Neutr Abs (ANC) 9.70(H) 1.70 - 6.10 x10(3)/[facility] Lymphocytes % 10.9 % [facility] Lymphocytes Abs 1.3 0.9 - 3.2 x10(3)/[facility] Monocytes % 5.8 % [facility] Monocyte Abs 0.7 0.3 - 0.9 x10(3)/[facility] Eosinophils % 0.7 % [facility] Eosinophils Abs 0.1 0.0 - 0.4 x10(3)/[facility] Basophils % 0.4 % [facility] Basophils Abs 0.0 0.0 - 0.1 x10(3)/[facility] Immature Gran % 1.70 % [facility] Comment: Immature granulocytes(IG's)percentage and absolute count will include metamyelocytes, myelocytes, and promyelocytes. Blood smears from CBCs yielding IG's will be scanned manually for concordance. If this scan disagrees with the automated IG or if promyelocytes are noted, a manual differential will be performed. Marisol Gran Abs 0.21(H) 0.00 - 0.04 x10(3)/[facility] Blood specimen (specimen) 10/08/2019 7:14 AM EST 10/08/2019 7:27 AM EST Narrative Resulting Agency Comment Spec In Lab Natty Mckinney MD HEMATOLOGY ORDERABLE S [facility] [place] [address] * (ABNORMAL) Hemogram (10/08/2019 7:14 AM EST) WBC 12.1(H) 4.0 - 9.5 x10(3)/[facility] RBC 4.53(L) 4.58 - 5.54 x10(6)/[facility] Hemoglobin 14.2 13.7 - 16.5 gm/dL [facility] Hematocrit 43.8 40.5 - 48.5 % [facility] MCV 96.7(H) 82.9 - 93.1 [facility] MCH 31.3 27.5 - 32.1 pg [facility] MCHC 32.4 32.0 - 35.7 gm/dL [facility] Platelets 221 145 - 357 x10(3)/[facility] RDWSD 46.5(H) 36.0 - 45.0 [facility] RDWCV 13.1 11.4 - 13.8 % [facility] MPV 10.6 7.6 - 12.9 [facility] nRBC % Auto 0.0 % [facility] nRBC Abs Auto 0.000 0.000 - 0.000 x10(3)/[facility] Blood specimen (specimen) 10/08/2019 7:14 AM EST 10/08/2019 7:27 AM EST Narrative Resulting Agency Comment Spec In Lab Natty Mckinney MD HEMATOLOGY ORDERABLE S [facility] [place] [address] * (ABNORMAL) Vitamin A (10/08/2019 7:14 AM EST) Pathologist [facility] Vitamin A 87.6(H) 32.5 - 78.0 mcg/dL [facility] Comment: ADDITIONAL INFORMATION This test was developed and its performance characteristics determined by [facility] in a manner consistent with CLIA requirements. This test has not been cleared or approved by the U.S. Food and Drug Administration. Test Performed by: [facility] - [address] [address] Eeg Technician: Valente Romero M.D. Ph.D.; [facility]# [id number] Blood specimen (specimen) 10/08/2019 7:14 AM EST 10/08/2019 10:36 AM EST Narrative Resulting Agency Comment Spec In Lab Natty Mckinney MD CHEMISTRY ORDERABLES Performing Organization Address [facility] de Phone Number [place] [address] * Magnesium (10/08/2019 7:14 AM EST) Magnesium 0.87 0.69 - 1.07 mmol/L [facility] Blood specimen (specimen) 10/08/2019 7:14 AM EST 10/08/2019 7:27 AM EST Narrative Resulting Agency Comment Spec In Lab Natty Mckinney MD CHEMISTRY ORDERABLES Performing Organization Address [facility] de Phone Number [place] [address] * CK (10/08/2019 7:14 AM EST) CK, Total 59 0 - 200 unit/L [facility] Blood specimen (specimen) 10/08/2019 7:14 AM EST 10/08/2019 7:27 AM EST Narrative Resulting Agency Comment Spec In Lab Natty Mckinney MD CHEMISTRY ORDERABLES Performing Organization Address [facility] Co de Phone Number [facility] [address] * Sedimentation rate (10/08/2019 7:14 AM EST) Sed Rate 5 0 - 15 mm/hr [facility] Blood specimen (specimen) 10/08/2019 7:14 AM EST 10/08/2019 7:27 AM EST Narrative Resulting Agency Comment Spec In Lab Natty Mckinney MD HEMATOLOGY ORDERABLE S Performing Organization Address City/[facility]/ZIP Co de Phone Number [facility] [place] [address] * Vitamin B1, whole blood (10/08/2019 7:14 AM EST) Vit B1 Lvl WB 177 70 - 180 nmol/L [facility] Comment: ADDITIONAL INFORMATION This test was developed and its performance characteristics determined by [facility] in a manner consistent with CLIA requirements. This test has not been cleared or approved by the U.S. Food and Drug Administration. Test Performed by: [facility] [place] [address] Eeg Technician: Valente Romero M.D. Ph.D.; CLIA# [id number] Blood specimen (specimen) 10/08/2019 7:14 AM EST 10/08/2019 8:35 AM EST Narrative Resulting Agency Comment Spec In Lab Natty Mckinney MD CHEMISTRY ORDERABLES Performing Organization Address City/[facility]/ZIP Co de Phone Number [facility] [place] [address] documented in this encounter Visit Diagnoses Diagnosis Stomach ache Dyspepsia and other specified disorders of function of stomach Epidemic vomiting syndrome Ileostomy status documented in this encounter Care Teams Meeting Planner Relationship Specialty Start Date End Date Natty Mckinney MD [address] [place] [address] PCP - General 10/11/10 documented as of this encounter
--- OUTSIDE RECORDS SUMMARY | 2024-06-20 02:07 | XMS_ITS | Clinical Summary ---
Author Organization [facility] Address [address] [place] [address] Care Team Providers Care Etcher Printed Circuit Boards Name Role Phone Natty Mckinney MD Primary Care Provider [phone] Allergies No known active allergies Medications Medication [...] naloxone (NARCAN) 4 mg/actuation nasal spray 1 [place] by nasal route as needed for Opioid [...] Active Ostomy Supplies Use as directed daily. [place] ostomy pouches part #8817 Active Ostomy Supplies by [facility] (non-drug; combo route) route daily. [place] wafers part # 8732 Active Active Problems [...] subsequent encounter 01/05/2021 Syncope 01/05/2021 Ileostomy status ([facility]) 01/05/2021 Chronic abdominal pain 01/05/2021 Crohn's disease ([facility]) 01/05/2021 Encounters Date Type Department Care Team Description 04/21/2024 Lab Requisition [facility] Pathology & Laboratory Medicine [address] [address] Outr Resulting Lab, Provider 03/24/2024 Lab Requisition [facility] Pathology & Laboratory Medicine [address] [address] Outr Resulting Lab, Provider from Last 3 Months Surgical History Surgery Date Site/Laterality Comments SMALL INTESTINE SURGERY ileostomy 1988 due to intractable crohn's flare Medical History Medical History Date Comments Crohn disease ([facility]) Prostate CA ([facility]) radiation [facility] Knee osteoarthritis Family History Medical History Relation [...] 20 - 40 mg/dL 04/22/2024 10:27 EDT [facility] Blood VENOUS BLOOD / Unknown 04/21/2024 10:35 EDT 04/21/2024 16:59 EDT Provider Outr Resulting Lab CHEMISTRY & BLOOD GAS ORDERABLES [facility] [address] [place] [address] from Last 3 Months Care Teams Etcher Printed Circuit Boards Relationship Specialty Start Date End Date Natty Mckinney MD [address] [place] [address] PCP - General 09/29/15
--- OUTSIDE RECORDS SUMMARY | 2024-06-20 02:07 | XMS_ITS | Encounter Summary ---
Author Organization [facility] Address [address] [place] [address] Care Team Providers Care Snack Bar Cook Name Role Phone Natty Mckinney MD Primary Care Provider [phone] Encounter Details Date Type Department Care Team (Late st Contact Info) Description 04/21/2024 Lab Requisition [facility] Pathology & Laboratory Medicine - [facility] [address] [place] [address] Outr Resulting Lab, Provider Social History Tobacco [...] 20 - 40 mg/dL 04/22/2024 10:27 EDT [facility] Blood VENOUS BLOOD / Unknown 04/21/2024 10:35 EDT 04/21/2024 16:59 EDT Provider Outr Resulting Lab CHEMISTRY & BLOOD GAS ORDERABLES [facility] [address] [place], [place] [id number] documented in this encounter Visit Diagnoses Not on filedocumented in this encounter Care Teams Snack Bar Cook Relationship Specialty Start Date End Date Natty Mckinney MD [address] [place] [address] PCP - General 09/29/15 documented as of this encounter
--- OUTSIDE RECORDS SUMMARY | 2024-06-20 02:08 | XMS_ITS | Encounter Summary ---
Author Organization [facility] Address [address] [place] [address] Care Team Providers Care Computer Salesperson Retail Name Role Phone Unavailable Primary Care Provider Unavailabl e Encounter Details Date Type Department Care Team (Latest Contact Info) Description 03/09/2003 7:16 EDT - 03/09/2003 11:59 EDT Hospital Encounter [address] [address] Gold Chavez MD Discharge Disposition: Auto Discharge [...]
--- OUTSIDE RECORDS SUMMARY | 2024-06-20 02:08 | XMS_ITS | Encounter Summary ---
Author Organization [facility] Address [address] [place] [address] Care Team Providers Care Electric Welder Helper Name Role Phone Unavailable Primary Care Provider Adi e Encounter Details Date Type Department Care Team (Late st Contact Info) Description 03/24/2003 9:32 EDT Hospital Encounter [address] [address] Gold Chavez MD Social History Tobacco Use [...]
--- OUTSIDE RECORDS SUMMARY | 2024-06-20 02:08 | XMS_ITS | Encounter Summary ---
Author Organization [facility] Address [address] [place] [address] Care Team Providers Care Auto Body Worker Name Role Phone Natty Mckinney MD Primary Care Provider [phone] Reason for Visit * Reason Comments New Patient Visit Joint pain- pt state s knees (right one being replaced) and hands right [facility] joint. Left hip points to joint. Encounter Details Date Type Department Care Team (Late st Contact Info) Description 01/06/2021 14:15 EST Office Visit [facility] Rhe[facility]ology [address] [place] [address] Ashley Massey MD [address] [facility] [address] [place] [address] Left hip pain (Primary Dx); [...] Dr Irizarry Ice and rest the wrists [facility] Patient Instructions Learning About Arthritis at [...] and less strength when you pinch or keg inspector things. Symptoms may come and go, stay [...] manage mild or moderate arthritis pain with [id number] pain relievers. These include medicines that reduce [...] Where can you learn more? Go to https://[email or web address].net/[email or web address] or log into your [employer] account at [email or web address] Enter T110 in the search box to learn more about Learning About Arthritis at the Base of the Thumb. Current as of: October 27, 2019?Content Version: 12.6 ?? [id number] smsPREP. Care instructions adapted under license by [facility]. If you have questions about a medical condition or this instruction, always ask your healthcare professional. smsPREP disclaims any warranty or liability for your use of this information. documented in this encounter Progress Notes * Ashley Massey MD - 01/06/2021 3155 EST [facility] Rheumatology Chief Complaint Patient presents with ??? [...] Knee osteoarthritis ??? Prostate CA (HCC-CMS) radiation [facility] Family History Problem Relation Age of Onset ??? Crohn's Disease Son Social History: Smoker 2 grown children. From [facility]. Family members nearby. No alcohol.Occasional marijuana Review [...] reviewed Notes from urology radiation team at [facility] PCP visits and labs. Labs: Lab Requisition [...] 01/06/2021 documented in this encounter Care Teams Auto Body Worker Relationship Specialty Start Date End Date Natty Mckinney MD [address] [place] [address] PCP - General 09/29/15 documented as of this encounter
--- OUTSIDE RECORDS SUMMARY | 2024-06-20 02:08 | XMS_ITS | Encounter Summary ---
Author Organization [facility] Address [address] [place] [address] Care Team Providers Care Property Field Adjuster Name Role Phone Unavailable Primary Care Provider Adi e Encounter Details Date Type Department Care Team (Late st Contact Info) Description 07/10/2003 Results Only [facility] - Maple conversion [address] [place] [address] Yoel Marie, DO [address] [facility] [address] [place] [address] Social History Tobacco Use Types [...] ? KRISHAN MONTE ? Accession #: ? [id number] ? : ? 1965 (Age: 38) ??M [...] Marie DO PATHOLOGY ORDER MICHAEL [facility] [address] [place] [address] documented in this encounter Visit Diagnoses Not on filedocumented in this encounter
--- OUTSIDE RECORDS SUMMARY | 2024-06-20 02:08 | XMS_ITS | Encounter Summary ---
Author Organization [facility] Address [address] [place] [address] Care Team Providers Care Track Fitter Name Role Phone Natty Mckinney MD Primary Care Provider [phone] Encounter Details Date Type Department Care Team (Late st Contact Info) Description 10/28/2021 Lab Requisition [facility] Pathology & Laboratory Medicine - [facility] [address] [place] [address] Outr Resulting Lab, Provider Social History Tobacco [...] gonorrhoeae Result Negative Negative 10/31/2021 15:21 EST [facility] Chlamydia trachomatis Result Negative Negative 10/31/2021 15:21 EST [facility] Urine URINE / Unknown 10/27/2021 1 5:30 EST 10/28/2021 21:18 EST Provider Outr Resulting Lab MICROBIOLOGY - GENERAL ORDERABLES Performing Organization Address City/State/[facility] Co de Phone Number [facility] [address] [place] [address] documented in this encounter Visit Diagnoses Not on filedocumented in this encounter Care Teams Track Fitter Relationship Specialty Start Date End Date Natty Mckinney MD [address] [place] [address] PCP - General 09/29/15 documented as of this encounter
--- OUTSIDE RECORDS SUMMARY | 2024-06-20 02:08 | XMS_ITS | Encounter Summary ---
Author Organization [facility] Address [address] [place] [address] Care Team Providers Care Riding Coach Name Role Phone Natty Mckinney MD Primary Care Provider [phone] Encounter Details Date Type Department Care Team (Late st Contact Info) Description 01/04/2021 Abstract [facility] Rheumatology [address] [place] [address] Ashley Massey MD [address] [facility] [address] [place] [address] Social History Tobacco Use Types [...] by misc (non-drug; combo route) route daily. [place] wafers part # 4977 Ostomy Supplies Use as directed daily. [place] ostomy pouches part #8397 methadone (DOLOPHINE) 10 mg tablet Take 10 [...] hours. added in this encounter Care Teams Riding Coach Relationship Specialty Start Date End Date Natty Mckinney MD [address] [place] [address] PCP - General 09/29/15 documented as of this encounter
--- OUTSIDE RECORDS SUMMARY | 2024-06-20 02:08 | XMS_ITS | Encounter Summary ---
Author Organization [facility] Address [address] [place] [address] Care Team Providers Care Remotely Operated Vehicle Name Role Phone Unavailable Primary Care Provider Unavailpoly e Encounter Details Date Type Department Care Team (Latest Contact Info) Description 02/23/2003 13:27 EDT Hospital Encounter [facility] - Other [address] [place] [address] Gold Chavez MD Unknown, Provider, Discharge Disposition: [...]
--- OUTSIDE RECORDS SUMMARY | 2024-06-20 02:08 | XMS_ITS | Encounter Summary ---
Author Organization [facility] Address [address] [place] [address] Care Team Providers Care Supervisor Cloth Winding Name Role Phone Unavailable Primary Care Provider Unavailabl e Encounter Details Date Type Department Care Team (Late st Contact Info) Description 02/23/2003 Results Only *[facility] [place] [address] [place] [address] Gold Chavez MD Social History Tobacco Use [...] & PF4 ORD ERABLES Performing Organization Address [facility] Co de Phone Number [facility] [address] [place] [address] * (ABNORMAL) IRON (02/23/2003 11:57 EDT) Pathologist [facility] Iron 38(L) 70 - 180 ug/dl [facility] 02/23/2003 11:5 7 EDT 02/23/2003 11:58 EDT Gold Chavez MD CHEMISTRY & BLOOD GA S ORDERABLES Performing Organization Address [facility] Co de Phone Number [facility] [address] [place] [address] * (ABNORMAL) IBC (02/23/2003 11:57 EDT) Pathologist [facility] TIBC 499(H) 225 - 425 ug/dl [facility] 02/23/2003 11:5 7 EDT 02/23/2003 11:58 EDT Gold Chavez MD CHEMISTRY & BLOOD GA S ORDERABLES Performing Organization Address [facility] Co de Phone Number [facility] [address] [place] [address] * (ABNORMAL) GGT (02/23/2003 11:57 EDT) Pathologist [facility] GGT 79(H) 15 - 73 U/L [facility] 02/23/2003 11:5 7 EDT 02/23/2003 11:58 EDT Gold Chavez MD CHEMISTRY & BLOOD GA S ORDERABLES Performing Organization Address [facility] Phone Number [facility] [address] [place] [address] * FOLATE (02/23/2003 11:57 EDT) Pathologist [facility] Folate >24.0 ng/mL [facility] Comment: Deficient: ??Less than 3.4 ng/mL Indeterminate: ??3.4-5.4 ng/mL Normal: ??Greater than 5.4 ng/mL Note new reference range. 02/23/2003 11:5 7 EDT 02/23/2003 11:58 EDT Glod Chavez MD CHEMISTRY & BLOOD GA S ORDERABLES Performing Organization Address [facility] Phone Number [facility] [address] [place] [address] * (ABNORMAL) FERRITIN (02/23/2003 11:57 EDT) Pathologist [facility] Ferritin 40(L) 42 - 313 ng/ml [facility] 02/23/2003 11:5 7 EDT 02/23/2003 11:58 EDT Gold Chavez MD CHEMISTRY & BLOOD GA S ORDERABLES Performing Organization Address [facility] de Phone Number [facility] [address] [place] [address] * COMPREHENSIVE METABOLIC PANEL (CMP) (02/23/2003 11:57 EDT) Pathologist [facility] Potassium 4.4 3.5 - 5.0 mEq/L [facility] [...] GA S ORDERABLES [facility] [address] [place] [address] * (ABNORMAL) HEMAGRAM AND DIFFERENTIAL (02/23/2003 11:57 [...] & DNA PROBE ORDERABLES Performing Organization Address [facility] de Phone Number [facility] [address] [place] [address] * (ABNORMAL) VITAMIN B12 (02/23/2003 11:57 EDT) Vitamin B-12 >2000(H) 250 - 1100 pg/ml [facility] 02/23/2003 11:5 7 EDT 02/23/2003 11:58 EDT Gold Chavez MD CHEMISTRY & BLOOD GA S ORDERABLES Performing Organization Address [facility] de Phone Number [facility] [address] [place] [address] documented in this encounter Visit Diagnoses Not on filedocumented in this encounter
--- OUTSIDE RECORDS SUMMARY | 2024-06-20 02:08 | XMS_ITS | Encounter Summary ---
Author Organization [facility] Address [address] [place] [address] Care Team Providers Care Trigonometry Teacher Name Role Phone Natty Mckinney MD Primary Care Provider [phone] Encounter Details Date Type Department Care Team (Late st Contact Info) Description 12/22/2020 Lab Requisition [facility] Pathology & Laboratory Medicine - [facility] [address] [place], [place] [address] Outr Resulting Lab, Provider Social History Tobacco [...] 0.0 - 3.5 ng/mL 12/22/2020 17:47 EST [facility] Blood VENOUS BLOOD / Unknown 12/21/2020 13:54 EST 12/22/2020 16:13 EST Narrative [facility] - 12/22/2020 17:47 EST NOTE: Serum PSA concentration should not be interpreted as absolute evidence for the presence or absence of malignant disease. Assayed on Siemens ADVIA Centaur XPT using chemiluminescent technology.??Values obtained by using different assay methods cannot be used interchangeably. Provider Outr Resulting Lab CHEMISTRY & BLOOD GAS ORDERABLES [facility] [address] [place] [address] documented in this encounter Visit Diagnoses Not on filedocumented in this encounter Care Teams Trigonometry Teacher Relationship Specialty Start Date End Date Natty Mckinney MD [address] [place] [address] PCP - General 09/29/15 documented as of this encounter
--- OUTSIDE RECORDS SUMMARY | 2024-06-20 02:08 | XMS_ITS | Encounter Summary ---
Author Organization [facility] Address [address] [place] [address] Care Team Providers Care Master Automotive Technician Name Role Phone Natty Mckinney MD Primary Care Provider [phone] Encounter Details Date Type Department Care Team (Late st Contact Info) Description 04/17/2020 Lab Requisition [facility] Pathology & Laboratory Medicine - [address] [id number] Outr Resulting Lab, Provider Social History Tobacco [...] 0.0 - 3.5 ng/mL 04/19/2020 10:28 EDT [facility] Blood VENOUS BLOOD / Unknown 04/16/2020 10:35 EDT 04/18/2020 16:47 EDT Narrative [facility] - 04/19/2020 10:28 EDT NOTE: Serum PSA concentration should not be interpreted as absolute evidence for the presence or absence of malignant disease. Assayed on Siemens ADVIA AffinityClickaur XPT using chemiluminescent technology.??Values obtained by using different assay methods cannot be used interchangeably. Provider Outr Resulting Lab CHEMISTRY & BLOOD GAS ORDERABLES [facility] [address] [place] [address] documented in this encounter Visit Diagnoses Not on filedocumented in this encounter Care Teams Master Automotive Technician Relationship Specialty Start Date End Date Natty Mckinney MD [address] [place] [address] PCP - General 09/29/15 documented as of this encounter
--- OUTSIDE RECORDS SUMMARY | 2024-06-20 02:08 | XMS_ITS | Encounter Summary ---
Author Organization [facility] Address [address] [place] [address] Care Team Providers Care Purler Name Role Phone Unavailable Primary Care Provider Adi e Encounter Details Date Type Department Care Team (Late st Contact Info) Description 12/04/2001 Results Only [facility] - Maple conversion [address] [place] [address] Yoel Marie, DO [address] [address] [address] [place] [address] Social History Tobacco Use Types [...] ? KRISHAN MONTE ? Accession #: ? [id number] ? : ? 1965 (Age: 36) ??M [...] A2 ?Smaller tissues A3 ?Largest tissue A4 ?Concrete Buildings Assembler additional skin ([place])/[facility] End of Report [facility] 12/04/2001 12/05/2001 9:3 9 EST Yoel Marie DO PATHOLOGY ORDER MICHAEL [facility] [address] [place] [address] documented in this encounter Visit Diagnoses Not on filedocumented in this encounter
--- OUTSIDE RECORDS SUMMARY | 2024-06-20 02:08 | XMS_ITS | Encounter Summary ---
Author Organization [facility] Address [address] [place] [address] Care Team Providers Care Auto Specialty Services Manager Name Role Phone Unavailable Primary Care Provider Unavailabl e Encounter Details Date Type Department Care Team (Latest Contact Info) Description 04/20/2003 7:44 EDT - 04/20/2003 11:59 EDT Hospital Encounter [address] [address] Gold Chavez MD Discharge Disposition: Auto Discharge [...]
--- OUTSIDE RECORDS SUMMARY | 2024-06-20 02:08 | XMS_ITS | Encounter Summary ---
Author Organization [facility] Address [address] [place] [address] Care Team Providers Care Broadcast Maintenance Technician Name Role Phone Natty Mckinney MD Primary Care Provider [phone] Encounter Details Date Type Department Care Team (Late st Contact Info) Description 06/08/2021 Lab Requisition [facility] Pathology & Laboratory Medicine - [facility] [address] [place] [address] Outr Resulting Lab, Provider Social History Tobacco [...] 0.0 - 3.5 ng/mL 06/08/2021 18:11 EDT [facility] Blood VENOUS BLOOD / Unknown 06/07/2021 14:38 EDT 06/08/2021 16:38 EDT Narrative [facility] - 06/08/2021 18:11 EDT NOTE: Serum PSA concentration should not be interpreted as absolute evidence for the presence or absence of malignant disease. Assayed on Universal AvenueIA Consult A Doctoraur XPT using chemiluminescent technology.??Values obtained by using different assay methods cannot be used interchangeably. Provider Outr Resulting Lab CHEMISTRY & BLOOD GAS ORDERABLES [facility] [address] [place] [address] documented in this encounter Visit Diagnoses Not on filedocumented in this encounter Care Teams Broadcast Maintenance Technician Relationship Specialty Start Date End Date Natty Mckinney MD [address] [place] [address] PCP - General 09/29/15 documented as of this encounter
--- OUTSIDE RECORDS SUMMARY | 2024-06-20 02:08 | XMS_ITS | Encounter Summary ---
Author Organization [facility] Address [address] [place] [address] Care Team Providers Care Wet Machine Tender Name Role Phone Unavailable Primary Care Provider Adi e Encounter Details Date Type Department Care Team (Late st Contact Info) Description 08/11/2003 Results Only [facility] - Maple conversion [address] [place] [address] Yoel Marie, DO [address] [facility] [address] [place] [address] Social History Tobacco Use Types [...] ? KRISHAN MONTE ? Accession #: ? [id number] ? : ? 1965 (Age: 38) ??M [...] specimen is entirely submitted as (B). ??([facility] End of Report [facility] 08/11/2003 08/12/2003 8:5 9 EDT Yoel Marie DO PATHOLOGY ORDER MICHAEL [facility] [address] [place] [address] documented in this encounter Visit Diagnoses Not on filedocumented in this encounter
[2024-06-20] MEDS: Normal Saline Flush 10 ML SYR IVP (13:21)
[2024-06-23] MEDS: Normal Saline Flush 10 ML SYR IVP (13:08)
[2024-06-23 14:22] LABS: Abs Immature Grans 0.03 10^3/uL (0.0-0.06); Absolute Basophil Count 0.06 10^3/uL (0.0-0.2); Absolute Monocyte Count 0.79 10^3/uL (0.1-0.8); Absolute Neutrophil Count 7.21 10^3/uL (1.2-6.7); Basophils % 0.6 %; HCT 37.3 % (40.0-50.0); HGB 12.1 g/dL (13.5-17.5); Immature Grans % 0.3 %; Lymphocytes % 21.9 %; MCHC 32.4 % (32.0-36.0); MCV 96 fL (80-95); MPV 11.4 fL (8.0-11.0); Monocytes % 7.5 %; Neutrophils % 68.7 %; Platelet Count 275 10^3/uL (130-400); RDW 14.2 % (11.8-14.1); RDW-SD 50.1 fL; WBC 10.49 10^3/uL (4.4-10.8)
[2024-06-23 14:37] LABS: ALT 40 U/L (16-63); AST 24 U/L (15-37); Albumin 3.2 g/dL (3.4-5.0); Alkaline Phosphatase 195 U/L (46-116); Anion Gap 7.7 mmol/L (3-11); BUN 17 mg/dL (7-18); Bilirubin, Total 0.25 mg/dL (0.2-1.0); CO2 29.3 mmol/L (21.0-32.0); CREATININE 0.9 mg/dL (0.70-1.30); Chloride 102 mmol/L (98-107); Estimated GFR 97.78 (mL/min/1.73m2); Glucose 115 mg/dL (74-106); Potassium 3.5 mmol/L (3.5-5.1); Sodium 139 mmol/L (136-145); Total Protein 6.5 g/dL (6.4-8.2); Triglyceride 58 mg/dL (<150)
[2024-07-04] MEDS: Normal Saline Flush 10 ML SYR IVP (13:01)
[2024-07-07] MEDS: Normal Saline Flush 10 ML SYR IVP (14:00)
[2024-07-07 14:07] LABS: Abs Immature Grans 0.01 10^3/uL (0.0-0.06); Absolute Basophil Count 0.05 10^3/uL (0.0-0.2); Absolute Eosinophil Count 0.14 10^3/uL (0.0-0.7); Absolute Lymphocyte Count 2.96 10^3/uL (1.2-3.4); Absolute Monocyte Count 0.92 10^3/uL (0.1-0.8); Absolute Neutrophil Count 5.94 10^3/uL (1.2-6.7); Basophils % 0.5 %; Eosinophils % 1.4 %; HCT 34.8 % (40.0-50.0); HGB 11.5 g/dL (13.5-17.5); Immature Grans % 0.1 %; Lymphocytes % 29.5 %; MCH 31.1 pg (27.0-33.0); MCV 94 fL (80-95); MPV 11.6 fL (8.0-11.0); Monocytes % 9.2 %; Neutrophils % 59.3 %; Platelet Count 243 10^3/uL (130-400); RDW 13.8 % (11.8-14.1); RDW-SD 47.2 fL; WBC 10.02 10^3/uL (4.4-10.8)
[2024-07-07 14:30] LABS: ALT 41 U/L (16-63); AST 36 U/L (15-37); Albumin 3.1 g/dL (3.4-5.0); Alkaline Phosphatase 164 U/L (46-116); Anion Gap 8.8 mmol/L (3-11); BUN 19 mg/dL (7-18); Bilirubin, Total 0.56 mg/dL (0.2-1.0); CO2 31.2 mmol/L (21.0-32.0); Calcium 8.7 mg/dL (8.5-10.1); Chloride 96 mmol/L (98-107); Estimated GFR 86.16 (mL/min/1.73m2); Glucose 125 mg/dL (74-106); Magnesium 1.8 mg/dL (1.8-2.4); PHOSPHORUS 3.3 mg/dL (2.6-4.7); Potassium 3.3 mmol/L (3.5-5.1); Sodium 136 mmol/L (136-145); Total Protein 6.5 g/dL (6.4-8.2); Triglyceride 54 mg/dL (<150)
[2024-07-07 14:46] LABS: C-Reactive Protein 4.31 mg/dL (<or=0.5)
[2024-07-08 11:35] LABS: Prealbumin 23 mg/dL (20-40)
[2024-07-18] MEDS: Normal Saline Flush 10 ML SYR IVP (13:06)
== END 2024-07-19 23:59 | disposition home or self-care (01) ==
LOC: INF 01:04
PROVIDERS: PCP Family Medicine; Visit Provider Family Medicine
DX: K50.90 Crohn's disease, unspecified, without complications (principal)
CPT/HCPCS: 36592; 80053; 83735; 84100; 84134; 84478; 85025; 86140

== ENCOUNTER 2024-08-12 15:52 | Outpatient (CLI) | payer MEDICARE, SELFPAY ==
--- NOTE | 2024-08-12 | DI.RAD_ITS ---
Exam(s) XR HIP LT COMPLETE AP PELVIS EXAM: XR HIP LT COMPLETE AP PELVIS CLINICAL HISTORY: PAIN OF L HIP JOINT, M25.552. TECHNIQUE: 2D digital imaging was performed. COMPARISON: CT CT CHEST PE CTA from 04/27/2024 FINDINGS: 3 views No evidence of pelvic nor hip fractures. No hip joint space narrowing. Additional view of the left hip reveals a small osteophyte off the lateral aspect of the femoral head despite absence of joint sp evens narrowing. There are no osseous lesions. Symmetrical small wire densities on both sides of the symphysis pubis noted. Possibly related to freddy dder suspension surgery. IMPRESSION: No hip fractures. Minimal degenerative change noted in the left hip. DATA REPOSITORY: RADIATION DOSE DELIVERED:
--- OUTSIDE RECORDS SUMMARY | 2024-08-12 15:54 | XMS_ITS | Continuity of Care Document ---
Author Organization [facility] Address [address] [place] [address] Care Team Providers Care Health Associate Name Role Phone SONJA ALVA Primary Care Physician [phone] Encounter [facility] NBR [id number] Date(s): 03/07/24 - 03/07/24 [facility] [address] [place] [address] [place] Discharge Disposition: Home Patient Care team information Care Team Personnel Name: SONJA ALVA Position: No Access Member Role: Primary Care Physician Address: Address: [address] [place] [phone]
--- OUTSIDE RECORDS SUMMARY | 2024-08-12 15:54 | XMS_ITS | Continuity of Care Document ---
Author Organization [facility] Address [address] [place] [address] Care Team Providers Care Sand Slinger Operator Name Role Phone SONJA ALVA Primary Care Physician Encounter [facility] NBR [id number] Date(s): 03/11/24 - 03/11/24 [facility] [address] [place] [address] [place] Discharge Disposition: Home Patient Care team information Care Team Personnel Name: SONJA ALVA Position: No Access Member Role: Primary Care Physician Address: Address: [address] [place] [phone]
--- OUTSIDE RECORDS SUMMARY | 2024-08-12 15:55 | XMS_ITS | Encounter Summary ---
Author Organization [facility] Address [facility] [place] [address] Care Team Providers Care Pot Tender Name Role Phone Natty Mckinney MD Primary Care Provider [phone] Reason for Referral * Consultation (Routine) - Closed Specialty Diagnoses / Procedures Referred By Claire guerrero Referred To Contact Orthopaedics Diagnoses Osteoarthritis of carpometacarpal (CMC) joint of thumb, unspecified laterality, unspecified osteoarthritis type Ulnar abutment syndrome of both wrists Ector Irizarry MD [address] [place] [address] Willie Rivas MD [facility] [place] [address] Referral ID Status Reason Start Date Expiration Date V isits Requested Visits Authorized [id number] Closed Consult, Test & Treat PCP Updated and/or Approved 02/08/2022 02/08/2023 6 6 Encounter Details Date Type Department Care Team (Latest Contact Info) Description 02/08/2022 Transcribe Orders eDH Incoming Referrals [phone] Ector Irizarry MD [address] [place], [place] [id number] Osteoarthritis of carpometacarpal (CMC) joint of thumb, [...] wrists documented in this encounter Care Teams Pot Tender Relationship Specialty Start Date End Date Natty Mckinney MD [address] [place] [address] PCP - General 10/11/10 documented as of this encounter
--- OUTSIDE RECORDS SUMMARY | 2024-08-12 15:55 | XMS_ITS | Encounter Summary ---
Author Organization [facility] [place] [address] Care Team Providers Care Insulation Cutter Name Role Phone Natty Mckinney MD Primary Care Provider [phone] Encounter Details Date Type Department Care Team (Late st Contact Info) Description 09/28/2022 1:00 PM EST Office Visit Radiation Oncology at [address] [address] Natty Lawton, ORE ROASTER [facility] [place] [address] Malignant neoplasm of prostate (Primary Dx) Social [...] this encounter Progress Notes * Natty Lawton, ORE ROASTER - 09/28/2022 1:00 PM ESTSummary: 57 year old M with low- risk prostate cancer (cTx, PSA 7.2, Gl 6). Compl SBRT 03/19/20 No ADT Images from the original note were not included. [facility] [place] [address] Phone: RADIATION ONCOLOGY FOLLOW UP NOTE Date of visit: 09/18/2022 Patient Krishan Monte 1965 PCP: Natty Mckinney MD Urologist: Radiation oncologist: Dr. Santiago Arroyo Chief Complaint: follow up/labs for prostate cancer Time since completed RT: 03/19/20 ADT:none Current treatment:Surveillance HPI: Name Krishan Monte Date of 1965 ? PCP Natty Mckinney MD Referring MD (if different) Dr. Selas ? Diagnosis Cancer Staging Malignant neoplasm of [...] Start Date End Date 03/10/20 03/19/20 ?? GRIEF COUNSELLOR TREATMENT MANCILLA: ?? Interim HPI: 04/07/21 second read bone scan: FADUMO, no osseous mets. ?? Medications 03/22/22 0694 Medication Sig Taking? celecoxib (CeleBREX) 200 mg [...] % Gel Apply topically. naloxone 4 mg/actuation [place], Non-Aerosol by Nasal route. Ostomy Supplies Misc [...] OTHER 10/08/2019 CT Guided Biopsy Other 10/08/2019 [facility] RAD CAT SCAN Family History Problem [...] with his PCP who is based in [facility] system. She follows his vit and [...] the radiation therapy/prostate cancer Natty Lawton MSN, ORE ROASTER, [employer] Nurse Practitioner Radiation Oncology documented in this encounter Plan of Treatment Not on file documented as of this encounter Visit Diagnoses Diagnosis Malignant neoplasm of prostate- Primary documented in this encounter Care Teams Insulation Cutter Relationship Specialty Start Date End Date Natty Mckinney MD [address] [place] [address] PCP - General 10/11/10 documented as of this encounter
--- OUTSIDE RECORDS SUMMARY | 2024-08-12 15:55 | XMS_ITS | Encounter Summary ---
Author Organization [facility] [address] Care Team Providers Care Research Rn Spec Name Role Phone Natty Mckinney MD Primary Care Provider [phone] Encounter Details Date Type Department Care Team (Late st Contact Info) Description 10/10/2022 Telephone [place] [address] Natty Lawton APRN [facility] [place] [address] Social History Tobacco Use Types Packs/Day Years [...] in Pee's L hip. The report from [facility] is inaccurate and states on one hand [...] who have questions please contact the health life care planner that requested your imaging first. ? Electronically signed by: King Victoria MD, [facility] ([phone]), at 10/11/2022 2:55 PM Narrative 10/11/2022 2:55 PM EST EXAMINATION: REQUEST FOR 2ND READ CT ABDOMEN AND PELVIS CLINICAL HISTORY: sclerotic bone lesion L iliac. Report from [facility] inconsistent with one comment showing lesion more [...] prostate documented in this encounter Care Teams Research Rn Spec Relationship Specialty Start Date End Date Natty Mckinney MD [address] [place] [address] PCP - General 10/11/10 documented as of this encounter
--- OUTSIDE RECORDS SUMMARY | 2024-08-12 15:55 | XMS_ITS | Encounter Summary ---
Author Organization [facility] Address [facility] [place] [address] Care Team Providers Care Feed Mill Manager Name Role Phone Natty Mckinney MD Primary Care Provider Encounter Details Date Type Department Care Team (Late st Contact Info) Description 12/25/2023 Telephone Hematology/Oncology at [address] [address] Rona Hui Social History Tobacco [...] on filedocumented in this encounter Care Teams Feed Mill Manager Relationship Specialty Start Date End Date Natty Mckinney MD [address] [place] [address] PCP - General 10/11/10 documented as of this encounter
--- OUTSIDE RECORDS SUMMARY | 2024-08-12 15:55 | XMS_ITS | Encounter Summary ---
Author Organization [facility] [place] [address] Care Team Providers Care Beauty Operator Apprentice Name Role Phone Natty Mckinney MD Primary Care Provider [phone] Encounter Details Date Type Department Care Team (Late st Contact Info) Description 12/10/2023 Telephone Radiation Oncology at [address] [address] Rona Hui Social History Tobacco [...] on filedocumented in this encounter Care Teams Beauty Operator Apprentice Relationship Specialty Start Date End Date Natty Mckinney MD [address] [place], [place] [address] PCP - General 10/11/10 documented as of this encounter
--- OUTSIDE RECORDS SUMMARY | 2024-08-12 15:55 | XMS_ITS | Encounter Summary ---
Author Organization [facility] [place] [address] Care Team Providers Care Home [employer]ot Rep Name Role Phone Natty Mckinney MD Primary Care Provider [phone] Reason for Referral * Consultation (Routine) - Canceled Specialty Diagnoses / Procedures Referred By Contangela guerrero Referred To Contact Internal Medicine Diagnoses Weight loss, unintentional Crohn's disease with complication, unspecified gastrointestinal tract location Natty Mckinney MD [address] [place] [address] [facility] Internal Medicine [address] [place] [address] Referral ID Status Reason Start Date Expiration Date Visits Requested Visits Authorized [id number] Canceled Continuity of Care PCP Updated and/or Approved 01/16/2023 01/16/2024 12 12 Encounter Details Date Type Department Care Team (Latest Contact Info) Description 01/16/2023 Transcribe Orders eD Incoming Referrals [phone] Natty Mckinney MD [address] [place] [address] Weight loss, unintentional; Crohn's disease [...] location documented in this encounter Care Teams Home [employer]ot Rep Relationship Specialty Start Date End Date Natty Mckinney MD [address] [place] [address] PCP - General 10/11/10 documented as of this encounter
--- OUTSIDE RECORDS SUMMARY | 2024-08-12 15:55 | XMS_ITS | Encounter Summary ---
Author Organization [facility] [place] [address] Care Team Providers Care Drill Press Hand Name Role Phone Natty Mckinney MD Primary Care Provider [phone] Encounter Details Date Type Department Care Team (Late st Contact Info) Description 10/11/2022 Telephone [place] [address] Natty Lawton MANAGER COMPETITIVE INTELLIGENCE [facility] [place] [address] Social History Tobacco Use Types Packs/Day Years [...] imaging second read (Through Arun Lyle our [facility] police department secretary) to Krishan's PCP. I tried to [...] and pelvis performed with intravenous contrast at [facility]. Oral contrast was also administered. Arterial [...] have questions please contact the health care trainer that requested your imaging first. documented in this encounter Plan of Treatment Not on file documented as of this encounter Visit Diagnoses Diagnosis Malignant neoplasm of prostate- Primary documented in this encounter Care Teams Drill Press Hand Relationship Specialty Start Date End Date Natty Mckinney MD [address] [place] [address] PCP - General 10/11/10 documented as of this encounter
--- OUTSIDE RECORDS SUMMARY | 2024-08-12 15:55 | XMS_ITS | Encounter Summary ---
Author Organization [facility] [place] [address] Care Team Providers Care Model Making Supervisor Name Role Phone Natty Mckinney MD Primary Care Provider [phone] Encounter Details Date Type Department Care Team (Late st Contact Info) Description 09/12/2023 Orders Only Radiation Oncology at [address] [phone] Monica Bonds PA [facility] DR [place]ATOLOG[place] [address] Malignant neoplasm of prostate Social History Tobacco [...] prostate documented in this encounter Care Teams Model Making Supervisor Relationship Specialty Start Date End Date Natty Mckinney MD [address] [place] [address] PCP - General 10/11/10 documented as of this encounter
--- OUTSIDE RECORDS SUMMARY | 2024-08-12 15:55 | XMS_ITS | Encounter Summary ---
Author Organization [facility] [place] [address] Care Team Providers Care Flight Operations Manager Name Role Phone Natty Mckinney MD Primary Care Provider [phone] Encounter Details Date Type Department Care Team (Late st Contact Info) Description 07/08/2021 Orders Only [place] [address] Natty Lawton APRN [facility] DR [place] [address] Malignant neoplasm of prostate (Primary Dx) Social [...] Primary documented in this encounter Care Teams Flight Operations Manager Relationship Specialty Start Date End Date Natty Mckinney MD [address] [place] [address] PCP - General 10/11/10 documented as of this encounter
--- OUTSIDE RECORDS SUMMARY | 2024-08-12 15:55 | XMS_ITS | Encounter Summary ---
Author Organization [facility] [place] [address] Care Team Providers Care Counter Top Maker Name Role Phone Natty Mckinney MD Primary Care Provider [phone] Encounter Details Date Type Department Care Team (Late st Contact Info) Description 12/04/2023 Telephone Radiation Oncology at [address] [address] Rona Hui Social History Tobacco [...] him a voicemail to call back at [phone]. documented in this encounter Plan of Treatment Not on file documented as of this encounter Visit Diagnoses Not on filedocumented in this encounter Care Teams Counter Top Maker Relationship Specialty Start Date End Date Natty Mckinney MD [address] [place] [address] PCP - General 10/11/10 documented as of this encounter
--- OUTSIDE RECORDS SUMMARY | 2024-08-12 15:55 | XMS_ITS | Encounter Summary ---
Author Organization [facility] Address [facility] [place] [address] Care Team Providers Care Production Control Coordinating Clerk Name Role Phone Natty Mckinney MD [...] on filedocumented in this encounter Care Teams Production Control Coordinating Clerk Relationship Specialty Start Date End Date Natty Mckinney MD [address] [place] [address] PCP - General 10/11/10 documented as of this encounter
--- OUTSIDE RECORDS SUMMARY | 2024-08-12 15:55 | XMS_ITS | Encounter Summary ---
Author Organization [facility] [place] [address] Care Team Providers Care Senior Compliance Officer Name Role Phone Natty Mckinney MD Primary Care Provider [phone] Encounter Details Date Type Department Care Team (Late st Contact Info) Description 04/06/2021 Telephone Radiation Oncology at [address] [phone] Shweta Hendrix REINSURANCE ANALYST [address] [place] [address] DR RADIATION ONCOLOGY [place], [place] [phone] Social History Tobacco Use Types Packs/Day Years [...] bone scan and the secondread done by [facility] radiology. She is [...] filedocumented in this encounter Care Teams Senior Compliance Officer Relationship Specialty Start Date End Date Natty Mckinney MD [address] [place] [address] PCP - General 10/11/10 documented as of this encounter
--- OUTSIDE RECORDS SUMMARY | 2024-08-12 15:55 | XMS_ITS | Clinical Summary ---
Author Organization [facility] Address [facility] [place] [address] Care Team Providers Care Pluck Separator Name Role Phone Natty Mckinney MD Primary Care Provider [phone] Allergies No known active allergies Medications Medication [...] Apply topically. 02/07/2021 Active naloxone 4 mg/actuation [place], Non-Aerosol by Nasal route. 02/07/2021 Active Ostomy [...] Hepatitis C Screening 1982 Lipid Screening 1982 Tetanus/Diphtheria/Pertussis Vaccines (1 - Tdap) 05/20 Zoster vaccine (1 of 2) 2014 Advance Directive 2019 Covid-19 Vaccine (1 - season) 2024 Influenza (Flu) vaccine (1 o f 1 - Influenza standard series) 07/20/2024 Advance Directives * Full Code (Latest Code Status on File) Date Activated Date Inactivated Comments 01/14/2020 10:43 AM 01/15/2020 4:34 AM Question Answer Comments Does patient have capacity to make decision: Yes * Full Code Date Activated Date Inactivated Comments 10/08/2019 8:44 AM 10/09/2019 4:32 AM Question Answer Comments Does patient have capacity to make decision: Yes Care Teams Pluck Separator Relationship Specialty Start Date End Date Natty Mckinney MD [address] [place] [address] PCP - General 10/11/10
--- OUTSIDE RECORDS SUMMARY | 2024-08-12 15:55 | XMS_ITS | Encounter Summary ---
Author Organization [facility] [place] [address] Care Team Providers Care Set Up Person Name Role Phone Natty Mckinney MD Primary Care Provider [phone] Encounter Details Date Type Department Care Team (Latest Contact Info) Description 10/10/2022 12:20 PM EST Ancillary Procedure Radiology Library at [facility] [place] [place] [address] Natty Lawton APRN [facility] [address] Malignant neoplasm of prostate Social History Tobacco [...] who have questions please contact the health home care nurse that requested your imaging first. ? Electronically signed by: King Victoria MD, [facility] ([phone]), at 10/11/2022 2:55 PM Narrative 10/11/2022 2:55 [...] Resulting Agency Comment Unexpected Finding Natty Lawton DIESEL INSTRUCTOR IMG OUTSIDE INTERPRE TATION ORDERABLES documented in this encounter Visit Diagnoses Diagnosis Malignant neoplasm of prostate documented in this encounter Care Teams Set Up Person Relationship Specialty Start Date End Date Natty Mckinney MD [address] [place] [address] PCP - General 10/11/10 documented as of this encounter
--- OUTSIDE RECORDS SUMMARY | 2024-08-12 15:55 | XMS_ITS | Encounter Summary ---
Author Organization [facility] [place] [address] Care Team Providers Care Heritage Consultant Name Role Phone Natty Mckinney MD Primary Care Provider [phone] Encounter Details Date Type Department Care Team (Late st Contact Info) Description 03/28/2022 Telephone Radiation Oncology at [address] [address] Rona Hui Social History Tobacco [...] him to return a call to the [facility] office to confirm if he has gone for recent lab work. Labs are required for his 6M FUV with Natty Lawton. documented in this encounter Plan of Treatment Not on file documented as of this encounter Visit Diagnoses Not on filedocumented in this encounter Care Teams Heritage Consultant Relationship Specialty Start Date End Date Natty Mckinney MD [address] [place] [address] PCP - General 10/11/10 documented as of this encounter
--- OUTSIDE RECORDS SUMMARY | 2024-08-12 15:55 | XMS_ITS | Encounter Summary ---
Author Organization [facility] Address [facility] [place] [address] Care Team Providers Care Food And Beverage Assistant Manager Name Role Phone Natty Mckinney MD Primary Care Provider [phone] Encounter Details Date Type Department Care Team (Latest Contact Info) Description 01/17/2022 9:00 AM EST Ext Surgery or Single Event [facility] [address] [facility] [address] Cornelius Sandoval MD [facility] [place] [address] Dyspnea, unspecified type Social History Tobacco Use [...] documented in this encounter Care Teams Food And Beverage Assistant Manager Relationship Specialty Start Date End Date Natty Mckinney MD [address] [place] [address] PCP - General 10/11/10 documented as of this encounter
--- OUTSIDE RECORDS SUMMARY | 2024-08-12 15:55 | XMS_ITS | Encounter Summary ---
Author Organization [facility] [place] [address] Care Team Providers Care Shoemaker Apprentice Name Role Phone Natty Mckinney MD Primary Care Provider [phone] Encounter Details Date Type Department Care Team (Late st Contact Info) Description 09/22/2021 11:00 AM EDT Office Visit Radiation Oncology at [address] [address] Natty Lawton, EDUCATION FACULTY MEMBER [facility] [place] [address] Malignant neoplasm of prostate (Primary Dx) Social [...] from the original note were not included. [facility] [place] [address] Phone: RADIATION ONCOLOGY FOLLOW UP NOTE Date [...] Start Date End Date 03/10/20 03/19/20 ?? DEDICATED REGIONAL DRIVER TREATMENT MANCILLA: ?? Interim HPI: 04/07/21 second read bone scan /Shweta Hendrix notes Call to Dr Lopes patient's PCP to review the results of patient's recent bone scan and the secondread done by [facility] [place]. He is appreciative [...] THREE TIMES A DAY naloxone 4 mg/actuation [place], Non-Aerosol by Nasal route. nicotine (NICODERM CQ) [...] OTHER 10/08/2019 CT Guided Biopsy Other 10/08/2019 [facility] RAD CAT SCAN Family History Problem [...] the radiation therapy/prostate cancer Natty Lawton MSN, EDUCATION FACULTY MEMBER, [place] HARVE[employer]ING SUPERVISOR-C Nurse Practitioner Radiation Oncology documented in this encounter Plan of Treatment Not on file documented as of this encounter Visit Diagnoses Diagnosis Malignant neoplasm of prostate- Primary documented in this encounter Care Teams Shoemaker Apprentice Relationship Specialty Start Date End Date Natty Mckinney MD [address] [place] [address] PCP - General 10/11/10 documented as of this encounter
--- OUTSIDE RECORDS SUMMARY | 2024-08-12 15:55 | XMS_ITS | Encounter Summary ---
Author Organization [place] [id number] Care Team Providers Care Social Science Professor Name Role Phone Natty Mckinney MD Primary Care Provider [phone] Reason for Referral * Consultation (Routine) - Closed Specialty Diagnoses / Procedures Referred By Contac t Referred To Contact Gastroenterology Diagnoses Crohn's disease with complication, unspecified gastrointestinal tract location Abdominal pain, unspecified abdominal location Weight loss, unintentional IBD- crohns disease/ abd pain/ wt loss Natty Mckinney MD [address] [place] [address] [facility] Gastro [address] [place] [phone] Referral ID Status Reason Start Date Expiration Date V isits Requested Visits Authorized [id number] Closed Consult, Test & Treat PCP Updated and/or Approved 01/16/2023 01/16/2024 6 6 Encounter Details Date Type Department Care Team (Latest Contact Info) Description 01/16/2023 Transcribe Orders eDH Incoming Referrals [phone] Natty Mckinney MD [address] [place], [place] [id number] Crohn's disease with complication, unspecified gastrointestinal tract [...] weight documented in this encounter Care Teams Social Science Professor Relationship Specialty Start Date End Date Natty Mckinney MD [address] [place] [address] PCP - General 10/11/10 documented as of this encounter
--- OUTSIDE RECORDS SUMMARY | 2024-08-12 15:55 | XMS_ITS | Encounter Summary ---
Author Organization [facility] Address [facility] [place] [address] Care Team Providers Care Microbiology Technician Name Role Phone Natty Mckinney MD Primary Care Provider [phone] Reason for Visit * Reason Comments Establish Care B OA of CMC joint * Consultation (Routine) - Closed Specialty Diagnoses / Procedures Referred By Contac t Referred To Contact Orthopaedics Diagnoses Osteoarthritis of carpometacarpal (CMC) joint of thumb, unspecified laterality, unspecified osteoarthritis type Ulnar abutment syndrome of both wrists Ector Irizarry MD [address] [place] [address] Willie Rivas MD [facility] [place] [address] Referral ID Status Reason Start Date Expiration Date V isits Requested Visits Authorized [id number] Closed Consult, Test & Treat PCP Updated and/or Approved 02/08/2022 02/08/2023 6 6 Encounter Details Date Type Department Care Team (Latest Contact Info) Description 03/22/2022 1:15 PM EDT Office [place] [address] Willie Rivas MD [facility] ORTHOPAEDIC SURGERY [place], [place] [phone] Primary osteoarthritis of both first carpometacarpal joints [...] pack of cigarettes by his surgeon at [facility]. Examination reveals a pleasant alert male in [...] most recent hand x-rays were reviewed from [facility] and were done on10/07/2020. These show bilateral [...] basal joint fluoroscopically guided steroid injections in [place] should the patient decide to move forth [...] hand documented in this encounter Care Teams Microbiology Technician Relationship Specialty Start Date End Date Natty Mckinney MD [address] [place] [address] PCP - General 10/11/10 documented as of this encounter
--- OUTSIDE RECORDS SUMMARY | 2024-08-12 15:55 | XMS_ITS | Encounter Summary ---
Author Organization [facility] [place] [address] Care Team Providers Care Door Operator Name Role Phone Natty Mckinney MD Primary Care Provider [phone] Encounter Details Date Type Department Care Team (Late st Contact Info) Description 09/22/2022 Ancillary Procedure Radiology Library at [facility] [place] [phone] Natty Mckinney MD [address] [place], [place] [address] Social History Tobacco Use Types Packs/Day Years [...] & Pelvis (09/22/2022 12:00 AM EDT) Narrative [facility] - 10/10/2022 11:23 AM EST This exam is auto-finalizing. It's purpose is for storage only. Natty Mckinney MD IMG FILM LIBRARY ORD ERABLES [facility] [place], [place] documented in this encounter Visit Diagnoses Not on filedocumented in this encounter Care Teams Door Operator Relationship Specialty Start Date End Date Natty Mckinney MD [address] [place] [address] PCP - General 10/11/10 documented as of this encounter
--- OUTSIDE RECORDS SUMMARY | 2024-08-12 15:56 | XMS_ITS | Encounter Summary ---
Author Organization [facility] [place] [address] Care Team Providers Care Gas Pumper Name Role Phone Natty Mckinney MD Primary Care Provider [phone] Reason for Visit * Consultation (Routine) - Closed Specialty Diagnoses / Procedures Referred By Claire guerrero Referred To Contact Radiation Oncology Diagnoses Malignant neoplasm of prostate Procedures Simulation for Radiation Therapy Planning Santiago Arroyo MD [address] [place] [address] [place] [address] [facility] Rad Onc Office [address] [place] [phone] Referral ID Status Reason Start Date Expiration Date V isits Requested Visits Authorized [id number] Closed Consult, Test & Treat 12/22/2019 12/21/2020 1 1 Encounter Details Date Type Department Care Team (Late st Contact Info) Description 01/28/2020 2:30 PM EDT Ancillary Appointment Radiation Oncology at [address] [address] Santiago Arroyo MD [address] [place] [address] [place] [address] Social History Tobacco Use Types [...] treatment time and check in with the Costumed Character ?? You will have your vital signs [...] Note for External Beam Radiation Treatment Planning [facility] Mark [place] is a 54 [...] of any short term side effects or supervisor long goods complications of therapy. I anticipate his SBRT [...] filedocumented in this encounter Care Teams Gas Pumper Relationship Specialty Start Date End Date Natty Mckinney MD [address] [place] [address] PCP - General 10/11/10 documented as of this encounter
--- OUTSIDE RECORDS SUMMARY | 2024-08-12 15:56 | XMS_ITS | Encounter Summary ---
Author Organization [facility] [place] [address] Care Team Providers Care Jack Of All Trades Name Role Phone Natty Mckinney MD Primary Care Provider [phone] Encounter Details Date Type Department Care Team (Late st Contact Info) Description 03/14/2020 Telephone Radiation Oncology at [address] [address] Arun Lyle Social History Tobacco [...] filedocumented in this encounter Care Teams Jack Of All Trades Relationship Specialty Start Date End Date Natty Mckinney MD [address] [place] [address] PCP - General 10/11/10 documented as of this encounter
--- OUTSIDE RECORDS SUMMARY | 2024-08-12 15:56 | XMS_ITS | Encounter Summary ---
Author Organization [facility] [place] [address] Care Team Providers Care Floor Cashier Name Role Phone Natty Mckinney MD Primary Care Provider [phone] Reason for Visit * - Closed Specialty Diagnoses / Procedures Referred By Contac t Referred To Contact Procedures Film Library- Storage Only nuclear medicine Natty Mckinney MD [address] [place] [address] Referral ID Status Reason Start Date Expiration Date Visits Re quested Visits Authorized [id number] Closed 03/31/2021 03/31/2022 1 1 Encounter Details Date Type Department Care Team (Late st Contact Info) Description 03/30/2021 Ancillary Procedure Radiology Library at [facility] [place] [address] Natty Mckinney MD [address] [place], [place] [address] Social History Tobacco Use Types Packs/Day Years [...] nuclear medicine (03/30/2021 12:00 AM EDT) Narrative [facility] - 03/31/2021 9:16 AM EDT This exam is auto-finalizing. It's purpose is for storage only. Natty Mckinney MD IMG FILM LIBRARY ORD ERABLES [place], [place] documented in this encounter Visit Diagnoses Not on filedocumented in this encounter Care Teams Floor Cashier Relationship Specialty Start Date End Date Natty Mckinney MD [address] [place] [address] PCP - General 10/11/10 documented as of this encounter
--- OUTSIDE RECORDS SUMMARY | 2024-08-12 15:56 | XMS_ITS | Encounter Summary ---
Author Organization [facility] [place] [address] Care Team Providers Care Course Developer Name Role Phone Natty Mckinney MD Primary Care Provider [phone] Encounter Details Date Type Department Care Team (Latest Contact Info) Description 04/06/2021 1:35 PM EDT Ancillary Procedure Radiology Library at [facility] [place] [phone] Shweta Hendrix, [address] RADIATION ONCOLOGY [place], [place] [phone] Malignant neoplasm of prostate Social History Tobacco [...] who have questions please contact the health rn homecare that requested your imaging first. ? Electronically signed by: Loyd Hayden MD, [facility] ([phone]), at 04/06/2021 4:58 PM Narrative 04/06/2021 4:58 PM EDT EXAMINATION: REQUEST [...] patients who have questions please contactthe health rn homecare that requested your imaging first. Electronically signed by: Loyd Hayden MD, [facility]([phone]), at 04/06/2021 4:58 PM Shweta Hendrix APRN IMG OUTSIDE INTERPRE TATION ORDERABLES documented in this encounter Visit Diagnoses Diagnosis Malignant neoplasm of prostate documented in this encounter Care Teams Course Developer Relationship Specialty Start Date End Date Natty Mckinney MD [address] [place] [address] PCP - General 10/11/10 documented as of this encounter
--- OUTSIDE RECORDS SUMMARY | 2024-08-12 15:56 | XMS_ITS | Encounter Summary ---
Author Organization [facility] [place] [address] Care Team Providers Care Jai Alai Player Name Role Phone Natty Mckinney MD Primary Care Provider [phone] Encounter Details Date Type Department Care Team (Late st Contact Info) Description 03/15/2020 8:30 AM EDT Procedure visit Radiation Oncology at [address] [phone] Santiago Arroyo MD [address] [place] [address] RADIATION ONCOLOGY [place], [place] [phone] Malignant neoplasm of prostate Social History Tobacco [...] prostate documented in this encounter Care Teams Jai Alai Player Relationship Specialty Start Date End Date Natty Mckinney MD [address] [place] [address] PCP - General 10/11/10 documented as of this encounter
--- OUTSIDE RECORDS SUMMARY | 2024-08-12 15:56 | XMS_ITS | Encounter Summary ---
Author Organization [facility] [place] [address] Care Team Providers Care Cross Country Truck Driver Name Role Phone Natty Mckinney MD Primary Care Provider [phone] Encounter Details Date Type Department Care Team (Late st Contact Info) Description 05/06/2020 Telephone Radiation Oncology at [address] [phone] Tamara Boone RN Social History [...] AM EDT Radiation Oncology Nurse Telephone Note [facility] [place], [place] ----- Message from Santiago Arroyo MD [...] on filedocumented in this encounter Care Teams Cross Country Truck Driver Relationship Specialty Start Date End Date Natty Mckinney MD [address] [place] [address] PCP - General 10/11/10 documented as of this encounter
--- OUTSIDE RECORDS SUMMARY | 2024-08-12 15:56 | XMS_ITS | Encounter Summary ---
Author Organization [facility] [place] [address] Care Team Providers Care Psychologist Private Practice Name Role Phone Natty Mckinney MD Primary Care Provider [phone] Encounter Details Date Type Department Care Team (Late st Contact Info) Description 2020 11:30 AM EDT TH Visit (TeleHealth) Radiation Oncology at [address] [phone] Santiago Arroyo MD [address] [place] [address] RADIATION ONCOLOGY [place], [place] [address] Malignant neoplasm of prostate Social History Tobacco [...] MS Radiation Oncology ?? [facility] [phone] (paging taping machine operator) Pager #[phone] ?? PATIENT IDENTIFICATION ? Name Krishan Monte [...] Start Date End Date 03/10/20 03/19/20 ?? EMERGENCY SERVICES DIRECTOR TREATMENT MANCILLA: ?? INTERVAL HISTORY Subjective: General [...] prostate documented in this encounter Care Teams Psychologist Private Practice Relationship Specialty Start Date End Date Natty Mckinney MD [address] [place] [address] PCP - General 10/11/10 documented as of this encounter
--- OUTSIDE RECORDS SUMMARY | 2024-08-12 15:56 | XMS_ITS | Encounter Summary ---
Author Organization [facility] [place] [address] Care Team Providers Care Tooth Grinder Name Role Phone Natty Mckinney MD Primary Care Provider [phone] Encounter Details Date Type Department Care Team (Late st Contact Info) Description 12/22/2019 [place] [address] Norman De Oliveira, [facility] [place] [address] Social History Tobacco Use Types Packs/Day Years [...] on filedocumented in this encounter Care Teams Tooth Grinder Relationship Specialty Start Date End Date Natty Mckinney MD [address] [place] [address] PCP - General 10/11/10 documented as of this encounter
--- OUTSIDE RECORDS SUMMARY | 2024-08-12 15:56 | XMS_ITS | Encounter Summary ---
Author Organization [facility] [place] [address] Care Team Providers Care Dry Kiln Worker Name Role Phone Natty Mckinney MD Primary Care Provider [phone] Encounter Details Date Type Department Care Team (Late st Contact Info) Description 05/06/2020 Telephone Radiation Oncology at [address] [phone] Arun Lyle Social History Tobacco [...] on filedocumented in this encounter Care Teams Dry Kiln Worker Relationship Specialty Start Date End Date Natty Mckinney MD [address] [place] [address] PCP - General 10/11/10 documented as of this encounter
--- OUTSIDE RECORDS SUMMARY | 2024-08-12 15:56 | XMS_ITS | Encounter Summary ---
Author Organization [facility] [place] [address] Care Team Providers Care Ethylene Plant Operator Name Role Phone Natty Mckinney MD Primary Care Provider [phone] Encounter Details Date Type Department Care Team (Late st Contact Info) Description 05/13/2020 8:00 AM EDT TH Visit (TeleHealth) Radiation Oncology at [address] [phone] Santiago Arroyo MD [address] [place] [address] RADIATION ONCOLOGY [place], [place] [id number] Malignant neoplasm of prostate Social History Tobacco [...] Santiago Arroyo MD, MS Radiation Oncology ?? [facility] [phone] (paging wash oil pump operator helper) Pager #[phone] ?? PATIENT IDENTIFICATION ? Name Krishan Monte [...] Start Date End Date 03/10/20 03/19/20 ?? SMT OPERATOR TREATMENT MANCILLA: ?? INTERVAL HISTORY Subjective: [...] prostate documented in this encounter Care Teams Ethylene Plant Operator Relationship Specialty Start Date End Date Natty Mckinney MD [address] [place] [address] PCP - General 10/11/10 documented as of this encounter
--- OUTSIDE RECORDS SUMMARY | 2024-08-12 15:56 | XMS_ITS | Encounter Summary ---
Author Organization [facility] [place] [address] Care Team Providers Care Child Development Consultant Name Role Phone Natty Mckinney MD Primary Care Provider [phone] Encounter Details Date Type Department Care Team (Late st Contact Info) Description 01/02/2020 Telephone Radiation Oncology at [address] [phone] Arun Lyle Social History Tobacco [...] on filedocumented in this encounter Care Teams Child Development Consultant Relationship Specialty Start Date End Date Natty Mckinney MD [address] [place] [address] PCP - General 10/11/10 documented as of this encounter
--- OUTSIDE RECORDS SUMMARY | 2024-08-12 15:56 | XMS_ITS | Encounter Summary ---
Author Organization [facility] [place] [address] Care Team Providers Care Frame Expander Name Role Phone Natty Mckinney MD Primary Care Provider [phone] Encounter Details Date Type Department Care Team (Late st Contact Info) Description 01/06/2020 Telephone Radiation Oncology at [address] [phone] Arun Lyle Social History [...] on filedocumented in this encounter Care Teams Frame Expander Relationship Specialty Start Date End Date Natty Mckinney MD [address] [place] [address] PCP - General 10/11/10 documented as of this encounter
--- OUTSIDE RECORDS SUMMARY | 2024-08-12 15:56 | XMS_ITS | Encounter Summary ---
Author Organization [facility] [place] [address] Care Team Providers Care Web Production Manager Name Role Phone Natty Mckinney MD Primary Care Provider [phone] Encounter Details Date Type Department Care Team (Late st Contact Info) Description 04/08/2020 Notes Only Radiation Oncology at [address] [phone] Santiago Arroyo MD [address] [place] [address] DR RADIATION ONCOLOGY [place], [place] [id number] Social History Tobacco Use Types Packs/Day Years [...] Summary Santiago Arroyo MD, MS Radiation Oncology [facility] [phone] (paging can filling machine operator) Pager #[phone] PATIENT IDENTIFICATION ?? Name Krishan Monte Date [...] Start Date End Date 03/10/20 03/19/20 ?? FIELD ARTILLERY OPERATIONS MAN TREATMENT FIERRO: SPECIAL TECHNICAL CONSIDERATIONS: The patient [...] FOLLOWUP: Follow-up visit with Radiation Oncology in [facility] is scheduled for 04/29/20 for clinical symptom check; he has received instructions to call this office or seek the help of the local emergency room if any further problems should arise prior to followup. documented in this encounter Plan of Treatment Not on file documented as of this encounter Visit Diagnoses Not on filedocumented in this encounter Care Teams Web Production Manager Relationship Specialty Start Date End Date Natty Mckinney MD [address] [place] [address] PCP - General 10/11/10 documented as of this encounter
--- OUTSIDE RECORDS SUMMARY | 2024-08-12 15:56 | XMS_ITS | Encounter Summary ---
Author Organization [facility] [place] [address] Care Team Providers Care Agriculture Extension Specialist Name Role Phone Natty Mckinney MD Primary Care Provider [phone] Encounter Details Date Type Department Care Team (Late st Contact Info) Description 05/19/2020 Telephone Radiation Oncology at [address] [phone] Arun Lyle Social History Tobacco [...] on filedocumented in this encounter Care Teams Agriculture Extension Specialist Relationship Specialty Start Date End Date Natty Mckinney MD [address] [place] [address] PCP - General 10/11/10 documented as of this encounter
--- OUTSIDE RECORDS SUMMARY | 2024-08-12 15:56 | XMS_ITS | Encounter Summary ---
Author Organization [facility] [place] [address] Care Team Providers Care Fire Prevention Captain Name Role Phone Natty Mckinney MD Primary Care Provider [phone] Encounter Details Date Type Department Care Team (Late st Contact Info) Description 05/13/2020 Telephone Radiation Oncology at [address] [phone] Arun Lyle Social History Tobacco [...] on filedocumented in this encounter Care Teams Fire Prevention Captain Relationship Specialty Start Date End Date Natty Mckinney MD [address] [place] [address] PCP - General 10/11/10 documented as of this encounter
--- OUTSIDE RECORDS SUMMARY | 2024-08-12 15:56 | XMS_ITS | Encounter Summary ---
Author Organization [facility] [place] [address] Care Team Providers Care Senior Policy Analyst Name Role Phone Natty Mckinney MD Primary Care Provider [phone] Encounter Details Date Type Department Care Team (Late st Contact Info) Description 03/07/2020 Telephone Hematology/Oncology at [address] [phone] Miriam Pitts Social History Tobacco [...] filedocumented in this encounter Care Teams Senior Policy Analyst Relationship Specialty Start Date End Date Natty Mckinney MD [address] [place] [address] PCP - General 10/11/10 documented as of this encounter
--- OUTSIDE RECORDS SUMMARY | 2024-08-12 15:56 | XMS_ITS | Encounter Summary ---
Author Organization [facility] [place] [address] Care Team Providers Care Side Laster Tack Name Role Phone Natty Mckinney MD Primary Care Provider [phone] Encounter Details Date Type Department Care Team (Late st Contact Info) Description 02/03/2021 Ancillary Procedure Radiology Library [place] [facility] [place] [phone] Natty Lawton APRN [facility] [place] [address] Social History Tobacco Use Types Packs/Day Years [...] & Pelvis (02/03/2021 12:00 AM EDT) Narrative [facility] - 10/11/2022 1:58 PM EST This exam is auto-finalizing. It's purpose is for storage only. Natty Lawton APRN [facility] FILM LIBRARY ORD ERABLES DH [place], [place] documented in this encounter Visit Diagnoses Not on filedocumented in this encounter Care Teams Side Laster Tack Relationship Specialty Start Date End Date Natty Mckinney MD [address] [place] [address] PCP - General 10/11/10 documented as of this encounter
--- OUTSIDE RECORDS SUMMARY | 2024-08-12 15:56 | XMS_ITS | Encounter Summary ---
Author Organization [facility] [place] [address] Care Team Providers Care Exchange Mechanic Name Role Phone Natty Mckinney MD Primary Care Provider [phone] Encounter Details Date Type Department Care Team (Late st Contact Info) Description 05/11/2020 Telephone Radiation Oncology at [address] [phone] Melvi Maddox RN Social History [...] 1:53 PM EDT Background: Received voicemail from [facility] in [facility] stating that they do not currently [...] prostate documented in this encounter Care Teams Exchange Mechanic Relationship Specialty Start Date End Date Natty Mckinney MD [address] [place] [address] PCP - General 10/11/10 documented as of this encounter
--- OUTSIDE RECORDS SUMMARY | 2024-08-12 15:56 | XMS_ITS | Encounter Summary ---
Author Organization [facility] [place] [address] Care Team Providers Care Grain Operator Name Role Phone Natty Mckinney MD Primary Care Provider [phone] Encounter Details Date Type Department Care Team (Late st Contact Info) Description 01/02/2020 Orders Only Radiation Oncology at [address] [phone] Santiago Arroyo MD [address] [place] [address] DR RADIATION ONCOLOGY [place], [place] [id number] Malignant neoplasm of prostate Social History Tobacco [...] prostate documented in this encounter Care Teams Grain Operator Relationship Specialty Start Date End Date Natty Mckinney MD [address] [place], [place] [address] PCP - General 10/11/10 documented as of this encounter
--- OUTSIDE RECORDS SUMMARY | 2024-08-12 15:56 | XMS_ITS | Encounter Summary ---
Author Organization [facility] [place] [address] Care Team Providers Care Care Support Representative Name Role Phone Natty Mckinney MD Primary Care Provider [phone] Encounter Details Date Type Department Care Team (Late st Contact Info) Description 04/29/2020 Telephone Radiation Oncology at [address] [phone] Arun Lyle Social History Tobacco [...] filedocumented in this encounter Care Teams Care Support Representative Relationship Specialty Start Date End Date Natty Mckinney MD [address] [place] [address] PCP - General 10/11/10 documented as of this encounter
--- OUTSIDE RECORDS SUMMARY | 2024-08-12 15:56 | XMS_ITS | Encounter Summary ---
Author Organization [facility] Address [facility] [place] [address] Care Team Providers Care Supervisor Ornamental Ironworking Name Role Phone Natty Mckinney MD Primary Care Provider [phone] Encounter Details Date Type Department Care Team (Late st Contact Info) Description 01/28/2020 Notes Only Radiation Oncology at [address] [phone] Nancy Sandoval MSW OFFICE OF [...] in the area and his daughter in [place] as his primary supports. Living Situation/Daily Activities/Transportation: [...] at this time. Plan: Informed pt of PIPELINES MANAGER availability and will follow for support and resources. documented in this encounter Plan of Treatment Not on file documented as of this encounter Visit Diagnoses Not on filedocumented in this encounter Care Teams Supervisor Ornamental Ironworking Relationship Specialty Start Date End Date Natty Mckinney MD [address] [place] [address] PCP - General 10/11/10 documented as of this encounter
--- OUTSIDE RECORDS SUMMARY | 2024-08-12 15:56 | XMS_ITS | Encounter Summary ---
Author Organization [facility] [place] [address] Care Team Providers Care Agricultural Commodities Inspector Name Role Phone Natty Mckinney MD Primary Care Provider [phone] Encounter Details Date Type Department Care Team (Latest Contact Info) Description 03/19/2020 11:15 AM EDT Procedure visit Radiation Oncology at [address] [phone] Martínez Johnson MD [facility] [place] [address] Malignant neoplasm of prostate Social History Tobacco [...] upon arrival to clinic by Edwige Vargas [employer] HELICOPTER Resp 16 Wt 70.7 kg (155 lb [...] prostate documented in this encounter Care Teams Agricultural Commodities Inspector Relationship Specialty Start Date End Date Natty Mckinney MD [address] [place] [address] PCP - General 10/11/10 documented as of this encounter
--- OUTSIDE RECORDS SUMMARY | 2024-08-12 15:56 | XMS_ITS | Encounter Summary ---
Author Organization [facility] Address [facility] [place] [address] Care Team Providers Care Poultry Buyer Name Role Phone Natty Mckinney MD Primary Care Provider [phone] Reason for Visit * Diagnostic Test (Routine) - Closed Specialty Diagnoses / Procedures Referred By Claire guerrero Referred To Contact Radiology Diagnoses Malignant neoplasm of prostate Procedures CT Guided Fiducial Marker CT Guided Biopsy Other Santiago Arroyo MD [address] [place] [address] [place] [address] [facility] [place] [address] Referral ID Status Reason Start Date Expiration Date V isits Requested Visits Authorized [id number] Closed Specialty Service Requested 12/22/2019 06/21/2021 1 1 Encounter Details Date Type Department Care Team (Latest Contact Info) Description 01/14/2020 9:34 AM EST - 01/14/2020 11:59 PM [facility] [place] [address] Santiago Arroyo MD [address] [place] [address] [place] [address] Malignant neoplasm of prostate Discharge [...] Bran RN - 01/14/2020 12:43 PM EST [facility] Vascular and Interventional Radiology Discharge Instructions [...] is during regular office hours, please call [phone]. If it is after regular office hours, or on weekends or holidays, please call [phone] and ask to speak to the Operations Specialist sales administration manager for Interventional Radiology. You have received medication [...] (home) Telephone Information: PCP Natty Mckinney MD [phone] Date/Time of call: January 15, 2020/10:24 AM [...] of : 1965 AGE: 54 y.o. Address: [address] [address] (home) Mobile: Telephone Information: Referring Provider: Santiago Arroyo REASON FOR VISIT: Order Questions Answers Where will study be performed? [facility] Radiology [120] Laterality Bilateral Is [...] Questions Answers Where will study be performed? [facility] Radiology [120] Laterality Bilateral Is [...] OTHER 10/08/2019 CT Guided Biopsy Other 10/08/2019 [facility] RAD CAT SCAN Medications: Current [...] file Gets together: Not on file Attends voodoo service: Not on file Active member of [...] of position, a PointCoil was deployed. ?? Enochs removed, and hemostasis obtained with manual compression. [...] mg documented in this encounter Care Teams Poultry Buyer Relationship Specialty Start Date End Date Natty Mckinney MD [address] [place] [address] PCP - General 10/11/10 documented as of this encounter
--- OUTSIDE RECORDS SUMMARY | 2024-08-12 15:56 | XMS_ITS | Encounter Summary ---
Author Organization [facility] [place] [address] Care Team Providers Care Machine Clerical Verifier Name Role Phone Natty Mckinney MD Primary Care Provider [phone] Encounter Details Date Type Department Care Team (Late st Contact Info) Description 05/11/2020 Telephone Radiation Oncology at [address] [phone] Tamara Boone RN Social History [...] PM EDT Radiation Oncology Nurse Telephone Note [facility] [place], [place] Telephone call to patient to inquire [...] on filedocumented in this encounter Care Teams Machine Clerical Verifier Relationship Specialty Start Date End Date Natty Mckinney MD [address] [place] [address] PCP - General 10/11/10 documented as of this encounter
--- OUTSIDE RECORDS SUMMARY | 2024-08-12 15:56 | XMS_ITS | Encounter Summary ---
Author Organization [facility] [place] [address] Care Team Providers Care Tow Car Driver Name Role Phone Natty Mckinney MD Primary Care Provider [phone] Encounter Details Date Type Department Care Team (Late st Contact Info) Description 05/06/2020 8:00 AM EDT TH Visit (TeleHealth) Radiation Oncology at [address] [phone] Santiago Arroyo MD [address] [place] [address] RADIATION ONCOLOGY [place], [place] [id number] Malignant neoplasm of prostate Social History Tobacco [...] prostate documented in this encounter Care Teams Tow Car Driver Relationship Specialty Start Date End Date Natty Mckinney MD [address] [place] [address] PCP - General 10/11/10 documented as of this encounter
--- OUTSIDE RECORDS SUMMARY | 2024-08-12 15:56 | XMS_ITS | Encounter Summary ---
Author Organization [facility] Address [facility] [place] [address] Care Team Providers Care Building Associate Name Role Phone Natty Mckinney MD Primary Care Provider [phone] Reason for Referral * Consultation (Routine) - Closed Specialty Diagnoses / Procedures Referred By Claire guerrero Referred To Contact Radiation Oncology Diagnoses Malignant neoplasm of prostate Procedures Simulation for Radiation Therapy Planning Santiago Arroyo MD [address] [place] [address] [place] [address] [facility] Rad Onc Office [address] [place] [phone] Referral ID Status Reason Start Date Expiration Date V isits Requested Visits Authorized [id number] Closed Consult, Test & Treat 12/22/2019 12/21/2020 1 1 Reason for Visit * Consultation (Routine) - Closed Specialty Diagnoses / Procedures Referred By Claire guerrero Referred To Contact Radiation Oncology Diagnoses Malignant neoplasm of prostate Daniele Seals MD [facility] [place] [address] [facility] Rad Onc Treatment [address] [place] [phone] Referral ID Status Reason Start Date Expiration Date V isits Requested Visits Authorized [id number] Closed Consult, Test & Treat 12/03/2019 12/02/2020 1 1 Encounter Details Date Type Department Care Team (Late st Contact Info) Description 12/22/2019 9:00 AM EST Office Visit Radiation Oncology at [address] [place] [address] Santiago Arroyo MD [address] [place] [address] DR RADIATION ONCOLOGY [place], [place] [id number] Malignant neoplasm of prostate Social History Tobacco [...] your prostate cancer looks under the microscope). Stites scores for cancer range from 6-10, and [...] refer you to the Surveillance Clinic at [facility], which is run by our [...] is for you to visit radiology at [facility] again, where they could place [...] a prostate MRI which we do at [facility], that allows us to better [...] within 4-6 weeks of completion radiation. 6. Promotions Intern Complications: These are more worrisome and are [...] for urination). There may be a slow, buttermaker helper decrease in your sexual function as well, [...] do not hesitate to call me at [phone] with any other questions or concerns you have. IfI am not here, one of our radiation oncology nurses can assist you or help you get in touch with me. A Radiation Oncology doctor is also pay station department manager after our normal hours and on weekends for urgent questions or concerns related to radiation treatments that can not wait until normal business hours. To reach the on-call doctor after-hours, just call and have the flexo folder gluer operator page the Radiation Oncologist pay station department manager. And, as always, if you experience any [...] injury 7. Uncontrollable bleeding Santiago Barbosa MD Correction Officer Supervisorcasing grader Radiation Oncology [facility] documented in this encounter Progress Notes * Santiago Arroyo MD - 12/22/2019 9:00 AM EST Images from the original note were not included. Radiation Oncology Prostate Cancer Consult Note Santiago Arroyo MD, MS [facility] [phone] PATIENT IDENTIFICATION: PATIENT NAME: Krishan Monte DATE OF : 1965 REFERRING PROVIDER: Daniele Seals MD [facility] [place] [address] REASON FOR CONSULTATION : Cancer Staging Malignant [...] Release(E.C.) daily. 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 In the buttermaker helper, I explained there is an approximately 2% [...] candidate for any currently open trials at [facility] given his surgically absence rectum. [...] anticipate 5 fractions to be delivered in [facility]. 4. Fiducial maker placement, CT simulation to be scheduled TIME ATTESTATION: At least 45 minutes of this 60 minute visit was spent with the patient [id number] reviewing his interval medical history and answering [...] disability since 2002 . Was a machinist general prior. See [facility] social assessment information entered. Support Systems: Lives alone. Accompanied by friend, Nancy Barriers to treatment: none Referrals/Interventions: scrap yard worker on day per routine. RADIATION SPECIFIC [...] prostate documented in this encounter Care Teams Building Associate Relationship Specialty Start Date End Date Natty Mckinney MD [address] [place] [address] PCP - General 10/11/10 documented as of this encounter
--- OUTSIDE RECORDS SUMMARY | 2024-08-12 15:56 | XMS_ITS | Encounter Summary ---
Author Organization [facility] [place] [address] Care Team Providers Care Primer Charger Name Role Phone Natty Mckinney MD Primary Care Provider [phone] Encounter Details Date Type Department Care Team (Late st Contact Info) Description 03/17/2020 2:15 PM EDT Procedure visit Radiation Oncology at [address] [phone] Santiago Arroyo MD [address] [place] [address] RADIATION ONCOLOGY [place], [place] [id number] Malignant neoplasm of prostate Social History Tobacco [...] prostate documented in this encounter Care Teams Primer Charger Relationship Specialty Start Date End Date Natty Mckinney MD [address] [place] [address] PCP - General 10/11/10 documented as of this encounter
--- OUTSIDE RECORDS SUMMARY | 2024-08-12 15:56 | XMS_ITS | Encounter Summary ---
Author Organization [facility] [place] [address] Care Team Providers Care Metal Checker Name Role Phone Natty Mckinney MD Primary Care Provider [phone] Encounter Details Date Type Department Care Team (Late st Contact Info) Description 10/07/2020 Ancillary Procedure Radiology Library at [facility] [place] [place] [address] Natty Mckinney MD [address] [place], [place] [id number] Social History Tobacco Use Types Packs/Day Years [...] DX Hand (10/07/2020 12:00 AM EST) Narrative RAD - 01/31/2022 11:11 AM EDT This exam is auto-finalizing. It's purpose is for storage only. Natty Mckinney MD IMG FILM LIBRARY ORD ERABLES [place], [place] documented in this encounter Visit Diagnoses Not on filedocumented in this encounter Care Teams Metal Checker Relationship Specialty Start Date End Date Natty Mckinney MD [address] [place] [address] PCP - General 10/11/10 documented as of this encounter
--- OUTSIDE RECORDS SUMMARY | 2024-08-12 15:56 | XMS_ITS | Encounter Summary ---
Author Organization [facility] [place] [address] Care Team Providers Care Table Assembler Metal Name Role Phone Natty Mckinney MD Primary Care Provider [phone] Encounter Details Date Type Department Care Team (Late st Contact Info) Description 05/26/2020 Telephone Radiation Oncology at [address] [address] Tamara Boone RN Social History [...] Miscellaneous Notes * Telephone Encounter - Tamara oBone RN - 05/26/2020 5:18 PM EDT Radiation Oncology Nurse Telephone Note [place], [place] Patient states that he is changing his pharmacy from [facility] to [facility]. He asked that the Dexamethasone 1 mg and Flomax prescriptions be sent to [facility]. He ran out of the Flomax yesterday and feels it does help He is still having some flow problems with urine . It takes a while to empty bladder. Denies straining. Dysuria is now resolved, but flow still an issue. Prescriptions for these medications were sent to [facility] per his request. Dr Arroyo informed of this via this note. documented in this encounter Plan of Treatment Not on file documented as of this encounter Visit Diagnoses Diagnosis Malignant neoplasm of prostate documented in this encounter Care Teams Table Assembler Metal Relationship Specialty Start Date End Date Natty Mckinney MD [address] [place] [address] PCP - General 10/11/10 documented as of this encounter
--- OUTSIDE RECORDS SUMMARY | 2024-08-12 15:56 | XMS_ITS | Encounter Summary ---
Author Organization [facility] [place] [address] Care Team Providers Care Credit Risk Analytics Manager Name Role Phone Natty Mckinney MD Primary Care Provider [phone] Encounter Details Date Type Department Care Team (Late st Contact Info) Description 03/16/2020 Telephone Radiation Oncology at [address] [phone] Arun Lyle Social History Tobacco [...] on filedocumented in this encounter Care Teams Credit Risk Analytics Manager Relationship Specialty Start Date End Date Natty Mckinney MD [address] [place] [address] PCP - General 10/11/10 documented as of this encounter
--- OUTSIDE RECORDS SUMMARY | 2024-08-12 15:56 | XMS_ITS | Encounter Summary ---
Author Organization [facility] [place] [address] Care Team Providers Care Residency Coordinator Name Role Phone Natty Mckinney MD Primary Care Provider [phone] Encounter Details Date Type Department Care Team (Late st Contact Info) Description 05/17/2020 Telephone Radiation Oncology at [address] [phone] Tamara Boone RN Social History [...] Nurse Telephone Note [facility]- [place], [place] ----- Message from Santiago Arroyo MD [...] on filedocumented in this encounter Care Teams Residency Coordinator Relationship Specialty Start Date End Date Natty Mckinney MD [address] [place] [address] PCP - General 10/11/10 documented as of this encounter
--- OUTSIDE RECORDS SUMMARY | 2024-08-12 15:56 | XMS_ITS | Encounter Summary ---
Author Organization [facility] [place] [address] Care Team Providers Care Orchid Grower Name Role Phone Natty Mckinney MD Primary Care Provider [phone] Encounter Details Date Type Department Care Team (Latest Contact Info) Description 03/12/2020 10:00 AM EDT Procedure visit Radiation Oncology at [address] [phone] Benito Samayoa MD [facility] [place] [address] Malignant neoplasm of prostate Social History Tobacco [...] prostate documented in this encounter Care Teams Orchid Grower Relationship Specialty Start Date End Date Natty Mckinney MD [address] [place] [address] PCP - General 10/11/10 documented as of this encounter
--- OUTSIDE RECORDS SUMMARY | 2024-08-12 15:56 | XMS_ITS | Encounter Summary ---
Author Organization [facility] [place] [address] Care Team Providers Care Quality Assurance Supervisor Name Role Phone Natty Mckinney MD Primary Care Provider [phone] Encounter Details Date Type Department Care Team (Late st Contact Info) Description 05/06/2020 8:30 AM EDT Office Visit Radiation Oncology at [address] [phone] Santiago Arroyo MD [address] [place] [address] RADIATION ONCOLOGY [place], [place] [phone] Malignant neoplasm of prostate Social History Tobacco [...] MD, MS Radiation Oncology ?? [facility] [phone] (paging air table operator) Pager #[phone] ?? PATIENT IDENTIFICATION ? Name Krishan Monte [...] Start Date End Date 03/10/20 03/19/20 ?? POST ANESTHESIA ROOM NURSE TREATMENT MANCILLA: ?? INTERVAL HISTORY Subjective: General [...] prostate documented in this encounter Care Teams Quality Assurance Supervisor Relationship Specialty Start Date End Date Natty Mckinney MD [address] [place] [address] PCP - General 10/11/10 documented as of this encounter
--- OUTSIDE RECORDS SUMMARY | 2024-08-12 15:56 | XMS_ITS | Encounter Summary ---
Author Organization [facility] [place] [address] Care Team Providers Care Consultant Teacher Name Role Phone Natty Mckinney MD Primary Care Provider [phone] Encounter Details Date Type Department Care Team (Late st Contact Info) Description 04/26/2020 Telephone Radiation Oncology at [address] [phone] Tamara Boone RN Social History [...] EDT Radiation Oncology Nurse Telephone Note [facility]- [place], [place] ----- Message from Santiago Arroyo MD [...] this. Tamara 04/26/20 16:10 Telephone call to [facility] ( [place], [place]) Natty Mckinney MD [phone] Spoke to nurse, Yanni. I read her [...] on filedocumented in this encounter Care Teams Consultant Teacher Relationship Specialty Start Date End Date Natty Mckinney MD [address] [place] [address] PCP - General 10/11/10 documented as of this encounter
--- OUTSIDE RECORDS SUMMARY | 2024-08-12 15:56 | XMS_ITS | Encounter Summary ---
Author Organization [facility] [place] [address] Care Team Providers Care Civil Project Engineer Name Role Phone Natty Mckinney MD Primary Care Provider [phone] Encounter Details Date Type Department Care Team (Late st Contact Info) Description 03/10/2020 2:15 PM EDT Procedure visit Radiation Oncology at [address] [phone] Santiago Arroyo MD [address] [place] [address] RADIATION ONCOLOGY [place], [place] [phone] Malignant neoplasm of prostate Social History Tobacco [...] Note 03/07/20 Santiago Arroyo MD Radiation Oncology [facility] [phone] (paging c d reactor operator) PATIENT IDENTIFICATION Name Krishan Monte Date [...] prostate documented in this encounter Care Teams Civil Project Engineer Relationship Specialty Start Date End Date Natty Mckinney MD [address] [place] [address] PCP - General 10/11/10 documented as of this encounter
--- OUTSIDE RECORDS SUMMARY | 2024-08-12 15:56 | XMS_ITS | Encounter Summary ---
Author Organization [facility] [place] [address] Care Team Providers Care Text Transcriber Name Role Phone Natty Mckinney MD Primary Care Provider [phone] Reason for Visit * Reason Comments Prostate Cancer Encounter Details Date Type Department Care Team (Late st Contact Info) Description 02/09/2021 1:45 PM EDT TH Visit (TeleHealth) Radiation Oncology at [address] [phone] Shweta Hendrix APRN [address] [place] [address] RADIATION ONCOLOGY [place], [place] [phone] Malignant neoplasm of prostate Social History Tobacco [...] Message was left for patient to call [facility] to reschedule documented in this encounter Plan of Treatment Not on file documented as of this encounter Visit Diagnoses Diagnosis Malignant neoplasm of prostate documented in this encounter Care Teams Text Transcriber Relationship Specialty Start Date End Date Natty Mckinney MD [address] [place] [address] PCP - General 10/11/10 documented as of this encounter
--- OUTSIDE RECORDS SUMMARY | 2024-08-12 15:56 | XMS_ITS | Encounter Summary ---
Author Organization [facility] [place] [address] Care Team Providers Care Tufting Creeler Name Role Phone Natty Mckinney MD Primary Care Provider Reason for Visit * Reason Onset Date Comments Prior Authorization 03/24/2021 Encounter Details Date Type Department Care Team (Late st Contact Info) Description 03/24/2021 Telephone H[place]ology [place] [phone] Shantell Schmitt Prior Authorization Social History Tobacco [...] - 03/24/2021 1:45 PM EDT PA: CPT 79148 Submitted verbally to [facility] [phone] Case:#[id number] Approved Auth#: [id number] Valid: 03/24/21-05/08/21 documented in this encounter Plan of Treatment Not on file documented as of this encounter Visit Diagnoses Not on filedocumented in this encounter Care Teams Tufting Creeler Relationship Specialty Start Date End Date Natty Mckinney MD [address] [place] [address] PCP - General 10/11/10 documented as of this encounter
--- OUTSIDE RECORDS SUMMARY | 2024-08-12 15:56 | XMS_ITS | Encounter Summary ---
Author Organization [facility] [place] [address] Care Team Providers Care Home Manager Name Role Phone Natty Mckinney MD Primary Care Provider [phone] Reason for Visit * Reason Comments Prostate Cancer Encounter Details Date Type Department Care Team (Late st Contact Info) Description 03/24/2021 10:30 AM EDT TH Visit (TeleHealth) Radiation Oncology at [address] [phone] Shweta Hendrix VISITOR SERVICES COORDINATOR [address] [place] [address] [place] [address] Malignant neoplasm of prostate Social History Tobacco [...] Start Date End Date 4/22/20 5/1/20 ?? ASSOCIATE ACCOUNT MANAGER TREATMENT MANCILLA: ?? Patient Active Problem List [...] OTHER 10/08/2019 CT Guided Biopsy Other 10/08/2019 [facility] RAD CAT SCAN Medications 03/24/21 1129 Medication Sig Taking? mecobalamin, vitamin B12, 1,000 mcg Tablet, Chewable Inject into the vein. Yes diclofenac (VOLTAREN) 1 % Gel Apply topically. Yes naloxone 4 mg/actuation [place], Non-Aerosol by Nasal route. 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 Because he had persistent hip pain he had imaging done of his hip at [facility] where there were concerning findings and [...] affect walking. He had recent imaging at [facility] which demonstrated some concerning findings . Recent knee replacement on the right Exercise/functional status: Limited due to fatigue but able to drive and manage ostomy care, ADL and IADL Psych Some anxiety related to recent XR findings KPS 70-80 PE : N/E Labs: 02/08/2021-- CA=9.1, GLU= 121, BUN=12, CREAT=1.0, EGFR=>60, k=5.0, ZT=633, CO2=26.4, WBC=10.03, RBC= 4.21, HGB=13.4, HCT=41.7, EEEV=588 PSA History:?? 12/21/2020-- 1.6 08/31/20 1.1 04/19/20: 1.9 09/08/19:??6.38 06/19/19: ?7.2 01/06/19: ?5.4 08/15/16: ?3.32 04/16/15: ?3.8 04/18/13: ?4.57 11/22/12: ?4.69 Imaging: Assessment/ Plan MR Mnote IS A is a 55 y.o.man who is s/p SBRT for low risk prostate cancer PSA 7.2, [place] 3+3. He was treated with radiation therapy [...] prostate documented in this encounter Care Teams Home Manager Relationship Specialty Start Date End Date Natty Mckinney MD [address] [place] [address] PCP - General 10/11/10 documented as of this encounter
--- OUTSIDE RECORDS SUMMARY | 2024-08-12 15:56 | XMS_ITS | Encounter Summary ---
Author Organization [facility] [place] [address] Care Team Providers Care Drawing Instructor Name Role Phone Natty Mckinney MD Primary Care Provider [phone] Encounter Details Date Type Department Care Team (Late st Contact Info) Description 09/03/2020 9:00 AM EDT Office Visit Radiation Oncology at [address] [phone] Akila Ortiz APRN [facility] [place] [address] Malignant neoplasm of prostate Social History Tobacco [...] Ortiz APRN Radiation Oncology ?? [facility] ?? PATIENT IDENTIFICATION ? Name Krishan Monte [...] Start Date End Date 03/10/20 03/19/20 ?? BEHAVIORAL TECHNICIAN TREATMENT MANCILLA: ?? INTERVAL HISTORY Subjective: General [...] (ongoing for multiple years). MEDS Medications 09/03/20 0926 Medication Sig Taking? cyanocobalamin, vitamin B-12, 1,000 [...] prostate documented in this encounter Care Teams Drawing Instructor Relationship Specialty Start Date End Date Natty Mckinney MD [address] [place] [address] PCP - General 10/11/10 documented as of this encounter
--- OUTSIDE RECORDS SUMMARY | 2024-08-12 15:57 | XMS_ITS | Encounter Summary ---
Author Organization [facility] Address [address] [place] [address] Care Team Providers Care Shade Maker Name Role Phone Natty Mckinney MD Primary Care Provider [phone] Encounter Details Date Type Department Care Team (Late st Contact Info) Description 04/21/[address] [facility] Pathology & Laboratory Medicine - [facility] [address] [place] [address] Outr Resulting Lab, Provider Social History Tobacco [...] 20 - 40 mg/dL 04/22/2024 10:27 EDT [facility] Blood VENOUS BLOOD / Unknown 04/21/2024 10:35 EDT 04/21/2024 16:59 EDT Provider Outr Resulting Lab CHEMISTRY & BLOOD GAS ORDERABLES [facility] [address] [place], [place] [phone] documented in this encounter Visit Diagnoses Not on filedocumented in this encounter Care Teams Shade Maker Relationship Specialty Start Date End Date Natty Mckinney MD [address] [place] [address] PCP - General 09/29/15 documented as of this encounter
--- OUTSIDE RECORDS SUMMARY | 2024-08-12 15:57 | XMS_ITS | Encounter Summary ---
Author Organization [facility] [place] [address] Care Team Providers Care Machine Maintenance Mechanic Name Role Phone Natty Mckinney MD Primary Care Provider [phone] Reason for Referral * Diagnostic Test (Routine) - Closed Specialty Diagnoses / Procedures Referred By Contac t Referred To Contact Radiology Diagnoses Elevated PSA Procedures MRI Pelvis wwo (Prostate) Daniele Seals MD [facility] [place] [address] [place] [address] Referral ID Status Reason Start Date Expiration Date V isits Requested Visits Authorized [id number] Closed Specialty Service Requested 09/08/2019 09/07/2020 1 1 Reason for Visit * Diagnostic Test (Routine) - Closed Specialty Diagnoses / Procedures Referred By Contac t Referred To Contact Radiology Diagnoses Elevated PSA Procedures MRI Pelvis wwo (Prostate) Daniele Seals MD [facility] [place] [address] [place] [address] Referral ID Status Reason Start Date Expiration Date V isits Requested Visits Authorized [id number] Closed Specialty Service Requested 09/08/2019 09/07/2020 1 1 Encounter Details Date Type Department Care Team (Latest Contact Info) Description 09/23/2019 4:27 PM EST - 09/23/2019 11:59 PM EST Hospital Encounter MRI at [facility] [place] [address] Daniele Seals MD [facility] [place] [address] Elevated PSA Discharge Disposition: Home Social History [...] mLs documented in this encounter Care Teams Machine Maintenance Mechanic Relationship Specialty Start Date End Date Natty Mckinney MD [address] [place] [address] PCP - General 10/11/10 documented as of this encounter
--- OUTSIDE RECORDS SUMMARY | 2024-08-12 15:57 | XMS_ITS | Clinical Summary ---
Author Organization [facility] Address [address] [place] [address] Care Team Providers Care Lumpia Wrapper Maker Name Role Phone Natty Mckinney MD Primary Care Provider [phone] Allergies No known active allergies Medications Medication [...] naloxone (NARCAN) 4 mg/actuation nasal spray 1 [place] by nasal route as needed for Opioid [...] pouches part #8817 Active Ostomy Supplies by [facility] (non-drug; combo route) route daily. [place] wafers part # 8732 Active Active [...] subsequent encounter 01/05/2021 Syncope 01/05/2021 Ileostomy status ([facility]) 01/05/2021 Chronic abdominal pain 01/05/2021 Crohn's disease ([facility]) 01/05/2021 Encounters Date Type Department Care Team Description 07/07/2024 Lab Requisition [facility] Pathology & Laboratory Medicine - [address] [address] Outr Resulting Lab, Provider from Last 3 Months Surgical History Surgery Date Site/Laterality Comments SMALL INTESTINE SURGERY ileostomy 1988 due to intractable crohn's flare Medical History Medical History Date Comments Crohn disease ([facility]) Prostate CA ([facility]) radiation [facility] Knee osteoarthritis Family History Medical History Relation [...] Immunization (1 of 2 - PCV) 1970 RSV Immunization ( o r 60+ Years) (1 - 1-dose 60+ series) 2024 COVID-19 Vaccine ( season) 2024 Procedures Procedure Name Priority Date/Time Associated Diagnosis Comments PREALBUMIN Routine 07/07/2024 14:00 EDT from Last 3 Months Results * PREALBUMIN (07/07/2024 14:00 EDT) Prealbumin 23 20 - 40 mg/dL 07/08/2024 11:30 EDT [facility] Blood VENOUS BLOOD / Unknown 07/07/2024 14:00 EDT 07/07/2024 22:26 EDT Provider Outr Resulting Lab CHEMISTRY & BLOOD GAS ORDERABLES [facility] [address] [place], [place] [id number] from Last 3 Months Care Teams Lumpia Wrapper Maker Relationship Specialty Start Date End Date Natty Mckinney MD [address] [place] [address] PCP - General 09/29/15
--- OUTSIDE RECORDS SUMMARY | 2024-08-12 15:57 | XMS_ITS | Encounter Summary ---
Author Organization [facility] Address [address] [place] [address] Care Team Providers Care Aerographer Name Role Phone Natty Mckinney MD Primary Care Provider [phone] Encounter Details Date Type Department Care Team (Late st Contact Info) Description 04/17/2023 Lab Requisition [facility] Pathology & Laboratory Medicine - [facility] [address] [place] [address] Outr Resulting Lab, Provider Social History Tobacco [...] 20 - 40 mg/dL 04/18/2023 10:20 EDT [facility] Blood VENOUS BLOOD / Unknown 04/17/2023 10:01 EDT 04/17/2023 21:57 EDT Provider Outr Resulting Lab CHEMISTRY & BLOOD GAS ORDERABLES [facility] [address] [place] [address] documented in this encounter Visit Diagnoses Not on filedocumented in this encounter Care Teams Aerographer Relationship Specialty Start Date End Date Natty Mckinney MD [address] [place] [address] PCP - General 09/29/15 documented as of this encounter
--- OUTSIDE RECORDS SUMMARY | 2024-08-12 15:57 | XMS_ITS | Encounter Summary ---
Author Organization [facility] [place] [address] Care Team Providers Care Jazz Musician Name Role Phone Natty Mckinney MD Primary Care Provider [phone] Reason for Referral * Diagnostic Test (Routine) - Closed Specialty Diagnoses / Procedures Referred By Contangela t Referred To Contact Radiology Diagnoses Elevated PSA Procedures MRI Pelvis wwo (Prostate) Daniele Seals MD [facility] [place] [address] [place] [address] Referral ID Status Reason Start Date Expiration Date V isits Requested Visits Authorized [id number] Closed Specialty Service Requested 09/08/2019 09/07/2020 1 1 Encounter Details Date Type Department Care Team (Late st Contact Info) Description 09/08/2019 8:00 AM EDT Office Visit Hematology [place] [phone] Daniele Seals MD [facility] [place] [address] Elevated PSA Social History Tobacco Use Types [...] Siri Gunn - 09/08/2019 8:00 AM EDT [facility] SECTION OF UROLOGY Urologic Outpatient Consult [...] 2017), SOB Cardiovascular: Denies chest pain, arrhythmia, NM GI:Denies GI bleed, GERD, constipation or diarrhea. [...] admission.) Siri Gunn MD Section of Urology [facility] Office: [phone] I have seen the patient and reviewed [...] (PSA) documented in this encounter Care Teams Jazz Musician Relationship Specialty Start Date End Date Natty Mckinney MD [address] [place] [address] PCP - General 10/11/10 documented as of this encounter
--- OUTSIDE RECORDS SUMMARY | 2024-08-12 15:57 | XMS_ITS | Encounter Summary ---
Author Organization [facility] Address [address] [place] [address] Care Team Providers Care Blanker Operator Name Role Phone Natty Mckinney MD Primary Care Provider [phone] Encounter Details Date Type Department Care Team (Late st Contact Info) Description 12/03/2023 Lab Requisition [facility] Pathology & Laboratory Medicine - [facility] [address] [place] [address] Outr Resulting Lab, Provider Social History Tobacco [...] 20 - 40 mg/dL 12/04/2023 9:51 EST [facility] Blood VENOUS BLOOD / Unknown 12/03/2023 13:00 EST 12/03/2023 21:40 EST Provider Outr Resulting Lab CHEMISTRY & BLOOD GAS ORDERABLES [facility] [address] [place] [address] documented in this encounter Visit Diagnoses Not on filedocumented in this encounter Care Teams Blanker Operator Relationship Specialty Start Date End Date Natty Mckinney MD [address] [place] [address] PCP - General 09/29/15 documented as of this encounter
--- OUTSIDE RECORDS SUMMARY | 2024-08-12 15:57 | XMS_ITS | Encounter Summary ---
[place] [address] Care Team Providers Care Clerical Adviser Name Role Phone Natty Mckinney MD Primary Care Provider [phone] Reason for Referral * Diagnostic Test (Routine) - Closed Specialty Diagnoses / Procedures Referred By Claire t Referred To Contact Radiology Diagnoses Elevated PSA Procedures CT Guided Biopsy Other Daniele Seals MD [facility] [place] [address] [facility] [place] [address] Referral ID Status Reason Start Date Expiration Date V isits Requested Visits Authorized [id number] Closed Specialty Service Requested 09/26/2019 09/25/2020 1 1 Reason for Visit * Diagnostic Test (Routine) - Closed Specialty Diagnoses / Procedures Referred By Contac t Referred To Contact Radiology Diagnoses Elevated PSA Procedures CT Guided Biopsy Other Daniele Seals MD [facility] [place] [address] [facility] [place] [address] Referral ID Status Reason Start Date Expiration Date V isits Requested Visits Authorized [id number] Closed Specialty Service Requested 09/26/2019 09/25/2020 1 1 Encounter Details Date Type Department Care Team (Latest Contact Info) Description 10/08/2019 7:19 AM EST - 10/08/2019 11:59 PM EST Hospital Encounter CT Scan at [facility] [place] [address] Daniele Seals MD [facility] [address] Elevated PSA Discharge Disposition: Home Social History [...] Montiel RN - 10/08/2019 10:30 AM EST [facility] Vascular and Interventional Radiology Biopsy Discharge Instructions [...] be reported to you by your primary home health care physician or the clinician who ordered the biopsy. [...] is during regular office hours, please call [phone]. If it is after regular office hours, or on weekends or holidays, please call [phone] and ask to speak to the Etcher Electrolytic aeronautical research engineer for Interventional Radiology. You have received [...] please contact your M. D. Revised 09/04/19 [facility] Vascular and Interventional Radiology Biopsy Discharge Instructions [...] be reported to you by your primary home health care physician or the clinician who ordered the biopsy. [...] is during regular office hours, please call [phone]. If it is after regular office hours, or on weekends or holidays, please call [phone] and ask to speak to the Etcher Electrolytic aeronautical research engineer for Interventional Radiology. You have received [...] (home) Telephone Information: PCP Natty Mckinney MD [phone] Date/Time of call: October 09, 2019/9:25 AM [...] of : 1965 AGE: 54 y.o. Address: [address] [address] (home) Mobile: Telephone Information: Referring Provider: Daniele Seals REASON FOR VISIT: Order Questions Answers Where will study be performed? [facility] Radiology [120] Laterality Right Is the [...] this encounter H&P Notes * Barbara Pereztammy, [employer] - 10/08/2019 8:37 AM EST Images from [...] Questions Answers Where will study be performed? [facility] Radiology [120] Laterality Right Is the [...] Prostate was localized with CT, patient prone. ??Many, mid and basal sites located on right and left. After sterile preparation of the overlying skin, 7 cc 1% lidocaine SQ was administered for anesthesia, and a 17 ga needle guide was advanced under CT guidance into the mass. The 18 ga biopsy gun was advanced coaxially and specimen obtained x 1-2 at each site and submitted individually labelled ??to pathology. ??[place]cord were removed and hemostasis obtained by manual [...] Report (10/08/2019 9:45 AM EST) Final Diagnosis [id number] ? Location: [facility] The signing pathologist has (i) examined the [...] Mac Coulter Verified: ??10/10/2019 ?Pathologist Performed at: ??-[facility] Dept. of Pathology, [place], [place] DISCUSSION Scanned slides: [id number] . CLINICAL INFORMATION Specimen Submitted: A - Right Lateral Base B - Right Lateral Mid C - Right Lateral Many D - Right Base E - Right Mid F - Right Many G - Left Lateral Base H - Left Lateral Mid I - Left Lateral Many J - Left Base K - Left Mid L - Left Many Clinical History and Diagnosis: Patient status post [...] labeled L1. ??crj 10/10/2019 2:41 PM EST [facility] PROSTATIC STRUCTURE / Unknown [...] AM EST Daniele Seals MD PATHOLOGY/CYTOLOGY ORDERABLES [facility] [place] [address] * Specimen to Pathology (10/08/2019 9:16 AM EST) AP Specimen 10/08/2019 9:16 AM EST 10/08/2019 9:16 AM EST Narrative [facility] - 10/08/2019 9:16 AM EST Specimen requisition ordered. ??Separate Pathology report to follow Daniele Seals MD PATHOLOGY/CYTOLOGY ORDERABLES Performing Organization Address City/[facility]/ZIP Co de Phone Number [facility] [place] [address] * Specimen to Pathology (10/08/2019 9:16 AM EST) AP Specimen 10/08/2019 9:16 AM EST 10/08/2019 9:16 AM EST Narrative [facility] - 10/08/2019 9:16 AM EST Specimen requisition ordered. ??Separate Pathology report to follow Daniele Seals MD PATHOLOGY/CYTOLOGY ORDERABLES Performing Organization Address [facility]/ZIP Co de Phone Number [facility] [place] [address] * Specimen to Pathology (10/08/2019 9:16 AM EST) AP Specimen 10/08/2019 9:16 AM EST 10/08/2019 9:16 AM EST Narrative [facility] - 10/08/2019 9:16 AM EST Specimen requisition ordered. ??Separate Pathology report to follow Daniele Seals MD PATHOLOGY/CYTOLOGY ORDERABLES Performing Organization Address [facility] [place] [address] * Specimen to Pathology (10/08/2019 9:16 AM EST) AP Specimen 10/08/2019 9:16 AM EST 10/08/2019 9:16 AM EST Narrative [facility] - 10/08/2019 9:16 AM EST Specimen requisition ordered. ??Separate Pathology report to follow Daniele Seals MD PATHOLOGY/CYTOLOGY ORDERABLES Performing Organization Address [facility] Co de Phone Number [facility] [place] [place] [address] * Specimen to Pathology (10/08/2019 9:16 AM EST) AP Specimen 10/08/2019 9:16 AM EST 10/08/2019 9:16 AM EST Narrative [facility] - 10/08/2019 9:16 AM EST Specimen requisition ordered. ??Separate Pathology report to follow Daniele Seals MD PATHOLOGY/[place] [address] * Specimen to Pathology (10/08/2019 9:16 AM EST) AP Specimen 10/08/2019 9:16 AM EST 10/08/2019 9:16 AM EST Narrative [facility] - 10/08/2019 9:16 AM EST Specimen requisition ordered. ??Separate Pathology report to follow Daniele Seals MD PATHOLOGY/[place] [address] * Specimen to Pathology (10/08/2019 9:08 AM EST) AP Specimen 10/08/2019 9:08 AM EST 10/08/2019 9:08 AM EST Narrative [facility] - 10/08/2019 9:08 AM EST Specimen requisition ordered. ??Separate Pathology report to follow Daniele Seals MD PATHOLOGY/CYTOLOGY ORDERABLES [facility] [place] [address] * Specimen to Pathology (10/08/2019 9:08 AM EST) AP Specimen 10/08/2019 9:08 AM EST 10/08/2019 9:08 AM EST Narrative [facility] - 10/08/2019 9:08 AM EST Specimen requisition ordered. ??Separate Pathology report to follow Daniele Seals MD PATHOLOGY/CYTOLOGY ORDERABLES [facility] [place] [address] * Specimen to Pathology (10/08/2019 9:08 AM EST) AP Specimen 10/08/2019 9:08 AM EST 10/08/2019 9:08 AM EST Narrative [facility] - 10/08/2019 9:08 AM EST Specimen requisition ordered. ??Separate Pathology report to follow Daniele Seals MD PATHOLOGY/CYTOLOGY ORDERABLES Performing Organization Address [facility]/[place] [address] * Specimen to Pathology (10/08/2019 9:08 AM EST) AP Specimen 10/08/2019 9:08 AM EST 10/08/2019 9:08 AM EST Narrative [facility] - 10/08/2019 9:08 AM EST Specimen requisition ordered. ??Separate Pathology report to follow Daniele Seals MD PATHOLOGY/CYTOLOGY ORDERABLES Performing Organization Address [facility]/ZIP Co de Phone Number [facility] [place] [address] * Specimen to Pathology (10/08/2019 9:08 AM EST) AP Specimen 10/08/2019 9:08 AM EST 10/08/2019 9:08 AM EST Narrative [facility] - 10/08/2019 9:08 AM EST Specimen requisition ordered. ??Separate Pathology report to follow Daniele Seals MD PATHOLOGY/CYTOLOGY ORDERABLES Performing Organization Address City/[facility] Co de Phone Number [facility] [place] [address] * Specimen to Pathology (10/08/2019 9:08 AM EST) AP Specimen 10/08/2019 9:08 AM EST 10/08/2019 9:08 AM EST Narrative [facility] - 10/08/2019 9:08 AM EST Specimen requisition ordered. ??Separate Pathology report to follow Daniele Seals MD PATHOLOGY/CYTOLOGY ORDERABLES Performing Organization Address City/[facility]/ZIP Co de Phone Number [facility] [place] [address] * Specimen to Pathology (10/08/2019 8:12 AM EST) AP Specimen 10/08/2019 8:12 AM EST 10/08/2019 8:12 AM EST Narrative [facility] - 10/08/2019 8:12 AM EST Specimen requisition ordered. ??Separate Pathology report to follow Daniele Seals MD PATHOLOGY/CYTOLOGY ORDERABLES Performing Organization Address City/[facility]/ZIP Co de Phone Number [facility] [place] [address] documented in this encounter Visit Diagnoses Diagnosis [...] mL/hr documented in this encounter Care Teams Clerical Adviser Relationship Specialty Start Date End Date Natty Mckinney MD [address] [place] [address] PCP - General 10/11/10 documented as of this encounter
--- OUTSIDE RECORDS SUMMARY | 2024-08-12 15:57 | XMS_ITS | Encounter Summary ---
Author Organization [facility] Address [address] [place] [address] Care Team Providers Care Potato Chip Maker Name Role Phone Natty Mckinney MD Primary Care Provider [phone] Encounter Details Date Type Department Care Team (Late st Contact Info) Description 06/25/2023 Lab Requisition [facility] Pathology & Laboratory Medicine - [facility] [address] [place] [address] Outr Resulting Lab, Provider Social History Tobacco [...] 20 - 40 mg/dL 06/26/2023 9:40 EDT [facility] Blood VENOUS BLOOD / Unknown 06/25/2023 11:30 EDT 06/25/2023 21:21 EDT Provider Outr Resulting Lab CHEMISTRY & BLOOD GAS ORDERABLES [facility] [address] [place] [address] documented in this encounter Visit Diagnoses Not on filedocumented in this encounter Care Teams Potato Chip Maker Relationship Specialty Start Date End Date Natty Mckinney MD [address] [place] [address] PCP - General 09/29/15 documented as of this encounter
--- OUTSIDE RECORDS SUMMARY | 2024-08-12 15:57 | XMS_ITS | Encounter Summary ---
Author Organization [facility] Address [address] [place] [address] Care Team Providers Care Foster Parent Name Role Phone Natty Mckinney MD Primary Care Provider [phone] Encounter Details Date Type Department Care Team (Late st Contact Info) Description 12/31/2023 Lab Requisition [facility] Pathology & Laboratory Medicine - [facility] [address] [place] [address] Outr Resulting Lab, Provider Social History Tobacco [...] 20 - 40 mg/dL 01/01/2024 10:13 EST [facility] Blood VENOUS BLOOD / Unknown 12/31/2023 13:00 EST 12/31/2023 21:20 EST Provider Outr Resulting Lab CHEMISTRY & BLOOD GAS ORDERABLES [facility] [address] [place] [address] documented in this encounter Visit Diagnoses Not on filedocumented in this encounter Care Teams Foster Parent Relationship Specialty Start Date End Date Natty Mckinney MD [address] [place] [address] PCP - General 09/29/15 documented as of this encounter
--- OUTSIDE RECORDS SUMMARY | 2024-08-12 15:57 | XMS_ITS | Encounter Summary ---
Author Organization [facility] Address [address] [place] [address] Care Team Providers Care Commissioning Engineer Name Role Phone Natty Mckinney MD Primary Care Provider [phone] Encounter Details Date Type Department Care Team (Late st Contact Info) Description 04/20/2023 Lab Requisition [facility] Pathology & Laboratory Medicine - [facility] [address] [place] [address] Outr Resulting Lab, Provider Social History Tobacco [...] 22 - 322 ng/mL 04/20/2023 19:34 EDT [facility] Blood VENOUS BLOOD / Unknown 04/17/2023 10:10 EDT 04/20/2023 17:31 EDT Provider Outr Resulting Lab CHEMISTRY & BLOOD GAS ORDERABLES Performing Organization Address [facility] Co de Phone Number [facility] [address] [place] [address] * FOLATE (04/17/2023 10:10 EDT) Folate 14.1 See Note ng/mL 04/20/2023 19:36 EDT [facility] Comment: Reference Ranges for Folate: Deficient: ?< 3.4 ng/mL Indeterminate: ??3.4 - 5.4 ng/mL Normal: ? > 5.4 ng/mL The results of this assay can be falsely elevated due to the consumption of Biotin. Blood VENOUS BLOOD / Unknown 04/17/2023 10:10 EDT 04/20/2023 17:31 EDT Provider Outr Resulting Lab CHEMISTRY & BLOOD GAS ORDERABLES Performing Organization Address [facility]/ZIP Co de Phone Number [facility] [address] [place] [address] * VITAMIN B12 (04/17/2023 10:10 EDT) Vitamin B12 881 211 - 911 pg/mL 04/20/2023 19:36 EDT [facility] Blood VENOUS BLOOD / Unknown 04/17/2023 10:10 EDT 04/20/2023 17:31 EDT Provider Outr Resulting Lab CHEMISTRY & BLOOD GAS ORDERABLES [facility] [address] [place] [address] documented in this encounter Visit Diagnoses Not on filedocumented in this encounter Care Teams Commissioning Engineer Relationship Specialty Start Date End Date Natty Mckinney MD [address] [place] [address] PCP - General 09/29/15 documented as of this encounter
--- OUTSIDE RECORDS SUMMARY | 2024-08-12 15:57 | XMS_ITS | Encounter Summary ---
Author Organization [facility] [place] [address] Care Team Providers Care Dental Laboratory Supervisor Name Role Phone Natty Mckinney MD Primary Care Provider [phone] Reason for Visit * Reason Onset Date Comments Pre Procedure Call 08/28/2019 Encounter Details Date Type Department Care Team (Late st Contact Info) Description 08/28/2019 Telephone [place]ematology [place] [phone] Nicole Eagle RN Pre Procedure Call Social [...] labs faxed to Urology office (fax # [phone]). Patient Hx: Leaky heart valve, artifical heart [...] need for biopsy. Registration is at Hem/Onc unit receptionist on 3rd floor. Patient understands and [...] - 4.00 ng/mL [facility] Prostate Specific Antigen, Free 0.6 ng/mL [facility] PSA % Free 10 % [facility] Comment: Probability of finding [employer]ER [employer] on needle biopsy by age in years: [...] CHEMISTRY ORDERABL ES [facility] [address] documented in this encounter Visit Diagnoses Diagnosis Elevated PSA Elevated prostate specific antigen (PSA) documented in this encounter Care Teams Dental Laboratory Supervisor Relationship Specialty Start Date End Date Natty Mckinney MD [address] [place] [address] PCP - General 10/11/10 documented as of this encounter
--- OUTSIDE RECORDS SUMMARY | 2024-08-12 15:57 | XMS_ITS | Encounter Summary ---
Author Organization [facility] Address [facility] [place] [address] Care Team Providers Care Supervisor Fish Hatchery Name Role Phone Natty Mckinney MD Primary Care Provider [phone] Encounter Details Date Type Department Care Team (Late st Contact Info) Description 10/14/2019 Orders [place] [address] Daniele Seals MD [facility] [place] [address] Social History Tobacco Use Types Packs/Day Years [...] filedocumented in this encounter Care Teams Supervisor Fish Hatchery Relationship Specialty Start Date End Date Natty Mckinney MD [address] [place], [place] [address] PCP - General 10/11/10 documented as of this encounter
--- OUTSIDE RECORDS SUMMARY | 2024-08-12 15:57 | XMS_ITS | Encounter Summary ---
Author Organization [facility] [place] [address] Care Team Providers Care Telemarketing Representative Name Role Phone Natty Mckinney MD Primary Care Provider [phone] Reason for Referral * Diagnostic Test (Routine) - Closed Specialty Diagnoses / Procedures Referred By Claire guerrero Referred To Contact Radiology Diagnoses Elevated PSA Procedures CT Guided Biopsy Other Daniele Seals MD [facility] [place] [address] [facility] [place] [address] Referral ID Status Reason Start Date Expiration Date V isits Requested Visits Authorized [id number] Closed Specialty Service Requested 09/26/2019 09/25/2020 1 1 Encounter Details Date Type Department Care Team (Late st Contact Info) Description 09/26/2019 [place] [address] Daniele Seals MD [facility] [place] [address] Elevated PSA Social History Tobacco Use Types [...] guided TP biopsy or refer him to [place] where there are a few folks doing [...] Prostate was localized with CT, patient prone. ??[place], mid and basal sites located on right and left. After sterile preparation of the overlying skin, 7 cc 1% lidocaine SQ was administered for anesthesia, and a 17 ga needle guide was advanced under CT guidance into the mass. The 18 ga biopsy gun was advanced coaxially and specimen obtained x 1-2 at each site and submitted individually labelled ??to pathology. ??[place] were removed and hemostasis obtained by manual [...] (PSA) documented in this encounter Care Teams Telemarketing Representative Relationship Specialty Start Date End Date Natty Mckinney MD [address] [place] [address] PCP - General 10/11/10 documented as of this encounter
--- OUTSIDE RECORDS SUMMARY | 2024-08-12 15:57 | XMS_ITS | Encounter Summary ---
Author Organization [facility] Address [address] [place] [address] Care Team Providers Care Guest Services Attendant Name Role Phone Natty Mckinney MD Primary Care Provider [phone] Encounter Details Date Type Department Care Team (Late st Contact Info) Description 07/07/2024 Lab Requisition [facility] [place] Pathology & Laboratory Medicine - [facility] [address] [place] [address] Outr Resulting Lab, Provider Social History Tobacco [...] 20 - 40 mg/dL 07/08/2024 11:30 EDT [facility] Blood VENOUS BLOOD / Unknown 07/07/2024 14:00 EDT 07/07/2024 22:26 EDT Provider Outr Resulting Lab CHEMISTRY & BLOOD GAS ORDERABLES [facility] [address] [place], [place] [address] documented in this encounter Visit Diagnoses Not on filedocumented in this encounter Care Teams Guest Services Attendant Relationship Specialty Start Date End Date Natty Mckinney MD [address] [place] [address] PCP - General 09/29/15 documented as of this encounter
--- OUTSIDE RECORDS SUMMARY | 2024-08-12 15:57 | XMS_ITS | Encounter Summary ---
Author Organization [facility] Address [address] [place] [address] Care Team Providers Care Nuclear Spectroscopist Name Role Phone Natty Mckinney MD Primary Care Provider [phone] Encounter Details Date Type Department Care Team (Late st Contact Info) Description 06/05/2023 Lab Requisition [facility] Pathology & Laboratory Medicine - [facility] [address] [place] [address] Outr Resulting Lab, Provider Social History Tobacco [...] 20 - 40 mg/dL 06/06/2023 10:53 EDT [facility] Blood VENOUS BLOOD / Unknown 06/04/2023 11:25 EDT 06/05/2023 17:41 EDT Provider Outr Resulting Lab CHEMISTRY & BLOOD GAS ORDERABLES [facility] [address] [place] [address] documented in this encounter Visit Diagnoses Not on filedocumented in this encounter Care Teams Nuclear Spectroscopist Relationship Specialty Start Date End Date Natty Mckinney MD [address] [place] [address] PCP - General 09/29/15 documented as of this encounter
--- OUTSIDE RECORDS SUMMARY | 2024-08-12 15:57 | XMS_ITS | Encounter Summary ---
Author Organization [facility] Address [address] [place] [address] Care Team Providers Care Supervising Law Enforcement Analyst Name Role Phone Natty Mckinney MD Primary Care Provider [phone] Encounter Details Date Type Department Care Team (Late st Contact Info) Description 05/29/2023 Lab Requisition [facility] [place] Pathology & Laboratory Medicine - [place] [address] [place] [address] Outr Resulting Lab, Provider Social History Tobacco [...] 20 - 40 mg/dL 05/30/2023 9:28 EDT [facility] Blood VENOUS BLOOD / Unknown 05/28/2023 15:20 EDT 05/29/2023 15:29 EDT Provider Outr Resulting Lab CHEMISTRY & BLOOD GAS ORDERABLES [facility] [address] [place] [address] documented in this encounter Visit Diagnoses Not on filedocumented in this encounter Care Teams Supervising Law Enforcement Analyst Relationship Specialty Start Date End Date Natty Mckinney MD [address] [place] [address] PCP - General 09/29/15 documented as of this encounter
--- OUTSIDE RECORDS SUMMARY | 2024-08-12 15:57 | XMS_ITS | Encounter Summary ---
Author Organization [facility] Address [address] [place] [address] Care Team Providers Care Blocker Metal Base Name Role Phone Natty Mckinney MD Primary Care Provider [phone] Encounter Details Date Type Department Care Team (Late st Contact Info) Description 06/08/2021 Lab Requisition [facility] Pathology & Laboratory Medicine - [facility] [address] [place] [address] Outr Resulting Lab, Provider Social History Tobacco [...] 0.0 - 3.5 ng/mL 06/08/2021 18:11 EDT [facility] Blood VENOUS BLOOD / Unknown 06/07/2021 14:38 EDT 06/08/2021 16:38 EDT Narrative [facility] - 06/08/2021 18:11 EDT NOTE: Serum PSA concentration should not be interpreted as absolute evidence for the presence or absence of malignant disease. Assayed on [employer] Skyepackaur XPT using chemiluminescent technology.??Values obtained by using different assay methods cannot be used interchangeably. Provider Outr Resulting Lab CHEMISTRY & BLOOD GAS ORDERABLES [facility] [address] [place] [address] documented in this encounter Visit Diagnoses Not on filedocumented in this encounter Care Teams Blocker Metal Base Relationship Specialty Start Date End Date Natty Mckinney MD [address] [place] [address] PCP - General 09/29/15 documented as of this encounter
--- OUTSIDE RECORDS SUMMARY | 2024-08-12 15:57 | XMS_ITS | Encounter Summary ---
Author Organization [facility] Address [address] [place] [address] Care Team Providers Care Media Executive Name Role Phone Natty Mckinney MD Primary Care Provider [phone] Encounter Details Date Type Department Care Team (Late st Contact Info) Description 09/18/2022 Lab Requisition [facility] Pathology & Laboratory Medicine - [facility] [address] [place] [address] Outr Resulting Lab, Provider Social History Tobacco [...] 2.8 - 5.3 pg/mL 09/19/2022 18:12 EDT [facility] Blood VENOUS BLOOD / Unknown 09/18/2022 11:00 EDT 09/19/2022 17:25 EDT Provider Outr Resulting Lab CHEMISTRY & BLOOD GAS ORDERABLES Performing Organization Address [facility] Co de Phone Number [facility] [address] [place] [address] * PSA TOTAL, DIAGNOSTIC (09/18/2022 11:00 EDT) PSA 1.1 <=3.5 ng/mL 09/19/2022 19:58 EDT [facility] Blood VENOUS BLOOD / Unknown 09/18/2022 11:00 EDT 09/19/2022 17:25 EDT Narrative [facility] - 09/19/2022 19:58 EDT NOTE: Serum PSA concentration should not be interpreted as absolute evidence for the presence or absence of malignant disease. Assayed on [employer]ens ADVIA Centaur XPT using chemiluminescent technology.??Values obtained by using different assay methods cannot be used interchangeably. Provider Outr Resulting Lab CHEMISTRY & BLOOD GAS ORDERABLES Performing Organization Address City/[facility]/ZIP Co de Phone Number [facility] [address] [place] [address] documented in this encounter Visit Diagnoses Not on filedocumented in this encounter Care Teams Media Executive Relationship Specialty Start Date End Date Natty Mckinney MD [address] [place] [address] PCP - General 09/29/15 documented as of this encounter
--- OUTSIDE RECORDS SUMMARY | 2024-08-12 15:57 | XMS_ITS | Encounter Summary ---
Author Organization [facility] Address [address] [place] [address] Care Team Providers Care Rug Touch Up Painter Name Role Phone Natty Mckinney MD Primary Care Provider [phone] Reason for Visit * Reason Comments New Patient Visit Joint pain- pt state s knees (right one being replaced) and hands right [facility] joint. Left hip points to joint. Encounter Details Date Type Department Care Team (Late st Contact Info) Description 01/06/2021 14:15 EST Office Visit [facility] Rheumatology [address] [place] [address] Ashley Massey MD [address] [facility] [address] [place] [address] Left hip pain (Primary Dx); [...] Dr Irizarry Ice and rest the wrists [facility] Patient Instructions Learning About Arthritis at [...] and less strength when you pinch or meter reading clerk things. Symptoms may come and go, stay [...] manage mild or moderate arthritis pain with [id number] pain relievers. These include medicines that reduce [...] Where can you learn more? Go to [email or web address] Flag or log into your [employer] account at [email or web address] Enter T110 in the search box to learn more about Learning About Arthritis at the Base of the Thumb. Current as of: October 27, 2019?Content Version: 12.6 ?? [id number] [employer]. Care instructions adapted under license by [facility]. If you have questions about a medical condition or this instruction, always ask your healthcare professional. [employer] disclaims any warranty or liability for your use of this information. documented in this encounter Progress Notes * Ashley Massey MD - 01/06/2021 6335 EST [facility] Rheumatology Chief Complaint Patient [...] Knee osteoarthritis ??? Prostate CA (HCC-CMS) radiation [facility] Family History Problem Relation Age of Onset ??? Crohn's Disease Son Social History: Smoker 2 grown children. From [facility]. Family members nearby. No alcohol.Occasional marijuana [...] reviewed Notes from urology radiation team at [facility] PCP visits and labs. Labs: Lab Requisition [...] 01/06/2021 documented in this encounter Care Teams Rug Touch Up Painter Relationship Specialty Start Date End Date Natty Mckinney MD [address] [place] [address] PCP - General 09/29/15 documented as of this encounter
--- OUTSIDE RECORDS SUMMARY | 2024-08-12 15:57 | XMS_ITS | Encounter Summary ---
Author Organization [facility] [place] [address] Care Team Providers Care Gauge Operator Name Role Phone Natty Mckinney MD Primary Care Provider [phone] Encounter Details Date Type Department Care Team (Late st Contact Info) Description 06/10/2009 [place] [id number] Sidra Omalley MD GASTROENTEROLOGY Social History Tobacco [...] 10:34 AM EDT) Surgical Pathology Report [id number] ? Location: 4T The signing pathologist has [...] on filedocumented in this encounter Care Teams Gauge Operator Relationship Specialty Start Date End Date Natty Mckinney MD [address] [place] [address] PCP - General 10/11/10 documented as of this encounter
--- OUTSIDE RECORDS SUMMARY | 2024-08-12 15:57 | XMS_ITS | Encounter Summary ---
Author Organization [facility] Address [facility] [place] [address] Care Team Providers Care Regional Forester Name Role Phone Natty Mckinney MD Primary Care Provider [phone] Reason for Referral * Consultation (Routine) - Closed Specialty Diagnoses / Procedures Referred By Contangela t Referred To Contact Radiation Oncology Diagnoses Malignant neoplasm of prostate Daniele Seals MD [facility] [place] [address] [facility] Rad Onc Treatment [address] [place] [id number] Referral ID Status Reason Start Date Expiration Date V isits Requested Visits Authorized [id number] Closed Consult, Test & Treat 12/03/2019 12/02/2020 1 1 Encounter Details Date Type Department Care Team (Late st Contact Info) Description 12/03/2019 [place] [address] Daniele Seals MD [facility] [place] [address] Malignant neoplasm of prostate Social History Tobacco [...] prostate documented in this encounter Care Teams Regional Forester Relationship Specialty Start Date End Date Natty Mckinney MD [address] [place] [address] PCP - General 10/11/10 documented as of this encounter
--- OUTSIDE RECORDS SUMMARY | 2024-08-12 15:57 | XMS_ITS | Encounter Summary ---
Author Organization [facility] Address [address] [place] [address] Care Team Providers Care Gas Meter Reader Name Role Phone Natty Mckinney MD Primary Care Provider [phone] Encounter Details Date Type Department Care Team (Late st Contact Info) Description 10/28/2021 Lab Requisition [facility] Pathology & Laboratory Medicine - [facility] [address] [place] [address] Outr Resulting Lab, Provider Social History Tobacco [...] gonorrhoeae Result Negative Negative 10/31/2021 15:21 EST [facility] Chlamydia trachomatis Result Negative Negative 10/31/2021 15:21 EST [facility] Urine URINE / Unknown 10/27/2021 1 5:30 EST 10/28/2021 21:18 EST Provider Outr Resulting Lab MICROBIOLOGY - GENERAL ORDERABLES Performing Organization Address City/State/[facility] Co de Phone Number [facility] [address] [place] [address] documented in this encounter Visit Diagnoses Not on filedocumented in this encounter Care Teams Gas Meter Reader Relationship Specialty Start Date End Date Natty Mckinney MD [address] [place] [address] PCP - General 09/29/15 documented as of this encounter
--- OUTSIDE RECORDS SUMMARY | 2024-08-12 15:57 | XMS_ITS | Encounter Summary ---
Author Organization Formerly [facility] [place] [address] Care Team Providers Care Blueprint Blocker Name Role Phone Natty Mckinney MD Primary Care Provider [phone] Encounter Details Date Type Department Care Team (Latest Contact Info) Description 10/08/2019 7:05 AM EST Laboratory Appointment Lab [address] [place] [id number] Stomach ache; Epidemic vomiting syndrome; Ileostomy status [...] AM EST Stomach ache Epidemic [facility],PLT & AUTO DIFF [...] documented in this encounter Results * TSH [place] (10/08/2019 7:14 AM EST) Thyroid Stimulating Hormone 1.94 0.27 - 4.20 mcIU/mL [facility] Blood specimen (specimen) Venous Draw / Unknown 10/08/2019 7:14 AM EST 10/08/2019 7:27 AM EST Narrative Resulting Agency Comment Spec In Lab Natty Mckinney MD CHEMISTRY ORDERABLES [facility] [place] [address] * Comprehensive metabolic panel (non-fasting) (10/08/2019 7:14 AM EST) Glucose 95 65 - 199 mg/dL [facility] Comment:Diabetes: >=200 mg/d L plus symptoms Blood Urea Nitrogen 16 10 - 20 mg/dL [facility] Creatinine 0.93 0.80 - 1.50 mg/dL [facility] Sodium 138 135 - 145 mmol/L [facility] Potassium 4.6 3.5 - 5.0 mmol/L [facility] Comment: Please note: ??Patients with WBC >100,000 may have falsely elevated Potassium levels. ??For accurate Potassium quantification in these patients send serum separator tube (gold top) for subsequent determinations. ??Contact the Clinical Chemistry Laboratory if there are any questions. Chloride 104 98 - 107 mmol/L [facility] Carbon Dioxide 23 22 - 31 mmol/L [facility] Anion Gap 11 5 - 15 mmol/L [facility] Calcium 9.4 8.5 - 10.5 mg/dL [facility] Protein, Total 6.7 6.1 - 8.0 gm/dL [facility] Albumin 4.4 3.2 - 5.2 gm/dL [facility] Aspartate Aminotransferase 21 0 - 39 unit/L [facility] Alanine Aminotransferase 33 0 - 55 unit/L [facility] Alkaline Phosphatase 97 40 - 130 unit/L [facility] Bilirubin, Total 0.6 0.2 - 1.3 mg/dL [facility] Est Glomerular Filtration Rate 92 >=60 mL/min/1. 73 m?? [facility] Comment: The eGFR was calculated using the CKD-EPI equation. As with all creatinine based estimates of kidney function, eGFR values calculated with the CKD-EPI equation are not accurate in patients with acute kidney failure, extremes of body mass or the acutely ill. [email or web address] eGFR 107 >=60 mL/min/1. 73 m?? [facility] Comment: The eGFR was calculated using the CKD-EPI equation. As with all creatinine based estimates of kidney function, eGFR values calculated with the CKD-EPI equation are not accurate in patients with acute kidney failure, extremes of body mass or the acutely ill. [email or web address]/[email or web address] Blood specimen (specimen) Venous Draw / Unknown 10/08/2019 7:14 AM EST 10/08/2019 7:27 AM EST Narrative Resulting Agency Comment Spec In Lab Natty Mckinney MD CHEMISTRY ORDERABLES [facility] [place] [address] * (ABNORMAL) Differential, Automated (10/08/2019 7:14 AM EST) Neutrophil % 80.5 % [facility] Neutrophil Absolute 9.70(H) 1.70 - 6.10 x10(3)/[facility] Lymph % 10.9 % [facility] Lymphocytes Abs 1.3 0.9 - 3.2 x10(3)/ L [facility] Monocyte % 5.8 % [facility] Monocyte Abs 0.7 0.3 - 0.9 x10(3)/[facility] Eos % 0.7 % [facility] Eosinophils Abs 0.1 0.0 - 0.4 x10(3)/[facility] Basophil % 0.4 % [facility] Baso Absolute 0.0 0.0 - 0.1 x10(3)/[facility] Immature Gran % 1.70 % [facility] Comment: Immature granulocytes(IG's)percentage and absolute count will include metamyelocytes, myelocytes, and promyelocytes. Blood smears from CBCs yielding IG's will be scanned manually for concordance. If this scan disagrees with the automated IG or if promyelocytes are noted, a manual differential will be performed. Immature Gran Absolute 0.21(H) 0.00 - 0.04 x10(3)/[facility] Blood specimen (specimen) 10/08/2019 7:14 AM EST 10/08/2019 7:27 AM EST Narrative Resulting Agency Comment Spec In Lab Natty Mckinney MD HEMATOLOGY ORDERABLE S [facility] [place] [address] * (ABNORMAL) Hemogram (10/08/2019 7:14 AM EST) White Blood Cell 12.1(H) 4.0 - 9.5 x10(3)/[facility] Red Blood Cell 4.53(L) 4.58 - 5.54 x10(6)/[facility] Hemoglobin 14.2 13.7 - 16.5 gm/dL [facility] Hematocrit 43.8 40.5 - 48.5 % [facility] Mean Cell Volume 96.7(H) 82.9 - 93.1 [facility] Mean Cell Hemoglobin 31.3 27.5 - 32.1 pg [facility] Mean Cell Hemoglobin Concentration 32.4 32.0 - 35.7 gm/dL [facility] Platelet 221 145 - 357 x10(3)/mc L [facility] RDW Standard Deviation 46.5(H) 36.0 - 45.0 fL [facility] RDW coefficient of variation 13.1 11.4 - 13.8 % [facility] Mean Platelet Volume 10.6 7.6 - 12.9 fL [facility] NRBC% auto 0.0 % [facility] NRBC Absolute 0.000 0.000 - 0.000 x10(3)/mc L [facility] Blood specimen (specimen) 10/08/2019 7:14 AM EST 10/08/2019 7:27 AM EST Narrative Resulting Agency Comment Spec In Lab Natty Mckinney MD HEMATOLOGY ORDERABLE S [facility] [place] [address] * (ABNORMAL) Vitamin A (10/08/2019 7:14 AM EST) Pathologist [facility] Vitamin A (MARCH) 87.6(H) 32.5 - 78.0 mcg/dL [facility] Comment: ADDITIONAL INFORMATION This test was developed and its performance characteristics determined by [facility] in a manner consistent with CLIA requirements. This test has not been cleared or approved by the U.S. Food and Drug Administration. Test Performed by: [facility] [address] [place] [address] [employer]oplesoft Functional Analyst: Valente Romero M.D. Ph.D.; CLIA# [id number] Blood specimen (specimen) 10/08/2019 7:14 AM EST 10/08/2019 10:36 AM EST Narrative Resulting Agency Comment Spec In Lab Natty Mckinney MD LAB SEND OUT ORDERAB LES Performing Organization Address [facility]/ZIP Co de Phone Number [facility] [place] [address] * Magnesium (10/08/2019 7:14 AM EST) Magnesium 0.87 0.69 - 1.07 mmol/L [facility] Blood specimen (specimen) 10/08/2019 7:14 AM EST 10/08/2019 7:27 AM EST Narrative Resulting Agency Comment Spec In Lab Natty Mckinney MD CHEMISTRY ORDERABLES Performing Organization Address City/[facility] Co de Phone Number [facility] [place] [address] * CK (10/08/2019 7:14 AM EST) Creatine Kinase 59 0 - 200 unit/L [facility] Blood specimen (specimen) 10/08/2019 7:14 AM EST 10/08/2019 7:27 AM EST Narrative Resulting Agency Comment Spec In Lab Natty Mckinney MD CHEMISTRY ORDERABLES Performing Organization Address [facility] Co de Phone Number [facility] [place] [address] * Sedimentation rate (10/08/2019 7:14 AM EST) Sedimentation Rate Automated 5 0 - 15 mm/hr [facility] Blood specimen (specimen) 10/08/2019 7:14 AM EST 10/08/2019 7:27 AM EST Narrative Resulting Agency Comment Spec In Lab Natty Mckinney MD HEMATOLOGY ORDERABLE S Performing Organization Address City/[facility]/ZIP Co de Phone Number [facility] [place] [address] * Vitamin B1, whole blood (10/08/2019 7:14 AM EST) Vit B1 Lvl Wb (MARCH) 177 70 - 180 nmol/L [facility] Comment: ADDITIONAL INFORMATION This test was developed and its performance characteristics determined by [facility] in a manner consistent with CLIA requirements. This test has not been cleared or approved by the U.S. Food and Drug Administration. Test Performed by: [facility] [place] [address] [employer] Functional Analyst: Valente Romero M.D. Ph.D.; CLIA# [id number] Blood specimen (specimen) 10/08/2019 7:14 AM EST 10/08/2019 8:35 AM EST Narrative Resulting Agency Comment Spec In Lab Natty Mckinney MD LAB SEND OUT ORDERAB LES Performing Organization Address City/[facility]/ZIP Co de Phone Number [facility] [place] [address] documented in this encounter Visit Diagnoses Diagnosis Stomach ache Dyspepsia and other specified disorders of function of stomach Epidemic vomiting syndrome Ileostomy status documented in this encounter Care Teams Blueprint Blocker Relationship Specialty Start Date End Date Natty Mckinney MD [address] [place] [address] PCP - General 10/11/10 documented as of this encounter
--- OUTSIDE RECORDS SUMMARY | 2024-08-12 15:57 | XMS_ITS | Encounter Summary ---
Author Organization [facility] [place] [address] Care Team Providers Care Log Chipper Name Role Phone Natty Mckinney MD Primary Care Provider [phone] Encounter Details Date Type Department Care Team (Latest Contact Info) Description 09/16/2019 [place] [address] Natty Mckinney MD [address] [place], [place] [id number] Stomach ache; Epidemic vomiting syndrome; Ileostomy status [...] Wb (MARCH) 177 70 - 180 nmol/L [facility] Comment: ADDITIONAL INFORMATION This test was developed and its performance characteristics determined by [facility] in a manner consistent with CLIA requirements. This test has not been cleared or approved by the U.S. Food and Drug Administration. Test Performed by: [facility] - [address] [address] Supervisor Shuttle Veneering: Valente Romero M.D. Ph.D.; CLIA# [id number] Blood specimen (specimen) 10/08/2019 7:14 AM EST 10/08/2019 8:35 AM EST Narrative Resulting Agency Comment Spec In Lab Natty Mckinney MD LAB SEND OUT ORDERAB LES Performing Organization Address [facility] Phone Number [facility] [place] [address] * Sedimentation rate (10/08/2019 7:14 AM EST) Sedimentation Rate Automated 5 0 - 15 mm/hr [facility] Blood specimen (specimen) 10/08/2019 7:14 AM EST 10/08/2019 7:27 AM EST Narrative Resulting Agency Comment Spec In Lab Natty Mckinney MD HEMATOLOGY ORDERABLE S Performing Organization Address [facility] Phone Number [facility] [place] [address] * CK (10/08/2019 7:14 AM EST) Creatine Kinase 59 0 - 200 unit/L [facility] Blood specimen (specimen) 10/08/2019 7:14 AM EST 10/08/2019 7:27 AM EST Narrative Resulting Agency Comment Spec In Lab Natty Mckinney MD CHEMISTRY ORDERABLES Performing Organization Address [facility] Phone Number [facility] [place] [address] * Magnesium (10/08/2019 7:14 AM EST) Magnesium 0.87 0.69 - 1.07 mmol/L [facility] Blood specimen (specimen) 10/08/2019 7:14 AM EST 10/08/2019 7:27 AM EST Narrative Resulting Agency Comment Spec In Lab Natty Mckinney MD CHEMISTRY ORDERABLES Performing Organization Address [facility]/State/ZIP Co de Phone Number [facility] [place] [address] * (ABNORMAL) Vitamin A (10/08/2019 7:14 AM EST) Vitamin A (MARCH) 87.6(H) 32.5 - 78.0 mcg/dL [facility] Comment: ADDITIONAL INFORMATION This test was developed and its performance characteristics determined by [facility] in a manner consistent with CLIA requirements. This test has not been cleared or approved by the U.S. Food and Drug Administration. Test Performed by: [facility] [place] [address] Supervisor Shuttle Veneering: Valente Romero M.D. Ph.D.; CLIA# [id number] Blood specimen (specimen) 10/08/2019 7:14 AM EST 10/08/2019 10:36 AM EST Narrative Resulting Agency Comment Spec In Lab Natty Mckinney MD LAB SEND OUT ORDERAB LES [facility] [place] [address] documented in this encounter Visit Diagnoses Diagnosis Stomach ache Dyspepsia and other specified disorders of function of stomach Epidemic vomiting syndrome Ileostomy status documented in this encounter Care Teams Log Chipper Relationship Specialty Start Date End Date Natty Mckinney MD [address] [place] [address] PCP - General 10/11/10 documented as of this encounter
--- OUTSIDE RECORDS SUMMARY | 2024-08-12 15:57 | XMS_ITS | Encounter Summary ---
Author Organization [facility] Address [address] [place] [address] Care Team Providers Care Hand Candy Cutter Name Role Phone Natty Mckinney MD Primary Care Provider [phone] Encounter Details Date Type Department Care Team (Late st Contact Info) Description 08/20/2023 Lab Requisition [facility] Pathology & Laboratory Medicine - [facility] [address] [place] [address] Outr Resulting Lab, Provider Social History Tobacco [...] PSA 1.5 <=3.5 ng/mL 08/21/2023 11:41 EDT [facility] Blood VENOUS BLOOD / Unknown 08/20/2023 13:00 EDT 08/20/2023 21:34 EDT Narrative [facility] - 08/21/2023 11:41 EDT NOTE: Serum PSA concentration should not be interpreted as absolute evidence for the presence or absence of malignant disease. Assayed on Single Digits[employer] XPT using chemiluminescent technology.??Values obtained by using different assay methods cannot be used interchangeably. Provider Outr Resulting Lab CHEMISTRY & BLOOD GAS ORDERABLES [facility] [address] [place] [address] documented in this encounter Visit Diagnoses Not on filedocumented in this encounter Care Teams Hand Candy Cutter Relationship Specialty Start Date End Date Ntaty Mckinney MD [address] [place] [address] PCP - General 09/29/15 documented as of this encounter
--- OUTSIDE RECORDS SUMMARY | 2024-08-12 15:57 | XMS_ITS | Encounter Summary ---
Author Organization [facility] Address [address] [place] [address] Care Team Providers Care Staff Readiness Officer Name Role Phone Natty Mckinney MD Primary Care Provider [phone] Encounter Details Date Type Department Care Team (Late st Contact Info) Description 04/09/2023 Lab Requisition [facility] Pathology & Laboratory Medicine - [facility] [address] [place] [address] Outr Resulting Lab, Provider Social History Tobacco [...] 20 - 40 mg/dL 04/10/2023 9:40 EDT [facility] Blood VENOUS BLOOD / Unknown 04/09/2023 10:46 EDT 04/09/2023 21:10 EDT Provider Outr Resulting Lab CHEMISTRY & BLOOD GAS ORDERABLES [facility] [address] [place] [address] documented in this encounter Visit Diagnoses Not on filedocumented in this encounter Care Teams Staff Readiness Officer Relationship Specialty Start Date End Date Natty Mckinney MD [address] [place] [address] PCP - General 09/29/15 documented as of this encounter
--- OUTSIDE RECORDS SUMMARY | 2024-08-12 15:57 | XMS_ITS | Encounter Summary ---
Author Organization [facility] Address [facility] [place] [address] Care Team Providers Care Welding Process Engineer Name Role Phone Natty Mckinney MD Primary Care Provider [phone] Encounter Details Date Type Department Care Team (Late st Contact Info) Description 10/01/2019 [place] [address] Daniele Seals MD [facility] [place] [address] Social History Tobacco Use Types Packs/Day Years [...] on filedocumented in this encounter Care Teams Welding Process Engineer Relationship Specialty Start Date End Date Natty Mckinney MD [address] [place] [address] PCP - General 10/11/10 documented as of this encounter
--- OUTSIDE RECORDS SUMMARY | 2024-08-12 15:57 | XMS_ITS | Encounter Summary ---
Author Organization [facility] Address [address] [place] [address] Care Team Providers Care Cardiology Technician Name Role Phone Natty Mckinney MD Primary Care Provider [phone] Encounter Details Date Type Department Care Team (Late st Contact Info) Description 04/12/2023 Lab Requisition [facility] Pathology & Laboratory Medicine - [facility] [address] [place] [address] Outr Resulting Lab, Provider Social History Tobacco [...] 20 - 40 mg/dL 04/13/2023 9:57 EDT [facility] Blood VENOUS BLOOD / Unknown 04/12/2023 10:47 EDT 04/12/2023 21:05 EDT Provider Outr Resulting Lab CHEMISTRY & BLOOD GAS ORDERABLES [facility] [address] [place] [address] documented in this encounter Visit Diagnoses Not on filedocumented in this encounter Care Teams Cardiology Technician Relationship Specialty Start Date End Date Natty Mckinney MD [address] [place] [address] PCP - General 09/29/15 documented as of this encounter
--- OUTSIDE RECORDS SUMMARY | 2024-08-12 15:57 | XMS_ITS | Encounter Summary ---
Author Organization [facility] [place] [address] Care Team Providers Care Tibco Developer Name Role Phone Natty Mckinney MD Primary Care Provider [phone] Encounter Details Date Type Department Care Team (Latest Contact Info) Description 09/08/2019 7:00 AM EDT - 09/08/2019 11:59 PM EDT Hospital Encounter Hematology [place] [address] Elevated PSA Discharge Disposition: Home Social History [...] (Ultrasensitiv e) 6.38(H) 0.00 - 4.00 ng/mL [facility] Prostate Specific Antigen, Free 0.6 ng/mL [facility] PSA % Free 10 % [facility] Comment: Probability of finding SPANISH TUTOR on needle biopsy by age in years: [...] Lab Daniele Seals MD CHEMISTRY ORDERABL ES [facility] [place] [address] documented in this encounter Visit Diagnoses Diagnosis Elevated PSA Elevated prostate specific antigen (PSA) documented in this encounter Care Teams Tibco Developer Relationship Specialty Start Date End Date Natty Mckinney MD [address] [place] [address] PCP - General 10/11/10 documented as of this encounter
--- OUTSIDE RECORDS SUMMARY | 2024-08-12 15:57 | XMS_ITS | Encounter Summary ---
Author Organization [facility] Address [address] [place] [address] Care Team Providers Care General Machine Operator Name Role Phone Natty Mckinney MD Primary Care Provider [phone] Encounter Details Date Type Department Care Team (Late st Contact Info) Description 05/07/2023 Lab Requisition [facility] Pathology & Laboratory Medicine - [facility] [address] [place] [address] Outr Resulting Lab, Provider Social History Tobacco [...] 20 - 40 mg/dL 05/08/2023 9:37 EDT [facility] Blood VENOUS BLOOD / Unknown 05/07/2023 10:52 EDT 05/07/2023 21:44 EDT Provider Outr Resulting Lab CHEMISTRY & BLOOD GAS ORDERABLES [facility] [address] [place] [address] documented in this encounter Visit Diagnoses Not on filedocumented in this encounter Care Teams General Machine Operator Relationship Specialty Start Date End Date Natty Mckinney MD [address] [place] [address] PCP - General 09/29/15 documented as of this encounter
--- OUTSIDE RECORDS SUMMARY | 2024-08-12 15:57 | XMS_ITS | Encounter Summary ---
Author Organization [facility] [place] [address] Care Team Providers Care Laborer Tin Can Name Role Phone Natty Mckinney MD Primary Care Provider [phone] Encounter Details Date Type Department Care Team (Latest Contact Info) Description 10/30/2019 Multidisciplinary [place] [address] Pee Pan MD [facility] [place] [address] Social History Tobacco Use Types Packs/Day Years [...] filedocumented in this encounter Care Teams Laborer Tin Can Relationship Specialty Start Date End Date Natty Mckinney MD [address] [place] [address] PCP - General 10/11/10 documented as of this encounter
--- OUTSIDE RECORDS SUMMARY | 2024-08-12 15:57 | XMS_ITS | Encounter Summary ---
Author Organization [facility] Address [facility] [place] [address] Care Team Providers Care Sheriffs Detective Name Role Phone Natty Mckinney MD Primary Care Provider [phone] Encounter Details Date Type Department Care Team (Late st Contact Info) Description 09/26/2019 [place] [address] Daniele Seals MD [facility] [place] [address] Social History Tobacco Use Types Packs/Day Years [...] MRI results. He can be reached at [phone]. He is aware that Dr. Seals is not in clinic today, but states Dr. Seals can just leave a voicemail. documented in this encounter Plan of Treatment Not on file documented as of this encounter Visit Diagnoses Not on filedocumented in this encounter Care Teams Sheriffs Detective Relationship Specialty Start Date End Date Natty Mckinney MD [address] [place] [address] PCP - General 10/11/10 documented as of this encounter
--- OUTSIDE RECORDS SUMMARY | 2024-08-12 15:57 | XMS_ITS | Encounter Summary ---
Author Organization [facility] Address [address] [place] [address] Care Team Providers Care Anodic Treater Name Role Phone Natty Mckinney MD Primary Care Provider [phone] Encounter Details Date Type Department Care Team (Late st Contact Info) Description 03/24/2024 Lab Requisition [facility] Pathology & Laboratory Medicine - [facility] [address] [place] [address] Outr Resulting Lab, Provider Social History Tobacco [...] 20 - 40 mg/dL 03/25/2024 10:29 EDT [facility] Blood VENOUS BLOOD / Unknown 03/24/2024 12:55 EDT 03/24/2024 22:21 EDT Provider Outr Resulting Lab CHEMISTRY & BLOOD GAS ORDERABLES [facility] [address] [place], [place] [id number] documented in this encounter Visit Diagnoses Not on filedocumented in this encounter Care Teams Anodic Treater Relationship Specialty Start Date End Date Natty Mckinney MD [address] [place] [address] PCP - General 09/29/15 documented as of this encounter
--- OUTSIDE RECORDS SUMMARY | 2024-08-12 15:57 | XMS_ITS | Encounter Summary ---
Author Organization [facility] Address [address] [place] [address] Care Team Providers Care Manpower Development Specialist Manager Name Role Phone Natty Mckinney MD Primary Care Provider [phone] Encounter Details Date Type Department Care Team (Late st Contact Info) Description 01/28/2024 Lab Requisition [facility] Pathology & Laboratory Medicine - [facility] [address] [place] [address] Outr Resulting Lab, Provider Social History Tobacco [...] 20 - 40 mg/dL 01/29/2024 17:02 EDT [facility] Blood VENOUS BLOOD / Unknown 01/28/2024 12:55 EDT 01/28/2024 21:38 EDT Provider Outr Resulting Lab CHEMISTRY & BLOOD GAS ORDERABLES [facility] [address] [place], [place] [address] documented in this encounter Visit Diagnoses Not on filedocumented in this encounter Care Teams Manpower Development Specialist Manager Relationship Specialty Start Date End Date Natty Mckinney MD [address] [place] [address] PCP - General 09/29/15 documented as of this encounter
--- OUTSIDE RECORDS SUMMARY | 2024-08-12 15:57 | XMS_ITS | Encounter Summary ---
Author Organization [facility] [place] [address] Care Team Providers Care Oven Operator Name Role Phone Natty Mckinney MD Primary Care Provider [phone] Encounter Details Date Type Department Care Team (Late st Contact Info) Description 12/02/2019 [place] [address] Daniele Seals MD [facility] [place] [address] Social History Tobacco Use Types Packs/Day Years Used Date Smoking Tobacco: Never Assessed Sex and Gender Information Value Date Recorded Sex Assigned at Not on file Gender Identity Not on file Sexual Orientation Not on file documented as of this encounter Miscellaneous Notes * Telephone Encounter - Nicole Mayer - 12/02/2019 4:[address] Nicholson from [facility] called regarding pt. Pt had CT Prostate BX in 09/2019 - Case discussed at [facility] Board 10/30/19, no appointments have been scheduled to discuss plan with patient. Please Advise or Pt can be reached at [phone] documented in this encounter Plan of Treatment Not on file documented as of this encounter Visit Diagnoses Not on filedocumented in this encounter Care Teams Oven Operator Relationship Specialty Start Date End Date Natty Mckinney MD [address] [place] [address] PCP - General 10/11/10 documented as of this encounter
--- OUTSIDE RECORDS SUMMARY | 2024-08-12 15:57 | XMS_ITS | Encounter Summary ---
Author Organization [facility] [place] [address] Care Team Providers Care Mushroom Laborer Name Role Phone Natty Mckinney MD Primary Care Provider [phone] Encounter Details Date Type Department Care Team (Late st Contact Info) Description 12/03/2019 Telephone Radiation Oncology at [address] [address] Melvi Wise Social History Tobacco [...] on filedocumented in this encounter Care Teams Mushroom Laborer Relationship Specialty Start Date End Date Natty Mckinney MD [address] [place] [address] PCP - General 10/11/10 documented as of this encounter
--- OUTSIDE RECORDS SUMMARY | 2024-08-12 15:57 | XMS_ITS | Encounter Summary ---
Author Organization [facility] Address [address] [place] [address] Care Team Providers Care Staff Development Nurse Name Role Phone Natty Mckinney MD Primary Care Provider [phone] Encounter Details Date Type Department Care Team (Late st Contact Info) Description 02/25/2024 Lab Requisition [facility] Pathology & Laboratory Medicine - [facility] [address] [place] [address] Outr Resulting Lab, Provider Social History Tobacco [...] 20 - 40 mg/dL 02/26/2024 9:26 EDT [facility] Blood VENOUS BLOOD / Unknown 02/25/2024 12:40 EDT 02/25/2024 21:55 EDT Provider Outr Resulting Lab CHEMISTRY & BLOOD GAS ORDERABLES [facility] [address] [place], [place] [address] documented in this encounter Visit Diagnoses Not on filedocumented in this encounter Care Teams Staff Development Nurse Relationship Specialty Start Date End Date Natty Mckinney MD [address] [place] [address] PCP - General 09/29/15 documented as of this encounter
--- OUTSIDE RECORDS SUMMARY | 2024-08-12 15:57 | XMS_ITS | Encounter Summary ---
Author Organization [facility] Address [address] [place] [address] Care Team Providers Care Senior Net Architect Name Role Phone Natty Mckinney MD Primary Care Provider [phone] Encounter Details Date Type Department Care Team (Late st Contact Info) Description 07/30/2023 Lab Requisition [facility] Pathology & Laboratory Medicine - [facility] [address] [place] [address] Outr Resulting Lab, Provider Social History Tobacco [...] 20 - 40 mg/dL 07/31/2023 9:24 EDT [facility] Blood VENOUS BLOOD / Unknown 07/30/2023 14:20 EDT 07/30/2023 21:29 EDT Provider Outr Resulting Lab CHEMISTRY & BLOOD GAS ORDERABLES [facility] [address] [place] [address] documented in this encounter Visit Diagnoses Not on filedocumented in this encounter Care Teams Senior Net Architect Relationship Specialty Start Date End Date Natty Mckinney MD [address] [place] [address] PCP - General 09/29/15 documented as of this encounter
--- OUTSIDE RECORDS SUMMARY | 2024-08-12 15:57 | XMS_ITS | Encounter Summary ---
Author Organization [facility] Address [address] [place] [address] Care Team Providers Care Shoddy Mill Worker Name Role Phone Natty Mckinney MD Primary Care Provider [phone] Encounter Details Date Type Department Care Team (Late st Contact Info) Description 08/27/2023 Lab Requisition [facility] Pathology & Laboratory Medicine - [facility] [address] [place] [address] Outr Resulting Lab, Provider Social History Tobacco [...] 20 - 40 mg/dL 08/28/2023 9:34 EDT [facility] Blood VENOUS BLOOD / Unknown 08/27/2023 13:00 EDT 08/27/2023 21:45 EDT Provider Outr Resulting Lab CHEMISTRY & BLOOD GAS ORDERABLES [facility] [address] [place] [address] documented in this encounter Visit Diagnoses Not on filedocumented in this encounter Care Teams Shoddy Mill Worker Relationship Specialty Start Date End Date Natty Mckinney MD [address] [place] [address] PCP - General 09/29/15 documented as of this encounter
--- OUTSIDE RECORDS SUMMARY | 2024-08-12 15:57 | XMS_ITS | Encounter Summary ---
Author Organization [facility] Address [address] [place] [address] Care Team Providers Care Corn Picker Name Role Phone Natty Mckinney MD Primary Care Provider [phone] Encounter Details Date Type Department Care Team (Late st Contact Info) Description 09/24/2023 Lab Requisition [facility] Pathology & Laboratory Medicine - [facility] [address] [place] [address] Outr Resulting Lab, Provider Social History Tobacco [...] 20 - 40 mg/dL 09/25/2023 10:50 EST [facility] Blood VENOUS BLOOD / Unknown 09/24/2023 13:25 EST 09/24/2023 22:01 EST Provider Outr Resulting Lab CHEMISTRY & BLOOD GAS ORDERABLES [facility] [address] [place] [address] documented in this encounter Visit Diagnoses Not on filedocumented in this encounter Care Teams Corn Picker Relationship Specialty Start Date End Date Natty Mckinney MD [address] [place] [address] PCP - General 09/29/15 documented as of this encounter
--- OUTSIDE RECORDS SUMMARY | 2024-08-12 15:57 | XMS_ITS | Referral Summary ---
Author Organization [facility] Address [address] [place] [address] Care Team Providers Care Gear Lapping Machine Operator Name Role Phone Natty Mckinney MD Primary Care Provider [phone] Encounters Date Type Department Care Team Description 07/07/2024 Lab Requisition [facility] Pathology & Laboratory Medicine - [address] [address] Outr Resulting Lab, Provider from Last 3 [...] naloxone (NARCAN) 4 mg/actuation nasal spray 1 Bandana by nasal route as needed for Opioid [...] Active Ostomy Supplies Use as directed daily. [place] ostomy pouches part #8817 [facility] ([facility]; combo route) route daily. Aquiles wafers part # 9386 Active Active Problems Problem Noted Date Diagnosed Date Vitamin B12 deficiency 01/05/2021 Malaise and fatigue 01/05/2021 Prostate cancer ([facility]) 01/05/2021 Pain of knee joint on movement [...] subsequent encounter 01/05/2021 Syncope 01/05/2021 Ileostomy status ([facility]) 01/05/2021 Chronic abdominal pain 01/05/2021 Crohn's disease ([facility]) 01/05/2021 Social History Tobacco Use Types [...] 20 - 40 mg/dL 07/08/2024 11:30 EDT [facility] Blood VENOUS BLOOD / Unknown 07/07/2024 14:00 EDT 07/07/2024 22:26 EDT Provider Outr Resulting Lab CHEMISTRY & BLOOD GAS ORDERABLES [facility] [address] [place] [address] from Last 3 Months Care Teams Gear Lapping Machine Operator Relationship Specialty Start Date End Date Natty Mckinney MD [address] [place] [address] PCP - General 09/29/15
--- OUTSIDE RECORDS SUMMARY | 2024-08-12 15:57 | XMS_ITS | Encounter Summary ---
Author Organization [facility] Address [address] [place] [address] Care Team Providers Care Relay Dispatcher Name Role Phone Natty Mckinney MD Primary Care Provider [phone] Encounter Details Date Type Department Care Team (Late st Contact Info) Description 10/29/2023 Lab Requisition [facility] Pathology & Laboratory Medicine - [facility] [address] [place] [address] Outr Resulting Lab, Provider Social History Tobacco [...] 20 - 40 mg/dL 10/30/2023 9:39 EST [facility] Blood VENOUS BLOOD / Unknown 10/29/2023 12:55 EST 10/29/2023 21:59 EST Provider Outr Resulting Lab CHEMISTRY & BLOOD GAS ORDERABLES [facility] [address] [place] [address] documented in this encounter Visit Diagnoses Not on filedocumented in this encounter Care Teams Relay Dispatcher Relationship Specialty Start Date End Date Natty Mckinney MD [address] [place] [address] PCP - General 09/29/15 documented as of this encounter
--- OUTSIDE RECORDS SUMMARY | 2024-08-12 15:58 | XMS_ITS | Encounter Summary ---
Author Organization [facility] Address [address] [place] [address] Care Team Providers Care Complex Commercial Litigation Paralegal Name Role Phone Unavailable Primary Care Provider Unavailabl e Encounter Details Date Type Department Care Team (Latest Contact Info) Description 03/09/2003 7:16 EDT - 03/09/2003 11:59 EDT Hospital Encounter [address] [address] Gold Chavez MD Discharge Disposition: Auto Discharge [...]
--- OUTSIDE RECORDS SUMMARY | 2024-08-12 15:58 | XMS_ITS | Encounter Summary ---
Author Organization [facility] Address [address] [place] [address] Care Team Providers Care Promotional Representative Name Role Phone Unavailable Primary Care Provider Adi e Encounter Details Date Type Department Care Team (Late st Contact Info) Description 12/04/2001 Results Only [facility] [address] [place] [address] Yoel Marie, DO [address] [place] [address] Social History Tobacco Use Types [...] ? KRISHAN MONTE ? Accession #: ? [id number] ? : ? 1965 (Age: 36) ??M [...] A2 ?Smaller tissues A3 ?Largest tissue A4 ?Box Office Agent additional skin ([place])/[facility] End of Report [facility] 12/04/2001 12/05/2001 9:3 9 EST Yoel Marie DO PATHOLOGY ORDER MICHAEL [facility] [address] [place] [address] documented in this encounter Visit Diagnoses Not on filedocumented in this encounter
--- OUTSIDE RECORDS SUMMARY | 2024-08-12 15:58 | XMS_ITS | Encounter Summary ---
Author Organization [facility] Address [address] [place] [address] Care Team Providers Care Clam Dredge Boat Captain Name Role Phone Unavailable Primary Care Provider Adi e Encounter Details Date Type Department Care Team (Late st Contact Info) Description 07/10/2003 Results Only [facility] - [facility] conversion [address] [place] [address] Yoel Marie, DO [address] [place] [address] Social History Tobacco Use Types [...] ? KRISHAN MONTE ? Accession #: ? [id number] ? : ? 1965 (Age: 38) ??M [...] Yoel Marie DO PATHOLOGY ORDER MICHAEL [facility] [address] [place] [address] documented in this encounter Visit Diagnoses Not on filedocumented in this encounter
--- OUTSIDE RECORDS SUMMARY | 2024-08-12 15:58 | XMS_ITS | Encounter Summary ---
Author Organization [facility] Address [address] [place] [address] Care Team Providers Care Systems Accountant Name Role Phone Unavailable Primary Care Provider Unavailabl e Encounter Details Date Type Department Care Team (Latest Contact Info) Description 04/20/2003 7:44 EDT - 04/20/2003 11:59 EDT Hospital Encounter [address] [address] Gold Chavez MD Discharge Disposition: Auto Discharge [...]
--- OUTSIDE RECORDS SUMMARY | 2024-08-12 15:58 | XMS_ITS | Encounter Summary ---
Author Organization [facility] Address [address] [place] [address] Care Team Providers Care Aco Coordinator Name Role Phone Unavailable Primary Care Provider Adi e Encounter Details Date Type Department Care Team (Late st Contact Info) Description 03/24/2003 9:32 EDT Hospital Encounter [address] [address] Gold Chavez MD Social History Tobacco Use [...]
--- OUTSIDE RECORDS SUMMARY | 2024-08-12 15:58 | XMS_ITS | Encounter Summary ---
Author Organization [facility] Address [address] [place] [address] Care Team Providers Care Sterile Proc Tech Name Role Phone Unavailable Primary Care Provider Unavailpoly e Encounter Details Date Type Department Care Team (Latest Contact Info) Description 02/23/2003 13:27 EDT Hospital Encounter [facility] - Other [address] [place] [address] Gold Chavez MD Unknown, Provider, Discharge Disposition: [...]
--- OUTSIDE RECORDS SUMMARY | 2024-08-12 15:58 | XMS_ITS | Encounter Summary ---
Author Organization [facility] Address [address] [place] [address] Care Team Providers Care Recreational Sports Director Name Role Phone Natty Mckinney MD Primary Care Provider [phone] Encounter Details Date Type Department Care Team (Late st Contact Info) Description 04/17/2020 Lab Requisition [facility] Pathology & Laboratory Medicine - [address] [id number] Outr Resulting Lab, Provider Social History Tobacco [...] 0.0 - 3.5 ng/mL 04/19/2020 10:28 EDT [facility] Blood VENOUS BLOOD / Unknown 04/16/2020 10:35 EDT 04/18/2020 16:47 EDT Narrative [facility] - 04/19/2020 10:28 EDT NOTE: Serum PSA concentration should not be interpreted as absolute evidence for the presence or absence of malignant disease. Assayed on Siemens ADVIA [employer]aur XPT using chemiluminescent technology.??Values obtained by using different assay methods cannot be used interchangeably. Provider Outr Resulting Lab CHEMISTRY & BLOOD GAS ORDERABLES [facility] [address] [place] [address] documented in this encounter Visit Diagnoses Not on filedocumented in this encounter Care Teams Recreational Sports Director Relationship Specialty Start Date End Date Natty Mckinney MD [address] [place] [address] PCP - General 09/29/15 documented as of this encounter
--- OUTSIDE RECORDS SUMMARY | 2024-08-12 15:58 | XMS_ITS | Encounter Summary ---
Author Organization [facility] Address [address] [place] [address] Care Team Providers Care Zookeeper Name Role Phone Unavailable Primary Care Provider Unavailabl e Encounter Details Date Type Department Care Team (Late st Contact Info) Description 02/23/2003 Results Only *[facility] [address] [place] [address] Gold Chavez MD Social History Tobacco Use [...] & PF4 ORD ERABLES Performing Organization Address [facility] Co de Phone Number [facility] [address] [place] [address] * (ABNORMAL) IRON (02/23/2003 11:57 EDT) Pathologist [facility] Iron 38(L) 70 - 180 ug/dl [facility] 02/23/2003 11:5 7 EDT 02/23/2003 11:58 EDT Gold Chavez MD CHEMISTRY & BLOOD GA S ORDERABLES Performing Organization Address [facility] Co de Phone Number [facility] [address] [place] [address] * (ABNORMAL) IBC (02/23/2003 11:57 EDT) Pathologist [facility] TIBC 499(H) 225 - 425 ug/dl [facility] 02/23/2003 11:5 7 EDT 02/23/2003 11:58 EDT Gold Chavez MD CHEMISTRY & BLOOD GA S ORDERABLES Performing Organization Address [facility] Co de Phone Number [facility] [address] [place] [address] * (ABNORMAL) GGT (02/23/2003 11:57 EDT) Pathologist [facility] GGT 79(H) 15 - 73 U/L [facility] 02/23/2003 11:5 7 EDT 02/23/2003 11:58 EDT Gold Chavez MD CHEMISTRY & BLOOD GA S ORDERABLES Performing Organization Address [facility] Phone Number [facility] [address] [place] [address] * FOLATE (02/23/2003 11:57 EDT) Pathologist [facility] Folate >24.0 ng/mL [facility] Comment: Deficient: ??Less than 3.4 ng/mL Indeterminate: ??3.4-5.4 ng/mL Normal: ??Greater than 5.4 ng/mL Note new reference range. 02/23/2003 11:5 7 EDT 02/23/2003 11:58 EDT Gold Chavez MD CHEMISTRY & BLOOD GA S ORDERABLES Performing Organization Address [facility] Phone Number [facility] [address] [place] [address] * (ABNORMAL) FERRITIN (02/23/2003 11:57 EDT) Pathologist [facility] Ferritin 40(L) 42 - 313 ng/ml [facility] 02/23/2003 11:5 7 EDT 02/23/2003 11:58 EDT Gold Chavez MD CHEMISTRY & BLOOD GA S ORDERABLES Performing Organization Address [facility] de Phone Number [facility] [address] [place] [address] * COMPREHENSIVE METABOLIC PANEL (CMP) (02/23/2003 11:57 EDT) Pathologist [facility] Potassium 4.4 3.5 - 5.0 mEq/L [facility] [...] GA S ORDERABLES [facility] [address] [place] [address] * (ABNORMAL) HEMAGRAM AND DIFFERENTIAL (02/23/2003 11:57 [...] & DNA PROBE ORDERABLES Performing Organization Address [facility] de Phone Number [facility] [address] [place] [address] * (ABNORMAL) VITAMIN B12 (02/23/2003 11:57 EDT) Vitamin B-12 >2000(H) 250 - 1100 pg/ml [facility] 02/23/2003 11:5 7 EDT 02/23/2003 11:58 EDT Gold Chavez MD CHEMISTRY & BLOOD GA S ORDERABLES Performing Organization Address [facility] de Phone Number [facility] [address] [place] [address] documented in this encounter Visit Diagnoses Not on filedocumented in this encounter
--- OUTSIDE RECORDS SUMMARY | 2024-08-12 15:58 | XMS_ITS | Encounter Summary ---
Author Organization [facility] Address [address] [place] [address] Care Team Providers Care Associate Entertainment Editor Name Role Phone Natty Mckinney MD Primary Care Provider [phone] Encounter Details Date Type Department Care Team (Late st Contact Info) Description 01/04/2021 Abstract [facility] Rheumatology [address] [place] [address] Ashley Massey MD [address] [facility] [address] [place] [address] Social History Tobacco Use Types [...] route) route daily. Aquiles wafers part # 5110 Ostomy Supplies Use as directed daily. Aquiles ostomy pouches part #1902 methadone (DOLOPHINE) 10 mg tablet Take 10 [...] naloxone (NARCAN) 4 mg/actuation nasal spray 1 [place] by nasal route as needed for Opioid [...] hours. added in this encounter Care Teams Associate Entertainment Editor Relationship Specialty Start Date End Date Natty Mckinney MD [address] [place] [address] PCP - General 09/29/15 documented as of this encounter
--- OUTSIDE RECORDS SUMMARY | 2024-08-12 15:58 | XMS_ITS | Encounter Summary ---
Author Organization [facility] Address [address] [place] [address] Care Team Providers Care Change Release Manager Name Role Phone Unavailable Primary Care Provider Adi e Encounter Details Date Type Department Care Team (Late st Contact Info) Description 08/11/2003 Results Only [facility] - Maple conversion [address] [place] [address] Yoel Marie, DO [address] [address] [address] [address] [place] [address] Social History Tobacco Use Types [...] ? KRISHAN MONTE ? Accession #: ? [id number] ? : ? 1965 (Age: 38) ??M [...] specimen is entirely submitted as (B). ??(Devin King/[facility] End of Report [facility] 08/11/2003 08/12/2003 8:5 9 EDT Yoel Marie DO PATHOLOGY ORDER MICHAEL [facility] [address] [place] [address] documented in this encounter Visit Diagnoses Not on filedocumented in this encounter
--- OUTSIDE RECORDS SUMMARY | 2024-08-12 15:58 | XMS_ITS | Encounter Summary ---
Author Organization [facility] Address [address] [place] [address] Care Team Providers Care Investment Counselor Name Role Phone Natty Mckinney MD Primary Care Provider [phone] Encounter Details Date Type Department Care Team (Late st Contact Info) Description 12/22/2020 Lab Requisition [facility] Pathology & Laboratory Medicine - [facility] [address] [place], [place] [address] Outr Resulting Lab, Provider Social History Tobacco [...] 0.0 - 3.5 ng/mL 12/22/2020 17:47 EST [facility] Blood VENOUS BLOOD / Unknown 12/21/2020 13:54 EST 12/22/2020 16:13 EST Narrative [facility] - 12/22/2020 17:47 EST NOTE: Serum PSA concentration should not be interpreted as absolute evidence for the presence or absence of malignant disease. Assayed on Siemens ADVIA [employer] XPT using chemiluminescent technology.??Values obtained by using different assay methods cannot be used interchangeably. Provider Outr Resulting Lab CHEMISTRY & BLOOD GAS ORDERABLES [facility] [address] [place] [address] documented in this encounter Visit Diagnoses Not on filedocumented in this encounter Care Teams Investment Counselor Relationship Specialty Start Date End Date Natty Mckinney MD [address] [place] [id number] PCP - General 09/29/15 documented as of this encounter
== END 2024-08-12 16:12 ==
LOC: DI 15:52
PROVIDERS: PCP Family Medicine; Visit Provider Family Medicine
DX: M25.552 Pain in left hip (principal)
CPT/HCPCS: 73502

== ENCOUNTER 2024-08-15 01:34 | Outpatient (RCR) | payer MEDICARE, SELFPAY ==
--- OUTSIDE RECORDS SUMMARY | 2024-07-25 01:02 | XMS_ITS | Encounter Summary ---
Author Organization [place] [id number] Care Team Providers Care Hyperbaric Tech Name Role Phone Natty Mckinney MD Primary Care Provider [phone] Reason for Referral * Consultation (Routine) - Closed Specialty Diagnoses / Procedures Referred By Contac t Referred To Contact Gastroenterology Diagnoses Crohn's disease with complication, unspecified gastrointestinal tract location Abdominal pain, unspecified abdominal location Weight loss, unintentional IBD- crohns disease/ abd pain/ wt loss Natty Mckinney MD [address] [place] [address] [facility] [address] [place] [id number] Referral ID Status Reason Start Date Expiration Date V isits Requested Visits Authorized [id number] Closed Consult, Test & Treat PCP Updated and/or Approved 01/16/2023 01/16/2024 6 6 Encounter Details Date Type Department Care Team (Latest Contact Info) Description 01/16/2023 Transcribe Orders eDH Incoming Referrals [phone] Natty Mckinney MD [address] [place], [place] [id number] Crohn's disease with complication, unspecified gastrointestinal tract [...] weight documented in this encounter Care Teams Hyperbaric Tech Relationship Specialty Start Date End Date Natty Mckinney MD [address] [place] [address] PCP - General 10/11/10 documented as of this encounter
--- OUTSIDE RECORDS SUMMARY | 2024-07-25 01:02 | XMS_ITS | Encounter Summary ---
Author Organization [facility] [place] [address] Care Team Providers Care Mechanical Ordnance Assembler Name Role Phone Natty Mckinney MD Primary Care Provider [phone] Encounter Details Date Type Department Care Team (Late st Contact Info) Description 03/28/2022 Telephone Radiation Oncology at [address] [address] Rona Hui Social History Tobacco Use Types Packs/Day Years [...] on filedocumented in this encounter Care Teams Mechanical Ordnance Assembler Relationship Specialty Start Date End Date Natty Mckinney MD [address] [place] [address] PCP - General 10/11/10 documented as of this encounter
--- OUTSIDE RECORDS SUMMARY | 2024-07-25 01:02 | XMS_ITS | Encounter Summary ---
Author Organization [facility] [place] [address] Care Team Providers Care Emergency Veterinarian Name Role Phone Natty Mckinney MD Primary Care Provider [phone] Encounter Details Date Type Department Care Team (Late st Contact Info) Description 09/22/2022 Ancillary Procedure [place] [id number] Natty Mckinney MD [address] [place] [address] Social History Tobacco Use Types Packs/Day Years [...] IMG FILM LIBRARY ORD ERABLES [facility] [place], [place] documented in this encounter Visit Diagnoses Not on filedocumented in this encounter Care Teams Emergency Veterinarian Relationship Specialty Start Date End Date Natty Mckinney MD [address] [place] [address] PCP - General 10/11/10 documented as of this encounter
--- OUTSIDE RECORDS SUMMARY | 2024-07-25 01:02 | XMS_ITS | Encounter Summary ---
Author Organization [facility] [place] [address] Care Team Providers Care Barytes Grinder Name Role Phone Natty Mckinney MD Primary Care Provider [phone] Encounter Details Date Type Department Care Team (Late st Contact Info) Description 09/12/2023 Orders Only Radiation Oncology at [address] [phone] Monica Bonds PA [facility] DR HEMATOLOGY [place] [address] Malignant neoplasm of prostate Social History Tobacco [...] prostate documented in this encounter Care Teams Barytes Grinder Relationship Specialty Start Date End Date Natty Mckinney MD [address] [place] [address] PCP - General 10/11/10 documented as of this encounter
--- OUTSIDE RECORDS SUMMARY | 2024-07-25 01:02 | XMS_ITS | Encounter Summary ---
Author Organization [facility] [place] [address] Care Team Providers Care Bar Examiner Name Role Phone Natty Mckinney MD Primary Care Provider [phone] Encounter Details Date Type Department Care Team (Late st Contact Info) Description 12/25/2023 Telephone Hematology/Oncology at [address] [address] Rona Hui Social History Tobacco [...] on filedocumented in this encounter Care Teams Bar Examiner Relationship Specialty Start Date End Date Natty Mckinney MD [address] [place] [address] PCP - General 10/11/10 documented as of this encounter
--- OUTSIDE RECORDS SUMMARY | 2024-07-25 01:02 | XMS_ITS | Encounter Summary ---
Author Organization [facility] [place] [address] Care Team Providers Care Furniture Servicer Name Role Phone Natty Mckinney MD Primary Care Provider [phone] Encounter Details Date Type Department Care Team (Late st Contact Info) Description 04/06/2021 Telephone Radiation Oncology at [address] [phone] Shweta Hendrix MAT MAN [address] [place] [address] DR RADIATION ONCOLOGY [place], [place] [id number] Social History Tobacco Use Types Packs/Day Years [...] bone scan and the secondread done by [facility] radiology. She is appreciative of the results. [...] on filedocumented in this encounter Care Teams Furniture Servicer Relationship Specialty Start Date End Date Natty Mckinney MD [address] [place] [address] PCP - General 10/11/10 documented as of this encounter
--- OUTSIDE RECORDS SUMMARY | 2024-07-25 01:02 | XMS_ITS | Encounter Summary ---
Author Organization [facility] [place] [address] Care Team Providers Care Vp Site Name Role Phone Natty Mckinney MD Primary Care Provider [phone] Encounter Details Date Type Department Care Team (Late st Contact Info) Description 07/08/2021 Orders [place] [address] Natty Lawton APRN [facility] [place] [address] Malignant neoplasm of prostate (Primary Dx) Social [...] Primary documented in this encounter Care Teams Vp Site Relationship Specialty Start Date End Date Natty Mckinney MD [address] [place] [address] PCP - General 10/11/10 documented as of this encounter
--- OUTSIDE RECORDS SUMMARY | 2024-07-25 01:02 | XMS_ITS | Encounter Summary ---
Author Organization [facility] Address [facility] [place] [address] Care Team Providers Care Estimating Engineer Name Role Phone Natty Mckinney MD Primary Care Provider [phone] Encounter Details Date Type Department Care Team (Latest Contact Info) Description 01/17/2022 9:00 AM EST Ext Surgery or Single Event [facility] [address] [facility] [place] [address] Cornelius Sandoval MD [facility] [place] [place] [address] Dyspnea, unspecified type Social History Tobacco Use [...] type documented in this encounter Care Teams Estimating Engineer Relationship Specialty Start Date End Date Natty Mckinney MD [address] [place] [address] PCP - General 10/11/10 documented as of this encounter
--- OUTSIDE RECORDS SUMMARY | 2024-07-25 01:02 | XMS_ITS | Encounter Summary ---
Author Organization [facility] Address [facility] [place] [address] Care Team Providers Care Map Mounter Name Role Phone Natty Mckinney MD Primary Care Provider [phone] Encounter Details Date Type Department Care Team [...] on filedocumented in this encounter Care Teams Map Mounter Relationship Specialty Start Date End Date Natty Mckinney MD [address] [place] [address] PCP - General 10/11/10 documented as of this encounter
--- OUTSIDE RECORDS SUMMARY | 2024-07-25 01:02 | XMS_ITS | Encounter Summary ---
Author Organization [facility] Address [facility] [place] [address] Care Team Providers Care Manufacturing Technician Name Role Phone Natty Mckinney MD Primary Care Provider [phone] Reason for Referral * Consultation (Routine) - Canceled Specialty Diagnoses / Procedures Referred By Contangela guerrero Referred To Contact Internal Medicine Diagnoses Weight loss, unintentional Crohn's disease with complication, unspecified gastrointestinal tract location Natty Mckinney MD [address] [place] [address] [facility] Internal Medicine [address] [place] [address] Referral ID Status Reason Start Date Expiration Date Visits Requested Visits Authorized [id number] Canceled Continuity of Care PCP Updated and/or Approved 01/16/2023 01/16/2024 12 12 Encounter Details Date Type Department Care Team (Latest Contact Info) Description 01/16/2023 Transcribe Orders eD Incoming Referrals [phone] Natty Mckinney MD [address] [place] [address] Weight loss, unintentional; Crohn's disease [...] location documented in this encounter Care Teams Manufacturing Technician Relationship Specialty Start Date End Date Natty Mckinney MD [address] [place] [address] PCP - General 10/11/10 documented as of this encounter
--- OUTSIDE RECORDS SUMMARY | 2024-07-25 01:02 | XMS_ITS | Clinical Summary ---
Author Organization [facility] Address [facility] [place] [address] Care Team Providers Care Learning Specialist Name Role Phone Natty Mckinney MD Primary Care Provider [phone] Allergies No known active allergies Medications Medication [...] Apply topically. 02/07/2021 Active naloxone 4 mg/actuation [place], Non-Aerosol by Nasal route. 02/07/2021 Active Ostomy [...] 2) 2014 Advance Directive 2019 Covid-19 Vaccine ( season) 2024 Influenza (Flu) vaccine (1 o f 1 [...] capacity to make decision: Yes Care Teams Learning Specialist Relationship Specialty Start Date End Date Natty Mckinney MD [address] [place] [address] PCP - General 10/11/10
--- OUTSIDE RECORDS SUMMARY | 2024-07-25 01:02 | XMS_ITS | Encounter Summary ---
Author Organization [facility] Address [facility] [place] [address] Care Team Providers Care Heat Transfer Technician Name Role Phone Natty Mckinney MD Primary Care Provider [phone] Reason for Referral * Consultation (Routine) - Closed Specialty Diagnoses / Procedures Referred By Claire guerrero Referred To Contact Orthopaedics Diagnoses Osteoarthritis of carpometacarpal (CMC) joint of thumb, unspecified laterality, unspecified osteoarthritis type Ulnar abutment syndrome of both wrists Ector Irizarry MD [address] [place] [address] Willie Rivas MD [facility] [place] [address] Referral ID Status Reason Start Date Expiration Date V isits Requested Visits Authorized [id number] Closed Consult, Test & Treat PCP Updated and/or Approved 02/08/2022 02/08/2023 6 6 Encounter Details Date Type Department Care Team (Latest Contact Info) Description 02/08/2022 Transcribe Orders eDH Incoming Referrals [phone] Ector Irizarry MD [address] [place], [place] [id number] Osteoarthritis of carpometacarpal (CMC) joint of thumb, [...] wrists documented in this encounter Care Teams Heat Transfer Technician Relationship Specialty Start Date End Date Natty Mckinney MD [address] [place] [address] PCP - General 10/11/10 documented as of this encounter
--- OUTSIDE RECORDS SUMMARY | 2024-07-25 01:02 | XMS_ITS | Encounter Summary ---
Author Organization [facility] [place] [address] Care Team Providers Care Supervisor Cell Operation Name Role Phone Natty Mckinney MD Primary Care Provider [phone] Encounter Details Date Type Department Care Team (Latest Contact Info) Description 10/10/2022 12:20 PM EST Ancillary Procedure [place] [address] Natty Lawton, AMMONIA STILL OPERATOR [facility] [place] [address] Malignant neoplasm of prostate Social History Tobacco [...] who have questions please contact the health patient care assistant that requested your imaging first. ? Narrative 10/11/2022 2:55 PM EST EXAMINATION: REQUEST FOR 2ND READ CT ABDOMEN AND PELVIS CLINICAL HISTORY: sclerotic bone lesion L iliac. Report from [facility] inconsistent with one comment showing lesion more prominent in LAST READ and then impression with enlarging sclerotic lesion. Possible need for bone bx. PSA going down. TECHNIQUE: Reinterpretation of outside CT of the abdomen and pelvis performed with intravenous contrast at [facility]. Oral contrast was also administered. Arterial [...] Resulting Agency Comment Unexpected Finding Natty Lawton AMMONIA STILL OPERATOR IMG OUTSIDE INTERPRE TATION ORDERABLES documented in this encounter Visit Diagnoses Diagnosis Malignant neoplasm of prostate documented in this encounter Care Teams Supervisor Cell Operation Relationship Specialty Start Date End Date Natty Mckinney MD [address] [place] [address] PCP - General 10/11/10 documented as of this encounter
--- OUTSIDE RECORDS SUMMARY | 2024-07-25 01:02 | XMS_ITS | Encounter Summary ---
Author Organization [facility] [place] [address] Care Team Providers Care Library Acquisitions Technician Name Role Phone Natty Mckinney MD Primary Care Provider [phone] Encounter Details Date Type Department Care Team (Late st Contact Info) Description 12/10/2023 Telephone Radiation Oncology at [address] [address] Rona Hui Social History Tobacco [...] to contact us to reschedule at the [phone] number. documented in this encounter Plan of Treatment Not on file documented as of this encounter Visit Diagnoses Not on filedocumented in this encounter Care Teams Library Acquisitions Technician Relationship Specialty Start Date End Date Natty Mckinney MD [address] [place], [place] [address] PCP - General 10/11/10 documented as of this encounter
--- OUTSIDE RECORDS SUMMARY | 2024-07-25 01:02 | XMS_ITS | Encounter Summary ---
Author Organization [facility] [place] [address] Care Team Providers Care Peoplesoft Business Analyst Name Role Phone Natty Mckinney MD Primary Care Provider [phone] Encounter Details Date Type Department Care Team (Late st Contact Info) Description 10/11/2022 Telephone [place] [address] Natty Lawton REPORTS DEVELOPER [facility] [place] [address] Social History Tobacco Use Types Packs/Day Years [...] GI evaluating his liver dz out of [facility]. He does not know the GI doctor's name. I have forwarded the imaging second read (Through Arun Lyle our [facility] attendance secretary) to Krishan's PCP. I tried to call her office again today but it is currently closed. However, Kyle will fax the report to her attn. Narrative & Impression EXAMINATION: REQUEST FOR 2ND READ CT ABDOMEN AND PELVIS ?? CLINICAL HISTORY: sclerotic bone lesion L iliac. Report from [facility] inconsistent with one comment showing lesion more prominent in LAST READ and then impression with enlarging sclerotic lesion. Possible need for bone bx. PSA going down. ?? TECHNIQUE: Reinterpretation of outside CT of the abdomen and pelvis performed with intravenous contrast at [facility]. Oral contrast was also administered. Arterial [...] who have questions please contact the health managed care manager that requested your imaging first. Electronically signed by: King Victoria MD, [facility] ([phone]), at 10/11/2022 2:55 PM documented in this encounter Plan of Treatment Not on file documented as of this encounter Visit Diagnoses Diagnosis Malignant neoplasm of prostate- Primary documented in this encounter Care Teams Peoplesoft Business Analyst Relationship Specialty Start Date End Date Natty Mckinney MD [address] [place] [address] PCP - General 10/11/10 documented as of this encounter
--- OUTSIDE RECORDS SUMMARY | 2024-07-25 01:02 | XMS_ITS | Encounter Summary ---
Author Organization [facility] [place] [address] Care Team Providers Care Pouch Maker Name Role Phone Natty Mckinney MD Primary Care Provider [phone] Encounter Details Date Type Department Care Team (Late st Contact Info) Description 09/28/2022 1:00 PM EST Office Visit Radiation Oncology at [address] [address] Natty Lawton, VARNISH INSPECTOR [facility] [place] [address] Malignant neoplasm of prostate (Primary Dx) Social [...] this encounter Progress Notes * Natty Lawton, VARNISH INSPECTOR - 09/28/2022 1:00 PM ESTSummary: 57 year old M with low- risk prostate cancer (cTx, PSA 7.2, Gl 6). Compl SBRT 03/19/20 No ADT Images from the original note were not included. [facility] [place] [address] Phone: RADIATION ONCOLOGY FOLLOW UP NOTE Date [...] Start Date End Date 03/10/20 03/19/20 ?? FLITCH HANGER TREATMENT MANCILLA: ?? Interim HPI: 04/07/21 second read bone scan: FADUMO, no osseous mets. ?? Medications 03/22/22 9684 Medication Sig Taking? celecoxib (CeleBREX) 200 mg [...] % Gel Apply topically. naloxone 4 mg/actuation [place], Non-Aerosol by Nasal route. Ostomy Supplies Misc [...] OTHER 10/08/2019 CT Guided Biopsy Other 10/08/2019 [facility] RAD CAT SCAN Family History Problem [...] with his PCP who is based in [facility] system. She follows his vit and mineral [...] the radiation therapy/prostate cancer Natty Lawton MSN, VARNISH INSPECTOR, RUBBER FACTORY WORKER-C Nurse Practitioner Radiation Oncology documented in this encounter Plan of Treatment Not on file documented as of this encounter Visit Diagnoses Diagnosis Malignant neoplasm of prostate- Primary documented in this encounter Care Teams Pouch Maker Relationship Specialty Start Date End Date Natty Mckinney MD [address] [place] [address] PCP - General 10/11/10 documented as of this encounter
--- OUTSIDE RECORDS SUMMARY | 2024-07-25 01:02 | XMS_ITS | Encounter Summary ---
Author Organization [facility] Address [facility] [place] [address] Care Team Providers Care Veterinary Surgery Technician Name Role Phone Natty Mckinney MD Primary Care Provider [phone] Reason for Visit * Reason Comments Establish Care B OA of CMC joint * Consultation (Routine) - Closed Specialty Diagnoses / Procedures Referred By Contac t Referred To Contact Orthopaedics Diagnoses Osteoarthritis of carpometacarpal (CMC) joint of thumb, unspecified laterality, unspecified osteoarthritis type Ulnar abutment syndrome of both wrists Ector Irizarry MD [address] [place] [address] Willie Rivas MD [facility] [place] [address] Referral ID Status Reason Start Date Expiration Date V isits Requested Visits Authorized [id number] Closed Consult, Test & Treat PCP Updated and/or Approved 02/08/2022 02/08/2023 6 6 Encounter Details Date Type Department Care Team (Latest Contact Info) Description 03/22/2022 1:15 PM EDT Office [place] [address] Willie Rivas MD [facility] ORTHOPAEDIC SURGERY [place], [place] [id number] Primary osteoarthritis of both first carpometacarpal joints [...] basal joint fluoroscopically guided steroid injections in [place] should the patient decide to move forth [...] hand documented in this encounter Care Teams Veterinary Surgery Technician Relationship Specialty Start Date End Date Natty Mckinney MD [address] [place] [address] PCP - General 10/11/10 documented as of this encounter
--- OUTSIDE RECORDS SUMMARY | 2024-07-25 01:02 | XMS_ITS | Encounter Summary ---
Author Organization [facility] [place] [address] Care Team Providers Care School Traffic Supervisor Name Role Phone Natty Mckinney MD Primary Care Provider [phone] Encounter Details Date Type Department Care Team (Late st Contact Info) Description 12/04/2023 Telephone Radiation Oncology at [address] [address] Rona Hui Social History Tobacco [...] him a voicemail to call back at [phone]. documented in this encounter Plan of Treatment Not on file documented as of this encounter Visit Diagnoses Not on filedocumented in this encounter Care Teams School Traffic Supervisor Relationship Specialty Start Date End Date Natty Mckinney MD [address] [place] [address] PCP - General 10/11/10 documented as of this encounter
--- OUTSIDE RECORDS SUMMARY | 2024-07-25 01:02 | XMS_ITS | Encounter Summary ---
Author Organization [facility] [place] [address] Care Team Providers Care Tank House Operator Name Role Phone Natty Mckinney MD Primary Care Provider [phone] Encounter Details Date Type Department Care Team (Late st Contact Info) Description 09/22/2021 11:00 AM EDT Office Visit Radiation Oncology at [address] [address] Natty Lawton, METAL LOADER [facility] [place] [address] Malignant neoplasm of prostate (Primary Dx) Social [...] from the original note were not included. [facility] [place] [address] Phone: RADIATION ONCOLOGY FOLLOW UP NOTE Date [...] Start Date End Date 03/10/20 03/19/20 ?? HOME CARE MANAGER RN TREATMENT MANCILLA: ?? Interim HPI: 04/07/21 second read bone scan /Shweta Hendrix notes Call to Dr Lopes patient's PCP to review the results of patient's recent bone scan and the secondread done by [facility] radiology. He is appreciative of the results. [...] THREE TIMES A DAY naloxone 4 mg/actuation [place], Non-Aerosol by Nasal route. nicotine (NICODERM CQ) [...] OTHER 10/08/2019 CT Guided Biopsy Other 10/08/2019 [facility] RAD CAT SCAN Family History Problem [...] the radiation therapy/prostate cancer Natty Lawton MSN, METAL LOADER, SECONDARY SCHOOL TEACHER LIBRARIAN-C Nurse Practitioner Radiation Oncology documented in this encounter Plan of Treatment Not on file documented as of this encounter Visit Diagnoses Diagnosis Malignant neoplasm of prostate- Primary documented in this encounter Care Teams Tank House Operator Relationship Specialty Start Date End Date Natty Mckinney MD [address] [place] [address] PCP - General 10/11/10 documented as of this encounter
--- OUTSIDE RECORDS SUMMARY | 2024-07-25 01:02 | XMS_ITS | Encounter Summary ---
Author Organization [facility] [place] [address] Care Team Providers Care Economic Development Manager Name Role Phone Natty Mckinney MD Primary Care Provider [phone] Encounter Details Date Type Department Care Team (Late st Contact Info) Description 10/10/2022 Telephone [place] [address] Natty Lawton APRN [facility] DR [place] [address] Social History Tobacco Use Types Packs/Day Years [...] in Pee's L hip. The report from [facility] is inaccurate and states on one [...] who have questions please contact the health care manager that requested your imaging first. ? Electronically signed by: King Victoria MD, [facility] ([phone]), at 10/11/2022 2:55 PM Narrative 10/11/2022 2:55 PM EST EXAMINATION: REQUEST FOR 2ND READ CT ABDOMEN AND PELVIS CLINICAL HISTORY: sclerotic bone lesion L iliac. Report from [facility] inconsistent with one comment showing lesion [...] prostate documented in this encounter Care Teams Economic Development Manager Relationship Specialty Start Date End Date Natty Mckinney MD [address] [place] [address] PCP - General 10/11/10 documented as of this encounter
--- OUTSIDE RECORDS SUMMARY | 2024-07-25 01:03 | XMS_ITS | Encounter Summary ---
Author Organization [facility] Address [facility] [place] [address] Care Team Providers Care Service Or Work Dispatcher Name Role Phone Natty Mckinney MD Primary Care Provider [phone] Encounter Details Date Type Department Care Team (Late st Contact Info) Description 10/01/2019 [place] [address] Daniele Seals MD [facility] [address] Social History Tobacco Use Types Packs/Day Years [...] filedocumented in this encounter Care Teams Service Or Work Dispatcher Relationship Specialty Start Date End Date Natty Mckinney MD [address] [place] [address] PCP - General 10/11/10 documented as of this encounter
--- OUTSIDE RECORDS SUMMARY | 2024-07-25 01:03 | XMS_ITS | Encounter Summary ---
Author Organization [facility] [place] [address] Care Team Providers Care Adjunct Instructor Name Role Phone Natty Mckinney MD Primary Care Provider [phone] Encounter Details Date Type Department Care Team (Late st Contact Info) Description 04/08/2020 Notes Only Radiation Oncology at [address] [phone] Santiago Arroyo MD [address] [place] [address] DR RADIATION ONCOLOGY [place], [place] [id number] Social History Tobacco Use Types Packs/Day Years [...] Summary Santiago Arroyo MD, MS Radiation Oncology [facility] [phone] (paging trackmobile operator) Pager #[phone] PATIENT IDENTIFICATION ?? Name Krishan Monte Date [...] Start Date End Date 03/10/20 03/19/20 ?? TOWER DIRECTOR TREATMENT FIERRO: SPECIAL TECHNICAL CONSIDERATIONS: The [...] FOLLOWUP: Follow-up visit with Radiation Oncology in [facility] is scheduled for 04/29/20 for clinical symptom check; he has received instructions to call this office or seek the help of the local emergency room if any further problems should arise prior to followup. documented in this encounter Plan of Treatment Not on file documented as of this encounter Visit Diagnoses Not on filedocumented in this encounter Care Teams Adjunct Instructor Relationship Specialty Start Date End Date Natty Mckinney MD [address] [place] [address] PCP - General 10/11/10 documented as of this encounter
--- OUTSIDE RECORDS SUMMARY | 2024-07-25 01:03 | XMS_ITS | Encounter Summary ---
Author Organization [facility] [place] [address] Care Team Providers Care Strike Plate Attacher Name Role Phone Natty Mckinney MD Primary Care Provider [phone] Encounter Details Date Type Department Care Team (Late st Contact Info) Description 03/14/2020 Telephone Radiation Oncology at [address] [phone] Arun Lyle Social History Tobacco [...] on filedocumented in this encounter Care Teams Strike Plate Attacher Relationship Specialty Start Date End Date Natty Mckinney MD [address] [place] [address] PCP - General 10/11/10 documented as of this encounter
--- OUTSIDE RECORDS SUMMARY | 2024-07-25 01:03 | XMS_ITS | Encounter Summary ---
Author Organization [facility] Address [facility] [place] [address] Care Team Providers Care Skiver Counter Name Role Phone Natty Mckinney MD Primary Care Provider [phone] Encounter Details Date Type Department Care Team (Late st Contact Info) Description 10/14/2019 [place] [address] Daniele Seals MD [facility] [place] [address] Social History Tobacco Use Types Packs/Day Years [...] on filedocumented in this encounter Care Teams Skiver Counter Relationship Specialty Start Date End Date Natty Mckinney MD [address] [place], [place] [address] PCP - General 10/11/10 documented as of this encounter
--- OUTSIDE RECORDS SUMMARY | 2024-07-25 01:03 | XMS_ITS | Encounter Summary ---
Author Organization [facility] [place] [address] Care Team Providers Care Senior It Business Analyst Name Role Phone Natty Mckinney MD Primary Care Provider [phone] Reason for Referral * Diagnostic Test (Routine) - Closed Specialty Diagnoses / Procedures Referred By Claire guerrero Referred To Contact Radiology Diagnoses Elevated PSA Procedures CT Guided Biopsy Other Daniele Seals MD [facility] [address] [facility] [place] [address] Referral ID Status Reason Start Date Expiration Date V isits Requested Visits Authorized [id number] Closed Specialty Service Requested 09/26/2019 09/25/2020 1 1 Encounter Details Date Type Department Care Team (Late st Contact Info) Description 09/26/2019 [place] [address] Daneile Seals MD [facility] [place] [address] Elevated PSA Social History Tobacco Use Types [...] guided TP biopsy or refer him to [place] where there are a few folks doing [...] Prostate was localized with CT, patient prone. ??[place], mid and basal sites located on right and left. After sterile preparation of the overlying skin, 7 cc 1% lidocaine SQ was administered for anesthesia, and a 17 ga needle guide was advanced under CT guidance into the mass. The 18 ga biopsy gun was advanced coaxially and specimen obtained x 1-2 at each site and submitted individually labelled ??to pathology. ??Flat[place] were removed and hemostasis obtained by manual [...] (PSA) documented in this encounter Care Teams Senior It Business Analyst Relationship Specialty Start Date End Date Natty Mckinney MD [address] [place] [address] PCP - General 10/11/10 documented as of this encounter
--- OUTSIDE RECORDS SUMMARY | 2024-07-25 01:03 | XMS_ITS | Encounter Summary ---
Author Organization [facility] Address [facility] [place] [address] Care Team Providers Care Prefabricated Houses Trimmer Name Role Phone Natty Mckinney MD Primary Care Provider Reason for Referral * Consultation (Routine) - Closed Specialty Diagnoses / Procedures Referred By Claire guerrero Referred To Contact Radiation Oncology Diagnoses Malignant neoplasm of prostate Procedures Simulation for Radiation Therapy Planning Santiago Arroyo MD [address] [place] [address] [place] [address] [facility] Rad Onc Office [address] [place] [phone] Referral ID Status Reason Start Date Expiration Date V isits Requested Visits Authorized [id number] Closed Consult, Test & Treat 12/22/2019 12/21/2020 1 1 Reason for Visit * Consultation (Routine) - Closed Specialty Diagnoses / Procedures Referred By Claire guerrero Referred To Contact Radiation Oncology Diagnoses Malignant neoplasm of prostate Daniele Seals MD [facility] [place] [address] [facility] Rad Onc Treatment [address] [place] [phone] Referral ID Status Reason Start Date Expiration Date V isits Requested Visits Authorized [id number] Closed Consult, Test & Treat 12/03/2019 12/02/2020 1 1 Encounter Details Date Type Department Care Team (Late st Contact Info) Description 12/22/2019 9:00 AM EST Office Visit Radiation Oncology at [address] [place] [address] Santiago Arroyo MD [address] [place] [address] DR RADIATION ONCOLOGY [place], [place] [id number] Malignant neoplasm of prostate Social History Tobacco [...] your prostate cancer looks under the microscope). Gibson scores for cancer range from 6-10, and [...] refer you to the Surveillance Clinic at [facility], which is run by our [...] is for you to visit radiology at [facility] again, where they could place [...] a prostate MRI which we do at [facility], that allows us to better [...] within 4-6 weeks of completion radiation. 6. Mud Temperer Complications: These are more worrisome and are [...] for urination). There may be a slow, skilled nursing decrease in your sexual function as well, [...] do not hesitate to call me at [phone] with any other questions or concerns you have. IfI am not here, one of our radiation oncology nurses can assist you or help you get in touch with me. A Radiation Oncology doctor is also day habilitation supervisor after our normal hours and on weekends for urgent questions or concerns related to radiation treatments that can not wait until normal business hours. To reach the on-call doctor after-hours, just call and have the electric power machine operator page the Radiation Oncologist day habilitation supervisor. And, as always, if you experience any [...] injury 7. Uncontrollable bleeding Santiago Barbosa MD Recruiting Consultanthealth care coach Radiation Oncology [facility] documented in this encounter Progress Notes * Santiago Arroyo MD - 12/22/2019 9:00 AM EST Images from the original note were not included. Radiation Oncology Prostate Cancer Consult Note Santiago Arroyo MD, MS [facility] [phone] PATIENT IDENTIFICATION: PATIENT NAME: Krishan Monte DATE OF : 1965 REFERRING PROVIDER: Daniele Seals MD [facility] [place] [address] REASON FOR CONSULTATION : Cancer Staging Malignant [...] Release(E.C.) daily. 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 In the skilled nursing, I explained there is an approximately 2% [...] candidate for any currently open trials at [facility] given his surgically absence rectum. [...] anticipate 5 fractions to be delivered in [facility]. 4. Fiducial maker placement, CT simulation to be scheduled TIME ATTESTATION: At least 45 minutes of this 60 minute visit was spent with the patient [id number] reviewing his interval medical history and answering [...] On disability since 2002 . 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 See [facility] social assessment information entered. Support Systems: Lives alone. Accompanied by friend, Nancy Barriers to treatment: none Referrals/Interventions: structural layout worker on day per routine. RADIATION SPECIFIC [...] prostate documented in this encounter Care Teams Prefabricated Houses Trimmer Relationship Specialty Start Date End Date Natty Mckinney MD [address] [place] [address] PCP - General 10/11/10 documented as of this encounter
--- OUTSIDE RECORDS SUMMARY | 2024-07-25 01:03 | XMS_ITS | Encounter Summary ---
Author Organization [facility] [place] [address] Care Team Providers Care Screening Representative Name Role Phone Natty Mckinney MD Primary Care Provider Encounter Details Date Type Department Care Team (Latest Contact Info) Description 10/30/2019 Multidisciplinary Ca re [place] [address] Pee Pan MD [facility] [place] [address] Social History Tobacco Use Types Packs/Day Years [...] on filedocumented in this encounter Care Teams Screening Representative Relationship Specialty Start Date End Date Natty Mckinney MD [address] [place] [address] PCP - General 10/11/10 documented as of this encounter
--- OUTSIDE RECORDS SUMMARY | 2024-07-25 01:03 | XMS_ITS | Encounter Summary ---
Author Organization [facility] [place] [address] Care Team Providers Care Earth Science Faculty Member Name Role Phone Natty Mckinney MD Primary Care Provider Encounter Details Date Type Department Care Team (Latest Contact Info) Description 03/19/2020 11:15 AM EDT Procedure visit Radiation Oncology at [address] [address] Martínez Johnson MD [facility] [place] [address] Malignant neoplasm of prostate Social History Tobacco [...] upon arrival to clinic by Edwige Vargas METAL PATTERN MAKER Resp 16 Wt 70.7 kg (155 lb [...] prostate documented in this encounter Care Teams Earth Science Faculty Member Relationship Specialty Start Date End Date Natty Mckinney MD [address] [place] [address] PCP - General 10/11/10 documented as of this encounter
--- OUTSIDE RECORDS SUMMARY | 2024-07-25 01:03 | XMS_ITS | Encounter Summary ---
Author Organization [facility] [place] [address] Care Team Providers Care School Secretary Name Role Phone Natty Mckinney MD Primary Care Provider [phone] Encounter Details Date Type Department Care Team (Late st Contact Info) Description 03/17/2020 2:15 PM EDT Procedure visit Radiation Oncology at [address] [phone] Santiago Arroyo MD [address] [place] [address] RADIATION ONCOLOGY [place], [place] [id number] Malignant neoplasm of prostate Social History Tobacco [...] prostate documented in this encounter Care Teams School Secretary Relationship Specialty Start Date End Date Natty Mckinney MD [address] [place] [address] PCP - General 10/11/10 documented as of this encounter
--- OUTSIDE RECORDS SUMMARY | 2024-07-25 01:03 | XMS_ITS | Encounter Summary ---
Author Organization [facility] [place] [address] Care Team Providers Care Technician Preventative Medicine Name Role Phone Natty Mckinney MD Primary Care Provider [phone] Encounter Details Date Type Department Care Team (Late st Contact Info) Description 05/06/2020 8:30 AM EDT Office Visit Radiation Oncology at [address] [phone] Santiago Arroyo MD [address] [place] [address] RADIATION ONCOLOGY [place], [place] [id number] Malignant neoplasm of prostate Social History Tobacco [...] [facility] [phone] (paging level glass forming machine operator) Pager #[phone] ?? PATIENT IDENTIFICATION ? Name Krishan Monte [...] Start Date End Date 03/10/20 03/19/20 ?? FREEZING MACHINE OPERATOR TREATMENT MANCILLA: ?? INTERVAL HISTORY Subjective: [...] prostate documented in this encounter Care Teams Technician Preventative Medicine Relationship Specialty Start Date End Date Natty Mckinney MD [address] [place] [address] PCP - General 10/11/10 documented as of this encounter
--- OUTSIDE RECORDS SUMMARY | 2024-07-25 01:03 | XMS_ITS | Encounter Summary ---
Author Organization [facility] [place] [address] Care Team Providers Care Aircraft Layout Worker Name Role Phone Natty Mckinney MD Primary Care Provider Encounter Details Date Type Department Care Team (Late st Contact Info) Description 05/13/2020 Telephone Radiation Oncology at [address] [address] Arun Lyle Social History Tobacco [...] on filedocumented in this encounter Care Teams Aircraft Layout Worker Relationship Specialty Start Date End Date Natty Mckinney MD [address] [place] [address] PCP - General 10/11/10 documented as of this encounter
--- OUTSIDE RECORDS SUMMARY | 2024-07-25 01:03 | XMS_ITS | Encounter Summary ---
Author Organization [facility] [place] [address] Care Team Providers Care Automotive Glass Technician Name Role Phone Natty Mckinney MD Primary Care Provider [phone] Encounter Details Date Type Department Care Team (Late st Contact Info) Description 2020 11:30 AM EDT TH Visit (TeleHealth) Radiation Oncology at [address] [phone] Santiago Arroyo MD [address] [place] [address] RADIATION ONCOLOGY [place], [place] [address] Malignant neoplasm of prostate Social History Tobacco [...] Arroyo MD, MS Radiation Oncology ?? [facility] [phone] (paging grating machine operator) Pager #[phone] ?? PATIENT IDENTIFICATION ? Name Krishan Monte [...] Start Date End Date 03/10/20 03/19/20 ?? SCREW MACHINE OPERATOR SINGLE SPINDLE TREATMENT MANCILLA: ?? INTERVAL HISTORY Subjective: General [...] documented in this encounter Care Teams Automotive Glass Technician Relationship Specialty Start Date End Date Natty Mckinney MD [address] [place] [address] PCP - General 10/11/10 documented as of this encounter
--- OUTSIDE RECORDS SUMMARY | 2024-07-25 01:03 | XMS_ITS | Encounter Summary ---
Author Organization [facility] [place] [address] Care Team Providers Care Auto Rental Clerk Name Role Phone Natty Mckinney MD Primary Care Provider [phone] Encounter Details Date Type Department Care Team (Late st Contact Info) Description 05/13/2020 8:00 AM EDT TH Visit (TeleHealth) Radiation Oncology at [address] [phone] Santiago Arroyo MD [address] [place] [address] RADIATION ONCOLOGY [place], [place] [address] Malignant neoplasm of prostate Social History Tobacco [...] Santiago Arroyo MD, MS Radiation Oncology ?? [facility] [phone] (paging light rail operator) Pager #[phone] ?? PATIENT IDENTIFICATION ? Name Krishan Monte [...] Start Date End Date 03/10/20 03/19/20 ?? WAREHOUSE CHECKER TREATMENT MANCILLA: ?? INTERVAL HISTORY Subjective: General [...] prostate documented in this encounter Care Teams Auto Rental Clerk Relationship Specialty Start Date End Date Natty Mckinney MD [address] [place] [address] PCP - General 10/11/10 documented as of this encounter
--- OUTSIDE RECORDS SUMMARY | 2024-07-25 01:03 | XMS_ITS | Encounter Summary ---
[place] [address] Care Team Providers Care Phlebotomist Lab Assistant Name Role Phone Natty Mckinney MD Primary Care Provider [phone] Reason for Visit * - Closed Specialty Diagnoses / Procedures Referred By Contac t Referred To Contact Procedures Film Library- Storage Only nuclear medicine Natty Mckinney MD [address] [place] [address] Referral ID Status Reason Start Date Expiration Date Visits Re quested Visits Authorized [id number] Closed 03/31/2021 03/31/2022 1 1 Encounter Details Date Type Department Care Team (Late st Contact Info) Description 03/30/2021 Ancillary Procedure [place] [address] Natty Mckinney MD [address] [place] [address] Social History Tobacco Use Types [...] nuclear medicine (03/30/2021 12:00 AM EDT) Narrative [facility] - 03/31/2021 9:16 AM EDT This exam is auto-finalizing. It's purpose is for storage only. Natty Mckinney MD G FILM LIBRARY ORD ERABLES Performing Organization Address City/State/[facility] Co de Phone Number [place], [place] documented in this encounter Visit Diagnoses Not on filedocumented in this encounter Care Teams Phlebotomist Lab Assistant Relationship Specialty Start Date End Date Natty Mckinney MD [address] [place] [address] PCP - General 10/11/10 documented as of this encounter
--- OUTSIDE RECORDS SUMMARY | 2024-07-25 01:03 | XMS_ITS | Encounter Summary ---
Author Organization [facility] [place] [address] Care Team Providers Care Gang Tailer Name Role Phone Natty Mckinney MD Primary Care Provider [phone] Encounter Details Date Type Department Care Team (Late st Contact Info) Description 12/02/2019 [place] [address] Daniele Seals MD [facility] [place] [address] Social History Tobacco Use Types Packs/Day Years Used Date Smoking Tobacco: Never Assessed Sex and Gender Information Value Date Recorded Sex Assigned at Not on file Gender Identity Not on file Sexual Orientation Not on file documented as of this encounter Miscellaneous Notes * Telephone Encounter - Nicole Mayer - 12/02/2019 4:[address] Nicholson from [facility] called regarding pt. Pt had CT Prostate BX in 09/2019 - Case discussed at Tumor Board 10/30/19, no appointments have been scheduled to discuss plan with patient. Please Advise or Pt can be reached at [phone] documented in this encounter Plan of Treatment Not on file documented as of this encounter Visit Diagnoses Not on filedocumented in this encounter Care Teams Gang Tailer Relationship Specialty Start Date End Date Natty Mckinney MD [address] [place] [address] PCP - General 10/11/10 documented as of this encounter
--- OUTSIDE RECORDS SUMMARY | 2024-07-25 01:03 | XMS_ITS | Encounter Summary ---
Author Organization [facility] [place] [address] Care Team Providers Care Supervisor Drying And Softening Name Role Phone Natty Mckinney MD Primary Care Provider [phone] Encounter Details Date Type Department Care Team (Late st Contact Info) Description 05/06/2020 8:00 AM EDT TH Visit (TeleHealth) Radiation Oncology at [address] [phone] Santiago Arroyo MD [address] [place] [address] RADIATION ONCOLOGY [place], [place] [phone] Malignant neoplasm of prostate Social History Tobacco [...] documented in this encounter Care Teams Supervisor Drying And Softening Relationship Specialty Start Date End Date Natty Mckinney MD [address] [place] [address] PCP - General 10/11/10 documented as of this encounter
--- OUTSIDE RECORDS SUMMARY | 2024-07-25 01:03 | XMS_ITS | Encounter Summary ---
Author Organization [facility] [place] [address] Care Team Providers Care Sheriffs Detective Name Role Phone Natty Mckinney MD Primary Care Provider [phone] Encounter Details Date Type Department Care Team (Late st Contact Info) Description 02/03/2021 Ancillary Procedure Radiology [place] [address] Natty Lawton APRN [facility] [place] [address] Social History Tobacco Use Types Packs/Day Years [...] & Pelvis (02/03/2021 12:00 AM EDT) Narrative [facility] - 10/11/2022 1:58 PM EST This exam is auto-finalizing. It's purpose is for storage only. Natty Lawton APRN IMG FILM LIBRARY ORD ERABLES [facility] RAD [place], [place] documented in this encounter Visit Diagnoses Not on filedocumented in this encounter Care Teams Sheriffs Detective Relationship Specialty Start Date End Date Natty Mckinney MD [address] [place] [address] PCP - General 10/11/10 documented as of this encounter
--- OUTSIDE RECORDS SUMMARY | 2024-07-25 01:03 | XMS_ITS | Encounter Summary ---
Author Organization [facility] [place] [address] Care Team Providers Care Silk Screen Operator Name Role Phone Natty Mckinney MD Primary Care Provider [phone] Encounter Details Date Type Department Care Team (Late st Contact Info) Description 03/16/2020 Telephone Radiation Oncology at [address] [phone] Arun Lyle Social History Tobacco [...] on filedocumented in this encounter Care Teams Silk Screen Operator Relationship Specialty Start Date End Date Natty Mckinney MD [address] [place] [address] PCP - General 10/11/10 documented as of this encounter
--- OUTSIDE RECORDS SUMMARY | 2024-07-25 01:03 | XMS_ITS | Encounter Summary ---
Author Organization [facility] [place] [address] Care Team Providers Care Lift Driver Name Role Phone Natty Mckinney MD Primary Care Provider Encounter Details Date Type Department Care Team (Latest Contact Info) Description 04/06/2021 1:35 PM EDT Ancillary Procedure [place] [phone] Shweta Hendrix, [address] RADIATION ONCOLOGY [place], [place] [phone] Malignant neoplasm of prostate Social History Tobacco [...] who have questions please contact the health point of care specialist that requested your imaging first. ? 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 Shweta Hendrix APRN IMG OUTSIDE INTERPRE TATION ORDERABLES documented in this encounter Visit Diagnoses Diagnosis Malignant neoplasm of prostate documented in this encounter Care Teams Lift Driver Relationship Specialty Start Date End Date Natty Mckinney MD [address] [place] [address] PCP - General 10/11/10 documented as of this encounter
--- OUTSIDE RECORDS SUMMARY | 2024-07-25 01:03 | XMS_ITS | Encounter Summary ---
Author Organization [facility] [place] [address] Care Team Providers Care Manager Insurance Name Role Phone Natty Mckinney MD Primary Care Provider Encounter Details Date Type Department Care Team (Late st Contact Info) Description 04/29/2020 Telephone Radiation Oncology at [address] [phone] Arun Lyle Social History Tobacco [...] filedocumented in this encounter Care Teams Manager Insurance Relationship Specialty Start Date End Date Natty Mckinney MD [address] [place] [address] PCP - General 10/11/10 documented as of this encounter
--- OUTSIDE RECORDS SUMMARY | 2024-07-25 01:03 | XMS_ITS | Encounter Summary ---
Author Organization [facility] Address [facility] [place] [address] Care Team Providers Care Clerical Assigner Name Role Phone Natty Mckinney MD Primary Care Provider [phone] Encounter Details Date Type Department Care Team (Late st Contact Info) Description 01/28/2020 Notes Only Radiation Oncology at [address] [phone] Nancy Sandoval MSW OFFICE OF [...] in the area and his daughter in [place] as his primary supports. Living Situation/Daily Activities/Transportation: [...] at this time. Plan: Informed pt of REINFORCING METAL WORKER availability and will follow for support and resources. documented in this encounter Plan of Treatment Not on file documented as of this encounter Visit Diagnoses Not on filedocumented in this encounter Care Teams Clerical Assigner Relationship Specialty Start Date End Date Natty Mckinney MD [address] [place] [address] PCP - General 10/11/10 documented as of this encounter
--- OUTSIDE RECORDS SUMMARY | 2024-07-25 01:03 | XMS_ITS | Encounter Summary ---
Author Organization [facility] [place] [address] Care Team Providers Care Drywall Finishing Foreman Name Role Phone Natty Mckinney MD Primary Care Provider [phone] Encounter Details Date Type Department Care Team (Late st Contact Info) Description 05/11/2020 Telephone Radiation Oncology at [address] [phone] Melvi Maddox RN Social History [...] 1:53 PM EDT Background: Received voicemail from [facility] in [facility] stating that they do not [...] prostate documented in this encounter Care Teams Drywall Finishing Foreman Relationship Specialty Start Date End Date Natty Mckinney MD [address] [place] [address] PCP - General 10/11/10 documented as of this encounter
--- OUTSIDE RECORDS SUMMARY | 2024-07-25 01:03 | XMS_ITS | Encounter Summary ---
Author Organization [facility] [place] [address] Care Team Providers Care Business Continuity Global Director Name Role Phone Natty Mckinney MD Primary Care Provider [phone] Encounter Details Date Type Department Care Team (Late st Contact Info) Description 12/22/2019 [place] [address] Norman De Oliveira, [facility] [place] [address] Social History Tobacco Use Types Packs/Day Years [...] filedocumented in this encounter Care Teams Business Continuity Global Director Relationship Specialty Start Date End Date Natty Mckinney MD [address] [place] [address] PCP - General 10/11/10 documented as of this encounter
--- OUTSIDE RECORDS SUMMARY | 2024-07-25 01:03 | XMS_ITS | Encounter Summary ---
Author Organization [facility] Address [facility] [place] [address] Care Team Providers Care Open Hearth Worker Name Role Phone Natty Mckinney MD Primary Care Provider [phone] Reason for Referral * Consultation (Routine) - Closed Specialty Diagnoses / Procedures Referred By Contangela t Referred To Contact Radiation Oncology Diagnoses Malignant neoplasm of prostate Daniele Seals MD [facility] [place] [address] [facility] Rad Onc Treatment [address] [place] [phone] Referral ID Status Reason Start Date Expiration Date V isits Requested Visits Authorized [id number] Closed Consult, Test & Treat 12/03/2019 12/02/2020 1 1 Encounter Details Date Type Department Care Team (Late st Contact Info) Description 12/03/2019 [place] [address] Daniele Seals MD [facility] [place] [address] Malignant neoplasm of prostate Social History Tobacco [...] prostate documented in this encounter Care Teams Open Hearth Worker Relationship Specialty Start Date End Date Natty Mckinney MD [address] [place] [address] PCP - General 10/11/10 documented as of this encounter
--- OUTSIDE RECORDS SUMMARY | 2024-07-25 01:03 | XMS_ITS | Encounter Summary ---
Author Organization [facility] [place] [address] Care Team Providers Care Tube Room Supervisor Name Role Phone Natty Mckinney MD Primary Care Provider [phone] Encounter Details Date Type Department Care Team (Late st Contact Info) Description 01/06/2020 Telephone Radiation Oncology at [address] [address] Arun Lyle Social History Tobacco [...] filedocumented in this encounter Care Teams Tube Room Supervisor Relationship Specialty Start Date End Date Natty Mckinney MD [address] [place] [address] PCP - General 10/11/10 documented as of this encounter
--- OUTSIDE RECORDS SUMMARY | 2024-07-25 01:03 | XMS_ITS | Encounter Summary ---
Author Organization [facility] [place] [address] Care Team Providers Care Reimbursement Consultant Name Role Phone Natty Mckinney MD Primary Care Provider [phone] Encounter Details Date Type Department Care Team (Late st Contact Info) Description 04/26/2020 Telephone Radiation Oncology at [address] [phone] Tamara Boone RN Social History [...] PM EDT Radiation Oncology Nurse Telephone Note [facility] [place], [place] ----- Message from Santiago Arroyo MD [...] this. Tamara 04/26/20 16:10 Telephone call to [facility] ( [place], [place]) Natty Mckinney MD [phone] Spoke to nurse, Yanni. I read her [...] on filedocumented in this encounter Care Teams Reimbursement Consultant Relationship Specialty Start Date End Date Natty Mckinney MD [address] [place] [address] PCP - General 10/11/10 documented as of this encounter
--- OUTSIDE RECORDS SUMMARY | 2024-07-25 01:03 | XMS_ITS | Encounter Summary ---
Author Organization [facility] [place] [address] Care Team Providers Care Team Facilitator Name Role Phone Natty Mckinney MD Primary Care Provider [phone] Encounter Details Date Type Department Care Team (Late st Contact Info) Description 01/02/2020 Telephone Radiation Oncology at [address] [phone] Arun Lyle Social History Tobacco [...] on filedocumented in this encounter Care Teams Team Facilitator Relationship Specialty Start Date End Date Natty Mckinney MD [address] [place] [address] PCP - General 10/11/10 documented as of this encounter
--- OUTSIDE RECORDS SUMMARY | 2024-07-25 01:03 | XMS_ITS | Encounter Summary ---
Author Organization [facility] [place] [address] Care Team Providers Care Hvac Mechanic Name Role Phone Natty Mckinney MD Primary Care Provider [phone] Reason for Visit * Reason Comments Prostate Cancer Encounter Details Date Type Department Care Team (Late st Contact Info) Description 03/24/2021 10:30 AM EDT TH Visit (TeleHealth) Radiation Oncology at [address] [phone] Shweta Hendirx DRY HOUSE OPERATOR [address] [place] [address] [place] [address] Malignant neoplasm of prostate Social History Tobacco [...] Start Date End Date 4/22/20 5/1/20 ?? ASSEMBLER [employer] TREATMENT MANCILLA: ?? Patient Active Problem List [...] OTHER 10/08/2019 CT Guided Biopsy Other 10/08/2019 [facility] RAD CAT SCAN Medications 03/24/21 1129 Medication Sig Taking? mecobalamin, vitamin B12, 1,000 mcg Tablet, Chewable Inject into the vein. Yes diclofenac (VOLTAREN) 1 % Gel Apply topically. Yes naloxone 4 mg/actuation [place], Non-Aerosol by Nasal route. 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 Because he had persistent hip pain he had imaging done of his hip at [facility] where there were concerning findings and it [...] affect walking. He had recent imaging at [facility] which demonstrated some concerning findings . Recent knee replacement on the right Exercise/functional status: Limited due to fatigue but able to drive and manage ostomy care, ADL and IADL Psych Some anxiety related to recent XR findings KPS 70-80 PE : N/E Labs: 02/08/2021-- CA=9.1, GLU= 121, BUN=12, CREAT=1.0, EGFR=>60, k=5.0, SS=245, CO2=26.4, WBC=10.03, RBC= 4.21, HGB=13.4, HCT=41.7, LNVO=725 PSA History:?? 12/21/2020-- 1.6 08/31/20 1.1 04/19/20: 1.9 09/08/19:??6.38 06/19/19: ?7.2 01/06/19: ?5.4 08/15/16: ?3.32 04/16/15: ?3.8 04/18/13: ?4.57 11/22/12: ?4.69 Imaging: Assessment/ Plan MR Monte IS A is a 55 y.o.man who is s/p SBRT for low risk prostate cancer PSA 7.2, [place] 3+3. He was treated with radiation therapy [...] prostate documented in this encounter Care Teams Hvac Mechanic Relationship Specialty Start Date End Date Natty Mckinney MD [address] [place] [address] PCP - General 10/11/10 documented as of this encounter
--- OUTSIDE RECORDS SUMMARY | 2024-07-25 01:03 | XMS_ITS | Encounter Summary ---
Author Organization [facility] [place] [address] Care Team Providers Care Learning And Development Associate Name Role Phone Natty Mckinney MD Primary Care Provider [phone] Encounter Details Date Type Department Care Team (Late st Contact Info) Description 05/06/2020 Telephone Radiation Oncology at [address] [phone] Tamara Boone RN Social History [...] AM EDT Radiation Oncology Nurse Telephone Note [facility] [place], [place] ----- Message from Santiago Arroyo MD [...] on filedocumented in this encounter Care Teams Learning And Development Associate Relationship Specialty Start Date End Date Natty Mckinney MD [address] [place] [address] PCP - General 10/11/10 documented as of this encounter
--- OUTSIDE RECORDS SUMMARY | 2024-07-25 01:03 | XMS_ITS | Encounter Summary ---
Author Organization [facility] [place] [address] Care Team Providers Care Equipment Planner Name Role Phone Natty Mckinney MD Primary Care Provider [phone] Reason for Visit * Reason Comments Prostate Cancer Encounter Details Date Type Department Care Team (Late st Contact Info) Description 02/09/2021 1:45 PM EDT TH Visit (TeleHealth) Radiation Oncology at [address] [phone] Shweta Hendrix APRN [address] [place] [address] RADIATION ONCOLOGY [place], [place] [id number] Malignant neoplasm of prostate Social History Tobacco [...] Message was left for patient to call [facility] to reschedule documented in this encounter Plan of Treatment Not on file documented as of this encounter Visit Diagnoses Diagnosis Malignant neoplasm of prostate documented in this encounter Care Teams Equipment Planner Relationship Specialty Start Date End Date Natty Mckinney MD [address] [place] [address] PCP - General 10/11/10 documented as of this encounter
--- OUTSIDE RECORDS SUMMARY | 2024-07-25 01:03 | XMS_ITS | Encounter Summary ---
Author Organization Counts Include [facility] Address [facility] [place] [address] Care Team Providers Care Human Services Case Manager Name Role Phone Natty Mckinney MD Primary Care Provider [phone] Encounter Details Date Type Department Care Team (Late st Contact Info) Description 09/26/2019 [place] [address] Daniele Seals MD [facility] [place] [address] Social History Tobacco Use Types Packs/Day Years [...] MRI results. He can be reached at [phone]. He is aware that Dr. Seals is not in clinic today, but states Dr. Seals can just leave a voicemail. documented in this encounter Plan of Treatment Not on file documented as of this encounter Visit Diagnoses Not on filedocumented in this encounter Care Teams Human Services Case Manager Relationship Specialty Start Date End Date Natty Mckinney MD [address] [place] [address] PCP - General 10/11/10 documented as of this encounter
--- OUTSIDE RECORDS SUMMARY | 2024-07-25 01:03 | XMS_ITS | Encounter Summary ---
Author Organization [facility] [place] [address] Care Team Providers Care Car Seat Upholsterer Name Role Phone Natty Mckinney MD Primary Care Provider Encounter Details Date Type Department Care Team (Late st Contact Info) Description 12/03/2019 Telephone Radiation Oncology at [address] [phone] Melvi Wise Social History Tobacco [...] on filedocumented in this encounter Care Teams Car Seat Upholsterer Relationship Specialty Start Date End Date Natty Mckinney MD [address] [place] [address] PCP - General 10/11/10 documented as of this encounter
--- OUTSIDE RECORDS SUMMARY | 2024-07-25 01:03 | XMS_ITS | Encounter Summary ---
Author Organization [facility] [place] [address] Care Team Providers Care Rn Cardiology Name Role Phone Natty Mckinney MD Primary Care Provider [phone] Encounter Details Date Type Department Care Team (Latest Contact Info) Description 10/08/2019 7:05 AM EST Laboratory Appointment Lab [address] [place] [phone] Stomach ache; Epidemic vomiting syndrome; Ileostomy status [...] AM EST Stomach ache [facility]emic [facility] CBC,PLT & AUTO DIFF Routine 9 7:14 AM EST Stomach ache Epidemic vomiting syndrome Ileostomy status HC MAGNESIUM, SERUM Routine 10/08/2019 7 :14 AM EST Stomach ache Epidemic vomiting syndrome Ileostomy status HC CREATINE PHOSPHOKINASE, SERUM Routine 10/08/2019 7:14 AM EST Stomach ache Epidemic vomiting syndrome Ileostomy status COMPREHENSIVE METABOLIC PANEL Routine 10/08/2019 7:14 AM EST documented in this encounter Results * TSH [place] (10/08/2019 7:14 AM EST) Thyroid Stimulating Hormone 1.94 0.27 - 4.20 mcIU/mL [facility] Blood specimen (specimen) Venous Draw / Unknown 10/08/2019 7:14 AM EST 10/08/2019 7:27 AM EST Narrative Resulting Agency Comment Spec In Lab Natty Mckinney MD CHEMISTRY ORDERABLES [facility] [place] [address] * Comprehensive metabolic panel (non-fasting) (10/08/2019 7:14 AM EST) Glucose 95 65 - 199 mg/dL [facility] Comment:Diabetes: >=200 mg/d L plus symptoms Blood Urea Nitrogen 16 10 - 20 mg/dL [facility] Creatinine 0.93 0.80 - 1.50 mg/dL [facility] Sodium 138 135 - 145 mmol/L [facility] Potassium 4.6 3.5 - 5.0 mmol/L [facility] Comment: Please note: ??Patients with WBC >100,000 may have falsely elevated Potassium levels. ??For accurate Potassium quantification in these patients send serum separator tube (gold top) for subsequent determinations. ??Contact the Clinical Chemistry Laboratory if there are any questions. Chloride 104 98 - 107 mmol/L [facility] Carbon Dioxide 23 22 - 31 mmol/L [facility] Anion Gap 11 5 - 15 mmol/L [facility] Calcium 9.4 8.5 - 10.5 mg/dL [facility] Protein, Total 6.7 6.1 - 8.0 gm/dL [facility] Albumin 4.4 3.2 - 5.2 gm/dL [facility] Aspartate Aminotransferase 21 0 - 39 unit/L [facility] Alanine Aminotransferase 33 0 - 55 unit/L [facility] Alkaline Phosphatase 97 40 - 130 unit/L [facility] Bilirubin, Total 0.6 0.2 - 1.3 mg/dL [facility] Est Glomerular Filtration Rate 92 >=60 mL/min/1. 73 m?? [facility] Comment: The eGFR was calculated using the CKD-EPI equation. As with all creatinine based estimates of kidney function, eGFR values calculated with the CKD-EPI equation are not accurate in patients with acute kidney failure, extremes of body mass or the acutely ill. http://OwlTing ???/DHnkf eGFR 107 >=60 mL/min/1. 73 m?? [facility] Comment: The eGFR was calculated using the CKD-EPI equation. As with all creatinine based estimates of kidney function, eGFR values calculated with the CKD-EPI equation are not accurate in patients with acute kidney failure, extremes of body mass or the acutely ill. http://OwlTing ???/DHnkf Blood specimen (specimen) Venous Draw / Unknown 10/08/2019 7:14 AM EST 10/08/2019 7:27 AM EST Narrative Resulting Agency Comment Spec In Lab Natty Mckinney MD CHEMISTRY ORDERABLES [facility] [place] [address] * (ABNORMAL) Differential, Automated (10/08/2019 7:14 AM EST) Neutrophil % 80.5 % [facility] Neutrophil Absolute 9.70(H) 1.70 - 6.10 x10(3)/[facility] Lymph % 10.9 % [facility] Lymphocytes Abs 1.3 0.9 - 3.2 x10(3)/ L [facility] Monocyte % 5.8 % [facility] Monocyte Abs 0.7 0.3 - 0.9 x10(3)/[facility] Eos % 0.7 % [facility] Eosinophils Abs 0.1 0.0 - 0.4 x10(3)/[facility] Basophil % 0.4 % [facility] Baso Absolute 0.0 0.0 - 0.1 x10(3)/[facility] Immature Gran % 1.70 % [facility] Comment: Immature granulocytes(IG's)percentage and absolute count will include metamyelocytes, myelocytes, and promyelocytes. Blood smears from CBCs yielding IG's will be scanned manually for concordance. If this scan disagrees with the automated IG or if promyelocytes are noted, a manual differential will be performed. Immature Gran Absolute 0.21(H) 0.00 - 0.04 x10(3)/[facility] Blood specimen (specimen) 10/08/2019 7:14 AM EST 10/08/2019 7:27 AM EST Narrative Resulting Agency Comment Spec In Lab Natty Mckinney MD HEMATOLOGY ORDERABLE S [facility] [place] [address] * (ABNORMAL) Hemogram (10/08/2019 7:14 AM EST) White Blood Cell 12.1(H) 4.0 - 9.5 x10(3)/[facility] Red Blood Cell 4.53(L) 4.58 - 5.54 x10(6)/[facility] Hemoglobin 14.2 13.7 - 16.5 gm/dL [facility] Hematocrit 43.8 40.5 - 48.5 % [facility] Mean Cell Volume 96.7(H) 82.9 - 93.1 [facility] Mean Cell Hemoglobin 31.3 27.5 - 32.1 pg [facility] Mean Cell Hemoglobin Concentration 32.4 32.0 - 35.7 gm/dL [facility] Platelet 221 145 - 357 x10(3)/mc L [facility] RDW Standard Deviation 46.5(H) 36.0 - 45.0 fL [facility] RDW coefficient of variation 13.1 11.4 - 13.8 % [facility] Mean Platelet Volume 10.6 7.6 - 12.9 fL [facility] NRBC% auto 0.0 % [facility] NRBC Absolute 0.000 0.000 - 0.000 x10(3)/mc L [facility] Blood specimen (specimen) 10/08/2019 7:14 AM EST 10/08/2019 7:27 AM EST Narrative Resulting Agency Comment Spec In Lab Natty Mckinney MD HEMATOLOGY ORDERABLE S [facility] [place] [address] * (ABNORMAL) Vitamin A (10/08/2019 7:14 AM EST) Pathologist [facility] Vitamin A ([place]ARCH) 87.6(H) 32.5 - 78.0 mcg/dL [facility] Comment: ADDITIONAL INFORMATION This test was developed and its performance characteristics determined by [facility] in a manner consistent with CLIA requirements. This test has not been cleared or approved by the U.S. Food and Drug Administration. Test Performed by: [facility] [address] [place] [address] Evp Managing Director: Valente Romero M.D. Ph.D.; CLIA# [id number] Blood specimen (specimen) 10/08/2019 7:14 AM EST 10/08/2019 10:36 AM EST Narrative Resulting Agency Comment Spec In Lab Natty Mkcinney MD LAB SEND OUT ORDERAB LES Performing Organization Address [facility]/ZIP Co de Phone Number [facility] [place] [address] * Magnesium (10/08/2019 7:14 AM EST) Magnesium 0.87 0.69 - 1.07 mmol/L [facility] Blood specimen (specimen) 10/08/2019 7:14 AM EST 10/08/2019 7:27 AM EST Narrative Resulting Agency Comment Spec In Lab Natty Mckinney MD CHEMISTRY ORDERABLES Performing Organization Address City/[facility] Co de Phone Number [facility] [place] [address] * CK (10/08/2019 7:14 AM EST) Creatine Kinase 59 0 - 200 unit/L [facility] Blood specimen (specimen) 10/08/2019 7:14 AM EST 10/08/2019 7:27 AM EST Narrative Resulting Agency Comment Spec In Lab Natty Mckinney MD CHEMISTRY ORDERABLES Performing Organization Address [facility] Co de Phone Number [facility] [place] [address] * Sedimentation rate (10/08/2019 7:14 AM EST) Sedimentation Rate Automated 5 0 - 15 mm/hr [facility] Blood specimen (specimen) 10/08/2019 7:14 AM EST 10/08/2019 7:27 AM EST Narrative Resulting Agency Comment Spec In Lab Natty Mckinney MD HEMATOLOGY ORDERABLE S Performing Organization Address City/[facility]/ZIP Co de Phone Number [facility] [place] [address] * Vitamin B1, whole blood (10/08/2019 7:14 AM EST) Vit B1 Lvl Wb (MARCH) 177 70 - 180 nmol/L [facility] Comment: ADDITIONAL INFORMATION This test was developed and its performance characteristics determined by [facility] in a manner consistent with CLIA requirements. This test has not been cleared or approved by the U.S. Food and Drug Administration. Test Performed by: [facility] [place] [address] Evp Managing Director: Valente Romero M.D. Ph.D.; CLIA# [id number] Blood specimen (specimen) 10/08/2019 7:14 AM EST 10/08/2019 8:35 AM EST Narrative Resulting Agency Comment Spec In Lab Natty Mckinney MD LAB SEND OUT ORDERAB LES Performing Organization Address City/[facility]/ZIP Co de Phone Number [facility] [place] [address] documented in this encounter Visit Diagnoses Diagnosis Stomach ache Dyspepsia and other specified disorders of function of stomach Epidemic vomiting syndrome Ileostomy status documented in this encounter Care Teams Rn Cardiology Relationship Specialty Start Date End Date Natty Mckinney MD [address] [place] [address] PCP - General 10/11/10 documented as of this encounter
--- OUTSIDE RECORDS SUMMARY | 2024-07-25 01:03 | XMS_ITS | Encounter Summary ---
Author Organization [facility] [place] [address] Care Team Providers Care Twisting Operator Name Role Phone Natty Mckinney MD Primary Care Provider [phone] Encounter Details Date Type Department Care Team (Late st Contact Info) Description 10/07/2020 Ancillary Procedure [facility] [place] [phone] Natty Mckinney MD [address] [place] [address] Social History Tobacco Use Types Packs/Day Years [...] DX Hand (10/07/2020 12:00 AM EST) Narrative [facility] - 01/31/2022 11:11 AM EDT This exam is auto-finalizing. It's purpose is for storage only. Natty Mckinney MD IMG FILM LIBRARY ORD ERABLES [facility] [place], [place] documented in this encounter Visit Diagnoses Not on filedocumented in this encounter Care Teams Twisting Operator Relationship Specialty Start Date End Date Natty Mckinney MD [address] [place] [address] PCP - General 10/11/10 documented as of this encounter
--- OUTSIDE RECORDS SUMMARY | 2024-07-25 01:03 | XMS_ITS | Encounter Summary ---
[place] [address] Care Team Providers Care Extracting Machine Operator Name Role Phone Natty Mckinney MD Primary Care Provider [phone] Reason for Referral * Diagnostic Test (Routine) - Closed Specialty Diagnoses / Procedures Referred By Claire t Referred To Contact Radiology Diagnoses Elevated PSA Procedures CT Guided Biopsy Other Daniele Seals MD [facility] [place] [address] [facility] [place] [address] Referral ID Status Reason Start Date Expiration Date V isits Requested Visits Authorized [id number] Closed Specialty Service Requested 09/26/2019 09/25/2020 1 1 Reason for Visit * Diagnostic Test (Routine) - Closed Specialty Diagnoses / Procedures Referred By Contac t Referred To Contact Radiology Diagnoses Elevated PSA Procedures CT Guided Biopsy Other Daniele Seals MD [facility] [place] [address] [facility] [place] [address] Referral ID Status Reason Start Date Expiration Date V isits Requested Visits Authorized [id number] Closed Specialty Service Requested 09/26/2019 09/25/2020 1 1 Encounter Details Date Type Department Care Team (Latest Contact Info) Description 10/08/2019 7:19 AM EST - 10/08/2019 11:59 PM EST Hospital Encounter CT Scan at [facility] [place] [address] Daniele Seals MD [facility] [place] [address] Elevated PSA Discharge Disposition: Home Social History [...] Montiel RN - 10/08/2019 10:30 AM EST [facility] Vascular and Interventional Radiology Biopsy Discharge [...] be reported to you by your primary neonatal intensive care unit nurse or the clinician who ordered the biopsy. [...] is during regular office hours, please call [phone]. If it is after regular office hours, or on weekends or holidays, please call [phone] and ask to speak to the Production Analyst reconsignment clerk for Interventional Radiology. You have received medication [...] please contact your M. D. Revised 09/04/19 [facility] Vascular and Interventional Radiology Biopsy Discharge [...] be reported to you by your primary neonatal intensive care unit nurse or the clinician who ordered the biopsy. [...] is during regular office hours, please call [phone]. If it is after regular office hours, or on weekends or holidays, please call [phone] and ask to speak to the Production Analyst reconsignment clerk for Interventional Radiology. You have received medication [...] (home) Telephone Information: PCP Natty Mckinney MD [phone] Date/Time of call: October 09, 2019/9:25 AM [...] of : 1965 AGE: 54 y.o. Address: [address] [address] (home) Mobile: Telephone Information: Referring Provider: Daniele Seals REASON FOR VISIT: Order Questions Answers Where will study be performed? [facility] Radiology [120] Laterality Right Is [...] this encounter H&P Notes * Barbara Pereztammy, CROSS ROLLER - 10/08/2019 8:37 AM EST Images from [...] Questions Answers Where will study be performed? [facility] Radiology [120] Laterality Right Is [...] Prostate was localized with CT, patient prone. ??[place], mid and basal sites located on right and left. After sterile preparation of the overlying skin, 7 cc 1% lidocaine SQ was administered for anesthesia, and a 17 ga needle guide was advanced under CT guidance into the mass. The 18 ga biopsy gun was advanced coaxially and specimen obtained x 1-2 at each site and submitted individually labelled ??to pathology. ??[place] were removed and hemostasis obtained by manual [...] Surgical Pathology Report (10/08/2019 9:45 AM EST) Final Diagnosis [id number] ? Location: [facility] The signing pathologist has (i) [...] biopsies, right mid: ?Adenocarcinoma, grade group 1, Kerrick grade 3+3, ?involving 2 of 2 core [...] Coulter Verified: ??10/10/2019 ?Pathologist Performed at: ??-[facility], [place], [place] DISCUSSION Scanned slides: [id number] . CLINICAL INFORMATION Specimen Submitted: A - Right Lateral Base B - Right Lateral Mid C - Right Lateral [place] D - Right Base E - Right Mid F - Right [place] G - Left Lateral Base H - Left Lateral Mid I - Left Lateral [place] J - Left Base K - Left Mid L - Left [place] Clinical History and Diagnosis: Patient status post [...] labeled L1. ??crj 10/10/2019 2:41 PM EST [facility] PROSTATIC STRUCTURE / Unknown 10/08/2019 [...] AM EST Daniele Seals MD PATHOLOGY/CYTOLOGY ORDERABLES [facility] [place] [address] * Specimen to Pathology (10/08/2019 9:16 AM EST) AP Specimen 10/08/2019 9:16 AM EST 10/08/2019 9:16 AM EST Narrative [facility] - 10/08/2019 9:16 AM EST Specimen requisition ordered. ??Separate Pathology report to follow Daniele Seals MD PATHOLOGY/CYTOLOGY ORDERABLES Performing Organization Address City/[facility]/ZIP Co de Phone Number [facility] [place] [address] * Specimen to Pathology (10/08/2019 9:16 AM EST) AP Specimen 10/08/2019 9:16 AM EST 10/08/2019 9:16 AM EST Narrative [facility] - 10/08/2019 9:16 AM EST Specimen requisition ordered. ??Separate Pathology report to follow Daniele Seals MD PATHOLOGY/CYTOLOGY ORDERABLES Performing Organization Address [facility]/ZIP Co de Phone Number [facility] [place] [address] * Specimen to Pathology (10/08/2019 9:16 AM EST) AP Specimen 10/08/2019 9:16 AM EST 10/08/2019 9:16 AM EST Narrative [facility] - 10/08/2019 9:16 AM EST Specimen requisition ordered. ??Separate Pathology report to follow Daniele Seals MD PATHOLOGY/CYTOLOGY ORDERABLES Performing Organization Address [facility] [place] [address] * Specimen to Pathology (10/08/2019 9:16 AM EST) AP Specimen 10/08/2019 9:16 AM EST 10/08/2019 9:16 AM EST Narrative [facility] - 10/08/2019 9:16 AM EST Specimen requisition ordered. ??Separate Pathology report to follow Daniele Seals MD PATHOLOGY/CYTOLOGY ORDERABLES Performing Organization Address [facility] Co de Phone Number [facility] [place] [address] * Specimen to Pathology (10/08/2019 9:16 AM EST) AP Specimen 10/08/2019 9:16 AM EST 10/08/2019 9:16 AM EST Narrative [facility] - 10/08/2019 9:16 AM EST Specimen requisition ordered. ??Separate Pathology report to follow Daniele Seals MD PATHOLOGY/[place] [address] * Specimen to Pathology (10/08/2019 9:16 AM EST) AP Specimen 10/08/2019 9:16 AM EST 10/08/2019 9:16 AM EST Narrative [facility] - 10/08/2019 9:16 AM EST Specimen requisition ordered. ??Separate Pathology report to follow Daniele Seals MD PATHOLOGY/[place] [address] * Specimen to Pathology (10/08/2019 9:08 AM EST) AP Specimen 10/08/2019 9:08 AM EST 10/08/2019 9:08 AM EST Narrative [facility] - 10/08/2019 9:08 AM EST Specimen requisition ordered. ??Separate Pathology report to follow Daniele Seals MD PATHOLOGY/CYTOLOGY ORDERABLES [facility] [place] [address] * Specimen to Pathology (10/08/2019 9:08 AM EST) AP Specimen 10/08/2019 9:08 AM EST 10/08/2019 9:08 AM EST Narrative [facility] - 10/08/2019 9:08 AM EST Specimen requisition ordered. ??Separate Pathology report to follow Daniele Seals MD PATHOLOGY/CYTOLOGY ORDERABLES [facility] [place] [address] * Specimen to Pathology (10/08/2019 9:08 AM EST) AP Specimen 10/08/2019 9:08 AM EST 10/08/2019 9:08 AM EST Narrative [facility] - 10/08/2019 9:08 AM EST Specimen requisition ordered. ??Separate Pathology report to follow Daniele Seals MD PATHOLOGY/CYTOLOGY ORDERABLES Performing Organization Address [facility]/[place] [address] * Specimen to Pathology (10/08/2019 9:08 AM EST) AP Specimen 10/08/2019 9:08 AM EST 10/08/2019 9:08 AM EST Narrative [facility] - 10/08/2019 9:08 AM EST Specimen requisition ordered. ??Separate Pathology report to follow Daniele Seals MD PATHOLOGY/CYTOLOGY ORDERABLES Performing Organization Address [facility]/ZIP Co de Phone Number [facility] [place] [address] * Specimen to Pathology (10/08/2019 9:08 AM EST) AP Specimen 10/08/2019 9:08 AM EST 10/08/2019 9:08 AM EST Narrative [facility] - 10/08/2019 9:08 AM EST Specimen requisition ordered. ??Separate Pathology report to follow Daniele Seals MD PATHOLOGY/CYTOLOGY ORDERABLES Performing Organization Address City/[facility] Co de Phone Number [facility] [place] [address] * Specimen to Pathology (10/08/2019 9:08 AM EST) AP Specimen 10/08/2019 9:08 AM EST 10/08/2019 9:08 AM EST Narrative [facility] - 10/08/2019 9:08 AM EST Specimen requisition ordered. ??Separate Pathology report to follow Daniele Seals MD PATHOLOGY/CYTOLOGY ORDERABLES Performing Organization Address City/[facility]/ZIP Co de Phone Number [facility] [place] [address] * Specimen to Pathology (10/08/2019 8:12 AM EST) AP Specimen 10/08/2019 8:12 AM EST 10/08/2019 8:12 AM EST Narrative [facility] - 10/08/2019 8:12 AM EST Specimen requisition ordered. ??Separate Pathology report to follow Daniele Seals MD PATHOLOGY/CYTOLOGY ORDERABLES Performing Organization Address City/[facility]/ZIP Co de Phone Number [facility] [place] [address] documented in this encounter Visit Diagnoses Diagnosis [...] mL/hr documented in this encounter Care Teams Extracting Machine Operator Relationship Specialty Start Date End Date Natty Mckinney MD [address] [place] [address] PCP - General 10/11/10 documented as of this encounter
--- OUTSIDE RECORDS SUMMARY | 2024-07-25 01:03 | XMS_ITS | Encounter Summary ---
Author Organization [facility] [place] [address] Care Team Providers Care Concreting Supervisor Name Role Phone Natty Mckinney MD Primary Care Provider [phone] Encounter Details Date Type Department Care Team (Late st Contact Info) Description 05/06/2020 Telephone Radiation Oncology at [address] [phone] Arun Lyle Social History Tobacco [...] on filedocumented in this encounter Care Teams Concreting Supervisor Relationship Specialty Start Date End Date Natty Mckinney MD [address] [place] [address] PCP - General 10/11/10 documented as of this encounter
--- OUTSIDE RECORDS SUMMARY | 2024-07-25 01:03 | XMS_ITS | Encounter Summary ---
Author Organization [facility] [place] [address] Care Team Providers Care Cloud Developer Name Role Phone Natty Mckinney MD Primary Care Provider [phone] Encounter Details Date Type Department Care Team (Late st Contact Info) Description 03/15/2020 8:30 AM EDT Procedure visit Radiation Oncology at [address] [phone] Santiago Arroyo MD [address] [place] [address] RADIATION ONCOLOGY [place], [place] [id number] Malignant neoplasm of prostate Social History Tobacco [...] prostate documented in this encounter Care Teams Cloud Developer Relationship Specialty Start Date End Date Natty Mckinney MD [address] [place] [address] PCP - General 10/11/10 documented as of this encounter
--- OUTSIDE RECORDS SUMMARY | 2024-07-25 01:03 | XMS_ITS | Encounter Summary ---
Author Organization [facility] [place] [address] Care Team Providers Care Line Production Cook Name Role Phone Natty Mckinney MD Primary Care Provider [phone] Encounter Details Date Type Department Care Team (Late st Contact Info) Description 05/11/2020 Telephone Radiation Oncology at [address] [phone] Tamara Boone RN Social History [...] PM EDT Radiation Oncology Nurse Telephone Note [facility] [place], [place] Telephone call to patient to inquire [...] on filedocumented in this encounter Care Teams Line Production Cook Relationship Specialty Start Date End Date Natty Mckinney MD [address] [place] [address] PCP - General 10/11/10 documented as of this encounter
--- OUTSIDE RECORDS SUMMARY | 2024-07-25 01:03 | XMS_ITS | Encounter Summary ---
Author Organization [facility] [place] [address] Care Team Providers Care Poultry Farm Supervisor Name Role Phone Natty Mckinney MD Primary Care Provider [phone] Encounter Details Date Type Department Care Team (Late st Contact Info) Description 01/02/2020 Orders Only Radiation Oncology at [address] [phone] Santiago Arroyo MD [address] [place] [address] DR RADIATION ONCOLOGY [place], [place] [id number] Malignant neoplasm of prostate Social History Tobacco [...] prostate documented in this encounter Care Teams Poultry Farm Supervisor Relationship Specialty Start Date End Date Natty Mckinney MD [address] [place], [place] [address] PCP - General 10/11/10 documented as of this encounter
--- OUTSIDE RECORDS SUMMARY | 2024-07-25 01:03 | XMS_ITS | Encounter Summary ---
Author Organization [facility] [place] [address] Care Team Providers Care Safety Admin Assistant Name Role Phone Natty Mckinney MD Primary Care Provider [phone] Encounter Details Date Type Department Care Team (Late st Contact Info) Description 03/07/2020 Telephone Hematology/Oncology at [address] [phone] Miriam Pitts Social History Tobacco [...] on filedocumented in this encounter Care Teams Safety Admin Assistant Relationship Specialty Start Date End Date Natty Mckinney MD [address] [place] [address] PCP - General 10/11/10 documented as of this encounter
--- OUTSIDE RECORDS SUMMARY | 2024-07-25 01:03 | XMS_ITS | Encounter Summary ---
Author Organization [facility] [place] [address] Care Team Providers Care Hand Counter Name Role Phone Natty Mckinney MD Primary Care Provider [phone] Encounter Details Date Type Department Care Team (Late st Contact Info) Description 09/03/2020 9:00 AM EDT Office Visit Radiation Oncology at [address] [phone] Akila Ortiz APRN [facility] [place] [address] Malignant neoplasm of prostate Social History Tobacco [...] ? Akila Ortiz APRN Radiation Oncology ?? [facility] ?? PATIENT IDENTIFICATION ? Name Krishan Monte [...] Start Date End Date 03/10/20 03/19/20 ?? STONER HAND TREATMENT MANCILLA: ?? INTERVAL HISTORY Subjective: General [...] (ongoing for multiple years). MEDS Medications 09/03/20 0937 Medication Sig Taking? cyanocobalamin, vitamin B-12, 1,000 [...] prostate documented in this encounter Care Teams Hand Counter Relationship Specialty Start Date End Date Natty Mckinney MD [address] [place] [address] PCP - General 10/11/10 documented as of this encounter
--- OUTSIDE RECORDS SUMMARY | 2024-07-25 01:03 | XMS_ITS | Encounter Summary ---
Author Organization [facility] [place] [address] Care Team Providers Care Gate Cutter Name Role Phone Natty Mckinney MD Primary Care Provider [phone] Encounter Details Date Type Department Care Team (Late st Contact Info) Description 03/10/2020 2:15 PM EDT Procedure visit Radiation Oncology at [address] [phone] Santiago Arroyo MD [address] [place] [address] RADIATION ONCOLOGY [place], [place] [phone] Malignant neoplasm of prostate Social History Tobacco [...] Note 03/07/20 Santiago Arroyo MD Radiation Oncology [facility] [phone] (paging liquid chlorine operator) PATIENT IDENTIFICATION Name Krishan Monte Date [...] prostate documented in this encounter Care Teams Gate Cutter Relationship Specialty Start Date End Date Natty Mckinney MD [address] [place] [address] PCP - General 10/11/10 documented as of this encounter
--- OUTSIDE RECORDS SUMMARY | 2024-07-25 01:03 | XMS_ITS | Encounter Summary ---
Author Organization [facility] [place] [address] Care Team Providers Care Operations Examiner Name Role Phone Natty Mckinney MD Primary Care Provider [phone] Encounter Details Date Type Department Care Team (Late st Contact Info) Description 05/26/2020 Telephone Radiation Oncology at [address] [phone] Tamara Boone RN Social History [...] PM EDT Radiation Oncology Nurse Telephone Note [place], [place] Patient states that he is changing his pharmacy from [facility] to [facility]. He asked that the Dexamethasone 1 mg and Flomax prescriptions be sent to [facility]. He ran out of the Flomax yesterday and feels it does help He is still having some flow problems with urine . It takes a while to empty bladder. Denies straining. Dysuria is now resolved, but flow still an issue. Prescriptions for these medications were sent to [facility] per his request. Dr Arroyo informed of this via this note. documented in this encounter Plan of Treatment Not on file documented as of this encounter Visit Diagnoses Diagnosis Malignant neoplasm of prostate documented in this encounter Care Teams Operations Examiner Relationship Specialty Start Date End Date Natty Mckinney MD [address] [place] [address] PCP - General 10/11/10 documented as of this encounter
--- OUTSIDE RECORDS SUMMARY | 2024-07-25 01:03 | XMS_ITS | Encounter Summary ---
Author Organization [facility] Address [facility] [place] [address] Care Team Providers Care Marine Firefighter Name Role Phone Natty Mckinney MD Primary Care Provider [phone] Reason for Visit * Diagnostic Test (Routine) - Closed Specialty Diagnoses / Procedures Referred By Claire guerrero Referred To Contact Radiology Diagnoses Malignant neoplasm of prostate Procedures CT Guided Fiducial Marker CT Guided Biopsy Other Santiago Arroyo MD [address] [place] [address] [place] [address] [facility] [place] [address] Referral ID Status Reason Start Date Expiration Date V isits Requested Visits Authorized [id number] Closed Specialty Service Requested 12/22/2019 06/21/2021 1 1 Encounter Details Date Type Department Care Team (Latest Contact Info) Description 01/14/2020 9:34 AM EST - 01/14/2020 11:59 PM [facility] Hospital [place] [address] Santiago Arroyo MD [address] [place] [address] [place] [address] Malignant neoplasm of prostate Discharge [...] Bran RN - 01/14/2020 12:43 PM EST [facility] Vascular and Interventional Radiology Discharge Instructions [...] is during regular office hours, please call [phone]. If it is after regular office hours, or on weekends or holidays, please call [phone] and ask to speak to the [employer] national sales representative for Interventional Radiology. You have received medication [...] (home) Telephone Information: PCP Natty Mckinney MD [phone] Date/Time of call: January 15, 2020/10:24 AM [...] of : 1965 AGE: 54 y.o. Address: [address] [address] (home) Mobile: Telephone Information: Referring Provider: Santiago [...] of position, a PointCoil was deployed. ?? [place] removed, and hemostasis obtained with manual compression. [...] mg documented in this encounter Care Teams Marine Firefighter Relationship Specialty Start Date End Date Natty Mckinney MD [address] [place] [address] PCP - General 10/11/10 documented as of this encounter
--- OUTSIDE RECORDS SUMMARY | 2024-07-25 01:03 | XMS_ITS | Encounter Summary ---
Author Organization [facility] [place] [address] Care Team Providers Care Balance Wheel Arm Burnisher Name Role Phone Natty Mckinney MD Primary Care Provider Reason for Visit * Reason Onset Date Comments Prior Authorization 03/24/2021 Encounter Details Date Type Department Care Team (Late st Contact Info) Description 03/24/2021 Telephone [place]ematology [place] [phone] Shantell Schmitt Prior Authorization Social History Tobacco [...] - 03/24/2021 1:45 PM EDT PA: CPT 49427 Submitted verbally to [facility] [phone] Case:#[id number] Approved Auth#: [id number] Valid: 03/24/21-05/08/21 documented in this encounter Plan of Treatment Not on file documented as of this encounter Visit Diagnoses Not on filedocumented in this encounter Care Teams Balance Wheel Arm Burnisher Relationship Specialty Start Date End Date Natty Mckinney MD [address] [place] [address] PCP - General 10/11/10 documented as of this encounter
--- OUTSIDE RECORDS SUMMARY | 2024-07-25 01:03 | XMS_ITS | Encounter Summary ---
Author Organization [facility] [place] [address] Care Team Providers Care Non Destructive Tester Name Role Phone Natty Mckinney MD Primary Care Provider [phone] Encounter Details Date Type Department Care Team (Late st Contact Info) Description 05/17/2020 Telephone Radiation Oncology at [address] [phone] Tamara Boone RN Social History [...] PM EDT Radiation Oncology Nurse Telephone Note [facility] [place], [place] ----- Message from Santiago Arroyo MD [...] on filedocumented in this encounter Care Teams Non Destructive Tester Relationship Specialty Start Date End Date Natty Mckinney MD [address] [place] [address] PCP - General 10/11/10 documented as of this encounter
--- OUTSIDE RECORDS SUMMARY | 2024-07-25 01:03 | XMS_ITS | Encounter Summary ---
Author Organization [facility] [place] [address] Care Team Providers Care Wire Rope Fabrication Supervisor Name Role Phone Natty Mckinney MD Primary Care Provider [phone] Reason for Visit * Consultation (Routine) - Closed Specialty Diagnoses / Procedures Referred By Claire guerrero Referred To Contact Radiation Oncology Diagnoses Malignant neoplasm of prostate Procedures Simulation for Radiation Therapy Planning Santiago Arroyo MD [address] [place] [address] [place] [address] [facility] Rad Onc Office [address] [place] [phone] Referral ID Status Reason Start Date Expiration Date V isits Requested Visits Authorized [id number] Closed Consult, Test & Treat 12/22/2019 12/21/2020 1 1 Encounter Details Date Type Department Care Team (Late st Contact Info) Description 01/28/2020 2:30 PM EDT Ancillary Appointment Radiation Oncology at [address] [phone] Santiago Arroyo MD [address] [place] [address] [place] [address] Social History Tobacco Use Types [...] treatment time and check in with the Manager Business Process ?? You will have your vital signs [...] Note for External Beam Radiation Treatment Planning [facility] Mark Monte is a 54 y.o. year [...] of any short term side effects or termite control service representative complications of therapy. I anticipate his SBRT [...] on filedocumented in this encounter Care Teams Wire Rope Fabrication Supervisor Relationship Specialty Start Date End Date Natty Mckinney MD [address] [place] [address] PCP - General 10/11/10 documented as of this encounter
--- OUTSIDE RECORDS SUMMARY | 2024-07-25 01:03 | XMS_ITS | Encounter Summary ---
Author Organization [facility] [place] [address] Care Team Providers Care Animal Herder Name Role Phone Natty Mckinney MD Primary Care Provider [phone] Reason for Referral * Diagnostic Test (Routine) - Closed Specialty Diagnoses / Procedures Referred By Contac t Referred To Contact Radiology Diagnoses Elevated PSA Procedures MRI Pelvis wwo (Prostate) Daniele Seals MD [facility] [place] [address] [place] [address] Referral ID Status Reason Start Date Expiration Date V isits Requested Visits Authorized [id number] Closed Specialty Service Requested 09/08/2019 09/07/2020 1 1 Reason for Visit * Diagnostic Test (Routine) - Closed Specialty Diagnoses / Procedures Referred By Contac t Referred To Contact Radiology Diagnoses Elevated PSA Procedures MRI Pelvis wwo (Prostate) Daniele Seals MD [facility] [place] [address] [place] [address] Referral ID Status Reason Start Date Expiration Date V isits Requested Visits Authorized [id number] Closed Specialty Service Requested 09/08/2019 09/07/2020 1 1 Encounter Details Date Type Department Care Team (Latest Contact Info) Description 09/23/2019 4:27 PM EST - 09/23/2019 11:59 PM EST Hospital Encounter MRI [facility] [place] [address] Daniele Seals MD [facility] [place] [address] Elevated PSA Discharge Disposition: Home Social History [...] PSA level: 6.5 Date of sextant biopsy:N/A Congers score: N/A TECHNIQUE: Multiparametric MRI of the [...] mLs documented in this encounter Care Teams Animal Herder Relationship Specialty Start Date End Date Natty Mckinney MD [address] [place] [address] PCP - General 10/11/10 documented as of this encounter
--- OUTSIDE RECORDS SUMMARY | 2024-07-25 01:03 | XMS_ITS | Encounter Summary ---
Author Organization [facility] [place] [address] Care Team Providers Care Hospitality Intern Name Role Phone Natty Mckinney MD Primary Care Provider [phone] Encounter Details Date Type Department Care Team (Late st Contact Info) Description 05/19/2020 Telephone Radiation Oncology at [address] [address] Arun Lyle Social History Tobacco [...] on filedocumented in this encounter Care Teams Hospitality Intern Relationship Specialty Start Date End Date Natty Mckinney MD [address] [place] [address] PCP - General 10/11/10 documented as of this encounter
--- OUTSIDE RECORDS SUMMARY | 2024-07-25 01:03 | XMS_ITS | Encounter Summary ---
Author Organization [facility] [place] [address] Care Team Providers Care Data Systems Analyst Name Role Phone Natty Mckinney MD Primary Care Provider [phone] Encounter Details Date Type Department Care Team (Latest Contact Info) Description 03/12/2020 10:00 AM EDT Procedure visit Radiation Oncology at [address] [address] Benito Samayoa MD [facility] [place] [address] Malignant neoplasm of prostate Social History Tobacco [...] prostate documented in this encounter Care Teams Data Systems Analyst Relationship Specialty Start Date End Date Natty Mckinney MD [address] [place] [address] PCP - General 10/11/10 documented as of this encounter
--- OUTSIDE RECORDS SUMMARY | 2024-07-25 01:04 | XMS_ITS | Encounter Summary ---
Author Organization [facility] Address [address] [place] [address] Care Team Providers Care Wood Craftsman Name Role Phone Unavailable Primary Care Provider Unavailabl e Encounter Details Date Type Department Care Team (Late st Contact Info) Description 02/23/2003 Results Only *[facility] Gastroenterology - [place] [address] [place] [address] Gold Chavez MD Social History Tobacco Use [...] & PF4 ORD ERABLES Performing Organization Address [facility] Co de Phone Number [facility] [address] [place] [address] * (ABNORMAL) IRON (02/23/2003 11:57 EDT) Pathologist [facility] Iron 38(L) 70 - 180 ug/dl [facility] 02/23/2003 11:5 7 EDT 02/23/2003 11:58 EDT Gold Chavez MD CHEMISTRY & BLOOD GA S ORDERABLES Performing Organization Address [facility] Co de Phone Number [facility] [address] [place] [address] * (ABNORMAL) IBC (02/23/2003 11:57 EDT) Pathologist [facility] TIBC 499(H) 225 - 425 ug/dl [facility] 02/23/2003 11:5 7 EDT 02/23/2003 11:58 EDT Gold Chavez MD CHEMISTRY & BLOOD GA S ORDERABLES Performing Organization Address [facility] Co de Phone Number [facility] [address] [place] [address] * (ABNORMAL) GGT (02/23/2003 11:57 EDT) Pathologist [facility] GGT 79(H) 15 - 73 U/L [facility] 02/23/2003 11:5 7 EDT 02/23/2003 11:58 EDT Gold Chavez MD CHEMISTRY & BLOOD GA S ORDERABLES Performing Organization Address [facility] Phone Number [facility] [address] [place] [address] * FOLATE (02/23/2003 11:57 EDT) Pathologist [facility] Folate >24.0 ng/mL [facility] Comment: Deficient: ??Less than 3.4 ng/mL Indeterminate: ??3.4-5.4 ng/mL Normal: ??Greater than 5.4 ng/mL Note new reference range. 02/23/2003 11:5 7 EDT 02/23/2003 11:58 EDT Gold Chavez MD CHEMISTRY & BLOOD GA S ORDERABLES Performing Organization Address [facility] Phone Number [facility] [address] [place] [address] * (ABNORMAL) FERRITIN (02/23/2003 11:57 EDT) Pathologist [facility] Ferritin 40(L) 42 - 313 ng/ml [facility] 02/23/2003 11:5 7 EDT 02/23/2003 11:58 EDT Gold Chavez MD CHEMISTRY & BLOOD GA S ORDERABLES Performing Organization Address [facility] de Phone Number [facility] [address] [place] [address] * COMPREHENSIVE METABOLIC PANEL (CMP) (02/23/2003 11:57 EDT) Pathologist [facility] Potassium 4.4 3.5 - 5.0 mEq/L [facility] [...] GA S ORDERABLES [facility] [address] [place] [address] * (ABNORMAL) HEMAGRAM AND DIFFERENTIAL (02/23/2003 11:57 [...] & DNA PROBE ORDERABLES Performing Organization Address [facility] de Phone Number [facility] [address] [place] [address] * (ABNORMAL) VITAMIN B12 (02/23/2003 11:57 EDT) Vitamin B-12 >2000(H) 250 - 1100 pg/ml [facility] 02/23/2003 11:5 7 EDT 02/23/2003 11:58 EDT Gold Chavez MD CHEMISTRY & BLOOD GA S ORDERABLES Performing Organization Address [facility] de Phone Number [facility] [address] [place] [address] documented in this encounter Visit Diagnoses Not on filedocumented in this encounter
--- OUTSIDE RECORDS SUMMARY | 2024-07-25 01:04 | XMS_ITS | Encounter Summary ---
Author Organization [facility] Address [address] [place] [address] Care Team Providers Care Sprinkler Driver Name Role Phone Natty Mckinney MD Primary Care Provider [phone] Encounter Details Date Type Department Care Team (Late st Contact Info) Description 03/24/2024 Lab Requisition [facility] Pathology & Laboratory Medicine - [facility] [address] [place] [address] Outr Resulting Lab, Provider Social History Tobacco Use Types Packs/Day Years Used Date Smoking Tobacco: Every Day Cigarettes 1.5 48.7 Started: 1976 Smokeless Tobacco: Never Comments:Cut down [...] 20 - 40 mg/dL 03/25/2024 10:29 EDT [facility] Blood VENOUS BLOOD / Unknown 03/24/2024 12:55 EDT 03/24/2024 22:21 EDT Provider Outr Resulting Lab CHEMISTRY & BLOOD GAS ORDERABLES [facility] [address] [place], [place] [id number] documented in this encounter Visit Diagnoses Not on filedocumented in this encounter Care Teams Sprinkler Driver Relationship Specialty Start Date End Date Natty Mckinney MD [address] [place] [address] PCP - General 09/29/15 documented as of this encounter
--- OUTSIDE RECORDS SUMMARY | 2024-07-25 01:04 | XMS_ITS | Encounter Summary ---
Author Organization [facility] Address [address] [place] [address] Care Team Providers Care Food Order Expediter Name Role Phone Natty Mckinney MD Primary Care Provider [phone] Encounter Details Date Type Department Care Team (Late st Contact Info) Description 09/24/2023 Lab Requisition [facility] Pathology & Laboratory Medicine - [facility] [address] [place] [address] Outr Resulting Lab, Provider Social History Tobacco [...] 20 - 40 mg/dL 09/25/2023 10:50 EST [facility] Blood VENOUS BLOOD / Unknown 09/24/2023 13:25 EST 09/24/2023 22:01 EST Provider Outr Resulting Lab CHEMISTRY & BLOOD GAS ORDERABLES [facility] [address] [place] [address] documented in this encounter Visit Diagnoses Not on filedocumented in this encounter Care Teams Food Order Expediter Relationship Specialty Start Date End Date Natty Mckinney MD [address] [place] [address] PCP - General 09/29/15 documented as of this encounter
--- OUTSIDE RECORDS SUMMARY | 2024-07-25 01:04 | XMS_ITS | Encounter Summary ---
Author Organization [facility] Address [address] [place] [address] Care Team Providers Care Watch Assembly Inspector Name Role Phone Natty Mckinney MD Primary Care Provider [phone] Encounter Details Date Type Department Care Team (Late st Contact Info) Description 10/28/2021 Lab Requisition [facility] Pathology & Laboratory Medicine - [facility] [address] [place] [address] Outr Resulting Lab, Provider Social History Tobacco [...] gonorrhoeae Result Negative Negative 10/31/2021 15:21 EST [facility] Chlamydia trachomatis Result Negative Negative 10/31/2021 15:21 EST [facility] Urine URINE / Unknown 10/27/2021 1 5:30 EST 10/28/2021 21:18 EST Provider Outr Resulting Lab MICROBIOLOGY - GENERAL ORDERABLES Performing Organization Address City/State/[facility] Co de Phone Number [facility] [address] [place] [address] documented in this encounter Visit Diagnoses Not on filedocumented in this encounter Care Teams Watch Assembly Inspector Relationship Specialty Start Date End Date Natty Mckinney MD [address] [place] [address] PCP - General 09/29/15 documented as of this encounter
--- OUTSIDE RECORDS SUMMARY | 2024-07-25 01:04 | XMS_ITS | Encounter Summary ---
Author Organization [facility] Address [address] [place] [address] Care Team Providers Care Hot Dog Vendor Name Role Phone Unavailable Primary Care Provider Adi e Encounter Details Date Type Department Care Team (Late st Contact Info) Description 12/04/2001 Results Only [facility] - [facility] [address] [place] [address] Yoel Marie, DO [address] [place] [address] Social History Tobacco Use Types [...] ? KRISHAN MONTE ? Accession #: ? [id number] ? : ? 1965 (Age: 36) ??M [...] A2 ?Smaller tissues A3 ?Largest tissue A4 ?Ceramic Tile Setter additional skin ([facility] [place])/[facility] End of Report [facility] 12/04/2001 12/05/2001 9:3 9 EST Yoel Marie DO PATHOLOGY ORDER MICHAEL [facility] [address] [place] [address] documented in this encounter Visit Diagnoses Not on filedocumented in this encounter
--- OUTSIDE RECORDS SUMMARY | 2024-07-25 01:04 | XMS_ITS | Clinical Summary ---
Author Organization [facility] Address [address] [place] [address] Care Team Providers Care Operating System Programmer Name Role Phone Natty Mckinney MD Primary Care Provider [phone] Allergies No known active allergies Medications Medication [...] naloxone (NARCAN) 4 mg/actuation nasal spray 1 [place] by nasal route as needed for Opioid [...] pouches part #8817 Active Ostomy Supplies by [facility] (non-drug; combo route) route daily. Aquiles wafers [...] subsequent encounter 01/05/2021 Syncope 01/05/2021 Ileostomy status ([facility]) 01/05/2021 Chronic abdominal pain 01/05/2021 Crohn's disease ([facility]) 01/05/2021 Encounters Date Type Department Care Team Description 07/07/2024 Lab Requisition [facility] Pathology & Laboratory Medicine - [address] [address] Outr Resulting Lab, Provider from Last 3 Months Surgical History Surgery Date Site/Laterality Comments SMALL INTESTINE SURGERY ileostomy 1988 due to intractable crohn's flare Medical History Medical History Date Comments Crohn disease ([facility]) Prostate CA ([facility]) radiation [facility] Knee osteoarthritis Family History Medical History Relation Comments Crohn's Disease Son Relation Status Comments Son Social History Tobacco Use Types Packs/Day Years Used Date Smoking Tobacco: Every Day Cigarettes 1.5 48.7 Started: 1976 Smokeless Tobacco: Never Tobacco Cessation:Counseling [...] Priority Date/Time Associated Diagnosis Comments PREALBUMIN Routine 07/07/2024 14:00 EDT from Last 3 Months Results * PREALBUMIN (07/07/2024 14:00 EDT) Prealbumin 23 20 - 40 mg/dL 07/08/2024 11:30 EDT [facility] Blood VENOUS BLOOD / Unknown 07/07/2024 14:00 EDT 07/07/2024 22:26 EDT Provider Outr Resulting Lab CHEMISTRY & BLOOD GAS ORDERABLES [facility] [address] [place], [place] [id number] from Last 3 Months Care Teams Operating System Programmer Relationship Specialty Start Date End Date Natty Mckinney MD [address] [place] [address] PCP - General 09/29/15
--- OUTSIDE RECORDS SUMMARY | 2024-07-25 01:04 | XMS_ITS | Encounter Summary ---
Author Organization [facility] Address [address] [place] [address] Care Team Providers Care Hvac Design Engineer Name Role Phone Natty Mckinney MD Primary Care Provider [phone] Encounter Details Date Type Department Care Team (Late st Contact Info) Description 04/12/2023 Lab Requisition [facility] Pathology & Laboratory Medicine - [facility] [address] [place] [address] Outr Resulting Lab, Provider Social History Tobacco [...] 20 - 40 mg/dL 04/13/2023 9:57 EDT [facility] Blood VENOUS BLOOD / Unknown 04/12/2023 10:47 EDT 04/12/2023 21:05 EDT Provider Outr Resulting Lab CHEMISTRY & BLOOD GAS ORDERABLES [facility] [address] [place] [address] documented in this encounter Visit Diagnoses Not on filedocumented in this encounter Care Teams Hvac Design Engineer Relationship Specialty Start Date End Date Natty Mckinney MD [address] [place] [address] PCP - General 09/29/15 documented as of this encounter
--- OUTSIDE RECORDS SUMMARY | 2024-07-25 01:04 | XMS_ITS | Encounter Summary ---
Author Organization [facility] Address [address] [place] [address] Care Team Providers Care Brake Engineer Name Role Phone Natty Mckinney MD Primary Care Provider [phone] Encounter Details Date Type Department Care Team (Late st Contact Info) Description 12/03/2023 Lab Requisition [facility] Pathology & Laboratory Medicine - [facility] [address] [place] [address] Outr Resulting Lab, Provider Social History Tobacco [...] 20 - 40 mg/dL 12/04/2023 9:51 EST [facility] Blood VENOUS BLOOD / Unknown 12/03/2023 13:00 EST 12/03/2023 21:40 EST Provider Outr Resulting Lab CHEMISTRY & BLOOD GAS ORDERABLES [facility] [address] [place] [address] documented in this encounter Visit Diagnoses Not on filedocumented in this encounter Care Teams Brake Engineer Relationship Specialty Start Date End Date Natty Mckinney MD [address] [place] [address] PCP - General 09/29/15 documented as of this encounter
--- OUTSIDE RECORDS SUMMARY | 2024-07-25 01:04 | XMS_ITS | Encounter Summary ---
Author Organization [facility] Address [address] [place] [address] Care Team Providers Care Helicopter Repairer Name Role Phone Natty Mckinney MD Primary Care Provider [phone] Encounter Details Date Type Department Care Team (Late st Contact Info) Description 10/29/2023 Lab Requisition [facility] Pathology & Laboratory Medicine - [facility] [address] [place] [address] Outr Resulting Lab, Provider Social History Tobacco [...] 20 - 40 mg/dL 10/30/2023 9:39 EST [facility] Blood VENOUS BLOOD / Unknown 10/29/2023 12:55 EST 10/29/2023 21:59 EST Provider Outr Resulting Lab CHEMISTRY & BLOOD GAS ORDERABLES [facility] [address] [place] [address] documented in this encounter Visit Diagnoses Not on filedocumented in this encounter Care Teams Helicopter Repairer Relationship Specialty Start Date End Date Natty Mckinney MD [address] [place] [address] PCP - General 09/29/15 documented as of this encounter
--- OUTSIDE RECORDS SUMMARY | 2024-07-25 01:04 | XMS_ITS | Encounter Summary ---
Author Organization [facility] Address [address] [place] [address] Care Team Providers Care Anesthesia Tech Name Role Phone Natty Mckinney MD Primary Care Provider [phone] Encounter Details Date Type Department Care Team (Late st Contact Info) Description 06/25/2023 Lab Requisition [facility] Pathology & Laboratory Medicine - [facility] [address] [place] [address] Outr Resulting Lab, Provider Social History Tobacco [...] 20 - 40 mg/dL 06/26/2023 9:40 EDT [facility] Blood VENOUS BLOOD / Unknown 06/25/2023 11:30 EDT 06/25/2023 21:21 EDT Provider Outr Resulting Lab CHEMISTRY & BLOOD GAS ORDERABLES [facility] [address] [place] [address] documented in this encounter Visit Diagnoses Not on filedocumented in this encounter Care Teams Anesthesia Tech Relationship Specialty Start Date End Date Natty Mckinney MD [address] [place] [address] PCP - General 09/29/15 documented as of this encounter
--- OUTSIDE RECORDS SUMMARY | 2024-07-25 01:04 | XMS_ITS | Encounter Summary ---
Author Organization [facility] Address [address] [place] [address] Care Team Providers Care Mail Sorting Supervisor Name Role Phone Natty Mckinney MD Primary Care Provider [phone] Encounter Details Date Type Department Care Team (Late st Contact Info) Description 08/20/2023 Lab Requisition [facility] Pathology & Laboratory Medicine - [facility] [address] [place] [address] Outr Resulting Lab, Provider Social History Tobacco [...] PSA 1.5 <=3.5 ng/mL 08/21/2023 11:41 EDT [facility] Blood VENOUS BLOOD / Unknown 08/20/2023 13:00 EDT 08/20/2023 21:34 EDT Narrative [facility] - 08/21/2023 11:41 EDT NOTE: Serum PSA concentration should not be interpreted as absolute evidence for the presence or absence of malignant disease. Assayed on [employer] XPT using chemiluminescent technology.??Values obtained by using different assay methods cannot be used interchangeably. Provider Outr Resulting Lab CHEMISTRY & BLOOD GAS ORDERABLES [facility] [address] [place] [address] documented in this encounter Visit Diagnoses Not on filedocumented in this encounter Care Teams Mail Sorting Supervisor Relationship Specialty Start Date End Date Natty Mckinney MD [address] [place] [address] PCP - General 09/29/15 documented as of this encounter
--- OUTSIDE RECORDS SUMMARY | 2024-07-25 01:04 | XMS_ITS | Encounter Summary ---
Author Organization [facility] Address [address] [place] [address] Care Team Providers Care Fruit Harvest Machine Operator Name Role Phone Natty Mckinney MD Primary Care Provider [phone] Encounter Details Date Type Department Care Team (Late st Contact Info) Description 04/21/2024 Lab Requisition [facility] Pathology & Laboratory Medicine - [facility] [address] [place] [address] Outr Resulting Lab, Provider Social History Tobacco [...] 40 mg/dL 04/22/2024 10:27 EDT [facility] Blood VENOUS BLOOD / Unknown 04/21/2024 10:35 EDT 04/21/2024 16:59 EDT Provider Outr Resulting Lab CHEMISTRY & BLOOD GAS ORDERABLES [facility] [address] [place], [place] [id number] documented in this encounter Visit Diagnoses Not on filedocumented in this encounter Care Teams Fruit Harvest Machine Operator Relationship Specialty Start Date End Date Natty Mckinney MD [address] [place] [address] PCP - General 09/29/15 documented as of this encounter
--- OUTSIDE RECORDS SUMMARY | 2024-07-25 01:04 | XMS_ITS | Encounter Summary ---
Author Organization [facility] [place] [address] Care Team Providers Care Pattern Carrier Name Role Phone Natty Mckinney MD Primary Care Provider [phone] Reason for Referral * Diagnostic Test (Routine) - Closed Specialty Diagnoses / Procedures Referred By Contangela t Referred To Contact Radiology Diagnoses Elevated PSA Procedures MRI Pelvis wwo (Prostate) Daniele Seals MD [facility] [place] [address] [place] [address] Referral ID Status Reason Start Date Expiration Date V isits Requested Visits Authorized [id number] Closed Specialty Service Requested 09/08/2019 09/07/2020 1 1 Encounter Details Date Type Department Care Team (Late st Contact Info) Description 09/08/2019 8:00 AM EDT Office Visit [place] [phone] Daniele Seals MD [facility] [place] [address] Elevated PSA Social History Tobacco Use Types [...] Siri Gunn - 09/08/2019 8:00 AM EDT [facility] SECTION OF UROLOGY Urologic Outpatient Consult Note [...] 2017), SOB Cardiovascular: Denies chest pain, arrhythmia, [place] GI:Denies GI bleed, GERD, constipation or diarrhea. [...] Section of Urology [facility] Office: [phone] I have seen the patient and reviewed [...] PSA level: 6.5 Date of sextant biopsy:N/A Valmeyer score: N/A TECHNIQUE: Multiparametric MRI of the [...] (PSA) documented in this encounter Care Teams Pattern Carrier Relationship Specialty Start Date End Date Natty Mckinney MD [address] [place] [address] PCP - General 10/11/10 documented as of this encounter
--- OUTSIDE RECORDS SUMMARY | 2024-07-25 01:04 | XMS_ITS | Encounter Summary ---
Author Organization [facility] Address [address] [place] [address] Care Team Providers Care Account Services Coordinator Name Role Phone Natty Mckinney MD Primary Care Provider [phone] Reason for Visit * Reason Comments New Patient Visit Joint pain- pt state s knees (right one being replaced) and hands right [facility] joint. Left hip points to joint. Encounter Details Date Type Department Care Team (Late st Contact Info) Description 01/06/2021 14:15 EST Office Visit [facility] Rheumatology [address] [place] [address] Ashley Massey MD [address] [facility] [address] [place] [address] Left hip pain (Primary Dx); [...] Dr Irizarry Ice and rest the wrists [facility] Patient Instructions Learning About Arthritis at [...] and less strength when you pinch or coach cleaner things. Symptoms may come and go, stay [...] manage mild or moderate arthritis pain with [id number] pain relievers. These include medicines that reduce [...] Where can you learn more? Go to [email or web address] MOBILE COMMUNICATIONS EQUIPMENT or log into your [employer] account at [email or web address] Enter T110 in the search box to learn more about Learning About Arthritis at the Base of the Thumb. Current as of: October 27, 2019?Content Version: 12.6 ?? 5310-5920 [employer]. Care instructions adapted under license by [facility]. If you have questions about a medical condition or this instruction, always ask your healthcare professional. [employer] disclaims any warranty or liability for your use of this information. documented in this encounter Progress Notes * Ashley Massey MD - 01/06/2021 5095 EST [facility] Rheumatology Chief Complaint Patient presents with [...] Knee osteoarthritis ??? Prostate CA (HCC-CMS) radiation [facility] Family History Problem Relation Age of Onset ??? Crohn's Disease Son Social History: Smoker 2 grown children. From [facility]. Family members nearby. No alcohol.Occasional marijuana Review [...] reviewed Notes from urology radiation team at [facility] PCP visits and labs. Labs: Lab Requisition [...] 01/06/2021 documented in this encounter Care Teams Account Services Coordinator Relationship Specialty Start Date End Date Natty Mckinney MD [address] [place] [address] PCP - General 09/29/15 documented as of this encounter
--- OUTSIDE RECORDS SUMMARY | 2024-07-25 01:04 | XMS_ITS | Encounter Summary ---
Author Organization [facility] Address [address] [place] [address] Care Team Providers Care Bellperson Name Role Phone Natty Mckinney MD Primary Care Provider Encounter Details Date Type Department Care Team (Late st Contact Info) Description 05/29/2023 Lab Requisition [facility] Pathology & Laboratory Medicine - [facility] [address] [place] [address] Outr Resulting Lab, Provider Social History Tobacco [...] 20 - 40 mg/dL 05/30/2023 9:28 EDT [facility] Blood VENOUS BLOOD / Unknown 05/28/2023 15:20 EDT 05/29/2023 15:29 EDT Provider Outr Resulting Lab CHEMISTRY & BLOOD GAS ORDERABLES [facility] [address] [place] [address] documented in this encounter Visit Diagnoses Not on filedocumented in this encounter Care Teams Bellperson Relationship Specialty Start Date End Date Natty Mckinney MD [address] [place] [address] PCP - General 09/29/15 documented as of this encounter
--- OUTSIDE RECORDS SUMMARY | 2024-07-25 01:04 | XMS_ITS | Encounter Summary ---
Author Organization [facility] [place] [address] Care Team Providers Care Ore Miner Name Role Phone Natty Mckinney MD Primary Care Provider [phone] Encounter Details Date Type Department Care Team (Latest Contact Info) Description 09/08/2019 7:00 AM EDT - 09/08/2019 11:59 PM EDT Hospital Encounter [place] [address] Elevated PSA Discharge Disposition: Home Social History [...] total and free (09/08/2019 7:52 AM EDT) Prostate Specific Antigen (Ultrasensitiv e) 6.38(H) 0.00 - 4.00 ng/mL [facility] Prostate Specific Antigen, Free 0.6 ng/mL [facility] PSA % Free 10 % [facility] Comment: Probability of finding AUTOMOTIVE SERVICE ADVISOR on needle biopsy by age in years: [...] Lab Daniele Seals MD CHEMISTRY ORDERABL ES [facility] [place] [address] documented in this encounter Visit Diagnoses Diagnosis Elevated PSA Elevated prostate specific antigen (PSA) documented in this encounter Care Teams Ore Miner Relationship Specialty Start Date End Date Natty Mckinney MD [address] [place] [address] PCP - General 10/11/10 documented as of this encounter
--- OUTSIDE RECORDS SUMMARY | 2024-07-25 01:04 | XMS_ITS | Encounter Summary ---
Author Organization [facility] Address [address] [place] [address] Care Team Providers Care Head Porter Baggage Name Role Phone Natty Mckinney MD Primary Care Provider [phone] Encounter Details Date Type Department Care Team (Late st Contact Info) Description 01/28/2024 Lab Requisition [facility] Pathology & Laboratory Medicine - [facility] [address] [place] [address] Outr Resulting Lab, Provider Social History Tobacco [...] 20 - 40 mg/dL 01/29/2024 17:02 EDT [facility] Blood VENOUS BLOOD / Unknown 01/28/2024 12:55 EDT 01/28/2024 21:38 EDT Provider Outr Resulting Lab CHEMISTRY & BLOOD GAS ORDERABLES [facility] [address] [place], [place] [address] documented in this encounter Visit Diagnoses Not on filedocumented in this encounter Care Teams Head Porter Baggage Relationship Specialty Start Date End Date Natty Mckinney MD [address] [place] [address] PCP - General 09/29/15 documented as of this encounter
--- OUTSIDE RECORDS SUMMARY | 2024-07-25 01:04 | XMS_ITS | Encounter Summary ---
Author Organization [facility] Address [address] [place] [address] Care Team Providers Care Polysomnography Technician Name Role Phone Unavailable Primary Care Provider Unavailabl e Encounter Details Date Type Department Care Team (Latest Contact Info) Description 03/09/2003 7:16 EDT - 03/09/2003 11:59 EDT Hospital Encounter [address] [address] Gold Chavez MD Discharge Disposition: Auto Discharge [...]
--- OUTSIDE RECORDS SUMMARY | 2024-07-25 01:04 | XMS_ITS | Encounter Summary ---
Author Organization [facility] Address [address] [place] [address] Care Team Providers Care Stripper Cutter Machine Name Role Phone Natty Mckinney MD Primary Care Provider [phone] Encounter Details Date Type Department Care Team (Late st Contact Info) Description 02/25/2024 Lab Requisition [facility] Pathology & Laboratory Medicine - [facility] [address] [place] [address] Outr Resulting Lab, Provider Social History Tobacco [...] 20 - 40 mg/dL 02/26/2024 9:26 EDT [facility] Blood VENOUS BLOOD / Unknown 02/25/2024 12:40 EDT 02/25/2024 21:55 EDT Provider Outr Resulting Lab CHEMISTRY & BLOOD GAS ORDERABLES [facility] [address] [place], [place] [address] documented in this encounter Visit Diagnoses Not on filedocumented in this encounter Care Teams Stripper Cutter Machine Relationship Specialty Start Date End Date Natty Mckinney MD [address] [place] [address] PCP - General 09/29/15 documented as of this encounter
--- OUTSIDE RECORDS SUMMARY | 2024-07-25 01:04 | XMS_ITS | Encounter Summary ---
Author Organization [facility] Address [address] [place] [address] Care Team Providers Care Draw Off Worker Name Role Phone Natty Mckinney MD Primary Care Provider [phone] Encounter Details Date Type Department Care Team (Late st Contact Info) Description 04/17/2020 Lab Requisition [facility] Pathology & Laboratory Medicine - [address] [id number] Outr Resulting Lab, Provider Social History Tobacco [...] 0.0 - 3.5 ng/mL 04/19/2020 10:28 EDT [facility] Blood VENOUS BLOOD / Unknown 04/16/2020 10:35 EDT 04/18/2020 16:47 EDT Narrative [facility] - 04/19/2020 10:28 EDT NOTE: Serum PSA concentration should not be interpreted as absolute evidence for the presence or absence of malignant disease. Assayed on Siemens ADVIA Connectipityaur XPT using chemiluminescent technology.??Values obtained by using different assay methods cannot be used interchangeably. Provider Outr Resulting Lab CHEMISTRY & BLOOD GAS ORDERABLES [facility] [address] [place] [address] documented in this encounter Visit Diagnoses Not on filedocumented in this encounter Care Teams Draw Off Worker Relationship Specialty Start Date End Date Natty Mckinney MD [address] [place] [address] PCP - General 09/29/15 documented as of this encounter
--- OUTSIDE RECORDS SUMMARY | 2024-07-25 01:04 | XMS_ITS | Encounter Summary ---
Author Organization [facility] Address [address] [place] [address] Care Team Providers Care Client Care Consultant Name Role Phone Unavailable Primary Care Provider Adi e Encounter Details Date Type Department Care Team (Late st Contact Info) Description 07/10/[address] [facility] [address] [place] [address] Yoel Marie, DO [address] [place] [address] Social History Tobacco Use Types [...] ? KRISHAN MONTE ? Accession #: ? [id number] ? : ? 1965 (Age: 38) ??M [...] Yoel Marie DO PATHOLOGY ORDER [facility] [address] [place] [address] documented in this encounter Visit Diagnoses Not on filedocumented in this encounter
--- OUTSIDE RECORDS SUMMARY | 2024-07-25 01:04 | XMS_ITS | Encounter Summary ---
Author Organization [facility] Address [address] [place] [address] Care Team Providers Care Final Touch Up Painter Name Role Phone Natty Mckinney MD Primary Care Provider [phone] Encounter Details Date Type Department Care Team (Late st Contact Info) Description 12/31/2023 Lab Requisition [facility] Pathology & Laboratory Medicine - [facility] [address] [place] [address] Outr Resulting Lab, Provider Social History Tobacco [...] 10:13 EST [facility] Blood VENOUS BLOOD / Unknown 12/31/2023 13:00 EST 12/31/2023 21:20 EST Provider Outr Resulting Lab CHEMISTRY & BLOOD GAS ORDERABLES [facility] [address] [place] [address] documented in this encounter Visit Diagnoses Not on filedocumented in this encounter Care Teams Final Touch Up Painter Relationship Specialty Start Date End Date Natty Mckinney MD [address] [place] [address] PCP - General 09/29/15 documented as of this encounter
--- OUTSIDE RECORDS SUMMARY | 2024-07-25 01:04 | XMS_ITS | Encounter Summary ---
Author Organization [facility] Address [address] [place] [address] Care Team Providers Care Imaging Services Director Name Role Phone Unavailable Primary Care Provider Unavailpoly e Encounter Details Date Type Department Care Team (Latest Contact Info) Description 02/23/2003 13:27 EDT Hospital Encounter [facility] - Other [address] [place] [address] Gold Chavez MD Unknown, Provider, Discharge Disposition: [...]
--- OUTSIDE RECORDS SUMMARY | 2024-07-25 01:04 | XMS_ITS | Encounter Summary ---
Author Organization [facility] Address [address] [place] [address] Care Team Providers Care Automotive Starter Repairer Name Role Phone Natty Mckinney MD Primary Care Provider [phone] Encounter Details Date Type Department Care Team (Late st Contact Info) Description 05/07/2023 Lab Requisition [facility] Pathology & Laboratory Medicine - [facility] [address] [place] [address] Outr Resulting Lab, Provider Social History Tobacco [...] 20 - 40 mg/dL 05/08/2023 9:37 EDT [facility] Blood VENOUS BLOOD / Unknown 05/07/2023 10:52 EDT 05/07/2023 21:44 EDT Provider Outr Resulting Lab CHEMISTRY & BLOOD GAS ORDERABLES [facility] [address] [place] [address] documented in this encounter Visit Diagnoses Not on filedocumented in this encounter Care Teams Automotive Starter Repairer Relationship Specialty Start Date End Date Natty Mckinney MD [address] [place] [address] PCP - General 09/29/15 documented as of this encounter
--- OUTSIDE RECORDS SUMMARY | 2024-07-25 01:04 | XMS_ITS | Encounter Summary ---
Author Organization [facility] Address [address] [place] [address] Care Team Providers Care Stove Fitter Name Role Phone Natty Mckinney MD Primary Care Provider [phone] Encounter Details Date Type Department Care Team (Late st Contact Info) Description 04/09/2023 Lab Requisition [facility] Pathology & Laboratory Medicine - [facility] [address] [place] [address] Outr Resulting Lab, Provider Social History Tobacco [...] 20 - 40 mg/dL 04/10/2023 9:40 EDT [facility] Blood VENOUS BLOOD / Unknown 04/09/2023 10:46 EDT 04/09/2023 21:10 EDT Provider Outr Resulting Lab CHEMISTRY & BLOOD GAS ORDERABLES [facility] [address] [place] [address] documented in this encounter Visit Diagnoses Not on filedocumented in this encounter Care Teams Stove Fitter Relationship Specialty Start Date End Date Natty Mckinney MD [address] [place] [address] PCP - General 09/29/15 documented as of this encounter
--- OUTSIDE RECORDS SUMMARY | 2024-07-25 01:04 | XMS_ITS | Encounter Summary ---
Author Organization [facility] Address [address] [place] [address] Care Team Providers Care Wax Pourer Name Role Phone Natty Mckinney MD Primary Care Provider [phone] Encounter Details Date Type Department Care Team (Late st Contact Info) Description 07/30/2023 Lab Requisition [facility] Pathology & Laboratory Medicine - [facility] [address] [place] [address] Outr Resulting Lab, Provider Social History Tobacco [...] 20 - 40 mg/dL 07/31/2023 9:24 EDT [facility] Blood VENOUS BLOOD / Unknown 07/30/2023 14:20 EDT 07/30/2023 21:29 EDT Provider Outr Resulting Lab CHEMISTRY & BLOOD GAS ORDERABLES [facility] [address] [place] [address] documented in this encounter Visit Diagnoses Not on filedocumented in this encounter Care Teams Wax Pourer Relationship Specialty Start Date End Date Natty Mckinney MD [address] [place] [address] PCP - General 09/29/15 documented as of this encounter
--- OUTSIDE RECORDS SUMMARY | 2024-07-25 01:04 | XMS_ITS | Encounter Summary ---
Author Organization [facility] Address [address] [place] [address] Care Team Providers Care Loop Sewer Name Role Phone Natty Mckinney MD Primary Care Provider [phone] Encounter Details Date Type Department Care Team (Late st Contact Info) Description 12/22/2020 Lab Requisition [facility] Pathology & Laboratory Medicine - [facility] [address] [place], [place] [address] Outr Resulting Lab, Provider Social History Tobacco [...] 0.0 - 3.5 ng/mL 12/22/2020 17:47 EST [facility] Blood VENOUS BLOOD / Unknown 12/21/2020 13:54 EST 12/22/2020 16:13 EST Narrative [facility] - 12/22/2020 17:47 EST NOTE: Serum PSA concentration should not be interpreted as absolute evidence for the presence or absence of malignant disease. Assayed on Siemens ADVIA Centaur XPT using chemiluminescent technology.??Values obtained by using different assay methods cannot be used interchangeably. Provider Outr Resulting Lab CHEMISTRY & BLOOD GAS ORDERABLES [facility] [address] [place] [address] documented in this encounter Visit Diagnoses Not on filedocumented in this encounter Care Teams Loop Sewer Relationship Specialty Start Date End Date Natty Mckinney MD [address] [place] [address] PCP - General 09/29/15 documented as of this encounter
--- OUTSIDE RECORDS SUMMARY | 2024-07-25 01:04 | XMS_ITS | Encounter Summary ---
Author Organization [facility] Address [address] [place] [address] Care Team Providers Care Notch Grinder Name Role Phone Natty Mckinney MD Primary Care Provider Encounter Details Date Type Department Care Team (Late st Contact Info) Description 01/04/[address] [facility] - [facility] Rheumatology [address] [place] [address] Ashley Massey MD [address] [facility] [address] [place] [address] Social History Tobacco Use Types [...] by misc (non-drug; combo route) route daily. Diller wafers part # 9333 Ostomy Supplies Use as directed daily. Diller ostomy pouches part #5229 methadone (DOLOPHINE) 10 mg tablet Take 10 [...] naloxone (NARCAN) 4 mg/actuation nasal spray 1 [place] by nasal route as needed for Opioid [...] hours. added in this encounter Care Teams Notch Grinder Relationship Specialty Start Date End Date Natty Mckinney MD [address] [place] [address] PCP - General 09/29/15 documented as of this encounter
--- OUTSIDE RECORDS SUMMARY | 2024-07-25 01:04 | XMS_ITS | Encounter Summary ---
[facility] [place] [address] Care Team Providers Care Reach Truck Operator Name Role Phone Natty Mckinney MD Primary Care Provider [phone] Encounter Details Date Type Department Care Team (Latest Contact Info) Description 09/16/2019 Transcribe [place] [address] Natyt Mckinney MD [address] [place], [place] [id number] Stomach ache; Epidemic vomiting syndrome; Ileostomy status [...] Wb (MARCH) 177 70 - 180 nmol/L [facility] Comment: ADDITIONAL INFORMATION This test was developed and its performance characteristics determined by [facility] in a manner consistent with CLIA requirements. This test has not been cleared or approved by the U.S. Food and Drug Administration. Test Performed by: [facility] - [address] [address] Drain Technician: Valente Romero M.D. Ph.D.; CLIA# [id number] Blood specimen (specimen) 10/08/2019 7:14 AM EST 10/08/2019 8:35 AM EST Narrative Resulting Agency Comment Spec In Lab Natty Mckinney MD LAB SEND OUT ORDERAB LES Performing Organization Address [facility] Phone Number [facility] [place] [place] [address] * Sedimentation rate (10/08/2019 7:14 AM EST) Sedimentation Rate Automated 5 0 - 15 mm/hr [facility] Blood specimen (specimen) 10/08/2019 7:14 AM EST 10/08/2019 7:27 AM EST Narrative Resulting Agency Comment Spec In Lab aNtty Mckinney MD HEMATOLOGY ORDERABLE S Performing Organization Address [facility] Phone Number [facility] [place] [address] * CK (10/08/2019 7:14 AM EST) Creatine Kinase 59 0 - 200 unit/L [facility] Blood specimen (specimen) 10/08/2019 7:14 AM EST 10/08/2019 7:27 AM EST Narrative Resulting Agency Comment Spec In Lab Natty Mckinney MD CHEMISTRY ORDERABLES Performing Organization Address [facility] Phone Number [facility] [place] [place] [address] * Magnesium (10/08/2019 7:14 AM EST) Magnesium 0.87 0.69 - 1.07 mmol/L [facility] Blood specimen (specimen) 10/08/2019 7:14 AM EST 10/08/2019 7:27 AM EST Narrative Resulting Agency Comment Spec In Lab Natty Mckinney MD CHEMISTRY ORDERABLES Performing Organization Address [facility]/State/ZIP Co de Phone Number [facility] [place] [address] * (ABNORMAL) Vitamin A (10/08/2019 7:14 AM EST) Vitamin A (MARCH) 87.6(H) 32.5 - 78.0 mcg/dL [facility] Comment: ADDITIONAL INFORMATION This test was developed and its performance characteristics determined by [facility] in a manner consistent with CLIA requirements. This test has not been cleared or approved by the U.S. Food and Drug Administration. Test Performed by: [facility] [place] [address] Drain Technician: Valente Romero M.D. Ph.D.; CLIA# [id number] Blood specimen (specimen) 10/08/2019 7:14 AM EST 10/08/2019 10:36 AM EST Narrative Resulting Agency Comment Spec In Lab Natty Mckinney MD LAB SEND OUT ORDERAB LES [facility] [place] [address] documented in this encounter Visit Diagnoses Diagnosis Stomach ache Dyspepsia and other specified disorders of function of stomach Epidemic vomiting syndrome Ileostomy status documented in this encounter Care Teams Reach Truck Operator Relationship Specialty Start Date End Date Natty Mckinney MD [address] [place] [address] PCP - General 10/11/10 documented as of this encounter
--- OUTSIDE RECORDS SUMMARY | 2024-07-25 01:04 | XMS_ITS | Referral Summary ---
Author Organization [facility] Address [address] [place] [address] Care Team Providers Care Audio Operator Name Role Phone Natty Mckinney MD Primary Care Provider [phone] Encounters Date Type Department Care Team Description 07/07/2024 Lab Requisition [facility] Pathology & Laboratory Medicine - [address] [address] Outr Resulting Lab, Provider from Last 3 [...] naloxone (NARCAN) 4 mg/actuation nasal spray 1 [place] by nasal route as needed for Opioid [...] pouches part #8817 [facility] ([facility]; combo route) route daily. [place] wafers part # 1818 Active Active Problems Problem Noted Date Diagnosed Date Vitamin B12 deficiency 01/05/2021 Malaise and fatigue 01/05/2021 Prostate cancer ([facility]) 01/05/2021 Pain of knee joint on movement [...] subsequent encounter 01/05/2021 Syncope 01/05/2021 Ileostomy status ([facility]) 01/05/2021 Chronic abdominal pain 01/05/2021 Crohn's disease ([facility]) 01/05/2021 Social History Tobacco Use Types [...] 20 - 40 mg/dL 07/08/2024 11:30 EDT [facility] Blood VENOUS BLOOD / Unknown 07/07/2024 14:00 EDT 07/07/2024 22:26 EDT Provider Outr Resulting Lab CHEMISTRY & BLOOD GAS ORDERABLES [facility] [address] [place] [address] from Last 3 Months Care Teams Audio Operator Relationship Specialty Start Date End Date Natty Mckinney MD [address] [place] [address] PCP - General 09/29/15
--- OUTSIDE RECORDS SUMMARY | 2024-07-25 01:04 | XMS_ITS | Encounter Summary ---
Author Organization [facility] Address [address] [place] [address] Care Team Providers Care Software Tester Name Role Phone Natty Mckinney MD Primary Care Provider [phone] Encounter Details Date Type Department Care Team (Late st Contact Info) Description 06/08/2021 Lab Requisition [facility] Pathology & Laboratory Medicine - [facility] [address] [place] [address] Outr Resulting Lab, Provider Social History Tobacco [...] 0.0 - 3.5 ng/mL 06/08/2021 18:11 EDT [facility] Blood VENOUS BLOOD / Unknown 06/07/2021 14:38 EDT 06/08/2021 16:38 EDT Narrative [facility] - 06/08/2021 18:11 EDT NOTE: Serum PSA concentration should not be interpreted as absolute evidence for the presence or absence of malignant disease. Assayed on [employer] [facility] XPT using chemiluminescent technology.??Values obtained by using different assay methods cannot be used interchangeably. Provider Outr Resulting Lab CHEMISTRY & BLOOD GAS ORDERABLES [facility] [address] [place] [address] documented in this encounter Visit Diagnoses Not on filedocumented in this encounter Care Teams Software Tester Relationship Specialty Start Date End Date Natty Mckinney MD [address] [place] [address] PCP - General 09/29/15 documented as of this encounter
--- OUTSIDE RECORDS SUMMARY | 2024-07-25 01:04 | XMS_ITS | Encounter Summary ---
Author Organization [facility] Address [address] [place] [address] Care Team Providers Care Brokerage Coordinator Name Role Phone Unavailable Primary Care Provider Adi e Encounter Details Date Type Department Care Team (Late st Contact Info) Description 08/11/[address] [facility] [address] [place] [address] Yoel Marie, DO [address] [place] [address] Social History Tobacco Use Types [...] ? KRISHAN MONTE ? Accession #: ? [id number] ? : ? 1965 (Age: 38) ??M [...] specimen is entirely submitted as (B). ??(Devin King/[facility] End of Report [facility] 08/11/2003 08/12/2003 8:5 9 EDT Yoel Marie DO PATHOLOGY ORDER MICHAEL [facility] [address] [place] [address] documented in this encounter Visit Diagnoses Not on filedocumented in this encounter
--- OUTSIDE RECORDS SUMMARY | 2024-07-25 01:04 | XMS_ITS | Encounter Summary ---
Author Organization [facility] Address [address] [place] [address] Care Team Providers Care Business Process Engineer Name Role Phone Natty Mckinney MD Primary Care Provider [phone] Encounter Details Date Type Department Care Team (Late st Contact Info) Description 09/18/2022 Lab Requisition [facility] Pathology & Laboratory Medicine - [facility] [address] [place] [address] Outr Resulting Lab, Provider Social History Tobacco [...] 2.8 - 5.3 pg/mL 09/19/2022 18:12 EDT [facility] Blood VENOUS BLOOD / Unknown 09/18/2022 11:00 EDT 09/19/2022 17:25 EDT Provider Outr Resulting Lab CHEMISTRY & BLOOD GAS ORDERABLES Performing Organization Address [facility] Co de Phone Number [facility] [address] [place] [address] * PSA TOTAL, DIAGNOSTIC (09/18/2022 11:00 EDT) PSA 1.1 <=3.5 ng/mL 09/19/2022 19:58 EDT [facility] Blood VENOUS BLOOD / Unknown 09/18/2022 11:00 EDT 09/19/2022 17:25 EDT Narrative [facility] - 09/19/2022 19:58 EDT NOTE: Serum PSA concentration should not be interpreted as absolute evidence for the presence or absence of malignant disease. Assayed on [employer] XPT using chemiluminescent technology.??Values obtained by using different assay methods cannot be used interchangeably. Provider Outr Resulting Lab CHEMISTRY & BLOOD GAS ORDERABLES Performing Organization Address City/[facility]/ZIP Co de Phone Number [facility] [address] [place] [address] documented in this encounter Visit Diagnoses Not on filedocumented in this encounter Care Teams Business Process Engineer Relationship Specialty Start Date End Date Natty Mckinney MD [address] [place] [address] PCP - General 09/29/15 documented as of this encounter
--- OUTSIDE RECORDS SUMMARY | 2024-07-25 01:04 | XMS_ITS | Encounter Summary ---
Author Organization [facility] Address [address] [place] [address] Care Team Providers Care Goodwill Ambassador Name Role Phone Natty Mckinney MD Primary Care Provider [phone] Encounter Details Date Type Department Care Team (Late st Contact Info) Description 06/05/2023 Lab Requisition [facility] Pathology & Laboratory Medicine - [facility] [address] [place] [address] Outr Resulting Lab, Provider Social History Tobacco [...] 20 - 40 mg/dL 06/06/2023 10:[address] [facility] Blood VENOUS BLOOD / Unknown 06/04/2023 11:25 EDT 06/05/2023 17:41 EDT Provider Outr Resulting Lab CHEMISTRY & BLOOD GAS ORDERABLES [facility] [address] [place] [address] documented in this encounter Visit Diagnoses Not on filedocumented in this encounter Care Teams Goodwill Ambassador Relationship Specialty Start Date End Date Natty Mckinney MD [address] [place] [address] PCP - General 09/29/15 documented as of this encounter
--- OUTSIDE RECORDS SUMMARY | 2024-07-25 01:04 | XMS_ITS | Encounter Summary ---
Author Organization [facility] Address [address] [place] [address] Care Team Providers Care Porcelain Waxer Name Role Phone Unavailable Primary Care Provider Unavailabl e Encounter Details Date Type Department Care Team (Latest Contact Info) Description 04/20/2003 7:44 EDT - 04/20/2003 11:59 EDT Hospital Encounter [address] [address] Gold Chavez MD Discharge Disposition: Auto Discharge [...]
--- OUTSIDE RECORDS SUMMARY | 2024-07-25 01:04 | XMS_ITS | Encounter Summary ---
Author Organization [facility] Address [address] [place] [address] Care Team Providers Care Climatology Teacher Name Role Phone Natty Mckinney MD Primary Care Provider [phone] Encounter Details Date Type Department Care Team (Late st Contact Info) Description 08/27/2023 Lab Requisition [facility] Pathology & Laboratory Medicine - [facility] [address] [place] [address] Outr Resulting Lab, Provider Social History Tobacco [...] 20 - 40 mg/dL 08/28/2023 9:34 EDT [facility] Blood VENOUS BLOOD / Unknown 08/27/2023 13:00 EDT 08/27/2023 21:45 EDT Provider Outr Resulting Lab CHEMISTRY & BLOOD GAS ORDERABLES [facility] [address] [place] [address] documented in this encounter Visit Diagnoses Not on filedocumented in this encounter Care Teams Climatology Teacher Relationship Specialty Start Date End Date Natty Mckinney MD [address] [place] [address] PCP - General 09/29/15 documented as of this encounter
--- OUTSIDE RECORDS SUMMARY | 2024-07-25 01:04 | XMS_ITS | Encounter Summary ---
Author Organization [facility] Address [address] [place] [address] Care Team Providers Care Computer Drafter Name Role Phone Natty Mckinney MD Primary Care Provider [phone] Encounter Details Date Type Department Care Team (Late st Contact Info) Description 04/20/2023 Lab Requisition [facility] Pathology & Laboratory Medicine - [facility] [address] [place] [address] Outr Resulting Lab, Provider Social History Tobacco [...] 22 - 322 ng/mL 04/20/2023 19:34 EDT [facility] Blood VENOUS BLOOD / Unknown 04/17/2023 10:10 EDT 04/20/2023 17:31 EDT Provider Outr Resulting Lab CHEMISTRY & BLOOD GAS ORDERABLES Performing Organization Address [facility] Co de Phone Number [facility] [address] [place] [address] * FOLATE (04/17/2023 10:10 EDT) Folate 14.1 See Note ng/mL 04/20/2023 19:36 EDT [facility] Comment: Reference Ranges for Folate: Deficient: ?< 3.4 ng/mL Indeterminate: ??3.4 - 5.4 ng/mL Normal: ? > 5.4 ng/mL The results of this assay can be falsely elevated due to the consumption of Biotin. Blood VENOUS BLOOD / Unknown 04/17/2023 10:10 EDT 04/20/2023 17:31 EDT Provider Outr Resulting Lab CHEMISTRY & BLOOD GAS ORDERABLES Performing Organization Address [facility]/ZIP Co de Phone Number [facility] [address] [place] [address] * VITAMIN B12 (04/17/2023 10:10 EDT) Vitamin B12 881 211 - 911 pg/mL 04/20/2023 19:36 EDT [facility] Blood VENOUS BLOOD / Unknown 04/17/2023 10:10 EDT 04/20/2023 17:31 EDT Provider Outr Resulting Lab CHEMISTRY & BLOOD GAS ORDERABLES [facility] [address] [place] [address] documented in this encounter Visit Diagnoses Not on filedocumented in this encounter Care Teams Computer Drafter Relationship Specialty Start Date End Date Natty Mckinney MD [address] [place] [address] PCP - General 09/29/15 documented as of this encounter
--- OUTSIDE RECORDS SUMMARY | 2024-07-25 01:04 | XMS_ITS | Encounter Summary ---
Author Organization [facility] Address [address] [place] [address] Care Team Providers Care Hazmat Cdl Driver Name Role Phone Natty Mckinney MD Primary Care Provider [phone] Encounter Details Date Type Department Care Team (Late st Contact Info) Description 04/17/2023 Lab Requisition [facility] Pathology & Laboratory Medicine - [facility] [address] [place] [address] Outr Resulting Lab, Provider Social History Tobacco [...] 20 - 40 mg/dL 04/18/2023 10:20 EDT [facility] Blood VENOUS BLOOD / Unknown 04/17/2023 10:01 EDT 04/17/2023 21:57 EDT Provider Outr Resulting Lab CHEMISTRY & BLOOD GAS ORDERABLES [facility] [address] [place] [address] documented in this encounter Visit Diagnoses Not on filedocumented in this encounter Care Teams Hazmat Cdl Driver Relationship Specialty Start Date End Date Natty Mckinney MD [address] [place] [address] PCP - General 09/29/15 documented as of this encounter
--- OUTSIDE RECORDS SUMMARY | 2024-07-25 01:04 | XMS_ITS | Encounter Summary ---
Author Organization [facility] [place] [address] Care Team Providers Care Gang Pusher Name Role Phone Natty Mckinney MD Primary Care Provider [phone] Reason for Visit * Reason Onset Date Comments Pre Procedure Call 08/28/2019 Encounter Details Date Type Department Care Team (Late st Contact Info) Description 08/28/2019 Telephone Hematology [place] [phone] Nicole Eagle RN Pre Procedure Call Social [...] labs faxed to Urology office (fax # [phone]). Patient Hx: Leaky heart valve, artifical heart [...] need for biopsy. Registration is at Hem/Onc bridge opener on 3rd floor. Patient understands and is [...] (Ultrasensitiv e) 6.38(H) 0.00 - 4.00 ng/mL [facility] Prostate Specific Antigen, Free 0.6 ng/mL [facility] PSA % Free 10 % [facility] Comment: Probability of finding SHIPFITTERS SUPERVISOR on needle biopsy by age in years: [...] Lab Daniele Seals MD CHEMISTRY ORDERABL ES [facility] [place] [address] documented in this encounter Visit Diagnoses Diagnosis Elevated PSA Elevated prostate specific antigen (PSA) documented in this encounter Care Teams Gang Pusher Relationship Specialty Start Date End Date Natty Mckinney MD [address] [place] [address] PCP - General 10/11/10 documented as of this encounter
--- OUTSIDE RECORDS SUMMARY | 2024-07-25 01:04 | XMS_ITS | Encounter Summary ---
Author Organization [facility] Address [address] [place] [address] Care Team Providers Care Compliance Aide Name Role Phone Natty Mckinney MD Primary Care Provider Encounter Details Date Type Department Care Team (Late st Contact Info) Description 07/07/2024 Lab Requisition [facility] Pathology & Laboratory Medicine - [facility] [address] [place] [address] Outr Resulting Lab, Provider Social History Tobacco [...] Diagnosis Comments PREALBUMIN Routine 07/07/2024 14:00 EDT documented in this encounter Results * PREALBUMIN (07/07/2024 14:00 EDT) Prealbumin 23 20 - 40 mg/dL 07/08/2024 11:30 EDT [facility] Blood VENOUS BLOOD / Unknown 07/07/2024 14:00 EDT 07/07/2024 22:26 EDT Provider Outr Resulting Lab CHEMISTRY & BLOOD GAS ORDERABLES [facility] [address] [place], [place] [address] documented in this encounter Visit Diagnoses Not on filedocumented in this encounter Care Teams Compliance Aide Relationship Specialty Start Date End Date Natty Mckinney MD [address] [place] [address] PCP - General 09/29/15 documented as of this encounter
--- OUTSIDE RECORDS SUMMARY | 2024-07-25 01:04 | XMS_ITS | Encounter Summary ---
Author Organization [facility] Address [address] [place] [address] Care Team Providers Care Monument Installer Name Role Phone Unavailable Primary Care Provider Adi e Encounter Details Date Type Department Care Team (Late st Contact Info) Description 03/24/2003 9:32 EDT Hospital Encounter [address] [address] Gold Chavez MD Social History Tobacco Use [...]
--- OUTSIDE RECORDS SUMMARY | 2024-07-25 01:04 | XMS_ITS | Encounter Summary ---
Author Organization [facility] [place] [address] Care Team Providers Care Cable Reeler Name Role Phone Natty Mckinney MD Primary Care Provider Encounter Details Date Type Department Care Team (Late st Contact Info) Description 06/10/2009 [place] [id number] Sidra Omalley MD GASTROENTEROLOGY Social History Tobacco [...] 10:34 AM EDT) Surgical Pathology Report [id number] ? Location: 4T The signing pathologist has [...] on filedocumented in this encounter Care Teams Cable Reeler Relationship Specialty Start Date End Date Natty Mckinney MD [address] [place] [address] PCP - General 10/11/10 documented as of this encounter
[2024-07-25] MEDS: Normal Saline Flush 10 ML SYR IVP (13:43)
[2024-07-25 14:15] LABS: Abs Immature Grans 0.04 10^3/uL (0.0-0.06); Absolute Basophil Count 0.03 10^3/uL (0.0-0.2); Absolute Eosinophil Count 0.14 10^3/uL (0.0-0.7); Absolute Lymphocyte Count 2.64 10^3/uL (1.2-3.4); Absolute Monocyte Count 0.64 10^3/uL (0.1-0.8); Absolute Neutrophil Count 5.49 10^3/uL (1.2-6.7); Basophils % 0.3 %; Eosinophils % 1.6 %; HCT 36.8 % (40.0-50.0); Immature Grans % 0.4 %; Lymphocytes % 29.4 %; MCH 30.5 pg (27.0-33.0); MCHC 32.6 % (32.0-36.0); MCV 94 fL (80-95); MPV 11.8 fL (8.0-11.0); Monocytes % 7.1 %; Neutrophils % 61.2 %; Platelet Count 271 10^3/uL (130-400); RBC 3.93 10^6/uL (4.36-5.78); RDW 13.7 % (11.8-14.1); RDW-SD 47.1 fL; WBC 8.98 10^3/uL (4.4-10.8)
[2024-07-25 14:39] LABS: ALT 33 U/L (16-63); AST 25 U/L (15-37); Albumin 3.1 g/dL (3.4-5.0); Alkaline Phosphatase 167 U/L (46-116); Anion Gap 8.7 mmol/L (3-11); BUN 21 mg/dL (7-18); Bilirubin, Total 0.43 mg/dL (0.2-1.0); CO2 27.3 mmol/L (21.0-32.0); Calcium 8.5 mg/dL (8.5-10.1); Chloride 103 mmol/L (98-107); Estimated GFR 86.16 (mL/min/1.73m2); Glucose 112 mg/dL (74-106); Sodium 139 mmol/L (136-145); Total Protein 6.3 g/dL (6.4-8.2); Triglyceride 53 mg/dL (<150)
[2024-07-25 14:51] LABS: PHOSPHORUS 3.2 mg/dL (2.6-4.7)
[2024-08-01] MEDS: Normal Saline Flush 10 ML SYR IVP (13:13)
[2024-08-08 13:15] LABS: Abs Immature Grans 0.03 10^3/uL (0.0-0.06); Absolute Basophil Count 0.05 10^3/uL (0.0-0.2); Absolute Eosinophil Count 0.12 10^3/uL (0.0-0.7); Absolute Lymphocyte Count 2.51 10^3/uL (1.2-3.4); Absolute Monocyte Count 0.61 10^3/uL (0.1-0.8); Absolute Neutrophil Count 5.51 10^3/uL (1.2-6.7); Basophils % 0.6 %; Eosinophils % 1.4 %; HCT 35.4 % (40.0-50.0); HGB 11.7 g/dL (13.5-17.5); Immature Grans % 0.3 %; Lymphocytes % 28.4 %; MCH 30.4 pg (27.0-33.0); MCHC 33.1 % (32.0-36.0); MCV 92 fL (80-95); MPV 12.1 fL (8.0-11.0); Monocytes % 6.9 %; Neutrophils % 62.4 %; Platelet Count 213 10^3/uL (130-400); RBC 3.85 10^6/uL (4.36-5.78); RDW-SD 47.8 fL; WBC 8.83 10^3/uL (4.4-10.8)
[2024-08-08 13:43] LABS: ALT 37 U/L (16-63); AST 31 U/L (15-37); Albumin 3.1 g/dL (3.4-5.0); Alkaline Phosphatase 169 U/L (46-116); Anion Gap 7.6 mmol/L (3-11); BUN 20 mg/dL (7-18); Bilirubin, Total 0.45 mg/dL (0.2-1.0); CO2 26.4 mmol/L (21.0-32.0); CREATININE 0.9 mg/dL (0.70-1.30); Calcium 8.7 mg/dL (8.5-10.1); Chloride 104 mmol/L (98-107); Estimated GFR 97.78 (mL/min/1.73m2); Glucose 108 mg/dL (74-106); Magnesium 1.9 mg/dL (1.8-2.4); PHOSPHORUS 3.4 mg/dL (2.6-4.7); Potassium 4.1 mmol/L (3.5-5.1); Sodium 138 mmol/L (136-145); Total Protein 6.5 g/dL (6.4-8.2)
[2024-08-08] MEDS: Normal Saline Flush 10 ML SYR IVP (13:51)
[2024-08-08 13:55] LABS: Triglyceride 44 mg/dL (<150)
[2024-08-15] MEDS: Normal Saline Flush 10 ML SYR IVP (13:51)
== END 2024-08-18 23:59 | disposition home or self-care (01) ==
LOC: INF 01:34
PROVIDERS: PCP Family Medicine; Visit Provider Family Medicine
DX: K50.90 Crohn's disease, unspecified, without complications (principal)
CPT/HCPCS: 36592; 80053; 83735; 84100; 84478; 85025

== ENCOUNTER 2024-09-12 00:42 | Outpatient (RCR) | payer MEDICARE, SELFPAY ==
[2024-08-22] MEDS: Normal Saline Flush 10 ML SYR IVP (13:10)
[2024-08-22 13:27] LABS: Abs Immature Grans 0.02 10^3/uL (0.0-0.06); Absolute Basophil Count 0.04 10^3/uL (0.0-0.2); Absolute Eosinophil Count 0.11 10^3/uL (0.0-0.7); Absolute Lymphocyte Count 2.21 10^3/uL (1.2-3.4); Absolute Monocyte Count 0.64 10^3/uL (0.1-0.8); Absolute Neutrophil Count 5.21 10^3/uL (1.2-6.7); Basophils % 0.5 %; Eosinophils % 1.3 %; HCT 36.7 % (40.0-50.0); HGB 12.1 g/dL (13.5-17.5); Immature Grans % 0.2 %; Lymphocytes % 26.9 %; MCH 30.7 pg (27.0-33.0); MCV 93 fL (80-95); MPV 11.7 fL (8.0-11.0); Monocytes % 7.8 %; Neutrophils % 63.3 %; Platelet Count 213 10^3/uL (130-400); RBC 3.94 10^6/uL (4.36-5.78); RDW 14.2 % (11.8-14.1); RDW-SD 47.8 fL; WBC 8.23 10^3/uL (4.4-10.8)
[2024-08-22 13:46] LABS: ALT 49 U/L (16-63); AST 33 U/L (15-37); Albumin 3.2 g/dL (3.4-5.0); Alkaline Phosphatase 194 U/L (46-116); Anion Gap 8.3 mmol/L (3-11); BUN 28 mg/dL (7-18); Bilirubin, Total 0.48 mg/dL (0.2-1.0); C-Reactive Protein 0.63 mg/dL (<or=0.5); CO2 27.7 mmol/L (21.0-32.0); CREATININE 1.1 mg/dL (0.70-1.30); Chloride 104 mmol/L (98-107); Estimated GFR 76.85 (mL/min/1.73m2); Glucose 115 mg/dL (74-106); Magnesium 1.8 mg/dL (1.8-2.4); PHOSPHORUS 3.8 mg/dL (2.6-4.7); Potassium 4.3 mmol/L (3.5-5.1); Sodium 140 mmol/L (136-145); Total Protein 6.6 g/dL (6.4-8.2)
[2024-08-22 13:59] LABS: Triglyceride 42 mg/dL (<150)
[2024-08-25 09:37] LABS: Prealbumin 26 mg/dL (20-40)
[2024-08-29] MEDS: Normal Saline Flush 10 ML SYR IVP (13:15)
[2024-09-05] MEDS: Normal Saline Flush 10 ML SYR IVP (13:15)
[2024-09-12] MEDS: Normal Saline Flush 10 ML SYR IVP (13:17)
[2024-09-12 13:22] LABS: Abs Immature Grans 0.02 10^3/uL (0.0-0.06); Absolute Basophil Count 0.04 10^3/uL (0.0-0.2); Absolute Eosinophil Count 0.11 10^3/uL (0.0-0.7); Absolute Lymphocyte Count 2.19 10^3/uL (1.2-3.4); Absolute Monocyte Count 0.69 10^3/uL (0.1-0.8); Absolute Neutrophil Count 5.76 10^3/uL (1.2-6.7); Basophils % 0.5 %; Eosinophils % 1.2 %; HCT 36.1 % (40.0-50.0); HGB 12.2 g/dL (13.5-17.5); Immature Grans % 0.2 %; Lymphocytes % 24.9 %; MCHC 33.8 % (32.0-36.0); MCV 92 fL (80-95); MPV 11.9 fL (8.0-11.0); Monocytes % 7.8 %; Neutrophils % 65.4 %; Platelet Count 231 10^3/uL (130-400); RBC 3.93 10^6/uL (4.36-5.78); RDW 14.9 % (11.8-14.1); RDW-SD 50.3 fL; WBC 8.81 10^3/uL (4.4-10.8)
[2024-09-12 13:38] LABS: ALT 39 U/L (16-63); AST 28 U/L (15-37); Albumin 3.2 g/dL (3.4-5.0); Alkaline Phosphatase 178 U/L (46-116); Anion Gap 6.8 mmol/L (3-11); BUN 23 mg/dL (7-18); Bilirubin, Total 0.64 mg/dL (0.2-1.0); C-Reactive Protein 0.62 mg/dL (<or=0.5); CO2 28.2 mmol/L (21.0-32.0); Chloride 103 mmol/L (98-107); Estimated GFR 86.16 (mL/min/1.73m2); Glucose 130 mg/dL (74-106); Magnesium 1.9 mg/dL (1.8-2.4); PHOSPHORUS 3.3 mg/dL (2.6-4.7); Potassium 4.1 mmol/L (3.5-5.1); Sodium 138 mmol/L (136-145); Total Protein 6.8 g/dL (6.4-8.2)
[2024-09-12 13:53] LABS: Triglyceride 43 mg/dL (<150)
[2024-09-14 13:18] LABS: Prealbumin 27 mg/dL (20-40)
== END 2024-09-18 23:59 | disposition home or self-care (01) ==
LOC: INF 00:42
PROVIDERS: PCP Family Medicine; Visit Provider Family Medicine
DX: R78.81 Bacteremia; Z45.2 Encounter for adjustment and management of vascular access device; K91.2 Postsurgical malabsorption, not elsewhere classified; E46 Unspecified protein-calorie malnutrition
CPT/HCPCS: 36592; 80053; 96523; 83735; 84100; 84134; 84478; 85025; 86140

== ENCOUNTER 2024-10-15 01:50 | Outpatient (RCR) | payer MEDICARE, SELFPAY ==
[2024-09-19] MEDS: Normal Saline Flush 10 ML SYR IVP (13:23)
[2024-09-26] MEDS: Normal Saline Flush 10 ML SYR IVP (09:24)
[2024-09-26 09:28] LABS: Abs Immature Grans 0.03 10^3/uL (0.0-0.06); Absolute Basophil Count 0.05 10^3/uL (0.0-0.2); Absolute Lymphocyte Count 2.07 10^3/uL (1.2-3.4); Absolute Monocyte Count 0.57 10^3/uL (0.1-0.8); Absolute Neutrophil Count 6.55 10^3/uL (1.2-6.7); Basophils % 0.5 %; Eosinophils % 1.1 %; HCT 38.4 % (40.0-50.0); HGB 12.6 g/dL (13.5-17.5); Immature Grans % 0.3 %; Lymphocytes % 22.1 %; MCH 30.5 pg (27.0-33.0); MCHC 32.8 % (32.0-36.0); MCV 93 fL (80-95); MPV 11.8 fL (8.0-11.0); Monocytes % 6.1 %; Neutrophils % 69.9 %; Platelet Count 244 10^3/uL (130-400); RBC 4.13 10^6/uL (4.36-5.78); RDW 15.2 % (11.8-14.1); WBC 9.37 10^3/uL (4.4-10.8)
[2024-09-26 09:45] LABS: ALT 38 U/L (16-63); AST 26 U/L (15-37); Albumin 3.2 g/dL (3.4-5.0); Alkaline Phosphatase 168 U/L (46-116); Anion Gap 10.5 mmol/L (3-11); BUN 21 mg/dL (7-18); Bilirubin, Total 0.48 mg/dL (0.2-1.0); CO2 25.5 mmol/L (21.0-32.0); CREATININE 1.1 mg/dL (0.70-1.30); Chloride 104 mmol/L (98-107); Estimated GFR 76.85 (mL/min/1.73m2); Glucose 130 mg/dL (74-106); PHOSPHORUS 3.3 mg/dL (2.6-4.7); Potassium 4.3 mmol/L (3.5-5.1); Sodium 140 mmol/L (136-145)
[2024-09-26 09:59] LABS: Triglyceride 58 mg/dL (<150)
[2024-10-03] MEDS: Normal Saline Flush 10 ML SYR IVP (09:08)
[2024-10-08] MEDS: Normal Saline Flush 10 ML SYR IVP (12:20)
[2024-10-10 09:36] LABS: Abs Immature Grans 0.03 10^3/uL (0.0-0.06); Absolute Eosinophil Count 0.08 10^3/uL (0.0-0.7); Absolute Lymphocyte Count 1.94 10^3/uL (1.2-3.4); Basophils % 0.5 %; Eosinophils % 0.7 %; HCT 38.1 % (40.0-50.0); HGB 12.6 g/dL (13.5-17.5); Immature Grans % 0.3 %; Lymphocytes % 17.5 %; MCH 31.2 pg (27.0-33.0); MCHC 33.1 % (32.0-36.0); MCV 94 fL (80-95); MPV 11.8 fL (8.0-11.0); Monocytes % 5.9 %; Neutrophils % 75.1 %; Platelet Count 232 10^3/uL (130-400); RBC 4.04 10^6/uL (4.36-5.78); RDW 14.9 % (11.8-14.1); RDW-SD 52.3 fL; WBC 11.11 10^3/uL (4.4-10.8)
[2024-10-10 09:37] LABS: Absolute Basophil Count 0.06 10^3/uL (0.0-0.2); Absolute Monocyte Count 0.66 10^3/uL (0.1-0.8); Absolute Neutrophil Count 8.34 10^3/uL (1.2-6.7)
[2024-10-10 09:53] LABS: ALT 33 U/L (16-63); AST 25 U/L (15-37); Albumin 3.3 g/dL (3.4-5.0); Alkaline Phosphatase 166 U/L (46-116); Anion Gap 8.4 mmol/L (3-11); BUN 22 mg/dL (7-18); C-Reactive Protein < 0.50 mg/dL (<or=0.5); CO2 26.6 mmol/L (21.0-32.0); Calcium 8.9 mg/dL (8.5-10.1); Chloride 105 mmol/L (98-107); Estimated GFR 86.16 (mL/min/1.73m2); Glucose 124 mg/dL (74-106); PHOSPHORUS 3.2 mg/dL (2.6-4.7); Potassium 4.6 mmol/L (3.5-5.1); Sodium 140 mmol/L (136-145); Total Protein 6.9 g/dL (6.4-8.2)
[2024-10-10 10:10] LABS: Triglyceride 51 mg/dL (<150)
[2024-10-13 09:49] LABS: Prealbumin 26 mg/dL (20-40)
[2024-10-15] MEDS: Normal Saline Flush 10 ML SYR IVP (12:25)
== END 2024-10-18 23:59 | disposition home or self-care (01) ==
LOC: INF 01:50
PROVIDERS: PCP Family Medicine; Visit Provider Family Medicine
DX: R78.81 Bacteremia (principal); Z45.2 Encounter for adjustment and management of vascular access device
CPT/HCPCS: 36592; 80053; 96523; 83735; 84100; 84134; 84478; 85025; 86140

== ENCOUNTER 2024-11-18 02:00 | Outpatient (RCR) | payer MEDICARE, SELFPAY ==
[2024-10-22 10:38] LABS: Abs Immature Grans 0.04 10^3/uL (0.0-0.06); Absolute Basophil Count 0.05 10^3/uL (0.0-0.2); Absolute Monocyte Count 0.53 10^3/uL (0.1-0.8); Absolute Neutrophil Count 8.37 10^3/uL (1.2-6.7); Basophils % 0.4 %; Eosinophils % 0.4 %; HGB 12.5 g/dL (13.5-17.5); Immature Grans % 0.4 %; Lymphocytes % 19.9 %; MCHC 32.9 % (32.0-36.0); MCV 94 fL (80-95); MPV 11.8 fL (8.0-11.0); Monocytes % 4.7 %; Neutrophils % 74.2 %; Platelet Count 223 10^3/uL (130-400); RBC 4.03 10^6/uL (4.36-5.78); RDW 14.5 % (11.8-14.1); RDW-SD 50.4 fL; WBC 11.28 10^3/uL (4.4-10.8)
[2024-10-22 10:41] LABS: Absolute Eosinophil Count 0.05 10^3/uL (0.0-0.7); Absolute Lymphocyte Count 2.24 10^3/uL (1.2-3.4)
[2024-10-22 10:53] LABS: ALT 38 U/L (16-63); AST 27 U/L (15-37); Albumin 3.2 g/dL (3.4-5.0); Alkaline Phosphatase 169 U/L (46-116); Anion Gap 8.2 mmol/L (3-11); BUN 20 mg/dL (7-18); Bilirubin, Total 0.39 mg/dL (0.2-1.0); CO2 26.8 mmol/L (21.0-32.0); Calcium 8.8 mg/dL (8.5-10.1); Chloride 105 mmol/L (98-107); Estimated GFR 86.16 (mL/min/1.73m2); Glucose 121 mg/dL (74-106); PHOSPHORUS 3.5 mg/dL (2.6-4.7); Potassium 4.5 mmol/L (3.5-5.1); Sodium 140 mmol/L (136-145); Total Protein 6.8 g/dL (6.4-8.2); Triglyceride 53 mg/dL (<150)
[2024-10-29] MEDS: Normal Saline Flush 10 ML SYR IVP (09:08)
[2024-11-05 09:56] LABS: C-Reactive Protein < 0.50 mg/dL (<or=0.5)
[2024-11-05 19:47] LABS: PSA, Screening 1.2 ng/mL (<=4.5)
[2024-11-05 20:56] LABS: HIV-1/2 Ag & Ab Screen Negative (Negative)
[2024-11-05 23:01] LABS: Hepatitis C Ab w Rflx HCV PCR Negative (Negative)
[2024-11-06 09:05] LABS: Prealbumin 27 mg/dL (20-40)
[2024-11-11 09:31] LABS: Abs Immature Grans 0.02 10^3/uL (0.0-0.06); Absolute Basophil Count 0.05 10^3/uL (0.0-0.2); Absolute Eosinophil Count 0.04 10^3/uL (0.0-0.7); Absolute Lymphocyte Count 1.77 10^3/uL (1.2-3.4); Absolute Monocyte Count 0.63 10^3/uL (0.1-0.8); Absolute Neutrophil Count 7.45 10^3/uL (1.2-6.7); Basophils % 0.5 %; Eosinophils % 0.4 %; HCT 36.8 % (40.0-50.0); HGB 12.8 g/dL (13.5-17.5); Immature Grans % 0.2 %; Lymphocytes % 17.8 %; MCH 32.1 pg (27.0-33.0); MCHC 34.8 % (32.0-36.0); MCV 92 fL (80-95); MPV 12.2 fL (8.0-11.0); Monocytes % 6.3 %; Neutrophils % 74.8 %; Platelet Count 242 10^3/uL (130-400); RBC 3.99 10^6/uL (4.36-5.78); RDW 14.3 % (11.8-14.1); RDW-SD 48.6 fL; WBC 9.96 10^3/uL (4.4-10.8)
[2024-11-11] MEDS: Normal Saline Flush 10 ML SYR IVP (09:33)
[2024-11-11 09:53] LABS: ALT 40 U/L (16-63); AST 30 U/L (15-37); Albumin 3.3 g/dL (3.4-5.0); Alkaline Phosphatase 175 U/L (46-116); Anion Gap 7.6 mmol/L (3-11); BUN 21 mg/dL (7-18); Bilirubin, Total 0.44 mg/dL (0.2-1.0); CO2 26.4 mmol/L (21.0-32.0); Calcium 8.8 mg/dL (8.5-10.1); Chloride 105 mmol/L (98-107); Estimated GFR 86.16 (mL/min/1.73m2); Glucose 129 mg/dL (74-106); Magnesium 1.9 mg/dL (1.8-2.4); PHOSPHORUS 3.2 mg/dL (2.6-4.7); Potassium 4.3 mmol/L (3.5-5.1); Sodium 139 mmol/L (136-145); Total Protein 6.7 g/dL (6.4-8.2)
[2024-11-11 09:54] LABS: C-Reactive Protein < 0.50 mg/dL (<or=0.5)
[2024-11-11 10:05] LABS: Triglyceride 44 mg/dL (<150)
[2024-11-13 09:34] LABS: Prealbumin 27 mg/dL (20-40)
[2024-11-18] MEDS: Normal Saline Flush 10 ML SYR IVP (09:17)
== END 2024-11-18 23:59 | disposition home or self-care (01) ==
LOC: INF 02:00
PROVIDERS: PCP Family Medicine; Visit Provider Family Medicine
DX: E46 Unspecified protein-calorie malnutrition (principal); Z12.5 Encounter for screening for malignant neoplasm of prostate; K91.2 Postsurgical malabsorption, not elsewhere classified; Z45.2 Encounter for adjustment and management of vascular access device
CPT/HCPCS: 36592; 80053; 84153; 86803; 87389; 83735; 84100; 84134; 84478; 85025; 86140

== ENCOUNTER 2024-12-09 15:26 | Outpatient (CLI) | payer MEDICARE, SELFPAY ==
--- NOTE | 2024-12-09 09:45 | DI.RAD_ITS ---
Exam(s) XR SHOULDER RT COMPLETE 2+V EXAM: XR SHOULDER RT COMPLETE 2+V CLINICAL HISTORY: RIGHT SHOULDER PAIN. TECHNIQUE: 2D digital imaging was performed. COMPARISON: No exams were available for comparison FINDINGS: 3 views No evidence of fracture or dislocation no abnormal soft tissue calcifications. The subacromial space is not diminished. There are minimal if any significant degenerative changes in the glenohumeral an d AC joints. Coracoid process is intact. There are 2 small lucencies in the region the greater tuberosity in lateral aspect of the humeral hea d. One of these appears to be associated with some cortical thinning. I note that this patient has a Port-A-Cath. IMPRESSION: Two subtle lucencies in the lateral aspect of the humeral head, both measuring approximately 6 x 5 mm . These appears somewhat less physical than typical degenerative subarticular cysts and given the pr esence of a Port-A-Cath cannot exclude osseous metastatic disease. Recommend follow-up MRI or nuclea r bone scan. DATA REPOSITORY: RADIATION DOSE DELIVERED:
== END 2024-12-09 15:27 | disposition home or self-care (01) ==
LOC: DIORS 15:26
PROVIDERS: PCP Family Medicine; Referring Provider Family Medicine; Visit Provider Student in an Organized Health Care Education/Training Program
DX: M25.511 Pain in right shoulder (principal); M19.011 Primary osteoarthritis, right shoulder
CPT/HCPCS: 20610; 99213; J1010; 73030

== ENCOUNTER 2024-12-18 03:22 | Outpatient (RCR) | payer MEDICARE, SELFPAY ==
[2024-11-26] MEDS: Normal Saline Flush 10 ML SYR IVP (09:09)
[2024-12-04 09:20] LABS: Abs Immature Grans 0.05 10^3/uL (0.0-0.06); Absolute Basophil Count 0.05 10^3/uL (0.0-0.2); Absolute Eosinophil Count 0.09 10^3/uL (0.0-0.7); Absolute Lymphocyte Count 1.95 10^3/uL (1.2-3.4); Absolute Monocyte Count 0.65 10^3/uL (0.1-0.8); Basophils % 0.4 %; Eosinophils % 0.7 %; HCT 38.4 % (40.0-50.0); HGB 12.8 g/dL (13.5-17.5); Immature Grans % 0.4 %; MCH 31.1 pg (27.0-33.0); MCHC 33.3 % (32.0-36.0); MCV 93 fL (80-95); MPV 11.7 fL (8.0-11.0); Monocytes % 5.3 %; Neutrophils % 77.2 %; Platelet Count 213 10^3/uL (130-400); RBC 4.12 10^6/uL (4.36-5.78); RDW 14.4 % (11.8-14.1); RDW-SD 49.8 fL
[2024-12-04 09:22] LABS: Absolute Neutrophil Count 9.42 10^3/uL (1.2-6.7)
[2024-12-04 09:36] LABS: ALT 42 U/L (16-63); AST 32 U/L (15-37); Albumin 3.2 g/dL (3.4-5.0); Alkaline Phosphatase 176 U/L (46-116); Anion Gap 9.7 mmol/L (3-11); BUN 22 mg/dL (7-18); Bilirubin, Total 0.46 mg/dL (0.2-1.0); CO2 24.3 mmol/L (21.0-32.0); Calcium 8.7 mg/dL (8.5-10.1); Chloride 104 mmol/L (98-107); Estimated GFR 86.16 (mL/min/1.73m2); Glucose 127 mg/dL (74-106); Magnesium 1.9 mg/dL (1.8-2.4); PHOSPHORUS 3.4 mg/dL (2.6-4.7); Potassium 4.4 mmol/L (3.5-5.1); Sodium 138 mmol/L (136-145); Total Protein 6.7 g/dL (6.4-8.2)
[2024-12-04 09:37] LABS: C-Reactive Protein < 0.50 mg/dL (<or=0.5)
[2024-12-04 09:51] LABS: Triglyceride 52 mg/dL (<150)
[2024-12-04] MEDS: Normal Saline Flush 10 ML SYR IVP (11:05)
[2024-12-05 09:45] LABS: Prealbumin 28 mg/dL (20-40)
[2024-12-11] MEDS: Normal Saline Flush 10 ML SYR IVP (10:04)
== END 2024-12-19 23:59 | disposition home or self-care (01) ==
LOC: INF 03:22
PROVIDERS: PCP Family Medicine; Visit Provider Family Medicine
DX: E46 Unspecified protein-calorie malnutrition (principal); K91.2 Postsurgical malabsorption, not elsewhere classified
CPT/HCPCS: 36592; 80053; 83735; 84100; 84134; 84478; 85025; 86140

== ENCOUNTER 2025-01-08 15:33 | Outpatient (REF) | payer MEDICARE, SELFPAY ==
--- NOTE | 2025-01-08 14:30 | TONG_PTH ---
PATIENT: Krishan Monte LOC: [facility] U#:[id number] AGE/SX: 59/M ROOM: RE01/08/[address]: Allyson Quiñones : 1965 BED: DIS: 01/08/2025 SPEC #: [id number] RECD: 01/09/25 13:12 STATUS: ALEX REQ #: [id number] ALYSSA: 01/08/25 14:[address]: Allyson Quiñones DEPT: Surgical Specimen RECD BY: Edwige Lorenz ENTERED: 01/09/25 13:13 SP TYPE: CHATA BARRETT DR: Natty Mckinney V Tissues: 1 - TONGUE BIOPSY Procedures: SPECIAL STAIN 2 GROSS AND MICRO LEVEL 4 Comments: [id number]
== END 2025-01-08 15:34 | disposition home or self-care (01) ==
LOC: NCHCN 15:33
PROVIDERS: PCP Family Medicine; Visit Provider Registered Nurse Maternal Newborn
DX: B37.0 Candidal stomatitis (principal)
CPT/HCPCS: 88305; 88313

== ENCOUNTER 2025-01-15 02:37 | Outpatient (RCR) | payer MEDICARE, SELFPAY ==
[2024-12-25] MEDS: Normal Saline Flush 10 ML SYR IVP (10:16)
[2025-01-01] MEDS: Normal Saline Flush 10 ML SYR IVP (09:08)
[2025-01-01 09:13] LABS: Abs Immature Grans 0.03 10^3/uL (0.0-0.06); Absolute Basophil Count 0.04 10^3/uL (0.0-0.2); Absolute Eosinophil Count 0.13 10^3/uL (0.0-0.7); Absolute Lymphocyte Count 2.12 10^3/uL (1.2-3.4); Absolute Monocyte Count 0.56 10^3/uL (0.1-0.8); Absolute Neutrophil Count 7.64 10^3/uL (1.2-6.7); Basophils % 0.4 %; Eosinophils % 1.2 %; HCT 37.8 % (40.0-50.0); HGB 12.4 g/dL (13.5-17.5); Immature Grans % 0.3 %; Lymphocytes % 20.2 %; MCHC 32.8 % (32.0-36.0); MCV 95 fL (80-95); MPV 11.7 fL (8.0-11.0); Monocytes % 5.3 %; Neutrophils % 72.6 %; Platelet Count 210 10^3/uL (130-400); RDW-SD 52.4 fL; WBC 10.52 10^3/uL (4.4-10.8)
[2025-01-01 09:34] LABS: ALT 44 U/L (16-63); AST 22 U/L (15-37); Albumin 3.3 g/dL (3.4-5.0); Alkaline Phosphatase 176 U/L (46-116); Anion Gap 6.3 mmol/L (3-11); BUN 19 mg/dL (7-18); Bilirubin, Total 0.49 mg/dL (0.2-1.0); CO2 27.7 mmol/L (21.0-32.0); Calcium 9.1 mg/dL (8.5-10.1); Chloride 105 mmol/L (98-107); Estimated GFR 86.16 (mL/min/1.73m2); Glucose 124 mg/dL (74-106); Magnesium 1.8 mg/dL (1.8-2.4); PHOSPHORUS 3.3 mg/dL (2.6-4.7); Potassium 4.3 mmol/L (3.5-5.1); Sodium 139 mmol/L (136-145); Total Protein 6.7 g/dL (6.4-8.2)
[2025-01-01 09:37] LABS: C-Reactive Protein < 0.50 mg/dL (<or=0.5)
[2025-01-01 09:47] LABS: Triglyceride 50 mg/dL (<150)
[2025-01-02 09:20] LABS: Prealbumin 28 mg/dL (20-40)
[2025-01-08] MEDS: Normal Saline Flush 10 ML SYR IVP (09:48)
== END 2025-01-16 23:59 | disposition home or self-care (01) ==
LOC: INF 02:37
PROVIDERS: PCP Family Medicine; Visit Provider Family Medicine
DX: E46 Unspecified protein-calorie malnutrition (principal); K91.2 Postsurgical malabsorption, not elsewhere classified
CPT/HCPCS: 36591; 36592; 80053; 83735; 84100; 84134; 84478; 85025; 86140

== ENCOUNTER 2025-02-12 02:24 | Outpatient (RCR) | payer MEDICARE, SELFPAY ==
[2025-01-22] MEDS: Normal Saline Flush 10 ML SYR IVP (09:19)
[2025-01-29 09:28] LABS: Abs Immature Grans 0.04 10^3/uL (0.0-0.06); Absolute Basophil Count 0.06 10^3/uL (0.0-0.2); Absolute Eosinophil Count 0.16 10^3/uL (0.0-0.7); Absolute Lymphocyte Count 1.76 10^3/uL (1.2-3.4); Absolute Monocyte Count 0.67 10^3/uL (0.1-0.8); Absolute Neutrophil Count 7.65 10^3/uL (1.2-6.7); Basophils % 0.6 %; Eosinophils % 1.5 %; HGB 12.7 g/dL (13.5-17.5); Immature Grans % 0.4 %; MCH 30.8 pg (27.0-33.0); MCHC 32.6 % (32.0-36.0); MCV 95 fL (80-95); MPV 11.8 fL (8.0-11.0); Monocytes % 6.5 %; Platelet Count 219 10^3/uL (130-400); RBC 4.12 10^6/uL (4.36-5.78); RDW 14.8 % (11.8-14.1); RDW-SD 52.1 fL; WBC 10.34 10^3/uL (4.4-10.8)
[2025-01-29 09:46] LABS: ALT 39 U/L (16-63); AST 27 U/L (15-37); Albumin 3.4 g/dL (3.4-5.0); Alkaline Phosphatase 184 U/L (46-116); Anion Gap 9.5 mmol/L (3-11); BUN 19 mg/dL (7-18); Bilirubin, Total 0.4 mg/dL (0.2-1.0); CO2 26.5 mmol/L (21.0-32.0); Calcium 9.1 mg/dL (8.5-10.1); Chloride 104 mmol/L (98-107); Estimated GFR 86.16 (mL/min/1.73m2); Glucose 125 mg/dL (74-106); PHOSPHORUS 3.3 mg/dL (2.6-4.7); Potassium 4.5 mmol/L (3.5-5.1); Sodium 140 mmol/L (136-145); Total Protein 6.8 g/dL (6.4-8.2); Triglyceride 59 mg/dL (<150)
[2025-01-29 09:55] LABS: C-Reactive Protein < 0.50 mg/dL (<or=0.5)
[2025-01-29] MEDS: Normal Saline Flush 10 ML SYR IVP (10:27)
[2025-01-30 10:11] LABS: Prealbumin 31 mg/dL (20-40)
[2025-02-05 10:33] LABS: ESR 17 mm/hr (0-20)
[2025-02-12] MEDS: Normal Saline Flush 10 ML SYR IVP (09:16)
== END 2025-02-16 23:59 | disposition home or self-care (01) ==
LOC: INF 02:24
PROVIDERS: PCP Family Medicine; Visit Provider Family Medicine
DX: K91.2 Postsurgical malabsorption, not elsewhere classified (principal); R51.9 Headache, unspecified; R78.81 Bacteremia
CPT/HCPCS: 36592; 80053; 85652; J1010; 83735; 84100; 84134; 84478; 85025; 86140

== ENCOUNTER 2025-02-12 09:38 | Outpatient (CLI) | payer MEDICARE, SELFPAY | END 2025-02-12 09:39 | disposition home or self-care (01) | LOC: ORDER INT 09:39 | PROVIDERS: PCP Family Medicine; Visit Provider Student in an Organized Health Care Education/Training Program | DX: M16.12 Unilateral primary osteoarthritis, left hip (principal) | CPT/HCPCS: 20611; J1010 ==

== ENCOUNTER 2025-03-12 01:55 | Outpatient (RCR) | payer MEDICARE, SELFPAY ==
[2025-02-19] MEDS: Normal Saline Flush 10 ML SYR IVP (09:16)
[2025-02-26 09:31] LABS: Abs Immature Grans 0.03 10^3/uL (0.0-0.06); Absolute Basophil Count 0.06 10^3/uL (0.0-0.2); Absolute Eosinophil Count 0.14 10^3/uL (0.0-0.7); Absolute Lymphocyte Count 1.84 10^3/uL (1.2-3.4); Absolute Monocyte Count 0.65 10^3/uL (0.1-0.8); Absolute Neutrophil Count 7.38 10^3/uL (1.2-6.7); Basophils % 0.6 %; Eosinophils % 1.4 %; HCT 38.9 % (40.0-50.0); HGB 12.6 g/dL (13.5-17.5); Immature Grans % 0.3 %; Lymphocytes % 18.2 %; MCH 30.9 pg (27.0-33.0); MCHC 32.4 % (32.0-36.0); MCV 95 fL (80-95); MPV 11.8 fL (8.0-11.0); Monocytes % 6.4 %; Neutrophils % 73.1 %; Platelet Count 193 10^3/uL (130-400); RBC 4.08 10^6/uL (4.36-5.78); RDW 14.4 % (11.8-14.1); RDW-SD 50.3 fL
[2025-02-26 09:53] LABS: ALT 51 U/L (16-63); AST 26 U/L (15-37); Albumin 3.3 g/dL (3.4-5.0); Alkaline Phosphatase 183 U/L (46-116); Anion Gap 5.7 mmol/L (3-11); BUN 20 mg/dL (7-18); Bilirubin, Total 0.5 mg/dL (0.2-1.0); CO2 28.3 mmol/L (21.0-32.0); Calcium 8.8 mg/dL (8.5-10.1); Chloride 104 mmol/L (98-107); Estimated GFR 86.16 (mL/min/1.73m2); Glucose 139 mg/dL (74-106); Magnesium 1.9 mg/dL; PHOSPHORUS 3.3 mg/dL (2.6-4.7); Potassium 4.3 mmol/L (3.5-5.1); Sodium 138 mmol/L (136-145); Total Protein 6.6 g/dL (6.4-8.2)
[2025-02-26 09:55] LABS: C-Reactive Protein < 0.50 mg/dL (<or=0.5)
[2025-02-26 10:05] LABS: Triglyceride 49 mg/dL (<150)
[2025-02-27 11:05] LABS: Prealbumin 31 mg/dL (20-40)
[2025-03-05] MEDS: Normal Saline Flush 10 ML SYR IVP (09:20)
== END 2025-03-18 23:59 | disposition home or self-care (01) ==
LOC: INF 01:55
PROVIDERS: PCP Family Medicine; Visit Provider Family Medicine
DX: E46 Unspecified protein-calorie malnutrition (principal); K91.2 Postsurgical malabsorption, not elsewhere classified
CPT/HCPCS: 36592; 80053; 83735; 84100; 84134; 84478; 85025; 86140

== ENCOUNTER 2025-04-16 02:56 | Outpatient (RCR) | payer MEDICARE, SELFPAY ==
[2025-03-19] MEDS: Normal Saline Flush 10 ML SYR IVP (09:13)
[2025-03-26] MEDS: Normal Saline Flush 10 ML SYR IVP (09:36)
[2025-03-26 10:02] LABS: Abs Immature Grans 0.02 10^3/uL (0.0-0.06); Absolute Basophil Count 0.05 10^3/uL (0.0-0.2); Absolute Eosinophil Count 0.11 10^3/uL (0.0-0.7); Absolute Lymphocyte Count 1.94 10^3/uL (1.2-3.4); Absolute Monocyte Count 0.53 10^3/uL (0.1-0.8); Absolute Neutrophil Count 5.55 10^3/uL (1.2-6.7); Basophils % 0.6 %; Eosinophils % 1.3 %; HCT 38.5 % (40.0-50.0); HGB 12.8 g/dL (13.5-17.5); Immature Grans % 0.2 %; Lymphocytes % 23.7 %; MCH 31.4 pg (27.0-33.0); MCHC 33.2 % (32.0-36.0); MCV 95 fL (80-95); Monocytes % 6.5 %; Neutrophils % 67.7 %; Platelet Count 208 10^3/uL (130-400); RBC 4.07 10^6/uL (4.36-5.78); RDW 13.9 % (11.8-14.1); RDW-SD 48.2 fL
[2025-03-26 10:12] LABS: Lipase 12 U/L (<78)
[2025-03-26 10:17] LABS: ALT 43 U/L (16-63); AST 26 U/L (15-37); Albumin 3.3 g/dL (3.4-5.0); Alkaline Phosphatase 189 U/L (46-116); Anion Gap 7.2 mmol/L (3-11); BUN 22 mg/dL (7-18); Bilirubin, Total 0.5 mg/dL (0.2-1.0); CO2 27.8 mmol/L (21.0-32.0); Chloride 103 mmol/L (98-107); Estimated GFR 86.16 (mL/min/1.73m2); Glucose 145 mg/dL (74-106); Magnesium 1.9 mg/dL (1.8-2.4); PHOSPHORUS 3.1 mg/dL (2.6-4.7); Potassium 4.2 mmol/L (3.5-5.1); Sodium 138 mmol/L (136-145); Total Protein 6.8 g/dL (6.4-8.2)
[2025-03-26 10:24] LABS: C-Reactive Protein < 0.50 mg/dL (<or=0.5)
[2025-03-26 10:35] LABS: Triglyceride 47 mg/dL (<150)
[2025-03-27 11:42] LABS: Prealbumin 30 mg/dL (20-40)
[2025-04-02] MEDS: Normal Saline Flush 10 ML SYR IVP (09:09)
[2025-04-05 10:33] LABS: Testosterone, Free 10.3 ng/dL (3.67-13.9); Testosterone, Total 620 ng/dL (240-950)
[2025-04-09] MEDS: Normal Saline Flush 10 ML SYR IVP (11:14)
== END 2025-04-18 23:59 | disposition home or self-care (01) ==
LOC: INF 02:56
PROVIDERS: PCP Family Medicine; Visit Provider Family Medicine
DX: K91.2 Postsurgical malabsorption, not elsewhere classified (principal); E46 Unspecified protein-calorie malnutrition
CPT/HCPCS: 36592; 80053; 83690; 84402; 84403; 83735; 84100; 84134; 84478; 85025; 86140

== ENCOUNTER 2025-05-14 00:57 | Outpatient (RCR) | payer MEDICARE, SELFPAY ==
[2025-04-23] MEDS: Normal Saline Flush 10 ML SYR IVP (11:12)
[2025-04-23 11:46] LABS: ALT 48 U/L (16-63); AST 32 U/L (15-37); Albumin 3.4 g/dL (3.4-5.0); Alkaline Phosphatase 183 U/L (46-116); Anion Gap 5.8 mmol/L (3-11); BUN 21 mg/dL (7-18); Bilirubin, Total 0.6 mg/dL (0.2-1.0); CO2 27.2 mmol/L (21.0-32.0); Calcium 8.7 mg/dL (8.5-10.1); Chloride 102 mmol/L (98-107); Estimated GFR 86.16 (mL/min/1.73m2); Glucose 144 mg/dL (74-106); Potassium 4.3 mmol/L (3.5-5.1); Sodium 135 mmol/L (136-145); Total Protein 6.7 g/dL (6.4-8.2); Triglyceride 40 mg/dL (<150)
[2025-04-23 11:55] LABS: Abs Immature Grans 0.04 10^3/uL (0.0-0.06); Absolute Basophil Count 0.06 10^3/uL (0.0-0.2); Absolute Eosinophil Count 0.08 10^3/uL (0.0-0.7); Basophils % 0.5 %; Eosinophils % 0.6 %; HGB 13.6 g/dL (13.5-17.5); Immature Grans % 0.3 %; Lymphocytes % 18.8 %; MCH 34.2 pg (27.0-33.0); MCHC 36.8 % (32.0-36.0); MCV 93 fL (80-95); MPV 12.2 fL (8.0-11.0); Monocytes % 5.9 %; Neutrophils % 73.9 %; Platelet Count 268 10^3/uL (130-400); RBC 3.98 10^6/uL (4.36-5.78); RDW-SD 47.8 fL; WBC 12.95 10^3/uL (4.4-10.8)
[2025-04-23 11:56] LABS: Absolute Lymphocyte Count 2.43 10^3/uL (1.2-3.4); Absolute Monocyte Count 0.76 10^3/uL (0.1-0.8); Absolute Neutrophil Count 9.57 10^3/uL (1.2-6.7); C-Reactive Protein < 0.50 mg/dL (<or=0.5); PHOSPHORUS 3.2 mg/dL (2.6-4.7)
[2025-04-24 09:21] LABS: Prealbumin 30 mg/dL (20-40)
[2025-04-30] MEDS: Normal Saline Flush 10 ML SYR IVP (12:45)
[2025-05-07] MEDS: Normal Saline Flush 10 ML SYR IVP (11:44)
[2025-05-14] MEDS: Normal Saline Flush 10 ML SYR IVP (11:13)
== END 2025-05-18 23:59 | disposition home or self-care (01) ==
LOC: INF 00:57
PROVIDERS: PCP Family Medicine; Visit Provider Family Medicine
DX: E46 Unspecified protein-calorie malnutrition (principal)
CPT/HCPCS: 36592; 80053; 83735; 84100; 84134; 84478; 85025; 86140

== ENCOUNTER 2025-06-18 11:30 | Outpatient (RCR) | payer MEDICARE, SELFPAY ==
[2025-05-21 11:27] LABS: Abs Immature Grans 0.03 10^3/uL (0.0-0.06); HCT 38.0 % (40.0-50.0); HGB 12.7 g/dL (13.5-17.5); Immature Grans % 0.4 %; MCH 31.1 pg (27.0-33.0); MCHC 33.4 % (32.0-36.0); MCV 93 fL (80-95); MPV 11.9 fL (8.0-11.0); Platelet Count 195 10^3/uL (130-400); RBC 4.08 10^6/uL (4.36-5.78); RDW 13.8 % (11.8-14.1); RDW-SD 47.2 fL; WBC 7.73 10^3/uL (4.4-10.8)
[2025-05-21 11:51] LABS: ALT 51 U/L (16-63); AST 29 U/L (15-37); Albumin 3.5 g/dL (3.4-5.0); Alkaline Phosphatase 189 U/L (46-116); Anion Gap 7.9 mmol/L (3-11); BUN 20 mg/dL (7-18); Bilirubin, Total 0.6 mg/dL (0.2-1.0); CO2 28.1 mmol/L (21.0-32.0); Calcium 9.0 mg/dL (8.5-10.1); Chloride 103 mmol/L (98-107); Estimated GFR 100.69 (mL/min/1.73m2); Glucose 108 mg/dL (74-106); Magnesium 2.1 mg/dL (1.8-2.4); Potassium 4.5 mmol/L (3.5-5.1); Sodium 139 mmol/L (136-145); Total Protein 6.9 g/dL (6.4-8.2)
[2025-05-21 11:57] LABS: C-Reactive Protein < 0.50 mg/dL (<or=0.5)
[2025-05-21 13:01] LABS: Triglyceride 44 mg/dL (<150)
[2025-05-22 09:20] LABS: Prealbumin 30 mg/dL (20-40)
[2025-05-28] MEDS: Normal Saline Flush 10 ML SYR IVP (11:05)
[2025-06-04] MEDS: Normal Saline Flush 10 ML SYR IVP (11:17)
[2025-06-11 11:26] VITALS: BP 124/78; PULSE 75; RESP 18; TEMP 36.4; O2SAT 97
[2025-06-11] MEDS: Normal Saline Flush 10 ML SYR IVP (11:31)
[2025-06-11 11:36] LABS: Abs Immature Grans 0.02 10^3/uL (0.0-0.06); HCT 36.9 % (40.0-50.0); HGB 12.6 g/dL (13.5-17.5); Immature Grans % 0.2 %; MCH 31.9 pg (27.0-33.0); MCHC 34.1 % (32.0-36.0); MCV 93 fL (80-95); MPV 12.0 fL (8.0-11.0); Platelet Count 222 10^3/uL (130-400); RBC 3.95 10^6/uL (4.36-5.78); RDW 14.0 % (11.8-14.1); RDW-SD 47.9 fL; WBC 9.83 10^3/uL (4.4-10.8)
[2025-06-11 11:50] LABS: Anion Gap 5.5 mmol/L (3-11); BUN 21 mg/dL (7-18); C-Reactive Protein 0.61 mg/dL (<or=0.5); CO2 30.5 mmol/L (21.0-32.0); Calcium 8.8 mg/dL (8.5-10.1); Chloride 101 mmol/L (98-107); Estimated GFR 97.17 (mL/min/1.73m2); Glucose 146 mg/dL (74-106); Potassium 3.9 mmol/L (3.5-5.1); Sodium 137 mmol/L (136-145)
[2025-06-18 11:23] LABS: Abs Immature Grans 0.02 10^3/uL (0.0-0.06); HCT 36.3 % (40.0-50.0); HGB 12.4 g/dL (13.5-17.5); Immature Grans % 0.2 %; MCH 31.8 pg (27.0-33.0); MCHC 34.2 % (32.0-36.0); MCV 93 fL (80-95); MPV 12.0 fL (8.0-11.0); Platelet Count 202 10^3/uL (130-400); RBC 3.90 10^6/uL (4.36-5.78); RDW 14.0 % (11.8-14.1); RDW-SD 47.6 fL; WBC 8.68 10^3/uL (4.4-10.8)
[2025-06-18 11:38] LABS: Magnesium 2.1 mg/dL (1.8-2.4)
[2025-06-18 11:39] LABS: C-Reactive Protein < 0.50 mg/dL (<or=0.5)
[2025-06-18 11:50] LABS: Triglyceride 44 mg/dL (<150)
[2025-06-18] MEDS: Normal Saline Flush 10 ML SYR IVP (12:52)
[2025-06-18 16:23] LABS: ALT 48 U/L (16-63); AST 33 U/L (15-37); Albumin 3.3 g/dL (3.4-5.0); Alkaline Phosphatase 178 U/L (46-116); Anion Gap 7.4 mmol/L (3-11); BUN 21 mg/dL (7-18); Bilirubin, Total 0.6 mg/dL (0.2-1.0); CO2 27.6 mmol/L (21.0-32.0); Calcium 9.0 mg/dL (8.5-10.1); Chloride 103 mmol/L (98-107); Estimated GFR 97.17 (mL/min/1.73m2); Glucose 131 mg/dL (74-106); Potassium 4.1 mmol/L (3.5-5.1); Sodium 138 mmol/L (136-145); Total Protein 6.6 g/dL (6.4-8.2)
[2025-06-19 09:27] LABS: Prealbumin 26 mg/dL (20-40)
== END 2025-06-18 23:59 | disposition home or self-care (01) ==
LOC: INF 11:30
PROVIDERS: PCP Family Medicine; Visit Provider Family Medicine
DX: E46 Unspecified protein-calorie malnutrition (principal); R53.83 Other fatigue
CPT/HCPCS: 36592; 80048; 80053; 83735; 84100; 84134; 84478; 85025; 86140

== ENCOUNTER 2025-07-16 03:49 | Outpatient (RCR) | payer MEDICARE, SELFPAY ==
[2025-06-25] MEDS: Normal Saline Flush 10 ML SYR IVP (13:54)
[2025-07-02] MEDS: Normal Saline Flush 10 ML SYR IVP (10:46)
[2025-07-09] MEDS: Normal Saline Flush 10 ML SYR IVP (11:48)
[2025-07-16] MEDS: Normal Saline Flush 10 ML SYR IVP (11:08)
[2025-07-16 11:17] LABS: Abs Immature Grans 0.03 10^3/uL (0.0-0.06); HCT 38.7 % (40.0-50.0); HGB 12.9 g/dL (13.5-17.5); Immature Grans % 0.2 %; MCH 31.2 pg (27.0-33.0); MCHC 33.3 % (32.0-36.0); MCV 94 fL (80-95); MPV 12.3 fL (8.0-11.0); Platelet Count 224 10^3/uL (130-400); RBC 4.14 10^6/uL (4.36-5.78); RDW 14.4 % (11.8-14.1); RDW-SD 49.4 fL; WBC 13.94 10^3/uL (4.4-10.8)
[2025-07-16 11:57] LABS: ALT 52 U/L (16-63); AST 39 U/L (15-37); Albumin 3.6 g/dL (3.4-5.0); Alkaline Phosphatase 190 U/L (46-116); Anion Gap 9.7 mmol/L (3-11); BUN 17 mg/dL (7-18); Bilirubin, Total 1.1 mg/dL (0.2-1.0); CO2 26.3 mmol/L (21.0-32.0); Calcium 9.1 mg/dL (8.5-10.1); Chloride 101 mmol/L (98-107); Estimated GFR 85.63 (mL/min/1.73m2); Glucose 109 mg/dL (74-106); Magnesium 1.9 mg/dL (1.8-2.4); Potassium 4.0 mmol/L (3.5-5.1); Sodium 137 mmol/L (136-145); Total Protein 6.9 g/dL (6.4-8.2); Triglyceride 61 mg/dL (<150)
[2025-07-16 12:11] LABS: C-Reactive Protein < 0.50 mg/dL (<or=0.5)
[2025-07-17 10:15] LABS: Prealbumin 26 mg/dL (20-40)
== END 2025-07-19 23:59 | disposition home or self-care (01) ==
LOC: INF 03:49
PROVIDERS: PCP Family Medicine; Visit Provider Family Medicine
DX: E46 Unspecified protein-calorie malnutrition (principal)
CPT/HCPCS: 36592; 80053; 83735; 84100; 84134; 84478; 85025; 86140

== ENCOUNTER 2025-08-13 00:42 | Outpatient (RCR) | payer MEDICARE, SELFPAY ==
[2025-07-23] MEDS: Normal Saline Flush 10 ML SYR IVP (11:01)
[2025-07-30] MEDS: Normal Saline Flush 10 ML SYR IVP (11:03)
[2025-08-06] MEDS: Normal Saline Flush 10 ML SYR IVP (11:14)
[2025-08-13 11:11] LABS: Abs Immature Grans 0.02 10^3/uL (0.0-0.06); HCT 37.3 % (40.0-50.0); HGB 12.5 g/dL (13.5-17.5); Immature Grans % 0.2 %; MCH 31.3 pg (27.0-33.0); MCHC 33.5 % (32.0-36.0); MCV 93 fL (80-95); MPV 12.0 fL (8.0-11.0); Platelet Count 203 10^3/uL (130-400); RBC 4.00 10^6/uL (4.36-5.78); RDW 14.3 % (11.8-14.1); RDW-SD 49.1 fL; WBC 8.35 10^3/uL (4.4-10.8)
[2025-08-13 11:27] LABS: ALT 45 U/L (16-63); AST 30 U/L (15-37); Albumin 3.2 g/dL (3.4-5.0); Alkaline Phosphatase 178 U/L (46-116); Anion Gap 5.8 mmol/L (3-11); BUN 21 mg/dL (7-18); Bilirubin, Total 0.5 mg/dL (0.2-1.0); CO2 28.2 mmol/L (21.0-32.0); Calcium 8.5 mg/dL (8.5-10.1); Chloride 104 mmol/L (98-107); Glucose 118 mg/dL (74-106); Magnesium 2.0 mg/dL (1.8-2.4); Potassium 4.2 mmol/L (3.5-5.1); Sodium 138 mmol/L (136-145); Total Protein 6.6 g/dL (6.4-8.2)
[2025-08-13 11:31] LABS: C-Reactive Protein < 0.50 mg/dL (<or=0.5)
[2025-08-14 09:27] LABS: Prealbumin 28 mg/dL (20-40)
== END 2025-08-18 23:59 | disposition home or self-care (01) ==
LOC: INF 00:42
PROVIDERS: PCP Family Medicine; Visit Provider Family Medicine
DX: E46 Unspecified protein-calorie malnutrition (principal); Z45.2 Encounter for adjustment and management of vascular access device
CPT/HCPCS: 36592; 80053; 96365; 96366; 83735; 84100; 84134; 84478; 85025; 86140

== ENCOUNTER 2025-09-17 00:01 | Outpatient (RCR) | payer MEDICARE, SELFPAY ==
[2025-08-27] MEDS: Normal Saline Flush 10 ML SYR IVP (11:51)
[2025-09-10 11:11] LABS: Abs Immature Grans 0.02 10^3/uL (0.0-0.06); HCT 38.7 % (40.0-50.0); HGB 12.8 g/dL (13.5-17.5); Immature Grans % 0.2 %; MCH 30.8 pg (27.0-33.0); MCHC 33.1 % (32.0-36.0); MCV 93 fL (80-95); MPV 12.1 fL (8.0-11.0); Platelet Count 202 10^3/uL (130-400); RBC 4.15 10^6/uL (4.36-5.78); RDW 14.5 % (11.8-14.1); RDW-SD 50.0 fL; WBC 9.91 10^3/uL (4.4-10.8)
[2025-09-10 11:33] LABS: ALT 44 U/L (16-63); AST 29 U/L (15-37); Albumin 3.3 g/dL (3.4-5.0); Alkaline Phosphatase 175 U/L (46-116); Anion Gap 7.6 mmol/L (3-11); BUN 22 mg/dL (7-18); Bilirubin, Total 0.6 mg/dL (0.2-1.0); CO2 28.4 mmol/L (21.0-32.0); Calcium 8.9 mg/dL (8.5-10.1); Chloride 103 mmol/L (98-107); Estimated GFR 97.17 (mL/min/1.73m2); Glucose 110 mg/dL (74-106); Magnesium 2.2 mg/dL (1.8-2.4); Potassium 4.3 mmol/L (3.5-5.1); Sodium 139 mmol/L (136-145); Total Protein 6.7 g/dL (6.4-8.2)
[2025-09-10 11:34] LABS: C-Reactive Protein < 0.50 mg/dL (<or=0.5)
[2025-09-10 11:44] LABS: Triglyceride 47 mg/dL (<150)
[2025-09-10] MEDS: Normal Saline Flush 10 ML SYR IVP (11:56)
[2025-09-11 09:54] LABS: Prealbumin 28 mg/dL (20-40)
[2025-09-17] MEDS: Normal Saline Flush 10 ML SYR IVP (11:07)
== END 2025-09-18 23:59 | disposition home or self-care (01) ==
LOC: INF 00:01
PROVIDERS: PCP Family Medicine; Visit Provider Family Medicine
DX: E46 Unspecified protein-calorie malnutrition (principal); K91.2 Postsurgical malabsorption, not elsewhere classified
CPT/HCPCS: 36592; 80053; 83735; 84100; 84134; 84478; 85025; 86140

== ENCOUNTER 2025-10-16 15:46 | Emergency (ER) | payer MEDICARE, SELFPAY ==
[2025-10-16 15:47] VITALS: BP 134/82; PULSE 90; RESP 16; TEMP 36.9; O2SAT 98
--- NOTE | 2025-10-16 16:00 | DI.CT_ITS ---
Exam(s) CT ABDOMEN PELVIS W EXAM: CT ABDOMEN PELVIS W CLINICAL HISTORY: crohs, ileostomy, no stool/gas today, nausea/vomit TECHNIQUE: Imaging Protocol: Axial computed tomography images with coronal and sagittal reformatted images were created and reviewed. CONTRAST MATERIAL: Intravenous: Omnipaque 350 Contrast volume:75 mL Oral: No COMPARISON: CT CT ABDOMEN PELVIS W from 09/22/[address] ABDOMEN PELVIS W from 04/16/[address] CHEST/ABD/PEL W from 04/24/[address] CHEST PE CTA from 04/27/2024 FINDINGS: ABDOMEN: Lung Bases: No acute abnormality. Liver: Normal density. No measurable mass. Portal, Superior Mesenteric, and Splenic Veins: Unremarkable. Gallbladder and Biliary Tract: No radiodense calculus or dilation. Pancreas: Normal density, no abnormal calcifications or inflammatory process. Spleen: Normal. Adrenals: No masses seen. Kidneys: Normal size, contour and axis. No radiodense stones or obstructive uropathy. No masses seen. Abdominal Aorta: Abdominal portion non-dilated. Atherosclerotic calcification is present. Bowel: There has been a prior colectomy. There are fluid-filled loops of small bowel present. This may represent an ileus. A mild enteritis cannot be excluded. No definite evidence to suggest bowel obstruction are seen at this time. The ileostomy is seen in the right lower quadrant. Peritoneal Cavity: No ascites, collection or mesenteric inflammatory response. No free air. Lymph Nodes: Within normal limits. Bones: Within normal limits for the patient's age. There is again seen ankylosis of the sacroiliac joints which can be seen with inflammatory bowel diseases. There is a stable sclerotic focus in the left iliac bone. Soft Tissues: Unremarkable. PELVIS: Bladder: The urinary bladder is incompletely distended limiting evaluation. There is mild thickening of the wall which likely is due to underdistention. Cystitis cannot be excluded. Reproductive Organs: Prostatic seeds are again seen in the region of the prostate gland. Lymph Nodes: Within normal limits. Bones: Within normal limits for the patient's age. IMPRESSION: 1. Fluid-filled loops of small bowel are seen without definite obstruction. The findings may represent an ileus or possible enteritis. Please correlate clinically. 2. Mild urinary bladder wall thickening which may be due to underdistention. Cystitis cannot be entirely excluded. Please correlate clinically. 3. Status post colectomy. RADIATION DOSE DELIVERED: 401.37mGy.cm Total DLP DATA REPOSITORY: All CT scans at this facility are submitted to the National Radiology Data Registry (NRDR) Dose Index Registry (DIR) with the [employer] (ACR). RADIATION OPTIMIZATION: All CT scans at this facility use at least one of these dose optimization techniques: automated exposure control; mA and/or kV adjustment per patient size (includes targeted exams where dose is matched to clinical indication); or iterative reconstruction.
--- NOTE | 2025-10-16 16:00 | RT.EKG_ITS ---
APPROVED REPORT Exam: Resting ECG Reason for Exam: epigastric pain Patient Location: E HR:74 bpm ECG Measurements Heart Rate 74 AXIS WI 175 P 63 QRSd 95 QRS -39 QT 402 T 51 QTc 447 Conclusion Sinus rhythm...normal P axis, V-rate 60- 99 Probable left atrial enlargement...P >50mS, <-0.10mV V1 Left axis deviation...QRS axis (-30,-90) No STEMI
[2025-10-16 16:13] VITALS: BP 134/82; PULSE 90; RESP 16; RESP 20; TEMP 36.9; O2SAT 98
[2025-10-16 16:21] LABS: Abs Immature Grans 0.03 10^3/uL (0.0-0.06); HCT 39.8 % (40.0-50.0); HGB 13.6 g/dL (13.5-17.5); Immature Grans % 0.2 %; MCH 30.7 pg (27.0-33.0); MCHC 34.2 % (32.0-36.0); MCV 90 fL (80-95); MPV 11.9 fL (8.0-11.0); Platelet Count 224 10^3/uL (130-400); RBC 4.43 10^6/uL (4.36-5.78); RDW 14.4 % (11.8-14.1); RDW-SD 47.5 fL; WBC 12.67 10^3/uL (4.4-10.8)
[2025-10-16] MEDS: Omnipaque 350 MG/ML 100 ML BTL IJ (16:23)
[2025-10-16] MEDS: Normal Saline - Diluent 50 ML VIAL IJ (16:23)
[2025-10-16] MEDS: Normal Saline Flush 10 ML SYR IVP (16:24)
--- NOTE | 2025-10-16 16:30 | W.ED.GENAD ---
Discharge Plan Disposition Patient Disposition: Home Condition: Stable Discharge Details Clinical Impression: Ileus, Crohn's disease, Nausea & vomiting Primary Care Provider: Natty Mckinney V ED Provider: Edwige Mahmood Home Meds and New Rx's Prescriptions: New prochlorperazine maleate [Compazine] 10 mg tablet 10 mg PO Q6H PRNQty: 10 0RF Continued hydrocodone-acetaminophen 10-325 mg Tablet 2 tab PO Q8H PRN diphenoxylate-atropine [Lomotil] 2.5-0.025 mg tablet 4 tab PO TID cyanocobalamin (vitamin B-12) 1,000 mcg/mL kit 1,000 mcg subcut .[id number] methadone [Dolophine] 10 mg tablet 10 mg PO TID Patient Comments: Pt. states he takes this medication 0900pm 0200am 0400am albuterol sulfate 90 mcg/actuation HFA aerosol inhaler 2 puff inhalation Q6H PRN nitroglycerin 0.4 mg tablet, sublingual 0.4 mg sublingual Q5M PRN Rx Instructions: do not exceed 3 doses per episode (DME) OptiChamber Nathalia Lg Mask Spacer See Rx Instructions .Route Rx Instructions: As directed parenteral electrolytes Syringe IV famotidine 20 mg tablet 20 mg PO DAILY Patient Comments: TAKE ONE TABLET BY MOUTH THREE TIMES WEEKLY TO PREVENT STOMACH BLEEDING diclofenac sodium [Voltaren] 1 % Gel 2 - 4 g TOPICAL QID PRN (Reason: Hand pain) naloxone [Narcan] 4 mg/actuation Warren,Non-Aerosol 1 spray INTRANASAL Q3M ibuprofen 600 mg tablet 600 mg PO TID Qty: 42 0RF Discharge Instructions Instructions: Inflammatory Bowel Disease (DC) Additional Instructions: We have recommended admission, however you have declined Please take the Compazine as needed for nausea and vomiting and engage in clear liquids only until you have a bowel movement, if your pain worsens and the vomiting worsens, please return immediately for reassessment Stand Alone Forms: Portal Information Discharge Data Discharge Date/Time-TO BE ENTERED AT DEPARTURE: 10/16/25 17:37 HPI General Date/Time Provider Initiated Documentation: 10/16/25 15:47. HPI Narrative: This 60-year-old male with history of Crohn's disease with ileostomy and TPN feedings, short gut syndrome presents with vomiting and pain in abdomen since this morning. States he does eat some food but has difficulty digesting it limits what he eats. Denies known sick contacts. Denies any blood in vomitus. Has not had any gas or stool in his ostomy since last evening. Last surgery was in 2002. Denies chest pain or shortness of breath. Denies alcohol consumption. Related Data Home Medications ?Medication ?Instructions ?Recorded ?Confirmed diphenoxylate-atropine 2.5 4 tab PO TID 12/08/20 10/16/25 mg-0.025 mg tablet (Lomotil) diclofenac sodium 1 % topical gel 2 - 4 g topical QID PRN Hand pain 02/07/21 10/16/25 (Voltaren) naloxone 4 mg/actuation nasal 1 spray intranasal Q3M 02/07/21 10/16/25 spray (Narcan) hydrocodone 10 mg-acetaminophen 2 tab PO Q8H PRN 03/23/21 10/16/25 325 mg tablet cyanocobalamin (vitamin B-12) 1,000 mcg subcut .[id number] 10/09/22 10/16/25 1,000 mcg/mL injection kit methadone 10 mg tablet (Dolophine) 10 mg PO TID 10/23/22 10/16/25 ibuprofen 600 mg tablet 600 mg PO TID #42 tabs 07/26/23 10/16/25 albuterol sulfate 90 mcg/actuation 2 puff inhalation Q6H PRN 11/06/24 10/16/25 aerosol inhaler inhalat.spacing dev,large mask 01/02/25 10/16/25 ([facility] with Large Mask) nitroglycerin 0.4 mg sublingual 0.4 mg sublingual Q5M PRN 01/02/25 10/16/25 tablet parenteral electrolytes syrg IV 01/02/25 02/23/25 famotidine 20 mg tablet 20 mg PO DAILY 10/16/25 10/16/25 prochlorperazine maleate 10 mg 10 mg PO Q6H PRN #10 tabs 10/16/25 tablet (Compazine) Previous Rx's ?Medication ?Instructions ?Recorded ibuprofen 600 mg tablet 600 mg PO TID #42 tabs 07/26/23 prochlorperazine maleate 10 mg 10 mg PO Q6H PRN #10 tabs 10/16/25 tablet (Compazine) Allergies Allergy/AdvReac Type Severity Reaction Status Date / Time No Known Allergies Allergy Verified 02/23/25 15:32 General Stated Complaint: GenMedical GENET: 4 Exam Narrative Exam Narrative: Alert and oriented 60-year-old male in acute discomfort, oropharynx patent uvula midline bowel sounds actually intact, no stool or gas noted in ostomy diffusely tender abdomen cardiac rate rhythm regular no respiratory distress Course Vital Signs Vital signs: Vital Signs Temperature 36.9 C 10/16/25 15:47 Pulse 90 10/16/25 15:47 Respiratory Rate 16 10/16/25 15:47 Blood Pressure 134/82 10/16/25 15:47 Pulse Oximetry 98 10/16/25 15:47 Temperature 36.9 C 10/16/25 16:13 Pulse 90 10/16/25 16:13 Respiratory Rate 20 10/16/25 16:13 Respiratory Effort Normal 10/16/25 16:13 Respiratory Depth Normal 10/16/25 16:13 Respiratory Pattern Normal 10/16/25 16:13 Blood Pressure 134/82 10/16/25 16:13 Pulse Oximetry 98 10/16/25 16:13 Oxygen Delivery Method Room Air 10/16/25 16:13 Pain Level 5 10/16/25 16:13 Lab/Test Results Lab/Test Results: Laboratory Tests Range/Units 10/16/25 16:10 WBC (4.4-10.8) 10^3/uL 12.67 H RBC (4.36-5.78) 10^6/uL 4.43 Hgb (13.5-17.5) g/dL 13.6 Hct (40.0-50.0) % 39.8 L MCV (80-95) fL 90 MCH (27.0-33.0) pg 30.7 MCHC (32.0-36.0) % 34.2 RDW (11.8-14.1) % 14.4 H Plt Count (130-400) 10^3/uL 224 MPV (8.0-11.0) fL 11.9 H Immature Gran % % 0.2 Neutrophils % % 79.5 Lymphocytes % % 14.1 Monocytes % % 5.7 Eosinophils % % 0.1 Basophils % % 0.4 Nucleated RBC % (0.0-0.3) % 0.0 Absolute Neutrophils (1.2-6.7) 10^3/uL 10.07 H Absolute Lymphocytes (1.2-3.4) 10^3/uL 1.79 Absolute Monocytes (0.1-0.8) 10^3/uL 0.72 Absolute Eosinophils (0.0-0.7) 10^3/uL 0.01 Absolute Basophils (0.0-0.2) 10^3/uL 0.05 Medical Decision Making Results: CT abdomen and pelvis shows ileus versus developing bowel obstruction CBC shows mild leukocytosis of 12.67 BUN of 25 likely consistent with dehydration Assessment and plan: Patient with mild leukocytosis and possible ileus versus developing bowel obstruction. We talked about being admitted to the hospital and being kept on IV fluids to pass the obstruction. Patient is adamantly refusing to stay in the hospital and prefers to be discharged home at this time. He feels as though his nausea has improved and is able to tolerate p.o.. Patient left prior to discharge paperwork. He is fully alert, oriented, of decisional capacity and all results and discussions were had in the presence of patient's partner in room. I did recommend early recheck as soon as possible and return precautions were reviewed in detail and patient expressed understanding PFSH All Active Problems (Updated 10/16/25 @ 17:31 by NITIN Ram) Nausea & vomiting (Acute) Crohn's disease (Chronic) Ileus (Acute) Hearing loss (Acute) scheduled for audiogram Oral candidiasis (Acute) Osteoarthritis of left hip (Acute) POCUS injection: 02/12/2025 Arthritis of right acromioclavicular joint (Acute) Arthritis of right glenohumeral joint (Acute) Advanced care planning/counseling discussion (Acute) Chronic anticoagulation (Acute) History of DVT (deep vein thrombosis) (Acute) History of vascular access device (Acute) History of prostate cancer (Acute) Radiation therapy 2019, [place]. [place] [facility] Venous thrombosis in left shoulder area (Acute) Cellulitis of left upper arm (Acute) Left arm swelling (Acute) Chronic abdominal pain (Acute) Short gut syndrome (Chronic) Malnutrition (Acute) Internal derangement of right knee (Acute) Osteoarthritis of right knee (Acute) Vision changes (Acute) Joint pain (Acute) Ileostomy status (Chronic) Crohn's disease (Chronic) Pain in elbow joint (Acute) Ulnar abutment syndrome of both wrists (Acute) Degenerative arthritis of carpometacarpal joint of thumb (Acute) Medical History (Updated 10/16/25 @ 17:31 by NITIN Ram) Pain in finger Encounter for other preprocedural examination Elevated C-reactive protein (CRP) Leukocytosis Pain in joint of left knee Axillary vein thrombosis Pericardial effusion Bacteremia PIC line (peripherally inserted central catheter) removal PTSD (post-traumatic stress disorder) Pain in right shoulder Palliative care encounter Fever Anxiety Catheter-related bloodstream infection (CRBSI) Fever Chronic prescription opiate use Unintended weight loss Methadone use Elevated liver function tests Smoker Raynaud's disease Depression Dyspnea on exertion Vitamin B12 deficiency Sinus pain Postprandial vomiting Syncope Fatigue Abdominal pain Liver mass Disease of gallbladder, unspecified Infected cyst of skin tx with abx Preventative health care Encounter for therapeutic drug level monitoring Preoperative examination Atrial enlargement, left Situational depression Dyspnea Neck pain Radiculopathy affecting upper extremity Other postprocedural complications and disorders of genitourinary system post procedure testicular pain Hip pain Gallstones Tongue lesion Anemia Hematuria Pelvic pain Other complications following infusion, transfusion and therapeutic injection, subsequent encounter Right knee pain RBBB RUQ pain Complaint of pain of toe Bilateral thumb pain Elevated PSA Pain of knee joint on movement Paresthesia Breast lump History of pneumonia Pulmonary nodule Surgical History (Updated 02/12/25 @ 09:47 by NITIN Salazar) Arthrofibrosis of total knee arthroplasty RIGHT S/P Manipulation: 04/20/2021 History of total right knee replacement (02/09/21) History of insertion of tunneled central venous catheter (CVC) with port (~05/2024) History of creation of ostomy had in situ since 1988 Hx of total knee arthroplasty Cataract extraction status Social History Smoking/Tobacco Use Status: Current every day Tobacco Type: cigarettes Tobacco: How many years used: 44 Smoking risk assessment performed?: Yes Alcohol Intake: never Drug use: Socially Substance use type: former substance user and marijuana Household members: none Housing: apartment current occupation: Disabled Current gender identity: male Do you feel safe at home: Yes Additional Social history: lives alone
[2025-10-16 16:36] LABS: Lipase 22 U/L (<53)
[2025-10-16 16:38] LABS: ALT 37 U/L (10-49); AST 33 U/L (<34); Albumin 4.4 g/dL (3.2-5.0); Alkaline Phosphatase 165 U/L (46-116); Anion Gap 7.9 mmol/L (3-11); BUN 25 mg/dL (9-23); Bilirubin, Total 0.80 mg/dL (0.2-1.2); CO2 27.1 mmol/L (20.0-31.0); Calcium 9.4 mg/dL (8.3-10.6); Chloride 106 mmol/L (98-107); Glucose 113 mg/dL (74-106); Potassium 3.7 mmol/L (3.5-5.1); Sodium 141 mmol/L (136-145); Total Protein 7.2 g/dL (5.7-8.2); Troponin I 4 ng/L (<54)
[2025-10-16 16:54] LABS: COVID-19 PCR Negative (Negative); RSV PCR Negative (Negative)
[2025-10-16 17:43] LABS: Troponin I 3 ng/L (<54)
[2025-10-16 19:00] LABS: Glucose Negative (Negative)
== END 2025-10-16 17:37 | disposition home or self-care (01) ==
PROVIDERS: Emergency Provider Physician Assistant; PCP Family Medicine
DX: K50.818 Crohn's disease of both small and large intestine with other complication (principal); R11.2 Nausea with vomiting, unspecified
CPT/HCPCS: 80053; 83690; 87637; 93005; 99285; 74177; 81003; 84484; 85025; 93010; 99284; J3490

== ENCOUNTER → 2025-10-26 00:28 | Outpatient (CLI) | payer MEDICARE, SELFPAY ==
--- NOTE | 2025-10-26 | DI.US_ITS ---
Exam(s) US ABDOMEN EXAM: US ABDOMEN CLINICAL HISTORY: ACUTE WORSENING EPIGASTRIC AND RUQ ABD PAIN,R10.9,H/O GALLSTONES 2021 TECHNIQUE: Ultrasound abdomen performed using standard protocol. COMPARISON: CT CT ABDOMEN PELVIS W from 10/16/2025 FINDINGS: LIVER: Normal size and echogenicity. No focal liver lesions are seen. GALLBLADDER: The gallbladder is filled with stones. No evidence of wall thickening. No pericholecystic fluid identified. SHAIKH'S SIGN: Negative. BILIARY SYSTEM: No intrahepatic or extrahepatic biliary ductal dilation. KIDNEYS: Kidneys are symmetric in size. No evidence of renal calculi. No evidence of hydronephrosis. No renal mass or cyst identified. PANCREAS: Normal where visualized. SPLEEN: Not enlarged. ABDOMINAL AORTA AND IVC: Visualized portions normal caliber. ASCITES: None seen. IMPRESSION: Cholelithiasis. No evidence of acute cholecystitis. No biliary dilatation. DATA REPOSITORY:
== END ==
LOC: DI 00:29
PROVIDERS: PCP Family Medicine; Visit Provider Family Medicine
DX: K80.80 Other cholelithiasis without obstruction (principal)
CPT/HCPCS: 76700

== ENCOUNTER → 2025-11-06 13:49 | Outpatient (BNVA) | payer MEDICARE, SELFPAY | PROVIDERS: PCP Family Medicine; Referring Provider Family Medicine; Visit Provider Surgery | DX: T82.524A Displacement of infusion catheter, initial encounter (principal) | CPT/HCPCS: 99213 ==

== ENCOUNTER 2025-11-17 09:46 | Day surgery (SDC) | payer MEDICARE, SELFPAY ==
--- NOTE | 2025-11-16 20:26 | PDOC.DSDIS_ITS ---
Date of service: 11/17/25 Discharge Plan Disposition Patient Disposition: Home Condition: Good Discharge Details Reason For Visit: insertion of gorshong catheter Attending Provider: Michael Oliver Primary Care Provider: Natty Mckinney V Home Meds and New Rx's Prescriptions: Continued hydrocodone-acetaminophen 10-325 mg Tablet 2 tab PO Q8H PRN diphenoxylate-atropine [Lomotil] 2.5-0.025 mg tablet 4 tab PO TID cyanocobalamin (vitamin B-12) 1,000 mcg/mL kit 1,000 mcg subcut .[id number] methadone [Dolophine] 10 mg tablet 10 mg PO TID Patient Comments: Pt. states he takes this medication 0900pm 0200am 0400am albuterol sulfate 90 mcg/actuation HFA aerosol inhaler 2 puff inhalation Q6H PRN nitroglycerin 0.4 mg tablet, sublingual 0.4 mg sublingual Q5M PRN Rx Instructions: do not exceed 3 doses per episode (DME) OptiChamber Nathalia Lg Mask Spacer See Rx Instructions .Route Rx Instructions: As directed parenteral electrolytes Syringe IV famotidine 20 mg tablet 20 mg PO DAILY Patient Comments: TAKE ONE TABLET BY MOUTH THREE TIMES WEEKLY TO PREVENT STOMACH BLEEDING prochlorperazine maleate [Compazine] 10 mg tablet 10 mg PO Q6H PRNQty: 10 0RF diclofenac sodium [Voltaren] 1 % Gel 2 - 4 g TOPICAL QID PRN (Reason: Hand pain) naloxone [Narcan] 4 mg/actuation Dietrich,Non-Aerosol 1 spray INTRANASAL Q3M ibuprofen 600 mg tablet 600 mg PO TID Qty: 42 0RF Discharge Instructions Additional Instructions: Krishan, was good to see you today. Everything went very smoothly, and the new catheter was inserted without any issues. There is a small clip affixing this to your skin with 2 sutures, that will leave in place for 2 weeks which should provide plenty of time for the small cuff to become incorporated under your skin. Hopefully that will help prevent any dislodgment over the life of the catheter. I did request an office visit on November 30 at 9:15 AM for removal of those stitches, and the small clip. It will only take a few minutes. There is also some Steri-Strips closer to your collarbone, where we accessed the vein itself. If these are still in place at the 1 week jamarcus, you can gently peel them off. The catheter has heparin instilled in it today, but it would be fine to use as soon as you need it. If you have any questions at all, or need anything, please do not hesitate to call. Stand Alone Forms: Portal Information Activity:: Activity as Tolerated Remove Dressings/Wound Care:: 24 hours Shower/Bathe:: 24 hours Diet:: As Tolerated Discharge Orders Discharge Orders: Discharge Order (Routine); Ordered 11/16/25 Ordered By: Michael Oliver DS: Diagnosis Discharge Diagnosis (1) History of vascular access device: Status: Acute
--- NOTE | 2025-11-16 20:28 | W.PM.OP ---
Operative Note Operative Note PRE-OP DIAGNOSIS: Short gut syndrome POST-OP DIAGNOSIS: same Dislodged right sided Groshong catheter PROCEDURE: Insertion of new left subclavian Groshong catheter SURGEON: Michael Oliver ANESTHESIA TYPE: Local By Surgeon and MAC Refer to Anesthesia Record ESTIMATED BLOOD LOSS: 5 PATHOLOGY: none sent COMPLICATIONS: None Patient was transported to: same day Implants: 8 Icelandic tunneled Groshong catheter Indications: Micky is a 60-year-old man with short gut syndrome who requires total parenteral nutrition supplementation. This was previously delivered to a right sided internal jugular tunneled Groshong catheter, which has become dislodged. Procedure Description: I met with Micky in the preoperative area, and we reviewed the plan for insertion of a new left sided tunneled central venous catheter. He is able to provide informed consent. We moved back to the operating room, and he was assisted onto the OR table. He was padded and supported appropriately, and the left arm was gently tucked. General anesthesia was initiated with a natural airway. I then prepped and draped the left chest and neck. Using ultrasound guidance, I anesthetized the skin and subclavian position. Next, I cannulated the left subclavian vein, again using real-time ultrasound guidance. I aspirated dark red blood. A guidewire was gently advanced through the needle, and central venous position was confirmed using fluoroscopy. A peel-away introducer was then advanced over the guidewire, and an 8 Icelandic Groshong catheter was advanced towards the atriocaval junction. I then measured against the chest wall for an appropriate length of tunneled catheter which would ensure positioning of the subcutaneous cuff. This trajectory was anesthetized, and the tunneling device was affixed to the end of the catheter. This was then brought out through a separate incision on the left chest wall delivering the catheter into the subcutaneous position. Catheter length was then trimmed, and the external components were affixed according to the manufactures instructions. I aspirated dark red blood through the catheter, then flushed it with saline. I then flushed the catheter with heparin. The external skin affixing device was then used to affix the catheter to the left chest wall. Steri-Strips were used to reapproximate the percutaneous access site. The catheter was then dressed appropriately. I then turned my attention to the right side. I removed all of the previous dressings, and removed the old right sided subcutaneous Groshong catheter. A Band-Aid was applied to the site. Micky was then allowed to awaken from the anesthetic, and transferred back to the day surgery unit. Date of Procedure: 11/17/25
--- NOTE | 2025-11-17 | DI.RAD_ITS ---
Exam(s) XR PORTABLE CHEST AP EXAM: XR PORTABLE CHEST AP CLINICAL HISTORY: Central line insertion TECHNIQUE: 2D digital imaging was performed. COMPARISON: CT CT CHEST PE CTA from 04/27/2024 FINDINGS: Central line has been inserted via the left subclavian with tip in the superior vena cava. LUNGS: Clear. No pleural abnormality seen. HEART: Normal size. AORTA: Normal diameter. BONES: Unremarkable for age. Soft tissues: Unremarkable. IMPRESSION: Status post placement of central line. No pneumothorax. DATA REPOSITORY: RADIATION DOSE DELIVERED:
[2025-11-17 10:07] VITALS: BP 118/79; PULSE 85; RESP 12; TEMP 37; O2SAT 100
--- NOTE | 2025-11-17 10:19 | W.ANESPRE ---
General Info Date of Service Date Performed: 11/17/25 Height: 6 ft 1 in Weight: 86.9 kg Body Mass Index (BMI): 25.2 Surgical Procedure: Operation Date: 11/17/25 11:10 Proposed Procedure Side Surgeon p Insertion of [place] Catheter Left Michael Oliver MD Meds Allergies and Home Medications Allergies Allergy/AdvReac Type Severity Reaction Status Date / Time No Known Allergies Allergy Verified 11/17/25 09:57 Home Medication ?Medication ?Instructions ?Recorded diphenoxylate-atropine 2.5 4 tab PO TID 12/08/20 mg-0.025 mg tablet (Lomotil) diclofenac sodium 1 % topical gel 2 - 4 g topical QID PRN Hand pain 02/07/21 (Voltaren) naloxone 4 mg/actuation nasal 1 spray intranasal Q3M 02/07/21 spray (Narcan) hydrocodone 10 mg-acetaminophen 2 tab PO Q8H PRN 03/23/21 325 mg tablet cyanocobalamin (vitamin B-12) 1,000 mcg subcut .[id number] 10/09/22 1,000 mcg/mL injection kit methadone 10 mg tablet (Dolophine) 10 mg PO TID 10/23/22 ibuprofen 600 mg tablet 600 mg PO TID #42 tabs 07/26/23 albuterol sulfate 90 mcg/actuation 2 puff inhalation Q6H PRN 11/06/24 aerosol inhaler inhalat.spacing dev,large mask 01/02/25 ([facility] with Large Mask) nitroglycerin 0.4 mg sublingual 0.4 mg sublingual Q5M PRN 01/02/25 tablet parenteral electrolytes syrg IV 01/02/25 famotidine 20 mg tablet 20 mg PO DAILY 10/16/25 prochlorperazine maleate 10 mg 10 mg PO Q6H PRN #10 tabs 10/16/25 tablet (Compazine) Current Visit Medications: Current Medications Generic Name Dose Route Start Last Admin Trade Name Freq PRN Reason Stop Dose Admin Ringer's Solution 1,000 mls @ 80 mls/hr 11/17/25 06:00 IV 11/17/25 23:59 INFUSION CLAUDIA Cefazolin Sodium/Dextrose 2 gm in 50 mls @ 100 mls/hr 11/17/25 06:00 Ancef Duplex IVPB 11/17/25 23:59 PREOP CLAUDIA Sodium Chloride 0 ml 11/17/25 06:00 Normal Saline Flush 10 Ml Syr IV 11/17/25 23:59 PRN PRN Sodium Chloride 0 ml 11/17/25 06:00 Normal Saline 10 Ml Vial IJ 11/17/25 23:59 DIRECTED PRN Sterile Water 0 ml 11/17/25 06:00 Water,Injection,Sterile 10 Ml Vial IJ 11/17/25 23:59 DIRECTED PRN PFSH Active Problems Active Problems: Problem Status Onset Code Central venous catheter in place Acute Z95.828 Hearing loss Acute H91.90 Oral candidiasis Acute B37.0 Osteoarthritis of left hip Acute M16.12 Arthritis of right acromioclavicular joint Acute M19.011 Arthritis of right glenohumeral joint Acute M19.011 Advanced care planning/counseling discussion Acute Z71.89 Chronic anticoagulation Acute Z79.01 History of DVT (deep vein thrombosis) Acute Z86.718 History of vascular access device Acute Z98.890 History of prostate cancer Acute Z85.46 Venous thrombosis in left shoulder area Acute I82.602 Cellulitis of left upper arm Acute L03.114 Left arm swelling Acute M79.89 Chronic abdominal pain Acute R10.9, G89.29 Short gut syndrome Chronic K91.2 Malnutrition Acute E46 Internal derangement of right knee Acute M23.91 Osteoarthritis of right knee Acute M17.11 Vision changes Acute H53.9 Joint pain Acute M25.50 Ileostomy status Chronic Z93.2 Crohn's disease Chronic K50.90 Pain in elbow joint Acute M25.529 Ulnar abutment syndrome of both wrists Acute M25.831, M25.832 Degenerative arthritis of carpometacarpal joint of thumb Acute M18.9 Medical History Medical History Pain in finger Encounter for other preprocedural examination Elevated C-reactive protein (CRP) Leukocytosis Pain in joint of left knee Axillary vein thrombosis Pericardial effusion Bacteremia PIC line (peripherally inserted central catheter) removal PTSD (post-traumatic stress disorder) Pain in right shoulder Palliative care encounter Fever Anxiety Catheter-related bloodstream infection (CRBSI) Fever Chronic prescription opiate use Unintended weight loss Methadone use Elevated liver function tests Smoker Raynaud's disease Depression Dyspnea on exertion Vitamin B12 deficiency Sinus pain Postprandial vomiting Syncope Fatigue Abdominal pain Liver mass Disease of gallbladder, unspecified Infected cyst of skin tx with abx Preventative health care Encounter for therapeutic drug level monitoring Preoperative examination Atrial enlargement, left Situational depression Dyspnea Neck pain Radiculopathy affecting upper extremity Other postprocedural complications and disorders of genitourinary system post procedure testicular pain Hip pain Gallstones Tongue lesion Anemia Hematuria Pelvic pain Other complications following infusion, transfusion and therapeutic injection, subsequent encounter Right knee pain RBBB RUQ pain Complaint of pain of toe Bilateral thumb pain Elevated PSA Pain of knee joint on movement Paresthesia Breast lump History of pneumonia Pulmonary nodule Surgical History Surgical History Arthrofibrosis of total knee arthroplasty RIGHT S/P Manipulation: 04/20/2021 History of total right knee replacement (02/09/21) History of insertion of tunneled central venous catheter (CVC) with port (~05/2024) History of creation of ostomy had in situ since 1988 Hx of total knee arthroplasty Cataract extraction status Tobacco Smoking/Tobacco Use Status: Current every day Tobacco Type: cigarettes Alcohol Alcohol Intake: never Substance Use Substance use: Socially Substance use type: former substance user Vital Signs and Lab Results Vital Signs Most Recent Vital Signs in EMR: Most Recent Vital Signs Temp Pulse Resp BP Pulse Ox 37.0 C 85 12 118/79 100 11/17/25 10:07 11/17/25 10:07 11/17/25 10:07 11/17/25 10:07 11/17/25 10:07 Lab Results Complete Blood Count: WBC, (4.4-10.8) 10.07 10^3/uL 11/11/25, 10:41 RBC, (4.36-5.78) 4.05 10^6/uL L 11/11/25, 10:41 Hgb, (13.5-17.5) 13.1 g/dL L 11/11/25, 10:41 Hct, (40.0-50.0) 38.5 % L 11/11/25, 10:41 Plt Count, (130-400) 219 10^3/uL 11/11/25, 10:41 Complete Metabolic Panel: Sodium, (136-145) 138 mmol/L 11/11/25, 10:41 Potassium, (3.5-5.1) 4.1 mmol/L 11/11/25, 10:41 Chloride, (98-107) 104 mmol/L 11/11/25, 10:41 Carbon Dioxide, (20.0-31.0) 26.5 mmol/L 11/11/25, 10:41 BUN, (9-23) 24 mg/dL H 11/11/25, 10:41 Creatinine, (0.73-1.18) 0.86 mg/dL 11/11/25, 10:41 Est GFR (CKD-EPI 2020), (mL/min/1.73m2) 90.26 11/11/25, 10:41 Magnesium, (1.6-2.6) 2.0 mg/dL 11/11/25, 10:41 Calcium, (8.3-10.6) 8.9 mg/dL 11/11/25, 10:41 Albumin, (3.2-5.0) 4.3 g/dL 11/11/25, 10:41 Glucose, (74-106) 145 mg/dL H 11/11/25, 10:41 C-Reactive Protein, (<=0.50) < 0.50 mg/dL 11/11/25, 10:41 Liver Function Panel: ALT, (10-49) 41 U/L 11/11/25, 10:41 AST, (<34) 29 U/L 11/11/25, 10:41 Imaging and Studies Imaging and Studies Study information below may be from another EMR and interpreted by another provider. Please see original notes in EMR for more complete details. EKG Summary: 10/16/25 Conclusion Sinus rhythm...normal P axis, V-rate 60- 99 Probable left atrial enlargement...P >50mS, <-0.10mV V1 Left axis deviation...QRS axis (-30,-90) No STEMI 04/27/24 Conclusion Sinus tachycardia [address] segment changes Stress Test Summary: 04/23/23 Patient's ejection fraction was 45% with exercise. There were no wall motion abnormalities. No evidence of ischemia on the imaging portion of this exam This represents a normal SPECT stress test. Echocardiogram Summary: 04/25/24 Conclusion Normal left ventricular wall thickness and chamber size. Ejection fraction is 60 to 65%. Wall motion is normal Normal right ventricular size and function Both atria are normal in size There is no structural or hemodynamically significant valvular disease. Specifically, no valvular vegetations are identified Pulmonary Function Summary: 05/14/19 IMPRESSION Mild obstructive airways disease with no significant bronchodilator response. Clinical correlation recommended. Anesthesia Assessment and Plan Anesthesia History Personal History: No History of Anesthesia Complications Family History: No Family History of Anesthesia Complications Exercise Tolerance Exercise Tolerance: Metabolic Equivalents>4 Pertinent Negatives Pertinent Negatives: No Symptoms of GERD, No Major Cardiovascular Symptoms or Complaints and No Major Pulmonary Symptoms or Complaints Cardiac & Pulmonary Exam Cardiac Exam: Normal S1/S2 Heart Sounds Pulmonary Exam: Clear Bilateral Breath Sounds Implantable Cardiac Device Does patient have a Pacemaker or an ICD?: No Airway Exam Known Difficult Airway: No Mallampati Class: 2 Mouth Opening: Normal (> 3cm) Thyromental Distance: Greater than 3 cm Facial Hair: Full [place] Neck Range of Motion: Full ROM Neck Circumference: Normal Teeth Condition: Removable Dentures/Plates Upper, Removable Dentures/Plates Lower and Edentulous ASA Classification ASA Score: ASA 3 Emergency Case?: No NPO Status NPO Status: NPO Clears >2 hours, Solids >8 hours Anesthesia Plan Resuscitation Status: Full Code Anesthesia Technique: General Anesthesia Airway Planned: Natural Airway Monitors Used: Standard Monitors Preoperative Comments:: Short gut syndrome requiring TPN.
[2025-11-17] MEDS: Lactated Ringers 1,000 ML 80 ML IV (10:29)
[2025-11-17 10:43] VITALS: BMI 25.2
[2025-11-17] MEDS: ceFAZolin 2 GM/50 ML BAG IVPB (11:53)
--- NOTE | 2025-11-17 12:10 | DI.RAD_ITS ---
Exam(s) XR FLOURO OR C-ARM <1 HR EXAM: XR FLOURO OR C-ARM <1 HR CLINICAL HISTORY: HX VASCULAR ACCESS DEVICE. TECHNIQUE: 2D and realtime digital imaging was performed. COMPARISON: No exams were available for comparison FINDINGS: Hard copy images show placement of a catheter via the left subclavian with tip in the superior vena cava. Please see procedure note for details. Fluoro time: 4.9seconds RADIATION DOSE DELIVERED: marta Horner=0.67 mGy
[2025-11-17] MEDS: Bupivacaine 0.5% Pres-Free W/EPI 30 ML VIAL (12:11)
[2025-11-17] MEDS: Heparin 500 UNITS/5 ML SYRINGE (12:11)
[2025-11-17 12:23] VITALS: BP 119/76; PULSE 82; RESP 14; TEMP 36.3; O2SAT 97
[2025-11-17 13:00] VITALS: BP 127/76; PULSE 67; RESP 14; TEMP 36.8; O2SAT 97
--- NOTE | 2025-11-17 14:32 | W.ANESPOSTOP ---
Postoperative Evaluation Date, Time and Location Date Performed: 11/17/25 Time Performed: 12:32 Patient Location: Day Surgery Unit Vital Signs Most Recent Imported Vital Signs: Most Recent Vital Signs Temp Pulse Resp BP Pulse Ox 36.8 C 67 14 127/76 97 11/17/25 13:00 11/17/25 13:00 11/17/25 13:00 11/17/25 13:00 11/17/25 13:00 Pain Score Most Recent Pain Score: Most Recent Pain Score Pain Level 0 11/17/25 13:00 Assessment Mental Status: Awake (Alert & Oriented to Patient Baseline) Airway and Respiratory Function: Patent airway with normal (patient baseline) respiratory exam Cardiovascular Function: Hemodynamically Stable Hydration Status: Adequately Hydrated Nausea & Vomiting: No Nausea or Vomiting Pain: Pt. Denies Any Pain Peripheral Nerve Block: Patient did not receive a nerve block
== END 2025-11-17 13:10 | disposition home or self-care (01) ==
LOC: SUR 09:46
PROVIDERS: PCP Family Medicine; Visit Provider Surgery
PROC: (CPT 36558; principal; 2025-11-17 11:00)
DX: T82.524A Displacement of infusion catheter, initial encounter (principal); K90.829 Short bowel syndrome, unspecified
CPT/HCPCS: 36558; 36590; 76000; 71045; J0690; J1642; J2003; J2250; J2704; J3010

== ENCOUNTER 2025-11-18 09:30 | Outpatient (RCR) | payer MEDICARE, SELFPAY ==
[2025-10-22] MEDS: Normal Saline Flush 10 ML SYR IVP (11:20)
[2025-10-29] MEDS: Normal Saline Flush 10 ML SYR IVP (14:40)
[2025-11-05] MEDS: Normal Saline Flush 10 ML SYR IVP (14:30)
[2025-11-11 11:00] LABS: Abs Immature Grans 0.03 10^3/uL (0.0-0.06); HCT 38.5 % (40.0-50.0); HGB 13.1 g/dL (13.5-17.5); Immature Grans % 0.3 %; MCH 32.3 pg (27.0-33.0); MCHC 34.0 % (32.0-36.0); MCV 95 fL (80-95); MPV 11.6 fL (8.0-11.0); Platelet Count 219 10^3/uL (130-400); RBC 4.05 10^6/uL (4.36-5.78); RDW 14.3 % (11.8-14.1); RDW-SD 49.3 fL; WBC 10.07 10^3/uL (4.4-10.8)
[2025-11-11 11:11] LABS: C-Reactive Protein < 0.50 mg/dL (<=0.50); Magnesium 2.0 mg/dL (1.6-2.6)
[2025-11-11 12:36] LABS: ALT 41 U/L (10-49); AST 29 U/L (<34); Albumin 4.3 g/dL (3.2-5.0); Alkaline Phosphatase 150 U/L (46-116); Anion Gap 7.5 mmol/L (3-11); BUN 24 mg/dL (9-23); Bilirubin, Total 0.5 mg/dL (0.2-1.2); CO2 26.5 mmol/L (20.0-31.0); Calcium 8.9 mg/dL (8.3-10.6); Chloride 104 mmol/L (98-107); Glucose 145 mg/dL (74-106); Potassium 4.1 mmol/L (3.5-5.1); Sodium 138 mmol/L (136-145); Total Protein 6.8 g/dL (5.7-8.2)
[2025-11-16 10:46] LABS: Prealbumin 28 mg/dL (20-40)
[2025-11-18] MEDS: Normal Saline Flush 10 ML SYR IVP (09:37)
== END 2025-11-18 23:59 | disposition home or self-care (01) ==
LOC: INF 09:30
PROVIDERS: PCP Family Medicine; Visit Provider Family Medicine
DX: E46 Unspecified protein-calorie malnutrition (principal); Z45.2 Encounter for adjustment and management of vascular access device
CPT/HCPCS: 36592; 80053; 96523; 83735; 84100; 84134; 84478; 85025; 86140